=== PATIENT | female | born 1995 | race Caucasian/White ===

== ENCOUNTER 2018-04-04 01:00 | Emergency (ER) | payer SELFPAY ==
[2018-04-04] MEDS ORDERED: MUPIROCIN 2% OINT 22GM TUBE TOP ONE (01:36)
[2018-04-04] MEDS ORDERED: HYDROCODONE/APAP 5/325 MG TAB ONE (01:41)
--- NOTE | 2018-04-04 01:44 | ER ---
Nurse's Notes [facility] Name: Enid Munguia Age: 22 yrs Sex: Female : 1995 Arrival Date: 04/04/2018 Time: 01:05 Bed 7 Private MD: Diagnosis: Painful lesion right perineum Presentation: 04/04 01:11 Presenting complaint: Patient states: I'VE GOT A RED BUMPY AREA NEAR MY UTERUS AND IT bp HURTS WHEN I PEE. Transition of care: patient was not received from another setting of care. Onset of symptoms is unknown. Initial Sepsis Screen: Does the patient meet any 2 criteria? HR > 90 bpm. No. Patient's initial sepsis screen is negative. Does the patient have a suspected source of infection? No. Patient's initial sepsis screen is negative. Care prior to arrival: None. 01:11 Method Of Arrival: Ambulatory bp 01:11 Acuity: DERRELL 3 bp Triage Assessment: 01:13 General: Appears in no apparent distress. comfortable, Behavior is calm, cooperative, bp appropriate for age. Pain: Complains of pain in pelvis. GI: No signs and/or symptoms were reported involving the gastrointestinal system. 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 - Social history:: Smoking status: Patient uses tobacco products, denies chronic smoking, but will smoke occasionally, Patient/guardian denies using alcohol. Screenin:38 Abuse screen: Denies threats or abuse. Denies injuries from another. Nutritional mg2 screening: No deficits noted. Tuberculosis screening: No symptoms or risk factors identified. Fall Risk None identified. Assessment: 01:36 General: Appears in no apparent distress. comfortable, Behavior is calm, cooperative. mg2 Pain: Complains of pain in right groin area Pain does not radiate. Pain currently is 3 out of 10 on a pain scale. Quality of pain is described as aching, Is intermittent, Aggravated by touch. Neuro: Level of Consciousness is awake, alert, obeys commands, Oriented to person, place, time. Cardiovascular: Capillary refill < 3 seconds Patient's skin is warm and dry. Respiratory: Airway is patent Respiratory effort is even, unlabored, Respiratory pattern is regular, symmetrical. GI: No signs and/or symptoms were reported involving the gastrointestinal system. : Blisters noted on labia. EENT: No signs and/or symptoms were reported regarding the EENT system. Derm: No signs and/or symptoms reported regarding the dermatologic system. Derm: No signs and/or symptoms reported regarding the dermatologic system. Skin is intact, Skin is pink, warm \T\ dry. normal. Musculoskeletal: No signs and/or symptoms reported regarding the musculoskeletal system. Vital Signs: 01:13 BP 120 / 91; Pulse 97; Resp 16; Temp 98.4; Pulse Ox 97% ; Weight 81.65 kg; Height 5 ft. bp 2 in. (157.48 cm); 01:13 Body Mass Index 32.92 (81.65 kg, 157.48 cm) bp ED Course: 01:05 Patient arrived in ED. al2 01:12 Triage completed. bp 01:13 Arm band placed on. bp 01:28 Juan Samson MD is Attending Physician. pkl 01:33 London Perez, CASSIDY is Primary Nurse. mg2 01:39 Patient has correct armband on for positive identification. Placed in gown. Bed in low mg2 position. Call light in reach. Door closed. Warm blanket given. 02:04 No provider procedures requiring assistance completed. Patient did not have IV access mg2 during this emergency room visit. Administered Medications: 01:42 Drug: [place] 5 mg-325 mg 1 tabs Route: PO; mg2 02:04 Follow up: Response: No adverse reaction; Medication administered at discharge. mg2 Outcome: 01:44 Discharge ordered by . pkl 02:05 Discharged to home ambulatory. mg2 02:05 Condition: stable 02:05 Discharge instructions given to patient, Instructed on discharge instructions, follow up and referral plans. Demonstrated understanding of instructions, follow-up care, medications, Prescriptions given X 2. 02:05 Patient left the ED. mg2 Signatures: Juan Samson MD MD pkl Peltier, Brian RN Gisell Lynch al2 London Perez RN RN mg2
--- NOTE | 2018-04-04 01:45 | EDPHYS ---
Physician Documentation [facility] Name: Enid Munguia Age: 22 yrs Sex: Female : 1995 Arrival Date: 04/04/2018 Time: 01:05 Bed 7 Private MD: ED Physician Juan Samson HPI: 04/04 01:36 This 22 yrs old Female presents to ER via Ambulatory with complaints of pkl Abdominal Pain. 01:36 The patient presents with painful bump right perineum. Onset: The symptoms/episode pkl began/occurred 1 week(s) ago. Has appt. at [facility] on ( 04/05/18 ). 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 - Social history:: Smoking status: Patient uses tobacco products, denies chronic smoking, but will smoke occasionally, Patient/guardian denies using alcohol. ROS: 01:36 Positive for painful bump right perineum . pkl 01:36 Eyes: Negative for injury, pain, redness, and discharge, ENT: Negative for injury, pain, and discharge, Neck: Negative for injury, pain, and swelling, Cardiovascular: Negative for chest pain, palpitations, and edema, Respiratory: Negative for shortness of breath, cough, wheezing, and pleuritic chest pain, Abdomen/GI: Negative for abdominal pain, nausea, vomiting, diarrhea, and constipation, Back: Negative for injury and pain. 01:36 MS/extremity: Negative for acute changes. 01:36 Skin: Negative for rash. 01:36 Neuro: Negative for altered mental status. Exam: 01:36 Head/Face: Normocephalic, atraumatic. Eyes: Pupils equal round and reactive to light, pkl extra-ocular motions intact. Lids and lashes normal. Conjunctiva and sclera are non-icteric and not injected. Cornea within normal limits. Periorbital areas with no swelling, redness, or edema. ENT: Nares patent. No nasal discharge, no septal abnormalities noted. Tympanic membranes are normal and external auditory canals are clear. Oropharynx with no redness, swelling, or masses, exudates, or evidence of obstruction, uvula midline. Mucous membranes moist. Neck: Trachea midline, no thyromegaly or masses palpated, and no cervical lymphadenopathy. Supple, full range of motion without nuchal rigidity, or vertebral point tenderness. No Meningismus. Chest/axilla: Normal chest wall appearance and motion. Nontender with no deformity. No lesions are appreciated. Cardiovascular: Regular rate and rhythm with a normal S1 and S2. No gallops, murmurs, or rubs. Normal PMI, no JVD. No pulse deficits. Respiratory: Lungs have equal breath sounds bilaterally, clear to auscultation and percussion. No rales, rhonchi or wheezes noted. No increased work of breathing, no retractions or nasal flaring. Abdomen/GI: Soft, non-tender, with normal bowel sounds. No distension or tympany. No guarding or rebound. No evidence of tenderness throughout. Back: No spinal tenderness. No costovertebral tenderness. Full range of motion. 01:36 : Pelvic Exam: External exam: painful bump right perineum. 01:36 Musculoskeletal/extremity: Exam is negative for acute changes. 01:36 Neuro: Orientation: is normal, Mentation: is normal, Cranial nerves: grossly normal, Motor: is normal. Vital Signs: 01:13 BP 120 / 91; Pulse 97; Resp 16; Temp 98.4; Pulse Ox 97% ; Weight 81.65 kg; Height 5 ft. bp 2 in. (157.48 cm); 01:13 Body Mass Index 32.92 (81.65 kg, 157.48 cm) bp MDM: 01:28 Patient medically screened. pkl 01:43 Data reviewed: vital signs, nurses notes. pkl Administered Medications: 01:42 Drug: [place] 5 mg-325 mg 1 tabs Route: PO; mg2 02:04 Follow up: Response: No adverse reaction; Medication administered at discharge. mg2 Disposition: 04/04/18 01:44 Discharged to Home. Impression: Painful lesion right perineum. - Condition is Stable. - Prescriptions for Ultram 50 mg Oral Tablet - take 1 tablet by ORAL route every 8 hours As needed; 20 tablet. Doxycycline Hyclate 100 mg Oral Tablet - take 1 tablet by ORAL route every 12 hours; 20 tablet. - Medication Reconciliation Form, Thank You Letter, Antibiotic Education, Prescription Opioid Use form. - Follow up: Private Physician; When: 2 - 3 days; Reason: Re-evaluation by your physician. - Problem is new. - Symptoms are unchanged. Signatures: Juan Samson MD MD pkl Hammad Orta, RN RN bp London Perez, RN RN mg2 Corrections: (The following items were deleted from the chart) 02:05 01:44 04/04/2018 01:44 Discharged to Home. Impression: Painful lesion right perineum. mg2 Condition is Stable. Forms are Medication Reconciliation Form, Thank You Letter, Antibiotic Education, Prescription Opioid Use. Follow up: Private Physician; When: 2 - 3 days; Reason: Re-evaluation by your physician. Problem is new. Symptoms are unchanged. pkl
== END 2018-04-04 02:05 | disposition home or self-care (01) ==
LOC: ER 01:00
DX: N90.89 Other specified noninflammatory disorders of vulva and perineum (principal); Z72.0 Tobacco use
CPT/HCPCS: 99283

== ENCOUNTER 2018-04-15 20:19 | Emergency (ER) | payer SELFPAY ==
[2018-04-15] MEDS ORDERED: NA CHLORIDE 0.9% 1,000 ML ONE (20:39)
[2018-04-15 21:03] LABS: Absolute Lymphocytes (CBC) 2.1 K/uL (0.7-4.9); Absolute Monocytes 0.6 K/uL (0.1-1.3); Basophils % 0.3 % (0-1.3); Eosinophils % 0.3 % (0-4.4); Hematocrit 39.5 % (36.0-45.0); Lymphocytes % 19.6 % (15.3-44.8); MCH 24.8 pg (27.0-35.0); MPV 7.8 fL (7.6-11.3); Monocytes % 5.7 % (3.3-12.3); RBC Red Blood Cell Count 5.41 M/uL (3.86-4.86)
[2018-04-15 21:06] LABS: Bicarbonate 20 mEq/L (21-31); Glucose Level 110 mg/dL (65-120); Potassium 3.6 mEq/L (3.6-5.0); Sodium Level 136 mEq/L (135-145)
[2018-04-15 21:07] LABS: BUN Blood Urea Nitrogen 8 mg/dL (6-20)
[2018-04-15 21:19] LABS: Urine Blood NEGATIVE (NEG); Urine Glucose NEGATIVE (NEG); Urine Protein NEGATIVE (NEG); Urine Specific Gravity >1.030 (1.005-1.030)
--- NOTE | 2018-04-15 21:43 | RAD REPORT ---
EXAM DESCRIPTION: CT - Head C Spine Mpr Wo Con - 04/15/2018 9:08 pm CLINICAL HISTORY: Head and neck injury status post fall. Head and neck pain COMPARISON: None. TECHNIQUE: Computed axial tomography of the head and cervical spine was obtained. Sagittal and coronal reconstruction was performed. All CT scans are performed using dose optimization technique as appropriate and may include automated exposure control or mA/KV adjustment according to patient size. FINDINGS: An intracranial bleed is not seen. The ventricles are normal in caliber. An extra-axial fl uid collection is not noted.Fluid within the visualized sinuses and mastoids is not seen A cervical fracture is not visualized. No dislocation is noted. 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 A cervical fracture is not visualized. If the patient continues to have symptoms to suggest intracra nial /spinal cord pathology then MRI would be recommended
[2018-04-15] MEDS ORDERED: ACETAMINOPHEN 500 MG TAB ONE (21:51)
--- NOTE | 2018-04-15 22:06 | RAD REPORT ---
EXAM DESCRIPTION: RAD - Pelvis - 04/15/2018 9:21 pm CLINICAL HISTORY: Pelvic pain status post injury FINDINGS: No fracture or dislocation is seen.
--- NOTE | 2018-04-15 22:08 | RAD REPORT ---
EXAM DESCRIPTION: Indu Single View04/15/2018 9:21 pm CLINICAL HISTORY: Chest pain COMPARISON: none FINDINGS: The lungs appear clear of acute infiltrate. The heart is normal size IMPRESSION: No acute abnormalities displayed
[2018-04-15] MEDS ORDERED: ONDANSETRON 4 MG/2 ML VIAL ONE ×2 (22:10→23:38)
[2018-04-15] MEDS ORDERED: NA CHLORIDE 0.9% 500 ML ONE (23:37)
[2018-04-15] MEDS ORDERED: METOCLOPRAMIDE 10 MG/2mL INJ ONE (23:37)
[2018-04-15] MEDS ORDERED: Morphine 2 MG/2 ML SYR ONE (23:39)
--- NOTE | 2018-04-15 23:43 | EDPHYS ---
Physician Documentation [facility] Name: Enid Munguia Age: 22 yrs Sex: Female : 1995 Arrival Date: 04/15/2018 Time: 20:22 Bed 14 Private MD: ED Physician Juan Samson HPI: 04/15 20:25 This 22 yrs old Female presents to ER via EMS with complaints of Fall Injury. cp 20:25 Details of fall: The patient fell from an upright position, while walking, and struck a cp tile surface. 20:25 Onset: The symptoms/episode began/occurred just prior to arrival. Associated injuries: cp The patient sustained injury to the head, contusion, swelling, tenderness. Severity of symptoms: in the emergency department the symptoms are unchanged, despite EMS interventions. Patient reports slip and fall tonight while in kitchen. Unwitnessed with LOC. 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 - Social history:: Smoking status: Patient/guardian denies using tobacco. ROS: 20:30 Constitutional: Negative for body aches, chills, fever, poor PO intake. cp 20:30 Eyes: Negative for injury, pain, redness, and discharge. cp 20:30 ENT: Negative for drainage from ear(s), ear pain, sore throat, difficulty swallowing, difficulty handling secretions. 20:30 Neck: Negative for stiffness. 20:30 Cardiovascular: Negative for chest pain, edema, palpitations. 20:30 Respiratory: Negative for cough, shortness of breath, wheezing. 20:30 Abdomen/GI: Negative for abdominal pain, vomiting, diarrhea, constipation, black/tarry stool, rectal bleeding. 20:30 Back: Negative for pain at rest, pain with movement, radiated pain. 20:30 Skin: Negative for cellulitis, rash. 20:30 Neuro: Positive for headache, loss of consciousness, Negative for seizure activity. 20:30 All other systems are negative. Exam: 20:38 Constitutional: The patient appears in no acute distress, alert, awake, non-toxic, well cp developed, well nourished. 20:38 Head/face: Noted is contusion, that is superficial, of the forehead, swelling, that is cp mild, of the forehead, tenderness, that is moderate, of the forehead. 20:38 Eyes: Periorbital structures: appear normal, Pupils: equal, round, and reactive to light and accomodation, Extraocular movements: intact throughout, Conjunctiva: normal, no exudate, no injection, Sclera: no appreciated abnormality, Lids and lashes: appear normal, bilaterally. 20:38 ENT: External ear(s): are unremarkable, Ear canal(s): are normal, clear, TM's: bulging, is not appreciated, bilaterally, dullness, bilaterally, erythema, is not appreciated, bilaterally, Nose: is normal, Mouth: Lips: moist, Oral mucosa: pink and intact, moist, Posterior pharynx: is normal, airway is patent, no erythema, no exudate. 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 20:38 Cardiovascular: Rate: normal, Rhythm: regular, Pulses: Pulses are 2+ in right radial artery and left radial artery. Edema: is not appreciated, JVD: is not appreciated. 20:38 Respiratory: the patient does not display signs of respiratory distress, Respirations: normal, no use of accessory muscles, no retractions, no splinting, no tachypnea, Breath sounds: are clear throughout, no decreased breath sounds, no stridor, no wheezing. 20:38 Abdomen/GI: Inspection: abdomen appears normal, Bowel sounds: active, all quadrants, Palpation: abdomen is soft and non-tender, in all quadrants, rebound tenderness, is not appreciated, voluntary guarding, is not appreciated, involuntary guarding, is not appreciated. 20:38 Back: pain, is absent. 20:38 Musculoskeletal/extremity: Exam is negative for calf tenderness, decreased range of motion, deformity, injury. 20:38 Skin: cellulitis, is not appreciated, no rash present. 20:38 Neuro: Orientation: to person, place, Mentation: able to follow commands, slow to respond, Cerebellar function: is grossly normal, Motor: moves all fours, strength is normal, Sensation: no obvious gross deficits. 21:35 ECG was reviewed by the Attending Physician. cp Vital Signs: 20:33 BP 140 / 97; Pulse 91; Resp 18; Pulse Ox 100% on R/A; Weight 72.57 kg; Height 5 ft. 5 mg2 in. (165.10 cm); Pain 9/10; 20:33 Temp 98.4(O); aa1 21:31 BP 113 / 73; Pulse 101; Resp 18; Pulse Ox 98% on R/A; mg2 22:32 BP 117 / 71; Pulse 91; Resp 18; Pulse Ox 100% on R/A; Pain 2/10; mg2 23:32 Pulse 91; Resp 18; Pulse Ox 99% on R/A; Pain 0/10; mg2 04/16 00:31 BP 131 / 67; Pulse 89; Resp 16; Pulse Ox 99% on R/A; aa1 04/15 20:33 Body Mass Index 26.63 (72.57 kg, 165.10 cm) mg2 [place] Coma Score: 04/15 20:33 Eye Response: spontaneous(4). Verbal Response: confused(4). Motor Response: obeys mg2 commands(6). Total: 14. 20:38 Eye Response: spontaneous(4). Verbal Response: confused(4). Motor Response: obeys cp commands(6). Total: 14. 21:31 Eye Response: spontaneous(4). Verbal Response: confused(4). Motor Response: obeys mg2 commands(6). Total: 14. 22:32 Eye Response: spontaneous(4). Verbal Response: confused(4). Motor Response: obeys mg2 commands(6). Total: 14. 23:32 Eye Response: spontaneous(4). Verbal Response: oriented(5). Motor Response: obeys mg2 commands(6). Total: 15. 04/16 00:31 Eye Response: spontaneous(4). Verbal Response: oriented(5). Motor Response: obeys aa1 commands(6). Total: 15. Trauma Score (Adult): 04/15 20:33 Eye Response: spontaneous(1); Verbal Response: confused(1); Motor Response: obeys mg2 commands(2); Systolic BP: > 89 mm Hg(4); Respiratory Rate: > 29 per min(3); Yasmin Score: 14; Trauma Score: 11 MDM: 20:25 Patient medically screened. 21:00 Differential diagnosis: closed head injury, contusion, fracture, laceration, multiple cp trauma. 23:42 Data reviewed: vital signs, nurses notes, lab test result(s), radiologic studies, CT cp scan. 23:42 Counseling: I had a detailed discussion with the patient and/or guardian regarding: the cp historical points, exam findings, and any diagnostic results supporting the discharge/admit diagnosis, lab results, radiology results, the need for outpatient follow up, a neurologist, to return to the emergency department if symptoms worsen or persist or if there are any questions or concerns that arise at home. Response to treatment: the patient's symptoms have markedly improved after treatment. 23:42 Special discussion: Based on the patient's history, exam and DX evaluation, there is no cp indication for emergent intervention or inpatient TX. It is understood by the patient/guardian that if the SXs persist or worsen they need to return immediately for re-evaluation. 04/15 20:25 Order name: Basic Metabolic Panel; Complete Time: 21:46 04/15 23:41 Interpretation: Normal except: CO2 20. 04/15 20:25 Order name: CBC with Diff; Complete Time: 21:46 04/15 23:41 Interpretation: Normal except: RBC 5.41; MCV 73.0; MCH 24.8; RDW 15.5; RONAL% 74.1. 04/15 20:25 Order name: Type And Screen; Complete Time: 23:40 04/15 21:01 Order name: Urine Dipstick--Ancillary (enter results); Complete Time: 21:46 mw2 04/15 21:01 Order name: Urine --Ancillary (enter results); Complete Time: 21:46 mw2 04/15 23:41 Interpretation: Reviewed. 04/15 20:25 Order name: CT Head C Spine; Complete Time: 21:46 04/15 21:47 Interpretation: Reviewed report. 04/15 20:25 Order name: XRAY Pelvis; Complete Time: 23:40 cp 04/15 23:40 Interpretation: Report reviewed. 04/15 20:25 Order name: XRAY Chest (1 view); Complete Time: 23:40 04/15 23:40 Interpretation: Report review. 04/15 20:25 Order name: EKG; Complete Time: 20:26 cp 04/15 20:25 Order name: EKG - Nurse/Tech; Complete Time: 21:44 cp 04/15 20:25 Order name: Urine Test (obtain specimen); Complete Time: 20:51 cp 04/15 20:25 Order name: Labs collected and sent; Complete Time: 20:51 cp 04/15 20:25 Order name: Urine Dipstick-Ancillary (obtain specimen); Complete Time: 20:51 cp 04/15 22:05 Order name: PO challenge; Complete Time: 22:31 cp EC:35 Rate is 99 beats/min. Rhythm is regular. [place] interval is normal. QRS interval is normal. cp QT interval is normal. No ST changes noted. Interpreted by me. Reviewed by me. Administered Medications: 20:43 Drug: NS 0.9% 1000 ml Route: IV; Rate: 1 bolus; Site: right antecubital; aa1 22:14 Follow up: Response: No adverse reaction; IV Status: Completed infusion mg2 21:54 Drug: Tylenol 1000 mg Route: PO; mg2 22:14 Drug: Zofran 4 mg Route: IVP; Site: right antecubital; mg2 23:25 CANCELLED (Physician Discretion): Decadron - Dexamethasone 10 mg IVP once cp 23:48 Drug: Reglan 10 mg Route: IVP; Site: right antecubital; mg2 23:48 Drug: NS 0.9% 500 ml Route: IV; Rate: bolus; Site: right antecubital; mg2 04/16 00:49 Follow up: IV Status: Completed infusion aa1 04/15 23:48 Drug: morphine 2 mg Route: IVP; Site: right antecubital; mg2 04/16 00:49 Follow up: Response: No adverse reaction; Pain is decreased aa1 04/15 23:48 Drug: Zofran 4 mg Route: IVP; Site: right antecubital; mg2 04/16 00:49 Follow up: Response: No adverse reaction; Nausea is decreased aa1 Disposition: 01:00 Chart complete. cp 06:23 Co-signature as Attending Physician, Juan Samson MD. pkl Disposition: 04/15/18 23:43 Discharged to Home. Impression: Concussion with loss of consciousness of unspecified duration, Contusion of unspecified part of head. - Condition is Stable. - Discharge Instructions: Concussion, Adult, Head Injury, Adult. - Prescriptions for Fiorinal 50- 325-40 mg Oral Capsule - take 1 capsule by ORAL route every 4 hours As needed - not to exceed 6 capsules per day; 20 capsule. Zofran 4 mg Oral Tablet - take 1 tablet by ORAL route every 12 hours As needed; 20 tablet. - Medication Reconciliation Form, Thank You Letter, Antibiotic Education, Prescription Opioid Use form. - Follow up: Mike Ace MD; When: 2 - 3 days; Reason: Recheck today's complaints. - Problem is new. - Symptoms have improved. Signatures: Dispatcher [employer] EDMS Federica Ryan RN RN aa1 Juan Samson MD MD pkl Logan Natarajan PA PA London Weldon RN RN mg2 Corrections: (The following items were deleted from the chart) 04/15 21:20 20:26 Creatinine for Radiology+C.LAB.BRZ ordered. EDUT EDUT 23:25 23:25 Decadron - Dexamethasone 10 mg IVP once ordered. oziel ludwig 04/16 00:52 04/15 23:43 04/15/2018 23:43 Discharged to Home. Impression: Concussion with loss of aa1 consciousness of unspecified duration; Contusion of unspecified part of head. Condition is Stable. Forms are Medication Reconciliation Form, Thank You Letter, Antibiotic Education, Prescription Opioid Use. Follow up: Mike Ace; When: 2 - 3 days; Reason: Recheck today's complaints. Problem is new. Symptoms have improved. cp
--- NOTE | 2018-04-15 23:43 | ER ---
Nurse's Notes [facility] Name: Enid Munguia Age: 22 yrs Sex: Female : 1995 Arrival Date: 04/15/2018 Time: 20:22 Bed 14 Private MD: Diagnosis: Concussion with loss of consciousness of unspecified duration;Contusion of unspecified part of head Presentation: 04/15 20:25 Presenting complaint: EMS states: patient slipped at home unwitnessed and hit her head. mg2 sustained pain in the forehead. alert and mildly disoriented. C- collar in placed. she had bouts of disorientation and anxiety while in the ambulance. Care prior to arrival: c collar and backboard. Mechanism of Injury: Fall slipped in the floor. Trauma event details: Injury occurred [place] the [place] of Injury occurred[place]. Injury occurred: April 15, 2018. Activity prior to arrival: unrecalled. 20:25 Acuity: DERRELL 3 mg2 20:25 Method Of Arrival: EMS mg2 20:25 Transition of care: patient was not received from another setting of care. Onset of mg2 symptoms is unknown. Initial Sepsis Screen: Does the patient meet any 2 criteria? No. Patient's initial sepsis screen is negative. Does the patient have a suspected source of infection? No. Patient's initial sepsis screen is negative. 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 mg2 21:38 urine preg test Negative mg2 Trauma Activation: Alert Physician: ED Physician; Name: Savanna; Notified At: 20:16; Arrived At: 20:16 Physician: General Surgeon; Name: ; Notified At: 20:16; Arrived At: Physician: Radiology; Name: Farheen Vaz Leslie; Notified At: 20:16; Arrived At: 20:18 Physician: Respiratory; Name: ; Notified At: 20:16; Arrived At: Physician: Lab; Name: ; Notified At: 20:16; Arrived At: Historical: - Allergies: 20:35 No Known Allergies; mg2 - PMHx: 20:35 Ovarian cyst; ADD/ADHD; mg2 - PSHx: 20:35 Unable to obtain; mg2 - Immunization history: Last tetanus immunization: unknown. - Social history:: Smoking status: Patient/guardian denies using tobacco. Screenin:34 Abuse screen: Denies threats or abuse. Denies injuries from another. Tuberculosis mg2 screening: No symptoms or risk factors identified. Fall risk At risk due to prior history of falls. 21:38 Nutritional screening: No deficits noted. Fall Risk Fall in past 12 months (25 points). mg2 IV access (20 points). Primary Survey: 20:31 A: Airway: patent. Breathing/Chest: Respiratory pattern: regular, Respiratory effort: mg2 spontaneous, unlabored. Circulation: Skin color: pink. Disability Alert. 21:36 Reassessment Breathing/Chest Respiratory pattern. Reassessment Breathing/Chest mg2 Respiratory pattern Regular. Secondary Survey: 20:32 HEENT: Head Other mild swelling in the forehead. Gastrointestinal: No deficits noted. mg2 : No signs and/or symptoms were reported regarding the genitourinary system. Musculoskeletal: Circulation, motion, and sensation intact. Injury Description: Head injury sustained to head. Assessment: 21:00 General: Appears in no apparent distress. Behavior is cooperative, anxious. Pain: mg2 Complains of pain in forehead Pain does not radiate. Pain currently is 9 out of 10 on a pain scale. Quality of pain is described as aching, Pain began suddenly, Is intermittent, Alleviated by rest, relaxation, Noted to be confused, Also complains of history of fall. Neuro: Level of Consciousness is awake, alert, obeys commands, Oriented to person, place, time. Cardiovascular: Capillary refill < 3 seconds Patient's skin is warm and dry. Respiratory: Airway is patent Respiratory effort is even, unlabored, Respiratory pattern is regular, symmetrical. GI: No signs and/or symptoms were reported involving the gastrointestinal system. : No signs and/or symptoms were reported regarding the genitourinary system. EENT: No signs and/or symptoms were reported regarding the EENT system. Derm: Skin is intact, Skin is pink, warm \T\ dry. normal. Musculoskeletal: Circulation, motion, and sensation intact. Swelling present in forehead. Injury Description: Head injury. 21:21 Reassessment: patient still in ct scan. mg2 21:34 Reassessment: patient back in ct. mg2 23:49 Reassessment: patient is already for discharge but still on iv fluid. General:. mg2 04/16 00:50 Reassessment: Patient appears in no apparent distress at this time. Patient is alert, aa1 oriented x 3, equal unlabored respirations, skin warm/dry/pink. Discussed d/c \T\ f/u instructions with pt \T\ significant other; denies questions or concerns at this time Patient states feeling better. Vital Signs: 04/15 20:33 BP 140 / 97; Pulse 91; Resp 18; Pulse Ox 100% on R/A; Weight 72.57 kg; Height 5 ft. 5 mg2 in. (165.10 cm); Pain 9/10; 20:33 Temp 98.4(O); aa1 21:31 BP 113 / 73; Pulse 101; Resp 18; Pulse Ox 98% on R/A; mg2 22:32 BP 117 / 71; Pulse 91; Resp 18; Pulse Ox 100% on R/A; Pain 2/10; mg2 23:32 Pulse 91; Resp 18; Pulse Ox 99% on R/A; Pain 0/10; mg2 04/16 00:31 BP 131 / 67; Pulse 89; Resp 16; Pulse Ox 99% on R/A; aa1 04/15 20:33 Body Mass Index 26.63 (72.57 kg, 165.10 cm) mg2 Yasmin Coma Score: 04/15 20:33 Eye Response: spontaneous(4). Verbal Response: confused(4). Motor Response: obeys mg2 commands(6). Total: 14. 20:38 Eye Response: spontaneous(4). Verbal Response: confused(4). Motor Response: obeys cp commands(6). Total: 14. 21:31 Eye Response: spontaneous(4). Verbal Response: confused(4). Motor Response: obeys mg2 commands(6). Total: 14. 22:32 Eye Response: spontaneous(4). Verbal Response: confused(4). Motor Response: obeys mg2 commands(6). Total: 14. 23:32 Eye Response: spontaneous(4). Verbal Response: oriented(5). Motor Response: obeys mg2 commands(6). Total: 15. 04/16 00:31 Eye Response: spontaneous(4). Verbal Response: oriented(5). Motor Response: obeys aa1 commands(6). Total: 15. Trauma Score (Adult): 04/15 20:33 Eye Response: spontaneous(1); Verbal Response: confused(1); Motor Response: obeys mg2 commands(2); Systolic BP: > 89 mm Hg(4); Respiratory Rate: > 29 per min(3); [place] Score: 14; Trauma Score: 11 ED Course: 20:22 Patient arrived in ED. fc 20:22 Logan Natarajan PA is PHCP. cp 20:22 Juan Samson MD is Attending Physician. cp 20:25 London Perez, CASSIDY is Primary Nurse. mg2 20:31 Triage completed. mg2 20:34 Patient has correct armband on for positive identification. Bed in low position. Side mg2 rails up X2. 20:40 Initial lab(s) drawn, by me, sent to lab. T\T\S collected, blood band applied to patient. aa1 Inserted saline lock: 20 gauge in right antecubital area, using aseptic technique. Blood collected. 21:04 Urine collected: straight cath specimen, clear, Amount Returned: 50mL. mg2 21:05 CT completed. Patient moved to CT via stretcher. Patient moved to radiology. cw1 21:08 CT Head C Spine In Process Unspecified. EDMS 21:19 X-ray completed. Patient tolerated procedure well. jw2 21:20 XRAY Pelvis In Process Unspecified. EDMS 21:20 XRAY Chest (1 view) In Process Unspecified. EDMS 21:40 Patient maintains SpO2 saturation greater than 95% on room air. Thermoregulation: warm mg2 blanket given to patient. 21:41 Arm band placed on right wrist. Patient placed in the treatment room, on a stretcher, mg2 on pulse oximetry. 21:41 EKG done, by ED staff. mg2 23:42 Mike Ace MD is Referral Physician. cp 04/16 00:50 No provider procedures requiring assistance completed. IV discontinued, intact, aa1 bleeding controlled, No redness/swelling at site. Pressure dressing applied. Administered Medications: 04/15 20:43 Drug: NS 0.9% 1000 ml Route: IV; Rate: 1 bolus; Site: right antecubital; aa1 22:14 Follow up: Response: No adverse reaction; IV Status: Completed infusion mg2 21:54 Drug: Tylenol 1000 mg Route: PO; mg2 22:14 Drug: Zofran 4 mg Route: IVP; Site: right antecubital; mg2 23:25 CANCELLED (Physician Discretion): Decadron - Dexamethasone 10 mg IVP once cp 23:48 Drug: Reglan 10 mg Route: IVP; Site: right antecubital; mg2 23:48 Drug: NS 0.9% 500 ml Route: IV; Rate: bolus; Site: right antecubital; mg2 04/16 00:49 Follow up: IV Status: Completed infusion aa1 04/15 23:48 Drug: morphine 2 mg Route: IVP; Site: right antecubital; mg2 04/16 00:49 Follow up: Response: No adverse reaction; Pain is decreased aa1 04/15 23:48 Drug: Zofran 4 mg Route: IVP; Site: right antecubital; mg2 04/16 00:49 Follow up: Response: No adverse reaction; Nausea is decreased aa1 Intake: 04/15 22:16 PO: 20ml (Water); IV: 1000ml; Total: 1020ml. mg2 Output: 20:45 Urine: 50ml (Straight Cath); Total: 50ml. mg2 Outcome: 23:43 Discharge ordered by . 04/16 00:50 Discharged to home ambulatory, with significant other. aa1 Condition: good Discharge instructions given to patient, significant other, Instructed on discharge instructions, follow up and referral plans. medication usage, Demonstrated understanding of instructions, follow-up care, medications, Prescriptions given X 2. 00:52 Patient left the ED. aa1 Signatures: Dispatcher [employer] EDFederica Evangelista RN RN aa1 Shyann Funes RN RN fc Woodley, Crystal cw1 Logan Natarajan PA PA cp Wailes, Jenni 2 London Perez RN RN mg2 Corrections: (The following items were deleted from the chart) 04/15 22:35 20:33 GCS: 15, mg2 mg2 22:35 21:31 GCS: 15, mg2 mg2
--- NOTE | 2018-04-16 07:59 | EKG ---
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
== END 2018-04-16 00:52 | disposition home or self-care (01) ==
LOC: ER 20:19
DX: S06.0X9A Concussion with loss of consciousness of unspecified duration, initial encounter (principal); W01.0XXA Fall on same level from slipping, tripping and stumbling without subsequent striking against object, initial encounter; Y93.01 Activity, walking, marching and hiking; Y92.000 Kitchen of unspecified non-institutional (private) residence as the place of occurrence of the external cause
CPT/HCPCS: 36415; 70450; 71045; 72125; 72170; 80048; 81003; 81025; 85025; 86850; 86900; 86901; 93005; 96361; 96374; 96375; 99285; J2270; J2405; J2765; J7030

== ENCOUNTER 2019-01-22 00:02 | Emergency (ER) | payer OTHER, SELFPAY ==
--- NOTE | 2019-01-22 01:14 | EDPHYS ---
Physician Documentation [facility] Name: Enid Munguia Age: 23 yrs Sex: Female : 1995 Arrival Date: 01/22/2019 Time: 00:07 Bed 19 Private MD: ED Physician Cordell Moya HPI: 01/22 01:20 This 23 yrs old Female presents to ER via Ambulatory with complaints of Back tw4 Pain - 11 wks . 01:20 The patient presents with pain and decreased range of motion, and an injury. The tw4 symptoms are located in the left low back and right low back. Onset: The symptoms/episode began/occurred today. The pain does not radiate. Associated signs and symptoms: The patient has no apparent associated signs or symptoms. The problem was sustained during a fall, while standing. Modifying factors: The patient symptoms are alleviated by nothing, the patient symptoms are aggravated by. The patient has not experienced similar symptoms in the past. 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 - Social history:: Smoking status: Patient/guardian denies using tobacco. - Ebola Screening: : No symptoms or risks identified at this time. ROS: 01:20 Constitutional: Negative for fever, chills, and weight loss, Eyes: Negative for injury, tw4 pain, redness, and discharge, Cardiovascular: Negative for chest pain, palpitations, and edema, Respiratory: Negative for shortness of breath, cough, wheezing, and pleuritic chest pain, Abdomen/GI: Negative for abdominal pain, nausea, vomiting, diarrhea, and constipation. 01:20 MS/Extremity: Negative for injury and deformity, Skin: Negative for injury, rash, and discoloration, Neuro: Negative for headache, weakness, numbness, tingling, and seizure. 01:20 Back: Positive for injury or acute deformity, pain with movement. Exam: 01:20 Constitutional: This is a well developed, well nourished patient who is awake, alert, tw4 and in no acute distress. Head/Face: Normocephalic, atraumatic. Chest/axilla: Normal chest wall appearance and motion. Nontender with no deformity. No lesions are appreciated. Cardiovascular: Regular rate and rhythm with a normal S1 and S2. No gallops, murmurs, or rubs. Normal PMI, no JVD. No pulse deficits. Respiratory: Lungs have equal breath sounds bilaterally, clear to auscultation and percussion. No rales, rhonchi or wheezes noted. No increased work of breathing, no retractions or nasal flaring. Abdomen/GI: Soft, non-tender, with normal bowel sounds. No distension or tympany. No guarding or rebound. No evidence of tenderness throughout. 01:20 MS/ Extremity: Pulses equal, no cyanosis. Neurovascular intact. Full, normal range of motion. Neuro: Awake and alert, GCS 15, oriented to person, place, time, and situation. Cranial nerves II-XII grossly intact. Motor strength 5/5 in all extremities. Sensory grossly intact. Cerebellar exam normal. Normal gait. Psych: Awake, alert, with orientation to person, place and time. Behavior, mood, and affect are within normal limits. 01:20 Back: pain, that is moderate, ROM is painful. 01:20 Back: pain, of the left low back and right low back. 01:20 Back: pain, that is moderate, muscle spasm, is appreciated in the left low back and tw4 right low back. Vital Signs: 00:24 BP 129 / 80; Pulse 106; Resp 18; Temp 98.1; Pulse Ox 99% on R/A; Weight 82.55 kg (R); ea Height 5 ft. (152.40 cm) (R); Pain 10/10; 01:20 BP 121 / 70; Pulse 99; Resp 17; Pulse Ox 99% ; rr5 00:24 Body Mass Index 35.54 (82.55 kg, 152.40 cm) ea MDM: 00:25 Patient medically screened. tw4 01:20 Data reviewed: vital signs, nurses notes. Counseling: I had a detailed discussion with tw4 the patient and/or guardian regarding: the historical points, exam findings, and any diagnostic results supporting the discharge/admit diagnosis. Medication response: Response to treatment: the patient's symptoms have mildly improved after treatment, and as a result, I will discharge patient. Special discussion: I discussed with the patient/guardian in detail that at this point there is no indication for admission to the hospital. It is understood, however, that if the symptoms persist or worsen the patient needs to return immediately for re-evaluation. 01/22 00:17 Order name: Urine Culture snw 01/22 00:17 Order name: Urine Microscopic Only snw 01/22 00:17 Order name: Urine Test (obtain specimen); Complete Time: 00:48 snw 01/22 00:50 Order name: Urine Dipstick--Ancillary (enter results) 2 01/22 00:50 Order name: Urine --Ancillary (enter results) 2 01/22 00:17 Order name: Urine Dipstick-Ancillary (obtain specimen); Complete Time: 00:48 snw Administered Medications: 01:10 Drug: Tylenol 1000 mg Route: PO; rr5 01:23 Follow up: Response: Medication administered at discharge. rr5 Disposition: 01/22/19 01:13 Discharged to Home. Impression: Contusion of unspecified back wall of thorax. - Condition is Stable. - Discharge Instructions: Contusion, Back Pain in , Back Injury Prevention. - Medication Reconciliation Form, Thank You Letter, Antibiotic Education, Prescription Opioid Use form. - Follow up: Private Physician; When: Upon discharge from the Emergency Department; Reason: Recheck today's complaints, Continuance of care. - Problem is new. - Symptoms have improved. Signatures: Dispatcher [employer] EDMS Cherri Frederick, ESTER-C LUNCHROOM MONITOR-Csnw Ciara Solo RN RN ea Wadley, Terrence, MD MD tw4 Froylan Sepulveda RN RN rr5 Corrections: (The following items were deleted from the chart) 01:22 01:13 01/22/2019 01:13 Discharged to Home. Impression: Contusion of unspecified back rr5 wall of thorax. Condition is Stable. Forms are Medication Reconciliation Form, Thank You Letter, Antibiotic Education, Prescription Opioid Use. Follow up: Private Physician; When: Upon discharge from the Emergency Department; Reason: Recheck today's complaints, Continuance of care. Problem is new. Symptoms have improved. tw4
--- NOTE | 2019-01-22 01:14 | ER ---
Nurse's Notes [facility] Name: Enid Munguia Age: 23 yrs Sex: Female : 1995 Arrival Date: 01/22/2019 Time: 00:07 Bed 19 Private MD: Diagnosis: Contusion of unspecified back wall of thorax Presentation: 01/22 00:24 Presenting complaint: Presenting complaint: Patient states: Pt reports she slid on the ea porch and landed on her back at around 1900, denies hitting head or LOC. Pt reports her pain has gotten worse since then and reports numbness to right leg. 00:48 Transition of care: patient was not received from another setting of care. Onset of ea symptoms was January 22, 2019. Risk Assessment: Do you want to hurt yourself or someone else? Patient reports no desire to harm self or others. Initial Sepsis Screen: Does the patient meet any 2 criteria? No. Patient's initial sepsis screen is negative. Does the patient have a suspected source of infection? No. Patient's initial sepsis screen is negative. Care prior to arrival: None. 00:48 Method Of Arrival: Ambulatory ea 00:48 Acuity: DRERELL 3 ea Triage Assessment: 00:24 General: Appears uncomfortable, Behavior is appropriate for age. Pain: Complains of ea pain in low back area Pain radiates to right leg. Neuro: Level of Consciousness is awake, alert, obeys commands, Oriented to person, place, time, situation. Respiratory: Airway is patent Respiratory effort is even, unlabored, Respiratory pattern is regular, symmetrical. Derm: Skin is pink, warm \T\ dry. 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 - Social history:: Smoking status: Patient/guardian denies using tobacco. - Ebola Screening: : No symptoms or risks identified at this time. Screenin:49 Abuse screen: Denies threats or abuse. Denies injuries from another. Nutritional rr5 screening: No deficits noted. Tuberculosis screening: No symptoms or risk factors identified. Fall Risk Fall in past 12 months (25 points). Total Phillips Fall Scale indicates Low Risk Score (25-44 pts). Fall prevention measures have been instituted. Side Rails Up X 2 Frequent Obs/Assesments occuring Family Present and informed to notify staff if they need to leave bedside As available Patient and Family Educated on Fall Prevention Program and strategies. Assessment: 00:23 General: Appears in no apparent distress. uncomfortable, Behavior is calm, cooperative, rr5 appropriate for age. Pain: Complains of pain in back Pain does not radiate. Pain currently is 10 out of 10 on a pain scale. Quality of pain is described as aching, Pain began suddenly, Is intermittent. Neuro: Level of Consciousness is awake, alert, obeys commands, Oriented to person, place, time, situation, Appropriate for age Reports numbness in right leg. Cardiovascular: Capillary refill < 3 seconds Patient's skin is warm and dry. Respiratory: Airway is patent Respiratory effort is even, unlabored, Respiratory pattern is regular, symmetrical. GI: Abdomen is round. : Reports 11 weeks . EENT: No signs and/or symptoms were reported regarding the EENT system. Derm: Skin is intact, Skin temperature is warm. Musculoskeletal: Capillary refill < 3 seconds, Range of motion: intact in all extremities. 01:20 Reassessment: Patient appears in no apparent distress at this time. Patient is alert, rr5 oriented x 3, equal unlabored respirations, skin warm/dry/pink. discharge instruction given and explained without complaints made. Vital Signs: 00:24 BP 129 / 80; Pulse 106; Resp 18; Temp 98.1; Pulse Ox 99% on R/A; Weight 82.55 kg (R); ea Height 5 ft. (152.40 cm) (R); Pain 10/10; 01:20 BP 121 / 70; Pulse 99; Resp 17; Pulse Ox 99% ; rr5 00:24 Body Mass Index 35.54 (82.55 kg, 152.40 cm) ea ED Course: 00:07 Patient arrived in ED. am2 00:18 Froylan Sepulveda RN is Primary Nurse. rr5 00:25 Cordell Moya MD is Attending Physician. tw4 00:45 Patient has correct armband on for positive identification. Placed in gown. Bed in low rr5 position. Call light in reach. Side rails up X 1. Pulse ox on. NIBP on. 00:45 Head of bed elevated. rr5 00:50 Triage completed. vangie 00:50 Arm band placed on right wrist. Patient placed in an exam room, on a stretcher, on ea pulse oximetry. 01:21 No provider procedures requiring assistance completed. Patient did not have IV access rr5 during this emergency room visit. Administered Medications: 01:10 Drug: Tylenol 1000 mg Route: PO; rr5 01:23 Follow up: Response: Medication administered at discharge. rr5 Outcome: 01:13 Discharge ordered by . tw4 01:21 Discharged to home ambulatory, with family. rr5 01:21 Condition: stable 01:21 Discharge instructions given to patient, family, Instructed on discharge instructions, follow up and referral plans. Demonstrated understanding of instructions, follow-up care. 01:22 Patient left the ED. rr5 Signatures: Diana Perez am2 Ciara Solo RN RN Cordell Barnes MD MD tw4 Froylan Sepulveda, RN RN rr5 Corrections: (The following items were deleted from the chart) 00:50 00:24 Presenting complaint: ea vangie
[2019-01-22] MEDS ORDERED: ACETAMINOPHEN 500 MG TAB ONE (01:25)
[2019-01-22 01:38] LABS: Urine Blood NEGATIVE (NEG); Urine Glucose NEGATIVE (NEG); Urine Protein NEGATIVE (NEG); Urine Specific Gravity 1.025 (1.005-1.030)
[2019-01-22 02:49] LABS: Urine Culture Reflex Order NOT NEEDED
[2019-01-22 02:50] LABS: Urine Bacteria 20-50 /HPF (<20); Urine RBC NONE SEEN /HPF (NONE SEEN)
== END 2019-01-22 01:22 | disposition home or self-care (01) ==
LOC: ER 00:02
DX: S20.229A Contusion of unspecified back wall of thorax, initial encounter (principal); W01.0XXA Fall on same level from slipping, tripping and stumbling without subsequent striking against object, initial encounter; Y93.89 Activity, other specified; Y92.89 Other specified places as the place of occurrence of the external cause; Z3A.11 11 weeks gestation of pregnancy; F90.9 Attention-deficit hyperactivity disorder, unspecified type
CPT/HCPCS: 81003; 81015; 81025; 87086; 87088; 99283

== ENCOUNTER 2020-01-19 10:38 | Emergency (ER) | payer OTHER, SELFPAY ==
[2020-01-19 11:01] LABS: Absolute Lymphocytes (CBC) 2.5 K/uL (0.7-4.9); Basophils % 0.6 % (0-1.3); Hematocrit 36.7 % (36.0-45.0); Lymphocytes % 39.5 % (15.3-44.8); RBC Red Blood Cell Count 4.83 M/uL (3.86-4.86)
[2020-01-19] MEDS ORDERED: NA CHLORIDE 0.9% 1,000 ML ONE (11:06)
[2020-01-19 11:21] LABS: BUN Blood Urea Nitrogen 14 mg/dL (7-18); Bicarbonate 21 mmol/L (21-32); Creatine Phosphokinase 69 U/L (26-192); Glucose Level 117 mg/dL (74-106); Magnesium 2.1 mg/dL (1.8-2.4); Potassium 3.8 mmol/L (3.5-5.1); Sodium Level 141 mmol/L (136-145); Troponin (Emerg Dept Use Only) < 0.02 ng/mL (0.0-0.045)
--- NOTE | 2020-01-19 11:35 | RAD REPORT ---
EXAM DESCRIPTION: Indu Single View01/19/2020 11:28 am CLINICAL HISTORY: Palpitations COMPARISON: 2017 FINDINGS: The lungs appear clear of acute infiltrate. The heart is normal size IMPRESSION: No acute abnormalities displayed
--- NOTE | 2020-01-19 11:35 | RAD REPORT ---
EXAM DESCRIPTION: CT - Head Brain Wo Cont - 01/19/2020 11:19 am CLINICAL HISTORY: Syncope COMPARISON: 2017 TECHNIQUE: Computed axial tomography of the head was obtained. IV contrast was not requested. All CT scans are performed using dose optimization technique as appropriate and may include automated exposure control or mA/KV adjustment according to patient size. FINDINGS: An intracranial bleed is not seen . The ventricles are normal in caliber. No extra-axial fluid collection is noted. Fluid within the sinuses/ mastoids is not seen. IMPRESSION: No acute intracranial abnormality is seen. If patient's symptoms persist MRI of the bra in would be recommended.
--- NOTE | 2020-01-19 12:03 | EDPHYS ---
Physician Documentation [facility] Name: Enid Munguia Age: 24 yrs Sex: Female : 1995 Arrival Date: 01/19/2020 Time: 10:42 Bed 17 Private MD: ED Physician Abraham Short HPI: 01/19 11:05 This 24 yrs old Female presents to ER via Unassigned with complaints of rn Syncope. 11:05 The patient has experienced syncope. Onset: The symptoms/episode began/occurred just rn prior to arrival. Duration: This was a single episode. Associated injury: The patient did not suffer any apparent associated injury. Associated signs and symptoms: Pertinent positives: palpitations, shortness of breath. Current symptoms:. The patient has not experienced similar symptoms in the past. Reports passed out prior to arrival, reports felt lightheaded and remembers pushing elevator button, found sitting against wall, no sign of trauma. Reports felt fine prior to episode, no fever/vomiting/diarrhea/chest pain/cough. Denies pain currently. No famhx of early cardiac problems, denies cardiac problems/drug use/trauma. . Historical: - Allergies: 10:40 No Known Allergies; rb1 - Home Meds: 10:40 None [Active]; rb1 - PMHx: 10:40 Bipolar disorder; Ovarian cyst; rb1 - PSHx: 10:40 None; rb1 - Immunization history:: Adult Immunizations up to date. - Coronavirus screen:: The patient has NOT traveled to [place] in the past 14 days. The patient has NOT had contact with known/suspected case of Coronavirus?. - Family history:: not pertinent. - Social history:: Smoking status: Patient/guardian denies using. - Hospitalizations: : No recent hospitalization is reported. - Ebola Screening: : Patient negative for fever greater than or equal to 101.5 degrees Fahrenheit, and additional compatible Ebola Virus Disease symptoms. ROS: 11:05 Constitutional: Negative for fever, chills, and weight loss, Eyes: Negative for injury, rn pain, redness, and discharge, ENT: Negative for injury, pain, and discharge, Neck: Negative for injury, pain, and swelling, Cardiovascular: Negative for chest pain, palpitations, and edema, Respiratory: Negative for shortness of breath, cough, wheezing, and pleuritic chest pain, Abdomen/GI: Negative for abdominal pain, nausea, vomiting, diarrhea, and constipation, Back: Negative for injury and pain, : Negative for injury, bleeding, discharge, and swelling, MS/Extremity: Negative for injury and deformity, Skin: Negative for injury, rash, and discoloration, Neuro: Negative for headache, numbness, tingling, and seizure, + generalized weakness Exam: 11:05 Constitutional: This is a well developed, well nourished patient who is awake, alert, rn appears anxious Head/Face: Normocephalic, atraumatic. Eyes: Pupils equal round and reactive to light, extra-ocular motions intact. Lids and lashes normal. Conjunctiva and sclera are non-icteric and not injected. Cornea within normal limits. Periorbital areas with no swelling, redness, or edema. ENT: dry MM Neck: Trachea midline, no thyromegaly or masses palpated, and no cervical lymphadenopathy. Supple, full range of motion without nuchal rigidity, or vertebral point tenderness. No Meningismus. Cardiovascular: Tachycardic, regular, intact and equal distal pulses Respiratory: Mild tachypnea, no retractions, clear bilateral breath sounds. Abdomen/GI: soft, non-tender Skin: Warm, dry MS/ Extremity: Pulses equal, no cyanosis. Neurovascular intact. Full, normal range of motion. Equal circumference. Neuro: Awake and alert, GCS 15, oriented to person, place, time, and situation. Cranial nerves II-XII grossly intact. Motor strength 5/5 in all extremities. Sensory grossly intact. Cerebellar exam normal. 11:11 ECG was reviewed by the Attending Physician. rn Vital Signs: 10:40 BP 125 / 76; Pulse 105; Resp 19; Temp 98.0(O); Pulse Ox 98% on R/A; Weight 92.99 kg rb1 (R); Height 5 ft. 0 in. (152.40 cm) (R); Pain 0/10; 11:40 BP 123 / 72; Pulse 98; Resp 17; Pulse Ox 100% on R/A; rb1 10:40 Body Mass Index 40.04 (92.99 kg, 152.40 cm) rb1 MDM: 10:42 Patient medically screened. rn 11:59 Differential Diagnosis: cardiac arrhythmia, emotional response, idiopathic syncope, rn vasovagal episode, dehydration, , hypoglycemia. Data reviewed: vital signs, nurses notes, lab test result(s), EKG, radiologic studies, CT scan, plain films, and as a result, I will discharge patient. Counseling: I had a detailed discussion with the patient and/or guardian regarding: the historical points, exam findings, and any diagnostic results supporting the discharge/admit diagnosis, lab results, radiology results, the need for outpatient follow up, to return to the emergency department if symptoms worsen or persist or if there are any questions or concerns that arise at home. Response to treatment: the patient's symptoms have markedly improved after treatment, the patient's condition has returned to base line, the patient is now symptom free, and as a result, I will discharge patient. Special discussion: I discussed with the patient/guardian in detail that at this point there is no indication for admission to the hospital. It is understood, however, that if the symptoms persist or worsen the patient needs to return immediately for re-evaluation. Based on the history and exam findings, there is no indication for further emergent testing or inpatient evaluation. I discussed with the patient/guardian the need to see the primary care provider for further evaluation of the symptoms. ED course: Pt back to baseline, normal vitals, neg w/u, will dc home with rest and fluids, as well as return precautions. . 01/19 10:44 Order name: Basic Metabolic Panel; Complete Time: 11: 01/19 10:44 Order name: CBC with Diff; Complete Time: 11: 01/19 10:44 Order name: CPK; Complete Time: :01/19 10:44 Order name: Magnesium; Complete Time: :01/19 10:44 Order name: Troponin (emerg Dept Use Only); Complete Time: 11:01/19 10:44 Order name: D-Dimer; Complete Time: 11:01/19 10:44 Order name: CT Head Brain wo Cont; Complete Time: 11:01/19 10:44 Order name: EKG; Complete Time: 10:45 01/19 11:08 Order name: XRAY Chest (1 view); Complete Time: 11: 01/19 11:57 Order name: Urine Microscopic Only 3 01/19 11:57 Order name: Urine Culture [facility] 01/19 12:00 Order name: Urine Dipstick--Ancillary (enter results) ms 01/19 12:00 Order name: Urine --Ancillary (enter results) ms 01/19 10:44 Order name: Cardiac monitoring; Complete Time: 11:12 rn 01/19 10:44 Order name: EKG - Nurse/Tech; Complete Time: 11:12 rn 01/19 10:44 Order name: IV Saline Lock; Complete Time: 10:57 rn 01/19 10:44 Order name: Labs collected and sent; Complete Time: 10:57 rn 01/19 10:44 Order name: NPO; Complete Time: 10:57 rn 01/19 10:44 Order name: O2 Per Protocol; Complete Time: 10:57 rn 01/19 10:44 Order name: O2 Sat Monitoring; Complete Time: :57 rn 01/19 10:44 Order name: Urine Dipstick-Ancillary (obtain specimen); Complete Time: 12:23 rn 01/19 11:39 Order name: Urine Test (obtain specimen); Complete Time: 11:55 rn EC:11 Rate is 99 beats/min. Rhythm is regular. QRS [place] is Normal. MD interval is normal. QRS rn interval is normal. QT interval is normal. No Q waves. T waves are Normal. No ST changes noted. Clinical impression: NSR w/ Non-specific ST/T Changes. Interpreted by me. Reviewed by me. Administered Medications: 11:14 Drug: NS 0.9% 1000 ml Route: IV; Rate: 1000 ml; Site: right hand; rb1 12:15 Follow up: IV Status: Completed infusion rb1 Disposition: 01/19/20 12:01 Discharged to Home. Impression: Syncope and collapse. - Condition is Stable. - Discharge Instructions: Syncope. - Medication Reconciliation Form, Thank You Letter, Antibiotic Education, Prescription Opioid Use form. - Follow up: Private Physician; When: As needed; Reason: Recheck today's complaints, Re-evaluation by your physician. - Problem is new. - Symptoms have improved. Signatures: Dispatcher [employer] EDAbraham Mistry MD MD rn Barber, Rebecca RN RN rb1 Nayeli Salgado RN RN vc Corrections: (The following items were deleted from the chart) 12:20 12:01 01/19/2020 12:01 Discharged to Home. Impression: Syncope and collapse. Condition vc is Stable. Forms are Medication Reconciliation Form, Thank You Letter, Antibiotic Education, Prescription Opioid Use. Follow up: Private Physician; When: As needed; Reason: Recheck today's complaints, Re-evaluation by your physician. Problem is new. Symptoms have improved. rn
--- NOTE | 2020-01-19 12:03 | ER ---
Nurse's Notes [facility] Name: Enid Munguia Age: 24 yrs Sex: Female : 1995 Arrival Date: 01/19/2020 Time: 10:42 Bed 17 Private MD: Diagnosis: Syncope and collapse Presentation: 01/19 10:40 Presenting complaint: Patient states: Pt. has syncope episode in an elevator, witnessed rb1 by a bystander. Pt. was unresponsive for the bystander but was sitting up and responsive when EMS arrived. C/o dizziness. A \T\ O x 4, positive orthostatics, BS 126. EMS administered NS 500 ml bolus. Transition of care: patient was not received from another setting of care. Onset of symptoms was January 19, 2020. Risk Assessment: Do you want to hurt yourself or someone else? Patient reports no desire to harm self or others. 10:40 Method Of Arrival: EMS: [facility] rb1 10:40 Acuity: DERRELL 3 rb1 10:40 Initial Sepsis Screen: Does the patient meet any 2 criteria? No. Patient's initial rb1 sepsis screen is negative. Does the patient have a suspected source of infection? No. Patient's initial sepsis screen is negative. Care prior to arrival: None. Triage Assessment: 10:40 General: Appears in no apparent distress. comfortable, Behavior is calm, cooperative. rb1 Pain: Denies pain. Neuro: Level of Consciousness is awake, alert, obeys commands, Oriented to person, place, time, situation, Reports dizziness, a syncopal episode. Cardiovascular: Capillary refill < 3 seconds is brisk in bilateral fingers. Respiratory: Reports shortness of breath O2 saturation is currently 100% on RA Airway is patent Respiratory effort is even, unlabored, Respiratory pattern is regular, symmetrical. GI: No signs and/or symptoms were reported involving the gastrointestinal system. : No signs and/or symptoms were reported regarding the genitourinary system. Derm: Skin is pink, warm \T\ dry. Musculoskeletal: Range of motion: intact in all extremities. Historical: - Allergies: 10:40 No Known Allergies; rb1 - Home Meds: 10:40 None [Active]; rb1 - PMHx: 10:40 Bipolar disorder; Ovarian cyst; rb1 - PSHx: 10:40 None; rb1 - Immunization history:: Adult Immunizations up to date. - Coronavirus screen:: The patient has NOT traveled to [place] in the past 14 days. The patient has NOT had contact with known/suspected case of Coronavirus?. - Family history:: not pertinent. - Social history:: Smoking status: Patient/guardian denies using. - Hospitalizations: : No recent hospitalization is reported. - Ebola Screening: : Patient negative for fever greater than or equal to 101.5 degrees Fahrenheit, and additional compatible Ebola Virus Disease symptoms. Screenin:40 Abuse screen: Denies threats or abuse. Nutritional screening: No deficits noted. rb1 Tuberculosis screening: No symptoms or risk factors identified. Fall Risk Fall in past 12 months (25 points). No secondary diagnosis (0 pts). IV access (20 points). Ambulatory Aid- None/Bed Rest/Nurse Assist (0 pts). Gait- Normal/Bed Rest/Wheelchair (0 pts) Mental Status- Oriented to own ability (0 pts). Total Phillips Fall Scale indicates High Risk Score (45 or more points). Fall prevention measures have been instituted. Side Rails Up X 2 Placed Close to Nursing Station 1:1 Attendant Assigned Frequent Obs/Assessments Occuring As available patient and family educated on Fall Prevention Program and Strategies. Assessment: 10:40 General: See triage assessment. rb1 11:40 Reassessment: Patient appears in no apparent distress at this time. Patient and/or rb1 family updated on plan of care and expected duration. Pain level reassessed. Patient is alert, oriented x 3, equal unlabored respirations, skin warm/dry/pink. Family at the bedside. 12:19 Neuro: Level of Consciousness is awake, alert, obeys commands, Oriented to person, vc place, time, situation, Appropriate for age. Cardiovascular: Rhythm is regular. Vital Signs: 10:40 BP 125 / 76; Pulse 105; Resp 19; Temp 98.0(O); Pulse Ox 98% on R/A; Weight 92.99 kg rb1 (R); Height 5 ft. 0 in. (152.40 cm) (R); Pain 0/10; 11:40 BP 123 / 72; Pulse 98; Resp 17; Pulse Ox 100% on R/A; rb1 10:40 Body Mass Index 40.04 (92.99 kg, 152.40 cm) rb1 ED Course: 10:40 Arm band placed on right wrist. rb1 10:40 Patient has correct armband on for positive identification. Call light in reach. Side rb1 rails up X 1. adolescent counselor on. Pulse ox on. NIBP on. Warm blanket given. 10:42 Patient arrived in ED. rn 10:42 Abraham Short MD is Attending Physician. rn 10:50 Mai Orlando, RN is Primary Nurse. rb1 10:52 Initial lab(s) drawn, by ms, sent to lab. 3 11:08 EKG done, by ED staff, reviewed by Abraham Short MD. dh3 11:18 Triage completed. rb1 11:20 CT completed. Patient tolerated procedure well. Patient moved back from CT. mw3 11:23 CT Head Brain wo Cont In Process Unspecified. EDMS 11:32 XRAY Chest (1 view) In Process Unspecified. EDMS 12:18 No provider procedures requiring assistance completed. IV discontinued, intact, vc bleeding controlled, No redness/swelling at site. Pressure dressing applied. Administered Medications: 11:14 Drug: NS 0.9% 1000 ml Route: IV; Rate: 1000 ml; Site: right hand; rb1 12:15 Follow up: IV Status: Completed infusion rb1 Outcome: 12:01 Discharge ordered by . rn 12:19 Discharged to home vc 12:19 Condition: improved 12:19 Discharge instructions given to patient, Instructed on discharge instructions, follow up and referral plans. Demonstrated understanding of instructions, follow-up care. 12:20 Patient left the ED. vc Signatures: Dispatcher [employer] EDAbraham Mistry MD MD rn Barber, Rebecca, RN RN [facility] Pat Paul 3 Paty Acuna 3 Nayeli Salgado RN RN vc
[2020-01-19 12:14] LABS: Urine Blood NEGATIVE (NEG); Urine Glucose NEGATIVE (NEG); Urine Protein NEGATIVE (NEG); Urine Specific Gravity 1.025 (1.005-1.030)
[2020-01-19 12:15] LABS: Urine Bacteria >50 /HPF (<20); Urine RBC <5 /HPF (NONE SEEN)
[2020-01-19 12:16] LABS: Urine Culture Reflex Order NOT NEEDED
[2020-01-19 12:27] VITALS: BP 125/76; TEMP 98; O2SAT 98
--- NOTE | 2020-01-20 08:55 | EKG ---
Test Date: 2020-01-19 Test Time: 11:08:29 [place] Strip Inspector: MARY ANNE MEASUREMENT RESULTS: Intervals: Rate: 99 NC: 148 QRSD: 70 QT: 340 QTc: 436 [place]: P: 54 NC: 148 QRS: 86 T: 82 INTERPRETIVE STATEMENTS: Normal sinus rhythm Nonspecific ST and T wave abnormality Abnormal ECG Compared to ECG 04/15/2018 21:31:08 ST (T wave) deviation now present T-wave abnormality no longer present Possible ischemia no longer present Electronically Signed On 01-20-20 08:54:36 DIRECTOR ON AIR by Bacilio Colindres
== END 2020-01-19 12:20 | disposition home or self-care (01) ==
LOC: ER 10:38
DX: R55 Syncope and collapse (principal)
CPT/HCPCS: 36415; 70450; 71045; 80048; 81003; 81015; 81025; 82550; 83735; 84484; 85025; 85379; 87086; 87088; 93005; 96360; 99285; J7030

== ENCOUNTER 2021-02-05 11:35 | Emergency (ER) | payer SELFPAY ==
--- OUTSIDE RECORDS SUMMARY | 2021-02-05 11:37 | XMS REPORT | Continuity of Care Document ---
:1995 Author Organization [facility] t Address [address] [place] [address] Care Team Providers Name Role Phone Armen Jo Attending Clinician Problems This patient has no known problems. Allergies, Adverse Reactions, Alerts This patient has no known allergies or adverse reactions. Medications This patient has no known medications. Procedures This patient has no known procedures. Encounters Start End Encounter Admission Attending Care Care Encounter Source Date/Time Date/Time Type Type Clinicians Facility Department ID 2020-12-10 2020-12-10 Office SHILPI Sen [id number] 13:54:25 15:31:43 Visit Lea Ayers PSYCH RN [id number] [facility] [id number] MATERNAL [id number] & CHILD [address] [place] [address] Results This patient has no known results.
--- NOTE | 2021-02-05 12:37 | RAD REPORT ---
EXAM DESCRIPTION: CT - Head Brain Wo Cont - 02/05/2021 12:28 pm CLINICAL HISTORY: Numbness COMPARISON: 2019 TECHNIQUE: Computed axial tomography of the head was obtained. IV contrast was not requested. All CT scans are performed using dose optimization technique as appropriate and may include automated exposure control or mA/KV adjustment according to patient size. FINDINGS: An intracranial bleed is not seen . The ventricles are normal in caliber. No extra-axial fluid collection is noted. Mild to moderate low-density areas within periventricular, deep and subcortical white matter likely r epresent ischemic changes secondary to small vessel disease. Fluid within the sinuses/ mastoids is not seen. IMPRESSION: No acute intracranial abnormality is seen. If patient's symptoms persist MRI of the bra in would be recommended.
[2021-02-05] MEDS ORDERED: NA CHLORIDE 0.9% 0 ML ONE (16:06)
[2021-02-05] MEDS ORDERED: NA CHLORIDE 0.9% 1,000 ML ONE (16:20)
[2021-02-05 16:59] LABS: Potassium 4.2 mmol/L (3.5-5.1)
--- NOTE | 2021-02-05 17:08 | EDPHYS ---
Physician Documentation [facility] Name: Enid Munguia Age: 25 yrs Sex: Female : 1995 Arrival Date: 02/05/2021 Time: 11:39 Bed 8 Private MD: ED Physician Cordell Moya HPI: 02/05 15:25 This 25 yrs old Female presents to ER via Ambulatory with complaints of jmm Numbness Of Hand, Numbness Of Arm, Headache. 15:25 Onset: The symptoms/episode began/occurred gradually, 3 week(s) ago. Modifying factors: jmm The symptoms are alleviated by nothing, the symptoms are aggravated by nothing. Associated signs and symptoms: Pertinent negatives: fever. This is a 25 year old female with a history of ADD/ADHD, bipolar disorder that presents to the ED with complaints of tingling to the left hand and left foot. Patient states also having similar sensations in the right and left knee as well as the right hand and foot. Denies weakness. . 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 - Social history:: Smoking status: Patient denies any tobacco usage or history of. ROS: 15:25 Constitutional: Negative for fever, chills, and weight loss, Cardiovascular: Negative jmm for chest pain, palpitations, and edema, Respiratory: Negative for shortness of breath, cough, wheezing, and pleuritic chest pain. 15:25 Neuro: Positive for tingling. 15:25 All other systems are negative. Exam: 15:25 Constitutional: This is a well developed, well nourished patient who is awake, alert, jmm and in no acute distress. Head/Face: atraumatic. Eyes: EOMI, no conjunctival erythema appreciated ENT: Moist Mucus Membranes Neck: Trachea midline, Supple Chest/axilla: Normal chest wall appearance and motion. Cardiovascular: Regular rate and rhythm. No edema appreciated Respiratory: Normal respirations, no respiratory distress appreciated Abdomen/GI: Non distended, soft Back: Normal ROM Skin: General appearance color normal MS/ Extremity: Moves all extremities, no obvious deformities appreciated, no edema noted to the lower extremities Neuro: Awake and alert, normal gait Psych: Behavior is normal, Mood is normal, Patient is cooperative and pleasant 15:25 Neuro: Orientation: is normal, Mentation: is normal, Memory: is normal, Motor: is normal, Gait: is steady. 15:25 Psych: Behavior/mood is pleasant, cooperative. Vital Signs: 12:11 BP 130 / 88; Pulse 91; Resp 18 S; Temp 98.0(O); Pulse Ox 100% on R/A; Weight 103.87 kg aa5 (R); Height 5 ft. 0 in. (152.40 cm) (R); Pain 7/10; 15:30 BP 132 / 82; Pulse 88; Resp 16; Pulse Ox 99% on R/A; hb 18:20 BP 127 / 86; Pulse 79; Resp 18; Temp 97.5; Pulse Ox 99% on R/A; ph 12:11 Body Mass Index 44.72 (103.87 kg, 152.40 cm) aa5 MDM: 15:20 [facility] screened. [facility] 17:03 Data reviewed: vital signs, nurses notes. Counseling: I had a detailed discussion with panchito the patient and/or guardian regarding: the historical points, exam findings, and any diagnostic results supporting the discharge/admit diagnosis, lab results, the need for outpatient follow up, to return to the emergency department if symptoms worsen or persist or if there are any questions or concerns that arise at home. ED course: Patient is alert and non toxic in appearance in the ED. I do not suspect CVA. Differential would include, peripheral neuropathy, DM, MS. Advised to follow up with pcp to address hyperglycemia and neuro due to paresthesias. . 02/05 15:41 Order name: Glucose, Ancillary Testing; Complete Time: 15:42 EDMS 02/05 15:43 Order name: BMP; Complete Time: 17:03 [facility] 02/05 12:17 Order name: CT Head Brain wo Cont; Complete Time: 15:11 aa5 02/05 15:21 Order name: Fingerstick Glucose; Complete Time: 15:35 [facility] 02/05 15:43 Order name: Saline Lock; Complete Time: 16:29 [facility] Administered Medications: 15:51 Drug: NS 0.9% 1000 ml Route: IV; Rate: 1 bolus; Site: right antecubital; hb 18:20 Follow up: Response: No adverse reaction; IV Intake: 1000ml ph 18:21 Follow up: IV Status: Completed infusion ph Disposition: 18:52 Co-signature as Attending Physician, Cordell Moya MD I agree with the assessment and tw4 plan of care. Disposition: 02/05/21 17:07 Discharged to Home. Impression: Paresthesia of skin, Hyperglycemia, unspecified. - Condition is Stable. - Discharge Instructions: Hyperglycemia, Paresthesia, Peripheral Neuropathy. - Medication Reconciliation Form, Thank You Letter, Antibiotic Education, Prescription Opioid Use form. - Follow up: Private Physician; When: 2 - 3 days; Reason: Recheck today's complaints, Continuance of care, Re-evaluation by your physician. Follow up: Mike Ace MD; When: 2 - 3 days; Reason: Recheck today's complaints, Continuance of care, Re-evaluation by your physician. Signatures: Dispatcher [employer] EDMS Salomón Pena PA PA jmm Calderon, Audri, RN RN aa5 Mallika Vallejo RN RN Carolina Murray RN RN hb Wadley, Terrence, MD MD tw4 Corrections: (The following items were deleted from the chart) 18:21 17:07 02/05/2021 17:07 Discharged to Home. Impression: Paresthesia of skin; ph Hyperglycemia, unspecified. Condition is Stable. Forms are Medication Reconciliation Form, Thank You Letter, Antibiotic Education, Prescription Opioid Use. Follow up: Private Physician; When: 2 - 3 days; Reason: Recheck today's complaints, Continuance of care, Re-evaluation by your physician. Follow up: Mike Ace; When: 2 - 3 days; Reason: Recheck today's complaints, Continuance of care, Re-evaluation by your physician. panchito
--- NOTE | 2021-02-05 17:08 | ER ---
Nurse's Notes [facility] Name: Enid Munguia Age: 25 yrs Sex: Female : 1995 Arrival Date: 02/05/2021 Time: 11:39 Bed 8 Private MD: Diagnosis: Paresthesia of skin;Hyperglycemia, unspecified Presentation: 02/05 12:10 Chief complaint: Patient states: headache, dizziness, and numbness that comes and goes aa5 to yoanna hands and feet that began approximately 3 weeks ago. Pt states "I went to see my doctor and they told me to come here to get a CT scan". Coronavirus screen: At this time, the client does not indicate any symptoms associated with coronavirus-19. Ebola Screen: No symptoms or risks identified at this time. Initial Sepsis Screen: Does the patient meet any 2 criteria? No. Patient's initial sepsis screen is negative. Does the patient have a suspected source of infection? No. Patient's initial sepsis screen is negative. Risk Assessment: Do you want to hurt yourself or someone else? Patient reports no desire to harm self or others. Onset of symptoms was January 2021. 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 - Social history:: Smoking status: Patient denies any tobacco usage or history of. Screenin:30 Abuse screen: Denies threats or abuse. Denies injuries from another. Nutritional hb screening: No deficits noted. Tuberculosis screening: No symptoms or risk factors identified. Fall Risk None identified. Assessment: 15:45 General: Appears in no apparent distress. Behavior is calm, cooperative. hb 15:45 Pain: Pain currently is 3 out of 10 on a pain scale. Neuro: Level of Consciousness is hb awake, alert, obeys commands, Oriented to person, place, time, situation. Cardiovascular: Capillary refill < 3 seconds Patient's skin is warm and dry. Respiratory: Respiratory effort is even, unlabored, Respiratory pattern is regular, symmetrical. GI: No signs and/or symptoms were reported involving the gastrointestinal system. : No signs and/or symptoms were reported regarding the genitourinary system. EENT: No signs and/or symptoms were reported regarding the EENT system. Derm: Skin is pink, warm \\T\\ dry. Musculoskeletal: Reports generalized weakness and paresthesia in all extremities. 16:32 Reassessment: Patient appears in no apparent distress at this time. Patient and/or hb family updated on plan of care and expected duration. Pain level reassessed. Patient is alert, oriented x 3, equal unlabored respirations, skin warm/dry/pink. 17:45 Reassessment: Patient appears in no apparent distress at this time. Patient and/or ph family updated on plan of care and expected duration. Pain level reassessed. Patient is alert, oriented x 3, equal unlabored respirations, skin warm/dry/pink. D/C pending completion of IV fluids. Vital Signs: 12:11 BP 130 / 88; Pulse 91; Resp 18 S; Temp 98.0(O); Pulse Ox 100% on R/A; Weight 103.87 kg aa5 (R); Height 5 ft. 0 in. (152.40 cm) (R); Pain 7/10; 15:30 BP 132 / 82; Pulse 88; Resp 16; Pulse Ox 99% on R/A; hb 18:20 BP 127 / 86; Pulse 79; Resp 18; Temp 97.5; Pulse Ox 99% on R/A; ph 12:11 Body Mass Index 44.72 (103.87 kg, 152.40 cm) aa5 ED Course: 11:39 Patient arrived in ED. mr 12:10 Arm band placed on. aa5 12:11 Triage completed. aa5 12:26 CT Head Brain wo Cont In Process Unspecified. EDMS 15:07 Salomón Pena PA is PHCP. jmm 15:07 Cordell Moya MD is Attending Physician. jmm 15:30 Patient has correct armband on for positive identification. Bed in low position. Call hb light in reach. 15:47 Carolina Murray, CASSIDY is Primary Nurse. hb 15:50 Inserted saline lock: 20 gauge in right antecubital area, using aseptic technique. hb Blood collected. 17:05 Mike Ace MD is Referral Physician. [facility] 18:20 No provider procedures requiring assistance completed. IV discontinued, intact, ph bleeding controlled, No redness/swelling at site. Pressure dressing applied. Administered Medications: 15:51 Drug: NS 0.9% 1000 ml Route: IV; Rate: 1 bolus; Site: right antecubital; hb 18:20 Follow up: Response: No adverse reaction; IV Intake: 1000ml ph 18:21 Follow up: IV Status: Completed infusion ph Intake: 18:20 IV: 1000ml; Total: 1000ml. ph Outcome: 17:07 Discharge ordered by . [facility] 18:21 Discharged to home ambulatory. ph 18:21 Condition: good 18:21 Discharge instructions given to patient, Instructed on discharge instructions, follow up and referral plans. Demonstrated understanding of instructions, follow-up care. 18:21 Patient left the ED. ph Signatures: Dispatcher [employer] EDMS Salomón Pena PA PA [facility] Delilah Alcaraz mr MayMary tiwari, RN RN aa5 Mallika Vallejo RN RN Carolina Murray, CASSIDY RN hb
[2021-02-05 18:34] VITALS: O2SAT 99
[2021-02-05 18:35] VITALS: BP 127/86; TEMP 97.5
== END 2021-02-05 18:21 | disposition home or self-care (01) ==
LOC: ER 11:35
DX: R20.2 Paresthesia of skin (principal); R73.9 Hyperglycemia, unspecified; R51.9 Headache, unspecified; F90.9 Attention-deficit hyperactivity disorder, unspecified type; F31.9 Bipolar disorder, unspecified
CPT/HCPCS: 36415; 70450; 80048; 82947; 96360; 96361; 99284; J7030

== ENCOUNTER 2022-01-17 14:31 | Emergency (ER) | payer SELFPAY ==
--- OUTSIDE RECORDS SUMMARY | 2022-01-17 14:37 | XMS REPORT | Continuity of Care Document ---
:1995 Author Organization [facility] t Address [address] [place] [address] Care Team Providers Name Role Phone Armen SEN Attending Clinician Unavailable Visit, Nurse Attending Clinician Unavailable Mckinley FENG C Attending Clinician Мария WU Attending Clinician Unavailable Bryce NORMAN R Attending Clinician Doctor Unassigned, Name Attending Clinician Unavailable Ted GUZMAN Attending Clinician 3, [facility] Room Attending Clinician Unavailable Daiana Navarrete MD Attending Clinician Denis Cormier Attending Clinician Jameel BENJAMIN Attending Clinician Unavailable Ted GUZMAN Admitting Clinician Payers Payer Name Policy Type Policy Number Effective Date Expiration Date S alison [id number] 2019 00:00:00 Advance Directives Directive Decision Effective Termination Comments Source Date Date Healthcare Agents on N/A [facility] FileNameRelationshipHealthcare [facility] Agent Medical RelationshipCommunicationCole Branch HeinSignificant OtherHealth Care [phone] (Mobile) Maggie WebbRelativeFirst Alternate Health Care [phone] (Mobile) Jl Isbell Alternate Health Care [phone] (Mobile) Problems Condition Condition Condition Status Onset Resolution Last Treating Co mments Source Name Details Category Date Date Treatment Clinician Date Contracept Contracept Disease Active U nivers susan susan 1-14 [place] management [place] 00 [place] BMI BMI Disease Active 2019-11 Univers 40.0-44.9, 40.0-44.9, 0-21 it y of adult adult 00:00: [place] 00 Medical Branch Class 3 Class 3 Disease Active 2019-11 Univers severe severe 0-21 ity of obesity obesity 00:00: [place] with body with body 00 Medi gonzalo mass index mass index Br anch (BMI) of (BMI) of 40.0 to 40.0 to 44.9 in 44.9 in adult, adult, unspecifie unspecifie d obesity d obesity type, type, unspecifie unspecifie d whether d whether serious serious comorbidit comorbidit y present y present 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 0-21 ity of simplex, simplex, 00:00: [place] unspecifie unspecifie 00 Me dical d site d site Branch Bipolar 1 Bipolar 1 Disease Active 2019-11 Uni vers disorder disorder 0-21 ity of 00:00: [place] 00 Medical Branch Breast Breast Disease Active 2019-11 Univers pain pain 0-21 ity of 00:00: [place] 00 Medical Branch Screen for Screen for Disease Active 2018-11 U nivers STD STD 0-22 ity of (sexually (sexually 00:[place] transmitte transmitte 00 Me dical d disease) d disease) Br anch Anemia of Anemia of Disease Active Uni vers mother in mother in 8-20 ity of , , [place] antepartum antepartum 00 Me dical Branch Gestationa Gestationa Disease Active Overview : Univers l diabetes l diabetes 2-06 Failed it y of mellitus, mellitus, 00:00: 3hr gtt [place] antepartum antepartum 00 A1c 5.2 M edical Branch Multiparit Multiparit Disease Active U nivers y y 2-05 ity of 00:00: [place] 00 Medical Branch Supervisio Supervisio Disease Active U nivers n of n of 2-05 ity of high-risk high-risk [place] [facility] Obesity Obesity Disease Active 2019-0 Univers affecting affecting 1-10 [place] of 00:[place] in first in first 00 Medica l trimester trimester Bran ch History of History of Disease Active 2019-0 U nivers gestationa gestationa 1-10 it y of l diabetes l diabetes 00[place]00: [place] in prior in prior 00 Medica l , , Br anch currently currently in first in first trimester trimester Genital Genital Disease Active 2019-0 Univers herpes herpes 1-10 it[place] of affecting affecting 00:[place] 00 [facility] [place] first in first Branch trimester trimester Depression Depression Disease Active 2019-0 U nivers affecting affecting 1-10 it[place] of [place] in first in first 00 Medica l trimester, trimester, Br anch antepartum antepartum Obesity Obesity Disease Active 2019-0 Univers (BMI (BMI 1-10 ity of 30-39.9) 30-39.9) 00:00: [place] [address] Medical Branch History of History of Disease Active 2019-0 U nivers gestationa gestationa 1-10 it y of l diabetes l diabetes 00:00: [place] in prior in prior 00 Medica l , , Br anch currently currently in first in first trimester trimester History of History of Disease Active 2019-0 U nivers herpes herpes 1-10 ity of genitalis genitalis [place] History of History of Disease Active 2019-0 U nivers depression depression 1-10 it y of 00:00: [place] [address] Medical Branch Anemia, Anemia, Disease Active 2017-0 Univers 5-04 it y of 00:00: [place] [address] Medical Branch Anemia, Anemia, Disease Active 2017-0 Univers 5-04 it y of 00:00: [address] Branch Disease Active 2017-0 Univers (spontaneo (spontaneo 3-24 it y of us vaginal us vaginal 00:00: [place] delivery) delivery) [address] [place] [address] Single Single Disease Active 2017-0 Univers live live 3-24 it y of 00:00: [address] 39 weeks 39 weeks Disease Active 2017-0 Unive rs gestation gestation 3-22 ity of of of 00:00: [place] 00 [facility] Allergies, Adverse Reactions, Alerts Allergy Allergy Status Severity Reaction(s) Onset Inactive Treating Comm ents Source Name Type Date Date Clinician NO KNOWN Drug Active Univers ALLERGIE Class ity of S [facility] Social History Social Habit Start Date Stop Date Quantity Comments Source ASSERTION 2018-11-18 [facility] 00:00:00 [facility] Exposure to Not sure [facility]-CoV-2 [facility] (event) Branch Alcohol intake 2020-12-10 2020-12-10 Current [facility] 00:00:00 00:00:00 non-drinker of [facility] alcohol [place] (finding) Tobacco use and 2020-12-10 2020-12-10 Never used Universit y of exposure 00:00:00 00:00:00 [facility] Sex Assigned At [birth year] Universit y of 00:00:00 00:00:00 [facility] Smoking Status Start Date Stop Date Source Never smoker [facility] Medications Ordered Filled Start Stop Current Ordering Indication Dosage Frequency Signature Comments Components Source Medication Medication Date Date Medication? Clinician (SIG) Name Name medroxyPROG 2020-2020- No [id number] 150mg Univers ESTERone 12-10 ity of (DEPO-PROVE 21:30: 20:29 [place] RA) 00 :00 Medical injection Branch 150 mg medroxyPROG 2020-2020- No [id number] 150mg 150 mg, Univers ESTERone 12-10 Intramuscu ity of (DEPO-PROVE 21:30: 20:29 [facility], [place] RA) 00 :00 [id number], Medical injection 3 doses, Branch 150 mg First dose on [place] 12/10/20 at 1530, Last dose on [place] 05/27/21 at 1530, Routine medroxyPROG 2020-0 2020- No [id number] 150mg Univers ESTERone 12-10 ity of (DEPO-PROVE 21:30: 20:29 [place] RA) 00 :00 Medical injection Branch 150 mg medroxyPROG 2020-0 2020- No [id number] 150mg 150 mg, Univers ESTERone 12-10 Intramuscu ity of (DEPO-PROVE 21:30: 20:29 [facility], [place] RA) 00 :00 [id number], Medical injection 3 doses, Branch 150 mg First dose on [place] 12/10/20 at 1530, Last dose on [place] 05/27/21 at 1530, Routine medroxyPROG 202-0 2020- No [id number] 150mg Univers ESTERone 12-10 ity of (DEPO-PROVE 21:30: 20:29 [place] RA) 00 :00 Medical injection Branch 150 mg medroxyPROG 2020-0 2020- No [id number] 150mg 150 mg, Univers ESTERone 12-10 Intramuscu ity of (DEPO-PROVE 21:30: 20:29 [facility], [place] RA) 00 :00 [id number], Medical injection 3 doses, Branch 150 mg First dose on [place] 12/10/20 at 1530, Last dose on [place] 05/27/21 at 1530, Routine medroxyPROG 2020-0 2020- No [id number] 150mg Univers ESTERone 12-10 ity of (DEPO-PROVE 21:30: 20:29 [place] RA) 00 :00 Medical injection Branch 150 mg medroxyPROG 2020-0 2020- No [id number] 150mg 150 mg, Univers ESTERone 12-10 Intramuscu ity of (DEPO-PROVE 21:30: 20:29 [facility], [place] RA) 00 :00 [id number], Medical injection 3 doses, Branch 150 mg First dose on [place] 12/10/20 at 1530, Last dose on [place] 05/27/21 at 1530, Routine quetiapine 2019-11 Yes Take by Uni vers fumarate 0-21 mouth. ity of (SEROQUEL 19:44: [place] ORAL) 44 Medical Branch quetiapine 2019-11 Yes Take by Uni vers fumarate 0-21 mouth. ity of (SEROQUEL 19:44: [place] ORAL) 44 Medical Branch quetiapine 2019-11 Yes Take by Uni vers fumarate 0-21 mouth. ity of (SEROQUEL 19:44: [place] ORAL) 44 Medical Branch quetiapine 2019-11 Yes Take by Uni vers fumarate 0-21 mouth. ity of (SEROQUEL 19:44: [place] ORAL) 44 Medical Branch quetiapine 2019-11 Yes Take by Uni vers fumarate 0-21 mouth. ity of (SEROQUEL 19:44: [place] ORAL) 44 Medical Branch quetiapine 2019-11 Yes Take by Uni vers fumarate 0-21 mouth. ity of (SEROQUEL 19:44: [place] ORAL) 44 Medical Branch medroxyPROG 2018-11 2020- No [id number] 150mg Univers ESTERone 12-0114 ity of (DEPO-PROVE 22:00: 20:59 [place] RA) 00 :00 Medical injection Branch 150 mg medroxyPROG 2018-11- No [id number] 150mg 150 mg, Univers ESTERone 12-01 Intramuscu ity of (DEPO-PROVE 22:00: 20:59 [place], [place] RA) 00 :00 [id number], Medical injection 3 doses, Branch 150 mg First dose on Mon10/01/19 at 1600, Last dose on Mon03/17/20 at 1600, Routine quetiapine 2018-11 Yes Take by Uni vers fumarate 0-22 mouth. ity of (SEROQUEL 13:36: [place] ORAL) 24 Medical Branch quetiapine 2018-11 Yes Take by Uni vers fumarate 0-22 mouth. ity of (SEROQUEL 13:36: [place] ORAL) 24 Medical Branch buPROPion Yes 150mg 150 mg, Univ ers SR 9-10 Oral, ity of (WELLBUTRIN 14:00: DAILY, [place] SR) tablet 00 First dose Med ical 150 mg on Mon Branch 08/06/19 at 0900, Until Discontinu ed, Routine buPROPion Yes [id number] 150mg Take 1 Univers SR 9-10 tablet by ity of (WELLBUTRIN 00:00: mouth [place] SR) 150 mg 00 daily. Medical SR tablet Branch ibuprofen Yes [id number] 600mg Take 1 U nivers 600 mg 9-10 tablet by ity of tablet 00:00: mouth [place] 00 every 6 Medical (six) Branch hours as needed for Pain (scale 1-3) or Pain (scale 4-6) (Pain). Take with food or milk. docusate 2018- Yes [id number] 240mg Take 1 U nivers calcium 240 9-10 capsule by it y of mg capsule 00:00: mouth once [place] 00 daily as Medical needed for Branch Constipati on. Iron Fum & 2019- Yes [id number] 1{capsu Take 1 Univers P-FA-Vit B 9-10 le} capsule by ity of & C No.9 00:00: mouth [place] (INTEGRA 00 daily. Medical PLUS) 125 Branch mg iron- 1 mg Cap buPROPion Yes [id number] 150mg Take 1 Univers SR 9-10 tablet by ity of (WELLBUTRIN 00:00: mouth [place] SR) 150 mg 00 daily. Medical SR tablet Branch ibuprofen Yes [id number] 600mg Take 1 U nivers 600 mg 9-10 tablet by ity of tablet 00:00: mouth [place] 00 every 6 Medical (six) Branch hours as needed for Pain (scale 1-3) or Pain (scale 4-6) (Pain). Take with food or milk. docusate Yes [id number] 240mg Take 1 U nivers calcium 240 9-10 capsule by it y of mg capsule 00:00: mouth once [place] 00 daily as Medical needed for Branch Constipati on. Iron Fum & Yes [id number] 1{capsu Take 1 Univers P-FA-Vit B 9-10 le} capsule by ity of & C No.9 00:00: mouth [place] (INTEGRA 00 daily. Medical PLUS) 125 Branch mg iron- 1 mg Cap buPROPion Yes [id number] 150mg Take 1 Univers SR 9-10 tablet by ity of (WELLBUTRIN 00:00: mouth [place] SR) 150 mg 00 daily. Medical SR tablet Branch ibuprofen Yes [id number] 600mg Take 1 U nivers 600 mg 9-10 tablet by ity of tablet 00:00: mouth [place] 00 every 6 Medical (six) Branch hours as needed for Pain (scale 1-3) or Pain (scale 4-6) (Pain). Take with food or milk. docusate Yes [id number] 240mg Take 1 U nivers calcium 240 9-10 capsule by it y of mg capsule 00:00: mouth once [place] 00 daily as Medical needed for Branch Constipati on. Iron Fum & Yes [id number] 1{capsu Take 1 Univers P-FA-Vit B 9-10 le} capsule by ity of & C No.9 00:00: mouth [place] (INTEGRA 00 daily. Medical PLUS) 125 Branch mg iron- 1 mg Cap buPROPion 2019- No [id number] 150mg Take 1 Univers SR 9-10 10-21 tablet by ity of (WELLBUTRIN 00:00: 00:00 [place] SR) 150 mg 00 :00 daily. Medical SR tablet Branch ibuprofen 2019- No [id number] 600mg Take 1 Univers 600 mg 9-10 10-21 tablet by ity of tablet 00:00: 00:00 mouth [place] 00 :00 every 6 Medical (six) Branch hours as needed for Pain (scale 1-3) or Pain (scale 4-6) (Pain). Take with food or milk. docusate 2019- No [id number] 240mg Take 1 Univers calcium 240 9-10 10-21 capsule by i ty of mg capsule 00:00: 00:00 mouth once [place] 00 :00 daily as Medical needed for Branch Constipati on. Iron Fum & 2019- No [id number] 1{capsu Take 1 Univers P-FA-Vit B -10 10- le} capsule by it y of & C No.9 00:00: 00:00 mouth [place] (INTEGRA 00 :00 daily. Medical PLUS) 125 Branch mg iron- 1 mg Cap buPROPion 2019- No [id number] 150mg Take 1 Univers SR 9-10 10-21 tablet by ity of (WELLBUTRIN 00:00: 00:00 [place] SR) 150 mg 00 :00 daily. Medical SR tablet Branch ibuprofen 2019- No [id number] 600mg Take 1 Univers 600 mg 9-10 10-21 tablet by ity of tablet 00:00: 00:00 mouth [place] 00 :00 every 6 Medical (six) Branch hours as needed for Pain (scale 1-3) or Pain (scale 4-6) (Pain). Take with food or milk. docusate 2019- No [id number] 240mg Take 1 Univers calcium 240 9-10 10-21 capsule by i ty of mg capsule 00:00: 00:00 mouth once [place] 00 :00 daily as Medical needed for Branch Constipati on. Iron Fum & 2019- No [id number] 1{capsu Take 1 Univers P-FA-Vit B 9-10 10-21 le} capsule by it y of & C No.9 00:00: 00:00 mouth [place] (INTEGRA 00 :00 daily. Medical PLUS) 125 Branch mg iron- 1 mg Cap rho(D) 2019-0 Yes 300ug 300 mcg, Univer s immune 08-05 Intramuscu ity of globulin 22:27: lar, ONCE, [place] as (RHOGAM) 32 For 1 Medical syringe 300 dose, Branch mcg Conditiona l, Routine acetaminoph 2019-0 Yes 650mg 650 mg, Un becca en 08-05 Oral, ity of (TYLENOL) 22:27: Q6HPRN, [place] tablet 650 28 Starting Medic al mg 08/05/19 Branch at 1727, Until Discontinu ed, Routine, Pain (scale 1-3) ibuprofen 2019-0 Yes 600mg 600 mg, Univ ers (IBU) 08-05 Oral, ity of tablet 600 22:27: Q6HPRN, [place] mg 28 Starting Medical 08/05/19 Branch at 1727, Until Discontinu ed, Routine, Pain (scale 4-6) diphenhydrA 2019-0 Yes 25mg 25 mg, Univ ers MINE 08-05 Oral, ity of (BENADRYL) 22:27: Q6HPRN, [place] tablet 25 28 Starting Medica l mg 08/05/19 Branch at 1727, Until Discontinu ed, Routine, Sleep, Itching ondansetron 2019-0 Yes 4mg 4 mg, Slow Univers (ZOFRAN 08-05 IV Push, ity of (PF)) 22:27: Q8HPRN, [place] injection 4 28 Starting Medi gonzalo mg 08/05/19 Branch at 1727, Until Discontinu ed, Routine, Nausea and Vomiting (N/V) simethicone 2019-0 Yes 160mg 160 mg, Un becca (GAS 08-05 Oral, ity of RELIEF) 22:27: PC+HSPRN, [place] chewable 28 Starting Medical tablet 160 08/05/19 Bra nch mg at 1727, Until Discontinu ed, Routine, Gas docusate 2019-0 Yes 240mg 240 mg, Unive rs calcium 08-05 Oral, ity of (SURFAK) 22:27: QDAILYPRN, [place] as capsule 240 28 Starting Medi gonzalo mg 08/05/19 Branch at 1727, Until Discontinu ed, Routine, Constipati on magnesium Yes 30mL 30 mL, Univer s hydroxide 08-05 Oral, ity of (MILK OF 22:27: QDAILYPRN, [place] MAGNESIA) 28 Starting Medica l 400 mg/5 mL Mon08/05/19 Br anch suspension at 1727, 30 mL Until Discontinu ed, Routine, Constipati on benzocaine- Yes Topical, Un [place]cca menthol 08-05 PRN, ity of (DERMOPLAST 22:27: Starting [place] ) 20-0.5 % 28 Mon08/05/19 Med ical topical at 1727, Branch spray Until Discontinu ed, Routine, Perineum discomfort oxytocin 2019- No 40mU/mi 40 Unive rs (PITOCIN) 08-05 n ida-unit ity of 40 Units in 21:45: 16:15 s/min (60 [place] lactated 00 :00 mL/hr), at Medic al ringers 60 mL/hr, Branch 1,000 mL IV IV infusion Infusion, ONCE, 1 dose, [facility] 08/05/19 at 1645 LR 1000 mL 2019- No at 999 Univ ers + oxytocin 08-05 mL/hr, IV ity of 20 units IV 16:45: 22:03 Infusion, [place] Solution 00 :00 ONCE, 1 Medical dose, [facility] Branch 08/05/19 at 1145, Routine lactated 2019- No 500mL at 999 Unive rs ringers IV 08-05 mL/hr, 500 it y of infusion 12:15: 13:29 mL, IV [place] 500 mL 00 :00 Infusion, Medical ONCE, 1 Branch dose, [facility] 08/05/19 at 0715, Routine proMETHazin 2019- No 12.5mg 12.5 mg, Univers e 08-05 IV ity of (PHENERGAN) 11:30: 11:35 Piggyback, [place] 12.5 mg in 00 :00 ONCE NOW, Medi gonzalo NaCl 0.9% 1 dose, Branch (NS) 50 mL [facility] 08/05/19 IV at 0630, piggyback Routine nalbuphine 2019- No 10mg 10 mg, Univ ers (NUBAIN) 9-09 09-09 Intravenou ity of injection 11:30: 10:46 s, ONCE, 1 [place] 10 mg 00 :00 dose, [facility] Medical 08/05/19 at Branch 0630, Routine sodium 2019- No 30mL 30 mL, Univers citrate-cit 08-05 Oral, ity of mealnie acid 11:12: 13:38 PRE-PROCED [place] (BICITRA) 18 :00 URE ONCE, Medic al 500-334 1 dose, Branch mg/5 mL Starting solution 30 Mon 08/05/19 mL at 0612, Until 08/05/19 at 0838, Routine, Surgery/Pr ocedure proMETHazin 2019- No 12.5mg 12.5 mg, Univers e 08-05 IV ity of (PHENERGAN) 05:00: 05:03 Piggyback, [place] 12.5 mg in 00 :00 ONCE NOW, [facility] gonzalo NaCl 0.9% 1 dose, Branch (NS) 50 mL [facility] 08/05/19 IV at 0000, piggyback Routine nalbuphine 2018- No 10mg 10 mg, Univ ers (NUBAIN) 08-05 Intravenou ity of injection 05:00: 04:32 s, ONCE, 1 [place] 10 mg 00 :00 dose, [facility] 08/05/19 at Branch 0000, Routine D5W-LR IV 2019- No 1000mL at 125 Uni vers infusion 08-05 mL/hr, IV ity o f 1,000 mL 02:00: 22:27 Infusion, [place] as 00 :32 CONTINUOUS Medical , Starting [facility] 08/04/19 at 2100, Until [facility] 08/05/19 at 1727, Routine LR 1000 mL 2019- No 2mU/min 2 Uni vers + oxytocin 08-05 ida-unit it y of 20 units IV 01:51: 19:05 s/min (6 [place] Solution 22 :54 mL/hr), at Medic al 6 mL/hr, [place] IV Infusion, TITRATE, Starting [place] 08/04/19 at 2051, Until [facility] 08/05/19 at 1405, LAZARUS, Oxytocin Induction / Augmentati on of Labor. ascorbic 2018- Yes [id number] 500mg Take 1 U nivers acid, 8-20 tablet by ity of vitamin C, 00:00: mouth 3 [place] 500 mg 00 (three) Medical tablet times Branch daily. ferrous 2019-0 Yes [id number] 325mg Take 1 Un [place] sulfate 325 8-20 tablet by ity of mg (65 mg 00:00: mouth 2 [place] iron) 00 (two) Medical tablet times Branch daily. ascorbic 2019-0 Yes [id number] 500mg Take 1 U nivers acid, 8-20 tablet by ity of vitamin C, 00:00: mouth 3 [place] 500 mg 00 (three) Medical tablet times Branch daily. ferrous 2019-0 Yes [id number] 325mg Take 1 Un [place] sulfate 325 8-20 tablet by ity of mg (65 mg 00:00: mouth 2 [place] iron) 00 (two) Medical tablet times Branch daily. ascorbic 2019-0 Yes [id number] 500mg Take 1 U nivers acid, 8-20 tablet by ity of vitamin C, 00:00: mouth 3 [place] 500 mg 00 (three) Medical tablet times Branch daily. ferrous 2019-0 Yes [id number] 325mg Take 1 Un [place] sulfate 325 8-20 tablet by ity of mg (65 mg 00:00: mouth 2 [place] iron) 00 (two) Medical tablet times Branch daily. ascorbic 2019-0 Yes [id number] 500mg Take 1 U nivers acid, 8-20 tablet by ity of vitamin C, 00:00: mouth 3 [place] 500 mg 00 (three) Medical tablet times Branch daily. ferrous 2019-0 Yes [id number] 325mg Take 1 Un [place] sulfate 325 8-20 tablet by ity of mg (65 mg 00:00: mouth 2 [place] iron) 00 (two) Medical tablet times Branch daily. ascorbic 2019-0 Yes [id number] 500mg Take 1 U nivers acid, 8-20 tablet by ity of vitamin C, 00:00: mouth 3 [place] 500 mg 00 (three) Medical tablet times Branch daily. ferrous 2019-0 Yes [id number] 325mg Take 1 Un [place] sulfate 325 8-20 tablet by ity of mg (65 mg 00:00: mouth 2 [place] iron) 00 (two) Medical tablet times Branch daily. ascorbic 2019-0 Yes [id number] 500mg Take 1 U nivers acid, 8-20 tablet by ity of vitamin C, 00:00: mouth 3 [place] 500 mg 00 (three) Medical tablet times Branch daily. ferrous 2019-0 Yes [id number] 325mg Take 1 Un [place] sulfate 325 8-20 tablet by ity of mg (65 mg 00:00: mouth 2 [place] iron) 00 (two) Medical tablet times Branch daily. ascorbic 2019-0 Yes [id number] 500mg Take 1 U nivers acid, 8-20 tablet by ity of vitamin C, 00:00: mouth 3 [place] 500 mg 00 (three) Medical tablet times Branch daily. ferrous 2019-0 Yes [id number] 325mg Take 1 Un [place] sulfate 325 8-20 tablet by ity of mg (65 mg 00:00: mouth 2 [place] iron) 00 (two) Medical tablet times Branch daily. ascorbic 2019-0 Yes [id number] 500mg Take 1 U nivers acid, 8-20 tablet by ity of vitamin C, 00:00: mouth 3 [place] 500 mg 00 (three) Medical tablet times Branch daily. ferrous 2018-0 Yes [id number] 325mg Take 1 Un [place] sulfate 325 8-20 tablet by ity of mg (65 mg 00:00: mouth 2 [place] iron) 00 (two) Medical tablet times Branch daily. ascorbic 2018-0 Yes [id number] 500mg Take 1 U nivers acid, 8-20 tablet by ity of vitamin C, 00:00: mouth 3 [place] 500 mg 00 (three) Medical tablet times Branch daily. ferrous 2018-0 Yes [id number] 325mg Take 1 Un [place]cca sulfate 325 8-20 tablet by ity of mg (65 mg 00:00: mouth 2 [place] iron) 00 (two) Medical tablet times Branch daily. ascorbic 2018- 2019- No [id number] 500mg Take 1 Univers acid, 8-20 09-10 tablet by ity of vitamin C, 00:00: 00:00 mouth 3 [place] as 500 mg 00 :00 (three) Medical tablet times Branch daily. ferrous 2018- 2019- No [id number] 325mg Take 1 U nivers sulfate 325 8-20 09-10 tablet by it y of mg (65 mg 00:00: 00:00 mouth 2 [place] iron) 00 :00 (two) Medical tablet times Branch daily. acyclovir 2018- 2019- No [id number] 400mg Take 1 Univers 400 mg 07-15 9109 tablet by ity of tablet 00:00: 04:59 mouth 2 [place] 00 :00 (two) Medical times Branch daily for 31 days. acyclovir 2018- 2019- No [id number] 400mg Take 1 Univers 400 mg 8-15 08- 9109 tablet by ity of tablet 00:00: 04:59 mouth 2 [place] 00 :00 (two) Medical times Branch daily for 31 days. acyclovir 2018- 2019- No [id number] 400mg Take 1 Univers 400 mg 8-15 08- 9109 tablet by ity of tablet 00:00: 04:59 mouth 2 [place] 00 :00 (two) Medical times Branch daily for 31 days. acyclovir 2018- 2019- No [id number] 400mg Take 1 Univers 400 mg 8-15 08- 9109 tablet by ity of tablet 00:00: 04:59 mouth 2 [place] 00 :00 (two) Medical times Branch daily for 31 days. acyclovir 2018- 2019- No [id number] 400mg Take 1 Univers 400 mg 8-15 08- 9109 tablet by ity of tablet 00:00: 04:59 mouth 2 [place] 00 :00 (two) Medical times Branch daily for 31 days. acyclovir 2018- 2019- No [id number] 400mg Take 1 Univers 400 mg 8-15 08- 9109 tablet by ity of tablet 00:00: 04:59 mouth 2 [place] 00 :00 (two) Medical times Branch daily for 31 days. acyclovir 2018- 2019- No [id number] 400mg Take 1 Univers 400 mg 8-15 08- 9109 tablet by ity of tablet 00:00: 04:59 mouth 2 [place] 00 :00 (two) Medical times Branch daily for 31 days. acyclovir 2018- 2019- No [id number] 400mg Take 1 Univers 400 mg 8-15 08- 9109 tablet by ity of tablet 00:00: 04:59 mouth 2 [place] 00 :00 (two) Medical times Branch daily for 31 days. acyclovir 2018-0 2019- No [id number] 400mg Take 1 Univers 400 mg 8-15 08- 9109 tablet by ity of tablet 00:00: 04:59 mouth 2 [place] 00 :00 (two) Medical times Branch daily for 31 days. acyclovir 2018-0 2019- No [id number] 400mg Take 1 Univers 400 mg 07-15 9109 tablet by ity of tablet 00:00: 04:59 mouth 2 [place] 00 :00 (two) Medical times Branch daily for 31 days. acyclovir 2019- No [id number] 400mg Take 1 Univers 400 mg 07-15 9109 tablet by ity of tablet 00:00: 04:59 mouth 2 [place] 00 :00 (two) Medical times Branch daily for 31 days. acyclovir 2019- No [id number] 400mg Take 1 Univers 400 mg 07-15 9109 tablet by ity of tablet 00:00: 04:59 mouth 2 [place] 00 :00 (two) Medical times Branch daily for 31 days. Blood-Gluco 0 Yes [id number] Use as Univers se Meter 6-24 directed ity of (TRUE 00:00: [place] METRIX 00 Medical GLUCOSE Branch METER) [facility] [place]-Gluco [place]-0 Yes [id number] Use as Univers se Meter 6-24 directed ity of (TRUE 00:00: [place] METRIX 00 Medical GLUCOSE Branch METER) [facility] Blood-Gluco 0 Yes [id number] Use as Univers se Meter 6-24 directed ity of (TRUE 00:00: [place] METRIX 00 Medical GLUCOSE Branch METER) [facility] Blood-Gluco 2018-0 Yes [id number] Use as Univers se Meter 6-24 directed ity of (TRUE 00:00: [place] METRIX 00 Medical GLUCOSE Branch [place] [facility] [place]0 [place] [id number] Use as Univers se Meter 6-24 directed ity of (TRUE 00:00: [place] METRIX 00 Medical GLUCOSE [facility] METER[place] [facility] [place]-0 Yes [id number] Use as Univers se Meter 6-24 directed ity of (TRUE 00:00: [place] METRIX 00 Medical GLUCOSE Branch METER[place] [facility] [place]-0 Yes [id number] Use as Univers se Meter 6-24 directed ity of (TRUE 00:00: [place] METRIX 00 Medical GLUCOSE Branch METER[place] [facility] [place]-0 Yes [id number] Use as Univers se Meter 6-24 directed ity of (TRUE 00:00: [place] METRIX 00 Medical GLUCOSE Branch METER[place] [facility] [place]-0 Yes [id number] Use as [facility] se Meter 6-24 directed ity of (TRUE 00:00: [place] METRIX 00 Medical GL[facility]COSE Branch [facility] [id number] Use as Univers se Meter 6-24 directed ity of (TRUE 00:00: [place] METRIX 00 Medical GLUCOSE Branch METER) Misc Blood-Gluco 0 Yes [id number] Use as Univers se Meter 6-24 directed ity of (TRUE 00:00: [place] METRIX 00 Medical GLUCOSE Branch METER) [facility] Yes [id number] Use as Univers se Meter 6-24 directed ity of (TRUE 00:00: [place] METRIX 00 Medical GLUCOSE Branch METER) [facility] Yes [id number] Use as Univers se Meter 6-24 directed ity of (TRUE 00:00: [place] METRIX 00 Medical GLUCOSE Branch METER) [facility] Yes [id number] Use as Univers se Meter 6-24 directed ity of (TRUE 00:00: [place] METRIX 00 Medical GLUCOSE Branch METER) [facility] 2019- No [id number] Use as Univers se Meter 6-24 08-06 directed ity of (TRUE 00:00: 00:00 [place] METRIX 00 :00 Medical GLUCOSE [facility] METER[place] [facility] [place] [id number] 150mg Take 1 [facility] SR 5-28 tablet by ity of (WELLBUTRIN 00:00: mouth [place] SR) 150 mg 00 daily. Medical SR tablet Branch blood sugar Yes [id number] Use as Univers diagnostic 5-28 directed ity o f (TRUE 00:00: [place] METRIX 00 Medical GLUCOSE Branch TEST STRIP) strip lancets Yes [id number] Use as Univ ers (LANCETS,UL 5-28 directed ity of TRA THIN) 00:00: [place] 26 gauge 00 Medical Misc Branch buPROPion 0 Yes [id number] 150mg Take 1 Univers SR 5-28 tablet by ity of (WELLBUTRIN 00:00: mouth [place] SR) 150 mg 00 daily. Medical SR tablet Branch blood sugar Yes [id number] Use as Univers diagnostic 5-28 directed ity o f (TRUE 00:00: [place] METRIX 00 Medical GLUCOSE Branch TEST STRIP) strip lancets Yes [id number] Use as Univ ers (LANCETS,UL 5-28 directed ity of TRA THIN) 00:00: [place] 26 gauge Medical Misc Branch buPROPion 2019-0 Yes [id number] 150mg Take 1 Univers SR 5-28 tablet by ity of (WELLBUTRIN 00:00: mouth [place] SR) 150 mg 00 daily. Medical SR tablet Branch blood sugar Yes [id number] Use as Univers diagnostic 5-28 directed ity o f (TRUE 00:00: [place] METRIX 00 Medical GLUCOSE Branch TEST STRIP) strip lancets Yes [id number] Use as Univ ers (LANCETS,UL 5-28 directed ity of TRA THIN) 00:00: [place] 26 gauge Medical Misc Branch buPROPion 2018-0 Yes [id number] 150mg Take 1 Univers SR 5-28 tablet by ity of (WELLBUTRIN 00:00: mouth [place] SR) 150 mg 00 daily. Medical SR tablet Branch blood sugar Yes [id number] Use as Univers diagnostic 5-28 directed ity o f (TRUE 00:00: [place] METRIX 00 Medical GLUCOSE Branch TEST STRIP) strip lancets Yes [id number] Use as Univ ers (LANCETS,UL 5-28 directed ity of TRA THIN) 00:00: [place] 26 gauge Medical Misc Branch buPROPion 2018-0 Yes [id number] 150mg Take 1 Univers SR 5-28 tablet by ity of (WELLBUTRIN 00:00: mouth [place] SR) 150 mg 00 daily. Medical SR tablet Branch blood sugar 0 Yes [id number] Use as Univers diagnostic 5-28 directed ity o f (TRUE 00:00: [place] METRIX 00 Medical GLUCOSE Branch TEST STRIP) strip lancets Yes [id number] Use as Univ ers (LANCETS,UL 5-28 directed ity of TRA THIN) 00:00: [place] 26 gauge Medical Misc Branch buPROPion 2018-0 Yes [id number] 150mg Take 1 Univers SR 5-28 tablet by ity of (WELLBUTRIN 00:00: mouth [place] SR) 150 mg 00 daily. Medical SR tablet Branch blood sugar Yes [id number] Use as Univers diagnostic 5-28 directed ity o f (TRUE 00:00: [place] METRIX 00 Medical GLUCOSE Branch TEST STRIP) strip lancets Yes [id number] Use as Univ ers (LANCETS,UL 5-28 directed ity of TRA THIN) 00:00: [place] 26 gauge Medical Misc Branch buPROPion 2019-0 Yes [id number] 150mg Take 1 Univers SR 5-28 tablet by ity of (WELLBUTRIN 00:00: mouth [place] SR) 150 mg 00 daily. Medical SR tablet Branch blood sugar Yes [id number] Use as Univers diagnostic 5-28 directed ity o f (TRUE 00:00: [place] METRIX 00 Medical GLUCOSE Branch TEST STRIP) strip lancets Yes [id number] Use as Univ ers (LANCETS,UL 5-28 directed ity of TRA THIN) 00:00: [place] 26 gauge Medical Misc Branch buPROPion 2018-0 Yes [id number] 150mg Take 1 Univers SR 5-28 tablet by ity of (WELLBUTRIN 00:00: mouth [place] SR) 150 mg 00 daily. Medical SR tablet Branch blood sugar Yes [id number] Use as Univers diagnostic 5-28 directed ity o f (TRUE 00:00: [place] METRIX 00 Medical GLUCOSE Branch TEST STRIP) strip lancets Yes [id number] Use as Univ ers (LANCETS,UL 5-28 directed ity of TRA THIN) 00:00: [place] 26 gauge Medical Misc Branch buPROPion 2018-0 Yes [id number] 150mg Take 1 Univers SR 5-28 tablet by ity of (WELLBUTRIN 00:00: mouth [place] SR) 150 mg 00 daily. Medical SR tablet Branch blood sugar 0 Yes [id number] Use as Univers diagnostic 5-28 directed ity o f (TRUE 00:00: [place] METRIX 00 Medical GLUCOSE Branch TEST STRIP) strip lancets Yes [id number] Use as Univ ers (LANCETS,UL 5-28 directed ity of TRA THIN) 00:00: [place] 26 gauge Medical Misc Branch buPROPion 2018-0 Yes [id number] 150mg Take 1 Univers SR 5-28 tablet by ity of (WELLBUTRIN 00:00: mouth [place] SR) 150 mg 00 daily. Medical SR tablet Branch blood sugar Yes [id number] Use as Univers diagnostic 5-28 directed ity o f (TRUE 00:00: [place] METRIX 00 Medical GLUCOSE Branch TEST STRIP) strip lancets Yes [id number] Use as Univ ers (LANCETS,UL 5-28 directed ity of TRA THIN) 00:00: [place] 26 gauge Medical Misc Branch buPROPion 2019-0 Yes [id number] 150mg Take 1 Univers SR 5-28 tablet by ity of (WELLBUTRIN 00:00: mouth [place] SR) 150 mg 00 daily. Medical SR tablet Branch blood sugar Yes [id number] Use as Univers diagnostic 5-28 directed ity o f (TRUE 00:00: [place] METRIX 00 Medical GLUCOSE Branch TEST STRIP) strip lancets Yes [id number] Use as Univ ers (LANCETS,UL 5-28 directed ity of TRA THIN) 00:00: [place] 26 gauge Medical Misc Branch buPROPion 2018-0 Yes [id number] 150mg Take 1 Univers SR 5-28 tablet by ity of (WELLBUTRIN 00:00: mouth [place] SR) 150 mg 00 daily. Medical SR tablet Branch blood sugar Yes [id number] Use as Univers diagnostic 5-28 directed ity o f (TRUE 00:00: [place] METRIX 00 Medical GLUCOSE Branch TEST STRIP) strip lancets Yes [id number] Use as Univ ers (LANCETS,UL 5-28 directed ity of TRA THIN) 00:00: [place] 26 gauge Medical Misc Branch buPROPion 2018-0 Yes [id number] 150mg Take 1 Univers SR 5-28 tablet by ity of (WELLBUTRIN 00:00: mouth [place] SR) 150 mg 00 daily. Medical SR tablet Branch blood sugar 0 Yes [id number] Use as Univers diagnostic 5-28 directed ity o f (TRUE 00:00: [place] METRIX 00 Medical GLUCOSE Branch TEST STRIP) strip lancets Yes [id number] Use as Univ ers (LANCETS,UL 5-28 directed ity of TRA THIN) 00:00: [place] 26 gauge Medical Misc Branch buPROPion 2018-0 Yes [id number] 150mg Take 1 Univers SR 5-28 tablet by ity of (WELLBUTRIN 00:00: mouth [place] SR) 150 mg 00 daily. Medical SR tablet Branch blood sugar Yes [id number] Use as Univers diagnostic 5-28 directed ity o f (TRUE 00:00: [place] METRIX 00 Medical GLUCOSE Branch TEST STRIP) strip lancets Yes [id number] Use as Univ ers (LANCETS,UL -28 directed ity of TRA THIN) 00:00: [place] 26 gauge 00 Medical Misc Branch buPROPion 2019- No [id number] 150mg Take 1 Univers SR 04-23 tablet by ity of (WELLBUTRIN 00:00: 00:[place] SR[place] 150 mg 00 :00 daily. Medical SR tablet Branch blood sugar 2019- No [id number] Use as Univers diagnostic 04-23 directed ity of (TRUE 00:00: 00:00 [place] METRIX 00 :00 Medical GLUCOSE Branch TEST STRIP) strip lancets 2019- No [id number] Use as Uni vers (LANCETS,UL 04-23 directed ity of TRA THIN) 00:00: 00:00 [place] 26 gauge 00 :00 Medical Misc Branch acetaminoph Yes [id number] 1{capsu Take 1 Univers en-caff-but 4-17 le} capsule by it y of albital 00:00: mouth [place] (ESGIC) per 00 every 4 Medic al capsule (four) Branch hours as needed for Headache. acetaminoph Yes [id number] 1{capsu Take 1 Univers en-caff-but 4-17 le} capsule by it y of albital 00:00: mouth [place] (ESGIC) per 00 every 4 Medic al capsule (four) Branch hours as needed for Headache. acetaminoph Yes [id number] 1{capsu Take 1 Univers en-caff-but 4-17 le} capsule by it y of albital 00:00: mouth [place] (ESGIC) per 00 every 4 Medic al capsule (four) Branch hours as needed for Headache. acetaminoph Yes [id number] 1{capsu Take 1 Univers en-caff-but 4-17 le} capsule by it y of albital 00:00: mouth [place] (ESGIC) per 00 every 4 Medic al capsule (four) Branch hours as needed for Headache. acetaminoph Yes [id number] 1{capsu Take 1 Univers en-caff-but 4-17 le} capsule by it y of albital 00:00: mouth [place] (ESGIC) per 00 every 4 Medic al capsule (four) Branch hours as needed for Headache. acetaminoph Yes [id number] 1{capsu Take 1 Univers en-caff-but 4-17 le} capsule by it y of albital 00:00: mouth [place] (ESGIC) per 00 every 4 Medic al capsule (four) Branch hours as needed for Headache. acetaminoph Yes [id number] 1{capsu Take 1 Univers en-caff-but 4-17 le} capsule by it y of albital 00:00: mouth [place] (ESGIC) per 00 every 4 Medic al capsule (four) Branch hours as needed for Headache. acetaminoph Yes [id number] 1{capsu Take 1 Univers en-caff-but 4-17 le} capsule by it y of albital 00:00: mouth [place] (ESGIC) per 00 every 4 Medic al capsule (four) Branch hours as needed for Headache. acetaminoph Yes [id number] 1{capsu Take 1 Univers en-caff-but 4-17 le} capsule by it y of albital 00:00: mouth [place] (ESGIC) per 00 every 4 Medic al capsule (four) Branch hours as needed for Headache. acetaminoph Yes [id number] 1{capsu Take 1 Univers en-caff-but 4-17 le} capsule by it y of albital 00:00: mouth [place] (ESGIC) per 00 every 4 Medic al capsule (four) Branch hours as needed for Headache. acetaminoph Yes [id number] 1{capsu Take 1 Univers en-caff-but 4-17 le} capsule by it y of albital 00:00: mouth [place] (ESGIC) per 00 every 4 Medic al capsule (four) Branch hours as needed for Headache. acetaminoph Yes [id number] 1{capsu Take 1 Univers en-caff-but 4-17 le} capsule by it y of albital 00:00: mouth [place] (ESGIC) per 00 every 4 Medic al capsule (four) Branch hours as needed for Headache. acetaminoph Yes [id number] 1{capsu Take 1 Univers en-caff-but 4-17 le} capsule by it y of albital 00:00: mouth [place] (ESGIC) per 00 every 4 Medic al capsule (four) Branch hours as needed for Headache. acetaminoph Yes [id number] 1{capsu Take 1 Univers en-caff-but 17 le} capsule by it y of albital 00:00: mouth [place] (ESGIC) per 00 every 4 Medic al capsule (four) Branch hours as needed for Headache. acetaminoph 2019- No [id number] 1{capsu Take 1 Univers en-caff-but 17 09-10 le} capsule by i ty of albital 00:00: 00:00 mouth [place] (ESGIC) per 00 :00 every 4 Medic al capsule (four) Branch hours as needed for Headache. Blood-Gluco Yes [id number] Check U nivers se Meter 2-27 glucose ity of (TRUE 00:00: level 4x [place] METRIX 00 daily Medical GLUCOSE Branch METER) Mis blood sugar Yes [id number] Check U nivers diagnostic 2-27 glucose ity of (TRUE 00:00: level 4x [place] METRIX 00 daily Medical GLUCOSE Branch TEST STRIP) strip lancets Yes [id number] Check Un becca gauge Misc 2-27 glucose ity of 00:00: level 4x [place] 00 daily Medical Branch Blood-Gluco Yes [id number] Check U nivers se Meter 2-27 glucose ity of (TRUE 00:00: level 4x [place] METRIX 00 daily Medical GLUCOSE Branch METER) Mis blood sugar Yes [id number] Check U nivers diagnostic 2-27 glucose ity of (TRUE 00:00: level 4x [place] METRIX 00 daily Medical GLUCOSE Branch TEST STRIP) strip lancets Yes [id number] Check Un becca gauge Misc 2-27 glucose ity of 00:00: level 4x [place] 00 daily Medical Branch Blood-Gluco Yes [id number] Check U nivers se Meter 2-27 glucose ity of (TRUE 00:00: level 4x [place] METRIX 00 daily Medical GLUCOSE Branch METER) Misc blood sugar Yes [id number] Check U nivers diagnostic 2-27 glucose ity of (TRUE 00:00: level 4x [place] METRIX 00 daily Medical GLUCOSE Branch TEST STRIP) strip lancets Yes [id number] Check Un becca gauge Misc 2-27 glucose ity of 00:00: level 4x [place] 00 daily Medical Branch Blood-Gluco Yes [id number] Check U nivers se Meter 2-27 glucose ity of (TRUE 00:00: level 4x [place] METRIX 00 daily Medical GLUCOSE Branch METER) Misc blood sugar Yes [id number] Check U nivers diagnostic 2-27 glucose ity of (TRUE 00:00: level 4x [place] METRIX 00 daily Medical GLUCOSE Branch TEST STRIP) strip lancets Yes [id number] Check Un becca gauge Misc 2-27 glucose ity of 00:00: level 4x [place] 00 daily Medical Branch Blood-Gluco Yes [id number] Check U nivers se Meter 2-27 glucose ity of (TRUE 00:00: level 4x [place] METRIX 00 daily Medical GLUCOSE Branch METER) Misc blood sugar Yes [id number] Check U nivers diagnostic 2-27 glucose ity of (TRUE 00:00: level 4x [place] METRIX 00 daily Medical GLUCOSE Branch TEST STRIP) strip lancets Yes [id number] Check Un becca gauge Misc 2-27 glucose ity of 00:00: level 4x [place] 00 daily Medical Branch Blood-Gluco Yes [id number] Check U nivers se Meter 2-27 glucose ity of (TRUE 00:00: level 4x [place] METRIX 00 daily Medical GLUCOSE Branch METER) Misc blood sugar Yes [id number] Check U nivers diagnostic 2-27 glucose ity of (TRUE 00:00: level 4x [place] METRIX 00 daily Medical GLUCOSE Branch TEST STRIP) strip lancets Yes [id number] Check Un becca gauge Misc 2-27 glucose ity of 00:00: level 4x [place] 00 daily Medical Branch Blood-Gluco Yes [id number] Check U nivers se Meter 2-27 glucose ity of (TRUE 00:00: level 4x [place] METRIX 00 daily Medical GLUCOSE Branch METER) Misc blood sugar Yes [id number] Check U nivers diagnostic 2-27 glucose ity of (TRUE 00:00: level 4x [place] METRIX 00 daily Medical GLUCOSE Branch TEST STRIP) strip lancets Yes [id number] Check Un becca gauge Misc 2-27 glucose ity of 00:00: level 4x [place] 00 daily Medical Branch Blood-Gluco Yes [id number] Check U nivers se Meter 2-27 glucose ity of (TRUE 00:00: level 4x [place] METRIX 00 daily Medical GLUCOSE Branch METER) Misc blood sugar Yes [id number] Check U nivers diagnostic 2-27 glucose ity of (TRUE 00:00: level 4x [place] METRIX 00 daily Medical GLUCOSE Branch TEST STRIP) strip lancets Yes [id number] Check Un becca gauge Misc 2-27 glucose ity of 00:00: level 4x [place] 00 daily Medical Branch Blood-Gluco Yes [id number] Check U nivers se Meter 2-27 glucose ity of (TRUE 00:00: level 4x [place] METRIX 00 daily Medical GLUCOSE Branch METER) Misc blood sugar Yes [id number] Check U nivers diagnostic 2-27 glucose ity of (TRUE 00:00: level 4x [place] METRIX 00 daily Medical GLUCOSE Branch TEST STRIP) strip lancets Yes [id number] Check Un becca gauge Misc 2-27 glucose ity of 00:00: level 4x [place] 00 daily Medical Branch Blood-Gluco Yes [id number] Check U nivers se Meter 2-27 glucose ity of (TRUE 00:00: level 4x [place] METRIX 00 daily Medical GLUCOSE Branch METER) Misc blood sugar Yes [id number] Check U nivers diagnostic 2-27 glucose ity of (TRUE 00:00: level 4x [place] METRIX 00 daily Medical GLUCOSE Branch TEST STRIP) strip Blood-Gluco Yes [id number] Check U nivers se Meter 2-27 glucose ity of (TRUE 00:00: level 4x [place] METRIX 00 daily Medical GLUCOSE Branch METER) Misc blood sugar Yes [id number] Check U nivers diagnostic 2-27 glucose ity of (TRUE 00:00: level 4x [place] METRIX 00 daily Medical GLUCOSE Branch TEST STRIP) strip lancets Yes [id number] Check Un becca gauge Misc 2-27 glucose ity of 00:00: level 4x [place] 00 daily Medical Branch lancets 28 Yes [id number] Check Un becca gauge Misc 2-27 glucose ity of 00:00: level 4x [place] 00 daily Medical Branch Blood-Gluco Yes [id number] Check U nivers se Meter 2-27 glucose ity of (TRUE 00:00: level 4x [place] METRIX 00 daily Medical GLUCOSE Branch METER) Misc blood sugar Yes [id number] Check U nivers diagnostic 2-27 glucose ity of (TRUE 00:00: level 4x [place] METRIX 00 daily Medical GLUCOSE Branch TEST STRIP) strip lancets Yes [id number] Check Un becca gauge Misc 2-27 glucose ity of 00:00: level 4x [place] 00 daily Medical Branch Blood-Gluco Yes [id number] Check U nivers se Meter 2-27 glucose ity of (TRUE 00:00: level 4x [place] METRIX 00 daily Medical GLUCOSE Branch METER) Misc blood sugar Yes [id number] Check U nivers diagnostic 2-27 glucose ity of (TRUE 00:00: level 4x [place] METRIX 00 daily Medical GLUCOSE Branch TEST STRIP) strip lancets Yes [id number] Check Un becca gauge Misc 2-27 glucose ity of 00:00: level 4x [place] 00 daily Medical Branch Blood-Gluco Yes [id number] Check U nivers se Meter 2-27 glucose ity of (TRUE 00:00: level 4x [place] METRIX 00 daily Medical GLUCOSE Branch METER) Misc blood sugar Yes [id number] Check U nivers diagnostic 2-27 glucose ity of (TRUE 00:00: level 4x [place] METRIX 00 daily Medical GLUCOSE Branch TEST STRIP) strip lancets Yes [id number] Check Un becca gauge Misc 2-27 glucose ity of 00:00: level 4x [place] 00 daily Medical Branch Blood-Gluco 2019- No [id number] Check Univers se Meter 2- 09-10 glucose ity of (TRUE 00:00: 00:00 level 4x [place] METRIX 00 :00 daily Medical GLUCOSE Branch METER) Misc blood sugar 2019- No [id number] Check Univers diagnostic 2- 09-10 glucose ity o f (TRUE 00:00: 00:00 level 4x [place] METRIX 00 :00 daily Medical GLUCOSE Branch TEST STRIP) strip lancets 2019- No [id number] Check U nivers gauge Misc 2-27 09-10 glucose ity o f 00:00: 00:00 level 4x [place] 00 :00 daily Medical Branch Immunizations Ordered Filled Immunization Date Status Comments Sourc e Immunization Name Name HPV9 2019-09-17 Completed University of 00:00:00 [facility] HPV9 2019-09-17 Completed University of 00:00:00 [place] [facility] HPV9 2019-09-17 Completed University of 00:00:00 [place] [facility] HPV9 2019-09-17 Completed University of 00:00:00 [place] [facility] HPV9 2019-09-17 Completed University of 00:00:00 [place] [facility] HPV9 2019-09-17 Completed University of 00:00:00 [facility] HPV9 2019-09-17 Completed University of 00:00:00 [facility] HPV9 2019-09-17 Completed University of 00:00:00 [facility] Tdap 2019-05-20 Completed University of 00:00:00 [facility] Tdap 2019-05-20 Completed University of 00:00:00 [facility] Tdap 2019-05-20 Completed University of 00:00:00 [facility] Tdap 2019-05-20 Completed University of 00:00:00 [facility] Tdap 2019-05-20 Completed University of 00:00:00 [facility] Tdap 2019-05-20 Completed University of 00:00:00 [facility] Tdap 2019-05-20 Completed University of 00:00:00 [facility] Tdap 2019-05-20 Completed University of 00:00:00 [facility] Tdap 2019-05-20 Completed University of 00:00:00 [place] [facility] Tdap 2019-05-20 Completed University of 00:00:00 [place] [facility] Tdap 2019-05-20 Completed University of 00:00:00 [facility] Tdap 2019-05-20 Completed University of 00:00:00 [facility] Tdap 2019-05-20 Completed University of 00:00:00 [facility] Tdap 2019-05-20 Completed University of 00:00:00 [facility] TDAP 2019-05-20 Completed University of 00:00:00 [facility] TDAP 2019-05-20 Completed University of 00:00:00 [facility] TDAP 2019-05-20 Completed University of 00:00:00 [place] [facility] TDAP 2019-05-20 Completed University of 00:00:00 [place] [facility] TDAP 2019-05-20 Completed University of 00:00:00 [place] [facility] TDAP 2019-05-20 Completed University of 00:00:00 [place] [facility] TDAP 2019-05-20 Completed University of 00:00:00 [place] [facility] Tdap 2019-05-20 Completed University of 00:00:00 [place] [facility] Tdap 2019-05-20 Completed University of 00:00:00 [place] [facility] HPV9 2018-07-04 Completed University of 00:00:00 [place] [facility] HPV9 2018-07-04 Completed University of 00:00:00 [place] [facility] HPV9 2018-07-04 Completed University of 00:00:00 [place] [facility] HPV9 2018-07-04 Completed University of 00:00:00 [place] [facility] HPV9 2018-07-04 Completed University of 00:00:00 [place] [facility] HPV9 2018-07-04 Completed University of 00:00:00 [place] [facility] HPV9 2018-07-04 Completed University of 00:00:00 [place] [facility] HPV9 2018-07-04 Completed University of 00:00:00 [place] [facility] HPV9 2018-07-04 Completed University of 00:00:00 [place] [facility] HPV9 2018-07-04 Completed University of 00:00:00 [place] [facility] HPV9 2018-07-04 Completed University of 00:00:00 [place] [facility] HPV9 2018-07-04 Completed University of 00:00:00 [place] [facility] HPV9 2018-07-04 Completed University of 00:00:00 [place] [facility] HPV9 2018-07-04 Completed University of 00:00:00 [place] [facility] HPV9 2018-07-04 Completed University of 00:00:00 [place] [facility] HPV9 2018-07-04 Completed University of 00:00:00 [place] [facility] HPV9 2018-07-04 Completed University of 00:00:00 [place] [facility] HPV9 2018-07-04 Completed University of 00:00:00 [place] [facility] HPV9 2018-07-04 Completed University of 00:00:00 [place] [facility] HPV9 2018-07-04 Completed University of 00:00:00 [place] [facility] HPV9 2018-07-04 Completed University of 00:00:00 [place] [facility] HPV9 2018-07-04 Completed University of 00:00:00 [place] [facility] HPV9 2018-07-04 Completed University of 00:00:00 [place] [facility] HPV9 2018-04-05 Completed University of 00:00:00 [place] [facility] HPV9 2018-04-05 Completed University of 00:00:00 [place] [facility] HPV9 2018-04-05 Completed University of 00:00:00 [place] [facility] HPV9 2018-04-05 Completed University of 00:00:00 [place] [facility] HPV9 2018-04-05 Completed University of 00:00:00 [place] [facility] HPV9 2018-04-05 Completed University of 00:00:00 [place] [facility] HPV9 2018-04-05 Completed University of 00:00:00 [place] [facility] HPV9 2018-04-05 Completed University of 00:00:00 [place] [facility] HPV9 2018-04-05 Completed University of 00:00:00 [place] [facility] HPV9 2018-04-05 Completed University of 00:00:00 [place] [facility] HPV9 2018-04-05 Completed University of 00:00:00 [place] [facility] HPV9 2018-04-05 Completed University of 00:00:00 [place] [facility] HPV9 2018-04-05 Completed University of 00:00:00 [place] [facility] HPV9 2018-04-05 Completed University of 00:00:00 [place] [facility] HPV9 2018-04-05 Completed University of 00:00:00 [place] [facility] HPV9 2018-04-05 Completed University of 00:00:00 [place] [facility] HPV9 2018-04-05 Completed University of 00:00:00 [place] [facility] HPV9 2018-04-05 Completed University of 00:00:00 [place] [facility] HPV9 2018-04-05 Completed University of 00:00:00 [place] [facility] HPV9 2018-04-05 Completed University of 00:00:00 [place] [facility] HPV9 2018-04-05 Completed University of 00:00:00 [place] [facility] HPV9 2018-04-05 Completed University of 00:00:00 [place] [facility] HPV9 2018-04-05 Completed University of 00:00:00 [facility] Tdap 2016-11-23 Completed University of 00:00:00 [facility] Tdap 2016-11-23 Completed University of 00:00:00 [facility] Tdap 2016-11-23 Completed University of 00:00:00 [facility] Tdap 2016-11-23 Completed University of 00:00:00 [place] [facility] Tdap 2016-11-23 Completed University of 00:00:00 [place] [facility] Tdap 2016-11-23 Completed [facility] 00:00:00 [facility] Tdap 2016-11-23 Completed [facility] 00:00:00 [facility] Tdap 2016-11-23 Completed [facility] 00:00:00 [facility] Tdap 2016-11-23 Completed [facility] 00:00:00 [facility] Tdap 2016-11-23 Completed [facility] 00:00:00 [facility] Tdap 2016-11-23 Completed [facility] 00:00:00 [facility] Tdap 2016-11-23 Completed [facility] 00:00:00 [facility] Tdap 2016-11-23 Completed [facility] 00:00:00 [facility] TDAP 2016-11-23 Completed [facility] 00:00:00 [facility] TDAP 2016-11-23 Completed [facility] of 00:00:00 [facility] TDAP 2016-11-23 Completed [facility] 00:00:00 [facility] TDAP 2016-11-23 Completed [facility] 00:00:00 [facility] TDAP 2016-11-23 Completed [facility] 00:00:00 [facility] TDAP 2016-11-23 Completed [facility] of 00:00:00 [facility] TDAP 2016-11-23 Completed [facility] of 00:00:00 [facility] Tdap 2016-11-23 Completed [facility] 00:00:00 [facility] Tdap 2016-11-23 Completed [facility] of 00:00:00 [facility] Tdap 2016-11-23 Completed University of 00:00:00 [facility] Vital Signs Vital Name Observation Time Observation Value Comments Source Systolic blood 2021-03-04 19:58:00 133 mm[Hg] Univer sity of pressure [facility] Diastolic blood 2021-03-04 19:58:00 90 mm[Hg] Unive rsity of pressure [facility] Heart rate 2021-03-04 19:58:00 87 /[facility] 2021-03-04 19:58:00 36.17 Linda Univ ersity of [facility] Respiratory rate 2021-03-04 19:58:00 16 /min Univ ersity [facility] Body height 2021-03-04 19:58:00 152.4 cm [facility] Body weight 2021-03-04 19:58:00 105.371 kg [facility] BMI 2021-03-04 19:58:00 45.37 kg/m2 [facility] Systolic blood 2020-12-10 20:38:00 120 mm[Hg] Univer sity of pressure [facility] Diastolic blood 2020-12-10 20:38:00 80 mm[Hg] Unive rsity of pressure [facility] Body temperature 2020-12-10 20:38:00 36.72 Linda Univ ers[facility] Respiratory rate 2020-12-10 20:38:00 16 /min Univ ersity [facility] Body height 2020-12-10 20:38:00 157.5 cm [facility] Body weight 2020-12-10 20:38:00 107.304 kg [facility] BMI 2020-12-10 20:38:00 43.27 kg/m2 [facility] Systolic blood 2020-12-10 20:38:00 120 mm[Hg] Univer sity of pressure [facility] Diastolic blood 2020-12-10 20:38:00 80 mm[Hg] Unive rsity of pressure [facility] Body temperature 2020-12-10 20:38:00 36.72 Linda Univ ers[facility] Respiratory rate 2020-12-10 20:38:00 16 /min Univ ersity [facility] Body height 2020-12-10 20:38:00 157.5 cm [facility] Body weight 2020-12-10 20:38:00 107.304 kg [facility] BMI 2020-12-10 20:38:00 43.27 kg/m2 [facility] Systolic blood 2020-09-16 19:13:00 130 mm[Hg] Univer sity of pressure [facility] Diastolic blood 2020-09-16 19:13:00 77 mm[Hg] Unive rsity of pressure [facility] Heart rate 2020-09-16 19:13:00 102 /min [facility] Body temperature 2020-09-16 19:13:00 36.83 Linda Univ [facility] Respiratory rate 2020-09-16 19:13:00 16 /min Univ ersity of [facility] Body height 2020-09-16 19:13:00 157.5 cm [facility] Body weight 2020-09-16 19:13:00 108.5 kg [facility] BMI 2020-09-16 19:13:00 43.75 kg/m2 Universi ty of [facility] Systolic blood 2019-12-24 21:14:00 128 mm[Hg] Univer sity of pressure [facility] Diastolic blood 2019-12-24 21:14:00 81 mm[Hg] Unive rsity of pressure [facility] Heart rate 2019-12-24 21:14:00 74 /min Universi ty of [facility] Body temperature 2019-12-24 21:14:00 36.67 Linda Univ ers[facility] of [facility] Respiratory rate 2019-12-24 21:14:00 16 /min Univ ersity of [facility] Body height 2019-12-24 21:14:00 152.4 cm Universi ty of [facility] Body weight 2019-12-24 21:14:00 92.676 kg [facility] BMI 2019-12-24 21:14:00 39.90 kg/m2 Universi ty [facility] Systolic blood 2019-08-06 17:00:00 125 mm[Hg] Univer sity of pressure [facility] Diastolic blood 2019-08-06 17:00:00 70 mm[Hg] Unive rsity of pressure [facility] Heart rate 2019-08-06 17:00:00 78 /min Universi ty of [facility] Body temperature 2019-08-06 17:00:00 36.72 Linda Univ ersity of [facility] Respiratory rate 2019-08-06 17:00:00 18 /min [facility] Oxygen saturation in 2019-08-06 17:00:00 98 /min [facility] Arterial blood by [facility] Pulse oximetry [place] Body height 2019-08-05 01:15:00 152.4 cm Universi ty of [facility] Body weight 2019-08-05 01:15:00 89.812 kg Universi ty of [facility] BMI 2019-08-05 01:15:00 38.67 kg/m2 [facility] Systolic blood 2019-08-01 15:54:00 123 mm[Hg] Univer sity of pressure [facility] Diastolic blood 2019-08-01 15:54:00 79 mm[Hg] Unive rsity of pressure [facility] Heart rate 2019-08-01 15:54:00 86 /min [facility] Body temperature 2019-08-01 15:54:00 36.39 Linda [facility] Respiratory rate 2019-08-01 15:54:00 16 /min Univ [facility] Body height 2019-08-01 15:54:00 152.4 cm [facility] Body weight 2019-08-01 15:54:00 91.797 kg [facility] BMI 2019-08-01 15:54:00 39.52 kg/m2 [facility] Systolic blood 2019-07-30 18:07:00 110 mm[Hg] Univer sity of pressure [facility] Diastolic blood 2019-07-30 18:07:00 66 mm[Hg] Unive rsity of pressure [facility] Heart rate 2019-07-30 18:07:00 80 /min [facility] Body temperature 2019-07-30 18:07:00 36.67 Linda Univ ers[facility] Respiratory rate 2019-07-30 18:07:00 16 /min Univ ersity of [facility] Body height 2019-07-30 18:07:00 152.4 cm [facility] Body weight 2019-07-30 18:07:00 91.286 kg [facility] BMI 2019-07-30 18:07:00 39.30 kg/m2 [facility] Systolic blood 2019-07-25 19:08:00 129 mm[Hg] Univer sity of pressure [facility] Diastolic blood 2019-07-25 19:08:00 87 mm[Hg] Unive rsity of pressure [facility] Heart rate 2019-07-25 19:08:00 111 /min [facility] Body temperature 2019-07-25 19:08:00 36.28 Linda Univ [facility] Respiratory rate 2019-07-25 19:08:00 16 /min Univ ersity [facility] Body height 2019-07-25 19:08:00 152.4 cm [facility] Body weight 2019-07-25 19:08:00 90.493 kg [facility] BMI 2019-07-25 19:08:00 38.96 kg/m2 [facility] Systolic blood 2019-07-22 16:18:00 126 mm[Hg] Univer sity of pressure [facility] Diastolic blood 2019-07-22 16:18:00 78 mm[Hg] Unive rsity of pressure [facility] Heart rate 2019-07-22 16:18:00 100 /min [facility] Body temperature 2019-07-22 16:18:00 36.33 Linda Univ [facility] Respiratory rate 2019-07-22 16:18:00 16 /min Univ ersity of [facility] Body height 2019-07-22 16:18:00 152.4 cm [facility] Body weight 2019-07-22 16:18:00 89.869 kg [facility] BMI 2019-07-22 16:18:00 38.69 kg/m2 [facility] Systolic blood 2019-07-15 18:56:00 129 mm[Hg] Univer sity of pressure [facility] Diastolic blood 2019-07-15 18:56:00 86 mm[Hg] Unive rsity of pressure [facility] Heart rate 2019-07-15 18:56:00 101 /min [facility] Body temperature 2019-07-15 18:56:00 36.33 Linda Univ [facility] Respiratory rate 2019-07-15 18:56:00 16 /min Univ ersity [facility] Body height 2019-07-15 18:56:00 152.4 cm [facility] Body weight 2019-07-15 18:56:00 90.323 kg [facility] BMI 2019-07-15 18:56:00 38.89 kg/m2 [facility] Systolic blood 2019-07-01 17:41:00 119 mm[Hg] Univer sity of pressure [facility] Diastolic blood 2019-07-01 17:41:00 79 mm[Hg] Unive rsity of pressure [facility] Heart rate 2019-07-01 17:41:00 102 /min [facility] Body temperature 2019-07-01 17:41:00 35.94 Linda [facility] Respiratory rate 2019-07-01 17:41:00 16 /min [facility] Body height 2019-07-01 17:41:00 152.4 cm [facility] Body weight 2019-07-01 17:41:00 88.168 kg [facility] BMI 2019-07-01 17:41:00 37.96 kg/m2 [facility] Procedures Procedure Date / Time Performing Clinician Source Performed POCT TEST 2020-12-10 20:43:00 [facility] ASSIGNMENT OF BENEFITS 2020-09-16 18:49:26 Doctor Unassigned, No [facility] Name [facility] POCT TEST 2020-09-16 00:00:[address] [facility] CBC WITH DIFFERENTIAL 2019-08-06 05:07:00 Richardson [facility] POCT GLUCOSE (AUTOMATED) 2019-08-05 17:17:00 Divine Jean [facility] VENOUS CORD GAS 2019-08-05 16:20:[address] [facility] POCT GLUCOSE (AUTOMATED) 2019-08-05 11:18:00 Divine Jean [facility] POCT GLUCOSE (AUTOMATED) 2019-08-05 06:37:00 Divine Jean [facility] POCT GLUCOSE (AUTOMATED) 2019-08-05 02:18:00 Divine Jean [facility] HEPATITIS B SURFACE 2019-08-05 02:12:00 [facility] TYPE AND SCREEN 2019-08-05 02:12:[address] [facility] RHO (D) IMMUNE GLOBULIN 2019-08-05 02:12:00 Richardson [facility] GALV ONLY - SYPHILIS 2019-08-05 02:12:00 NovaMirna gallardo February [facility] IGG/IGM [facility] NON-STRESS TEST 2019-08-01 16:47:29 Lea Sen [facility] POCT URINALYSIS 2019-08-01 15:55:00 Daisy Mobley [facility] NON-STRESS TEST 2019-07-30 21:45:26 Lea Sen [facility] POCT URINALYSIS 2019-07-30 18:07:00 Daisy Mobley [facility] NON-STRESS TEST 2019-07-25 20:15:00 Lea Sen [facility] POCT URINALYSIS 2019-07-25 19:10:00 Daisy Mobley [facility] NON-STRESS TEST 2019-07-22 18:33:15 Lea Sen [facility] POCT URINALYSIS 2019-07-22 16:19:00 Daisy Mobley [facility] PATIENT QUESTIONNAIRE 2019-07-22 05:01:00 Doctor Unassigned, [facility] POCT URINALYSIS 2019-07-15 18:58:00 Daisy Mobley [facility] POCT URINALYSIS 2019-07-01 17:43:00 Daisy Mobley [facility] PATIENT QUESTIONNAIRE 2019-07-01 05:01:00 Doctor Unassigned, [facility] Encounters Start End Encounter Admission Attending Care Care Encounter Source Date/Time Date/Time Type Type Clinicians Facility Department ID 2021-05-31 2021-05-31 Outpatient R [facility] [id number] Univers 13:30:00 13:30:00 [id number] saadia [facility] 2021-05-31 2021-05-31 Outpatient R MCKINLEY [facility] [id number] Univers 13:30:00 13:30:00 LEA chowdary [facility] 2021-05-27 2021-05-27 Outpatient R [facility] [id number] Univers 15:00:00 15:00:00 [id number] ity of [facility] 2021-05-27 2021-05-27 Outpatient R [facility] [id number] Univers 15:00:00 15:00:00 ity [facility] 2021-03-04 2021-03-04 Nurse Visit, Joaquin-Rmchp Nurse [facility] 1.2 .840.114 [id number] Univers 14:51:27 15:28:00 Visit Lea Sen [employer] 350.1.13. 10 ity of REGIONAL 4.2.7.2.686 [place] as MATERNAL [phone] [facility] & CHILD [address] [place] [address] 2021-03-04 2021-03-04 Outpatient R [facility] [id number] Univers 15:00:00 15:00:00 [id number] ity [facility] 2021-03-04 2021-03-04 Outpatient R [facility] [id number] Univers 15:00:00 15:00:00 ity [facility] 2020-12-10 2020-12-10 Office Mckinley [facility] [id number] 13:54:25 15:31:43 Visit Lea Ayers [employer] DEVEL[employer] 350.1.13.10 REGIONAL 4.2.7.2.686 MATERNAL [id number] & CHILD [address] [place] [address] 2020-12-10 2020-12-10 Office Mckinley [facility] [id number] Univers 13:54:25 15:31:43 Visit Lea C [employer]EL[employer] 350.1.13.10 ity of REGIONAL 4.2.7.2.686 [place] as MATERNAL [id number] [facility] & CHILD [address] [place] [address] 2020-12-10 2020-12-10 Outpatient R BRYCE [facility] [id number] Univers 14:45:00 14:45:00 PRISCA [id number] ity o f [facility] 2020-12-10 2020-12-10 Outpatient R MCKINLEY [facility] [id number] Univers 14:15:00 14:15:00 LEA zee o ricarda [facility] 2020-12-10 2020-12-10 Outpatient R MCKINLEY [facility] [id number] Univers 14:15:00 14:15:00 LEA zee o ricarda [facility] 2020-09-16 2020-09-16 Outpatient R BRYCE [facility] [id number] Univers 14:15:00 14:15:00 PRISCA [id number] ity o ricarda [facility] 2020-09-16 2020-09-16 Outpatient R BRYCE [facility] [id number] Univers 14:15:00 14:15:00 ALDAAIDEE saadia o [facility] 2020-09-16 2020-09-16 Office Bryce [facility] 1.2.840.114 [id number] Univers 13:51:07 14:06:07 Visit Prisca Hsieh [employer]EL[employer] 350.1.13.10 ity [facility] 4.2.7.2.686 [place] MATERNAL [phone] Med ical & CHILD [address] [place] [address] 2020-09-16 2020-09-16 Orders Doctor MG 1.2.840.114 [id number] Univers 00:00:00 00:00:00 Only Unassigned, CHARLETTE 350.1.13.10 ity of [place] [facility] 4.2.7.2.686 [place] as [phone] [address] 2020-09-14 2020-09-14 Outpatient Мария WU [facility] [id number] Univers 13:45:00 13:45:00 PRISCA [id number] ity o ricarda [facility] 2019-12-24 2019-12-24 Nurse Visit, Ang-Rmchp Nurse [facility] 1.2 .840.114 [id number] Univers 15:04:20 15:34:13 Visit Lea Sen [employer]ELOPER 350.1.13. 10 ity of [facility] 4.2.7.2.686 [place] MATERNAL [phone] [facility] ical & CHILD [address] [place] [address] 2019-08-04 2019-08-06 MG Sylvester 1.2.840.114 [id number] Univers 19:15:00 14:44:00 Encounter Divine CHARLETTE 350.1.13.10 ity of HOSPITAL 4.2.7.2.686 [place] as [phone] [facility] [address] [place] 2019-08-01 2019-08-01 Routine [place], [facility] 1.2.179.758 [id number] Univers 10:39:14 11:38:43 Lea C [employer]ELOPER 350.1.13.10 ity of Visit REGIONAL 4.2.7.2.686 [place] as MATERNAL [phone] Med ical & CHILD [address] [place] [address] 2019-07-30 2019-07-30 Routine [place], [facility] 1.2.530.492 [id number] Univers 12:55:15 14:06:16 Lea C [employer]EL[employer] 350.1.13.10 ity of Visit REGIONAL 4.2.7.2.686 [place] MATERNAL [phone] [facility] ical & CHILD [address] [place] [address] 2019-07-25 2019-07-25 Routine [place], [facility] 1.2.069.376 [id number] [facility] 13:44:20 15:02:34 Lea C [employer] DEVELOPER 350.1.13.10 ity of Visit REGIONAL 4.2.7.2.686 [place] as MATERNAL [phone] Med ical & CHILD [address] [place] [address] 2019-07-22 2019-07-22 Routine [place], [facility] [id number] Univers 10:51:52 11:32:28 Lea C [employer]ELOPER 350.1.13.10 ity of Visit REGIONAL 4.2.7.2.686 [place] as MATERNAL [id number] [facility] ical & CHILD [address] [place] [address] 2019-07-22 2019-07-22 Avila [facility] 1.2.840.114 [id number] Univers 00:00:00 00:00:00 Only Unassigned, CHARLETTE 350.1.13.10 ity of [place] [facility] 4.2.7.2.686 [place] as [id number] [facility] [address] [place] 2019-07-19 2019-07-19 Abstract [facility] 1.2.840.114 [id number] Univers 00:00:00 00:00:00 Lea C [employer] DEVELOPER 350.1.13.10 ity of [facility] 4.2.7.2.686 [place] MATERNAL [id number] Med ical & CHILD [address] [place] [address] 2019-07-17 2019-07-17 Web Worker 3, [facility] Us Room UNIVERSIT 1 .2.840.114 [id number] Univers 15:35:40 16:05:40 Visit Delilah Navarrete [facility] 350.1.1 3.10 ity of [place] [facility] 4.2.7.2.686 [place] [id number] [facility] [address] [place] 2019-07-16 2019-07-16 Telephone [facility] 1.2.840.114 [id number] Univers 00:00:00 00:00:00 Lea C [employer]IOR [employer] DEVELOPER 350.1.13.10 ity of [facility] 4.2.7.2.686 [place] as MATERNAL [id number] Med ical & CHILD [address] [place] [address] 2019-07-15 2019-07-15 Routine [facility] 1.2.665.891 [id number] Univers 13:25:49 14:29:24 Lea C [employer]IOR [employer] DEVELOPER 350.1.13.10 ity of Visit [facility] 4.2.7.2.686 [place] MATERNAL [id number] Med ical & CHILD [address] [place] [address] 2019-07-04 2019-07-04 MG Man 1.2.451.786 [id number] Univers 00:00:00 00:00:00 Triage Logan CHARLETTE 350.1.13.10 it y of [facility] 4.2.7.2.686 [place] as [id number] [facility] [address] [place] 2019-07-01 2019-07-01 Routine [facility] [id number] [id number] Univers 12:21:42 12:57:48 Lea C [employer]IOR [employer] DEVELOPER 350.1.13.10 ity of Visit [facility] 4.2.7.2.686 [place] as MATERNAL [id number] Med ical & CHILD [address] [place] [address] 2019-07-01 2019-07-01 Orders Doctor MG 1.2.840.114 [id number] Univers 00:00:00 00:00:00 Only Unassigned, CHARLETTE 350.1.13.10 ity of [place] [facility] 4.2.7.2.686 [place] as [id number] [address] Results Test Description Test Time Test Comments Results Result Comments Source POCT TEST 2020-12-10 20:43:00 Test Item Value Reference Range Interpretation Comme nts POCT PREG (test code = 1605) Negative On board controls acceptable with C Line (test code = 3574) Yes POCT PREG LOT # (test code = 3575) POCT PREG TEST DATE (test code = 3576[id number] 20:43:00 Test Item Value Reference Range Interpretation Comments POCT PREG (test code = 1605) Negative On board controls acceptable with C Yes Line (test code = 3574) POCT PREG LOT # (test code = 3575) POCT PREG TEST DATE (test code = 3576) [facility] [id number] 20:43:00 Test Item Value Reference Range Interpretation Comments POCT PREG (test code = 1605) Negative On board controls acceptable with C Yes Line (test code = 3574) POCT PREG LOT # (test code = 3575) POCT PREG TEST DATE (test code = 3576) [facility] [id number] 20:49:00 Test Item Value Reference Range Interpretation Comments POCT PREG (test code = 1605) Negative On board controls acceptable with C Yes Line (test code = 3574) POCT PREG LOT # (test code = 3575) POCT PREG TEST DATE (test code = 3576) [facility] [id number] 20:49:00 Test Item Value Reference Range Interpretation Comments POCT PREG (test code = 1605) Negative On board controls acceptable with C Yes Line (test code = 3574) POCT PREG LOT # (test code = 3575) POCT PREG TEST DATE (test code = 3576) [facility] WITH [id number] 05:31:00 Test Item Value Reference Range Interpretation Comments WBC (test code = See_Comment [Automated 6690-2) message] The sy stem which generated this result transmitted reference range : 4.30 - 11.10 10*3/?L. The reference range was not used to interpret this result as normal/abnormal . RBC (test code = See_Comment L [Automated 789-8) message] The sy stem which generated this result transmitted reference range : 3.93 - 5.25 10*6/?L. The reference range was not used to interpret this result as normal/abnormal . HGB (test code = 8.4 g/dL 11.6-15 L 718-7) HCT (test code = 27.7 % 35.7-45.2 L 4544-3) MCV (test code = 76.9 fL 80.6-95.5 L 787-2) MCH (test code = 23.3 pg 25.9-32.8 L 785-6) MCHC (test code = 30.3 g/dL 31.6-35.1 L 786-4) RDW-SD (test code = 63.6 fL 39-49.9 H 43373-2) RDW-CV (test code = 23.9 % 12-15.5 H 788-0) PLT (test code = See_Comment [Automated 777-3) message] The sy stem which generated this result transmitted reference range : 166 - 358 10*3/ ?L. The reference r gema was not used to interpret this result as normal/abnormal . MPV (test code = 10.2 fL 9.5-12.9 64982-3) NRBC/100 WBC (test See_Comment [Automat ed code = 7065172373) message] The system which generated this result transmitted reference range : 0.0 - 10.0 /100 WBCs. The refer ence range was not u sed to interpret th is result as normal/abnormal . NRBC x10^3 (test code <0.01 See_Comment [Auto mated = 2139759993) message] The s ystem which generated this result transmitted reference range : 10*3/?L. The reference range was not used to interpret this result as normal/abnormal . GRAN MAT (NEUT) % 59.0 % (test code = 770-8) IMM GRAN % (test code 0.50 % = 1719209810) LYMPH % (test code = 32.9 % 736-9) MONO % (test code = 7.3 % 5905-5) EOS % (test code = 0.1 % 713-8) BASO % (test code = 0.2 % 706-2) GRAN MAT x10^3(ANC) 5.38 10*3/uL 1.88-7.09 (test code = 8634051787) IMM GRAN x10^3 (test 0.05 10*3/uL 0-0.06 code = 7678798444) LYMPH x10^3 (test code 3.01 10*3/uL 1.32-3.29 = 731-0) MONO x10^3 (test code 0.67 10*3/uL 0.33-0.92 = 742-7) EOS x10^3 (test code = <0.03 0.03-0.39 L 711-2) BASO x10^3 (test code <0.03 0.01-0.07 = 704-7) Lab Interpretation Abnormal (test code = 37316-3) [facility] [id number] 22:32:37 Test Item Value Reference Range Interpretation Comments RHIG CANDIDATE? No- see comment Patient i s not a (test code = candidate for R hIg- 5055) Patient is Rh Positive.Perfor med at [facility] Laboratory Services - [facility] Blood [address] [place] [id number] Free: [phone] A No. [id number] [facility]2019-08-05 17:18:00 Test Item Value Reference Range Interpretation Comments POCT GLU (test code = 8347196388) 93 mg/dL 70-110 Lab Interpretation (test code = Normal 50812-3) [facility] [id number] 16:51:00 Test Item Value Reference Range Interpretation Comments VENOUS BASE EXCESS, mEq/L CORD (test code = 2469653161) VENOUS PH, CORD (test 7.25-7.45 code = 5947021102) VENOUS PC02, CORD See_Comment [Automate d message] The (test code = system which ge nerated [id number]) this result tra nsmitted reference range : 27 - 49 mmHg. The refer ence range was not used to interpret this result as normal/abnormal . VENOUS PO2, CORD (test See_Comment [Aut omated message] The code = [id number]) system ich generated this result tra nsmitted reference range : 17 - 41 mmHg. The refer ence range was not used to interpret this result as normal/abnormal . VENOUS BICARBONATE, See_Comment [Automa trudy message] The CORD (test code = system whi ch generated [id number]) this result tra nsmitted reference range : 12 - 29 mEq/L. The refe rence range was not used to interpret this result as normal/abnormal . [facility] [id number] 14:14:00 Test Item Value Reference Range Interpretation Comments Syphilis IgG/IgM (test Non-reactive Non-reactive code = 67030-1) YOBANY (test code = YOBANY) Non-reactive - No serologic evidence of T. pallidum infection. Cannot exclude incubating or early syphilis. Submit a second specimen in 2-4 weeks if syphilis is clinically suspected.Equivocal - Further testing to follow.Reactive - Further testing to follow. Lab Interpretation (test Normal code = 83270-0) [facility] GLUCOSE (AUTOMATED)2019-08-05 11:20:00 Test Item Value Reference Range Interpretation Comments POCT GLU (test code = 1324487994) 99 mg/dL 70-110 Lab Interpretation (test code = Normal 42688-7) [facility] GLUCOSE (AUTOMATED)2019-08-05 06:38:00 Test Item Value Reference Range Interpretation Comments POCT GLU (test code = 5948107331) 106 mg/dL 70-110 Lab Interpretation (test code = Normal 13261-5) [facility] Surface [id number] 03:19:00 Test Item Value Reference Range Interpretation Comments HBsAg Semi-Quantitative (test code = 5195-3) [facility] Screen - ONCE [id number] 02:53:49 Test Item Value Reference Range Interpretation Comments ABO & RH (test code O POSITIVE Performe d at [facility] = 20) Laboratory Serv ices - [facility] Blood Bank3 [address] [facility] s [id number] Free: [phone] A No. [id number] IAT (test code = Negative Performed a t [facility] 1185) Laboratory [facility] Blood Bank3 [address] [facility] s [id number] Free: [phone] A No. [id number] [facility] GLUCOSE (AUTOMATED)2019-08-05 02:19:00 Test Item Value Reference Range Interpretation Comments POCT GLU (test code = 3322123377) 80 mg/dL 70-110 Lab Interpretation (test code = Normal 95384-6) [facility] NON-STRESS [id number] 16:47:57NST: cat 1, reactive/reassuring, no ctx, +accels, neg decls, moderate variability [facility] URINALYSIS W SPECIFIC [id number] 15:55:00 Test Item Value Reference Range Interpretation Comments POCT U SP GRAV (test code = 3255) . 1.005-1.025 POCT PH U (test code = 3254) . 5-8 POCT U LEUK EST (test code = 3263) . Negative - Negative POCT U NIT (test code = 3262) . Negative - Negative POCT U PROT (test code = 3259) Trace Negative - Negative POCT U GLU (test code = 3256) Neg Negative - Negative POCT U KETONE (test code = 3258) . Negative - Negative POCT U UROBILI (test code = 3260) . 0.2-1 POCT U BILI (test code = 3261) . Negative - Negative POCT U BLD (test code = 3257) . Negative - Negative POCT U COLOR (test code = 3266) POCT U APPEAR (test code = 3267) [facility] NON-STRESS [id number] 21:45:56NST: cat 1, reactive/reassuring, no ctx, +accels, neg decls, moderate variability [facility] URINALYSIS W SPECIFIC [id number] 18:09:00 Test Item Value Reference Range Interpretation Comments POCT U SP GRAV (test code = 3255) . 1.005-1.025 POCT PH U (test code = 3254) 6 mg/dl 5-8 POCT U LEUK EST (test code = 1+ Negative - Negative 3263) POCT U NIT (test code = 3262) neg Negative - Negative POCT U PROT (test code = 3259) trace Negative - Negative POCT U GLU (test code = 3256) neg Negative - Negative POCT U KETONE (test code = 3258) small Negative - Negative POCT U UROBILI (test code = 3260) . 0.2-1 POCT U BILI (test code = 3261) . Negative - Negative POCT U BLD (test code = 3257) neg Negative - Negative POCT U COLOR (test code = 3266) POCT U APPEAR (test code = 3267) [facility] NON-STRESS [id number] 20:15:36NST: cat 1, reactive/reassuring, no ctx, +accels, neg decls, moderate variability [facility] URINALYSIS W SPECIFIC [id number] 19:10:00 Test Item Value Reference Range Interpretation Comments POCT U SP GRAV (test code = 3255) . 1.005-1.025 POCT PH U (test code = 3254) . 5-8 POCT U LEUK EST (test code = 3263) . Negative - Negative POCT U NIT (test code = 3262) . Negative - Negative POCT U PROT (test code = 3259) Trace Negative - Negative POCT U GLU (test code = 3256) Trace Negative - Negative POCT U KETONE (test code = 3258) . Negative - Negative POCT U UROBILI (test code = 3260) . 0.2-1 POCT U BILI (test code = 3261) . Negative - Negative POCT U BLD (test code = 3257) . Negative - Negative POCT U COLOR (test code = 3266) POCT U APPEAR (test code = 3267) [facility] NON-STRESS [id number] 18:34:09NST: cat 1, reactive/reassuring, no ctx, +accels, neg decls, moderate variability [facility] URINALYSIS W SPECIFIC [id number] 16:19:00 Test Item Value Reference Range Interpretation Comments POCT U SP GRAV (test code = 3255) . 1.005-1.025 POCT PH U (test code = 3254) . 5-8 POCT U LEUK EST (test code = 3263) . Negative - Negative POCT U NIT (test code = 3262) . Negative - Negative POCT U PROT (test code = 3259) Neg Negative - Negative POCT U GLU (test code = 3256) Neg Negative - Negative POCT U KETONE (test code = 3258) . Negative - Negative POCT U UROBILI (test code = 3260) . 0.2-1 POCT U BILI (test code = 3261) . Negative - Negative POCT U BLD (test code = 3257) . Negative - Negative POCT U COLOR (test code = 3266) POCT U APPEAR (test code = 3267) [facility] URINALYSIS W SPECIFIC [id number] 18:58:00 Test Item Value Reference Range Interpretation Comments POCT U SP GRAV (test code = 3255) . 1.005-1.025 POCT PH U (test code = 3254) . 5-8 POCT U LEUK EST (test code = 3263) . Negative - Negative POCT U NIT (test code = 3262) . Negative - Negative POCT U PROT (test code = 3259) Trace Negative - Negative POCT U GLU (test code = 3256) Neg Negative - Negative POCT U KETONE (test code = 3258) . Negative - Negative POCT U UROBILI (test code = 3260) . 0.2-1 POCT U BILI (test code = 3261) . Negative - Negative POCT U BLD (test code = 3257) . Negative - Negative POCT U COLOR (test code = 3266) POCT U APPEAR (test code = 3267) [facility] URINALYSIS W SPECIFIC [id number] 18:58:00 Test Item Value Reference Range Interpretation Comments POCT U SP GRAV (test code = 3255) . 1.005-1.025 POCT PH U (test code = 3254) . 5-8 POCT U LEUK EST (test code = 3263) . Negative - Negative POCT U NIT (test code = 3262) . Negative - Negative POCT U PROT (test code = 3259) Trace Negative - Negative POCT U GLU (test code = 3256) Neg Negative - Negative POCT U KETONE (test code = 3258) . Negative - Negative POCT U UROBILI (test code = 3260) . 0.2-1 POCT U BILI (test code = 3261) . Negative - Negative POCT U BLD (test code = 3257) . Negative - Negative POCT U COLOR (test code = 3266) POCT U APPEAR (test code = 3267) [facility] [id number] 17:43:00 Test Item Value Reference Range Interpretation Comments POCT U SP GRAV (test code = 3255) . 1.005-1.025 POCT PH U (test code = 3254) . 5-8 POCT U LEUK EST (test code = 3263) . Negative - Negative POCT U NIT (test code = 3262) . Negative - Negative POCT U PROT (test code = 3259) Trace Negative - Negative POCT U GLU (test code = 3256) Neg Negative - Negative POCT U KETONE (test code = 3258) . Negative - Negative POCT U UROBILI (test code = 3260) . 0.2-1 POCT U BILI (test code = 3261) . Negative - Negative POCT U BLD (test code = 3257) . Negative - Negative POCT U COLOR (test code = 3266) POCT U APPEAR (test code = 3267) [facility]
--- NOTE | 2022-01-17 16:33 | RAD REPORT ---
EXAM DESCRIPTION: RAD - Elbow Right 3 View - 01/17/2022 3:39 pm CLINICAL HISTORY: Elbow pain FINDINGS: No fracture or dislocation is seen. No bone or joint abnormality is displayed
--- NOTE | 2022-01-17 16:41 | ER ---
Nurse's Notes [facility] Name: Enid Munguia Age: 26 yrs Sex: Female : 1995 Arrival Date: 01/17/2022 Time: 14:34 Bed 9 Private MD: Diagnosis: Pain in right elbow Presentation: 01/17 14:45 Chief complaint: Patient states: " I fell out of my chair and landed on my R arm." ph Reports pain to R elbow and states that she is unable to move arm. Coronavirus screen: Vaccine status: Patient reports receiving the 1st dose of the Covid vaccine. Ebola Screen: No symptoms or risks identified at this time. Initial Sepsis Screen: Does the patient meet any 2 criteria? No. Patient's initial sepsis screen is negative. Does the patient have a suspected source of infection? No. Patient's initial sepsis screen is negative. Risk Assessment: Do you want to hurt yourself or someone else? Patient reports no desire to harm self or others. Onset of symptoms was January 17, 2022. 14:45 Method Of Arrival: Ambulatory 14:45 Acuity: DERRELL 4 Triage Assessment: 16:24 General: Appears in no apparent distress. uncomfortable. ke1 16:36 Injury Description: no injury seen. ke1 Historical: - Allergies: 14:47 No Known Allergies; ph - Home Meds: 14:47 phentermine oral [Active]; Ozempic subcutaneous [Active]; ph - PMHx: 14:47 Ovarian cyst; Bipolar disorder; ADD/ADHD; ph - Immunization history:: Client reports receiving the Mikey \\T\\ Mikey single-dose vaccine. - Social history:: Smoking status: Patient denies any tobacco usage or history of. Screenin:23 Abuse screen: Denies threats or abuse. Nutritional screening: No deficits noted. ke1 Tuberculosis screening: No symptoms or risk factors identified. Fall Risk Fall in past 12 months (25 points). Secondary diagnosis (15 points) bipolar. No IV (0 pts). Ambulatory Aid- None/Bed Rest/Nurse Assist (0 pts). Gait- Normal/Bed Rest/Wheelchair (0 pts) Mental Status- Oriented to own ability (0 pts). Total Phillips Fall Scale indicates Low Risk Score (25-44 pts). Fall prevention measures have been instituted. Placed close to Nursing Station Frequent Obs/Assesments occuring. Assessment: 16:16 General: Appears uncomfortable, Behavior is calm, cooperative. Pain: Complains of pain ke1 in right elbow Pain does not radiate. Pain currently is 8 out of 10 on a pain scale. Pain began After falling out of chair. Neuro: Level of Consciousness is awake, alert, Oriented to person, place, time, situation. Cardiovascular: Capillary refill < 3 seconds Patient's skin is warm and dry. Pulses are all present. Respiratory: Airway is patent Breath sounds are clear bilaterally. GI: Abdomen is round Abd is soft and non tender X 4 quads. Musculoskeletal: Capillary refill < 3 seconds, Range of motion: limited in right arm none Swelling absent. 16:35 Reassessment: No changes from previously documented assessment. ke1 Vital Signs: 14:45 BP 136 / 94; Pulse 105; Resp 18; Temp 98.4; Pulse Ox 98% on R/A; Weight 95.25 kg; ph Height 5 ft. 2 in. (157.48 cm); 14:45 Body Mass Index 38.41 (95.25 kg, 157.48 cm) ph ED Course: 14:34 Patient arrived in ED. ds1 14:46 Triage completed. ph 14:48 Arm band placed on. ph 15:39 Elbow Right 3 View XRAY In Process Unspecified. EDMS 15:40 Catrachita [facility]C [facility] kb 15:40 Logan Tyson MD is Attending Physician. kb 15:48 Shabana Cunningham, CASSIDY is Primary Nurse. ke1 16:36 No provider procedures requiring assistance completed. ke1 17:01 Patient did not have IV access during this emergency room visit. ke1 Administered Medications: 17:00 Not Given (Patient Refused): Ibuprofen 800 mg PO once ke1 Outcome: 16:41 Discharge ordered by . kb 17:01 Discharged to home ambulatory. ke1 17:01 Condition: stable 17:01 Discharge instructions given to patient. 17:01 Patient left the ED. ke1 Signatures: Dispatcher [employer] EDMS Catrachita Munguia FNP-C FNP-Miladys Martinez ds1 Mallika Vallejo RN RN Shabana Cunningham RN RN ke1
--- NOTE | 2022-01-17 16:41 | EDPHYS ---
Physician Documentation [facility] Name: Enid Munguia Age: 26 yrs Sex: Female : 1995 Arrival Date: 01/17/2022 Time: 14:34 Bed 9 Private MD: ED Physician Logan Tyson HPI: 01/17 16:40 This 26 yrs old Female presents to ER via Ambulatory with complaints of Arm Injury. kb 16:40 The patient or guardian complains of decreased range of motion, pain, swelling, kb tenderness. The complaints affect the right elbow. Context: The problem was sustained at home, resulted from a fall, from a seated position. Onset: The symptoms/episode began/occurred just prior to arrival. Treatment prior to arrival includes: no previous treatment. Modifying factors: The symptoms are alleviated by nothing. the symptoms are aggravated by movement. Associated signs and symptoms: Pertinent positives: decreased range of motion, pain, swelling. Severity of symptoms: At their worst the symptoms were moderate, in the emergency department the symptoms are unchanged. The patient has not experienced similar symptoms in the past. The patient has not recently seen a physician. Historical: - Allergies: 14:47 No Known Allergies; ph - Home Meds: 14:47 phentermine oral [Active]; Ozempic subcutaneous [Active]; ph - PMHx: 14:47 Ovarian cyst; Bipolar disorder; ADD/ADHD; ph - Immunization history:: Client reports receiving the Mikey \T\ Mikey single-dose vaccine. - Social history:: Smoking status: Patient denies any tobacco usage or history of. ROS: 16:40 Constitutional: Negative for fever, chills, and weight loss. kb 16:40 MS/extremity: Positive for decreased range of motion, pain, swelling, tenderness, of the right elbow. 16:40 All other systems are negative. Exam: 16:39 Constitutional: This is a well developed, well nourished patient who is awake, alert, kb and in no acute distress. Head/Face: Normocephalic, atraumatic. ENT: Moist Mucous membranes Respiratory: Respirations even and unlabored. No increased work of breathing. Talking in full sentences Skin: Warm, dry with normal turgor. Normal color. Neuro: Awake and alert, GCS 15, oriented to person, place, time, and situation. Moves all extremities. Normal gait. Psych: Awake, alert, with orientation to person, place and time. Behavior, mood, and affect are within normal limits. 16:39 Musculoskeletal/extremity: Extremities: grossly normal except: noted in the right elbow: decreased ROM, pain, swelling, tenderness, ROM: limited active range of motion due to pain, in the right elbow, Circulation is intact in all extremities. Sensation intact. Vital Signs: 14:45 BP 136 / 94; Pulse 105; Resp 18; Temp 98.4; Pulse Ox 98% on R/A; Weight 95.25 kg; ph Height 5 ft. 2 in. (157.48 cm); 14:45 Body Mass Index 38.41 (95.25 kg, 157.48 cm) ph MDM: 15:40 Patient medically screened. kb 16:39 Data reviewed: vital signs, nurses notes. Data interpreted: Pulse oximetry: on room air kb is 98 %. Interpretation: normal. Counseling: I had a detailed discussion with the patient and/or guardian regarding: the historical points, exam findings, and any diagnostic results supporting the discharge/admit diagnosis, radiology results, the need for outpatient follow up, a orthopedic surgeon, to return to the emergency department if symptoms worsen or persist or if there are any questions or concerns that arise at home. 01/17 14:59 Order name: Elbow Right 3 View XRAY; Complete Time: 16:36 ph Administered Medications: 17:00 Not Given (Patient Refused): Ibuprofen 800 mg PO once ke1 Disposition Summary: 01/17/22 16:41 Discharge Ordered Location: Home kb Condition: Stable kb Diagnosis - Pain in right elbow kb Followup: kb - With: Emergency Department - When: As needed - Reason: Worsening of condition Followup: kb - With: Private Physician - When: 2 - 3 days - Reason: Recheck today's complaints, Continuance of care, Re-evaluation by your physician Discharge Instructions: - Discharge Summary Sheet kb - Musculoskeletal Pain kb Forms: - Medication Reconciliation Form kb - Thank You Letter kb - Antibiotic Education kb - Prescription Opioid Use kb Signatures: Dispatcher [employer] EDCatrachita Krishnamurthy FNP-C FNP-Mallika Ramírez RN RN ph Shabana Cunningham RN ke1
[2022-01-17 17:49] VITALS: BP 136/94; TEMP 98.4; O2SAT 98
== END 2022-01-17 17:01 | disposition home or self-care (01) ==
LOC: ER 14:31
DX: M25.521 Pain in right elbow (principal)
CPT/HCPCS: 99283

== ENCOUNTER 2022-06-17 21:49 | Emergency (ER) | payer OTHER, SELFPAY ==
--- OUTSIDE RECORDS SUMMARY | 2022-06-17 21:54 | XMS REPORT | Continuity of Care Document ---
:1995 Author Organization [facility] t Address [address] [place] [address] Care Team Providers Name Role Phone Armen DUCKWORTH Primary Care Physician Unavailable STEFAN, E Attending Clinician Unavailable Armen DUCKWORTH Attending Clinician Unavailable LOEWENTHAL Attending Clinician Unavailable LOEWENTHAL Attending Clinician Unavailable Provider, Temp Attending Clinician Unavailable LAOVN, F Attending Clinician Unavailable Faculty, Rmchp Mfm Attending Clinician Unavailable Lavon GUZMAN F Attending Clinician Mckinley FENG C Attending Clinician Doctor Unassigned, Name Attending Clinician Unavailable Payers Payer Name Policy Type Policy Number Effective Date Expiration Date S ource [place]ICAID [place] [id number] 2022 00:00:00 MEDICAID PENDING PENDING 2022 00:00:00 Problems Condition Condition Condition Status Onset Resolution Last Treating Co mments Source Name Details Category Date Date Treatment Clinician Date UTI in UTI in Disease Active Overview: Univer s 7-14 Formattin i ty of 00:00: g of this [place] 00 note Medical might be Branch different from the original. 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 Not on meds Breast Breast Disease Active 2019-11 Univers pain pain 0-21 ity of 00:00: [place] 00 Medical Branch History of History of Disease Active U nivers gestationa gestationa 1-10 it y of l diabetes l diabetes [place] prior Medica l , , Br anch currently currently in first in first trimester trimester History of History of Disease Active Overview : Univers depression depression 1-10 Formattin ity of 00:00: g of this [place] 00 note Medical might be Branch different from the original. Not on meds Obesity in Obesity in Disease Active U nivers 1-10 ity of 00:00: [place] 00 Medical Branch Herpes Herpes Disease Active Overview: Univer s infection infection 1-10 Formattin i ty of in in 00:00: g of this [place] 00 note Medi gonzalo might be Branch different from the original. No outbreak since 2018 Allergies, Adverse Reactions, Alerts Allergy Allergy Status Severity Reaction(s) Onset Inactive Treating Comm ents Source Name Type Date Date Clinician NO KNOWN Drug Active Univers ALLERGIE Class ity of S [place] [facility] Social History Social Habit Start Date Stop Date Quantity Comments Source ASSERTION 2022-05-01 University of 00:00:00 [place] [facility] History SDOH University o f Alcohol Frequency [place] M edical Branch History SDOH University o f Alcohol Std [place] Medical Drinks Branch History SDOH University o f Alcohol Binge [place] Medic al Branch History of Passive smoker University of tobacco use [facility] Exposure to 2022-06-06 2022-06-16 Not sure University of SARS-CoV-2 00:00:00 14:50:00 [place] [facility] (event) Branch Alcohol intake 2022-06-16 2022-06-16 Ex-drinker [facility] 00:00:00 00:00:00 (finding) [facility] Tobacco use and 2022-06-09 2022-06-09 Smokeless tobacco Un iversity of exposure 00:00:00 00:00:[address] [facility] Alcohol Comment 2022-05-25 2022-05-25 stopped for Universi ty of 00:00:00 00:00:00 [facility] Sex Ass[birth year] At [birth year] Universit y of 00:00:00 00:00:00 [facility] Smoking Status Start Date Stop Date Source Never smoked tobacco [facility] Medications Ordered Filled Start Stop Current Ordering Indication Dosage Frequency Signature Comments Components Source Medication Medication Date Date Medication? Clinician (SIG) Name Name quetiapine 2021- No Take by Un becca fumarate 06-13 mouth. ity of (SEROQUEL 17:05: 00:00 [place] ORAL) 37 :00 Medical Branch semaglutide 2021- No inject Uni vers (OZEMPIC) 1 06-1318 under the it y of mg/dose (2 17:05: 00:00 skin. [place] mg/1.5 mL) 34 :00 Medical PnIj Branch phentermine 2021- No 37.5mg Take 37.5 Univers 37.5 mg 18 07-18 mg by ity of capsule 17:05: 00:00 mouth [place] 28 :00 every Medical morning. Branch aspirin 81 0 Yes [id number] 81mg Take 1 U nivers mg EC 7-18 tablet by ity of tablet 00:00: mouth in [place] 00 the Medical morning. Branch Start at 12 weeks gestation aspirin 81 2021-0 Yes [id number] 81mg Take 1 U nivers mg EC 7-18 tablet by ity of tablet 00:00: mouth in [place] 00 the Medical morning. Branch Start at 12 weeks gestation proMETHazin Yes [id number] 25mg Take 1 Univers e 25 mg 7-14 tablet by ity of tablet 00:00: mouth [place] 00 every 6 Medical (six) Branch hours as needed for Nausea and Vomiting (N/V). proMETHazin 0 Yes [id number] 25mg Take 1 Univers e 25 mg 7-14 tablet by ity of tablet 00:00: mouth [place] 00 every 6 Medical (six) Branch hours as needed for Nausea and Vomiting (N/V). proMETHazin 0 Yes [id number] 25mg Take 1 Univers e 25 mg 7-14 tablet by ity of tablet 00:00: mouth [place] 00 every 6 Medical (six) Branch hours as needed for Nausea and Vomiting (N/V). proMETHazin 0 Yes [id number] 25mg Take 1 Univers e 25 mg 7-14 tablet by ity of tablet 00:00: mouth [place] 00 every 6 Medical (six) Branch hours as needed for Nausea and Vomiting (N/V). Nitrofurant 0 Yes [id number] 100mg Take 1 Univers oin&Nit. 7-05 capsule by ity o f Macrocryst 00:00: mouth [place] (MACROBID) 00 (two) Medical 100 mg times Branch capsule daily. Nitrofurant 0 Yes [id number] 100mg Take 1 Univers oin&Nit. 7-05 capsule by ity o f Macrocryst 00:[place]: [place] (MACROBID) 00 (two) Medical 100 mg times Branch capsule daily. Nitrofurant 0 Yes [id number] 100mg Take 1 Univers oin&Nit. 7-05 capsule by ity o f Mac[place]ryst 00:[place]: [place] (MACROBID) 00 (two) Medical 100 mg times Branch capsule daily. Nitrofurant 0 Yes [id number] 100mg Take 1 Univers oin&Nit. 7-05 capsule by ity o f Macrocryst 00:[place]: [place] (MACROBID) 00 (two) Medical 100 mg times Branch capsule daily. Nitrofurant 2021-0 Yes [id number] 100mg Take 1 Univers oin&Nit. 7-05 capsule by ity o f Mac[place]ryst 00:00: [place] (MACROBID) 00 (two) Medical 100 mg times Branch capsule daily. phentermine 0 Yes 37.5mg Take 37.5 Univers 37.5 mg 6-29 mg by ity of capsule 14:54: mouth [place] 10 every Medical morning. Branch semaglutide 0 Yes inject Univ ers (OZEMPIC) 1 6-29 under the ity of mg/dose (2 14:54: skin. [place] mg/1.5 mL) 10 [facility] phentermine Yes 37.5mg Take 37.5 Univers 37.5 mg 6-29 mg by ity of capsule 14:54: mouth [place] 10 every Medical morning. Branch semaglutide Yes inject Univ ers (OZEMPIC) 1 6-29 under the ity of mg/dose (2 14:54: skin. [place] mg/1.5 mL) 10 [facility] phentermine 0 Yes 37.5mg Take 37.5 Univers 37.5 mg 6-29 mg by ity of capsule 14:54: mouth [place] 10 every Medical morning. Branch semaglutide Yes inject Univ ers (OZEMPIC) 1 6-29 under the ity of mg/dose (2 14:54: skin. [place] mg/1.5 mL) 10 [facility] quetiapine 2019-11 Yes Take by Uni vers fumarate 0-21 mouth. ity of (SEROQUEL 14:44: [place] ORAL) 44 [facility] quetiapine 2019-11 Yes Take by Uni vers fumarate 0-21 mouth. ity of (SEROQUEL 14:44: [place] ORAL) 44 [facility] quetiapine 2019-11 Yes Take by Uni vers fumarate 0-21 mouth. ity of (SEROQUEL 14:44: [place] ORAL) [address] [place] [address] Immunizations Ordered Immunization Filled Immunization Date Status Commen ts Source Name Name HPV9 2019-09-17 Completed University of 00:00:00 [facility] HPV9 2019-09-17 Completed University of 00:00:00 [facility] HPV9 2019-09-17 Completed University of 00:00:00 [facility] HPV9 2019-09-17 Completed University of 00:00:00 [facility] HPV9 2019-09-17 Completed University of 00:00:00 [facility] TDAP 2019-05-20 Completed University of 00:00:00 [facility] TDAP 2019-05-20 Completed University of 00:00: [facility] TDAP 2019-05-20 Completed University of 00:00:00 [facility] TDAP 2019-05-20 Completed University of 00:00:00 [facility] TDAP 2019-05-20 Completed University of 00:00:00 [facility] HPV9 2018-07-04 Completed University of 00:00:00 [facility] HPV9 2018-07-04 Completed University of 00:00:00 [facility] HPV9 2018-07-04 Completed University of 00:00:00 [facility] HPV9 2018-07-04 Completed University of 00:00:00 [facility] HPV9 2018-07-04 Completed University of 00:00:00 [facility] HPV9 2018-04-05 Completed University of 00:00:00 [facility] HPV9 2018-04-05 Completed University of 00:00:00 [facility] HPV9 2018-04-05 Completed University of 00:00:00 [facility] HPV9 2018-04-05 Completed University of 00:00:00 [facility] HPV9 2018-04-05 Completed University of 00:00:00 [facility] TDAP 2016-11-23 Completed University of 00:00:00 [facility] TDAP 2016-11-23 Completed University of 00:00:00 [facility] TDAP 2016-11-23 Completed University of 00:00:00 [facility] TDAP 2016-11-23 Completed University of 00:00:00 [facility] TDAP 2016-11-23 Completed University of 00:00:00 [facility] Meningococcal 2010-07-16 Completed University of Polysaccharide 00:00:00 [place] Medi gonzalo (groups A, C, Y and Branc h W-135) conjugate vaccine (MCV4P) TDAP 2010-07-16 Completed University of 00:00:00 [facility] Varicella 2010-07-16 Completed University of (varivax)(chicken 00:00:00 [place] M edical pox) Branch Meningococcal 2010-07-16 Completed University of Polysaccharide 00:00:00 [place] Medi gonzalo (groups A, C, Y and Branc h W-135) conjugate vaccine (MCV4P) TDAP 2010-07-16 Completed University of 00:00:00 [facility] Varicella 2010-07-16 Completed University of (varivax)(chicken 00:00:00 [place] M edical pox) Branch Meningococcal 2010-07-16 Completed University of Polysaccharide 00:00:00 [place] Medi gonzalo (groups A, C, Y and Branc h W-135) conjugate vaccine (MCV4P) TDAP 2010-07-16 Completed University of 00:00:00 [facility] Varicella 2010-07-16 Completed University of (varivax)(chicken 00:00:00 [place] M edical pox) Branch Meningococcal 2010-07-16 Completed University of Polysaccharide 00:00:00 [facility] (groups A, C, Y and Branc h W-135) conjugate vaccine (MCV4P) TDAP 2010-07-16 Completed University of 00:00:00 [facility] Varicella 2010-07-16 Completed University of (varivax)(chicken 00:00:00 [place] M edical pox) Branch Meningococcal 2010-07-16 Completed University of Polysaccharide 00:00:00 [facility] (groups A, C, Y and Branc h W-135) conjugate vaccine (MCV4P) TDAP 2010-07-16 Completed University of 00:00:00 [facility] Varicella 2010-07-16 Completed University of (varivax)(chicken 00:00:00 [place] M edical pox) Branch DTAP 2003-11-18 Completed University of 00:00:00 [facility] Hep B, Adol or Pedi 2003-11-18 Completed Unive rsity of Dosage 00:00:00 [facility] MMR 2003-11-18 Completed University of 00:00:00 [facility] DTAP 2003-11-18 Completed University of 00:00:00 [facility] Hep B, Adol or Pedi 2003-11-18 Completed Unive rsity of Dosage 00:00:00 [facility] MMR 2003-11-18 Completed University of 00:00:00 [facility] DTAP 2003-11-18 Completed University of 00:00:00 [facility] Hep B, Adol or Pedi 2003-11-18 Completed Unive rsity of Dosage 00:00:00 [facility] MMR 2003-11-18 Completed University of 00:00:00 [facility] DTAP 2003-11-18 Completed University of 00:00:00 [facility] Hep B, Adol or Pedi 2003-11-18 Completed Unive rsity of Dosage 00:00:00 [facility] MMR 2003-11-18 Completed University of 00:00:00 [facility] DTAP 2003-11-18 Completed University of 00:00:00 [facility] Hep B, Adol or Pedi 2003-11-18 Completed Unive rsity of Dosage 00:00:00 [facility] MMR 2003-11-18 Completed University of 00:00:00 [facility] DTAP 2003-08-26 Completed University of 00:00:00 [facility] Hep B, Adol or Pedi 2003-08-26 Completed Unive rsity of Dosage 00:00:00 [facility] MMR 2003-08-26 Completed University of 00:00:00 [facility] Polio (IPV/OPV) 2003-08-26 Completed Universit y of 00:00:00 [facility] Varicella 2003-08-26 Completed University of (varivax)(chicken 00:00:00 [place] M edical pox) Branch DTAP 2003-08-26 Completed University of 00:00:00 [facility] Hep B, Adol or Pedi 2003-08-26 Completed Unive rsity of Dosage 00:00:00 [facility] MMR 2003-08-26 Completed University of 00:00:00 [facility] Polio (IPV/OPV) 2003-08-26 Completed Universit y of 00:00:00 [facility] Varicella 2003-08-26 Completed University of (varivax)(chicken 00:00:00 [place] M edical pox) Branch DTAP 2003-08-26 Completed University of 00:00:00 [facility] Hep B, Adol or Pedi 2003-08-26 Completed Unive rsity of Dosage 00:00:00 [facility] MMR 2003-08-26 Completed University of 00:00:00 [facility] Polio (IPV/OPV) 2003-08-26 Completed Universit y of 00:00:00 [facility] Varicella 2003-08-26 Completed University of (varivax)(chicken 00:00:00 [place] M edical pox) Branch DTAP 2003-08-26 Completed University of 00:00:00 [facility] Hep B, Adol or Pedi 2003-08-26 Completed Unive rsity of Dosage 00:00:00 [facility] MMR 2003-08-26 Completed University of 00:00:00 [facility] Polio (IPV/OPV) 2003-08-26 Completed Universit y of 00:00:00 [facility] Varicella 2003-08-26 Completed University of (varivax)(chicken 00:00:00 [place] M [place]ical pox) Branch DTAP 2003-08-26 Completed University of 00:00:00 [facility] Hep B, Adol or Pedi 2003-08-26 Completed Unive rsity of Dosage 00:00:00 [facility] MMR 2003-08-26 Completed University of 00:00:00 [facility] Polio (IPV/OPV) 2003-08-26 Completed Universit y of 00:00:00 [facility] Varicella 2003-08-26 Completed University of (varivax)(chicken 00:00:00 [place] M edical pox) Branch Hep B, Adol or Pedi 1998-03-17 Completed Unive rsity of Dosage 00:00:00 [facility] HIB 3 Dose Schedule 1998-03-17 Completed Unive rsity of 00:00:00 [facility] Polio (IPV/OPV) 1998-03-17 Completed Universit y of 00:00:00 [facility] Hep B, Adol or Pedi 1998-03-17 Completed Unive rsity of Dosage 00:00:00 [facility] HIB 3 Dose Schedule 1998-03-17 Completed Unive rsity of 00:00:00 [facility] Polio (IPV/OPV) 1998-03-17 Completed Universit y of 00:00:00 [facility] Hep B, Adol or Pedi 1998-03-17 Completed Unive rsity of Dosage 00:00:00 [facility] HIB 3 Dose Schedule 1998-03-17 Completed Unive rsity of 00:00:00 [facility] Polio (IPV/OPV) 1998-03-17 Completed Universit y of 00:00:00 [facility] Hep B, Adol or Pedi 1998-03-17 Completed Unive rsity of Dosage 00:00:00 [facility] HIB 3 Dose Schedule 1998-03-17 Completed Unive rsity of 00:00:00 [facility] Polio (IPV/OPV) 1998-03-17 Completed Universit y of 00:00:00 [facility] Hep B, Adol or Pedi 1998-03-17 Completed Unive rsity of Dosage 00:00:00 [facility] HIB 3 Dose Schedule 1998-03-17 Completed Unive rsity of 00:00:00 [facility] Polio (IPV/OPV) 1998-03-17 Completed Universit y of 00:00:00 [facility] DTAP 1998-02-25 Completed University of 00:00:00 [place] [facility] DTAP 1998-02-25 Completed University of 00:00:00 [place] [facility] DTAP 1998-02-25 Completed University of 00:00:00 [facility] DTAP 1998-02-25 Completed University of 00:00:00 [facility] DTAP 1998-02-25 Completed University of 00:00:00 [facility] Vital Signs Vital Name Observation Time Observation Value Comments Source Body temperature 2022-06-16 19:51:00 36.44 [address] [facility] Respiratory rate 2022-06-16 19:51:00 18 /min Univ ersity of [facility] Body height 2022-06-16 19:51:00 157.[address] [facility] Body weight 2022-06-16 19:51:[address] [facility] BMI 2022-06-16 19:51:00 31.86 kg/m2 Universi ty of [facility] Systolic blood 2022-06-16 19:51:00 131 mm[Hg] Univer sity of pressure [facility] Diastolic blood 2022-06-16 19:51:00 78 mm[Hg] Unive rsity of pressure [facility] Heart rate 2022-06-16 19:51:00 85 /min Universi ty of [facility] Systolic blood 2022-06-09 13:20:00 128 mm[Hg] Univer sity of pressure [facility] Diastolic blood 2022-06-09 13:20:00 89 mm[Hg] Unive rsity of pressure [facility] Heart rate 2022-06-09 13:20:00 84 /min Universi ty of [facility] Body temperature 2022-06-09 13:20:00 36.33 Linda Univ ersity of [facility] Respiratory rate 2022-06-09 13:20:00 18 /min Univ ersity of [facility] Body height 2022-06-09 13:20:00 157.[address] [facility] Body weight 2022-06-09 13:20:00 77.764 kg Universi ty of [place] [facility] BMI 2022-06-09 13:20:00 [facility]36 [facility] Procedures Procedure Date / Time Performed Performing Clinician Wayne e POCT URINALYSIS 2022-06-16 19:52:00 Lea Duckworth [facility] POCT URINALYSIS 2022-06-09 13:21:00 Lea Duckworth [facility] DIABETES TESTING 2022-06-09 05:01:00 Doctor Unassigned, No Unive [facility] REPORTS Name [facility] Encounters Start End Encounter Admission Attending Care Care Encounter Source Date/Time Date/Time Type Type Clinicians Facility Department ID 2022-07-14 2022-07-14 Outpatient R AVILES, [facility] [id number] Univers 14:15:00 14:15:00 PRASAD [id number] [facility] 2022-06-30 2022-06-30 Outpatient R MCKINLEY, [facility] [id number] Univers 08:00:00 08:00:00 LEA [id number] ity o f [facility] 2022-06-30 2022-06-30 Outpatient R AKINSIPE, [facility] [id number] Univers 08:00:00 08:00:[address] [facility] 2022-06-27 2022-06-27 Outpatient R [facility] [id number] Univers 13:30:00 13:30:00 [id number] [facility] 2022-06-27 2022-06-27 Outpatient P [facility] [id number] Univers 13:30:00 [facility] 2022-06-20 Outpatient R [facility] [id number] Univers 09:45:00 09:45[facility]-20 2022-06-20 Outpatient R [facility] [id number] Univers 09:45:00 09:45:00 [id number] [facility] 2022-06-16 2022-06-16 Outpatient R REHAN HERNANDEZ [facility] [id number] Univers 14:30:00 15:46:57 REHAN HERNANDEZ [facility] 2022-06-16 2022-06-16 Routine Provider, [facility] [id number] Univers 14:30:00 15:46:57 Rehan Hernandez MACHINERY ENGINEER [id number] ity of Visit REGIONAL [id number] [place] as MATERNAL [id number] [facility] CHILD [address] [place] [address] 2022-06-16 2022-06-16 Outpatient R [facility] [id number] Univers 14:30:00 14:30:00 [id number] [facility] 2022-06-13 2022-06-13 Outpatient R LAVON [facility] [id number] Univers 15:30:00 17:16:08 DIONICIO [facility] 2022-06-13 2022-06-13 Telemedici Faculty, Joaquin Amado [facility] [id number] Univers 15:30:00 16:00:00 ne Visit Dionicio Doll MACHINERY ENGINEER [id number] ity of REGIONAL [id number] [place] as MATERNAL [id number] [address] 2022-06-13 2022-06-13 Outpatient R [facility] [id number] Univers 15:30:00 15:30:00 [id number] [facility] 2022-06-09 2022-06-09 Outpatient R MCKINLEY [facility] [id number] Univers 08:00:00 08:47:[address] [facility] 2022-06-09 2022-06-09 [facility] [id number] Univers 08:00:00 08:47:57 Lea Ayers MACHINERY ENGINEER [id number] ity of Visit REGIONAL [id number] [place] as MATERNAL [id number] [facility] & CHILD [address] [place] [address] 2022-06-09 2022-06-09 Orders Doctor MG [id number] Univers 00:00:00 00:00:00 Only Unassigned, CHARLETTE [id number] ity of [place] [facility] [id number] [place] as [id number] [address] 2022-05-31 2022-05-31 Telephone [facility] [id number] Univers 00:00:00 00:00:00 Lea Ayers MACHINERY ENGINEER [id number] ity of [facility] [id number] [place] as MATERNAL [phone] Med ical & CHILD [address] [place], [place] [id number] 2022-05-25 2022-05-25 [facility] [id number] 13:45:00 14:49:41 [address] o f [facility] 2020-12-10 2020-12-10 Office [facility] [phone] [id number] 13:54:25 15:31:43 Visit Lea Ayers MACHINERY ENGINEER [id number] [facility] [id number] MATERNAL [id number] & CHILD [address] [place] [address] Results Test Description Test Time Test Comments Results Result Comments Source POCT URINALYSIS W SPECIFIC GRAVITY 2022-06-16 19:52:00 Test Item Value Reference Range Interpretation Comme nts POCT U SP GRAV (test code = 3255) * 1.005-1.025 POCT PH U (test code = 3254) * 5-8 POCT U LEUK EST (test code = 3263) * Negative - Negative POCT U NIT (test code = 3262) * Negative - Negative POCT U PROT (test code = 3259) trace Negative - Negative POCT U GLU (test code = 3256) negative Negative - Negative POCT U KETONE (test code = 3258) * Negative - Negative POCT U UROBILI (test code = 3260) * 0.2-1 POCT U BILI (test code = 3261) * Negative - Negative POCT U BLD (test code = 3257) * Negative - Negative POCT U COLOR (test code = 3266) * POCT U APPEAR (test code = 3267) [facility] [id number] 13:21:00 Test Item Value Reference Range Interpretation Comments [...] POCT U COLOR (test code = 3266) . POCT U APPEAR (test code = 3267) [facility]
[2022-06-17 22:46] LABS: Urine Blood Negative (Negative); Urine Glucose Negative (Negative); Urine Protein Negative (Negative); Urine Specific Gravity 1.025 (1.005-1.030)
[2022-06-17 22:55] LABS: Urine Specific Gravity/Preg 1.025 (1.005-1.030)
[2022-06-17 23:03] LABS: Absolute Lymphocytes (CBC) 2.6 K/uL (0.7-4.9); Hematocrit 33.9 % (36.0-45.0); Lymphocytes % 28.7 % (15.3-44.8); MCV 78.2 fL (80-100); MPV 7.9 fL (7.6-11.3); RBC Red Blood Cell Count 4.33 M/uL (3.86-4.86)
[2022-06-17 23:49] LABS: Potassium 4.3 mmol/L (3.5-5.1)
[2022-06-18] MEDS ORDERED: CEPHALEXIN 250 MG CAP ONE (01:32)
--- NOTE | 2022-06-18 01:52 | ER ---
Nurse's Notes [facility] Name: Enid Munguia Age: 26 yrs Sex: Female : 1995 Arrival Date: 06/17/2022 Time: 21:53 Bed 5 Private MD: Diagnosis: UTI/ Urinary tract infection, site not specified Presentation: 06/17 21:57 Chief complaint: Patient states: lower left pelvic pain that started two days ago, she bh1 is 9 weeks . Coronavirus screen: Vaccine status: Patient reports receiving the 1st dose of the Covid vaccine. At this time, the client does not indicate any symptoms associated with coronavirus-19. Ebola Screen: Patient negative for fever greater than or equal to 101.5 degrees Fahrenheit, and additional compatible Ebola Virus Disease symptoms. Initial Sepsis Screen: Does the patient meet any 2 criteria? No. Patient's initial sepsis screen is negative. Does the patient have a suspected source of infection? No. Patient's initial sepsis screen is negative. Risk Assessment: Do you want to hurt yourself or someone else? Patient reports no desire to harm self or others. Onset of symptoms was June 15, 2022. 21:57 Method Of Arrival: Ambulatory [facility] 21:57 Acuity: DERRELL 4 bh1 Triage Assessment: 22:01 General: Appears in no apparent distress. Behavior is calm, cooperative, appropriate bh1 for age. Pain: Complains of pain in right femoral area and right inguinal area Pain currently is 8 out of 10 on a pain scale. 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 - Social history:: Smoking status: Patient denies any tobacco usage or history of. Screenin:47 Abuse screen: Denies threats or abuse. Denies injuries from another. Nutritional lp1 screening: No deficits noted. Tuberculosis screening: No symptoms or risk factors identified. Fall Risk None identified. Assessment: 22:44 General: Appears in no apparent distress. Behavior is calm, cooperative, appropriate lp1 for age. Pain: Complains of pain in right inguinal area Aggravated by increased activity. Neuro: Level of Consciousness is awake, alert, obeys commands. Cardiovascular: Patient's skin is warm and dry. Respiratory: Respiratory effort is even, unlabored. GI: Abdomen is non-distended. : Reports recently treated for UTI. EENT: No signs and/or symptoms were reported regarding the EENT system. Derm: Skin is pink, warm \T\ dry. Musculoskeletal: No deficits noted. 06/18 00:50 Reassessment: Patient appears in no apparent distress at this time. Patient is alert, lp1 oriented x 3, equal unlabored respirations, skin warm/dry/pink. Vital Signs: 06/17 21:57 BP 116 / 72; Pulse 101; Resp 18; Temp 98.1(TE); Pulse Ox 99% on R/A; Weight 78.93 kg 1 (R); Height 5 ft. 2 in. (157.48 cm) (R); Pain 8/10; 06/18 00:50 BP 109 / 77; Pulse 81; Resp 16; Pulse Ox 99% on R/A; lp1 06/17 21:57 Body Mass Index 31.82 (78.93 kg, 157.48 cm) [facility] ED Course: 06/17 21:53 Patient arrived in ED. ja2 21:55 Salomón Pena PA is PHCP. m 21:55 Aaron Chahal MD is Attending Physician. [facility] 22:01 Triage completed. 1 22:01 Arm band placed on right wrist. 1 22:05 Simon Valenzuela, CASSIDY is Primary Nurse. as6 22:30 Patient has correct armband on for positive identification. lp1 22:40 Initial lab(s) drawn, by me, sent to lab. Missed attempt(s): 22 gauge in right lp1 antecubital area. 06/18 00:13 US 1st Trimest Single 1st Fetus In Process Unspecified. EDMS 01:57 No provider procedures requiring assistance completed. Patient did not have IV access lp1 during this emergency room visit. Administered Medications: 01:27 Drug: Cephalexin 500 mg Route: PO; lp1 01:57 Follow up: Response: No adverse reaction lp1 Medication: 06/17 22:46 VIS not applicable for this client. lp1 Outcome: 06/18 01:51 Discharge ordered by . sp3 01:57 Discharged to home ambulatory. lp1 01:57 Condition: good 01:57 Discharge instructions given to patient, Instructed on discharge instructions, follow up and referral plans. medication usage, Demonstrated understanding of instructions, follow-up care, medications, Prescriptions given X 1. 01:57 Patient left the ED. lp1 Signatures: Dispatcher [employer] EDMS Salomón Pena PA PA jmm Pena, Laura, CASSIDY RN lp1 Aaron Chahal MD MD sp3 Evy Liu Ashby, RN RN as6 Melissa Goodwin RN RN 1 Corrections: (The following items were deleted from the chart) 06/17 22:02 22:01 PMHx: ADD/ADHD; [place] [id number]
--- NOTE | 2022-06-18 01:52 | EDPHYS ---
Physician Documentation [facility] Name: Enid Munguia Age: 26 yrs Sex: Female : 1995 Arrival Date: 06/17/2022 Time: 21:53 Bed 5 Private MD: ED Physician Aaron Chahal HPI: 06/17 22:20 This 26 yrs old Female presents to ER via Ambulatory with complaints of Flank Pain. jmm 22:20 The patient complains of pain in the right flank. This is a currently 8 weeks jmm presents emerged department with pelvic pain beginning approximately 2 days ago worsening today. Denies fever, vomiting,. States she has had ongoing diarrhea since she was became . Denies fever or chills.. 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 - Social history:: Smoking status: Patient denies any tobacco usage or history of. ROS: 22:20 Constitutional: Negative for fever, chills, and weight loss, Cardiovascular: Negative jmm for chest pain, palpitations, and edema, Respiratory: Negative for shortness of breath, cough, wheezing, and pleuritic chest pain. 22:20 Abdomen/GI: Positive for abdominal pain. 22:20 Back: Positive for flank pain. 22:20 : Positive for pelvic pain. 22:20 All other systems are negative. Exam: 22:20 Constitutional: This is a well developed, well nourished patient who is awake, alert, jmm and in no acute distress. Head/Face: atraumatic. Eyes: EOMI, no conjunctival erythema appreciated ENT: Moist Mucus Membranes Neck: Trachea midline, Supple Chest/axilla: Normal chest wall appearance and motion. Cardiovascular: Regular rate and rhythm. No edema appreciated Respiratory: Normal respirations, no respiratory distress appreciated 22:20 Back: Normal ROM Skin: General appearance color normal MS/ Extremity: Moves all extremities, no obvious deformities appreciated, no edema noted to the lower extremities Neuro: Awake and alert Psych: Behavior is normal, Mood is normal, Patient is cooperative and pleasant 22:20 Abdomen/GI: Inspection: abdomen appears normal, Bowel sounds: normal, Palpation: soft, mild abdominal tenderness, in the suprapubic area. Vital Signs: 21:57 BP 116 / 72; Pulse 101; Resp 18; Temp 98.1(TE); Pulse Ox 99% on R/A; Weight 78.93 kg 1 (R); Height 5 ft. 2 in. (157.48 cm) (R); Pain 8/10; 06/18 00:50 BP 109 / 77; Pulse 81; Resp 16; Pulse Ox 99% on R/A; lp1 06/17 21:57 Body Mass Index 31.82 (78.93 kg, 157.48 cm) [facility] MDM: 06/17 22:20 Patient medically screened. [facility] 06/18 01:10 Data reviewed: vital signs, nurses notes. Transition of care: After a detail discussion panchito of the patient's case, care is transferred to Aaron Chahal MD. 06/17 22:20 Order name: Abo/rh Typing; Complete Time: 23:57 [facility] 06/17 22:20 Order name: Basic Metabolic Panel [facility] 06/17 22:20 Order name: CBC with Diff; Complete Time: 23:22 [facility] 06/17 22:20 Order name: Quantitative Hcg [facility] 06/17 22:46 Order name: Urine Dipstick-Ancillary; Complete Time: 23:22 EDIL 06/17 22:47 Order name: Urine --Ancillary (enter results); Complete Time: 23:22 ds4 06/17 22:20 Order name: Labs collected and sent; Complete Time: 22:44 [facility] 06/17 22:20 Order name: NPO; Complete Time: 22:44 [facility] 06/17 22:20 Order name: Urine Dipstick-Ancillary (obtain specimen); Complete Time: 22:44 [facility] 06/17 22:20 Order name: US 1st Trimest Single 1st Fetus [facility] Administered Medications: 01:27 Drug: Cephalexin 500 mg Route: PO; lp1 01:57 Follow up: Response: No adverse reaction lp1 Disposition Summary: 06/18/22 01:51 Discharge Ordered Location: Home sp3 Condition: Stable sp3 Diagnosis - UTI/ Urinary tract infection, site not specified sp3 Followup: panchito - With: Private Physician - When: 1 - 2 days - Reason: Recheck today's complaints, Continuance of care, Re-evaluation by your physician Discharge Instructions: - Discharge Summary Sheet panchito - and Urinary Tract Infection panchito Forms: - Medication Reconciliation Form sp3 - Thank You Letter sp3 - Antibiotic Education sp3 - Prescription Opioid Use sp3 Prescriptions: - Cephalexin 500 mg Oral Capsule - take 1 capsule by ORAL route every 8 hours for 10 days; 30 capsule; Refills: 0, m Product Selection Permitted Signatures: Dispatcher [employer] EDMS Salomón Pena PA PA jmm Pena, Laura, RN RN 1 Aaron Chahal MD MD 3 Melissa Goodwin RN RN 1 Corrections: (The following items were deleted from the chart) 06/17 22:02 22:01 PMHx: ADD/ADHD; [place] [id number]
[2022-06-18 02:48] VITALS: TEMP 98.1; O2SAT 99
[2022-06-18 02:53] VITALS: BP 109/77
--- NOTE | 2022-06-18 13:44 | RAD REPORT ---
EXAM DESCRIPTION: US - 1St Trimest Single 1St Fetus - 06/18/2022 12:11 am CLINICAL HISTORY: 26 years, Female, pelvic pain COMPARISON: None. TECHNIQUE: Utilizing a curved array transducer, real-time ultrasound evaluation of the female pelvis was performed. Color Doppler imaging was used to assess vascular flow. FINDINGS: The uterus is anteverted and measures 9.9 x 6.9 x 7.7 cm. A gestational sac demonstrate no rmal shape and configuration with multiple measurements giving a ultrasonographic mean measurement of 3.87 cm corresponding to a ultrasonographic gestational age of 9 weeks and 1 day, a pole was i dentified with a mean crown-rump length of 2.15 cm corresponding to a ultrasonographic gestational ag e of 8 weeks and 4 days, this gave a ultrasonographic gestational age of 8 weeks and 4 days with an e stimated date of delivery of January 23, 2023. Cardiac activity was documented at 196 bpm. The right ovary measured 3.3 x 2.4 x 1.9 cm, the left ovary measures 2.6 x 1.6 x 1.8 cm. There is nor mal vascular flow and spectral waveforms with no evidence for torsion. No free fluid was identified in the posterior cul-de-sac, no adnexal masses seen. IMPRESSION: Single living intrauterine corresponding to a ultrasonographic gestational age of 8 weeks and 4 days. No adnexal masses identified. Electronically signed by: Junaid Senior MD 06/18/2022 1:12 AM CDT Due to temporary technical issues with the PACS/Fluency reporting system, reports are being signed by the in house radiologists without review as a courtesy to insure prompt reporting. The interpreting radiologist is fully responsible for the content of the report.
== END 2022-06-18 01:57 | disposition home or self-care (01) ==
LOC: ER 21:49
DX: O23.41 Unspecified infection of urinary tract in pregnancy, first trimester (principal); N39.0 Urinary tract infection, site not specified; Z3A.08 8 weeks gestation of pregnancy
CPT/HCPCS: 36415; 76801; 80048; 81003; 81025; 84702; 85025; 86900; 86901; 99284

== ENCOUNTER 2023-01-19 22:08 | Emergency (ER) | payer OTHER ==
--- OUTSIDE RECORDS SUMMARY | 2023-01-19 22:22 | XMS REPORT | Continuity of Care Document ---
:1995 Author Organization [facility] t Address [address] [place] [address] Care Team Providers Name Role Phone ROGELIO SEN Primary Care Physician Unavailable LISA ASIF Attending Clinician Unavailable LISA ASIF Attending Clinician Unavailable Lisa Asif MD Attending Clinician Jose Carlos GUZMAN, Yessi Attending Clinician Chalino CARRANZA, Eric Ruggiero Attending Clinician Tommie Perez MD Attending Clinician Elyssa Harper MD Attending Clinician [phone] MG ERICKSON Attending Clinician Unavailable ROGELIO SEN Attending Clinician Unavailable Rogelio Jo Attending Clinician [phone] CHERIE QUIÑONEZ Attending Clinician Unavailable ISIDRO HOLDEN Attending Clinician Unavailable Risk, Fkr-Oytxu-Ca/High Attending Clinician Unavailable Isidro lAy Attending Clinician Ultrasound, Ang-Mfm Attending Clinician Unavailable Dionicio Doll MD Attending Clinician DIONICIO DOLL Attending Clinician Unavailable Doctor Unassigned, Kirby Attending Clinician Unavailable Mikey ESPINOZA, Sonia Attending Clinician Logan Bustamante DO Attending Clinician Provider, Michelle Temrubi Attending Clinician Unavailable Cherie Quiñonez CNM Attending Clinician Nathan Harper MD, Sonali Attending Clinician [phone] NATHAN HARPER, SONALI Attending Clinician Unavailable Vero Dowd APN Attending Clinician PRASAD AVILES Attending Clinician Unavailable Mary DIVISION HUMAN RESOURCES MANAGER, Sydney Attending Clinician 3, [facility] Room Attending Clinician Unavailable SYDNEY HERNANDEZ Attending Clinician Unavailable Faculty, Joaquin Amado [facility] Attending Clinician Unavailable Nika Montero RN Attending Clinician Unavailable Visit, Michelle Nurse Attending Clinician Unavailable PRISCA WU Attending Clinician Unavailable Prisca Montero Attending Clinician Divine Jean MD Attending Clinician Rosalba GUZMAN, Delilah Ahmadi Attending Clinician Mookie Cormier Attending Clinician Jameel BENJAMIN, Logan Attending Clinician Unavailable LISA ASIF Admitting Clinician Unavailable Everardo GUZMAN, Lisa Conrad Admitting Clinician Ted GUZMAN, Divine Admitting Clinician Payers Payer Name Policy Type Policy Number Effective Date Expiration Date Bette rosas [facility] STAR [id number] 2022 00:00:00 MEDICAID PENDING PENDING 2022 00:00:00 Problems Condition Condition Condition Status Onset Resolution Last Treating Co mments Source Name Details Category Date Date Treatment Clinician Date 39 weeks 39 weeks Disease Active Unive rs gestation gestation 2-19 ity of of of 00:00: [place] 00 [facility] Encounter Encounter Disease Active Uni vers for for 2-19 [place] of induction [place] 00:[place] of labor of labor 00 Medica l Branch Anemia of Anemia of Disease Active Uni vers mother in mother in 1-31 ity of , , 00:00[place] antepartum antepartum 00 Me dical Branch Tetanus, Tetanus, Disease Active Unive rs diphtheria diphtheria 1-11 it y of , and , and 00:00: [place] acellular acellular 00 [facility] pertussis pertussis Bran ch (Tdap) (Tdap) vaccinatio vaccinatio n declined n declined UTI in UTI in Disease Active Overview: Univer s 7-14 Formattin i ty of 00:00: g of this note Medical might be Branch different from the original. 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 Not on meds Depression Depression Disease Active Overview : Univers affecting affecting 1-10 Formattin i ty of 00:00: g of this [place] 00 note Medical might be Branch different from the original. Not on meds History of History of Disease Active Overview : Univers depression depression 1-10 Formattin ity of 00:00: g of this [place] 00 note Medical might be Branch different from the original. Not on meds Obesity in Obesity in Disease Active U nivers 1-10 ity of 00:00: [place] 00 Medical Branch Herpes Herpes Disease Active Overview: Univer s infection infection 1-10 Formattin i ty of in in 00:00: g of this [place] 00 note Medi gonzalo might be Branch different from the original. No outbreak since 2018 Allergies, Adverse Reactions, Alerts Allergy Allergy Status Severity Reaction(s) Onset Inactive Treating Comm ents Source Name Type Date Date Clinician NO KNOWN Drug Active Univers ALLERGIE Class ity of S [facility] Social History Social Habit Start Date Stop Date Quantity Comments Source ASSERTION 2022-05-01 [facility] 00:00:00 [facility] History SDOH University o f Alcohol Frequency [place] M edical [place] History SDOH University o f Alcohol Std [place] Medical Drinks [place] History [facility] o f Alcohol Binge [place] Medic al [place] History of Passive smoker [facility] tobacco use [facility] Alcohol intake 2023-01-16 2023-01-16 Ex-drinker [facility] 00:00:00 00:00:00 (finding) [facility] Exposure to 2023-01-05 2023-01-15 Not sure [facility] SARS-CoV-2 00:00:00 07:31:00 [facility] (event) [place] Tobacco use and 2022-06-09 2022-06-09 Smokeless tobacco Un iversity of exposure 00:00:00 00:00:00 non-user [facility] Alcohol Comment 2022-05-25 2022-05-25 stopped for Universi ty of 00:00:00 00:00:00 [facility] Sex Assigned At [birth year] Universit y of 00:00:00 00:00:00 [facility] Smoking Status Start Date Stop Date Source Never smoked tobacco [facility] Medications Ordered Filled Start Stop Current Ordering Indication Dosage Frequency Signature Comments Components Source Medication Medication Date Date Medication? Clinician (SIG) Name Name Sliding Yes Subcutaneo Univ ers Scale 2-21 us, AC+HS, ity of Insulin-Reg 03:00: First dose [place] ular + Fsbg 00 on Mon Medica l Testing 01/16/23 at [place] 2100, Until Discontinu ed, Routine dextrose Yes 250mL 250 mL, IV Un becca 10% (D10W) 2-21 Infusion, ity of bolus 01:39: PRN - SEE [place] infusion 31 INSTRUCTIO Medic al 250 mL , [place] Administer over 60 Minutes, Other, If blood glucose is < or = 70 mg/dL and patient is unable to swallow or has mental status changes, Starting on 01/16/23 at 1939
If blood glucose is < or = 70 mg/dL and patient is unable to swallow or has mental status changes (Give glucagon order if patient needs fluid restrictio n): IF IV access available: Dextrose 10%. 1. 125 mL (? bag) of D10W IV infusion - equivalent to 12.5 g dextrose 2. Blood glucose - draw blood glucose 15 minutes after D10W Administra tion. 3. If blood glucose is < 80 mg/dL, repeat.
glucagon Yes 1mg 1 mg, Univers (GLUCAGEN 2-21 Intramuscu ity of DIAGNOSTIC 01:39: [place] PRN, [place] KIT) 21 Starting Medical injection 1 on Mon Branch 01/16/23 at 1939, Until Discontinu ed, LAZARUS, Blood Glucose < or = 70 mg/dL and patient is NPO, unable to swallow or has mental changes. Yes [id number] 1{tbl} Take 1 Univers [id number] 2-21 tablet by ity of fum-folic 00:00: mouth in [facility] ([facility]) 00 the Medical 27 mg iron- morning. Bran ch 1 mg folic tablet docusate Yes [id number] 200mg Take 2 U nivers 100 mg 2-21 capsules ity of capsule 00:00: by mouth [place] 00 once daily Medical as needed Branch for Constipati on. ferrous Yes [id number] 325mg Take 1 Un becca sulfate 325 2-21 tablet by ity of mg (65 mg 00:00: [facility] Medical tablet morning. Branch ibuprofen Yes [id number] 600mg Take 1 Univers 600 mg 2-21 tablet by ity of tablet 00:00: mouth [place] 00 every 6 Medical (six) Branch hours as needed (Pain). Take with food or milk. Yes [id number] 1{tbl} Take 1 Univers [id number] 2-21 tablet by ity of fum-folic 00:00: [facility] () [facility] the Medical 27 mg iron- morning. Bran ch 1 mg folic tablet docusate Yes [id number] 200mg Take 2 U nivers 100 mg 2-21 capsules ity of capsule 00:00: by mouth [place] 00 once daily Medical as needed Branch for Constipati on. ferrous 0 Yes [id number] 325mg Take 1 Un becca sulfate 325 2-21 tablet by ity of mg (65 mg 00:00: mouth in [facility] iron) 00 the Medical tablet morning. Branch ibuprofen Yes [id number] 600mg Take 1 Univers 600 mg 2-21 tablet by ity of tablet 00:00: mouth [place] 00 every 6 Medical (six) Branch hours as needed (Pain). Take with food or milk. Yes [id number] 1{tbl} Take 1 Univers [id number] 2-21 tablet by ity of fum-folic 00:00: mouth in [facility] () 00 the Medical 27 mg iron- morning. Bran ch 1 mg folic tablet docusate Yes [id number] 200mg Take 2 U nivers 100 mg 2-21 capsules ity of capsule 00:00: by mouth [place] 00 once daily Medical as needed Branch for Constipati on. ferrous Yes [id number] 325mg Take 1 Un becca sulfate 325 2-21 tablet by ity of mg (65 mg 00:00: mouth in [facility] iron) 00 the Medical tablet morning. Branch ibuprofen Yes [id number] 600mg Take 1 Univers 600 mg 2-21 tablet by ity of tablet 00:00: mouth [place] 00 every 6 Medical (six) Branch hours as needed (Pain). Take with food or milk. butalbital- Yes 1{tbl} 1 tablet, Univers acetaminoph 2-20 Oral, ity of en-caff 14:45: Q4HPRN, [place] (ESGIC) 00 Starting Medical 50-325-40 on Mon Branch mg tablet 1 01/16/23 at tablet 0845, Until Discontinu ed, Routine, Headache proCHLORper 2022- No 10mg 10 mg, IV Univers azine 2-20 - Piggyback, ity of (COMPAZINE) 14:45: 15:19 at 100 [place] as 10 mg in 00 :00 mL/hr Medical NaCl 0.9% Administer Bran ch (NS) over 30 piggyback Minutes, ONCE, 1 dose, On Mon01/16/23 at 0845, Routine rho(D) 2022-0 Yes 300ug 300 mcg, Univer s immune 2-20 Intramuscu ity of globulin 10:55: lar, ONCE, [place] as (RHOGAM) 23 For 1 Medical syringe 300 dose, Branch mcg Conditiona l, Routine diphenhydrA 2022-0 Yes 25mg 25 mg, Univ ers MINE 2-20 Slow IV ity of (BENADRYL) 10:54: Push, [place] injection 43 Q6HPRN, Medical 25 mg Starting Branch on Mon01/16/23 at 0454, Until Discontinu ed, Routine, Itching ibuprofen 2022-0 Yes 600mg 600 mg, Univ ers (IBU) 2-20 Oral, ity of tablet 600 10:52: Q6HPRN, [place] mg 48 Starting Medical on Mon01/16/23 at 0452, Until Discontinu ed, Routine, Pain (scale 4-6) acetaminoph 2022-0 Yes 650mg 650 mg, Un becca en 2-20 Oral, ity of (TYLENOL) 10:52: Q6HPRN, [place] tablet 650 48 Starting Medic al mg on Mon01/16/23 at 0452, Until Discontinu ed, Routine, Pain (scale 1-3) diphenhydrA 2022-0 Yes 25mg 25 mg, [facility] [place] [facility] ers MINE 2-20 Oral, ity of (BENADRYL) 10:52: Q6HPRN, [place] tablet 25 48 Starting Medica l mg on Mon01/16/23 at 0452, Until Discontinu ed, Routine, Sleep, Itching ondansetron 2022-0 Yes 4mg 4 mg, Slow Univers (ZOFRAN 2-20 IV Push, ity of (PF)) 10:52: Q8HPRN, [place] injection 4 48 Starting Medi gonzalo mg on Mon01/16/23 at 0452, Until Discontinu ed, Routine, Nausea and Vomiting (N/V) simethicone 2022-0 Yes 160mg 160 mg, Un becca (GAS RELIEF 2-20 Oral, ity of (SIMETHICON 10:52: PC+HSPRN, [place] E)) 48 Starting Medical chewable on Mon Branch tablet 160 01/16/23 at mg 0452, Until Discontinu ed, Routine, Gas docusate 0 Yes 200mg 200 mg, Unive rs (COLACE) 2-20 Oral, ity of capsule 200 10:52: QDAILYPRN, [place] mg 48 Starting Medical on Mon Branch 01/16/23 at 0452, Until Discontinu ed, Routine, Constipati on magnesium 0 Yes 30mL 30 mL, Univer s hydroxide 2-20 Oral, ity of (MILK OF 10:52: QDAILYPRN, [place] as MAGNESIA) 48 Starting Medica l 400 mg/5 mL on Mon Branch suspension 01/16/23 at 30 mL 0452, Until Discontinu ed, Routine, Constipati on benzocaine- Yes Topical, Un becca menthol 2-20 PRN, ity of (DERMOPLAST 10:52: Starting [place] ) 20-0.5 % 48 on [facility] Medical topical 01/16/23 at Branch spray 0452, Until Discontinu ed, Routine, Perineum discomfort acetaminoph 0 2022- No 650mg 650 mg, U nivers en -20 02-20 Oral, ity of (TYLENOL) 06:22: 08:30 Q6HPRN, [place] tablet 650 23 :06 Starting Medic al mg on Mon Branch 01/16/23 at 0022, Until Mon01/16/23 at 0230, Routine, Pain (scale 1-3) ropivacaine 0 Yes Epidural, U nivers 0.2 % 2-20 CONTINUOUS ity of (NAROPIN 01:28: PRN, [place] (PF)) 00 Starting Medical epidural on [place] Branch infusion 01/15/23 at 1928, Until Discontinu ed, Routine, Intra-op ropivacaine 0 Yes Epidural, U nivers 0.2 % 2-20 CONTINUOUS ity of (NAROPIN 01:28: PRN, [place] (PF)) 00 Starting Medical epidural on [place] Branch infusion 01/15/23 at 1928, Until Discontinu ed, Routine, Intra-op ropivacaine 2022-0 Yes Epidural, U nivers 0.2 % 2-20 CONTINUOUS ity of (NAROPIN 01:28: PRN, [place] ()) 00 Starting Medical epidural on [place] Branch infusion 01/15/23 at 1928, Until Discontinu ed, Routine, Intra-op ropivacaine Yes Epidural, U nivers 0.2 % 2-20 CONTINUOUS ity of (NAROPIN 01:28: PRN, [place] ()) 00 Starting Medical epidural on [place] Branch infusion 01/15/23 at 1928, Until Discontinu ed, Routine, Intra-op ropivacaine 2022- No Epidural, Univers 0.2 % 2-20 02-20 CONTINUOUS ity of (NAROPIN 01:28: 08:38 PRN, [place] ()) 00 :23 Starting Medical epidural on [place] Branch infusion 01/15/23 at 1928, Until Discontinu ed, Routine, Intra-op ropivacaine 2022-2022- No Epidural, Univers 0.2 % 2-20 02-20 CONTINUOUS ity of (NAROPIN 01:28: 08:38 PRN, [place] ()) 00 :23 Starting Medical epidural on [place] Branch infusion 01/15/23 at 1928, Until Discontinu ed, Routine, Intra-op lidocaine-e 2022-0 Yes Intraderma Univers pinephrine 2-20 l, ONCE ity of (XYLOCAINE 01:22: INTRA [place] W/EPINEPHRI 00 PROCEDURE, Me dical NE) 1.5 Starting Branch %-1:200,000 on Sun injection 01/15/23 at 1922, Until Discontinu ed, Routine, Intra-op lidocaine-e 2022-0 Yes Intraderma Univers pinephrine 2-20 l, ONCE ity of (XYLOCAINE 01:22: INTRA [place] W/EPINEPHRI 00 PROCEDURE, Me dical NE) 1.5 Starting Branch %-1:200,000 on Sun injection 01/15/23 at 1922, Until Discontinu ed, Routine, Intra-op lidocaine-e 2022-0 Yes Intraderma Univers pinephrine 2-20 l, ONCE ity of (XYLOCAINE 01:22: INTRA [place] W/EPINEPHRI 00 PROCEDURE, Me dical NE) 1.5 Starting Branch %-1:200,000 on Sun injection 01/15/23 at 1922, Until Discontinu ed, Routine, Intra-op lidocaine-e Yes Intraderma Univers pinephrine 2-20 l, ONCE ity of (XYLOCAINE 01:22: INTRA [place] W/EPINEPHRI 00 PROCEDURE, Me dical NE) 1.5 Starting Branch %-1:200,000 on Sun injection 01/15/23 at 1922, Until Discontinu ed, Routine, Intra-op lidocaine-e 2022- No Intraderma Univers pinephrine 2-20 02-20 l, ONCE ity o f (XYLOCAINE 01:22: 08:38 INTRA [place] W/EPINEPHRI 00 :23 PROCEDURE, Me dical NE) 1.5 Starting Branch %-1:200,000 on Sun injection 01/15/23 at 1922, Until Discontinu ed, Routine, Intra-op lidocaine-e 2022- No Intraderma Univers pinephrine - 02-20 l, ONCE ity o f (XYLOCAINE 01:22: 08:38 INTRA [place] W/EPINEPHRI 00 :23 PROCEDURE, Me dical NE) 1.5 Starting Branch %-1:200,000 on Sun injection 01/15/23 at 1922, Until Discontinu ed, Routine, Intra-op sodium 2022- No 30mL 30 mL, Univers citrate-cit 01-16- Oral, ity of melanie acid 00:31: 01:02 PRE-PROCED [place] (BICITRA) 06 :00 URE ONCE, Medic al 500-334 1 dose, Branch mg/5 mL Starting solution 30 on Sun mL 01/15/23 at 1831, Until Discontinu ed, Routine, Surgery/Pr ocedure lactated 2022- No 500mL at 999 Unive rs ringers IV 01-16 02-20 mL/hr, 500 it y of infusion 00:31: 00:51 mL, IV [place] 500 mL 06 :20 Infusion, Medical PRN - SEE Branch INSTRUCTIO NS, 1 dose, Starting on 01/15/23 at 1831, Until Discontinu ed, Routine proMETHazin 2022- No 25mg 25 mg, IV Univers e 01-15 Piggyback, ity of (PHENERGAN) 19:45: 19:48 at 200 [place] as 25 mg in NS 00 :06 mL/hr Medical 50 mL IV Administer Branc h piggyback over 15 (CNR) Minutes, ONCE, 1 dose, On [place] 01/15/23 at 1345, Routine nalbuphine 2022- No 10mg 10 mg, Univ ers (NUBAIN) 01-15 Intravenou ity of injection 19:45: 19:12 s, ONCE, 1 [place] 10 mg 00 :00 dose, On Medical [place] Branch 01/15/23 at 1345, Routine oxytocin 2022- No 2mU/min at 2-40 Un becca (PITOCIN) 01-15 02-20 mL/hr, IV ity of 30 units in 16:01: 08:30 Infusion, [place] NS 500 mL 59 :06 TITRATE, Medica l IV infusion Starting Bran ch on 01/15/23 at 1001, Until Mon01/16/23 at 0230, LAZARUS Sliding 2022- No Subcutaneo Uni vers Scale 01-1520 us, ity of Insulin - 15:02: 08:30 SEE-INSTRU [place] Regular + 06 :08 CTIONS, Medical Fsbg Starting Branch Testing on 01/15/23 at 0902, Until Mon01/16/23 at 0230, Routine D5W-LR IV 2022- No 1000mL at 1-125 U nivers infusion 01-15 02-20 mL/hr, IV ity o f 1,000 mL 15:00: 08:30 Infusion, [place] as 41 :06 TITRATE, Medical Starting Branch on 01/15/23 at 0900, Until Mon01/16/23 at 0230, Routine ferrous Yes [id number] 325mg Take 1 Un becca sulfate 325 1-31 tablet by ity of mg (65 mg 00:00: mouth [place] iron) 00 the Medical tablet morning Branch and 1 tablet in the evening. ascorbic Yes 500mg Take 1 U nivers acid, 1-31 tablet by ity of vitamin C, 00:00: mouth in [place] as 500 mg 00 the Medical tablet morning Branch and 1 tablet at noon and 1 tablet in the evening. ferrous Yes [id number] 325mg Take 1 Un becca sulfate 325 1-31 tablet by ity of mg (65 mg 00:00: mouth [place] iron) 00 the Medical tablet morning Branch and 1 tablet in the evening. ascorbic 2023-0 Yes [id number] 500mg Take 1 U nivers acid, 1-31 tablet by ity of vitamin C, 00:00: mouth in [place] as 500 mg 00 the Medical tablet morning Branch and 1 tablet at noon and 1 tablet in the evening. ferrous 2022-0 Yes [id number] 325mg Take 1 Un becca sulfate 325 1-31 tablet by ity of mg (65 mg 00:00: mouth [place] iron) 00 the Medical tablet morning Branch and 1 tablet in the evening. ascorbic 2022-0 Yes [id number] 500mg Take 1 U nivers acid, 1-31 tablet by ity of vitamin C, 00:00: mouth in [place] as 500 mg 00 the Medical tablet morning Branch and 1 tablet at noon and 1 tablet in the evening. ferrous 2022-0 Yes [id number] 325mg Take 1 Un becca sulfate 325 1-31 tablet by ity of mg (65 mg 00:00: mouth [place] iron) 00 the Medical tablet morning Branch and 1 tablet in the evening. ascorbic 2022-0 Yes [id number] 500mg Take 1 U nivers acid, 1-31 tablet by ity of vitamin C, 00:00: mouth in [place] as 500 mg 00 the Medical tablet morning Branch and 1 tablet at noon and 1 tablet in the evening. ferrous 2022-0 Yes [id number] 325mg Take 1 Un becca sulfate 325 1-31 tablet by ity of mg (65 mg 00:00: [place] iron[place] 00 the Medical tablet morning Branch and 1 tablet in the evening. ascorbic 202-0 Yes [id number] 500mg Take 1 U nivers acid, 1-31 tablet by ity of vitamin C, 00:00: mouth in [place] 500 mg 00 the Medical tablet morning Branch and 1 tablet at noon and 1 tablet in the evening. ferrous 2023-0 Yes [id number] 325mg Take 1 Un becca sulfate 325 1-31 tablet by ity of mg (65 mg 00:00: [place] iron[place] 00 the Medical tablet morning Branch and 1 tablet in the evening. ascorbic 2023-0 Yes [id number] 500mg Take 1 U nivers acid, 1-31 tablet by ity of vitamin C, 00:00: mouth in [place] 500 mg 00 the Medical tablet morning Branch and 1 tablet at noon and 1 tablet in the evening. ferrous 2022-0 Yes [id number] 325mg Take 1 Un becca sulfate 325 1-31 tablet by ity of mg (65 mg 00:00: [place] iron[place] 00 the Medical tablet morning Branch and 1 tablet in the evening. ascorbic 2022-0 Yes [id number] 500mg Take 1 U nivers acid, 1-31 tablet by ity of vitamin C, 00:00: mouth in [place] 500 mg 00 the Medical tablet morning Branch and 1 tablet at noon and 1 tablet in the evening. ferrous 2022-0 Yes [id number] 325mg Take 1 Un becca sulfate 325 1-31 tablet by ity of mg (65 mg 00:00: [place] iron[place] 00 the Medical tablet morning Branch and 1 tablet in the evening. ascorbic 2022-0 Yes [id number] 500mg Take 1 U nivers acid, 1-31 tablet by ity of vitamin C, 00:00: mouth in [place] as 500 mg 00 the Medical tablet morning Branch and 1 tablet at noon and 1 tablet in the evening. ferrous 2022-0 Yes [id number] 325mg Take 1 Un becca sulfate 325 1-31 tablet by ity of mg (65 mg 00:00: [place] iron[place] 00 the Medical tablet morning Branch and 1 tablet in the evening. ascorbic 2022-0 Yes [id number] 500mg Take 1 U nivers acid, 1-31 tablet by ity of vitamin C, 00:00: mouth in [place] 500 mg 00 the Medical tablet morning Branch and 1 tablet at noon and 1 tablet in the evening. ferrous 2022-0 Yes [id number] 325mg Take 1 Un becca sulfate 325 1-31 tablet by ity of mg (65 mg 00:00: [place] iron[place] 00 the Medical tablet morning Branch and 1 tablet in the evening. ascorbic 202-0 Yes [id number] 500mg Take 1 U nivers acid, 1-31 tablet by ity of vitamin C, 00:00: mouth in [place] 500 mg 00 the Medical tablet morning Branch and 1 tablet at noon and 1 tablet in the evening. ferrous 2022-0 Yes [id number] 325mg Take 1 Un becca sulfate 325 1-31 tablet by ity of mg (65 mg 00:00: [place] iron[place] 00 the Medical tablet morning Branch and 1 tablet in the evening. ascorbic 0 Yes [id number] 500mg Take 1 U nivers acid, -31 tablet by ity of vitamin C, 00:00: mouth in [place] as 500 mg 00 the Medical tablet morning Branch and 1 tablet at noon and 1 tablet in the evening. ferrous 0 Yes [id number] 325mg Take 1 Un becca sulfate 325 1-31 tablet by ity of mg (65 mg 00:00: [place] iron[place] 00 the Medical tablet morning Branch and 1 tablet in the evening. ascorbic Yes [id number] 500mg Take 1 U nivers acid, 1-31 tablet by ity of vitamin C, 00:00: mouth in [place] as 500 mg 00 the Medical tablet morning Branch and 1 tablet at noon and 1 tablet in the evening. ferrous 2022- No [id number] 325mg Take 1 U nivers sulfate 325 12-27 tablet by it y of mg (65 mg 00:00: 00:00 mouth in [place] iron) 00 :00 the Medical tablet morning Branch and 1 tablet in the evening. ascorbic 2022-0 2022- No [id number] 500mg Take 1 Univers acid, 12-27 tablet by ity of vitamin C, 00:00: 00:00 mouth in [place] 500 mg 00 :00 the Medical tablet morning Branch and 1 tablet at noon and 1 tablet in the evening. ferrous 2022- No [id number] 325mg Take 1 U nivers sulfate 325 12-27 tablet by it y of mg (65 mg 00:00: 00:00 mouth in [place] iron) 00 :00 the Medical tablet morning Branch and 1 tablet in the evening. ascorbic 2022-0 2022- No [id number] 500mg Take 1 Univers acid, 12-27 tablet by ity of vitamin C, 00:00: 00:00 mouth in [place] 500 mg 00 :00 the Medical tablet morning Branch and 1 tablet at noon and 1 tablet in the evening. acyclovir Yes [id number] 400mg Take 1 Univers 400 mg 1-30 tablet by ity of tablet 00:00: mouth in [address] Medical morning [place] and 1 tablet at noon and 1 tablet in the evening. acyclovir 2023-0 Yes [id number] 400mg Take 1 Univers 400 mg 1-30 tablet by ity of tablet 00:00: mouth in [place] [address] [facility] morning [place] and 1 tablet at noon and 1 tablet in the evening. acyclovir 2023-0 Yes [id number] 400mg Take 1 Univers 400 mg 1-30 tablet by ity of tablet 00:00: mouth in [address] morning [place] and 1 tablet at noon and 1 tablet in the evening. acyclovir 2023-0 Yes [id number] 400mg Take 1 Univers 400 mg 1-30 tablet by ity of tablet 00:00: mouth in [address] morning [place] and 1 tablet at noon and 1 tablet in the evening. acyclovir 2023-0 Yes [id number] 400mg Take 1 Univers 400 mg 1-30 tablet by ity of tablet 00:00: mouth in [address] morning [place] and 1 tablet at noon and 1 tablet in the evening. acyclovir 2023-0 Yes [id number] 400mg Take 1 Univers 400 mg 1-30 tablet by ity of tablet 00:00: mouth in [address] morning [place] and 1 tablet at noon and 1 tablet in the evening. acyclovir 2023-0 Yes [id number] 400mg Take 1 [facility] 400 mg 1-30 tablet by [facility] of tablet 00:00: mouth in [address] morning [place] and 1 tablet at noon and 1 tablet in the evening. acyclovir 2023-0 Yes [id number] 400mg Take 1 [facility] 400 mg 1-30 tablet by it[facility] of tablet 00:00: mouth in [address] morning [place] and 1 tablet at noon and 1 tablet in the evening. acyclovir 2023-0 Yes [id number] 400mg Take 1 [facility] 400 mg 1-30 tablet by ity of tablet 00:00: mouth in [address] morning [place] and 1 tablet at noon and 1 tablet in the evening. acyclovir 2023-0 Yes [id number] 400mg Take 1 [facility] 400 mg 1-30 tablet by ity of tablet 00:00: mouth in [address] morning [place] and 1 tablet at noon and 1 tablet in the evening. acyclovir 2023-0 Yes [id number] 400mg Take 1 [facility] 400 mg 1-30 tablet by ity of tablet 00:00: mouth in [place] 00 [facility] and 1 tablet at noon and 1 tablet in the evening. acyclovir 2022-0 Yes [id number] 400mg Take 1 [facility] 400 mg 1-30 tablet by ity of tablet 00:00: mouth in [place] 00 [facility] and 1 tablet at noon and 1 tablet in the evening. acyclovir 2022-0 Yes [id number] 400mg Take 1 [facility] 400 mg 1-30 tablet by ity of tablet 00:00: mouth in [place] 00 [facility] and 1 tablet at noon and 1 tablet in the evening. acyclovir 2022-0 Yes [id number] 400mg Take 1 [facility] 400 mg 1-30 tablet by ity of tablet 00:00: mouth in [place] 00 [facility] and 1 tablet at noon and 1 tablet in the evening. acyclovir 2022-2022- No [id number] 400mg Take 1 [facility] 400 mg 1-30 02-21 tablet by ity of tablet 00:00: 00:00 mouth in [place] 00 :00 [facility] and 1 tablet at noon and 1 tablet in the evening. acyclovir 2022-0 3- No [id number] 400mg Take 1 [facility] 400 mg 1-30 02-21 tablet by ity of tablet 00:00: 00:00 mouth in [place] 00 :00 [facility] and 1 tablet at noon and 1 tablet in the evening. acyclovir 2021-11- Yes [id number] 800mg Take 1 [facility] 800 mg 2-12 12-18 tablet by ity of tablet 00:00: 05:59 mouth in [place] 00 :00 [facility] and 1 tablet in the evening. Do all this for 5 days. acyclovir 2021-11- No [id number] 800mg Take 1 [facility] 800 mg 2-12 12-18 tablet by ity of tablet 00:00: 05:59 mouth in [place] 00 :00 [facility] and 1 tablet in the evening. Do all this for 5 days. aspirin 81 2021-0 Yes [id number] 81mg Take 1 [facility] nivers mg EC 7-18 tablet by ity of tablet 00:00: mouth in [place] 00 [facility]. Branch Start at 12 weeks gestation aspirin 81 2022-0 Yes [id number] 81mg Take 1 [facility] n[facility] mg EC 7-18 tablet by ity of tablet 00:00: mouth in [place] 00 the Medical morning. Branch Start at 12 weeks gestation aspirin 81 2022-0 Yes [id number] 81mg Take 1 [facility] mg EC 7-18 tablet by ity of tablet 00:00: mouth in [place] 00 the Medical morning. Branch Start at 12 weeks gestation aspirin 81 2022-0 Yes [id number] 81mg Take 1 [facility] mg EC 7-18 tablet by ity of tablet 00:00: mouth in [place] 00 the Medical morning. Branch Start at 12 weeks gestation aspirin 81 2022-0 Yes [id number] 81mg Take 1 [facility] mg EC 7-18 tablet by ity of tablet 00:00: mouth in [place] 00 the Medical morning. Branch Start at 12 weeks gestation aspirin 81 2022-0 Yes [id number] 81mg Take 1 [facility] mg EC 7-18 tablet by ity of tablet 00:00: mouth in [place] 00 the Medical morning. Branch Start at 12 weeks gestation aspirin 81 2022-0 Yes [id number] 81mg Take 1 [facility] mg EC 7-18 tablet by ity of tablet 00:00: mouth in [place] 00 the Medical morning. Branch Start at 12 weeks gestation aspirin 81 2022-0 Yes [id number] 81mg Take 1 [facility] mg EC 7-18 tablet by ity of tablet 00:00: mouth in [place] 00 the Medical morning. Branch Start at 12 weeks gestation aspirin 81 2022-0 Yes [id number] 81mg Take 1 [facility] mg EC 7-18 tablet by ity of tablet 00:00: mouth in [place] 00 the Medical morning. Branch Start at 12 weeks gestation aspirin 81 2022-0 Yes [id number] 81mg Take 1 [facility] mg EC 7-18 tablet by ity of tablet 00:00: mouth in [place] 00 the Medical morning. Branch Start at 12 weeks gestation aspirin 81 2022-0 Yes [id number] 81mg Take 1 [facility] mg EC 7-18 tablet by ity of tablet 00:00: mouth in [place] 00 the Medical morning. Branch Start at 12 weeks gestation aspirin 81 2022-0 Yes [id number] 81mg Take 1 [facility] mg EC 7-18 tablet by ity of tablet 00:00: mouth in [place] 00 the Medical morning. Branch Start at 12 weeks gestation aspirin 81 2022-0 Yes [id number] 81mg Take 1 [facility] mg EC 7-18 tablet by ity of tablet 00:00: mouth in [place] 00 the Medical morning. Branch Start at 12 weeks gestation aspirin 81 2022-0 Yes [id number] 81mg Take 1 [facility] mg EC 7-18 tablet by ity of tablet 00:00: mouth in [place] 00 the Medical morning. Branch Start at 12 weeks gestation aspirin 81 2022-0 Yes [id number] 81mg Take 1 [facility] mg EC 7-18 tablet by ity of tablet 00:00: mouth in [place] 00 the Medical morning. Branch Start at 12 weeks gestation aspirin 81 2022-0 Yes [id number] 81mg Take 1 [facility] mg EC 7-18 tablet by ity of tablet 00:00: mouth in [place] 00 the Medical morning. Branch Start at 12 weeks gestation aspirin 81 2022-0 Yes [id number] 81mg Take 1 [facility] mg EC 7-18 tablet by ity of tablet 00:00: mouth in [place] 00 the Medical morning. Branch Start at 12 weeks gestation aspirin 81 2022-0 Yes [id number] 81mg Take 1 [facility] mg EC 7-18 tablet by ity of tablet 00:00: mouth in [place] 00 the Medical morning. Branch Start at 12 weeks gestation aspirin 81 2022-0 Yes [id number] 81mg Take 1 [facility] mg EC 7-18 tablet by ity of tablet 00:00: mouth in [place] 00 the Medical morning. Branch Start at 12 weeks gestation aspirin 81 2022-0 Yes [id number] 81mg Take 1 [facility] mg EC 7-18 tablet by ity of tablet 00:00: mouth in [place] 00 the Medical morning. Branch Start at 12 weeks gestation aspirin 81 2022-0 Yes [id number] 81mg Take 1 [facility] mg EC 7-18 tablet by ity of tablet 00:00: mouth in [place] 00 the Medical morning. Branch Start at 12 weeks gestation aspirin 81 2022-0 Yes [id number] 81mg Take 1 [facility] mg EC 7-18 tablet by ity of tablet 00:00: mouth in [place] 00 the Medical morning. Branch Start at 12 weeks gestation aspirin 81 2022-0 Yes [id number] 81mg Take 1 [facility] mg EC 7-18 tablet by ity of tablet 00:00: mouth in [place] 00 the Medical morning. Branch Start at 12 weeks gestation aspirin 81 2022-0 Yes [id number] 81mg Take 1 [facility] mg EC 7-18 tablet by ity of tablet 00:00: mouth in [place] 00 the Medical morning. Branch Start at 12 weeks gestation aspirin 81 2022-0 Yes [id number] 81mg Take 1 [facility] mg EC 7-18 tablet by ity of tablet 00:00: mouth in [place] 00 the Medical morning. Branch Start at 12 weeks gestation aspirin 81 2022-0 Yes [id number] 81mg Take 1 [facility] mg EC 7-18 tablet by ity of tablet 00:00: mouth in [place] 00 the Medical morning. Branch Start at 12 weeks gestation aspirin 81 2022-0 Yes [id number] 81mg Take 1 [facility]ivers mg EC 7-18 tablet by ity of tablet 00:00: mouth in [place] 00 the Medical morning. Branch Start at 12 weeks gestation aspirin 81 2022-0 Yes [id number] 81mg Take 1 [facility]ivers mg EC 7-18 tablet by ity of tablet 00:00: mouth in [place] 00 the Medical morning. Branch Start at 12 weeks gestation aspirin 81 2022-0 Yes [id number] 81mg Take 1 [facility] nivers mg EC 7-18 tablet by ity of tablet 00:00: mouth in [place] 00 the Medical morning. Branch Start at 12 weeks gestation aspirin 81 2022-0 2023- No [id number] 81mg Take 1 [facility] mg EC 7-18 02-21 tablet by ity of tablet 00:00: 00:00 mouth in [place] 00 :00 the Medical morning. Branch Start at 12 weeks gestation aspirin 81 2022-0 2023- No [id number] 81mg Take 1 [facility] mg EC 7-18 02-21 tablet by ity of tablet 00:00: 00:00 mouth in [place] 00 :00 the Medical morning. Branch Start at 12 weeks gestation proMETHazin 2022-0 Yes [id number] 25mg Take 1 [facility] e 25 mg 7-14 tablet by ity of tablet 00:00: mouth [place] 00 every 6 Medical (six) Branch hours as needed for Nausea and Vomiting (N/V). proMETHazin 2022-0 Yes [id number] 25mg Take 1 [facility] e 25 mg 7-14 tablet by ity of tablet 00:00: mouth [place] 00 every 6 Medical (six) Branch hours as needed for Nausea and Vomiting (N/V). proMETHazin 2022-0 Yes [id number] 25mg Take 1 [facility] e 25 mg 7-14 tablet by ity of tablet 00:00: mouth [place] 00 every 6 Medical (six) Branch hours as needed for Nausea and Vomiting (N/V). proMETHazin 2022-0 Yes [id number] 25mg Take 1 [facility] e 25 mg 7-14 tablet by ity of tablet 00:00: mouth [place] 00 every 6 Medical (six) Branch hours as needed for Nausea and Vomiting (N/V). proMETHazin 2-0 Yes [id number] 25mg Take 1 [facility] e 25 mg 7-14 tablet by ity of tablet 00:00: mouth [place] 00 every 6 Medical (six) Branch hours as needed for Nausea and Vomiting (N/V). proMETHazin 2-0 Yes [id number] 25mg Take 1 [facility] e 25 mg 7-14 tablet by ity of tablet 00:00: mouth [place] 00 every 6 Medical (six) Branch hours as needed for Nausea and Vomiting (N/V). proMETHazin 2-0 Yes [id number] 25mg Take 1 [facility] e 25 mg 7-14 tablet by ity of tablet 00:00: mouth [place] 00 every 6 Medical (six) Branch hours as needed for Nausea and Vomiting (N/V). proMETHazin 2-0 Yes [id number] 25mg Take 1 [facility] e 25 mg 7-14 tablet by ity of tablet 00:00: mouth [place] 00 every 6 Medical (six) Branch hours as needed for Nausea and Vomiting (N/V). proMETHazin 2022-0 Yes [id number] 25mg Take 1 [facility] e 25 mg 7-14 tablet by ity of tablet 00:00: mouth [place] 00 every 6 Medical (six) Branch hours as needed for Nausea and Vomiting (N/V). proMETHazin 2022-0 Yes [id number] 25mg Take 1 [facility] e 25 mg 7-14 tablet by ity of tablet 00:00: mouth [place] 00 every 6 Medical (six) Branch hours as needed for Nausea and Vomiting (N/V). proMETHazin 2022-0 Yes [id number] 25mg Take 1 [facility] e 25 mg 7-14 tablet by ity of tablet 00:00: mouth [place] 00 every 6 Medical (six) Branch hours as needed for Nausea and Vomiting (N/V). proMETHazin 2-0 Yes [id number] 25mg Take 1 [facility] e 25 mg 7-14 tablet by ity of tablet 00:00: mouth [place] 00 every 6 Medical (six) Branch hours as needed for Nausea and Vomiting (N/V). proMETHazin 2-0 Yes [id number] 25mg Take 1 [facility] e 25 mg 7-14 tablet by ity of tablet 00:00: mouth [place] 00 every 6 Medical (six) Branch hours as needed for Nausea and Vomiting (N/V). proMETHazin 2-0 Yes [id number] 25mg Take 1 [facility] e 25 mg 7-14 tablet by ity of tablet 00:00: mouth [place] 00 every 6 Medical (six) Branch hours as needed for Nausea and Vomiting (N/V). proMETHazin 2021-0 Yes [id number] 25mg Take 1 [facility] e 25 mg 7-14 tablet by ity of tablet 00:00: mouth [place] 00 every 6 Medical (six) Branch hours as needed for Nausea and Vomiting (N/V). proMETHazin 2021-0 Yes [id number] 25mg Take 1 [facility] e 25 mg 7-14 tablet by ity of tablet 00:00: mouth [place] 00 every 6 Medical (six) Branch hours as needed for Nausea and Vomiting (N/V). proMETHazin 2-0 Yes [id number] 25mg Take 1 [facility] e 25 mg 7-14 tablet by ity of tablet 00:00: mouth [place] 00 every 6 Medical (six) Branch hours as needed for Nausea and Vomiting (N/V). proMETHazin 2-0 Yes [id number] 25mg Take 1 [facility] e 25 mg 7-14 tablet by ity of tablet 00:00: mouth [place] 00 every 6 Medical (six) Branch hours as needed for Nausea and Vomiting (N/V). proMETHazin 2-0 Yes [id number] 25mg Take 1 [facility] e 25 mg 7-14 tablet by ity of tablet 00:00: mouth [place] 00 every 6 Medical (six) Branch hours as needed for Nausea and Vomiting (N/V). proMETHazin 2022-0 Yes [id number] 25mg Take 1 [facility] e 25 mg 7-14 tablet by ity of tablet 00:00: mouth [place] 00 every 6 Medical (six) Branch hours as needed for Nausea and Vomiting (N/V). proMETHazin 2022-0 Yes [id number] 25mg Take 1 [facility] e 25 mg 7-14 tablet by ity of tablet 00:00: mouth [place] 00 every 6 Medical (six) Branch hours as needed for Nausea and Vomiting (N/V). proMETHazin 2021-0 Yes [id number] 25mg Take 1 [facility] e 25 mg 7-14 tablet by ity of tablet 00:00: mouth [place] 00 every 6 Medical (six) Branch hours as needed for Nausea and Vomiting (N/V). proMETHazin 2021-0 Yes [id number] 25mg Take 1 [facility] e 25 mg 7-14 tablet by ity of tablet 00:00: mouth [place] 00 every 6 Medical (six) Branch hours as needed for Nausea and Vomiting (N/V). proMETHazin 2021-0 Yes [id number] 25mg Take 1 [facility] e 25 mg 7-14 tablet by ity of tablet 00:00: mouth [place] 00 every 6 Medical (six) Branch hours as needed for Nausea and Vomiting (N/V). proMETHazin 2021-0 Yes [id number] 25mg Take 1 [facility] e 25 mg 7-14 tablet by ity of tablet 00:00: mouth [place] 00 every 6 Medical (six) Branch hours as needed for Nausea and Vomiting (N/V). proMETHazin 2021-0 Yes [id number] 25mg Take 1 [facility] e 25 mg 7-14 tablet by ity of tablet 00:00: mouth [place] 00 every 6 Medical (six) Branch hours as needed for Nausea and Vomiting (N/V). proMETHazin 2021-0 Yes [id number] 25mg Take 1 [facility] e 25 mg 7-14 tablet by ity of tablet 00:00: mouth [place] 00 every 6 Medical (six) Branch hours as needed for Nausea and Vomiting (N/V). proMETHazin 2021-0 Yes [id number] 25mg Take 1 [facility] e 25 mg 7-14 tablet by ity of tablet 00:00: mouth [place] 00 every 6 Medical (six) Branch hours as needed for Nausea and Vomiting (N/V). proMETHazin 2021-0 Yes [id number] 25mg Take 1 [facility] e 25 mg 7-14 tablet by ity of tablet 00:00: mouth [place] 00 every 6 Medical (six) Branch hours as needed for Nausea and Vomiting (N/V). proMETHazin 2022-0 2023- No [id number] 25mg Take 1 [facility] e 25 mg 7-14 - tablet by ity of tablet 00:00: 00:00 mouth [place] 00 :00 every 6 Medical (six) Branch hours as needed for Nausea and Vomiting (N/V). proMETHazin 2022- No [id number] 25mg Take 1 [facility] e 25 mg 7-14 - tablet by ity of tablet 00:00: 00:00 mouth [place] 00 :00 every 6 Medical (six) Branch hours as needed for Nausea and Vomiting (N/V). Nitrofurant Yes [id number] 100mg Take 1 [facility] oin&Nit. 7-05 capsule by ity o f [place] 00:00: [place] ([place] 00 (two) Medical 100 mg times Branch capsule daily. Nitrofurant Yes [id number] 100mg Take 1 [facility] oin&Nit. 7-05 capsule by ity o f [place] 00:00: [place] ([place] 00 (two) Medical 100 mg times Branch capsule daily. Nitrofurant Yes [id number] 100mg Take 1 [facility] oin&Nit. 7-05 capsule by ity o f [place] 00:00: [place] ([place] 00 (two) Medical 100 mg times Branch capsule daily. Nitrofurant Yes [id number] 100mg Take 1 [facility] oin&Nit. 7-05 capsule by ity o f [place] 00:00: mouth [place] ([place] 00 (two) Medical 100 mg times Branch capsule daily. Nitrofurant Yes [id number] 100mg Take 1 [facility] oin&Nit. 7-05 capsule by ity o f [place] 00:00: [place] ([place] 00 (two) Medical 100 mg times Branch capsule daily. Nitrofurant Yes [id number] 100mg Take 1 [facility] oin&Nit. 7-05 capsule by ity o f [place] 00:00: [place] ([place] 00 (two) Medical 100 mg times Branch capsule daily. Nitrofurant Yes [id number] 100mg Take 1 [facility] oin&Nit. 7-05 capsule by ity o f [place] 00:00: [place] ([place] 00 (two) Medical 100 mg times Branch capsule daily. Nitrofurant 2021- No [id number] 100mg Take 1 [facility] oin&Nit. 7-05 12-12 capsule by ity of [place]ryst 00:00: 00:00 mouth 2 [place] (MACROBID) 00 :00 (two) Medical 100 mg times Branch capsule daily. Immunizations Ordered Immunization Filled Immunization Date Status Commen ts Source Name Name HPV9 2019-09-17 Completed [facility] 00:[facility]00 [facility] Branch HPV9 2019-09-17 Completed [facility] 00:00:00 [facility] Branch HPV9 2019-09-17 Completed [facility] 00[facility]00:00 [facility] Branch HPV9 2019-09-17 Completed [facility] 00:00:00 [facility] Branch HPV9 2019-09-17 Completed [facility] of 00:00:00 [facility] Branch HPV9 2019-09-17 Completed [facility] of 00[facility]00:00 [facility] Branch HPV9 2019-09-17 Completed [facility] 00:00:00 [facility] Branch HPV9 2019-09-17 Completed [facility] 00[facility]00:00 [facility] Branch HPV9 2019-09-17 Completed [facility] 00:00:00 [facility] Branch HPV9 2019-09-17 Completed [facility] 00[facility]00:00 [facility] Branch HPV9 2019-09-17 Completed [facility] of 00[facility]00:00 [facility] Branch HPV9 2019-09-17 Completed [facility] of 00[facility]00:00 [facility] Branch HPV9 2019-09-17 Completed [facility] of 00[facility]00:00 [facility] Branch HPV9 2019-09-17 Completed [facility] of 00[facility]00:00 [facility] Branch HPV9 2019-09-17 Completed [facility] of 00:00:00 [facility] Branch HPV9 2019-09-17 Completed [facility] of 00[facility]00:00 [facility] Branch HPV9 2019-09-17 Completed [facility] of 00[facility]00:00 [facility] Branch HPV9 2019-09-17 Completed [facility] of 00[facility]00:00 [facility] Branch HPV9 2019-09-17 Completed [facility] of 00:00:00 [facility] Branch HPV9 2019-09-17 Completed [facility] of 00:00:00 [facility] Branch HPV9 2019-09-17 Completed [facility] of 00:00:00 [place] [facility] HPV9 2019-09-17 Completed [facility] 00:00:00 [place] [facility] HPV9 2019-09-17 Completed [facility] 00:00:00 [place] [facility] HPV9 2019-09-17 Completed [facility] 00:00:00 [place] [facility] HPV9 2019-09-17 Completed [facility] 00:00:00 [place] [facility] HPV9 2019-09-17 Completed [facility] 00:00:00 [place] [facility] HPV9 2019-09-17 Completed [facility] 00:00:00 [place] [facility] HPV9 2019-09-17 Completed [facility] 00:00:00 [place] [facility] HPV9 2019-09-17 Completed [facility] 00:00:00 [place] [facility] HPV9 2019-09-17 Completed [facility] 00:00:00 [place] [facility] HPV9 2019-09-17 Completed [facility] 00:00:00 [place] [facility] HPV9 2019-09-17 Completed [facility] 00:00:00 [facility] Branch TDAP 2019-05-20 Completed [facility] of 00:00:00 [place] [facility] TDAP 2019-05-20 Completed [facility] 00:00:00 [place] [facility] TDAP 2019-05-20 Completed [facility] of 00:00:00 [place] [facility] TDAP 2019-05-20 Completed [facility] of 00:00:00 [place] [facility] TDAP 2019-05-20 Completed [facility] 00:00:00 [place] [facility] TDAP 2019-05-20 Completed [facility] of 00:00:00 [place] [facility] TDAP 2019-05-20 Completed [facility] of 00:00:00 [place] [facility] TDAP 2019-05-20 Completed [facility] of 00:00:00 [place] [facility] TDAP 2019-05-20 Completed [facility] of 00:00:00 [place] [facility] TDAP 2019-05-20 Completed [facility] of 00:00:00 [place] [facility] TDAP 2019-05-20 Completed [facility] of 00:00:00 [place] [facility] TDAP 2019-05-20 Completed [facility] of 00:00:00 [place] [facility] TDAP 2019-05-20 Completed [facility] of 00:00:00 [place] [facility] TDAP 2019-05-20 Completed [facility] of 00:00:00 [place] [facility] TDAP 2019-05-20 Completed [facility] of 00:00:00 [place] [facility] TDAP 2019-05-20 Completed [facility] of 00:00:00 [place] [facility] TDAP 2019-05-20 Completed [facility] of 00:00:00 [place] [facility] TDAP 2019-05-20 Completed [facility] of 00:00:00 [place] [facility] TDAP 2019-05-20 Completed [facility] of 00:00:00 [place] [facility] TDAP 2019-05-20 Completed [facility] of 00:00:00 [place] [facility] TDAP 2019-05-20 Completed [facility] of 00:00:00 [place] [facility] TDAP 2019-05-20 Completed [facility] of 00:00:00 [place] [facility] TDAP 2019-05-20 Completed [facility] of 00:00:00 [place] [facility] TDAP 2019-05-20 Completed [facility] of 00:00:00 [place] [facility] TDAP 2019-05-20 Completed [facility] of 00:00:00 [place] [facility] TDAP 2019-05-20 Completed [facility] of 00:00:00 [place] [facility] TDAP 2019-05-20 Completed [facility] of 00:00:00 [place] [facility] TDAP 2019-05-20 Completed [facility] of 00:00:00 [place] [facility] TDAP 2019-05-20 Completed [facility] of 00:00:00 [place] [facility] TDAP 2019-05-20 Completed [facility] 00:00:00 [place] [facility] TDAP 2019-05-20 Completed [facility] of 00:00:00 [place] [facility] TDAP 2019-05-20 Completed [facility] of 00:00:00 [facility] Branch HPV9 2018-07-04 Completed University of 00:00:00 [place] [facility] HPV9 2018-07-04 Completed [facility] of 00:00:00 [place] [facility] HPV9 2018-07-04 Completed [facility] of 00:00:00 [place] [facility] HPV9 2018-07-04 Completed [facility] of 00:00:00 [place] [facility] HPV9 2018-07-04 Completed [facility] of 00:00:00 [place] [facility] HPV9 2018-07-04 Completed [facility] of 00:00:00 [place] [facility] HPV9 2018-07-04 Completed [facility] of 00:00:00 [place] [facility] HPV9 2018-07-04 Completed [facility] of 00:00:00 [place] [facility] HPV9 2018-07-04 Completed [facility] of 00:00:00 [place] [facility] HPV9 2018-07-04 Completed [facility] of 00:00:00 [place] [facility] HPV9 2018-07-04 Completed [facility] of 00:00:00 [place] [facility] HPV9 2018-07-04 Completed [facility] of 00:00:00 [place] [facility] HPV9 2018-07-04 Completed [facility] of 00:00:00 [place] [facility] HPV9 2018-07-04 Completed [facility] of 00:00:00 [place] [facility] HPV9 2018-07-04 Completed [facility] 00:00:00 [place] [facility] HPV9 2018-07-04 Completed [facility] of 00:00:00 [place] [facility] HPV9 2018-07-04 Completed [facility] of 00:00:00 [place] [facility] HPV9 2018-07-04 Completed [facility] of 00:00:00 [place] [facility] HPV9 2018-07-04 Completed [facility] of 00:00:00 [place] [facility] HPV9 2018-07-04 Completed [facility] of 00:00:00 [place] [facility] HPV9 2018-07-04 Completed [facility] of 00:00:00 [place] [facility] HPV9 2018-07-04 Completed [facility] of 00:00:00 [place] [facility] HPV9 2018-07-04 Completed [facility] of 00:00:00 [place] [facility] HPV9 2018-07-04 Completed [facility] of 00:00:00 [place] [facility] HPV9 2018-07-04 Completed [facility] of 00:00:00 [place] [facility] HPV9 2018-07-04 Completed [facility] of 00:00:00 [place] [facility] HPV9 2018-07-04 Completed [facility] of 00:00:00 [place] [facility] HPV9 2018-07-04 Completed [facility] of 00:00:00 [place] [facility] HPV9 2018-07-04 Completed [facility] of 00:00:00 [place] [facility] HPV9 2018-07-04 Completed [facility] of 00:00:00 [place] [facility] HPV9 2018-07-04 Completed [facility] of 00:00:00 [place] [facility] HPV9 2018-07-04 Completed University of [...] Branch HPV9 2018-04-05 Completed University of 00:00:00 [place] [facility] HPV9 2018-04-05 Completed [facility] of 00:00:00 [place] [facility] HPV9 2018-04-05 Completed University of 00:00:00 [place] [facility] HPV9 2018-04-05 Completed [facility] of 00:00:00 [place] [facility] HPV9 2018-04-05 Completed University of 00:00:00 [place] [facility] HPV9 2018-04-05 Completed [facility] of 00:00:00 [place] [facility] HPV9 2018-04-05 Completed [facility] of 00:00:00 [place] [facility] HPV9 2018-04-05 Completed [facility] of 00:00:00 [place] [facility] HPV9 2018-04-05 Completed University of 00:00:00 [place] [facility] HPV9 2018-04-05 Completed [facility] of 00:00:00 [place] [facility] HPV9 2018-04-05 Completed [facility] of 00:00:00 [place] [facility] HPV9 2018-04-05 Completed [facility] of 00:00:00 [place] [facility] HPV9 2018-04-05 Completed [facility] of 00:00:00 [place] [facility] HPV9 2018-04-05 Completed [facility] of 00:00:00 [place] [facility] HPV9 2018-04-05 Completed [facility] of 00:00:00 [place] [facility] HPV9 2018-04-05 Completed [facility] of 00:00:00 [place] [facility] HPV9 2018-04-05 Completed [facility] of 00:00:00 [place] [facility] HPV9 2018-04-05 Completed [facility] of 00:00:00 [place] [facility] HPV9 2018-04-05 Completed [facility] of 00:00:00 [place] [facility] HPV9 2018-04-05 Completed [facility] 00:00:00 [facility] HPV9 2018-04-05 Completed [facility] 00:00:00 [facility] TDAP 2016-11-23 Completed [facility] 00:00:00 [facility] TDAP 2016-11-23 Completed [facility] 00:00:00 [facility] TDAP 2016-11-23 Completed [facility] 00[facility]00:00 [facility] TDAP 2016-11-23 Completed [facility] 00:00:00 [facility] TDAP 2016-11-23 Completed [facility] 00:00:00 [facility] TDAP 2016-11-23 Completed [facility] 00:00:00 [facility] TDAP 2016-11-23 Completed [facility] 00:00:00 [facility] TDAP 2016-11-23 Completed [facility] 00[facility]00:00 [facility] TDAP 2016-11-23 Completed [facility] 00:00:00 [facility] TDAP 2016-11-23 Completed [facility] 00:00:00 [facility] TDAP 2016-11-23 Completed [facility] 00:00:00 [facility] TDAP 2016-11-23 Completed [facility] 00:00:00 [facility] TDAP 2016-11-23 Completed [facility] 00:00:00 [facility] TDAP 2016-11-23 Completed [facility] 00:00:00 [facility] TDAP 2016-11-23 Completed [facility] 00:00:00 [facility] TDAP 2016-11-23 Completed [facility] 00:00:00 [facility] TDAP 2016-11-23 Completed [facility] 00:00:00 [facility] TDAP 2016-11-23 Completed [facility] 00:00:00 [facility] TDAP 2016-11-23 Completed [facility] 00:00:00 [facility] TDAP 2016-11-23 Completed [facility] 00:00:00 [facility] TDAP 2016-11-23 Completed [facility] 00:00:00 [facility] TDAP 2016-11-23 Completed [facility] 00:00:00 [facility] TDAP 2016-11-23 Completed [facility] 00:00:00 [facility] TDAP 2016-11-23 Completed [facility] 00:00:00 [facility] TDAP 2016-11-23 Completed [facility] 00:00:00 [facility] TDAP 2016-11-23 Completed [facility] 00:00:00 [facility] TDAP 2016-11-23 Completed [facility] 00:00:00 [facility] TDAP 2016-11-23 Completed [facility] 00:00:00 [facility] TDAP 2016-11-23 Completed [facility] 00:00:00 [facility] TDAP 2016-11-23 Completed [facility] 00:00:00 [facility] TDAP 2016-11-23 Completed [facility] 00:00:00 [facility] TDAP 2016-11-23 Completed [facility] 00:00:00 [facility] Meningococcal 2010-07-16 Completed [facility] Polysaccharide 00:00:00 [facility] (groups A, C, Y and Branc h W-135) conjugate vaccine (MCV4P) TDAP 2010-07-16 Completed [facility] 00:00:00 [facility] Varicella 2010-07-16 Completed [facility] (varivax)(chicken 00:00:00 [facility]ox) [facility] Meningococcal 2010-07-16 Completed [facility] Polysaccharide 00:00:00 [facility] (groups A, C, Y and Branc h W-135) conjugate vaccine (MCV4P) TDAP 2010-07-16 Completed [facility] 00:00:00 [facility] Varicella 2010-07-16 Completed [facility] (varivax)(chicken 00:00:00 [facility]ox) [facility] Meningococcal 2010-07-16 Completed [facility] Polysaccharide 00:00:00 [facility] (groups A, C, Y and Branc h W-135) conjugate vaccine (MCV4P) TDAP 2010-07-16 Completed [facility] 00:00:00 [facility] Varicella 2010-07-16 Completed [facility] (varivax)(chicken 00:00:00 [facility]ox) [facility] Meningococcal 2010-07-16 Completed [facility] Polysaccharide 00:00:00 [facility] (groups A, C, Y and Branc h W-135) conjugate vaccine (MCV4P) TDAP 2010-07-16 Completed [facility] 00:00:00 [facility] Varicella 2010-07-16 Completed [facility] (varivax)(chicken 00:00:00 [facility]ox) [facility] Meningococcal 2010-07-16 Completed [facility] Polysaccharide 00:00:00 [facility] (groups A, C, Y and Branc h W-135) conjugate vaccine (MCV4P) TDAP 2010-07-16 Completed [facility] 00:00:00 [facility] Varicella 2010-07-16 Completed [facility] (varivax)(chicken 00:00:00 [facility]ox) [facility] Meningococcal 2010-07-16 Completed [facility] Polysaccharide 00:00:00 [facility] (groups A, C, Y and Branc h W-135) conjugate vaccine (MCV4P) TDAP 2010-07-16 Completed [facility] 00:00:00 [facility] Varicella 2010-07-16 Completed [facility] (varivax)(chicken 00:00:00 [facility]ox) [facility] Meningococcal 2010-07-16 Completed [facility] Polysaccharide 00:00:00 [facility] (groups A, C, Y and Branc h W-135) conjugate vaccine (MCV4P) TDAP 2010-07-16 Completed [facility] 00:00:00 [facility] Varicella 2010-07-16 Completed [facility] (varivax)(chicken 00:00:00 [facility] pox) [facility] Meningococcal 2010-07-16 Completed [facility] Polysaccharide 00:00:00 [facility] (groups A, C, Y and Branc h W-135) conjugate vaccine (MCV4P) TDAP 2010-07-16 Completed [facility] 00:00:00 [facility] Varicella 2010-07-16 Completed [facility] (varivax)(chicken 00:00:00 [facility]ox) [facility] Meningococcal 2010-07-16 Completed [facility] Polysaccharide 00:00:00 [facility] (groups A, C, Y and Branc h W-135) conjugate vaccine (MCV4P) TDAP 2010-07-16 Completed [facility] 00:00:00 [facility] Varicella 2010-07-16 Completed [facility] (varivax)(chicken 00:00:00 [facility] pox) [facility] Meningococcal 2010-07-16 Completed [facility] Polysaccharide 00:00:00 [facility] (groups A, C, Y and Branc h W-135) conjugate vaccine (MCV4P) TDAP 2010-07-16 Completed [facility] 00:00:00 [facility] Varicella 2010-07-16 Completed [facility] (varivax)(chicken 00:00:00 [facility] pox) [facility] Meningococcal 2010-07-16 Completed [facility] Polysaccharide 00:00:00 [facility] (groups A, C, Y and Branc h W-135) conjugate vaccine (MCV4P) TDAP 2010-07-16 Completed [facility] 00:00:00 [facility] Varicella 2010-07-16 Completed [facility] (varivax)(chicken 00:00:00 [facility] pox) [facility] Meningococcal 2010-07-16 Completed [facility] Polysaccharide 00:00:00 [facility] (groups A, C, Y and Branc h W-135) conjugate vaccine (MCV4P) TDAP 2010-07-16 Completed [facility] 00:00:00 [facility] Varicella 2010-07-16 Completed [facility] (varivax)(chicken 00:00:00 [facility] pox) [facility] Meningococcal 2010-07-16 Completed [facility] Polysaccharide 00:00:00 [facility] (groups A, C, Y and Branc h W-135) conjugate vaccine (MCV4P) TDAP 2010-07-16 Completed [facility] 00:00:00 [facility] Varicella 2010-07-16 Completed [facility] (varivax)(chicken 00:00:00 [facility]ox) [facility] Meningococcal 2010-07-16 Completed [facility] Polysaccharide 00:00:00 [facility] (groups A, C, Y and Branc h W-135) conjugate vaccine (MCV4P) TDAP 2010-07-16 Completed [facility] 00:00:00 [facility] Varicella 2010-07-16 Completed [facility] (varivax)(chicken 00:00:00 [facility]ox) [facility] Meningococcal 2010-07-16 Completed [facility] Polysaccharide 00:00:00 [facility] (groups A, C, Y and Branc h W-135) conjugate vaccine (MCV4P) TDAP 2010-07-16 Completed [facility] 00:00:00 [facility] Varicella 2010-07-16 Completed [facility] (varivax)(chicken 00:00:00 [facility]ox) [facility] Meningococcal 2010-07-16 Completed [facility] Polysaccharide 00:00:00 [facility] (groups A, C, Y and Branc h W-135) conjugate vaccine (MCV4P) TDAP 2010-07-16 Completed [facility] 00:00:00 [facility] Varicella 2010-07-16 Completed [facility] (varivax)(chicken 00:00:00 [facility]ox) [facility] Meningococcal 2010-07-16 Completed [facility] Polysaccharide 00:00:00 [facility] (groups A, C, Y and Branc h W-135) conjugate vaccine (MCV4P) TDAP 2010-07-16 Completed [facility] 00:00:00 [facility] Varicella 2010-07-16 Completed [facility] (varivax)(chicken 00:00:00 [facility]ox) [facility] Meningococcal 2010-07-16 Completed [facility] Polysaccharide 00:00:00 [facility] (groups A, C, Y and Branc h W-135) conjugate vaccine (MCV4P) TDAP 2010-07-16 Completed [facility] 00:00:00 [facility] Varicella 2010-07-16 Completed [facility] (varivax)(chicken 00:00:00 [facility]ox) [facility] Meningococcal 2010-07-16 Completed [facility] Polysaccharide 00:00:00 [facility] (groups A, C, Y and Branc h W-135) conjugate vaccine (MCV4P) TDAP 2010-07-16 Completed [facility] 00:00:00 [facility] Varicella 2010-07-16 Completed [facility] (varivax)(chicken 00:00:00 [facility]ox) [facility] Meningococcal 2010-07-16 Completed [facility] Polysaccharide 00:00:00 [facility] (groups A, C, Y and Branc h W-135) conjugate vaccine (MCV4P) TDAP 2010-07-16 Completed [facility] 00:00:00 [facility] Varicella 2010-07-16 Completed [facility] (varivax)(chicken 00:00:00 [facility] pox) [facility] Meningococcal 2010-07-16 Completed [facility] Polysaccharide 00:00:00 [facility] (groups A, C, Y and Branc h W-135) conjugate vaccine (MCV4P) TDAP 2010-07-16 Completed [facility] 00:00:00 [facility] Varicella 2010-07-16 Completed [facility] (varivax)(chicken 00:00:00 [facility] pox) [facility] Meningococcal 2010-07-16 Completed [facility] Polysaccharide 00:00:00 [facility] (groups A, C, Y and Branc h W-135) conjugate vaccine (MCV4P) TDAP 2010-07-16 Completed [facility] 00:00:00 [facility] Varicella 2010-07-16 Completed [facility] (varivax)(chicken 00:00:00 [facility] pox) [facility] Meningococcal 2010-07-16 Completed [facility] Polysaccharide 00:00:00 [facility] (groups A, C, Y and Branc h W-135) conjugate vaccine (MCV4P) TDAP 2010-07-16 Completed [facility] 00:00:00 [facility] Varicella 2010-07-16 Completed [facility] (varivax)(chicken 00:00:00 [facility] pox) [facility] Meningococcal 2010-07-16 Completed [facility] Polysaccharide 00:00:00 [facility] (groups A, C, Y and Branc h W-135) conjugate vaccine (MCV4P) TDAP 2010-07-16 Completed [facility] 00:00:00 [facility] Varicella 2010-07-16 Completed [facility] (varivax)(chicken 00:00:00 [facility] pox) [facility] Meningococcal 2010-07-16 Completed [facility] Polysaccharide 00:00:00 [facility] (groups A, C, Y and Branc h W-135) conjugate vaccine (MCV4P) TDAP 2010-07-16 Completed [facility] 00:00:00 [facility] Varicella 2010-07-16 Completed [facility] (varivax)(chicken 00:00:00 [facility] pox) [facility] Meningococcal 2010-07-16 Completed [facility] Polysaccharide 00:00:00 [facility] gonzalo (groups A, C, Y and Branc h W-135) conjugate vaccine (MCV4P) TDAP 2010-07-16 Completed [facility] 00:00:00 [facility] Varicella 2010-07-16 Completed [facility] (varivax)(chicken 00:00:00 [facility] pox) [facility] Meningococcal 2010-07-16 Completed [facility] Polysaccharide 00:00:00 [facility] gonzalo (groups A, C, Y and Branc h W-135) conjugate vaccine (MCV4P) TDAP 2010-07-16 Completed [facility] 00:00:00 [facility] Varicella 2010-07-16 Completed [facility] (varivax)(chicken 00:00:00 [facility] pox) [facility] Meningococcal 2010-07-16 Completed [facility] Polysaccharide 00:00:00 [facility] (groups A, C, Y and Branc h W-135) conjugate vaccine (MCV4P) TDAP 2010-07-16 Completed [facility] 00:00:00 [facility] Varicella 2010-07-16 Completed [facility] (varivax)(chicken 00:00:00 [facility] pox) [facility] Meningococcal 2010-07-16 Completed [facility] Polysaccharide 00:00:00 [facility] (groups A, C, Y and Branc h W-135) conjugate vaccine (MCV4P) TDAP 2010-07-16 Completed [facility] 00:00:00 [facility] Varicella 2010-07-16 Completed [facility] (varivax)(chicken 00:00:00 [facility] pox) [facility] Meningococcal 2010-07-16 Completed [facility] Polysaccharide 00:00:00 [facility] (groups A, C, Y and Branc h W-135) conjugate vaccine (MCV4P) TDAP 2010-07-16 Completed [facility] 00:00:00 [facility] Varicella 2010-07-16 Completed [facility] (varivax)(chicken 00:00:00 [facility] pox) [facility] Meningococcal 2010-07-16 Completed [facility] Polysaccharide 00:00:00 [facility] (groups A, C, Y and Branc h W-135) conjugate vaccine (MCV4P) TDAP 2010-07-16 Completed [facility] 00:00:00 [facility] Varicella 2010-07-16 Completed [facility] (varivax)(chicken 00:00:00 [facility] pox) [facility] Meningococcal 2010-07-16 Completed [facility] Polysaccharide 00:00:00 [facility] (groups A, C, Y and Branc h W-135) conjugate vaccine (MCV4P) TDAP 2010-07-16 Completed [facility] 00:00:00 [facility] Varicella 2010-07-16 Completed [facility] (varivax)(chicken 00:00:00 [facility]ox[facility] IPV 2004-01-13 Completed [facility] 00:00:00 [facility] DTaP, Unspecified 2004-01-13 Completed Univers [facility] of Formulation 00:00:00 [facility] IPV 2004-01-13 Completed [facility] 00:00:00 [facility] DTaP, Unspecified 2004-01-13 Completed [facility] Formulation 00:00:00 [facility] IPV 2004-01-13 Completed [facility] 00:00:00 [facility] DTaP, Unspecified 2004-01-13 Completed [facility] Formulation 00:00:00 [facility] IPV 2004-01-13 Completed [facility] 00:00:00 [facility] DTaP, Unspecified 2004-01-13 Completed [facility] Formulation 00:00:00 [facility] IPV 2004-01-13 Completed [facility] 00:00:00 [facility] DTaP, Unspecified 2004-01-13 Completed [facility]y of Formulation 00:00:00 [facility] IPV 2004-01-13 Completed [facility] 00:00:00 [facility] DTaP, Unspecified 2004-01-13 Completed [facility] Formulation 00:00:00 [facility] IPV 2004-01-13 Completed [facility] 00:00:00 [facility] DTaP, Unspecified 2004-01-13 Completed [facility] Formulation 00:00:00 [facility] IPV 2004-01-13 Completed [facility] 00:00:00 [facility] DTaP, Unspecified 2004-01-13 Completed [facility] Formulation 00:00:00 [facility] IPV 2004-01-13 Completed [facility] 00:00:00 [facility] DTaP, Unspecified 2004-01-13 Completed [facility] Formulation 00:00:00 [facility] IPV 2004-01-13 Completed [facility] 00:00:00 [facility] DTaP, Unspecified 2004-01-13 Completed [facility] Formulation 00:00:00 [facility] IPV 2004-01-13 Completed [facility] 00:00:00 [facility] DTaP, Unspecified 2004-01-13 Completed [facility] of Formulation 00:00:00 [facility] IPV 2004-01-13 Completed [facility] 00:00:00 [facility] DTaP, Unspecified 2004-01-13 Completed [facility] Formulation 00:00:00 [facility] IPV 2004-01-13 Completed [facility] 00:00:00 [facility] DTaP, Unspecified 2004-01-13 Completed [facility] Formulation 00:00:00 [facility] IPV 2004-01-13 Completed [facility] 00:00:00 [facility] DTaP, Unspecified 2004-01-13 Completed [facility] Formulation 00:00:00 [facility] IPV 2004-01-13 Completed [facility] 00:00:00 [facility] DTaP, Unspecified 2004-01-13 Completed [facility] Formulation 00:00:00 [facility] IPV 2004-01-13 Completed [facility] 00:00:00 [facility] DTaP, Unspecified 2004-01-13 Completed [facility] Formulation 00:00:00 [facility] IPV 2004-01-13 Completed [facility] 00:00:00 [facility] DTaP, Unspecified 2004-01-13 Completed [facility] Formulation 00:00:00 [facility] IPV 2004-01-13 Completed [facility] 00:00:00 [facility] DTaP, Unspecified 2004-01-13 Completed [facility] Formulation 00:00:00 [facility] IPV 2004-01-13 Completed [facility] 00:00:00 [facility] DTaP, Unspecified 2004-01-13 Completed [facility] Formulation 00:00:00 [facility] IPV 2004-01-13 Completed [facility] 00:00:00 [facility] DTaP, Unspecified 2004-01-13 Completed [facility] Formulation 00:00:00 [facility] IPV 2004-01-13 Completed [facility] 00:00:00 [facility] DTaP, Unspecified 2004-01-13 Completed [facility] Formulation 00:00:00 [facility] IPV 2004-01-13 Completed [facility] 00:00:00 [facility] DTaP, Unspecified 2004-01-13 Completed [facility] Formulation 00:00:00 [facility] IPV 2004-01-13 Completed [facility] 00:00:00 [facility] DTaP, Unspecified 2004-01-13 Completed [facility] Formulation 00:00:00 [facility] IPV 2004-01-13 Completed [facility] 00:00:00 [facility] DTaP, Unspecified 2004-01-13 Completed [facility] Formulation 00:00:00 [facility] IPV 2004-01-13 Completed [facility] 00:00:00 [facility] DTaP, Unspecified 2004-01-13 Completed [facility] Formulation 00:00:00 [facility] DTAP 2003-11-18 Completed [facility] 00:00:00 [facility] Hep B, Adol or Pedi 2003-11-18 Completed Unive rsity of Dosage 00:00:00 [facility] MMR 2003-11-18 Completed [facility] 00:00:00 [facility] DTAP 2003-11-18 Completed [facility] 00:00:00 [facility] Hep B, Adol or Pedi 2003-11-18 Completed [facility]ive rs[facility] of Dosage 00:00:00 [facility] MMR 2003-11-18 Completed [facility] 00:00:00 [facility] DTAP 2003-11-18 Completed [facility] 00:00:00 [facility] Hep B, Adol or Pedi 2003-11-18 Completed [facility]ive rs[facility] of Dosage 00:00:00 [facility] MMR 2003-11-18 Completed [facility] 00:00:00 [facility] DTAP 2003-11-18 Completed [facility] 00:00:00 [facility] Hep B, Adol or Pedi 2003-11-18 Completed [facility]ive rs[facility] of Dosage 00:00:00 [facility] MMR 2003-11-18 Completed [facility] 00:00:00 [facility] DTAP 2003-11-18 Completed [facility] 00:00:00 [facility] Hep B, Adol or Pedi 2003-11-18 Completed Unive rs[facility] of Dosage 00:00:00 [facility] MMR 2003-11-18 Completed [facility] 00:00:00 [facility] DTAP 2003-11-18 Completed [facility] 00:00:00 [facility] Hep B, Adol or Pedi 2003-11-18 Completed [facility] rs[facility] of Dosage 00:00:00 [facility] MMR 2003-11-18 Completed [facility] 00:00:00 [facility] DTAP 2003-11-18 Completed [facility] 00:00:00 [facility] Hep B, Adol or Pedi 2003-11-18 Completed Unive rsity of Dosage 00:00:00 [facility] MMR 2003-11-18 Completed [facility] 00:00:00 [facility] DTAP 2003-11-18 Completed [facility] 00:00:00 [facility] Hep B, Adol or Pedi 2003-11-18 Completed Unive rsity of Dosage 00:00:00 [facility] MMR 2003-11-18 Completed [facility] 00:00:00 [facility] DTaP, Unspecified 2003-11-18 Completed [facility] Formulation 00:00:00 [facility] IPV 2003-11-18 Completed [facility] 00:00:00 [facility] DTAP 2003-11-18 Completed [facility] 00:00:00 [facility] Hep B, Adol or Pedi 2003-11-18 Completed [facility]ive rsity of Dosage 00:00:00 [facility] MMR 2003-11-18 Completed [facility] 00:00:00 [facility] DTaP, Unspecified 2003-11-18 Completed [facility] Formulation 00:00:00 [facility] IPV 2003-11-18 Completed [facility] 00:00:00 [facility] DTAP 2003-11-18 Completed [facility] 00:00:00 [facility] Hep B, Adol or Pedi 2003-11-18 Completed [facility] rs[facility] of Dosage 00:00:00 [facility] MMR 2003-11-18 Completed [facility] 00:00:00 [facility] DTaP, Unspecified 2003-11-18 Completed [facility] Formulation 00:00:00 [facility] IPV 2003-11-18 Completed [facility] 00:00:00 [facility] DTAP 2003-11-18 Completed [facility] 00:00:00 [facility] Hep B, Adol or Pedi 2003-11-18 Completed Unive rsity of Dosage 00:00:00 [facility] MMR 2003-11-18 Completed [facility] 00:00:00 [facility] DTaP, Unspecified 2003-11-18 Completed [facility] Formulation 00:00:00 [facility] IPV 2003-11-18 Completed [facility] 00:00:00 [facility] DTAP 2003-11-18 Completed [facility] 00:00:00 [facility] Hep B, Adol or Pedi 2003-11-18 Completed [facility]ive rsity of Dosage 00:00:00 [facility] MMR 2003-11-18 Completed [facility] 00:00:00 [facility] DTaP, Unspecified 2003-11-18 Completed [facility] Formulation 00:00:00 [facility] IPV 2003-11-18 Completed [facility] 00:00:00 [facility] DTAP 2003-11-18 Completed [facility] 00:00:00 [facility] Hep B, Adol or Pedi 2003-11-18 Completed Unive rsity of Dosage 00:00:00 [facility] MMR 2003-11-18 Completed [facility] 00:00:00 [facility] DTaP, Unspecified 2003-11-18 Completed [facility] Formulation 00:00:00 [facility] IPV 2003-11-18 Completed [facility] 00:00:00 [facility] DTAP 2003-11-18 Completed [facility] 00:00:00 [facility] Hep B, Adol or Pedi 2003-11-18 Completed [facility] rs[facility] of Dosage 00:00:00 [facility] MMR 2003-11-18 Completed [facility] 00:00:00 [facility] DTaP, Unspecified 2003-11-18 Completed [facility] Formulation 00:00:00 [facility] IPV 2003-11-18 Completed [facility] 00:00:00 [facility] DTAP 2003-11-18 Completed [facility] 00:00:00 [facility] Hep B, Adol or Pedi 2003-11-18 Completed [facility] of Dosage 00:00:00 [facility] MMR 2003-11-18 Completed [facility] 00:00:00 [facility] DTaP, Unspecified 2003-11-18 Completed [facility] of Formulation 00:00:00 [facility] IPV 2003-11-18 Completed [facility] 00:00:00 [facility] DTAP 2003-11-18 Completed [facility] 00:00:00 [facility] Hep B, Adol or Pedi 2003-11-18 Completed [facility]ive rsity of Dosage 00:00:00 [facility] MMR 2003-11-18 Completed [facility] 00:00:00 [facility] DTaP, Unspecified 2003-11-18 Completed [facility] Formulation 00:00:00 [facility] IPV 2003-11-18 Completed [facility] 00:00:00 [facility] DTAP 2003-11-18 Completed [facility] 00:00:00 [facility] Hep B, Adol or Pedi 2003-11-18 Completed [facility] of Dosage 00:00:00 [facility] MMR 2003-11-18 Completed [facility] 00:00:00 [facility] DTaP, Unspecified 2003-11-18 Completed [facility] Formulation 00:00:00 [facility] IPV 2003-11-18 Completed [facility] 00:00:00 [facility] DTAP 2003-11-18 Completed [facility] 00:00:00 [facility] Hep B, Adol or Pedi 2003-11-18 Completed [facility] rs[facility] Dosage 00:00:00 [facility] MMR 2003-11-18 Completed [facility] 00:00:00 [facility] DTaP, Unspecified 2003-11-18 Completed [facility] Formulation 00:00:00 [facility] IPV 2003-11-18 Completed [facility] 00:00:00 [facility] DTAP 2003-11-18 Completed [facility] 00:00:00 [facility] Hep B, Adol or Pedi 2003-11-18 Completed [facility]ive rs[facility] of Dosage 00:00:00 [facility] MMR 2003-11-18 Completed [facility] 00:00:00 [facility] DTaP, Unspecified 2003-11-18 Completed [facility] Formulation 00:00:00 [facility] IPV 2003-11-18 Completed [facility] 00:00:00 [facility] DTAP 2003-11-18 Completed [facility] 00:00:00 [facility] Hep B, Adol or Pedi 2003-11-18 Completed [facility] rs[facility] of Dosage 00:00:00 [facility] MMR 2003-11-18 Completed [facility] 00:00:00 [facility] DTaP, Unspecified 2003-11-18 Completed [facility] Formulation 00:00:00 [facility] IPV 2003-11-18 Completed [facility] 00:00:00 [facility] DTAP 2003-11-18 Completed [facility] 00:00:00 [facility] Hep B, Adol or Pedi 2003-11-18 Completed [facility] rs[facility] of Dosage 00:00:00 [facility] MMR 2003-11-18 Completed [facility] 00:00:00 [facility] DTaP, Unspecified 2003-11-18 Completed [facility] Formulation 00:00:00 [facility] IPV 2003-11-18 Completed [facility] 00:00:00 [facility] DTAP 2003-11-18 Completed [facility] 00:00:00 [facility] Hep B, Adol or Pedi 2003-11-18 Completed [facility] of Dosage 00:00:00 [facility] MMR 2003-11-18 Completed [facility] 00:00:00 [facility] DTaP, Unspecified 2003-11-18 Completed [facility] Formulation 00:00:00 [facility] IPV 2003-11-18 Completed [facility] 00:00:00 [facility] DTAP 2003-11-18 Completed [facility] 00:00:00 [facility] Hep B, Adol or Pedi 2003-11-18 Completed [facility] rs[facility] of Dosage 00:00:00 [facility] MMR 2003-11-18 Completed [facility] 00:00:00 [facility] DTaP, Unspecified 2003-11-18 Completed [facility] Formulation 00:00:00 [facility] IPV 2003-11-18 Completed [facility] 00:00:00 [facility] DTAP 2003-11-18 Completed [facility] 00:00:00 [facility] Hep B, Adol or Pedi 2003-11-18 Completed [facility] rs[facility] of Dosage 00:00:00 [facility] MMR 2003-11-18 Completed [facility] 00:00:00 [facility] DTaP, Unspecified 2003-11-18 Completed [facility] Formulation 00:00:00 [facility] IPV 2003-11-18 Completed [facility] 00:00:00 [facility] DTAP 2003-11-18 Completed [facility] 00:00:00 [facility] Hep B, Adol or Pedi 2003-11-18 Completed [facility] rs[facility] of Dosage 00:00:00 [facility] MMR 2003-11-18 Completed [facility] 00:00:00 [facility] DTaP, Unspecified 2003-11-18 Completed [facility] Formulation 00:00:00 [facility] IPV 2003-11-18 Completed [facility] 00:00:00 [facility] DTAP 2003-11-18 Completed [facility] 00:00:00 [facility] Hep B, Adol or Pedi 2003-11-18 Completed [facility] rs[facility] of Dosage 00:00:00 [facility] MMR 2003-11-18 Completed [facility] 00:00:00 [facility] DTaP, Unspecified 2003-11-18 Completed [facility] Formulation 00:00:00 [facility] IPV 2003-11-18 Completed [facility] 00:00:00 [facility] DTAP 2003-11-18 Completed [facility] 00:00:00 [facility] Hep B, Adol or Pedi 2003-11-18 Completed [facility] rs[facility] of Dosage 00:00:00 [facility] MMR 2003-11-18 Completed [facility] 00:00:00 [facility] DTaP, Unspecified 2003-11-18 Completed [facility] Formulation 00:00:00 [facility] IPV 2003-11-18 Completed [facility] 00:00:00 [facility] DTAP 2003-11-18 Completed [facility] 00:00:00 [facility] Hep B, Adol or Pedi 2003-11-18 Completed [facility] rs[facility] of Dosage 00:00:00 [facility] MMR 2003-11-18 Completed [facility] 00:00:00 [facility] DTaP, Unspecified 2003-11-18 Completed [facility] Formulation 00:00:00 [facility] IPV 2003-11-18 Completed [facility] 00:00:00 [facility] DTAP 2003-11-18 Completed [facility] 00:00:00 [facility] Hep B, Adol or Pedi 2003-11-18 Completed [facility] rs[facility] of Dosage 00:00:00 [facility] MMR 2003-11-18 Completed [facility] 00:00:00 [facility] DTaP, Unspecified 2003-11-18 Completed [facility] Formulation 00:00:00 [facility] IPV 2003-11-18 Completed [facility] 00:00:00 [facility] DTAP 2003-11-18 Completed [facility] 00:00:00 [facility] Hep B, Adol or Pedi 2003-11-18 Completed [facility] of Dosage 00:00:00 [facility] MMR 2003-11-18 Completed [facility] 00:00:00 [facility] DTaP, Unspecified 2003-11-18 Completed [facility] Formulation 00:00:00 [facility] IPV 2003-11-18 Completed [facility] 00:00:00 [facility] DTAP 2003-11-18 Completed [facility] 00:00:00 [facility] Hep B, Adol or Pedi 2003-11-18 Completed [facility] of Dosage 00:00:00 [facility] MMR 2003-11-18 Completed [facility] 00:00:00 [facility] DTaP, Unspecified 2003-11-18 Completed [facility] Formulation 00:00:00 [facility] IPV 2003-11-18 Completed [facility] 00:00:00 [facility] DTAP 2003-11-18 Completed [facility] 00:00:00 [facility] Hep B, Adol or Pedi 2003-11-18 Completed [facility] rs[facility] of Dosage 00:00:00 [facility] MMR 2003-11-18 Completed [facility] 00:00:00 [facility] DTaP, Unspecified 2003-11-18 Completed [facility] Formulation 00:00:00 [facility] IPV 2003-11-18 Completed [facility] 00:00:00 [facility] DTAP 2003-08-26 Completed [facility] 00:00:00 [facility] Hep B, Adol or Pedi 2003-08-26 Completed [facility] rs[facility] of Dosage 00:00:00 [facility] MMR 2003-08-26 Completed [facility] 00:00:00 [facility] Polio (IPV/OPV) 2003-08-26 Completed [facility] 00:00:00 [facility] Varicella 2003-08-26 Completed [facility] of (varivax)(chicken 00:00:00 [place] [facility] pox) [facility] DTAP 2003-08-26 Completed [facility] 00:00:00 [facility] Hep B, Adol or Pedi 2003-08-26 Completed [facility] rs[facility] of Dosage 00:00:00 [facility] MMR 2003-08-26 Completed [facility] 00:00:00 [facility] Polio (IPV/OPV) 2003-08-26 Completed [facility] 00:00:00 [facility] Varicella 2003-08-26 Completed [facility] (varivax)(chicken 00:00:00 [place] [facility] pox) [facility] DTAP 2003-08-26 Completed [facility] 00:00:00 [facility] Hep B, Adol or Pedi 2003-08-26 Completed [facility] rs[facility] of Dosage 00:00:00 [facility] MMR 2003-08-26 Completed [facility] 00:00:00 [facility] Polio (IPV/OPV) 2003-08-26 Completed [facility] 00:00:00 [facility] Varicella 2003-08-26 Completed [facility] (varivax)(chicken 00:00:00 [place] [facility]ox) [facility] DTAP 2003-08-26 Completed [facility] 00:00:00 [facility] Hep B, Adol or Pedi 2003-08-26 Completed [facility] rs[facility] of Dosage 00:00:00 [facility] MMR 2003-08-26 Completed [facility] 00:00:00 [facility] Polio (IPV/OPV) 2003-08-26 Completed [facility] 00:00:00 [facility] Varicella 2003-08-26 Completed [facility] (varivax)(chicken 00:00:00 [place] [facility] DTAP 2003-08-26 Completed [facility] 00:00:00 [facility] Hep B, Adol or Pedi 2003-08-26 Completed [facility] rs[facility] of Dosage 00:00:00 [facility] MMR 2003-08-26 Completed [facility] 00:00:00 [facility] Polio (IPV/OPV) 2003-08-26 Completed [facility] 00:00:00 [facility] Varicella 2003-08-26 Completed [facility] (varivax)(chicken 00:00:00 [place] [facility] pox) [facility] DTAP 2003-08-26 Completed [facility] 00:00:00 [facility] Hep B, Adol or Pedi 2003-08-26 Completed [facility] rs[facility] of Dosage 00:00:00 [facility] MMR 2003-08-26 Completed [facility] 00:00:00 [facility] Polio (IPV/OPV) 2003-08-26 Completed [facility] 00:00:00 [facility] Varicella 2003-08-26 Completed [facility] (varivax)(chicken 00:00:00 [place] [facility] pox) [facility] DTAP 2003-08-26 Completed [facility] 00:00:00 [facility] Hep B, Adol or Pedi 2003-08-26 Completed [facility] of Dosage 00:00:00 [facility] MMR 2003-08-26 Completed [facility] 00:00:00 [facility] Polio (IPV/OPV) 2003-08-26 Completed [facility] 00:00:00 [facility] Varicella 2003-08-26 Completed [facility] (varivax)(chicken 00:00:00 [place] [facility]ox) [facility] DTAP 2003-08-26 Completed [facility] 00:00:00 [facility] Hep B, Adol or Pedi 2003-08-26 Completed [facility] rs[facility] of Dosage 00:00:00 [facility] MMR 2003-08-26 Completed [facility] 00:00:00 [facility] Polio (IPV/OPV) 2003-08-26 Completed [facility] 00:00:00 [facility] Varicella 2003-08-26 Completed [facility] (varivax)(chicken 00:00:00 [facility] edical pox) Branch DTaP, Unspecified 2003-08-26 Completed Univers ity of Formulation 00:00:00 [facility] Pneumococcal 7 2003-08-26 Completed [facility] of Conjugate, PCV7 00:00:00 [place] [facility] (Prevnar7) [facility] IPV 2003-08-26 Completed [facility] 00:00:00 [facility] DTAP 2003-08-26 Completed [facility] 00:00:00 [facility] Hep B, Adol or Pedi 2003-08-26 Completed [facility] of Dosage 00:00:00 [facility] MMR 2003-08-26 Completed [facility] 00:00:00 [facility] Polio (IPV/OPV) 2003-08-26 Completed [facility] 00:00:00 [facility] Varicella 2003-08-26 Completed [facility] (varivax)(chicken 00:00:00 [place] [facility]ox) [facility] DTaP, Unspecified 2003-08-26 Completed [facility] it[facility] of Formulation 00:00:00 [facility] Pneumococcal 7 2003-08-26 Completed [facility] Conjugate, PCV7 00:00:00 [place] [facility] (Prevnar7) [facility] IPV 2003-08-26 Completed [facility] 00:00:00 [facility] DTAP 2003-08-26 Completed [facility] 00:00:00 [facility] Hep B, Adol or Pedi 2003-08-26 Completed [facility] rs[facility] of Dosage 00:00:00 [facility] MMR 2003-08-26 Completed [facility] 00:00:00 [facility] Polio (IPV/OPV) 2003-08-26 Completed [facility] 00:00:00 [facility] Varicella 2003-08-26 Completed [facility] of (varivax)(chicken 00:00:00 [facility] edical pox) Branch DTaP, Unspecified 2003-08-26 Completed Univers it[facility] of Formulation 00:00:00 [facility] Pneumococcal 7 2003-08-26 Completed [facility] of Conjugate, PCV7 00:00:00 [place] [facility] (Prevnar7) [facility] IPV 2003-08-26 Completed [facility] 00:00:00 [facility] DTAP 2003-08-26 Completed [facility] 00:00:00 [facility] Hep B, Adol or Pedi 2003-08-26 Completed [facility] rs[facility] of Dosage 00:00:00 [facility] MMR 2003-08-26 Completed [facility] 00:00:00 [facility] Polio (IPV/OPV) 2003-08-26 Completed [facility] 00:00:00 [facility] Varicella 2003-08-26 Completed [facility] of (varivax)(chicken 00:00:00 [facility] edical pox) Branch DTaP, Unspecified 2003-08-26 Completed [facility] it[facility] of Formulation 00:00:00 [facility] Pneumococcal 7 2003-08-26 Completed [facility] Conjugate, PCV7 00:00:00 [place] [facility] (Prevnar7) [facility] IPV 2003-08-26 Completed [facility] 00:00:00 [facility] DTAP 2003-08-26 Completed [facility] 00:00:00 [facility] Hep B, Adol or Pedi 2003-08-26 Completed Unive rsity of Dosage 00:00:00 [facility] MMR 2003-08-26 Completed [facility] 00:00:00 [facility] Polio (IPV/OPV) 2003-08-26 Completed [facility] 00:00:00 [facility] Varicella 2003-08-26 Completed [facility] of (varivax)(chicken 00:00:00 [facility] edical pox) Branch DTaP, Unspecified 2003-08-26 Completed Univers it[facility] of Formulation 00:00:00 [facility] Pneumococcal 7 2003-08-26 Completed [facility] of Conjugate, PCV7 00:00:00 [facility] (Prevnar7) [facility] IPV 2003-08-26 Completed [facility] 00:00:00 [facility] DTAP 2003-08-26 Completed [facility] 00:00:00 [facility] Hep B, Adol or Pedi 2003-08-26 Completed [facility]ive rsity of Dosage 00:00:00 [facility] MMR 2003-08-26 Completed [facility] 00:00:00 [facility] Polio (IPV/OPV) 2003-08-26 Completed [facility] 00:00:00 [facility] Varicella 2003-08-26 Completed [facility] of (varivax)(chicken 00:00:00 [facility] edical pox) Branch DTaP, Unspecified 2003-08-26 Completed [facility] it[facility] of Formulation 00:00:00 [facility] Pneumococcal 7 2003-08-26 Completed [facility] of Conjugate, PCV7 00:00:00 [place] [facility] (Prevnar7) [facility] IPV 2003-08-26 Completed [facility] 00:00:00 [facility] DTAP 2003-08-26 Completed [facility] 00:00:00 [facility] Hep B, Adol or Pedi 2003-08-26 Completed [facility]ive rs[facility] of Dosage 00:00:00 [facility] MMR 2003-08-26 Completed [facility] 00:00:00 [facility] Polio (IPV/OPV) 2003-08-26 Completed [facility] 00:00:00 [facility] Varicella 2003-08-26 Completed [facility] of (varivax)(chicken 00:00:00 [facility] edical pox) Branch DTaP, Unspecified 2003-08-26 Completed [facility] it[facility] of Formulation 00:00:00 [facility] Pneumococcal 7 2003-08-26 Completed [facility] of Conjugate, PCV7 00:00:00 [place] [facility] (Prevnar7) [facility] IPV 2003-08-26 Completed [facility] 00:00:00 [facility] DTAP 2003-08-26 Completed [facility] 00:00:00 [facility] Hep B, Adol or Pedi 2003-08-26 Completed [facility]ive rsity of Dosage 00:00:00 [facility] MMR 2003-08-26 Completed [facility] 00:00:00 [facility] Polio (IPV/OPV) 2003-08-26 Completed [facility] 00:00:00 [facility] Varicella 2003-08-26 Completed [facility] (varivax)(chicken 00:00:00 [place] [facility] pox) [facility] DTaP, Unspecified 2003-08-26 Completed [facility] of Formulation 00:00:00 [facility] Pneumococcal 7 2003-08-26 Completed [facility] of Conjugate, PCV7 00:00:00 [place] [facility] (Prevnar7) [facility] IPV 2003-08-26 Completed [facility] 00:00:00 [facility] DTAP 2003-08-26 Completed [facility] 00:00:00 [facility] Hep B, Adol or Pedi 2003-08-26 Completed Unive rs[facility] of Dosage 00:00:00 [facility] MMR 2003-08-26 Completed [facility] 00:00:00 [facility] Polio (IPV/OPV) 2003-08-26 Completed [facility] 00:00:00 [facility] Varicella 2003-08-26 Completed [facility] of (varivax)(chicken 00:00:00 [facility] edical pox) Branch DTaP, Unspecified 2003-08-26 Completed [facility] it[facility] of Formulation 00:00:00 [facility] Pneumococcal 7 2003-08-26 Completed [facility] of Conjugate, PCV7 00:00:00 [place] [facility] (Prevnar7) [facility] IPV 2003-08-26 Completed [facility] 00:00:00 [facility] DTAP 2003-08-26 Completed [facility] 00:00:00 [facility] Hep B, Adol or Pedi 2003-08-26 Completed [facility]ive rsity of Dosage 00:00:00 [facility] MMR 2003-08-26 Completed [facility] 00:00:00 [facility] Polio (IPV/OPV) 2003-08-26 Completed [facility] 00:00:00 [facility] Varicella 2003-08-26 Completed [facility] of (varivax)(chicken 00:00:00 [facility] edical pox) Branch DTaP, Unspecified 2003-08-26 Completed [facility] it[facility] of Formulation 00:00:00 [facility] Pneumococcal 7 2003-08-26 Completed [facility] of Conjugate, PCV7 00:00:00 [place] [facility] (Prevnar7) [facility] IPV 2003-08-26 Completed [facility] 00:00:00 [facility] DTAP 2003-08-26 Completed [facility] 00:00:00 [facility] Hep B, Adol or Pedi 2003-08-26 Completed [facility]ive rs[facility] of Dosage 00:00:00 [facility] MMR 2003-08-26 Completed [facility] 00:00:00 [facility] Polio (IPV/OPV) 2003-08-26 Completed [facility] 00:00:00 [facility] Varicella 2003-08-26 Completed [facility] (varivax)(chicken 00:00:00 [place] [facility]ox) [facility] DTaP, Unspecified 2003-08-26 Completed [facility] of Formulation 00:00:00 [facility] Pneumococcal 7 2003-08-26 Completed [facility] of Conjugate, PCV7 00:00:00 [place] [facility] (Prevnar7) [facility] IPV 2003-08-26 Completed [facility] 00:00:00 [facility] DTAP 2003-08-26 Completed [facility] 00:00:00 [facility] Hep B, Adol or Pedi 2003-08-26 Completed [facility]ive rsity of Dosage 00:00:00 [facility] MMR 2003-08-26 Completed [facility] 00:00:00 [facility] Polio (IPV/OPV) 2003-08-26 Completed [facility] 00:00:00 [facility] Varicella 2003-08-26 Completed [facility] of (varivax)(chicken 00:00:00 [facility] edical pox) Branch DTaP, Unspecified 2003-08-26 Completed [facility] it[facility] of Formulation 00:00:00 [facility] Pneumococcal 7 2003-08-26 Completed [facility] of Conjugate, PCV7 00:00:00 [place] [facility] (Prevnar7) [facility] IPV 2003-08-26 Completed [facility] 00:00:00 [facility] DTAP 2003-08-26 Completed [facility] 00:00:00 [facility] Hep B, Adol or Pedi 2003-08-26 Completed Unive rsity of Dosage 00:00:00 [facility] MMR 2003-08-26 Completed [facility] 00:00:00 [facility] Polio (IPV/OPV) 2003-08-26 Completed [facility] 00:00:00 [facility] Varicella 2003-08-26 Completed [facility] (varivax)(chicken 00:00:00 [place] [facility] pox) [facility] DTaP, Unspecified 2003-08-26 Completed [facility] of Formulation 00:00:00 [facility] Pneumococcal 7 2003-08-26 Completed [facility] of Conjugate, PCV7 00:00:00 [place] [facility] (Prevnar7) [facility] IPV 2003-08-26 Completed [facility] 00:00:00 [facility] DTAP 2003-08-26 Completed [facility] 00:00:00 [facility] Hep B, Adol or Pedi 2003-08-26 Completed [facility] rsity of Dosage 00:00:00 [facility] MMR 2003-08-26 Completed [facility] 00:00:00 [facility] Polio (IPV/OPV) 2003-08-26 Completed [facility] 00:00:00 [facility] Varicella 2003-08-26 Completed [facility] of (varivax)(chicken 00:00:00 [facility] edical pox) Branch DTaP, Unspecified 2003-08-26 Completed [facility] of Formulation 00:00:00 [facility] Pneumococcal 7 2003-08-26 Completed [facility] of Conjugate, PCV7 00:00:00 [place] [facility] (Prevnar7) [facility] IPV 2003-08-26 Completed [facility] 00:00:00 [facility] DTAP 2003-08-26 Completed [facility] 00:00:00 [facility] Hep B, Adol or Pedi 2003-08-26 Completed [facility]ive rsity of Dosage 00:00:00 [facility] MMR 2003-08-26 Completed [facility] 00:00:00 [facility] Polio (IPV/OPV) 2003-08-26 Completed [facility] 00:00:00 [facility] Varicella 2003-08-26 Completed [facility] of (varivax)(chicken 00:00:00 [facility] edical pox) Branch DTaP, Unspecified 2003-08-26 Completed [facility] Formulation 00:00:00 [facility] Pneumococcal 7 2003-08-26 Completed [facility] of Conjugate, PCV7 00:00:00 [place] [facility] (Prevnar7) [facility] IPV 2003-08-26 Completed [facility] 00:00:00 [facility] DTAP 2003-08-26 Completed [facility] 00:00:00 [facility] Hep B, Adol or Pedi 2003-08-26 Completed [facility] rs[facility] of Dosage 00:00:00 [facility] MMR 2003-08-26 Completed [facility] 00:00:00 [facility] Polio (IPV/OPV) 2003-08-26 Completed [facility] 00:00:00 [facility] Varicella 2003-08-26 Completed [facility] (varivax)(chicken 00:00:00 [place] [facility] pox) [facility] DTaP, Unspecified 2003-08-26 Completed [facility] Formulation 00:00:00 [facility] Pneumococcal 7 2003-08-26 Completed [facility] of Conjugate, PCV7 00:00:00 [place] [facility] (Prevnar7) [facility] IPV 2003-08-26 Completed [facility] 00:00:00 [facility] DTAP 2003-08-26 Completed [facility] 00:00:00 [facility] Hep B, Adol or Pedi 2003-08-26 Completed Unive rsity of Dosage 00:00:00 [facility] MMR 2003-08-26 Completed [facility] 00:00:00 [facility] Polio (IPV/OPV) 2003-08-26 Completed [facility] 00:00:00 [facility] Varicella 2003-08-26 Completed [facility] of (varivax)(chicken 00:00:00 [facility] edical pox) Branch DTaP, Unspecified 2003-08-26 Completed [facility] of Formulation 00:00:00 [facility] Pneumococcal 7 2003-08-26 Completed [facility] of Conjugate, PCV7 00:00:00 [facility] (Prevnar7) Branch IPV 2003-08-26 Completed [facility] of 00:00:00 [facility] DTAP 2003-08-26 Completed [facility] of 00:00:00 [facility] Hep B, Adol or Pedi 2003-08-26 Completed Unive rsity of Dosage 00:00:00 [facility] MMR 2003-08-26 Completed [facility] of 00:00:00 [facility] Polio (IPV/OPV) 2003-08-26 Completed [facility] 00:00:00 [facility] Varicella 2003-08-26 Completed [facility] (varivax)(chicken 00:00:00 [facility] edical pox) Branch DTaP, Unspecified 2003-08-26 Completed [facility] Formulation 00:00:00 [facility] Pneumococcal 7 2003-08-26 Completed [facility] of Conjugate, PCV7 00:00:00 [facility] (Prevnar7) Branch IPV 2003-08-26 Completed [facility] 00:00:00 [facility] DTAP 2003-08-26 Completed [facility] of 00:00:00 [facility] Hep B, Adol or Pedi 2003-08-26 Completed [facility]ive rs[facility] of Dosage 00:00:00 [facility] MMR 2003-08-26 Completed [facility] of 00:00:00 [facility] Polio (IPV/OPV) 2003-08-26 Completed [facility] 00:00:00 [facility] Varicella 2003-08-26 Completed [facility] (varivax)(chicken 00:00:00 [facility] pox) [facility] DTaP, Unspecified 2003-08-26 Completed [facility] Formulation 00:00:00 [facility] Pneumococcal 7 2003-08-26 Completed [facility] Conjugate, PCV7 00:00:00 [facility] (Prevnar7) Branch IPV 2003-08-26 Completed [facility] 00:00:00 [facility] DTAP 2003-08-26 Completed [facility] 00:00:00 [facility] Hep B, Adol or Pedi 2003-08-26 Completed [facility] rs[facility] of Dosage 00:00:00 [facility] MMR 2003-08-26 Completed [facility] 00:00:00 [facility] Polio (IPV/OPV) 2003-08-26 Completed [facility] 00:00:00 [facility] Varicella 2003-08-26 Completed [facility] (varivax)(chicken 00:00:00 [facility] edical pox) Branch DTaP, Unspecified 2003-08-26 Completed [facility] Formulation 00:00:00 [facility] Pneumococcal 7 2003-08-26 Completed [facility] Conjugate, PCV7 00:00:00 [facility] (Prevnar7) Branch IPV 2003-08-26 Completed [facility] 00:00:00 [facility] DTAP 2003-08-26 Completed [facility] of 00:00:00 [facility] Hep B, Adol or Pedi 2003-08-26 Completed [facility] rs[facility] of Dosage 00:00:00 [facility] MMR 2003-08-26 Completed [facility] of 00:00:00 [facility] Polio (IPV/OPV) 2003-08-26 Completed [facility] 00:00:00 [facility] Varicella 2003-08-26 Completed [facility] (varivax)(chicken 00:00:00 [facility] pox) [facility] DTaP, Unspecified 2003-08-26 Completed [facility] Formulation 00:00:00 [facility] Pneumococcal 7 2003-08-26 Completed [facility] of Conjugate, PCV7 00:00:00 [facility] (Prevnar7) Branch IPV 2003-08-26 Completed [facility] 00:00:00 [facility] DTAP 2003-08-26 Completed [facility] 00:00:00 [facility] Hep B, Adol or Pedi 2003-08-26 Completed [facility] rs[facility] of Dosage 00:00:00 [facility] MMR 2003-08-26 Completed [facility] of 00:00:00 [facility] Polio (IPV/OPV) 2003-08-26 Completed [facility] 00:00:00 [facility] Varicella 2003-08-26 Completed [facility] (varivax)(chicken 00:00:00 [facility] edical pox) Branch DTaP, Unspecified 2003-08-26 Completed [facility] it[facility] of Formulation 00:00:00 [facility] Pneumococcal 7 2003-08-26 Completed [facility] of Conjugate, PCV7 00:00:00 [facility] (Prevnar7) Branch IPV 2003-08-26 Completed [facility] of 00:00:00 [facility] DTAP 2003-08-26 Completed [facility] of 00:00:00 [facility] Hep B, Adol or Pedi 2003-08-26 Completed [facility]ive rs[facility] of Dosage 00:00:00 [facility] MMR 2003-08-26 Completed [facility] of 00:00:00 [facility] Polio (IPV/OPV) 2003-08-26 Completed [facility] 00:00:00 [facility] Varicella 2003-08-26 Completed [facility] of (varivax)(chicken 00:00:00 [facility] edical pox) Branch DTaP, Unspecified 2003-08-26 Completed [facility] it[facility] of Formulation 00:00:00 [facility] Pneumococcal 7 2003-08-26 Completed [facility] of Conjugate, PCV7 00:00:00 [facility] (Prevnar7) Branch IPV 2003-08-26 Completed [facility] of 00:00:00 [facility] DTAP 2003-08-26 Completed [facility] of 00:00:00 [facility] Hep B, Adol or Pedi 2003-08-26 Completed [facility]ive rs[facility] of Dosage 00:00:00 [facility] MMR 2003-08-26 Completed [facility] of 00:00:00 [facility] Polio (IPV/OPV) 2003-08-26 Completed [facility] 00:00:00 [facility] Varicella 2003-08-26 Completed [facility] (varivax)(chicken 00:00:00 [facility] pox) Branch DTaP, Unspecified 2003-08-26 Completed [facility] Formulation 00:00:00 [facility] Pneumococcal 7 2003-08-26 Completed [facility] Conjugate, PCV7 00:00:00 [facility] (Prevnar7) Branch IPV 2003-08-26 Completed [facility] of 00:00:00 [facility] DTAP 2003-08-26 Completed [facility] of 00:00:00 [facility] Hep B, Adol or Pedi 2003-08-26 Completed [facility]ive rs[facility] of Dosage 00:00:00 [facility] MMR 2003-08-26 Completed [facility] of 00:00:00 [facility] Polio (IPV/OPV) 2003-08-26 Completed [facility] 00:00:00 [facility] Varicella 2003-08-26 Completed [facility] (varivax)(chicken 00:00:00 [facility] pox) Branch DTaP, Unspecified 2003-08-26 Completed [facility] Formulation 00:00:00 [facility] Pneumococcal 7 2003-08-26 Completed [facility] of Conjugate, PCV7 00:00:00 [facility] (Prevnar7) Branch IPV 2003-08-26 Completed [facility] of 00:00:00 [facility] Hep B, Adol or Pedi 1998-03-17 Completed [facility]ive rsity of Dosage 00:00:00 [facility] HIB 3 Dose Schedule 1998-03-17 Completed [facility]ive rsity of 00:00:00 [facility] Polio (IPV/OPV) 1998-03-17 Completed [facility] 00:00:00 [facility] Hep B, Adol or Pedi 1998-03-17 Completed [facility]ive rsity of Dosage 00:00:00 [facility] HIB 3 Dose Schedule 1998-03-17 Completed [facility]ive rsity of 00:00:00 [facility] Polio (IPV/OPV) 1998-03-17 Completed [facility] 00:00:00 [facility] Hep B, Adol or Pedi 1998-03-17 Completed [facility]ive rsity of Dosage 00:00:00 [facility] HIB 3 Dose Schedule 1998-03-17 Completed [facility]ive rsity of 00:00:00 [facility] Polio (IPV/OPV) 1998-03-17 Completed [facility] 00:00:00 [facility] Hep B, Adol or Pedi 1998-03-17 Completed [facility]ive rsity of Dosage 00:00:00 [facility] HIB 3 Dose Schedule 1998-03-17 Completed [facility]ive rsity of 00:00:00 [facility] Polio (IPV/OPV) 1998-03-17 Completed [facility] 00:00:00 [facility] Hep B, Adol or Pedi 1998-03-17 Completed [facility]ive rsity of Dosage 00:00:00 [facility] HIB 3 Dose Schedule 1998-03-17 Completed [facility]ive rsity of 00:00:00 [facility] Polio (IPV/OPV) 1998-03-17 Completed [facility] 00:00:00 [facility] Hep B, Adol or Pedi 1998-03-17 Completed [facility] rsity of Dosage 00:00:00 [facility] HIB 3 Dose Schedule 1998-03-17 Completed [facility] rsity of 00:00:00 [facility] Polio (IPV/OPV) 1998-03-17 Completed [facility] 00:00:00 [facility] Hep B, Adol or Pedi 1998-03-17 Completed [facility] rsity of Dosage 00:00:00 [facility] HIB 3 Dose Schedule 1998-03-17 Completed [facility]ive rsity of 00:00:00 [facility] Polio (IPV/OPV) 1998-03-17 Completed [facility] 00:00:00 [facility] Hep B, Adol or Pedi 1998-03-17 Completed [facility]ive rsity of Dosage 00:00:00 [facility] HIB 3 Dose Schedule 1998-03-17 Completed [facility]ive rsity of 00:00:00 [facility] Polio (IPV/OPV) 1998-03-17 Completed [facility] 00:00:00 [facility] DTaP, Unspecified 1998-03-17 Completed [facility] it[facility] of Formulation 00:00:00 [facility] Haemophilus 1998-03-17 Completed University of influenzae type b 00:00:00 [facility] edical vaccine, conjugate Branch unspecified formulation HIB 4 Dose Schedule 1998-03-17 Completed Unive rsity of 00:00:00 [facility] IPV 1998-03-17 Completed [facility] of 00:00:00 [facility] Hep B, Adol or Pedi 1998-03-17 Completed [facility]ive rsity of Dosage 00:00:00 [facility] HIB 3 Dose Schedule 1998-03-17 Completed [facility]ive rsity of 00:00:00 [facility] Polio (IPV/OPV) 1998-03-17 Completed [facility] 00:00:00 [facility] DTaP, Unspecified 1998-03-17 Completed [facility] it[facility] of Formulation 00:00:00 [facility] Haemophilus 1998-03-17 Completed [facility] of influenzae type b 00:00:00 [facility] vaccine, conjugate Branch unspecified formulation HIB 4 Dose Schedule 1998-03-17 Completed [facility]ive rsity of 00:00:00 [facility] IPV 1998-03-17 Completed [facility] of 00:00:00 [facility] Hep B, Adol or Pedi 1998-03-17 Completed [facility]ive rsity of Dosage 00:00:00 [facility] HIB 3 Dose Schedule 1998-03-17 Completed [facility]ive rsity of 00:00:00 [facility] Polio (IPV/OPV) 1998-03-17 Completed [facility] 00:00:00 [facility] DTaP, Unspecified 1998-03-17 Completed [facility] it[facility] Formulation 00:00:00 [facility] Haemophilus 1998-03-17 Completed [facility] influenzae type b 00:00:00 [facility] vaccine, conjugate Branch unspecified formulation HIB 4 Dose Schedule 1998-03-17 Completed [facility]ive rsity of 00:00:00 [facility] IPV 1998-03-17 Completed [facility] of 00:00:00 [facility] Hep B, Adol or Pedi 1998-03-17 Completed [facility]ive rsity of Dosage 00:00:00 [facility] HIB 3 Dose Schedule 1998-03-17 Completed [facility]ive rsity of 00:00:00 [facility] Polio (IPV/OPV) 1998-03-17 Completed [facility] 00:00:00 [facility] DTaP, Unspecified 1998-03-17 Completed [facility] Formulation 00:00:00 [facility] Haemophilus 1998-03-17 Completed [facility] influenzae type b 00:00:00 [facility] vaccine, conjugate Branch unspecified formulation HIB 4 Dose Schedule 1998-03-17 Completed [facility]ive rsity of 00:00:00 [facility] IPV 1998-03-17 Completed [facility] 00:00:00 [facility] Hep B, Adol or Pedi 1998-03-17 Completed [facility] rsity of Dosage 00:00:00 [facility] HIB 3 Dose Schedule 1998-03-17 Completed [facility] rsity of 00:00:00 [facility] Polio (IPV/OPV) 1998-03-17 Completed [facility] 00:00:00 [facility] DTaP, Unspecified 1998-03-17 Completed [facility] of Formulation 00:00:00 [facility] Haemophilus 1998-03-17 Completed [facility] of influenzae type b 00:00:00 [place] [facility] vaccine, conjugate Branch unspecified formulation HIB 4 Dose Schedule 1998-03-17 Completed [facility] rsity of 00:00:00 [facility] IPV 1998-03-17 Completed [facility] of 00:00:00 [facility] Hep B, Adol or Pedi 1998-03-17 Completed [facility] rsity of Dosage 00:00:00 [facility] HIB 3 Dose Schedule 1998-03-17 Completed [facility]ive rsity of 00:00:00 [facility] Polio (IPV/OPV) 1998-03-17 Completed [facility] 00:00:00 [facility] DTaP, Unspecified 1998-03-17 Completed [facility] it[facility] of Formulation 00:00:00 [facility] Haemophilus 1998-03-17 Completed [facility] of influenzae type b 00:00:00 [facility] vaccine, conjugate Branch unspecified formulation HIB 4 Dose Schedule 1998-03-17 Completed [facility]ive rsity of 00:00:00 [facility] IPV 1998-03-17 Completed [facility] of 00:00:00 [facility] Hep B, Adol or Pedi 1998-03-17 Completed [facility]ive rsity of Dosage 00:00:00 [facility] HIB 3 Dose Schedule 1998-03-17 Completed [facility]ive rsity of 00:00:00 [facility] Polio (IPV/OPV) 1998-03-17 Completed [facility] 00:00:00 [facility] DTaP, Unspecified 1998-03-17 Completed [facility] of Formulation 00:00:00 [facility] Haemophilus 1998-03-17 Completed [facility] influenzae type b 00:00:00 [place] [facility] vaccine, conjugate Branch unspecified formulation HIB 4 Dose Schedule 1998-03-17 Completed Unive rsity of 00:00:00 [facility] IPV 1998-03-17 Completed [facility] of 00:00:00 [facility] Hep B, Adol or Pedi 1998-03-17 Completed [facility]ive rsity of Dosage 00:00:00 [facility] HIB 3 Dose Schedule 1998-03-17 Completed [facility]ive rsity of 00:00:00 [facility] Polio (IPV/OPV) 1998-03-17 Completed [facility] 00:00:00 [facility] DTaP, Unspecified 1998-03-17 Completed [facility] of Formulation 00:00:00 [facility] Haemophilus 1998-03-17 Completed [facility] of influenzae type b 00:00:00 [facility] edical vaccine, conjugate Branch unspecified formulation HIB 4 Dose Schedule 1998-03-17 Completed [facility]ive rsity of 00:00:00 [facility] IPV 1998-03-17 Completed [facility] of 00:00:00 [facility] Hep B, Adol or Pedi 1998-03-17 Completed [facility] rsity of Dosage 00:00:00 [facility] HIB 3 Dose Schedule 1998-03-17 Completed [facility] rsity of 00:00:00 [facility] Polio (IPV/OPV) 1998-03-17 Completed [facility] 00:00:00 [facility] DTaP, Unspecified 1998-03-17 Completed [facility] of Formulation 00:00:00 [facility] Haemophilus 1998-03-17 Completed [facility] of influenzae type b 00:00:00 [facility] edical vaccine, conjugate Branch unspecified formulation HIB 4 Dose Schedule 1998-03-17 Completed [facility]ive rsity of 00:00:00 [facility] IPV 1998-03-17 Completed [facility] of 00:00:00 [facility] Hep B, Adol or Pedi 1998-03-17 Completed [facility] rsity of Dosage 00:00:00 [facility] HIB 3 Dose Schedule 1998-03-17 Completed [facility] rsity of 00:00:00 [facility] Polio (IPV/OPV) 1998-03-17 Completed [facility] 00:00:00 [facility] DTaP, Unspecified 1998-03-17 Completed [facility] of Formulation 00:00:00 [facility] Haemophilus 1998-03-17 Completed [facility] of influenzae type b 00:00:00 [facility] edical vaccine, conjugate Branch unspecified formulation HIB 4 Dose Schedule 1998-03-17 Completed [facility]ive rsity of 00:00:00 [facility] IPV 1998-03-17 Completed [facility] of 00:00:00 [facility] Hep B, Adol or Pedi 1998-03-17 Completed [facility] rsity of Dosage 00:00:00 [facility] HIB 3 Dose Schedule 1998-03-17 Completed [facility] rsity of 00:00:00 [facility] Polio (IPV/OPV) 1998-03-17 Completed [facility] 00:00:00 [facility] DTaP, Unspecified 1998-03-17 Completed [facility] of Formulation 00:00:00 [facility] Haemophilus 1998-03-17 Completed [facility] of influenzae type b 00:00:00 [facility] edical vaccine, conjugate Branch unspecified formulation HIB 4 Dose Schedule 1998-03-17 Completed [facility] rsity of 00:00:00 [facility] IPV 1998-03-17 Completed [facility] of 00:00:00 [facility] Hep B, Adol or Pedi 1998-03-17 Completed [facility] rsity of Dosage 00:00:00 [facility] HIB 3 Dose Schedule 1998-03-17 Completed [facility] rsity of 00:00:00 [facility] Polio (IPV/OPV) 1998-03-17 Completed [facility] 00:00:00 [facility] DTaP, Unspecified 1998-03-17 Completed [facility] of Formulation 00:00:00 [facility] Haemophilus 1998-03-17 Completed [facility] of influenzae type b 00:00:00 [facility] edical vaccine, conjugate Branch unspecified formulation HIB 4 Dose Schedule 1998-03-17 Completed [facility]ive rsity of 00:00:00 [facility] IPV 1998-03-17 Completed [facility] of 00:00:00 [facility] Hep B, Adol or Pedi 1998-03-17 Completed [facility] rsity of Dosage 00:00:00 [facility] HIB 3 Dose Schedule 1998-03-17 Completed [facility] rsity of 00:00:00 [facility] Polio (IPV/OPV) 1998-03-17 Completed [facility] 00:00:00 [facility] DTaP, Unspecified 1998-03-17 Completed [facility] of Formulation 00:00:00 [facility] Haemophilus 1998-03-17 Completed [facility] of influenzae type b 00:00:00 [facility] edical vaccine, conjugate Branch unspecified formulation HIB 4 Dose Schedule 1998-03-17 Completed [facility]ive rsity of 00:00:00 [facility] IPV 1998-03-17 Completed [facility] of 00:00:00 [facility] Hep B, Adol or Pedi 1998-03-17 Completed [facility] rsity of Dosage 00:00:00 [facility] HIB 3 Dose Schedule 1998-03-17 Completed [facility] rsity of 00:00:00 [facility] Polio (IPV/OPV) 1998-03-17 Completed [facility] 00:00:00 [facility] DTaP, Unspecified 1998-03-17 Completed [facility] it[facility] of Formulation 00:00:00 [facility] Haemophilus 1998-03-17 Completed [facility] of influenzae type b 00:00:00 [facility] edical vaccine, conjugate Branch unspecified formulation HIB 4 Dose Schedule 1998-03-17 Completed [facility] rsity of 00:00:00 [facility] IPV 1998-03-17 Completed [facility] of 00:00:00 [facility] Hep B, Adol or Pedi 1998-03-17 Completed [facility] rsity of Dosage 00:00:00 [facility] HIB 3 Dose Schedule 1998-03-17 Completed [facility] rsity of 00:00:00 [facility] Polio (IPV/OPV) 1998-03-17 Completed [facility] 00:00:00 [facility] DTaP, Unspecified 1998-03-17 Completed [facility] of Formulation 00:00:00 [facility] Haemophilus 1998-03-17 Completed [facility] of influenzae type b 00:00:00 [facility] edical vaccine, conjugate Branch unspecified formulation HIB 4 Dose Schedule 1998-03-17 Completed [facility] rsity of 00:00:00 [facility] IPV 1998-03-17 Completed [facility] of 00:00:00 [facility] Hep B, Adol or Pedi 1998-03-17 Completed [facility] rsity of Dosage 00:00:00 [facility] HIB 3 Dose Schedule 1998-03-17 Completed [facility] rsity of 00:00:00 [facility] Polio (IPV/OPV) 1998-03-17 Completed [facility] 00:00:00 [facility] DTaP, Unspecified 1998-03-17 Completed [facility] of Formulation 00:00:00 [facility] Haemophilus 1998-03-17 Completed [facility] influenzae type b 00:00:00 [place] [facility] vaccine, conjugate Branch unspecified formulation HIB 4 Dose Schedule 1998-03-17 Completed [facility]ive rsity of 00:00:00 [facility] IPV 1998-03-17 Completed [facility] 00:00:00 [facility] Hep B, Adol or Pedi 1998-03-17 Completed [facility] rsity of Dosage 00:00:00 [facility] HIB 3 Dose Schedule 1998-03-17 Completed [facility] rsity of 00:00:00 [facility] Polio (IPV/OPV) 1998-03-17 Completed [facility] 00:00:00 [facility] DTaP, Unspecified 1998-03-17 Completed [facility]y of Formulation 00:00:00 [facility] Haemophilus 1998-03-17 Completed [facility] of influenzae type b 00:00:00 [facility] edical vaccine, conjugate Branch unspecified formulation HIB 4 Dose Schedule 1998-03-17 Completed Un[facility] rsity of 00:00:00 [facility] IPV 1998-03-17 Completed [facility] of 00:00:00 [facility] Hep B, Adol or Pedi 1998-03-17 Completed Unive rsity of Dosage 00:00:00 [facility] HIB 3 Dose Schedule 1998-03-17 Completed [facility] rsity of 00:00:00 [facility] Polio (IPV/OPV) 1998-03-17 Completed [facility] 00:00:00 [facility] DTaP, Unspecified 1998-03-17 Completed [facility] of Formulation 00:00:00 [facility] Haemophilus 1998-03-17 Completed [facility] of influenzae type b 00:00:00 [place] [facility] vaccine, conjugate Branch unspecified formulation HIB 4 Dose Schedule 1998-03-17 Completed [facility] rsity of 00:00:00 [facility] IPV 1998-03-17 Completed [facility] 00:00:00 [facility] Hep B, Adol or Pedi 1998-03-17 Completed Unive rsity of Dosage 00:00:00 [facility] HIB 3 Dose Schedule 1998-03-17 Completed [facility] rsity of 00:00:00 [facility] Polio (IPV/OPV) 1998-03-17 Completed [facility] 00:00:00 [facility] DTaP, Unspecified 1998-03-17 Completed Univers ity of Formulation 00:00:00 [facility] Haemophilus 1998-03-17 Completed [facility] of influenzae type b 00:00:00 [place] [facility] vaccine, conjugate Branch unspecified formulation HIB 4 Dose Schedule 1998-03-17 Completed [facility] rsity of 00:00:00 [facility] IPV 1998-03-17 Completed [facility] 00:00:00 [facility] Hep B, Adol or Pedi 1998-03-17 Completed [facility] rsity of Dosage 00:00:00 [facility] HIB 3 Dose Schedule 1998-03-17 Completed [facility] rsity of 00:00:00 [facility] Polio (IPV/OPV) 1998-03-17 Completed [facility] 00:00:00 [facility] DTaP, Unspecified 1998-03-17 Completed [facility] Formulation 00:00:00 [facility] Haemophilus 1998-03-17 Completed [facility] of influenzae type b 00:00:00 [facility] edical vaccine, conjugate Branch unspecified formulation HIB 4 Dose Schedule 1998-03-17 Completed [facility] rsity of 00:00:00 [facility] IPV 1998-03-17 Completed [facility] 00:00:00 [facility] Hep B, Adol or Pedi 1998-03-17 Completed [facility] rsity of Dosage 00:00:00 [facility] HIB 3 Dose Schedule 1998-03-17 Completed [facility] rsity of 00:00:00 [facility] Polio (IPV/OPV) 1998-03-17 Completed [facility] 00:00:00 [facility] DTaP, Unspecified 1998-03-17 Completed [facility] Formulation 00:00:00 [facility] Haemophilus 1998-03-17 Completed [facility] of influenzae type b 00:00:00 [facility] edical vaccine, conjugate Branch unspecified formulation HIB 4 Dose Schedule 1998-03-17 Completed [facility] rsity of 00:00:00 [facility] IPV 1998-03-17 Completed [facility] 00:00:00 [facility] Hep B, Adol or Pedi 1998-03-17 Completed [facility] rsity of Dosage 00:00:00 [facility] HIB 3 Dose Schedule 1998-03-17 Completed [facility] rs[facility] of 00:00:00 [facility] Polio (IPV/OPV) 1998-03-17 Completed [facility] 00:00:00 [facility] DTaP, Unspecified 1998-03-17 Completed [facility] Formulation 00:00:00 [facility] Haemophilus 1998-03-17 Completed [facility] influenzae type b 00:00:00 [place] [facility] vaccine, conjugate Branch unspecified formulation HIB 4 Dose Schedule 1998-03-17 Completed [facility] of 00:00:00 [facility] IPV 1998-03-17 Completed [facility] 00:00:00 [facility] Hep B, Adol or Pedi 1998-03-17 Completed [facility] of Dosage 00:00:00 [facility] HIB 3 Dose Schedule 1998-03-17 Completed Unive rsity of 00:00:00 [facility] Polio (IPV/OPV) 1998-03-17 Completed Universit y of 00:00:00 [facility] DTaP, Unspecified 1998-03-17 Completed Univers ity of Formulation 00:00:00 [facility] Haemophilus 1998-03-17 Completed University of influenzae type b 00:00:00 [place] [facility] vaccine, conjugate Branch unspecified formulation HIB 4 Dose Schedule 1998-03-17 Completed Unive rsity of 00:00:00 [facility] IPV 1998-03-17 Completed University of 00:00:00 [facility] Hep B, Adol or Pedi 1998-03-17 Completed Unive rsity of Dosage 00:00:00 [facility] HIB 3 Dose Schedule 1998-03-17 Completed Unive rsity of 00:00:00 [facility] Polio (IPV/OPV) 1998-03-17 Completed Universit y of 00:00:00 [facility] DTaP, Unspecified 1998-03-17 Completed Univers ity of Formulation 00:00:00 [facility] Haemophilus 1998-03-17 Completed University of influenzae type b 00:00:00 [place] [facility] vaccine, conjugate Branch unspecified formulation HIB 4 Dose Schedule 1998-03-17 Completed Unive rsity of 00:00:00 [facility] IPV 1998-03-17 Completed University of 00:00:00 [facility] Hep B, Adol or Pedi 1998-03-17 Completed Unive rsity of Dosage 00:00:00 [facility] HIB 3 Dose Schedule 1998-03-17 Completed Unive rsity of 00:00:00 [facility] Polio (IPV/OPV) 1998-03-17 Completed Universit y of 00:00:00 [facility] DTaP, Unspecified 1998-03-17 Completed Univers ity of Formulation 00:00:00 [facility] Haemophilus 1998-03-17 Completed University of influenzae type b 00:00:00 [facility] edical vaccine, conjugate Branch unspecified formulation HIB 4 Dose Schedule 1998-03-17 Completed Unive rsity of 00:00:00 [facility] IPV 1998-03-17 Completed University of 00:00:00 [facility] DTAP 1998-02-25 Completed University of 00:00:00 [facility] DTAP 1998-02-25 Completed University of 00:00:00 [facility] DTAP 1998-02-25 Completed University of 00:00:00 [facility] DTAP 1998-02-25 Completed University of 00:00:00 [facility] DTAP 1998-02-25 Completed University of 00:00:00 [facility] DTAP 1998-02-25 Completed University of 00:00:00 [facility] DTAP 1998-02-25 Completed University of 00:00:00 [facility] DTAP 1998-02-25 Completed University of 00:00:00 [facility] DTAP 1998-02-25 Completed University of 00:00:00 [facility] DTAP 1998-02-25 Completed University of 00:00:00 [facility] DTAP 1998-02-25 Completed University of 00:00:00 [facility] DTAP 1998-02-25 Completed University of 00:00:00 [facility] DTAP 1998-02-25 Completed University of 00:00:00 [facility] DTAP 1998-02-25 Completed University of 00:00:00 [facility] DTAP 1998-02-25 Completed University of 00:00:00 [facility] DTAP 1998-02-25 Completed University of 00:00:00 [facility] DTAP 1998-02-25 Completed University of 00:00:00 [facility] DTAP 1998-02-25 Completed University of 00:00:00 [facility] DTAP 1998-02-25 Completed University of 00:00:00 [facility] DTAP 1998-02-25 Completed University of 00:00:00 [facility] DTAP 1998-02-25 Completed University of 00:00:00 [facility] DTAP 1998-02-25 Completed University of 00:00:00 [facility] DTAP 1998-02-25 Completed University of 00:00:00 [facility] DTAP 1998-02-25 Completed University of 00:00:00 [facility] DTAP 1998-02-25 Completed University of 00:00:00 [facility] DTAP 1998-02-25 Completed University of 00:00:00 [facility] DTAP 1998-02-25 Completed University of 00:00:00 [facility] DTAP 1998-02-25 Completed University of 00:00:00 [facility] DTAP 1998-02-25 Completed University of 00:00:00 [facility] DTAP 1998-02-25 Completed University of 00:00:00 [facility] DTAP 1998-02-25 Completed University of 00:00:00 [facility] DTAP 1998-02-25 Completed University of 00:00:00 [facility] Vital Signs Vital Name Observation Time Observation Value Comments Source Systolic blood 2023-01-17 18:42:00 122 mm[Hg] Univer sity of pressure [facility] Diastolic blood 2023-01-17 18:42:00 78 mm[Hg] Unive rsity of pressure [facility] Heart rate 2023-01-17 18:42:00 65 /min [facility] Body temperature 2023-01-17 18:42:00 36.56 [facility] 2023-01-17 18:42:00 18 /min Univ [facility] Oxygen saturation in 2023-01-17 18:42:00 98 /min [facility] Arterial blood by [facility] Pulse oximetry Branch Body height 2023-01-15 14:00:00 157.5 cm [facility] Body weight 2023-01-15 14:00:00 93.849 kg [facility] BMI 2023-01-15 14:00:00 37.84 kg/m2 [facility] Systolic blood 2023-01-10 21:15:00 118 mm[Hg] Univer sity of pressure [facility] Diastolic blood 2023-01-10 21:15:00 79 mm[Hg] Unive rsity of pressure [facility] Heart rate 2023-01-10 21:15:00 79 /min [facility] Body temperature 2023-01-10 21:15:00 35.61 Linda Univ ersity [facility] Respiratory rate 2023-01-10 21:15:00 18 /min Univ ersity of [facility] Body height 2023-01-10 21:15:00 157.5 cm Universi ty of [facility] Body weight 2023-01-10 21:15:00 95.89 kg Universi ty [facility] BMI 2023-01-10 21:15:00 38.67 kg/m2 [facility] Systolic blood 2022-12-29 20:23:00 108 mm[Hg] Univer sity of pressure [facility] Diastolic blood 2022-12-29 20:23:00 80 mm[Hg] Unive rsity of pressure [facility] Heart rate 2022-12-29 20:23:00 87 /min [facility]i [facility] Body temperature 2022-12-29 20:23:00 36.56 Linda Univ ersity [facility] Respiratory rate 2022-12-29 20:23:00 18 /min Univ ersity [facility] Body height 2022-12-29 20:23:00 154.9 cm [facility]i [facility] Body weight 2022-12-29 20:23:00 93.169 kg [facility]i [facility] BMI 2022-12-29 20:23:00 38.81 kg/m2 [facility] Systolic blood 2022-12-26 17:23:00 117 mm[Hg] Univer sity of pressure [facility] Diastolic blood 2022-12-26 17:23:00 71 mm[Hg] Unive rsity of pressure [facility] Heart rate 2022-12-26 17:23:00 86 /min Universi ty [facility] Body temperature 2022-12-26 17:23:00 35.94 Linda Univ ersity [facility] Respiratory rate 2022-12-26 17:23:00 18 /min Univ ersity of [facility] Body height 2022-12-26 17:23:00 154.9 cm Universi ty [facility] Body weight 2022-12-26 17:23:00 92.398 kg [facility]i [facility] BMI 2022-12-26 17:23:00 38.49 kg/m2 [facility] Systolic blood 2022-12-21 20:51:00 113 mm[Hg] Univer sity of pressure [facility] Diastolic blood 2022-12-21 20:51:00 72 mm[Hg] Unive rsity of pressure [facility] Heart rate 2022-12-21 20:51:00 88 /min Universi ty of [facility] Body temperature 2022-12-21 20:51:00 35.61 Linda Univ ersity of [facility] Body height 2022-12-21 20:51:00 157.5 cm Universi ty of [facility] Body weight 2022-12-21 20:51:00 92.625 kg Universi ty [facility] BMI 2022-12-21 20:51:00 37.35 kg/m2 [facility] Systolic blood 2022-12-14 17:08:00 111 mm[Hg] Univer sity of pressure [facility] Diastolic blood 2022-12-14 17:08:00 65 mm[Hg] Unive rsity of pressure [facility] Heart rate 2022-12-14 17:08:00 102 /min Universi ty [facility] Body temperature 2022-12-14 17:08:00 36.56 Linda Univ ersity of [facility] Respiratory rate 2022-12-14 17:08:00 20 /min Univ ersity of [facility] Body height 2022-12-14 17:08:00 157.5 cm Universi ty [facility] Body weight 2022-12-14 17:08:00 92.806 kg [facility]i ty [facility] BMI 2022-12-14 17:08:00 37.42 kg/m2 [facility] Systolic blood 2022-11-07 14:52:00 108 mm[Hg] Univer sity of pressure [facility] Diastolic blood 2022-11-07 14:52:00 69 mm[Hg] Unive rsity of pressure [facility] Heart rate 2022-11-07 14:52:00 84 /min Universi ty [facility] Body temperature 2022-11-07 14:52:00 36.39 Linda Univ ersity [facility] Respiratory rate 2022-11-07 14:52:00 16 /min Univ ersity [facility] Body height 2022-11-07 14:52:00 157.5 cm Universi [facility] Body weight 2022-11-07 14:52:00 90.266 kg [facility] BMI 2022-11-07 14:52:00 36.40 kg/m2 Universi ty of [facility] Systolic blood 2022-09-23 14:23:00 111 mm[Hg] Univer sity of pressure [facility] Diastolic blood 2022-09-23 14:23:00 63 mm[Hg] Unive rsity of pressure [facility] Heart rate 2022-09-23 14:23:00 77 /min Universi ty of [facility] Body temperature 2022-09-23 14:23:00 36 Linda Univ ersity [facility] Respiratory rate 2022-09-23 14:23:00 18 /min Univ ersity of [facility] Body height 2022-09-23 14:23:00 157.5 cm [facility]i [facility] Body weight 2022-09-23 14:23:00 85.531 kg [facility] BMI 2022-09-23 14:23:00 34.49 kg/m2 [facility] Systolic blood 2022-08-04 14:39:00 114 mm[Hg] Univer sity of pressure [facility] Diastolic blood 2022-08-04 14:39:00 74 mm[Hg] Unive rsity of pressure [facility] Heart rate 2022-08-04 14:39:00 84 /min [facility]i [facility] Body temperature 2022-08-04 14:39:00 36.28 Linda Univ ersity of [facility] Respiratory rate 2022-08-04 14:39:00 18 /min Univ ersity of [facility] Body height 2022-08-04 14:39:00 157.5 cm [facility]i [facility] Body weight 2022-08-04 14:39:00 81.733 kg [facility] BMI 2022-08-04 14:39:00 32.96 kg/m2 Universi ty [facility] Systolic blood 2022-07-15 13:18:00 109 mm[Hg] Univer sity of pressure [facility] Diastolic blood 2022-07-15 13:18:00 83 mm[Hg] Unive rsity of pressure [facility] Branch Heart rate 2022-07-15 13:18:00 90 /min Universi ty of [facility] Body temperature 2022-07-15 13:18:00 36.44 Linda Univ ersity of [facility] Respiratory rate 2022-07-15 13:18:00 18 /min Univ ersity of [facility] Body height 2022-07-15 13:18:00 157.5 cm [facility] [place] [facility] [place] Body weight 2022-07-15 13:18:[address] [facility] Branch BMI 2022-07-15 13:18:00 32.44 kg/m2 Universi ty of [facility] Branch Systolic blood 2022-06-30 13:02:00 128 mm[Hg] Univer sity of pressure [facility] Branch Diastolic blood 2022-06-30 13:02:00 77 mm[Hg] Unive rsity of pressure [facility] Heart rate 2022-06-30 13:02:00 78 /min Universi ty of [facility] Body temperature 2022-06-30 13:02:00 36.44 Linda Univ [address] of [facility] Branch Respiratory rate 2022-06-30 13:02:00 20 /min Univ ersity of [facility] Body height 2022-06-30 13:02:00 157.5 cm Universi ty of [facility] Body weight 2022-06-30 13:02:00 80.4 kg Universi ty of [facility] BMI 2022-06-30 13:02:00 32.42 kg/m2 Universi ty of [facility] Procedures Procedure Date / Time Performed Performing Clinician Sourc e EPIDURAL BLOOD PATCH 2023-01-17 16:33:00 Yessi Branch [facility] POCT GLUCOSE 2023-01-17 13:36:00 Lisa Asif [facility] (AUTOMATED) [facility] CBC WITHOUT DIFF 2023-01-17 07:40:00 [facility] POCT GLUCOSE 2023-01-16 17:49:00 Lisa Asif [facility] (AUTOMATED) [facility] POCT GLUCOSE 2023-01-16 12:02:00 Lisa Asif [facility] (AUTOMATED) [facility] VENOUS CORD GAS 2023-01-16 05:49:00 Sri [facility] CENTRAL NEURAXIAL 2023-01-16 01:51:00 Tommie Perez [facility] BLOCK [facility] POCT GLUCOSE 2023-01-15 23:39:00 Lisa Asif [facility] (AUTOMATED) [facility] POCT GLUCOSE 2023-01-15 19:10:00 Lisa Asif [facility] (AUTOMATED) [facility] HB ABO GROUPING 2023-01-15 16:43:00 Sri [facility] RHO (D) IMMUNE 2023-01-15 16:43:00 [facility] CBC WITH DIFF 2023-01-15 16:37:00 Sri [facility] HEPATITIS B SURFACE 2023-01-15 16:37:00 Sri [facility] ANTIGEN [facility] EXTRA TUBE SST 2023-01-15 16:37:[address] [facility] HIV 1/2 AG-AB WITH 2023-01-15 16:37:00 Sri [facility] REFLEX [facility] SYPHILIS IGG/IGM 2023-01-15 16:37:00 Sri [facility] NON-STRESS TEST 2023-01-10 22:12:15 Akinbrynpe Rogelio C [facility] POCT GLUCOSE 2023-01-10 21:56:00 Akinbrynpe Rogelio C [facility] (AUTOMATED) [facility] POCT URINALYSIS 2023-01-10 21:17:00 Akinsipe, Rog[facility]io [facility] NON-STRESS TEST 2022-12-29 21:11:02 Isidro Holden [facility] POCT URINALYSIS 2022-12-29 20:24:00 Akinsipe, Rogelio C [facility] NON-STRESS TEST 2022-12-26 18:59:39 Akinbrynpe Rogelio C [facility] CBC WITH DIFF 2022-12-26 18:05:00 Akinsipe Rogelio C Univers [facility] POCT GLUCOSE 2022-12-26 18:00:00 Akinsipe, Rogelio C Univers [facility] (AUTOMATED) [facility] POCT URINALYSIS 2022-12-26 17:25:00 Akinsipe, Rogelio C Univers [facility] DIABETES TESTING 2022-12-26 06:01:00 Doctor Unassigned, Chey [facility] REPORTS Name [facility] NON-STRESS TEST 2022-12-21 21:58:30 Akinsipe Rogelio C U [facility] POCT URINALYSIS 2022-12-21 20:53:00 Akinsipe, Rogelio C Univers [facility] POCT GLUCOSE(AGE 2022-12-14 17:59:00 Akinsipe Rogelio C [facility] >30DAYS) [facility] Branch POCT GLUCOSE 2022-12-14 17:40:00 Akinsipe Rogelio C [facility] (AUTOMATED) [facility] POCT URINALYSIS 2022-12-14 00:00:00 Akinsipe Rogelio C [facility] URINE CULTURE 2022-11-07 16:02:00 Sonia Jensen [facility] POCT URINALYSIS 2022-11-07 00:00:00 Akinsipe Rogelio C [facility] POCT GLUCOSE(AGE 2022-09-23 15:11:00 Akinsipe Rogelio C [facility] >30DAYS) [facility] Branch POCT GLUCOSE 2022-09-23 15:04:00 Akinsipe Rogelio C [facility] (AUTOMATED) [facility] POCT URINALYSIS 2022-09-23 14:23:00 Akinsipe, Rogelio C Univers [facility] POCT URINALYSIS 2022-08-04 14:46:00 Akinsipe Rogelio C Univers [facility] POCT URINALYSIS 2022-07-15 13:20:00 Akinsipe Rogelio C Univers [facility] DIABETES TESTING 2022-07-15 05:01:00 Doctor Unassigned, No Unive [facility] REPORTS Name Medical Branch POCT URINALYSIS 2022-06-30 13:04:00 Rogelio Sen [facility] Encounters Start End Encounter Admission Attending Care Care Encounter Source Date/Time Date/Time Type Type Clinicians Facility Department ID 2023-01-15 2023-01-17 Inpatient P EVERARDO LISA [facility] STACIA 1 [id number] Univers 07:32:00 14:50:00 LISA ASIF itmartha [facility] 2023-01-15 2023-01-17 [facility] MG Asif 1.2.840.114 [id number] Univers 07:32:00 14:50:00 Encounter Lisa OVALLES 350.1.13.10 ity of [facility] 4.2.7.2.686 [place] as [id number] [facility] gonzalo 134 Branch 2023-01-17 2023-01-17 Anesthesia Yessi Branch 1.2 .840.114 [id number] Univers 09:47:00 10:38:00 Event Eric Allred 350.1.13.10 ity of HOSPITAL 4.2.7.2.686 [place] as [id number] Medi gonzalo 140 Branch 2023-01-16 2023-01-16 Anesthesia MG Perez 1.2.840.114 [id number] Univers 20:02:43 20:02:43 Event Tommie OVALLES 350.1.13.10 it y of [facility] 4.2.7.2.686 [place] as [id number] [facility] gonzalo 132 Branch 2023-01-15 2023-01-16 Anesthesia Tommie Perez 1.2.840 .114 [id number] Univers 18:58:00 00:30:00 Event Elyssa Harper 350.1.1 3.10 ity of [facility] 4.2.7.2.686 [place] as [id number] [facility] 132 Branch 2023-01-13 2023-01-13 Outpatient R MCKINLEY [facility] [id number] Univers 08:00:00 08:00:00 ROGELIO wilson [facility] 2023-01-10 2023-01-10 Outpatient R MCKINLEY, [facility] [id number] Univers 15:15:00 15:58:49 ROGELIO zee o ricarda [facility] 2023-01-10 2023-01-10 Routine Mckinley, [facility] 1.2.419.433 [id number] Univers 15:15:00 15:58:49 Rogelio C MATERIALS PLANNER/PRODUCTION PLANNER 350.1.13.10 ity of Visit REGIONAL 4.2.7.2.686 [place] as MATERNAL [id number] [facility] ical & CHILD [address] [place] [address] 2023-01-06 2023-01-06 Outpatient R MCKINLEY, [facility] [id number] Univers 13:15:00 13:15:00 ROGELIO franciscomartha o ricarda [facility] 2023-01-03 2023-01-03 Outpatient R OLAMIDE [facility] [id number] Univers 09:30:00 09:30:00 CHERIE [facility] 2022-12-29 2022-12-29 Outpatient Мария HOLDEN [facility] [id number] Univers 13:45:00 15:01:21 ISIDRO [facility] 2022-12-29 2022-12-29 Routine Risk, Lrb-Frepr-Sg/High [facility] 1. 2.840.114 [id number] Univers 13:45:00 15:01:21 Isidro Holden MATERIALS PLANNER/PRODUCTION PLANNER 350.1.13.10 ity of Visit REGIONAL 4.2.7.2.686 [place] as MATERNAL [id number] [facility] & CHILD [address] [place] [address] 2022-12-27 2022-12-27 Telephone [facility] 1.2.840.114 [id number] Univers 00:00:00 00:00:00 Rogelio C MATERIALS PLANNER/PRODUCTION PLANNER 350.1.13.10 ity of REGIONAL 4.2.7.2.686 [place] as MATERNAL [id number] [facility] & CHILD [address] [place] [address] 2022-12-27 2022-12-27 [facility] 1.2.840.114 [id number] Univers 00:00:00 00:00:00 Rogelio C MATERIALS PLANNER/PRODUCTION PLANNER 350.1.13.10 ity of REGIONAL 4.2.7.2.686 [place] as MATERNAL [id number] [facility] ical & CHILD [address] [place] [address] 2022-12-26 2022-12-26 Routine Akinsipe, [facility] 1.2.100.795 [id number] Univers 11:00:00 12:09:15 Rogelio C MATERIALS PLANNER/PRODUCTION PLANNER 350.1.13.10 ity of Visit [facility] 4.2.7.2.686 [place] as MATERNAL [id number] [facility] ical & CHILD [address] [place] [address] 2022-12-26 2022-12-26 Post [employer] Intern[facility] 1.2 .840.114 [id number] Univers 10:15:00 10:45:00 Visit Jersey Dionicio Wilson MATERIALS PLANNER/PRODUCTION PLANNER 350.1.13.10 ity of [facility] 4.2.7.2.686 [place] as MATERNAL [id number] [facility] ical & CHILD [address] [facility] 2022-12-26 2022-12-26 [facility] [id number] Univers 10:15:00 10:44:41 DIONICIO zee [facility] 2022-12-26 2022-12-26 Orders Doctor MG 1.2.840.114 [id number] Univers 00:00:00 00:00:00 Only Unassigned, CHARLETTE 350.1.13.10 ity of [place] [facility] 4.2.7.2.686 [place] as [phone] [address] 2022-12-23 2022-12-23 Outpatient R AKINSIPE, [facility] [id number] Univers 13:00:00 13:00:00 ROGELIO ity o f [facility] 2022-12-21 2022-12-21 Outpatient R AKINSIPE, [facility] [id number] Univers 14:45:00 15:59:05 ROGELIO ity o f [facility] 2022-12-21 2022-12-21 Routine Akinsipe, [facility] 1.2.901.687 [id number] Univers 14:45:00 15:59:05 Rogelio C MATERIALS PLANNER/PRODUCTION PLANNER 350.1.13.10 ity of Visit REGIONAL 4.2.7.2.686 [place] as MATERNAL [id number] [facility] & CHILD [address] [place] [address] 2022-12-14 2022-12-14 Outpatient R MCKINLEY [facility] [id number] Univers 11:00:00 11:44:27 ROGELIO singhy o f [facility] 2022-12-14 2022-12-14 [facility] 1.2.271.624 [id number] Univers 11:00:00 11:44:27 Rogelio C MATERIALS PLANNER/PRODUCTION PLANNER 350.1.13.10 ity of Visit REGIONAL 4.2.7.2.686 [place] as MATERNAL [id number] [facility] & CHILD [address] [place] [address] 2022-12-14 2022-12-14 [facility] 1.2.076.066 [id number] Univers 00:00:00 00:00:00 Sonia MATERIALS PLANNER/PRODUCTION PLANNER 350.1.13.10 it y of REGIONAL 4.2.7.2.686 [place] as MATERNAL [id number] [facility] ical & CHILD [address] [facility] 2022-12-05 2022-12-05 Post Graduate Internship [facility]tras[facility] 1.2 .840.114 [id number] Univers 10:30:00 11:00:00 Visit Dionicio Doll MATERIALS PLANNER/PRODUCTION PLANNER 350.1.13.10 ity of REGIONAL 4.2.7.2.686 [place] as MATERNAL [id number] [facility] & CHILD [address] [facility] 2022-12-05 2022-12-05 Outpatient P JERSEY [facility] [id number] Univers 10:30:00 10:30:00 DIONICIO zee [facility] 2022-12-01 2022-12-01 Outpatient R MCKINLEY [facility] [id number] Univers 09:45:00 09:45:00 ROGELIO zee o f [facility] 2022-11-22 2022-11-22 Outpatient R OLAMIDE [facility] [id number] Univers 08:00:00 08:00:00 CHERIE [facility] 2022-11-10 2022-11-10 Outpatient R [facility] [id number] Univers 11:00:00 11:00:00 ity [facility] 2022-11-09 2022-11-09 Post [facility] 1.2 .840.114 [id number] Univers 13:00:00 13:30:00 Visit Logan Bustamante MATERIALS PLANNER/PRODUCTION PLANNER 350.1.13.10 ity of REGIONAL 4.2.7.2.686 [place] as MATERNAL [id number] [facility] & CHILD [address] [place] [address] 2022-11-09 2022-11-09 Outpatient P RYAN [facility] [id number] Univers 13:00:00 13:00:00 LOGAN [facility] 2022-11-07 2022-11-07 Outpatient R OLAMIDE [facility] [id number] Univers 08:30:00 09:35:21 CHERIE [facility] 2022-11-07 2022-11-07 Routine Provider, Michelle [facility] 1 .2.840.114 [id number] Univers 08:30:00 09:35:21 Cherie Quiñonez MATERIALS PLANNER/PRODUCTION PLANNER 350.1.13. 10 ity of Visit REGIONAL 4.2.7.2.686 [place] as MATERNAL [id number] [facility] & CHILD [address] [place] [address] 2022-11-04 2022-11-04 Outpatient R MCKINLEY [facility] [id number] Univers 08:00:00 08:00:00 ROGELIO ity o f [facility] 2022-10-24 2022-10-24 Outpatient P [facility] [id number] Univers 10:30:00 10:30:00 ity [facility] 2022-10-11 2022-10-11 Outpatient R MCKINLEY [facility] [id number] Univers 10:45:00 10:45:00 ROGELIO ity o f [facility] 2022-09-23 2022-09-23 Outpatient R [facility] [facility] [id number] Univers 09:30:00 10:05:44 ROGELIO itmartha o f [facility] 2022-09-23 2022-09-23 [facility] [place] 1.2.028.444 [id number] Univers 09:30:00 10:05:44 Rogeloi Armen MATERIALS PLANNER/PRODUCTION PLANNER 350.1.13.10 ity of Visit REGIONAL 4.2.7.2.686 [place] as MATERNAL [phone] [facility] ical & CHILD 107 [facility] 2022-09-19 2022-09-19 Outpatient R AKINSIPE, [facility] [id number] Univers 15:30:00 15:30:00 ROGELIO zee o ricarda [facility] 2022-09-08 2022-09-08 Outpatient R AKINSI, [facility] [id number] Univers 09:00:00 09:00:00 ORGELIO saadia o [facility] 2022-09-05 2022-09-05 Post Graduate Internship Ultrasound, [facility] 1.2 .840.114 [id number] Univers 08:45:00 10:00:00 Visit Nathan eMredith Sonali MATERIALS PLANNER/PRODUCTION PLANNER 350.1. 13.10 ity of REGIONAL 4.2.7.2.686 [place] MATERNAL [phone] [facility] & CHILD 369 [facility] 2022-09-05 2022-09-05 Outpatient P EVANS [facility] [id number] Univers 08:45:00 08:45:00 MARY it y of SSONALI [facility] 2022-09-05 2022-09-05 Abstract Nile [facility] 1.2.941.267 [id number] Univers 00:00:00 00:00:00 Vero MATERIALS PLANNER/PRODUCTION PLANNER 350.1.13.10 it y of REGIONAL 4.2.7.2.686 [place] MATERNAL [id number] [facility] ical & CHILD 124 [facility] 2022-08-18 2022-08-18 Outpatient R AKINSIPE, [facility] [id number] Univers 08:45:00 08:45:00 ROGELIO zee o [facility] 2022-08-04 2022-08-04 [facility] [id number] Univers 09:30:00 10:17:18 ROGELIO ity o [facility] 2022-08-04 2022-08-04 Routine Akinsipe, [facility] 1.2.334.102 [id number] Univers 09:30:00 10:17:18 Rogelio C MATERIALS PLANNER/PRODUCTION PLANNER 350.1.13.10 ity of Visit [facility] 4.2.7.2.686 [place] MATERNAL [id number] [facility] ical & CHILD [address] [place] [address] 2022-07-15 2022-07-15 Outpatient R JESUSPE, [facility] [id number] Univers 08:15:00 08:49:27 ROGELIO ity o [facility] 2022-07-15 2022-07-15 [facility] 1.2.706.172 [id number] Univers 08:15:00 08:49:27 Rogelio C MATERIALS PLANNER/PRODUCTION PLANNER 350.1.13.10 ity of Visit [facility] 4.2.7.2.686 [place] MATERNAL [phone] [facility] ical & CHILD [address] [place] [address] 2022-07-15 2022-07-15 Orders Doctor MG 1.2.840.114 [id number] Univers 00:00:00 00:00:00 Only Unassigned, CHARLETTE 350.1.13.10 ity of [place] [facility] 4.2.7.2.686 [place] as [phone] [address] 2022-07-14 2022-07-14 Outpatient R STEFAN, [facility] [id number] Univers 14:15:00 14:15:00 PRASAD ity [facility] 2022-07-13 2022-07-13 Outpatient R AKINSIPE, [facility] [id number] Univers 10:45:00 10:45:00 ROGELIO ity o [facility] 2022-06-30 2022-06-30 Outpatient R AKINSIPE, [facility] [id number] Univers 08:00:00 08:35:28 ROGELIO ity o [facility] 2022-06-30 2022-06-30 [facility] 1.2.803.992 [id number] Univers 08:00:00 08:35:28 Rogelio C MATERIALS PLANNER/PRODUCTION PLANNER 350.1.13.10 ity of Visit REGIONAL 4.2.7.2.686 [place] MATERNAL [phone] Med ical & CHILD 107 [facility] 2022-06-30 2022-06-30 Orders Doctor MG 1.2.840.114 [id number] Univers 00:00:00 00:00:00 Only Unassigned, CHARLETTE 350.1.13.10 ity of [place] [facility] 4.2.7.2.686 [place] as [phone] [facility] [address] 2022-06-28 2022-06-28 Abstract Mary [facility] 1.2.840.114 [id number] Univers 00:00:00 00:00:00 Sydney MATERIALS PLANNER/PRODUCTION PLANNER 350.1.13.10 it y of REGIONAL 4.2.7.2.686 [place] MATERNAL [phone] [facility] ical & CHILD 110 [facility] 2022-06-27 2022-06-27 Post Graduate Internship 3, [facility] Us Room UNIVERSIT 1 .2.840.114 [id number] Univers 13:30:00 14:00:00 Visit Lisa Asif [facility] 350.1.13.10 ity of [place] [id number] [facility] [address] 2022-06-27 2022-06-27 Outpatient P LISA ASIF [facility] [id number] Univers 13:30:00 13:41:54 LISA ASIF [facility] 2022-06-20 2022-06-20 Outpatient R [facility] [id number] Univers 09:45:00 09:45:00 saadia [facility] 2022-06-16 2022-06-16 Outpatient R SYDNEY HERNANDEZ [facility] [id number] Univers 14:30:00 15:46:57 SYDNEY HERNANDEZ [facility] 2022-06-16 2022-06-16 Routine Provider, Michelle [facility] 1 .2.840.114 [id number] Univers 14:30:00 15:46:57 Sydney Hernandez MATERIALS PLANNER/PRODUCTION PLANNER 350.1.13.10 ity of Visit REGIONAL 4.2.7.2.686 [place] MATERNAL [id number] [facility] & [address] 2022-06-13 2022-06-13 Outpatient R JERSEY [facility] [id number] Univers 15:30:00 17:16:08 DIONICIO zee [facility] 2022-06-13 2022-06-13 Telemedici Faculty, [facility] 1.2.840.114 [id number] Univers 15:30:00 16:00:00 ne Visit Dionicio Doll MATERIALS PLANNER/PRODUCTION PLANNER 350.1.13.10 ity of REGIONAL 4.2.7.2.686 [place] MATERNAL [id number] [facility] & [address] 2022-06-09 2022-06-09 Outpatient R MCKINLEY [facility] [id number] Univers 08:00:00 08:47:57 ROGELIO ity o f [facility] 2022-06-09 2022-06-09 [facility] 1.2.494.917 [id number] Univers 08:00:00 08:47:57 Rogelio Ayers MATERIALS PLANNER/PRODUCTION PLANNER 350.1.13.10 ity of Visit REGIONAL 4.2.7.2.686 [place] MATERNAL [phone] [address] 2022-06-09 2022-06-09 [facility] [id number] Univers 08:00:00 08:00:00 ROGELIO ity o f [facility] 2022-06-09 2022-06-09 Orders Doctor MG 1.2.840.114 [id number] Univers 00:00:00 00:00:00 Only Unassigned, CHARLETTE 350.1.13.10 ity of [place] [facility] 4.2.7.2.686 [place] as [id number] [address] 2022-06-03 2022-06-03 Outpatient R MCKINLEY [facility] [id number] Univers 08:15:00 08:15:00 ROGELIO zee o f [facility] 2022-05-31 2022-05-31 Telephone [facility] 1.2.840.114 [id number] Univers 00:00:00 00:00:00 Rogelio Ayers MATERIALS PLANNER/PRODUCTION PLANNER 350.1.13.10 ity of [facility] 4.2.7.2.686 [place] MATERNAL [id number] [facility] & CHILD [address] [place] [address] 2022-05-25 2022-05-25 [facility] [id number] Univers 14:15:00 15:56:44 ROGELIO ity o [facility] 2022-05-25 2022-05-25 Initial [facility] 1.2.878.530 [id number] Univers 14:15:00 15:56:44 Rogelio Ayers MATERIALS PLANNER/PRODUCTION PLANNER 350.1.13.10 ity of Visit [facility] 4.2.7.2.686 [place] MATERNAL [id number] [facility] & [address] 2022-05-25 2022-05-25 Outpatient R MCKINLEY, [facility] [id number] Univers 13:45:00 14:49:41 ROGELIO zee o [facility] 2022-05-25 2022-05-25 Orders Doctor MG 1.2.840.114 [id number] Univers 00:00:00 00:00:00 Only Unassigned, CHARLETTE 350.1.13.10 ity of [place] [facility] 4.2.7.2.686 [place] as [phone] [facility] [address] 2022-03-03 2022-03-03 Telephone Winston FAYE 1.2.840.114 [id number] Univers 00:00:00 00:00:00 , Nika FELIPE 350.1.13.10 ity of [place] [id number] [facility] [address] 2021-05-31 2021-05-31 [facility] [id number] Univers 13:30:00 13:30:00 ROGELIO singhy o [facility] 2021-05-27 2021-05-27 Outpatient R [facility] [id number] Univers 15:00:00 [facility]:00[facility]04 2021-03-04 Nurse Visit, Ang-Rmchp Nurse [facility] 1.2 .840.114 [id number] Univers 14:51:27 15:28:00 Visit Rogelio Sen MATERIALS PLANNER/PRODUCTION PLANNER 350.1.13. 10 [facility] 4.2.7.2.686 [place] as MATERNAL [id number] Med ical & CHILD [address] [place] [address] 2021-03-04 2021-03-04 Outpatient R [facility] [id number] Univers 15:00:00 15:00:00 [facility] 2020-12-10 2020-12-10 Office Mckinley [facility] 1.2.906.226 [id number] Univers 13:54:25 15:31:43 Visit Rogelio Ayers MATERIALS PLANNER/PRODUCTION PLANNER 350.1.13.10 [facility] 4.2.7.2.686 [place] MATERNAL [phone] Med ical & CHILD [address] [place] [address] 2020-12-10 2020-12-10 Office Mckinley [facility] 1.2.545.208 [id number] 13:54:25 15:31:43 Visit Rogelio Ayers MATERIALS PLANNER/PRODUCTION PLANNER 350.1.13.10 [facility] 4.2.7.2.686 MATERNAL [id number] & CHILD [address] [place] [address] 2020-12-10 2020-12-10 Outpatient R MCKINLEY [facility] [id number] Univers 14:15:00 14:15:00 ROGELIO saadia o [facility] 2020-12-10 2020-12-10 Outpatient R MCKINLEY [facility] [id number] Univers 14:15:00 14:15:00 ROGELIO saadia o [facility] 2020-09-16 2020-09-16 Outpatient R BRYCE [facility] [id number] Univers 14:15:00 14:15:00 ROSHUNDA itmartha o [facility] 2020-09-16 2020-09-16 Office Bryce [facility] 1.2.840.114 [id number] Univers 13:51:07 14:06:07 Visit Prisca Hsieh MATERIALS PLANNER/PRODUCTION PLANNER 350.1.13.10 ity of [facility] 4.2.7.2.686 [place] MATERNAL [id number] [facility] ical & CHILD [address] [place] [address] 2020-09-16 2020-09-16 Orders Doctor MG 1.2.840.114 [id number] Univers 00:00:00 00:00:00 Only Unassigned, CHARLETTE 350.1.13.10 ity of [place] [facility] 42.7.2.686 [place] as [phone] [facility] [address] 2019-12-24 2019-12-24 Nurse Visit, [facility] Nurse [facility] 1.2 .840.114 [id number] Univers 15:04:20 15:34:13 Visit Rogelio Sen MATERIALS PLANNER/PRODUCTION PLANNER 350.1.13. 10 ity of [facility] 4.2.7.2.686 [place] as MATERNAL [phone] [facility] ical & CHILD [address] [place] [address] 2019-08-04 2019-08-06 Hospital MG Jean 1.2.840.114 [id number] Univers 19:15:00 14:44:00 Encounter Divine OVALLES 350.1.13.10 ity of [address]686 [place] as [phone] [facility] [address] 2019-08-01 2019-08-01 Routine [facility] 1.2.285.980 [id number] Univers 10:39:14 11:38:43 Rogelio C MATERIALS PLANNER/PRODUCTION PLANNER 350.1.13.10 ity of Visit [facility] 4.2.7.2.686 [place] MATERNAL [id number] [facility] & CHILD [address] [place] [address] 2019-07-30 2019-07-30 Routine [facility] 1.2.321.682 [id number] Univers 12:55:15 14:06:16 Rogelio C MATERIALS PLANNER/PRODUCTION PLANNER 350.1.13.10 ity of Visit [facility] 4.2.7.2.686 [place] MATERNAL [phone] [facility] ical & CHILD [address] [place] [address] 2019-07-25 2019-07-[address] [facility], [facility] 1.2.099.768 [id number] Univers 13:44:20 15:02:34 Rogelio C MATERIALS PLANNER/PRODUCTION PLANNER 350.1.13.10 ity of Visit [facility] 4.2.7.2.686 [place] as MATERNAL [id number] [facility] ical & CHILD [address] [place] [address] 2019-07-22 2019-07-[address] [facility], [facility] 1.2.326.026 [id number] Univers 10:51:52 11:32:28 Rogelio C MATERIALS PLANNER/PRODUCTION PLANNER 350.1.13.10 ity of Visit [facility] 4.2.7.2.686 [place] as MATERNAL [id number] [facility] ical & CHILD [address] [place] [address] 2019-07-22 2019-07-22 Orders Doctor MG 1.2.840.114 [id number] Univers 00:00:00 00:00:00 Only Unassigned, CHARLETTE 350.1.13.10 ity of [place] [facility] 4.2.7.2.686 [place] as [id number] [facility] [address] 2019-07-19 2019-07-19 Abstract [facility] 1.2.840.114 [id number] Univers 00:00:00 00:00:00 Rogelio C MATERIALS PLANNER/PRODUCTION PLANNER 350.1.13.10 ity of [facility] 4.2.7.2.686 [place] as MATERNAL [phone] [facility] & CHILD [address] [place] [address] 2019-07-17 2019-07-17 Post Graduate Internship 3, [facility] Us Room UNIVERSIT 1 .2.840.114 [id number] Univers 15:35:40 16:05:40 Visit RosalbaDelilah [facility] 350.1.1 3.10 ity of Mookie Cormier [facility] 4.2.7.2.686 [place] [id number] [facility] [address] 2019-07-16 2019-07-[address] [facility], [facility] 1.2.840.114 [id number] Univers 00:00:00 00:00:00 Rogelio C MATERIALS PLANNER/PRODUCTION PLANNER 350.1.13.10 ity of REGIONAL 4.2.7.2.686 [place] as MATERNAL [phone] [facility] & CHILD [address] [place] [address] 2019-07-15 2019-07-15 Routine Akinsipe, [facility] 1.2.529.822 [id number] Univers 13:25:49 14:29:24 Rogelio C MATERIALS PLANNER/PRODUCTION PLANNER 350.1.13.10 ity of Visit REGIONAL 4.2.7.2.686 [place] as MATERNAL [id number] [facility] & CHILD [address] [place] [address] 2019-07-04 2019-07-04 Nurse MG Jorgensen 1.2.699.056 [id number] Univers 00:00:00 00:00:00 Triage Logan CHARLETTE 350.1.13.10 it y of HOSPITAL 4.2.7.2.686 [place] as [id number] [address] 2019-07-01 2019-07-01 Routine Akinpe, [facility] 1.2.098.207 [id number] Univers 12:21:42 12:57:48 Rogelio C MATERIALS PLANNER/PRODUCTION PLANNER 350.1.13.10 ity of Visit REGIONAL 4.2.7.2.686 [place] as MATERNAL [phone] [facility] & CHILD [address] [place] [address] 2019-07-01 2019-07-01 Orders Doctor MG 1.2.840.114 [id number] Univers 00:00:00 00:00:00 Only Unassigned, CHARLETTE 350.1.13.10 ity of [place] [facility] 4.2.7.2.686 [place] as [phone] [address] Results Test Description Test Time Test Comments Results Result Comments Source POCT GLUCOSE (AUTOMATED) 2023-01-17 13:41:52 Test Item Value Reference Range Interpretation Comme nts POCT GLU (test code = 7287367524) 92 mg/dL 70-110 Lab Interpretation (test code = 19080-6) Normal [facility]2023-[facility]-16 17:53:26 Test Item Value Reference Range Interpretation Comments POCT GLU (test code = 3712654024) 121 mg/dL 70-110 H Lab Interpretation (test code = Abnormal 50736-0) [facility] SYPHILIS IGG/[id number] 15:47:35 Test Item Value Reference Range Interpretation Comments Syphilis IgG/IgM (test Non-reactive Non-reactive code = 88374-6) YOBANY (test code = YOBANY) Non-reactive - No serologic evidence of T. pallidum infection. Cannot exclude incubating or early syphilis. Submit a second specimen in 2-4 weeks if syphilis is clinically suspected. Equivocal - Further testing to follow. Reactive - Further testing to follow. Lab Interpretation (test Normal code = 29571-1) [facility]2023-01-16 12:03:52 Test Item Value Reference Range Interpretation Comments POCT GLU (test code = 4394473339) 130 mg/dL 70-110 H Lab Interpretation (test code = Abnormal 70037-2) [facility] IMMUNE [id number] 10:56:10 Test Item Value Reference Range Interpretation Comments RHIG CANDIDATE? No- see comment Patient i s not a (test code = candidate for R hIg- 5055) Patient is Rh Positive.Perfor med at [facility] Laboratory Services - [facility] Blood [address] [place] [address]Mnho Free: [phone] A No. [id number] [facility] Center[facility] CORD [id number] 06:08:29 Test Item Value Reference Range Interpretation Comments BASE EXCESS, CORD -4.2 mEq/L QUES (test code = 9111599820) AC PH, CORD (BEAKER) 7.30 7.18-7.38 (test code = 1472083301) PC02, CORD (test code 46 See_Comment [Auto mated message] The = 5134088346) system which g enerated this result transmit trudy reference range : 32 - 66 mmHg. The refer ence range was not used to interpret this result as normal/abnormal . PO2, CORD (test code 17 See_Comment [Autom ated message] The = 2860836842) system which g enerated this result transmit trudy reference range : 10 - 30 mmHg. The refer ence range was not used to interpret this result as normal/abnormal . BICARBONATE, CORD 22 See_Comment [Automate d message] The (test code = system which ge nerated this 4285701250) result transmit trudy reference range : 17 - 27 mEq/L. The refe rence range was not used to interpret this result as normal/abnormal . [facility] [id number] 06:06:03 Test Item Value Reference Range Interpretation Comments VENOUS BASE EXCESS, -1.0 mEq/L CORD (test code = 2485710330) VENOUS PH, CORD (test 7.41 7.25-7.45 code = 1434442446) VENOUS PC02, CORD 37 See_Comment [Automate d message] The (test code = system which ge nerated 1042270929) this result tra nsmitted reference range : 27 - 49 mmHg. The refer ence range was not used to interpret this result as normal/abnormal . VENOUS PO2, CORD (test 29 See_Comment [Aut omated message] The code = 7689732400) system wh ich generated this result tra nsmitted reference range : 17 - 41 mmHg. The refer ence range was not used to interpret this result as normal/abnormal . VENOUS BICARBONATE, 23 See_Comment QUES [Au tomated message] CORD (test code = The system which generated 6969735449) this result tra nsmitted reference range : 12 - 29 mEq/L. The refe rence range was not used to interpret this result as normal/abnormal . [facility] GLUCOSE (AUTOMATED)2023-01-15 23:51:11 Test Item Value Reference Range Interpretation Comments POCT GLU (test code = 9301731436) 87 mg/dL 70-110 Lab Interpretation (test code = Normal 70736-9) [facility] GLUCOSE (AUTOMATED)2023-01-15 19:11:47 Test Item Value Reference Range Interpretation Comments POCT GLU (test code = 8987850866) 121 mg/dL 70-110 H Lab Interpretation (test code = Abnormal 78871-6) [facility]2 AG-AB WITH [id number] 18:30:11 Test Item Value Reference Range Interpretation Comments HIV 0.08 Negative Semi-quantitative (test code = 84268-5) YOBANY (test code = Non-reactive for HIV-1 YOBANY) antigen and HIV-1/HIV-2 antibodies. ?No laboratory evidence of HIV infection. ?Repeat in 2-4 weeks if acute HIV infection is suspected. [facility] CenterHepatitis B Surface [id number] 18:20:30 Test Item Value Reference Range Interpretation Comments HBsAg Semi-Quantitative (test code = 0.06 Negative 5195-3) [facility] CenterType and Screen - ONCE [id number] 17:22:16 Test Item Value Reference Range Interpretation Comments ABO & RH (test code O POSITIVE Performe d at [facility] = 20) Laboratory Serv [facility] Blood Bank3 [address] [facility] [address]Memq Free: [phone] A No. [id number] IAT (test code = Negative Performed a t [facility] 1185) Laboratory Serv [facility] Blood Bank3 01 [facility] s [address]Ciad Free: [phone] A No. [id number] [facility] CenterCBC with [id number] 16:59:29 Test Item Value Reference Range Interpretation Comments WBC (test code = 7.68 See_Comment [Automated 4624-2) message] The sy stem which generated this result transmitted reference range : 4.30 - 11.10 10*3/?L. The reference range was not used to interpret this result as normal/abnormal . RBC (test code = 4.79 See_Comment [Automated 359-8) message] The sy stem which generated this result transmitted reference range : 3.93 - 5.25 10*6/?L. The reference range was not used to interpret this result as normal/abnormal . HGB (test code = 11.8 g/dL 11.6-15.0 718-7) HCT (test code = 36.7 % 35.7-45.2 4544-3) MCV (test code = 76.6 fL 80.6-95.5 L 787-2) MCH (test code = 24.6 pg 25.9-32.8 L 785-6) MCHC (test code = 32.2 g/dL 31.6-35.1 786-4) RDW-SD (test code = 49.7 fL 39.0-49.9 65979-9) RDW-CV (test code = 18.5 % 12.0-15.5 H 788-0) PLT (test code = 253 See_Comment [Automated 017-3) message] The sy stem which generated this result transmitted reference range : 166 - 358 10*3/ ?L. The reference r gema was not used to interpret this result as normal/abnormal . MPV (test code = 9.7 fL 9.5-12.9 71391-5) NRBC/100 WBC (test 0.0 See_Comment [Automat ed code = 5401428001) message] The system which generated this result transmitted reference range : 0.0 - 10.0 /100 WBCs. The refer ence range was not u sed to interpret th is result as normal/abnormal . NRBC x10^3 (test code See_Comment [Auto mated = 0625400446) message] The s ystem which generated this result transmitted reference range : 10*3/?L. The reference range was not used to interpret this result as normal/abnormal . GRAN MAT (NEUT) % 54.6 % (test code = 770-8) IMM GRAN % (test code 0.30 % = 6846427241) LYMPH % (test code = 38.8 % 736-9) MONO % (test code = 5.6 % 5905-5) EOS % (test code = 0.3 % 713-8) BASO % (test code = 0.4 % 706-2) GRAN MAT x10^3(ANC) 4.20 10*3/uL 1.88-7.09 (test code = 0704009476) IMM GRAN x10^3 (test 0.00-0.06 code = 8683649786) LYMPH x10^3 (test code 2.98 10*3/uL 1.32-3.29 = 731-0) MONO x10^3 (test code 0.43 10*3/uL 0.33-0.92 = 742-7) EOS x10^3 (test code = 0.03-0.39 L 711-2) BASO x10^3 (test code 0.03 10*3/uL 0.01-0.07 = 704-7) Lab Interpretation Abnormal (test code = 66366-7) [facility] GLUCOSE (AUTOMATED)2023-01-10 21:59:03 Test Item Value Reference Range Interpretation Comments POCT GLU (test code = 1370218618) 97 mg/dL 70-110 Lab Interpretation (test code = Normal 51967-2) [facility] URINALYSIS W SPECIFIC [id number] 21:17:00 Test Item Value Reference Range Interpretation Comments POCT U SP GRAV (test code = 3255) . 1.005-1.025 POCT PH U (test code = 3254) . 5-8 POCT U LEUK EST (test code = 3263) . Negative - Negative POCT U NIT (test code = 3262) . Negative - Negative POCT U PROT (test code = 3259) neg Negative - Negative POCT U GLU (test [...] POCT U APPEAR (test code = 3267) . [facility] URINALYSIS W SPECIFIC [id number] 20:24:00 Test Item Value Reference Range Interpretation Comments POCT U SP GRAV (test code = 3255) . 1.005-1.025 POCT PH U (test code = 3254) 7 mg/dl 5-8 POCT U LEUK EST (test code = 2+ Negative - Negative 3263) POCT U NIT (test code = 3262) Neg Negative - Negative POCT U PROT (test code = 3259) Trace Negative - Negative POCT U GLU (test code = 3256) Neg Negative - Negative POCT U KETONE (test code = 3258) None Negative - Negative POCT U UROBILI (test code = 3260) . 0.2-1 POCT U BILI (test code = 3261) . Negative - Negative POCT U BLD (test code = 3257) Trace Negative - Negative POCT U COLOR (test code = 3266) POCT U APPEAR (test code = 3267) [facility] WITH [id number] 06:10:54 Test Item Value Reference Range Interpretation Comments WBC (test code = 11.52 See_Comment H [Automated 6690-2) message] The sy stem which generated this result transmitted reference range : 4.30 - 11.10 10*3/?L. The reference range was not used to interpret this result as normal/abnormal . RBC (test code = 4.11 See_Comment [Automated 789-8) message] The sy stem which generated this result transmitted reference range : 3.93 - 5.25 10*6/?L. The reference range was not used to interpret this result as normal/abnormal . HGB (test code = 10.0 g/dL 11.6-15.0 L 718-7) HCT (test code = 31.4 % 35.7-45.2 L 4544-3) MCV (test code = 76.4 fL 80.6-95.5 L 787-2) MCH (test code = 24.3 pg 25.9-32.8 L 785-6) MCHC (test code = 31.8 g/dL 31.6-35.1 786-4) RDW-SD (test code = 39.1 fL 39.0-49.9 70605-0) RDW-CV (test code = 14.3 % 12.0-15.5 788-0) PLT (test code = 243 See_Comment [Automated 777-3) message] The sy stem which generated this result transmitted reference range : 166 - 358 10*3/ ?L. The reference r gema was not used to interpret this result as normal/abnormal . MPV (test code = 10.6 fL 9.5-12.9 63402-4) NRBC/100 WBC (test 0.0 See_Comment [Automat ed code = 6221253251) message] The system which generated this result transmitted reference range : 0.0 - 10.0 /100 WBCs. The refer ence range was not u sed to interpret th is result as normal/abnormal . NRBC x10^3 (test code See_Comment [Auto mated = [id number]) message] The s ystem which generated this result transmitted reference range : 10*3/?L. The reference range was not used to interpret this result as normal/abnormal . GRAN MAT (NEUT) % 61.1 % (test code = 770-8) IMM GRAN % (test code 0.40 % = 5012665045) LYMPH % (test code = 30.1 % 736-9) MONO % (test code = 7.3 % 5905-5) EOS % (test code = 0.8 % 713-8) BASO % (test code = 0.3 % 706-2) GRAN MAT x10^3(ANC) 7.03 10*3/uL 1.88-7.09 (test code = 3319948675) IMM GRAN x10^3 (test 0.05 10*3/uL 0.00-0.06 code = 7153351934) LYMPH x10^3 (test code 3.47 10*3/uL 1.32-3.29 H = 731-0) MONO x10^3 (test code 0.84 10*3/uL 0.33-0.92 = 742-7) EOS x10^3 (test code = 0.09 10*3/uL 0.03-0.39 711-2) BASO x10^3 (test code 0.04 10*3/uL 0.01-0.07 = 704-7) Lab Interpretation Abnormal (test code = 09564-6) [facility] GLUCOSE (AUTOMATED)2022-12-26 18:10:48 Test Item Value Reference Range Interpretation Comments POCT GLU (test code = 8765892745) 135 mg/dL 70-110 H Lab Interpretation (test code = Abnormal 83575-5) [facility] URINALYSIS W SPECIFIC [id number] 17:26:00 Test Item Value Reference Range Interpretation Comments POCT U SP GRAV (test code = 3255) . 1.005-1.025 POCT PH U (test code = 3254) . 5-8 POCT U LEUK EST (test code = 3263) . Negative - Negative POCT U NIT (test code = 3262) . Negative - Negative POCT U PROT (test code = 3259) 1+ Negative - Negative POCT U GLU (test code = 3256) 1+ Negative - Negative POCT U KETONE (test code = 3258) . Negative - Negative POCT U UROBILI (test code = 3260) . 0.2-1 POCT U BILI (test code = 3261) . Negative - Negative POCT U BLD (test code = 3257) . Negative - Negative POCT U COLOR (test code = 3266) . POCT U APPEAR (test code = 3267) . [facility] URINALYSIS W SPECIFIC [id number] 20:53:00 Test Item Value Reference Range Interpretation Comments [...] POCT U APPEAR (test code = 3267) [facility] URINALYSIS W SPECIFIC [id number] 20:53:00 Test Item Value Reference Range Interpretation Comments [...] POCT U APPEAR (test code = 3267) [facility] GLUCOSE (AUTOMATED)2022-12-14 19:05:33 Test Item Value Reference Range Interpretation Comments POCT GLU (test code = 1386856846) 143 mg/dL 70-110 H Lab Interpretation (test code = Abnormal 22321-0) [facility] GLUCOSE(AGE >30DAYS)2022-12-14 17:59:00 Test Item Value Reference Range Interpretation Comments POCT Glu (age>30days) (test code = 143 mg/dL 70-110 A 3342) Lab Interpretation (test code = Abnormal 54511-6) [facility] URINALYSIS W SPECIFIC [id number] 17:11:00 Test Item Value Reference Range Interpretation Comments POCT U SP GRAV (test code = . 1.005-1.025 3255) POCT PH U (test code = 3254) . 5-8 POCT U LEUK EST (test code = . Negative - Negative 3263) POCT U NIT (test code = 3262) . Negative - Negative POCT U PROT (test code = 3259) trace Negative - Negative POCT U GLU (test code = 3256) negative Negative - Negative POCT U KETONE (test code = 3258) . Negative - Negative POCT U UROBILI (test code = . 0.2-1 3260) POCT U BILI (test code = 3261) . Negative - Negative POCT U BLD (test code = 3257) . Negative - Negative POCT U COLOR (test code = 3266) . POCT U APPEAR (test code = 3267) . [facility] URINALYSIS W SPECIFIC [id number] 14:54:00 Test Item Value Reference Range Interpretation Comments [...] POCT U GLU (test code = 3256) Negative - Negative POCT U KETONE (test code = 3258) . Negative - Negative POCT U UROBILI (test code = 3260) . 0.2-1 POCT U BILI (test code = 3261) . Negative - Negative POCT U BLD (test code = 3257) . Negative - Negative POCT U COLOR (test code = 3266) . POCT U APPEAR (test code = 3267) . [facility] GLUCOSE(AGE >30DAYS)2022-09-23 15:11:00 Test Item Value Reference Range Interpretation Comments POCT Glu (age>30days) (test code = 90 mg/dL 70-110 3342) [facility] GLUCOSE (AUTOMATED)2022-09-23 15:08:07 Test Item Value Reference Range Interpretation Comments POCT GLU (test code = 2213153073) 90 mg/dL 70-110 Lab Interpretation (test code = Normal 08193-9) [facility] URINALYSIS W SPECIFIC [id number] 14:24:00 Test Item Value Reference Range Interpretation Comments [...] POCT U APPEAR (test code = 3267) . [facility] URINALYSIS W SPECIFIC [id number] 14:46:00 Test Item Value Reference Range Interpretation Comments POCT U SP GRAV (test code = 3255) . 1.005-1.025 POCT PH U (test code = 3254) . 5-8 POCT U LEUK EST (test code = 3263) . Negative - Negative POCT U NIT (test code = 3262) . Negative - Negative POCT U PROT (test code = 3259) 1+ Negative - Negative POCT U GLU (test [...] POCT U APPEAR (test code = 3267) . [facility] URINALYSIS W SPECIFIC [id number] 13:21:00 Test Item Value Reference Range Interpretation [...] POCT U APPEAR (test code = 3267) . [facility] URINALYSIS W SPECIFIC [id number] 13:05:00 Test Item Value Reference Range Interpretation Comments POCT U SP GRAV (test code = 3255) . 1.005-1.025 POCT PH U (test code = 3254) . 5-8 POCT U LEUK EST (test code = 3263) . Negative - Negative POCT U NIT (test code = 3262) . Negative - Negative POCT U PROT (test code = 3259) 1+ Negative - Negative POCT U GLU (test [...] POCT U APPEAR (test code = 3267) .. [facility]
[2023-01-20] MEDS ORDERED: NA CHLORIDE 0.9% 1,000 ML ONE (00:45)
[2023-01-20] MEDS ORDERED: dexAMETHasone 10 MG/ML VIAL ONE (00:45)
[2023-01-20] MEDS ORDERED: MORPHINE 4 MG/ML SYR ONE (00:45)
--- NOTE | 2023-01-20 01:26 | ER ---
Nurse's Notes [facility] Name: Enid Munguia Age: 27 yrs Sex: Female : 1995 Arrival Date: 01/19/2023 Time: 22:10 Bed 5 Private MD: Diagnosis: Cyixqlhx-Ohrl-tpecjonh Presentation: 01/19 22:27 Chief complaint: Patient states: "I had a baby and I have an epidural headache, and tw5 they tried to do a blood patch, but yesterday it burst. I still have a headache and I am feeling nauseous. ". Coronavirus screen: Vaccine status: Patient reports receiving the 2nd dose of the covid vaccine. J N jAlexander Ebola Screen: Patient negative for fever greater than or equal to 101.5 degrees Fahrenheit, and additional compatible Ebola Virus Disease symptoms Patient denies exposure to infectious person. Patient denies travel to an Ebola-affected area in the 21 days before illness onset. Initial Sepsis Screen: Does the patient meet any 2 criteria? No. Patient's initial sepsis screen is negative. Does the patient have a suspected source of infection? No. Patient's initial sepsis screen is negative. Risk Assessment: Do you want to hurt yourself or someone else? Patient reports no desire to harm self or others. Onset of symptoms was January 15, 2023. 22:27 Method Of Arrival: Ambulatory tw5 22:27 Acuity: DERRELL 3 tw5 Triage Assessment: 22:32 General: Appears uncomfortable, Behavior is calm, cooperative, appropriate for age. tw5 Pain: Pain currently is 10 out of 10 on a pain scale. GI: Reports nausea. 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 - Social history:: Smoking status: Patient denies any tobacco usage or history of. - Family history:: not pertinent. - Hospitalizations: : No recent hospitalization is reported. Screenin/24 00:46 [facility] ED Fall Risk Assessment (Adult) Score/Fall Risk Level 0 - 2 = Low Risk. Abuse as6 screen: Denies threats or abuse. Denies injuries from another. Nutritional screening: No deficits noted. Tuberculosis screening: No symptoms or risk factors identified. Assessment: 00:46 General: Appears uncomfortable, Behavior is calm, cooperative. Pain: Complains of pain as6 in head. Neuro: Reports headache. Vital Signs: 01/19 22:27 BP 129 / 82; Pulse 83; Resp 18; Temp 98.2; Pulse Ox 100% on R/A; Weight 92.99 kg; tw5 Height 5 ft. 2 in. (157.48 cm); Pain 10/10; 01/20 00:46 BP 123 / 68; Pulse 75; Resp 18 S; Pulse Ox 97% on R/A; as6 01:25 BP 123 / 73; Pulse 81; Resp 19 S; Pulse Ox 97% on R/A; as6 01/19 22:27 Body Mass Index 37.49 (92.99 kg, 157.48 cm) tw5 Yasmin Coma Score: 01:23 Eye Response: spontaneous(4). Verbal Response: oriented(5). Motor Response: obeys rn commands(6). Total: 15. ED Course: 01/19 22:10 Patient arrived in ED. jj6 22:23 Abraham Short MD is Attending Physician. rn 22:32 Triage completed. tw5 22:32 Arm band placed on. tw5 23:49 Inserted saline lock: 20 gauge in left antecubital area, using aseptic technique. bc6 01/20 00:09 Simon Valenzuela, RN is Primary Nurse. as6 00:24 CT Head Brain wo Cont In Process Unspecified. EDMS 00:46 Bed in low position. Call light in reach. Side rails up X 1. as6 01:26 No provider procedures requiring assistance completed. as6 01:34 IV discontinued, intact, bleeding controlled, No redness/swelling at site. Pressure kd3 dressing applied. Administered Medications: 00:47 Drug: morphine 4 mg Route: IVP; Infused Over: 4 mins; Site: left antecubital; as6 01:34 Follow up: Response: No adverse reaction; Pain is decreased kd3 00:47 Drug: NS 0.9% 1000 ml Route: IV; Rate: 1000 ml; Site: left antecubital; as6 01:34 Follow up: IV Status: Completed infusion; IV Intake: 1000ml kd3 00:47 Drug: Decadron - Dexamethasone 10 mg Route: IVP; Site: left antecubital; as6 01:34 Follow up: Response: No adverse reaction; Pain is decreased kd3 Medication: 00:46 VIS not applicable for this client. as6 Intake: 01:34 IV: 1000ml; Total: 1000ml. kd3 Outcome: 01:25 Discharge ordered by . rn 01:25 Condition: stable as6 01:26 Discharged to home ambulatory. as6 01:34 Discharge instructions given to patient, Instructed on discharge instructions, follow kd3 up and referral plans. Demonstrated understanding of instructions, follow-up care. 01:35 Patient left the ED. kd3 Signatures: Dispatcher [employer] EDMS Abraham Short MD MD rn Wood, Tiffany tw5 Brenda Soriano jj6 Simon Valenzuela RN RN as6 Steffany Quesada RN RN kd3 Minda Caballero 6
--- NOTE | 2023-01-20 01:26 | EDPHYS ---
Physician Documentation [facility] Name: Enid Munguia Age: 27 yrs Sex: Female : 1995 Arrival Date: 01/19/2023 Time: 22:10 Bed 5 Private MD: ED Physician Abraham Short HPI: 01/19 22:34 This 27 yrs old Female presents to ER via Ambulatory with complaints of Nausea, rn Headache, 2 days post . 22:35 The patient describes the headache as aching. Onset: The symptoms/episode rn began/occurred 2 day(s) ago. Associated signs and symptoms: Pertinent negatives: fever, neck stiffness, rash, vision loss, weakness, vertigo. Severity of symptoms: At its worst the pain was moderate, in the emergency department the pain is unchanged. The symptoms are alleviated by nothing. the symptoms are aggravated by nothing. The patient has not experienced similar symptoms in the past. The patient has not recently seen a physician. Pt reports 2 days , had epidural, experienced spinal headache, got blood patch done. 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 - Social history:: Smoking status: Patient denies any tobacco usage or history of. - Family history:: not pertinent. - Hospitalizations: : No recent hospitalization is reported. ROS: 22:38 Constitutional: Negative for fever, chills, and weight loss, Eyes: Negative for injury, rn pain, redness, and discharge, Neck: Negative for injury, pain, and swelling, Cardiovascular: Negative for chest pain, palpitations, and edema, Respiratory: Negative for shortness of breath, cough, wheezing, and pleuritic chest pain, Abdomen/GI: Negative for abdominal pain, vomiting, diarrhea, and constipation, Back: Negative for injury and pain, MS/Extremity: Negative for injury and deformity, Skin: Negative for injury, rash, and discoloration, Neuro: Negative for weakness, numbness, tingling, and seizure. Exam: 22:38 Constitutional: This is a well developed, well nourished patient who is awake, alert, rn and in no acute distress. Head/Face: Normocephalic, atraumatic. Eyes: Pupils equal round and reactive to light, extra-ocular motions intact. Neck: Trachea midline, no masses palpated, and no cervical lymphadenopathy. Supple, full range of motion without nuchal rigidity, or vertebral point tenderness. No Meningismus. Cardiovascular: Regular rate and rhythm. No pulse deficits. Respiratory: No increased work of breathing, no retractions or nasal flaring. Skin: Warm, dry with normal turgor. Normal color with no rashes, no lesions, and no evidence of cellulitis. MS/ Extremity: Pulses equal, no cyanosis. Neurovascular intact. Full, normal range of motion. Equal circumference. Neuro: Awake and alert, GCS 15, oriented to person, place, time, and situation. Cranial nerves II-XII grossly intact. Motor strength 5/5 in all extremities. Sensory grossly intact. Cerebellar exam normal. Normal gait. Vital Signs: 22:27 BP 129 / 82; Pulse 83; Resp 18; Temp 98.2; Pulse Ox 100% on R/A; Weight 92.99 kg; tw5 Height 5 ft. 2 in. (157.48 cm); Pain 10/10; 01/20 00:46 BP 123 / 68; Pulse 75; Resp 18 S; Pulse Ox 97% on R/A; as6 01:25 BP 123 / 73; Pulse 81; Resp 19 S; Pulse Ox 97% on R/A; as6 01/19 22:27 Body Mass Index 37.49 (92.99 kg, 157.48 cm) tw5 Marshall Coma Score: 01:23 Eye Response: spontaneous(4). Verbal Response: oriented(5). Motor Response: obeys rn commands(6). Total: 15. MDM: 01/19 22:23 Patient medically screened. rn 01/20 01:23 Differential diagnosis: hypertensive headache, intracerebral hemorrhage, migraine, rn tension headache, vasomotor headache, pre-eclampsia, HTN. Data reviewed: vital signs, nurses notes, radiologic studies, CT scan. Independent interpretation of the following test(s) in the Emergency Department CT Scan: My interpretation is CT head images negative for hemorrhage on my interpretation. Counseling: I had a detailed discussion with the patient and/or guardian regarding: the historical points, exam findings, and any diagnostic results supporting the discharge/admit diagnosis, radiology results, the need for outpatient follow up, to return to the emergency department if symptoms worsen or persist or if there are any questions or concerns that arise at home. Response to treatment: the patient's symptoms have markedly improved after treatment, and as a result, I will discharge patient. Special discussion: I discussed with the patient/guardian in detail that at this point there is no indication for admission to the hospital. It is understood, however, that if the symptoms persist or worsen the patient needs to return immediately for re-evaluation. 01/19 23: Order name: CT Head Brain wo Cont rn 01/19 23: Order name: IV Start; Complete Time: 23:49 rn Administered Medications: 00:47 Drug: morphine 4 mg Route: IVP; Infused Over: 4 mins; Site: left antecubital; as6 01:34 Follow up: Response: No adverse reaction; Pain is decreased kd3 00:47 Drug: NS 0.9% 1000 ml Route: IV; Rate: 1000 ml; Site: left antecubital; as6 01:34 Follow up: IV Status: Completed infusion; IV Intake: 1000ml kd3 00:47 Drug: Decadron - Dexamethasone 10 mg Route: IVP; Site: left antecubital; as6 01:34 Follow up: Response: No adverse reaction; Pain is decreased kd3 Disposition Summary: 01/20/23 01:25 Discharge Ordered Location: Home rn Problem: new rn Symptoms: have improved rn Condition: Stable rn Diagnosis - Headache - Post-epidural(01/20/23 01:25) rn Followup: rn - With: Private Physician - When: As needed - Reason: Recheck today's complaints, Re-evaluation by your physician Discharge Instructions: - Discharge Summary Sheet rn - Spinal Headache rn - Epidural Blood Patch for Spinal Headache, Care After rn Forms: - Medication Reconciliation Form rn - Thank You Letter rn - 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
[2023-01-20 02:53] VITALS: TEMP 98.2
[2023-01-20 02:55] VITALS: O2SAT 97
[2023-01-20 02:56] VITALS: BP 123/73
--- NOTE | 2023-01-20 21:51 | RAD REPORT ---
EXAM DESCRIPTION: CT - Head Brain Wo Cont - 01/20/2023 6:51 am CLINICAL HISTORY: 27-year-old female with headache. COMPARISON: 02/05/2021. TECHNIQUE: CT brain without contrast. This exam was performed according to our departmental dose opt imization program which includes use of automated exposure control, adjustment of the mA and/or kV ac cording to patient size and/or use of iterative reconstruction technique. FINDINGS: The ventricles, sulci, and cisterns are within normal limits. The grimaldo-white matter diff erentiation is preserved. There is no mass effect, midline shift, intra- or extra-axial fluid colle ction/acute hemorrhage. The osseous structures are unremarkable. The paranasal sinuses and mastoi d air cells are clear. IMPRESSION: No acute intracranial abnormalities. Electronically signed by: Sydney López MD 01/20/2023 12:44 AM MANAGER [employer] Due to temporary technical issues with the PACS/Fluency reporting system, reports are being signed by the in house radiologists without review as a courtesy to insure prompt reporting. The interpreting radiologist is fully responsible for the content of the report.
== END 2023-01-20 01:35 | disposition home or self-care (01) ==
LOC: ER 22:08
DX: O89.4 Spinal and epidural anesthesia-induced headache during the puerperium (principal)
CPT/HCPCS: 96361; 70450; 96375; 96374; 99283; J1100; J7030

== ENCOUNTER 2023-01-20 07:30 | Emergency (ER) | payer OTHER ==
--- OUTSIDE RECORDS SUMMARY | 2023-01-20 07:42 | XMS REPORT | Continuity of Care Document ---
:1995 Author Organization [facility] t Address [address] [place] [address] Care Team Providers Name Role Phone ROGELIO SEN Primary Care Physician Unavailable LISA ASIF Attending Clinician Unavailable LISA ASIF Attending Clinician Unavailable Lisa Asif MD Attending Clinician Jose Carlos GUZMAN, Yessi Attending Clinician Chalino CARRANZA, Eric Ruggiero Attending Clinician Tommie Perez MD Attending Clinician Elyssa Harper MD Attending Clinician [phone] MG ERICKSON Attending Clinician Unavailable ROGELIO SEN Attending Clinician Unavailable Rogelio Jo Attending Clinician [phone] CHERIE QUIÑONEZ Attending Clinician Unavailable ISIDRO HOLDEN Attending Clinician Unavailable Risk, Dmh-Lvjca-Al/High Attending Clinician Unavailable Isidro Aly Attending Clinician Ultrasound, Ang-Mfm Attending Clinician Unavailable Dionicio Doll MD Attending Clinician DIONICIO DOLL Attending Clinician Unavailable Doctor Unassigned, [place] Attending Clinician Unavailable Mikey ESPINOZA, Sonia Attending Clinician Logan Bustamante DO Attending Clinician Provider, Michelle Temrubi Attending Clinician Unavailable Cherie Quiñonez CNM Attending Clinician Nathan Harper MD, Sonali Attending Clinician [phone] NATHAN HARPER, SONALI Attending Clinician Unavailable Vero Dowd APN Attending Clinician PRASAD AVILES Attending Clinician Unavailable Mary CLIENT SUPPORT MANAGER, Sydney Attending Clinician 3, [facility] Room Attending Clinician Unavailable SYDNEY HERNANDEZ Attending Clinician Unavailable Faculty, Joaquin Amado [facility] Attending Clinician Unavailable Nika Montero RN [...] Number Effective Date Expiration Date Bette rosas [facility] STAR [id number] 2022 00:00:00 MEDICAID PENDING PENDING 2022 00:00:00 Problems Condition Condition Condition Status Onset Resolution Last Treating Co mments Source Name Details Category Date Date Treatment Clinician Date 39 weeks 39 weeks Disease Active Unive rs gestation gestation 2-19 ity of of of 00:00: [place] 00 [facility] Encounter Encounter Disease Active Uni vers for [...] , and 00:00: [place] acellular acellular 00 [facility] pertussis pertussis Bran ch (Tdap) (Tdap) vaccinatio vaccinatio n declined n declined UTI in UTI in Disease Active Overview: Univer s 7-14 Formattin i ty of 00:00: g of this note Medical might be Branch different from the original. 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 Not on meds Obesity in Obesity in Disease Active U nivers 1-10 ity of 00:00: [place] 00 Medical Branch Herpes Herpes Disease Active Overview: Univer s infection infection 1-10 Formattin i ty of in in 00:00: g of this [place] 00 note Medi gonzalo might be Branch different from the original. No outbreak since 2018 Allergies, Adverse Reactions, Alerts Allergy Allergy Status Severity Reaction(s) Onset Inactive Treating Comm ents Source Name Type Date Date Clinician NO KNOWN Drug Active Univers ALLERGIE Class ity of S [facility] Social History Social Habit Start Date Stop Date Quantity Comments Source ASSERTION 2022-05-01 [facility] 00:00:00 [facility] History SDOH University o f Alcohol Frequency [place] M edical [place] History SDOH University o f Alcohol Std [place] Medical Drinks [place] History [facility] o f Alcohol Binge [place] Medic al [place] History of Passive smoker [facility] tobacco use [facility] Alcohol intake 2023-01-16 2023-01-16 Ex-drinker [facility] 00:00:00 00:00:00 (finding) [facility] Exposure to 2023-01-05 2023-01-15 Not sure [facility] SARS-CoV-2 00:00:00 07:31:00 [facility] (event) [place] Tobacco use and 2022-06-09 2022-06-09 Smokeless tobacco Un iversity of exposure 00:00:00 00:00:00 non-user [facility] Alcohol Comment 2022-05-25 2022-05-25 stopped for Universi ty of 00:00:00 00:00:00 [facility] Sex Assigned At [birth year] Universit y of 00:00:00 00:00:00 [facility] Smoking Status Start Date Stop Date Source Never smoked tobacco [facility] Medications Ordered Filled Start Stop Current Ordering Indication Dosage Frequency Signature Comments Components Source Medication Medication Date Date Medication? Clinician (SIG) Name Name Sliding Yes Subcutaneo Univ ers Scale 2-21 us, AC+HS, ity of Insulin-Reg 03:00: First dose [place] ular + Fsbg 00 on Mon Medica l Testing 01/16/23 at [place] 2100, Until Discontinu ed, Routine dextrose Yes 250mL 250 mL, IV Un becca 10% (D10W) 2-21 Infusion, ity of bolus 01:39: PRN - SEE [place] infusion 31 INSTRUCTIO Medic al 250 mL , [place] Administer over 60 Minutes, Other, If blood [...] to swallow or has mental changes. Yes [id number] 1{tbl} Take 1 Univers [id number] 2-21 tablet by ity of fum-folic 00:00: mouth in [facility] ([facility]) 00 the Medical 27 mg iron- morning. Bran ch 1 mg folic tablet docusate Yes [id number] 200mg Take 2 U nivers 100 mg 2-21 capsules ity of capsule 00:00: by mouth [place] 00 once daily Medical as needed Branch for Constipati on. ferrous Yes [id number] 325mg Take 1 Un becca sulfate 325 2-21 tablet by ity of mg (65 mg 00:00: mouth in [facility] iron) 00 the Medical tablet morning. Branch ibuprofen Yes [id number] 600mg Take 1 Univers 600 mg 2-21 tablet by ity of tablet 00:00: mouth [place] 00 every 6 Medical (six) Branch hours as needed (Pain). Take with food or milk. Yes [id number] 1{tbl} Take 1 Univers [id number] 2-21 tablet by ity of fum-folic 00:00: mouth in [facility] () 00 the Medical 27 mg iron- morning. Bran ch 1 mg folic tablet docusate Yes [id number] 200mg Take 2 U nivers 100 mg 2-21 capsules ity of capsule 00:00: by mouth [place] 00 once daily Medical as needed Branch for Constipati on. ferrous 0 Yes [id number] 325mg Take 1 Un becca sulfate 325 2-21 tablet by ity of mg (65 mg 00:00: mouth in [facility] iron) 00 the Medical tablet morning. Branch ibuprofen Yes [id number] 600mg Take 1 Univers 600 mg 2-21 tablet by ity of tablet 00:00: mouth [place] 00 every 6 Medical (six) Branch hours as needed (Pain). Take with food or milk. Yes [id number] 1{tbl} Take 1 Univers [id number] 2-21 tablet by ity of fum-folic 00:00: mouth in [facility] () 00 the Medical 27 mg iron- morning. Bran ch 1 mg folic tablet docusate Yes [id number] 200mg Take 2 U nivers 100 mg 2-21 capsules ity of capsule 00:00: by mouth [place] 00 once daily Medical as needed Branch for Constipati on. ferrous Yes [id number] 325mg Take 1 Un becca sulfate 325 2-21 tablet by ity of mg (65 mg 00:00: mouth in [facility] iron) 00 the Medical tablet morning. Branch ibuprofen Yes [id number] 600mg Take 1 Univers 600 mg 2-21 tablet by ity of tablet 00:00: mouth [place] 00 every 6 Medical (six) Branch hours as needed (Pain). Take with food or milk. butalbital- Yes 1{tbl} 1 tablet, Univers acetaminoph 2-20 Oral, ity of en-caff 14:45: Q4HPRN, [place] (ESGIC) 00 Starting Medical 50-325-40 on Mon [...] Slow IV ity of (BENADRYL) 10:54: Push, [place] injection 43 Q6HPRN, Medical 25 mg Starting [...] 2-20 Oral, ity of (TYLENOL) 10:52: Q6HPRN, [place] tablet 650 48 Starting Medic al mg on Mon01/16/23 at 0452, Until Discontinu ed, Routine, Pain (scale 1-3) diphenhydrA 2022-0 Yes 25mg 25 mg, [facility] ers MINE 2-20 Oral, ity of (BENADRYL) 10:52: Q6HPRN, [place] tablet 25 48 Starting Medica l mg on Mon01/16/23 at 0452, Until Discontinu ed, Routine, Sleep, Itching ondansetron 2022-0 Yes 4mg 4 mg, Slow Univers (ZOFRAN 2-20 IV Push, ity of (PF)) 10:52: Q8HPRN, [place] injection 4 48 Starting Medi gonzalo mg [...] [place] 20-0.5 % 48 on [facility] Medical topical 01/16/23 at Branch spray 0452, [...] 2-20 CONTINUOUS ity of (NAROPIN 01:28: PRN, [place] (PF)) 00 Starting Medical epidural on [place] Branch infusion 01/15/23 at 1928, Until Discontinu ed, Routine, Intra-op ropivacaine 0 Yes Epidural, U nivers 0.2 % 2-20 CONTINUOUS ity of (NAROPIN 01:28: PRN, [place] (PF)) 00 Starting Medical epidural on [place] Branch infusion 01/15/23 at 1928, Until Discontinu ed, Routine, Intra-op ropivacaine 2022-0 Yes Epidural, U nivers 0.2 % 2-20 CONTINUOUS ity of (NAROPIN 01:28: PRN, [place] ()) 00 Starting Medical epidural on Sun Branch infusion 01/15/23 at 1928, Until Discontinu ed, Routine, Intra-op ropivacaine Yes Epidural, U nivers 0.2 % 2-20 CONTINUOUS ity of (NAROPIN 01:28: PRN, [place] ()) 00 Starting Medical epidural on Sun Branch infusion 01/15/23 at 1928, Until Discontinu ed, Routine, Intra-op ropivacaine 2022- No Epidural, Univers 0.2 % 2-20 02-20 CONTINUOUS ity of (NAROPIN 01:28: 08:38 PRN, [place] ()) 00 :23 Starting Medical epidural on Sun Branch infusion 01/15/23 at 1928, Until Discontinu ed, Routine, Intra-op ropivacaine 2022-2022- No Epidural, Univers 0.2 % 2-20 02-20 CONTINUOUS ity of (NAROPIN 01:28: 08:38 PRN, [place] ()) 00 :23 Starting Medical epidural on [...] 15 (CNR) Minutes, ONCE, 1 dose, On [place] 01/15/23 at 1345, Routine nalbuphine 2022- No 10mg 10 mg, Univ ers (NUBAIN) 01-15 Intravenou ity of injection 19:45: 19:12 s, ONCE, 1 [place] 10 mg 00 :00 dose, On Medical [place] Branch 01/15/23 at 1345, Routine oxytocin 2022- [...] Until Mon01/16/23 at 0230, Routine ferrous Yes [id number] 325mg Take 1 Un becca sulfate 325 [...] 1 tablet in the evening. ferrous Yes [id number] 325mg Take 1 Un becca sulfate 325 1-31 tablet by ity of mg (65 mg 00:00: [place] iron[place] 00 the Medical tablet morning Branch and 1 tablet in the evening. ascorbic 2023-0 Yes [id number] 500mg Take 1 U nivers acid, 1-31 tablet by ity of vitamin C, 00:00: mouth in [place] 500 mg 00 the Medical tablet morning Branch and 1 tablet at noon and 1 tablet in the evening. ferrous 2022-0 Yes [id number] 325mg Take 1 Un becca sulfate 325 1-31 tablet by ity of mg (65 mg 00:00: [place] iron[place] 00 the Medical tablet morning Branch and 1 tablet in the evening. ascorbic 2022-0 Yes [id number] 500mg Take 1 U nivers acid, 1-31 tablet by ity of vitamin C, 00:00: mouth in [place] as 500 mg 00 the Medical tablet morning Branch and 1 tablet at noon and 1 tablet in the evening. ferrous 2022-0 Yes [id number] 325mg Take 1 Un becca sulfate 325 1-31 tablet by ity of mg (65 mg 00:00: [place] iron[place] 00 the Medical tablet morning Branch and 1 tablet in the evening. ascorbic 2022-0 Yes [id number] 500mg Take 1 U nivers acid, 1-31 tablet by ity of vitamin C, 00:00: mouth in [place] as 500 mg 00 the Medical tablet morning Branch and 1 tablet at noon and 1 tablet in the evening. ferrous 2022-0 Yes [id number] 325mg Take 1 Un becca sulfate 325 1-31 tablet by ity of mg (65 mg 00:00: [place] iron[place] 00 the Medical tablet morning Branch and 1 tablet in the evening. ascorbic 202-0 Yes [id number] 500mg Take 1 U nivers acid, 1-31 tablet by ity of vitamin C, 00:00: mouth in [place] as 500 mg 00 the Medical tablet morning Branch and 1 tablet at noon and 1 tablet in the evening. ferrous 2023-0 Yes [id number] 325mg Take 1 Un becca sulfate 325 1-31 tablet by ity of mg (65 mg 00:00: [place] iron[place] 00 the Medical tablet morning Branch and 1 tablet in the evening. ascorbic 2023-0 Yes [id number] 500mg Take 1 U nivers acid, 1-31 tablet by ity of vitamin C, 00:00: mouth in [place] as 500 mg 00 the Medical tablet morning Branch and 1 tablet at noon and 1 tablet in the evening. ferrous 2022-0 Yes [id number] 325mg Take 1 Un becca sulfate 325 1-31 tablet by ity of mg (65 mg 00:00: [place] iron[place] 00 the Medical tablet morning Branch and 1 tablet in the evening. ascorbic 2022-0 Yes [id number] 500mg Take 1 U nivers acid, 1-31 tablet by ity of vitamin C, 00:00: mouth in [place] as 500 mg 00 the Medical tablet morning Branch and 1 tablet at noon and 1 tablet in the evening. ferrous 2022-0 Yes [id number] 325mg Take 1 Un becca sulfate 325 1-31 tablet by ity of mg (65 mg 00:00: [place] iron[place] 00 the Medical tablet morning Branch and 1 tablet in the evening. ascorbic 2022-0 Yes [id number] 500mg Take 1 U nivers acid, 1-31 tablet by ity of vitamin C, 00:00: mouth in [place] as 500 mg 00 the Medical tablet morning Branch and 1 tablet at noon and 1 tablet in the evening. ferrous 2022-0 Yes [id number] 325mg Take 1 Un becca sulfate 325 1-31 tablet by ity of mg (65 mg 00:00: [place] iron[place] 00 the Medical tablet morning Branch and 1 tablet in the evening. ascorbic 2022-0 Yes [id number] 500mg Take 1 U nivers acid, 1-31 tablet by ity of vitamin C, 00:00: mouth in [place] as 500 mg 00 the Medical tablet morning Branch and 1 tablet at noon and 1 tablet in the evening. ferrous 2022-0 Yes [id number] 325mg Take 1 Un becca sulfate 325 1-31 tablet by ity of mg (65 mg 00:00: mouth [place] iron[place] 00 the Medical tablet morning Branch and 1 tablet in the evening. ascorbic 202-0 Yes [id number] 500mg Take 1 U nivers acid, 1-31 tablet by ity of vitamin C, 00:00: mouth in [place] as 500 mg 00 the Medical tablet morning Branch and 1 tablet at noon and 1 tablet in the evening. ferrous 2022-0 Yes [id number] 325mg Take 1 Un becca sulfate 325 1-31 tablet by ity of mg (65 mg 00:00: [place] iron[place] 00 the Medical tablet morning Branch and 1 tablet in the evening. ascorbic 0 Yes [id number] 500mg Take 1 U nivers acid, -31 tablet by ity of vitamin C, 00:00: mouth in [place] as 500 mg 00 the Medical tablet morning Branch and 1 tablet at noon and 1 tablet in the evening. ferrous 0 Yes [id number] 325mg Take 1 Un becca sulfate 325 1-31 tablet by ity of mg (65 mg 00:00: mouth [place] iron[place] 00 the Medical tablet morning Branch and 1 tablet in the evening. ascorbic Yes [id number] 500mg Take 1 U nivers acid, 1-31 tablet by ity of vitamin C, 00:00: mouth in [place] as 500 mg 00 the Medical tablet morning Branch and 1 tablet at noon and 1 tablet in the evening. ferrous 2022- No [id number] 325mg Take 1 U nivers sulfate 325 12-27 tablet by it y of mg (65 mg 00:00: 00:00 mouth in [place] as iron) 00 :00 the Medical tablet morning Branch and 1 tablet in the evening. ascorbic 2022-0 2022- No [id number] 500mg Take 1 Univers acid, 12-27 tablet by ity of vitamin C, 00:00: 00:00 mouth in [place] 500 mg 00 :00 the Medical tablet morning Branch and 1 tablet at noon and 1 tablet in the evening. ferrous 2022- No [id number] 325mg Take 1 U nivers sulfate 325 12-27 tablet by it y of mg (65 mg 00:00: 00:00 mouth in [place] as iron) 00 :00 the Medical tablet morning Branch and 1 tablet in the evening. ascorbic 2022-0 2022- No [id number] 500mg Take 1 Univers acid, 12-27 tablet by ity of vitamin C, 00:00: 00:00 mouth in [place] 500 mg 00 :00 the Medical tablet morning Branch and 1 tablet at noon and 1 tablet in the evening. acyclovir Yes [id number] 400mg Take 1 Univers 400 mg 1-30 tablet by ity of tablet 00:00: mouth in [address] Medical morning [place] and 1 tablet at noon and 1 tablet in the evening. acyclovir 2023-0 Yes [id number] 400mg Take 1 Univers 400 mg 1-30 tablet by ity of tablet 00:00: mouth in [place] [address] the [facility] morning [place] and 1 tablet at noon and 1 tablet in the evening. acyclovir 2023-0 Yes [id number] 400mg Take 1 Univers 400 mg 1-30 tablet by ity of tablet 00:00: mouth in [address] morning [place] and 1 tablet at noon and 1 tablet in the evening. acyclovir 2023-0 Yes [id number] 400mg Take 1 Univers 400 mg 1-30 tablet by ity of tablet 00:00: mouth in [address] morning [place] and 1 tablet at noon and 1 tablet in the evening. acyclovir 2023-0 Yes [id number] 400mg Take 1 Univers 400 mg 1-30 tablet by ity of tablet 00:00: mouth in [address] morning [place] and 1 tablet at noon and 1 tablet in the evening. acyclovir 2023-0 Yes [id number] 400mg Take 1 Univers 400 mg 1-30 tablet by ity of tablet 00:00: mouth in [address] morning [place] and 1 tablet at noon and 1 tablet in the evening. acyclovir 2023-0 Yes [id number] 400mg Take 1 Univers 400 mg 1-30 tablet by ity of tablet 00:00: mouth in [address] morning [place] and 1 tablet at noon and 1 tablet in the evening. acyclovir 2023-0 Yes [id number] 400mg Take 1 Univers 400 mg 1-30 tablet by ity of tablet 00:00: mouth in [address] morning [place] and 1 tablet at noon and 1 tablet in the evening. acyclovir 2023-0 Yes [id number] 400mg Take 1 Univers 400 mg 1-30 tablet by ity of tablet 00:00: mouth in [address] morning [place] and 1 tablet at noon and 1 tablet in the evening. acyclovir 2023-0 Yes [id number] 400mg Take 1 Univers 400 mg 1-30 tablet by ity of tablet 00:00: mouth in [address] morning [place] and 1 tablet at noon and 1 tablet in the evening. acyclovir 2023-0 Yes [id number] 400mg Take 1 Univers 400 mg 1-30 tablet by ity of tablet 00:00: mouth in [place] 00 [facility] and 1 tablet at noon and 1 tablet in the evening. acyclovir 2022-0 Yes [id number] 400mg Take 1 Univers 400 mg 1-30 tablet by ity of tablet 00:00: mouth in [place] 00 the [facility] and 1 tablet at noon and 1 tablet in the evening. acyclovir 2022-0 Yes [id number] 400mg Take 1 Univers 400 mg 1-30 tablet by ity of tablet 00:00: mouth in [place] 00 [facility] and 1 tablet at noon and 1 tablet in the evening. acyclovir 2022-0 Yes [id number] 400mg Take 1 Univers 400 mg 1-30 tablet by ity of tablet 00:00: mouth in [place] 00 [facility] and 1 tablet at noon and 1 tablet in the evening. acyclovir 2022-2022- No [id number] 400mg Take 1 Univers 400 mg 1-30 02-21 tablet by ity of tablet 00:00: 00:00 mouth in [place] 00 :00 [facility] and 1 tablet at noon and 1 tablet in the evening. acyclovir 2022-0 3- No [id number] 400mg Take 1 Univers 400 mg 1-30 02-21 tablet by ity of tablet 00:00: 00:00 mouth in [place] 00 :00 [facility] and 1 tablet at noon and 1 tablet in the evening. acyclovir 2021-11- Yes [id number] 800mg Take 1 Univers 800 mg 2-12 12-18 tablet by ity of tablet 00:00: 05:59 mouth in [place] 00 :00 [facility] and 1 tablet in the evening. Do all this for 5 days. acyclovir 2021-11- No [id number] 800mg Take 1 Univers 800 mg 2-12 12-18 tablet by ity of tablet 00:00: 05:59 mouth in [place] 00 :00 [facility] and 1 tablet in the evening. Do all this for 5 days. aspirin 81 2021-0 Yes [id number] 81mg Take 1 U nivers mg EC 7-18 tablet by ity of tablet 00:00: mouth in [place] 00 [facility]. Branch Start at 12 weeks gestation aspirin 81 2022-0 Yes [id number] 81mg Take 1 U nivers mg EC 7-18 tablet by ity of tablet 00:00: mouth in [place] 00 the Medical morning. Branch Start at 12 weeks gestation aspirin 81 2022-0 Yes [id number] 81mg Take 1 U nivers mg EC 7-18 tablet by ity of tablet 00:00: mouth in [place] 00 the Medical morning. Branch Start at 12 weeks gestation aspirin 81 2022-0 Yes [id number] 81mg Take 1 U nivers mg EC 7-18 tablet by ity of tablet 00:00: mouth in [place] 00 the Medical morning. Branch Start at 12 weeks gestation aspirin 81 2022-0 Yes [id number] 81mg Take 1 U nivers mg EC 7-18 tablet by ity of tablet 00:00: mouth in [place] 00 the Medical morning. Branch Start at 12 weeks gestation aspirin 81 2022-0 Yes [id number] 81mg Take 1 U nivers mg EC 7-18 tablet by ity of tablet 00:00: mouth in [place] 00 the Medical morning. Branch Start at 12 weeks gestation aspirin 81 2022-0 Yes [id number] 81mg Take 1 U nivers mg EC 7-18 tablet by ity of tablet 00:00: mouth in [place] 00 the Medical morning. Branch Start at 12 weeks gestation aspirin 81 2022-0 Yes [id number] 81mg Take 1 U nivers mg EC 7-18 tablet by ity of tablet 00:00: mouth in [place] 00 the Medical morning. Branch Start at 12 weeks gestation aspirin 81 2022-0 Yes [id number] 81mg Take 1 U nivers mg EC 7-18 tablet by ity of tablet 00:00: mouth in [place] 00 the Medical morning. Branch Start at 12 weeks gestation aspirin 81 2022-0 Yes [id number] 81mg Take 1 U nivers mg EC 7-18 tablet by ity of tablet 00:00: mouth in [place] 00 the Medical morning. Branch Start at 12 weeks gestation aspirin 81 2022-0 Yes [id number] 81mg Take 1 U nivers mg EC 7-18 tablet by ity of tablet 00:00: mouth in [place] 00 the Medical morning. Branch Start at 12 weeks gestation aspirin 81 2022-0 Yes [id number] 81mg Take 1 U nivers mg EC 7-18 tablet by ity of tablet 00:00: mouth in [place] 00 the Medical morning. Branch Start at 12 weeks gestation aspirin 81 2022-0 Yes [id number] 81mg Take 1 U nivers mg EC 7-18 tablet by ity of tablet 00:00: mouth in [place] 00 the Medical morning. Branch Start at 12 weeks gestation aspirin 81 2022-0 Yes [id number] 81mg Take 1 U nivers mg EC 7-18 tablet by ity of tablet 00:00: mouth in [place] 00 the Medical morning. Branch Start at 12 weeks gestation aspirin 81 2022-0 Yes [id number] 81mg Take 1 U nivers mg EC 7-18 tablet by ity of tablet 00:00: mouth in [place] 00 the Medical morning. Branch Start at 12 weeks gestation aspirin 81 2022-0 Yes [id number] 81mg Take 1 U nivers mg EC 7-18 tablet by ity of tablet 00:00: mouth in [place] 00 the Medical morning. Branch Start at 12 weeks gestation aspirin 81 2022-0 Yes [id number] 81mg Take 1 U nivers mg EC 7-18 tablet by ity of tablet 00:00: mouth in [place] 00 the Medical morning. Branch Start at 12 weeks gestation aspirin 81 2022-0 Yes [id number] 81mg Take 1 U nivers mg EC 7-18 tablet by ity of tablet 00:00: mouth in [place] 00 the Medical morning. Branch Start at 12 weeks gestation aspirin 81 2022-0 Yes [id number] 81mg Take 1 U nivers mg EC 7-18 tablet by ity of tablet 00:00: mouth in [place] 00 the Medical morning. Branch Start at 12 weeks gestation aspirin 81 2022-0 Yes [id number] 81mg Take 1 U nivers mg EC 7-18 tablet by ity of tablet 00:00: mouth in [place] 00 the Medical morning. Branch Start at 12 weeks gestation aspirin 81 2022-0 Yes [id number] 81mg Take 1 U nivers mg EC 7-18 tablet by ity of tablet 00:00: mouth in [place] 00 the Medical morning. Branch Start at 12 weeks gestation aspirin 81 2022-0 Yes [id number] 81mg Take 1 U nivers mg EC 7-18 tablet by ity of tablet 00:00: mouth in [place] 00 the Medical morning. Branch Start at 12 weeks gestation aspirin 81 2022-0 Yes [id number] 81mg Take 1 U nivers mg EC 7-18 tablet by ity of tablet 00:00: mouth in [place] 00 the Medical morning. Branch Start at 12 weeks gestation aspirin 81 2022-0 Yes [id number] 81mg Take 1 U nivers mg EC 7-18 tablet by ity of tablet 00:00: mouth in [place] 00 the Medical morning. Branch Start at 12 weeks gestation aspirin 81 2022-0 Yes [id number] 81mg Take 1 U nivers mg EC 7-18 tablet by ity of tablet 00:00: mouth in [place] 00 the Medical morning. Branch Start at 12 weeks gestation aspirin 81 2022-0 Yes [id number] 81mg Take 1 U nivers mg EC 7-18 tablet by ity of tablet 00:00: mouth in [place] 00 the Medical morning. Branch Start at 12 weeks gestation aspirin 81 2022-0 Yes [id number] 81mg Take 1 [facility] mg EC 7-18 tablet by ity of tablet 00:00: mouth in [place] 00 the Medical morning. Branch Start at 12 weeks gestation aspirin 81 2022-0 Yes [id number] 81mg Take 1 [facility] mg EC 7-18 tablet by ity of tablet 00:00: mouth in [place] 00 the Medical morning. Branch Start at 12 weeks gestation aspirin 81 2022-0 Yes [id number] 81mg Take 1 [facility] mg EC 7-18 tablet by ity of tablet 00:00: mouth in [place] 00 the Medical morning. Branch Start at 12 weeks gestation aspirin 81 2022-0 2023- No [id number] 81mg Take 1 [facility] mg EC 7-18 02-21 tablet by ity of tablet 00:00: 00:00 mouth in [place] 00 :00 the Medical morning. Branch Start at 12 weeks gestation aspirin 81 2022-0 2023- No [id number] 81mg Take 1 [facility] mg EC 7-18 02-21 tablet by ity of tablet 00:00: 00:00 mouth in [place] 00 :00 the Medical morning. Branch Start at 12 weeks gestation proMETHazin 2022-0 Yes [id number] 25mg Take 1 [facility] e 25 mg 7-14 tablet by ity of tablet 00:00: mouth [place] 00 every 6 Medical (six) Branch hours as needed for Nausea and Vomiting (N/V). proMETHazin 2022-0 Yes [id number] 25mg Take 1 [facility] e 25 mg 7-14 tablet by ity of tablet 00:00: mouth [place] 00 every 6 Medical (six) Branch hours as needed for Nausea and Vomiting (N/V). proMETHazin 2022-0 Yes [id number] 25mg Take 1 [facility] e 25 mg 7-14 tablet by ity of tablet 00:00: mouth [place] 00 every 6 Medical (six) Branch hours as needed for Nausea and Vomiting (N/V). proMETHazin 2022-0 Yes [id number] 25mg Take 1 [facility] e 25 mg 7-14 tablet by ity of tablet 00:00: mouth [place] 00 every 6 Medical (six) Branch hours as needed for Nausea and Vomiting (N/V). proMETHazin 2-0 Yes [id number] 25mg Take 1 [facility] e 25 mg 7-14 tablet by ity of tablet 00:00: mouth [place] 00 every 6 Medical (six) Branch hours as needed for Nausea and Vomiting (N/V). proMETHazin 2-0 Yes [id number] 25mg Take 1 [facility] e 25 mg 7-14 tablet by ity of tablet 00:00: mouth [place] 00 every 6 Medical (six) Branch hours as needed for Nausea and Vomiting (N/V). proMETHazin 2-0 Yes [id number] 25mg Take 1 [facility] e 25 mg 7-14 tablet by ity of tablet 00:00: mouth [place] 00 every 6 Medical (six) Branch hours as needed for Nausea and Vomiting (N/V). proMETHazin 2-0 Yes [id number] 25mg Take 1 [facility] e 25 mg 7-14 tablet by ity of tablet 00:00: mouth [place] 00 every 6 Medical (six) Branch hours as needed for Nausea and Vomiting (N/V). proMETHazin 2022-0 Yes [id number] 25mg Take 1 [facility] e 25 mg 7-14 tablet by ity of tablet 00:00: mouth [place] 00 every 6 Medical (six) Branch hours as needed for Nausea and Vomiting (N/V). proMETHazin 2022-0 Yes [id number] 25mg Take 1 [facility] e 25 mg 7-14 tablet by ity of tablet 00:00: mouth [place] 00 every 6 Medical (six) Branch hours as needed for Nausea and Vomiting (N/V). proMETHazin 2022-0 Yes [id number] 25mg Take 1 [facility] e 25 mg 7-14 tablet by ity of tablet 00:00: mouth [place] 00 every 6 Medical (six) Branch hours as needed for Nausea and Vomiting (N/V). proMETHazin 2-0 Yes [id number] 25mg Take 1 [facility] e 25 mg 7-14 tablet by ity of tablet 00:00: mouth [place] 00 every 6 Medical (six) Branch hours as needed for Nausea and Vomiting (N/V). proMETHazin 2-0 Yes [id number] 25mg Take 1 [facility] 25 mg 7-14 tablet by ity of tablet 00:00: mouth [place] 00 every 6 Medical (six) Branch hours as needed for Nausea and Vomiting (N/V). proMETHazin 2-0 Yes [id number] 25mg Take 1 [facility] 25 mg 7-14 tablet by ity of tablet 00:00: mouth [place] 00 every 6 Medical (six) Branch hours as needed for Nausea and Vomiting (N/V). proMETHazin 2021-0 Yes [id number] 25mg Take 1 [facility] e 25 mg 7-14 tablet by ity of tablet 00:00: mouth [place] 00 every 6 Medical (six) Branch hours as needed for Nausea and Vomiting (N/V). proMETHazin 2021-0 Yes [id number] 25mg Take 1 [facility] e 25 mg 7-14 tablet by ity of tablet 00:00: mouth [place] 00 every 6 Medical (six) Branch hours as needed for Nausea and Vomiting (N/V). proMETHazin 2-0 Yes [id number] 25mg Take 1 [facility] e 25 mg 7-14 tablet by ity of tablet 00:00: mouth [place] 00 every 6 Medical (six) Branch hours as needed for Nausea and Vomiting (N/V). proMETHazin 2-0 Yes [id number] 25mg Take 1 [facility] e 25 mg 7-14 tablet by ity of tablet 00:00: mouth [place] 00 every 6 Medical (six) Branch hours as needed for Nausea and Vomiting (N/V). proMETHazin 2-0 Yes [id number] 25mg Take 1 [facility] e 25 mg 7-14 tablet by ity of tablet 00:00: mouth [place] 00 every 6 Medical (six) Branch hours as needed for Nausea and Vomiting (N/V). proMETHazin 2022-0 Yes [id number] 25mg Take 1 [facility] e 25 mg 7-14 tablet by ity of tablet 00:00: mouth [place] 00 every 6 Medical (six) Branch hours as needed for Nausea and Vomiting (N/V). proMETHazin 2022-0 Yes [id number] 25mg Take 1 [facility] e 25 mg 7-14 tablet by ity of tablet 00:00: mouth [place] 00 every 6 Medical (six) Branch hours as needed for Nausea and Vomiting (N/V). proMETHazin 2021-0 Yes [id number] 25mg Take 1 [facility] e 25 mg 7-14 tablet by ity of tablet 00:00: mouth [place] 00 every 6 Medical (six) Branch hours as needed for Nausea and Vomiting (N/V). proMETHazin 2021-0 Yes [id number] 25mg Take 1 [facility] e 25 mg 7-14 tablet by ity of tablet 00:00: mouth [place] 00 every 6 Medical (six) Branch hours as needed for Nausea and Vomiting (N/V). proMETHazin 2021-0 Yes [id number] 25mg Take 1 [facility] e 25 mg 7-14 tablet by ity of tablet 00:00: mouth [place] 00 every 6 Medical (six) Branch hours as needed for Nausea and Vomiting (N/V). proMETHazin 2021-0 Yes [id number] 25mg Take 1 [facility] e 25 mg 7-14 tablet by ity of tablet 00:00: mouth [place] 00 every 6 Medical (six) Branch hours as needed for Nausea and Vomiting (N/V). proMETHazin 2021-0 Yes [id number] 25mg Take 1 [facility] e 25 mg 7-14 tablet by ity of tablet 00:00: mouth [place] 00 every 6 Medical (six) Branch hours as needed for Nausea and Vomiting (N/V). proMETHazin 2021-0 Yes [id number] 25mg Take 1 [facility] e 25 mg 7-14 tablet by ity of tablet 00:00: mouth [place] 00 every 6 Medical (six) Branch hours as needed for Nausea and Vomiting (N/V). proMETHazin 2021-0 Yes [id number] 25mg Take 1 [facility] e 25 mg 7-14 tablet by ity of tablet 00:00: mouth [place] 00 every 6 Medical (six) Branch hours as needed for Nausea and Vomiting (N/V). proMETHazin 2021-0 Yes [id number] 25mg Take 1 [facility] e 25 mg 7-14 tablet by ity of tablet 00:00: mouth [place] 00 every 6 Medical (six) Branch hours as needed for Nausea and Vomiting (N/V). proMETHazin 2022-0 2023- No [id number] 25mg Take 1 [facility] e 25 mg 7-14 - tablet by ity of tablet 00:00: 00:00 mouth [place] 00 :00 every 6 Medical (six) Branch hours as needed for Nausea and Vomiting (N/V). proMETHazin 2022- No [id number] 25mg Take 1 [facility] e 25 mg 7-14 - tablet by ity of tablet 00:00: 00:00 mouth [place] 00 :00 every 6 Medical (six) Branch hours as needed for Nausea and Vomiting (N/V). Nitrofurant Yes [id number] 100mg Take 1 [facility] oin&Nit. 7-05 capsule by ity o f [place] 00:[place] ([place] (two) Medical 100 mg times Branch capsule daily. Nitrofurant Yes [id number] 100mg Take 1 [facility] oin&Nit. 7-05 capsule by ity o f [place] 00:[place]: [place] ([place]CR[place] 00 (two) Medical 100 mg times Branch capsule daily. Nitrofurant Yes [id number] 100mg Take 1 [facility] oin&Nit. 7-05 capsule by ity o f [place] 00:00: [place] ([place]CR[place] 00 (two) Medical 100 mg times Branch capsule daily. Nitrofurant Yes [id number] 100mg Take 1 [facility] oin&Nit. 7-05 capsule by ity o f [place] 00:[place]: [place] ([place]CR[place] 00 (two) Medical 100 mg times Branch capsule daily. Nitrofurant Yes [id number] 100mg Take 1 [facility] oin&Nit. 7-05 capsule by ity o f [place] 00:[place]: [place] ([place]CR[place] 00 (two) Medical 100 mg times Branch capsule daily. Nitrofurant Yes [id number] 100mg Take 1 [facility] oin&Nit. 7-05 capsule by ity o f [place] 00:[place]: [place] ([place]CR[place] 00 (two) Medical 100 mg times Branch capsule daily. Nitrofurant Yes [id number] 100mg Take 1 [facility] oin&Nit. 7-05 capsule by ity o f [place] 00:00: [place] ([place]CR[place] 00 (two) Medical 100 mg times Branch capsule daily. Nitrofurant 2021- No [id number] 100mg Take 1 [facility] oin&Nit. 7-05 12-12 capsule by ity of Macrocryst 00:00: 00:00 mouth 2 [place] as (MACROBID) 00 :00 (two) Medical 100 mg times Branch capsule daily. Immunizations Ordered Immunization Filled Immunization Date Status Commen ts Source Name Name HPV9 2019-09-17 Completed [facility] of 00:00:00 [facility] Branch HPV9 2019-09-17 Completed University of 00:00:00 [facility] Branch HPV9 2019-09-17 Completed University of 00:00:00 [facility] Branch HPV9 2019-09-17 Completed University of 00:00:00 [facility] Branch HPV9 2019-09-17 Completed University of 00:00:00 [facility] Branch HPV9 2019-09-17 Completed University of 00:00:00 [facility] Branch HPV9 2019-09-17 Completed University of 00:00:00 [facility] Branch HPV9 2019-09-17 Completed University of 00:00:00 [facility] Branch HPV9 2019-09-17 Completed University of 00:00:00 [facility] Branch HPV9 2019-09-17 Completed University of 00:00:00 [facility] Branch HPV9 2019-09-17 Completed University of 00:00:00 [facility] Branch HPV9 2019-09-17 Completed University of 00:00:00 [facility] Branch HPV9 2019-09-17 Completed University of 00:00:00 [facility] Branch HPV9 2019-09-17 Completed University of 00:00:00 [facility] Branch HPV9 2019-09-17 Completed University of 00:00:00 [facility] Branch HPV9 2019-09-17 Completed University of 00:00:00 [facility] Branch HPV9 2019-09-17 Completed University of 00:00:00 [facility] Branch HPV9 2019-09-17 Completed University of 00:00:00 [facility] Branch HPV9 2019-09-17 Completed University of 00:00:00 [facility] Branch HPV9 2019-09-17 Completed University of 00:00:00 [facility] Branch HPV9 2019-09-17 Completed University of 00:00:00 [place] [facility] HPV9 2019-09-17 Completed [facility] of 00:00:00 [place] [facility] HPV9 2019-09-17 Completed [facility] of 00:00:00 [place] [facility] HPV9 2019-09-17 Completed [facility] of 00:00:00 [place] [facility] HPV9 2019-09-17 Completed [facility] of 00:00:00 [place] [facility] HPV9 2019-09-17 Completed [facility] 00:00:00 [place] [facility] HPV9 2019-09-17 Completed [facility] 00:00:00 [place] [facility] HPV9 2019-09-17 Completed [facility] 00:00:00 [place] [facility] HPV9 2019-09-17 Completed [facility] 00:00:00 [place] [facility] HPV9 2019-09-17 Completed [facility] of 00:00:00 [place] [facility] HPV9 2019-09-17 Completed [facility] of 00:00:00 [place] [facility] HPV9 2019-09-17 Completed University of 00:00:00 [facility] TDAP 2019-05-20 Completed University of 00:00:00 [place] [facility] TDAP 2019-05-20 Completed [facility] of 00:00:00 [place] [facility] TDAP 2019-05-20 Completed [facility] of 00:00:00 [place] [facility] TDAP 2019-05-20 Completed [facility] of 00:00:00 [place] [facility] TDAP 2019-05-20 Completed [facility] 00:00:00 [place] [facility] TDAP 2019-05-20 Completed [facility] of 00:00:00 [place] [facility] TDAP 2019-05-20 Completed [facility] 00:00:00 [place] [facility] TDAP 2019-05-20 Completed [facility] of 00:00:00 [place] [facility] TDAP 2019-05-20 Completed [facility] of 00:00:00 [place] [facility] TDAP 2019-05-20 Completed [facility] of 00:00:00 [place] [facility] TDAP 2019-05-20 Completed [facility] of 00:00:00 [place] [facility] TDAP 2019-05-20 Completed [facility] of 00:00:00 [place] [facility] TDAP 2019-05-20 Completed [facility] of 00:00:00 [place] [facility] TDAP 2019-05-20 Completed [facility] of 00:00:00 [place] [facility] TDAP 2019-05-20 Completed [facility] of 00:00:00 [place] [facility] TDAP 2019-05-20 Completed [facility] 00:00:00 [place] [facility] TDAP 2019-05-20 Completed [facility] of 00:00:00 [place] [facility] TDAP 2019-05-20 Completed [facility] of 00:00:00 [place] [facility] TDAP 2019-05-20 Completed [facility] of 00:00:00 [place] [facility] TDAP 2019-05-20 Completed [facility] of 00:00:00 [place] [facility] TDAP 2019-05-20 Completed [facility] of 00:00:00 [place] [facility] TDAP 2019-05-20 Completed [facility] of 00:00:00 [place] [facility] TDAP 2019-05-20 Completed [facility] of 00:00:00 [place] [facility] TDAP 2019-05-20 Completed [facility] of 00:00:00 [place] [facility] TDAP 2019-05-20 Completed [facility] of 00:00:00 [place] [facility] TDAP 2019-05-20 Completed [facility] of 00:00:00 [place] [facility] TDAP 2019-05-20 Completed University of 00:00:00 [place] [facility] TDAP 2019-05-20 Completed [facility] of 00:00:00 [place] [facility] TDAP 2019-05-20 Completed University of 00:00:00 [place] [facility] TDAP 2019-05-20 Completed University of 00:00:00 [place] [facility] TDAP 2019-05-20 Completed University of 00:00:00 [place] [facility] TDAP 2019-05-20 Completed University of 00:00:00 [facility] Branch HPV9 2018-07-04 Completed University of 00:00:00 [place] [facility] HPV9 2018-07-04 Completed University of 00:00:00 [place] [facility] HPV9 2018-07-04 Completed [facility] of 00:00:00 [place] [facility] HPV9 2018-07-04 Completed [facility] of 00:00:00 [place] [facility] HPV9 2018-07-04 Completed [facility] of 00:00:00 [place] [facility] HPV9 2018-07-04 Completed University of 00:00:00 [place] [facility] HPV9 2018-07-04 Completed University of 00:00:00 [place] [facility] HPV9 2018-07-04 Completed University of 00:00:00 [place] [facility] HPV9 2018-07-04 Completed University of 00:00:00 [place] [facility] HPV9 2018-07-04 Completed University of 00:00:00 [place] [facility] HPV9 2018-07-04 Completed University of 00:00:00 [place] [facility] HPV9 2018-07-04 Completed [facility] of 00:00:00 [place] [facility] HPV9 2018-07-04 Completed [facility] of 00:00:00 [place] [facility] HPV9 2018-07-04 Completed [facility] of 00:00:00 [place] [facility] HPV9 2018-07-04 Completed [facility] of 00:00:00 [place] [facility] HPV9 2018-07-04 Completed University of 00:00:00 [place] [facility] HPV9 2018-07-04 Completed University of 00:00:00 [place] [facility] HPV9 2018-07-04 Completed [facility] of 00:00:00 [place] [facility] HPV9 2018-07-04 Completed [facility] of 00:00:00 [place] [facility] HPV9 2018-07-04 Completed University of 00:00:00 [place] [facility] HPV9 2018-07-04 Completed [facility] of 00:00:00 [place] [facility] HPV9 2018-07-04 Completed [facility] of 00:00:00 [place] [facility] HPV9 2018-07-04 Completed [facility] of 00:00:00 [place] [facility] HPV9 2018-07-04 Completed [facility] of 00:00:00 [place] [facility] HPV9 2018-07-04 Completed [facility] of 00:00:00 [place] [facility] HPV9 2018-07-04 Completed [facility] of 00:00:00 [place] [facility] HPV9 2018-07-04 Completed [facility] of 00:00:00 [place] [facility] HPV9 2018-07-04 Completed [facility] of 00:00:00 [place] [facility] HPV9 2018-07-04 Completed [facility] of 00:00:00 [place] [facility] HPV9 2018-07-04 Completed [facility] of 00:00:00 [place] [facility] HPV9 2018-07-04 Completed [facility] of 00:00:00 [place] [facility] HPV9 2018-07-04 Completed University of [...] Branch HPV9 2018-04-05 Completed University of 00:00:00 [place] [facility] HPV9 2018-04-05 Completed [facility] of 00:00:00 [place] [facility] HPV9 2018-04-05 Completed University of 00:00:00 [place] [facility] HPV9 2018-04-05 Completed University of 00:00:00 [place] [facility] HPV9 2018-04-05 Completed University of 00:00:00 [place] [facility] HPV9 2018-04-05 Completed [facility] of 00:00:00 [place] [facility] HPV9 2018-04-05 Completed [facility] of 00:00:00 [place] [facility] HPV9 2018-04-05 Completed [facility] of 00:00:00 [place] [facility] HPV9 2018-04-05 Completed University of 00:00:00 [place] [facility] HPV9 2018-04-05 Completed [facility] of 00:00:00 [place] [facility] HPV9 2018-04-05 Completed [facility] of 00:00:00 [place] [facility] HPV9 2018-04-05 Completed [facility] of 00:00:00 [place] [facility] HPV9 2018-04-05 Completed [facility] of 00:00:00 [place] [facility] HPV9 2018-04-05 Completed [facility] of 00:00:00 [place] [facility] HPV9 2018-04-05 Completed University of 00:00:00 [place] [facility] HPV9 2018-04-05 Completed [facility] of 00:00:00 [place] [facility] HPV9 2018-04-05 Completed [facility] of 00:00:00 [place] [facility] HPV9 2018-04-05 Completed [facility] of 00:00:00 [place] [facility] HPV9 2018-04-05 Completed [facility] of 00:00:00 [place] [facility] HPV9 2018-04-05 Completed [facility] of 00:00:00 [place] [facility] HPV9 2018-04-05 Completed University of 00:00:00 [facility] TDAP 2016-11-23 Completed University of 00:00:00 [facility] Branch TDAP 2016-11-23 Completed University of 00:00:00 [facility] Branch TDAP 2016-11-23 Completed University of 00:00:00 [facility] Branch TDAP 2016-11-23 Completed University of 00:00:00 [place] [facility] TDAP 2016-11-23 Completed University of 00:00:00 [place] [facility] TDAP 2016-11-23 Completed University of 00:00:00 [place] [facility] TDAP 2016-11-23 Completed [facility] of 00:00:00 [place] [facility] TDAP 2016-11-23 Completed University of 00:00:00 [place] [facility] TDAP 2016-11-23 Completed University of 00:00:00 [place] [facility] TDAP 2016-11-23 Completed University of 00:00:00 [place] [facility] TDAP 2016-11-23 Completed University of 00:00:00 [place] [facility] TDAP 2016-11-23 Completed University of 00:00:00 [place] [facility] TDAP 2016-11-23 Completed University of 00:00:00 [place] [facility] TDAP 2016-11-23 Completed University of 00:00:00 [place] [facility] TDAP 2016-11-23 Completed University of 00:00:00 [place] [facility] TDAP 2016-11-23 Completed [facility] of 00:00:00 [place] [facility] TDAP 2016-11-23 Completed [facility] of 00:00:00 [place] [facility] TDAP 2016-11-23 Completed [facility] of 00:00:00 [place] [facility] TDAP 2016-11-23 Completed [facility] of 00:00:00 [place] [facility] TDAP 2016-11-23 Completed [facility] of 00:00:00 [place] [facility] TDAP 2016-11-23 Completed [facility] of 00:00:00 [place] [facility] TDAP 2016-11-23 Completed University of 00:00:00 [place] [facility] TDAP 2016-11-23 Completed University of 00:00:00 [place] [facility] TDAP 2016-11-23 Completed University of 00:00:00 [place] [facility] TDAP 2016-11-23 Completed [facility] of 00:00:00 [place] [facility] TDAP 2016-11-23 Completed University of 00:00:00 [place] [facility] TDAP 2016-11-23 Completed University of 00:00:00 [place] [facility] TDAP 2016-11-23 Completed University of 00:00:00 [place] [facility] TDAP 2016-11-23 Completed University of 00:00:00 [place] [facility] TDAP 2016-11-23 Completed [facility] of 00:00:00 [place] [facility] TDAP 2016-11-23 Completed [facility] of 00:00:00 [place] [facility] TDAP 2016-11-23 Completed University of 00:00:00 [facility] Meningococcal 2010-07-16 Completed University of Polysaccharide 00:00:00 [place] [facility]alo (groups A, C, Y and Branc h W-135) conjugate vaccine (MCV4P) TDAP 2010-07-16 Completed University of 00:00:00 [facility] Varicella 2010-07-16 Completed University of (varivax)(chicken 00:00:00 [place] [facility] pox) Branch Meningococcal 2010-07-16 Completed University of Polysaccharide 00:00:00 [place] [facility] g[facility]alo (groups A, C, Y and Branc h W-135) conjugate vaccine (MCV4P) TDAP 2010-07-16 Completed University of 00:00:00 [facility] Varicella 2010-07-16 Completed University of (varivax)(chicken 00:00:00 [place] [facility] pox) Branch Meningococcal 2010-07-16 Completed University of Polysaccharide 00:00:00 [place] [facility]i gonzalo (groups A, C, Y and Branc h W-135) conjugate vaccine (MCV4P) TDAP 2010-07-16 Completed University of 00:00:00 [facility] Varicella 2010-07-16 Completed University of (varivax)(chicken 00:00:00 [place] [facility] pox) Branch Meningococcal 2010-07-16 Completed University of Polysaccharide 00:00:00 [place] [facility] g[facility]alo (groups A, C, Y and Branc h W-135) conjugate vaccine (MCV4P) TDAP 2010-07-16 Completed University of 00:00:00 [facility] Varicella 2010-07-16 Completed University of (varivax)(chicken 00:00:00 [place] [facility] pox) Branch Meningococcal 2010-07-16 Completed University of Polysaccharide 00:00:00 [place] [facility] g[facility]alo (groups A, C, Y and Branc h W-135) conjugate vaccine (MCV4P) TDAP 2010-07-16 Completed University of 00:00:00 [facility] Varicella 2010-07-16 Completed University of (varivax)(chicken 00:00:00 [place] [facility] ed[facility] pox) Branch Meningococcal 2010-07-16 Completed University of Polysaccharide 00:00:00 [place] [facility] g[facility]alo (groups A, C, Y and Branc h W-135) conjugate vaccine (MCV4P) TDAP 2010-07-16 Completed University of 00:00:00 [facility] Varicella 2010-07-16 Completed University of (varivax)(chicken 00:00:00 [place] [facility] ed[facility] pox) Branch Meningococcal 2010-07-16 Completed University of Polysaccharide 00:00:00 [place] [facility] g[facility] (groups A, C, Y and Branc h W-135) conjugate vaccine (MCV4P) TDAP 2010-07-16 Completed University of 00:00:00 [facility] Varicella 2010-07-16 Completed University of (varivax)(chicken 00:00:00 [place] [facility] ed[facility] pox) Branch Meningococcal 2010-07-16 Completed University of Polysaccharide 00:00:00 [place] [facility] g[facility]alo (groups A, C, Y and Branc h W-135) conjugate vaccine (MCV4P) TDAP 2010-07-16 Completed University of 00:00:00 [facility] Varicella 2010-07-16 Completed University of (varivax)(chicken 00:00:00 [place] [facility] ed[facility] pox) Branch Meningococcal 2010-07-16 Completed University of Polysaccharide 00:00:00 [place] [facility] (groups A, C, Y and Branc h W-135) conjugate vaccine (MCV4P) TDAP 2010-07-16 Completed University of 00:00:00 [facility] Varicella 2010-07-16 Completed University of (varivax)(chicken 00:00:00 [place] [facility] edical pox) Branch Meningococcal 2010-07-16 Completed University of Polysaccharide 00:00:00 [place] [facility] (groups A, C, Y and Branc h W-135) conjugate vaccine (MCV4P) TDAP 2010-07-16 Completed University of 00:00:00 [facility] Varicella 2010-07-16 Completed University of (varivax)(chicken 00:00:00 [place] [facility] ed[facility] pox) Branch Meningococcal 2010-07-16 Completed University of Polysaccharide 00:00:00 [place] [facility] (groups A, C, Y and Branc h W-135) conjugate vaccine (MCV4P) TDAP 2010-07-16 Completed University of 00:00:00 [facility] Varicella 2010-07-16 Completed University of (varivax)(chicken 00:00:00 [place] M ed[facility] pox) Branch Meningococcal 2010-07-16 Completed University of Polysaccharide 00:00:00 [place] [facility] (groups A, C, Y and Branc h W-135) conjugate vaccine (MCV4P) TDAP 2010-07-16 Completed University of 00:00:00 [facility] Varicella 2010-07-16 Completed University of (varivax)(chicken 00:00:00 [place] [facility] ed[facility] pox) Branch Meningococcal 2010-07-16 Completed University of Polysaccharide 00:00:00 [place] [facility] gonzalo (groups A, C, Y and Branc h W-135) conjugate vaccine (MCV4P) TDAP 2010-07-16 Completed [facility] 00:00:00 [facility] Varicella 2010-07-16 Completed [facility] (varivax)(chicken 00:00:00 [place] [facility] pox) [facility] Meningococcal 2010-07-16 Completed [facility] Polysaccharide 00:00:00 [facility] (groups A, C, Y and Branc h W-135) conjugate vaccine (MCV4P) TDAP 2010-07-16 Completed [facility] 00:00:00 [facility] Varicella 2010-07-16 Completed [facility] (varivax)(chicken 00:00:00 [place] [facility] pox) [facility] Meningococcal 2010-07-16 Completed [facility] Polysaccharide 00:00:00 [place] [facility] (groups A, C, Y and Branc h W-135) conjugate vaccine (MCV4P) TDAP 2010-07-16 Completed [facility] 00:00:00 [facility] Varicella 2010-07-16 Completed [facility] (varivax)(chicken 00:00:00 [place] [facility] pox) Branch Meningococcal 2010-07-16 Completed [facility] Polysaccharide 00:00:00 [place] [facility] (groups A, C, Y and Branc h W-135) conjugate vaccine (MCV4P) TDAP 2010-07-16 Completed [facility] 00:00:00 [facility] Varicella 2010-07-16 Completed [facility] (varivax)(chicken 00:00:00 [place] [facility] pox) Branch Meningococcal 2010-07-16 Completed [facility] Polysaccharide 00:00:00 [place] [facility] (groups A, C, Y and Branc h W-135) conjugate vaccine (MCV4P) TDAP 2010-07-16 Completed [facility] 00:00:00 [facility] Varicella 2010-07-16 Completed [facility] (varivax)(chicken 00:00:00 [place] [facility] pox) [facility] Meningococcal 2010-07-16 Completed [facility] Polysaccharide 00:00:00 [place] [facility] (groups A, C, Y and Branc h W-135) conjugate vaccine (MCV4P) TDAP 2010-07-16 Completed [facility] 00:00:00 [facility] Varicella 2010-07-16 Completed [facility] (varivax)(chicken 00:00:00 [place] [facility] pox) Branch Meningococcal 2010-07-16 Completed [facility] Polysaccharide 00:00:00 [place] [facility] (groups A, C, Y and Branc h W-135) conjugate vaccine (MCV4P) TDAP 2010-07-16 Completed [facility] 00:00:00 [facility] Varicella 2010-07-16 Completed [facility] (varivax)(chicken 00:00:00 [place] [facility] pox) Branch Meningococcal 2010-07-16 Completed [facility] Polysaccharide 00:00:00 [place] [facility] (groups A, C, Y and Branc h W-135) conjugate vaccine (MCV4P) TDAP 2010-07-16 Completed [facility] 00:00:00 [facility] Varicella 2010-07-16 Completed [facility] (varivax)(chicken 00:00:00 [place] [facility] pox) Branch Meningococcal 2010-07-16 Completed [facility] Polysaccharide 00:00:00 [place] [facility] (groups A, C, Y and Branc h W-135) conjugate vaccine (MCV4P) TDAP 2010-07-16 Completed [facility] 00:00:00 [facility] Varicella 2010-07-16 Completed [facility] (varivax)(chicken 00:00:00 [place] [facility] pox) Branch Meningococcal 2010-07-16 Completed [facility] Polysaccharide 00:00:00 [place] [facility] (groups A, C, Y and Branc h W-135) conjugate vaccine (MCV4P) TDAP 2010-07-16 Completed [facility] 00:00:00 [facility] Varicella 2010-07-16 Completed [facility] (varivax)(chicken 00:00:00 [place] [facility] pox) Branch Meningococcal 2010-07-16 Completed [facility] Polysaccharide 00:00:00 [place] [facility] (groups A, C, Y and Branc h W-135) conjugate vaccine (MCV4P) TDAP 2010-07-16 Completed [facility] 00:00:00 [facility] Varicella 2010-07-16 Completed [facility] (varivax)(chicken 00:00:00 [place] [facility] pox) Branch Meningococcal 2010-07-16 Completed [facility] Polysaccharide 00:00:00 [place] [facility] (groups A, C, Y and Branc h W-135) conjugate vaccine (MCV4P) TDAP 2010-07-16 Completed [facility] 00:00:00 [facility] Varicella 2010-07-16 Completed [facility] (varivax)(chicken 00:00:00 [place] [facility] pox) Branch Meningococcal 2010-07-16 Completed [facility] Polysaccharide 00:00:00 [place] [facility] (groups A, C, Y and Branc h W-135) conjugate vaccine (MCV4P) TDAP 2010-07-16 Completed [facility] 00:00:00 [facility] Varicella 2010-07-16 Completed [facility] (varivax)(chicken 00:00:00 [place] [facility] pox) Branch Meningococcal 2010-07-16 Completed [facility] Polysaccharide 00:00:00 [facility] gonzalo (groups A, C, Y and Branc h W-135) conjugate vaccine (MCV4P) TDAP 2010-07-16 Completed [facility] 00:00:00 [facility] Varicella 2010-07-16 Completed [facility] (varivax)(chicken 00:00:00 [place] [facility] pox) Branch Meningococcal 2010-07-16 Completed [facility] Polysaccharide 00:00:00 [facility] gonzalo (groups A, C, Y and Branc h W-135) conjugate vaccine (MCV4P) TDAP 2010-07-16 Completed [facility] 00:00:00 [facility] Varicella 2010-07-16 Completed [facility] (varivax)(chicken 00:00:00 [place] [facility] pox) Branch Meningococcal 2010-07-16 Completed [facility] Polysaccharide 00:00:00 [place] [facility] (groups A, C, Y and Branc h W-135) conjugate vaccine (MCV4P) TDAP 2010-07-16 Completed [facility] 00:00:00 [facility] Varicella 2010-07-16 Completed [facility] (varivax)(chicken 00:00:00 [place] [facility] pox) Branch Meningococcal 2010-07-16 Completed [facility] Polysaccharide 00:00:00 [place] [facility] (groups A, C, Y and Branc h W-135) conjugate vaccine (MCV4P) TDAP 2010-07-16 Completed [facility] 00:00:00 [facility] Varicella 2010-07-16 Completed [facility] (varivax)(chicken 00:00:00 [place] [facility] pox) Branch Meningococcal 2010-07-16 Completed [facility] Polysaccharide 00:00:00 [place] [facility] (groups A, C, Y and Branc h W-135) conjugate vaccine (MCV4P) TDAP 2010-07-16 Completed [facility] 00:00:00 [facility] Varicella 2010-07-16 Completed [facility] (varivax)(chicken 00:00:00 [place] [facility] pox) Branch Meningococcal 2010-07-16 Completed [facility] Polysaccharide 00:00:00 [place] [facility] (groups A, C, Y and Branc h W-135) conjugate vaccine (MCV4P) TDAP 2010-07-16 Completed [facility] 00:00:00 [facility] Varicella 2010-07-16 Completed [facility] (varivax)(chicken 00:00:00 [place] [facility] pox) Branch Meningococcal 2010-07-16 Completed [facility] Polysaccharide 00:00:00 [place] [facility] (groups A, C, Y and Branc h W-135) conjugate vaccine (MCV4P) TDAP 2010-07-16 Completed [facility] 00:00:00 [facility] Varicella 2010-07-16 Completed [facility] (varivax)(chicken 00:00:00 [place] [facility] pox) [facility] IPV 2004-01-13 Completed [facility] 00:00:00 [facility] DTaP, Unspecified 2004-01-13 Completed Univers ity of Formulation 00:00:00 [facility] IPV 2004-01-13 Completed [facility] 00:00:00 [facility] DTaP, Unspecified 2004-01-13 Completed [facility] ity of Formulation 00:00:00 [facility] IPV 2004-01-13 Completed [facility] 00:00:00 [facility] DTaP, Unspecified 2004-01-13 Completed [facility] ity of Formulation 00:00:00 [facility] IPV 2004-01-13 Completed [facility] 00:00:00 [facility] DTaP, Unspecified 2004-01-13 Completed [facility]y of Formulation 00:00:00 [facility] IPV 2004-01-13 Completed [facility] 00:00:00 [facility] DTaP, Unspecified 2004-01-13 Completed [facility] ity of Formulation 00:00:00 [facility] IPV 2004-01-13 Completed [facility] 00:00:00 [facility] DTaP, Unspecified 2004-01-13 Completed [facility] Formulation 00:00:00 [facility] IPV 2004-01-13 Completed [facility] 00:00:00 [facility] DTaP, Unspecified 2004-01-13 Completed [facility] ity of Formulation 00:00:00 [facility] IPV 2004-01-13 Completed [facility] 00:00:00 [facility] DTaP, Unspecified 2004-01-13 Completed [facility]y of Formulation 00:00:00 [facility] IPV 2004-01-13 Completed [facility] 00:00:00 [facility] DTaP, Unspecified 2004-01-13 Completed [facility] of Formulation 00:00:00 [facility] IPV 2004-01-13 Completed [facility] 00:00:00 [facility] DTaP, Unspecified 2004-01-13 Completed [facility] ity of Formulation 00:00:00 [facility] IPV 2004-01-13 Completed [facility] 00:00:00 [facility] DTaP, Unspecified 2004-01-13 Completed [facility] ity [facility] Formulation 00:00:00 [facility] IPV 2004-01-13 Completed [facility] 00:00:00 [facility] DTaP, Unspecified 2004-01-13 Completed [facility] Formulation 00:00:00 [facility] IPV 2004-01-13 Completed [facility] 00:00:00 [facility] DTaP, Unspecified 2004-01-13 Completed [facility] Formulation 00:00:00 [facility] IPV 2004-01-13 Completed [facility] 00:00:00 [facility] DTaP, Unspecified 2004-01-13 Completed [facility] Formulation 00:00:00 [facility] IPV 2004-01-13 Completed [facility] 00:00:00 [facility] DTaP, Unspecified 2004-01-13 Completed [facility] Formulation 00:00:00 [facility] IPV 2004-01-13 Completed [facility] 00:00:00 [facility] DTaP, Unspecified 2004-01-13 Completed [facility] Formulation 00:00:00 [facility] IPV 2004-01-13 Completed [facility] 00:00:00 [facility] DTaP, Unspecified 2004-01-13 Completed [facility]y [facility] Formulation 00:00:00 [facility] IPV 2004-01-13 Completed [facility] 00:00:00 [facility] DTaP, Unspecified 2004-01-13 Completed Univers ity [...] 2004-01-13 Completed [facility] it[facility] Formulation 00:00:00 [facility] DTAP 2003-11-18 Completed [facility] 00:00:00 [facility] Hep B, Adol or Pedi 2003-11-18 Completed Unive rsity of Dosage 00:00:00 [facility] MMR 2003-11-18 Completed [facility] 00:00:00 [facility] DTAP 2003-11-18 Completed [facility] 00:00:00 [facility] Hep B, Adol or Pedi 2003-11-18 Completed Unive rsity of Dosage 00:00:00 [facility] MMR 2003-11-18 Completed [facility] 00:00:00 [facility] DTAP 2003-11-18 Completed [facility] 00:00:00 [facility] Hep B, Adol or Pedi 2003-11-18 Completed Unive rsity of Dosage 00:00:00 [facility] MMR 2003-11-18 Completed [facility] 00:00:00 [facility] DTAP 2003-11-18 Completed [facility] 00:00:00 [facility] Hep B, Adol or Pedi 2003-11-18 Completed Unive rsity of Dosage 00:00:00 [facility] MMR 2003-11-18 Completed [facility] 00:00:00 [facility] DTAP 2003-11-18 Completed [facility] 00:00:00 [facility] Hep B, Adol or Pedi 2003-11-18 Completed [facility]ive rsity of Dosage 00:00:00 [facility] MMR 2003-11-18 Completed [facility] 00:00:00 [facility] DTAP 2003-11-18 Completed [facility] 00:00:00 [facility] Hep B, Adol or Pedi 2003-11-18 Completed Unive rsity of Dosage 00:00:00 [facility] MMR 2003-11-18 Completed [facility] 00:00:00 [facility] DTAP 2003-11-18 Completed [facility] 00:00:00 [facility] Hep B, Adol or Pedi 2003-11-18 Completed Unive rsity of Dosage 00:00:00 [facility] MMR 2003-11-18 Completed [facility] 00:00:00 [facility] DTAP 2003-11-18 Completed [facility] 00:00:00 [facility] Hep B, Adol or Pedi 2003-11-18 Completed Unive rsity of Dosage 00:00:00 [facility] MMR 2003-11-18 Completed [facility] 00:00:00 [facility] DTaP, Unspecified 2003-11-18 Completed Univers [facility] Formulation 00:00:00 [facility] IPV 2003-11-18 Completed [facility] 00:00:00 [facility] DTAP 2003-11-18 Completed [facility] 00:00:00 [facility] Hep B, Adol or Pedi 2003-11-18 Completed Unive rsity of Dosage 00:00:00 [facility] MMR 2003-11-18 Completed [facility] 00:00:00 [facility] DTaP, Unspecified 2003-11-18 Completed [facility] Formulation 00:00:00 [facility] IPV 2003-11-18 Completed [facility] 00:00:00 [facility] DTAP 2003-11-18 Completed [facility] 00:00:00 [facility] Hep B, Adol or Pedi 2003-11-18 Completed Unive rsity of Dosage 00:00:00 [facility] MMR 2003-11-18 Completed [facility] 00:00:00 [facility] DTaP, Unspecified 2003-11-18 Completed [facility] Formulation 00:00:00 [facility] IPV 2003-11-18 Completed [facility] 00:00:00 [facility] DTAP 2003-11-18 Completed [facility] 00:00:00 [facility] Hep B, Adol or Pedi 2003-11-18 Completed Unive rsity of Dosage 00:00:00 [facility] MMR 2003-11-18 Completed [facility] 00:00:00 [facility] DTaP, Unspecified 2003-11-18 Completed [facility] Formulation 00:00:00 [facility] IPV 2003-11-18 Completed [facility] 00:00:00 [facility] DTAP 2003-11-18 Completed [facility] 00:00:00 [facility] Hep B, Adol or Pedi 2003-11-18 Completed Unive rsity of Dosage 00:00:00 [facility] MMR 2003-11-18 Completed [facility] 00:00:00 [facility] DTaP, Unspecified 2003-11-18 Completed [facility] Formulation 00:00:00 [facility] IPV 2003-11-18 Completed [facility] 00:00:00 [facility] DTAP 2003-11-18 Completed [facility] 00:00:00 [facility] Hep B, Adol or Pedi 2003-11-18 Completed Unive rsity of Dosage 00:00:00 [facility] MMR 2003-11-18 Completed [facility] 00:00:00 [facility] DTaP, Unspecified 2003-11-18 Completed [facility] Formulation 00:00:00 [facility] IPV 2003-11-18 Completed [facility] 00:00:00 [facility] DTAP 2003-11-18 Completed [facility] 00:00:00 [facility] Hep B, Adol or Pedi 2003-11-18 Completed Unive rsity of Dosage 00:00:00 [facility] MMR 2003-11-18 Completed [facility] 00:00:00 [facility] DTaP, Unspecified 2003-11-18 Completed [facility] Formulation 00:00:00 [facility] IPV 2003-11-18 Completed [facility] 00:00:00 [facility] DTAP 2003-11-18 Completed [facility] 00:00:00 [facility] Hep B, Adol or Pedi 2003-11-18 Completed Unive rsity of Dosage 00:00:00 [facility] MMR 2003-11-18 Completed [facility] 00:00:00 [facility] DTaP, Unspecified 2003-11-18 Completed [facility] Formulation 00:00:00 [facility] IPV 2003-11-18 Completed [facility] 00:00:00 [facility] DTAP 2003-11-18 Completed [facility] 00:00:00 [facility] Hep B, Adol or Pedi 2003-11-18 Completed [facility]ive rsity of Dosage 00:00:00 [facility] MMR 2003-11-18 Completed [facility] 00:00:00 [facility] DTaP, Unspecified 2003-11-18 Completed [facility] Formulation 00:00:00 [facility] IPV 2003-11-18 Completed [facility] 00:00:00 [facility] DTAP 2003-11-18 Completed [facility] 00:00:00 [facility] Hep B, Adol or Pedi 2003-11-18 Completed [facility] rs[facility] of Dosage 00:00:00 [facility] MMR 2003-11-18 Completed [facility] 00:00:00 [facility] DTaP, Unspecified 2003-11-18 Completed [facility] Formulation 00:00:00 [facility] IPV 2003-11-18 Completed [facility] 00:00:00 [facility] DTAP 2003-11-18 Completed [facility] 00:00:00 [facility] Hep B, Adol or Pedi 2003-11-18 Completed [facility]ive rsity of Dosage 00:00:00 [facility] MMR 2003-11-18 Completed [facility] 00:00:00 [facility] DTaP, Unspecified 2003-11-18 Completed [facility] Formulation 00:00:00 [facility] IPV 2003-11-18 Completed [facility] 00:00:00 [facility] DTAP 2003-11-18 Completed [facility] 00:00:00 [facility] Hep B, Adol or Pedi 2003-11-18 Completed [facility] rsity of Dosage 00:00:00 [facility] MMR 2003-11-18 Completed [facility] 00:00:00 [facility] DTaP, Unspecified 2003-11-18 Completed [facility] Formulation 00:00:00 [facility] IPV 2003-11-18 Completed [facility] 00:00:00 [facility] DTAP 2003-11-18 Completed [facility] 00:00:00 [facility] Hep B, Adol or Pedi 2003-11-18 Completed Un[facility] rs[facility] of Dosage 00:00:00 [facility] MMR 2003-11-18 Completed [facility] 00:00:00 [facility] DTaP, Unspecified 2003-11-18 Completed [facility] Formulation 00:00:00 [facility] IPV 2003-11-18 Completed [facility] 00:00:00 [facility] DTAP 2003-11-18 Completed [facility] 00:00:00 [facility] Hep B, Adol or Pedi 2003-11-18 Completed [facility] rsity of Dosage 00:00:00 [facility] MMR 2003-11-18 Completed [facility] 00:00:00 [facility] DTaP, Unspecified 2003-11-18 Completed [facility] Formulation 00:00:00 [facility] IPV 2003-11-18 Completed [facility] 00:00:00 [facility] DTAP 2003-11-18 Completed [facility] 00:00:00 [facility] Hep B, Adol or Pedi 2003-11-18 Completed [facility]ive rsity of Dosage 00:00:00 [facility] MMR 2003-11-18 Completed [facility] 00:00:00 [facility] DTaP, Unspecified 2003-11-18 Completed [facility] Formulation 00:00:00 [facility] IPV 2003-11-18 Completed [facility] 00:00:00 [facility] DTAP 2003-11-18 Completed [facility] 00:00:00 [facility] Hep B, Adol or Pedi 2003-11-18 Completed [facility] rsity of Dosage 00:00:00 [facility] MMR 2003-11-18 Completed [facility] 00:00:00 [facility] DTaP, Unspecified 2003-11-18 Completed [facility] Formulation 00:00:00 [facility] IPV 2003-11-18 Completed [facility] 00:00:00 [facility] DTAP 2003-11-18 Completed [facility] 00:00:00 [facility] Hep B, Adol or Pedi 2003-11-18 Completed Un[facility] rsity of Dosage 00:00:00 [facility] MMR 2003-11-18 Completed [facility] 00:00:00 [facility] DTaP, Unspecified 2003-11-18 Completed [facility] Formulation 00:00:00 [facility] IPV 2003-11-18 Completed [facility] 00:00:00 [facility] DTAP 2003-11-18 Completed [facility] 00:00:00 [facility] Hep B, Adol or Pedi 2003-11-18 Completed [facility] rs[facility] of Dosage 00:00:00 [facility] MMR 2003-11-18 Completed [facility] 00:00:00 [facility] DTaP, Unspecified 2003-11-18 Completed [facility] Formulation 00:00:00 [facility] IPV 2003-11-18 Completed [facility] 00:00:00 [facility] DTAP 2003-11-18 Completed [facility] 00:00:00 [facility] Hep B, Adol or Pedi 2003-11-18 Completed Un[facility] rs[facility] of Dosage 00:00:00 [facility] MMR 2003-11-18 Completed [facility] 00:00:00 [facility] DTaP, Unspecified 2003-11-18 Completed [facility] Formulation 00:00:00 [facility] IPV 2003-11-18 Completed [facility] 00:00:00 [facility] DTAP 2003-11-18 Completed [facility] 00:00:00 [facility] Hep B, Adol or Pedi 2003-11-18 Completed Un[facility] rs[facility] of Dosage 00:00:00 [facility] MMR 2003-11-18 Completed [facility] 00:00:00 [facility] DTaP, Unspecified 2003-11-18 Completed [facility] Formulation 00:00:00 [facility] IPV 2003-11-18 Completed [facility] 00:00:00 [facility] DTAP 2003-11-18 Completed [facility] 00:00:00 [facility] Hep B, Adol or Pedi 2003-11-18 Completed [facility] rs[facility] of Dosage 00:00:00 [facility] MMR 2003-11-18 Completed [facility] 00:00:00 [facility] DTaP, Unspecified 2003-11-18 Completed [facility] Formulation 00:00:00 [facility] IPV 2003-11-18 Completed [facility] 00:00:00 [facility] DTAP 2003-11-18 Completed [facility] 00:00:00 [facility] Hep B, Adol or Pedi 2003-11-18 Completed [facility] of Dosage 00:00:00 [facility] MMR 2003-11-18 Completed [facility] 00:00:00 [facility] DTaP, Unspecified 2003-11-18 Completed [facility] Formulation 00:00:00 [facility] IPV 2003-11-18 Completed [facility] 00:00:00 [facility] DTAP 2003-11-18 Completed [facility] 00:00:00 [facility] Hep B, Adol or Pedi 2003-11-18 Completed [facility] of Dosage 00:00:00 [facility] MMR 2003-11-18 Completed [facility] 00:00:00 [facility] DTaP, Unspecified 2003-11-18 Completed [facility] Formulation 00:00:00 [facility] IPV 2003-11-18 Completed [facility] 00:00:00 [facility] DTAP 2003-11-18 Completed [facility] 00:00:00 [facility] Hep B, Adol or Pedi 2003-11-18 Completed [facility] of Dosage 00:00:00 [facility] MMR 2003-11-18 Completed [facility] 00:00:00 [facility] DTaP, Unspecified 2003-11-18 Completed [facility] Formulation 00:00:00 [facility] IPV 2003-11-18 Completed [facility] 00:00:00 [facility] DTAP 2003-11-18 Completed [facility] 00:00:00 [facility] Hep B, Adol or Pedi 2003-11-18 Completed [facility] of Dosage 00:00:00 [facility] MMR 2003-11-18 Completed [facility] 00:00:00 [facility] DTaP, Unspecified 2003-11-18 Completed [facility] Formulation 00:00:00 [facility] IPV 2003-11-18 Completed [facility] 00:00:00 [facility] DTAP 2003-08-26 Completed [facility] 00:00:00 [facility] Hep B, Adol or Pedi 2003-08-26 Completed [facility] of Dosage 00:00:00 [facility] MMR 2003-08-26 Completed [facility] 00:00:00 [facility] Polio (IPV/OPV) 2003-08-26 Completed [facility] 00:00:00 [facility] Varicella 2003-08-26 Completed [facility] of (varivax)(chicken 00:00:00 [place] [facility] pox) [facility] DTAP 2003-08-26 Completed [facility] 00:00:00 [facility] Hep B, Adol or Pedi 2003-08-26 Completed Unive rsity of Dosage 00:00:00 [facility] MMR 2003-08-26 Completed [facility] 00:00:00 [facility] Polio (IPV/OPV) 2003-08-26 Completed [facility] 00:00:00 [facility] Varicella 2003-08-26 Completed [facility] (varivax)(chicken 00:00:00 [place] [facility] pox) [facility] DTAP 2003-08-26 Completed [facility] 00:00:00 [facility] Hep B, Adol or Pedi 2003-08-26 Completed [facility] rs[facility] of Dosage 00:00:00 [facility] MMR 2003-08-26 Completed [facility] 00:00:00 [facility] Polio (IPV/OPV) 2003-08-26 Completed [facility] 00:00:00 [facility] Varicella 2003-08-26 Completed [facility] (varivax)(chicken 00:00:00 [place] [facility] pox) [facility] DTAP 2003-08-26 Completed [facility] 00:00:00 [facility] Hep B, Adol or Pedi 2003-08-26 Completed [facility]ive rs[facility] of Dosage 00:00:00 [facility] MMR 2003-08-26 Completed [facility] 00:00:00 [facility] Polio (IPV/OPV) 2003-08-26 Completed [facility] 00:00:00 [facility] Varicella 2003-08-26 Completed [facility] (varivax)(chicken 00:00:00 [place] [facility] pox) [facility] DTAP 2003-08-26 Completed [facility] 00:00:00 [facility] Hep B, Adol or Pedi 2003-08-26 Completed [facility] rs[facility] of Dosage 00:00:00 [facility] MMR 2003-08-26 Completed [facility] 00:00:00 [facility] Polio (IPV/OPV) 2003-08-26 Completed [facility] 00:00:00 [facility] Varicella 2003-08-26 Completed [facility] (varivax)(chicken 00:00:00 [place] [facility] pox) [facility] DTAP 2003-08-26 Completed [facility] 00:00:00 [facility] Hep B, Adol or Pedi 2003-08-26 Completed [facility] rs[facility] of Dosage 00:00:00 [facility] MMR 2003-08-26 Completed [facility] 00:00:00 [facility] Polio (IPV/OPV) 2003-08-26 Completed [facility] 00:00:00 [facility] Varicella 2003-08-26 Completed [facility] (varivax)(chicken 00:00:00 [place] [facility] pox) [facility] DTAP 2003-08-26 Completed [facility] 00:00:00 [facility] Hep B, Adol or Pedi 2003-08-26 Completed [facility] of Dosage 00:00:00 [facility] MMR 2003-08-26 Completed [facility] 00:00:00 [facility] Polio (IPV/OPV) 2003-08-26 Completed [facility] 00:00:00 [facility] Varicella 2003-08-26 Completed [facility] (varivax)(chicken 00:00:00 [place] [facility] pox) [facility] DTAP 2003-08-26 Completed [facility] 00:00:00 [facility] Hep B, Adol or Pedi 2003-08-26 Completed [facility]ive rs[facility] of Dosage 00:00:00 [facility] MMR 2003-08-26 Completed [facility] 00:00:00 [facility] Polio (IPV/OPV) 2003-08-26 Completed [facility] 00:00:00 [facility] Varicella 2003-08-26 Completed [facility] of (varivax)(chicken 00:00:00 [facility] edical pox) Branch DTaP, Unspecified 2003-08-26 Completed Univers ity of Formulation 00:00:00 [facility] Pneumococcal 7 2003-08-26 Completed [facility] of Conjugate, PCV7 00:00:00 [place] [facility] (Prevnar7) Branch IPV 2003-08-26 Completed [facility] 00:00:00 [facility] DTAP 2003-08-26 Completed [facility] 00:00:00 [facility] Hep B, Adol or Pedi 2003-08-26 Completed [facility]ive rs[facility] of Dosage 00:00:00 [facility] MMR 2003-08-26 Completed [facility] 00:00:00 [facility] Polio (IPV/OPV) 2003-08-26 Completed [facility] 00:00:00 [facility] Varicella 2003-08-26 Completed [facility] (varivax)(chicken 00:00:00 [place] [facility] pox) [facility] DTaP, Unspecified 2003-08-26 Completed [facility] it[facility] of Formulation 00:00:00 [facility] Pneumococcal 7 2003-08-26 Completed [facility] of Conjugate, PCV7 00:00:00 [place] [facility] (Prevnar7) Branch IPV 2003-08-26 Completed [facility] 00:00:00 [facility] DTAP 2003-08-26 Completed [facility] 00:00:00 [facility] Hep B, Adol or Pedi 2003-08-26 Completed [facility]ive rsity of Dosage 00:00:00 [facility] MMR 2003-08-26 Completed [facility] 00:00:00 [facility] Polio (IPV/OPV) 2003-08-26 Completed [facility] 00:00:00 [facility] Varicella 2003-08-26 Completed [facility] of (varivax)(chicken 00:00:00 [facility] edical pox) Branch DTaP, Unspecified 2003-08-26 Completed [facility] ity of Formulation 00:00:00 [facility] Pneumococcal 7 2003-08-26 Completed [facility] of Conjugate, PCV7 00:00:00 [place] [facility] (Prevnar7) Branch IPV 2003-08-26 Completed [facility] 00:00:00 [facility] DTAP 2003-08-26 Completed [facility] 00:00:00 [facility] Hep B, Adol or Pedi 2003-08-26 Completed [facility]ive rsity of Dosage 00:00:00 [facility] MMR 2003-08-26 Completed [facility] of 00:00:00 [facility] Polio (IPV/OPV) 2003-08-26 Completed [facility] 00:00:00 [facility] Varicella 2003-08-26 Completed [facility] of (varivax)(chicken 00:00:00 [facility] edical pox) Branch DTaP, Unspecified 2003-08-26 Completed [facility] ity of Formulation 00:00:00 [facility] Pneumococcal 7 2003-08-26 Completed [facility] of Conjugate, PCV7 00:00:00 [place] [facility] (Prevnar7) Branch IPV 2003-08-26 Completed [facility] 00:00:00 [facility] DTAP 2003-08-26 Completed [facility] 00:00:00 [facility] Hep B, Adol or Pedi 2003-08-26 Completed [facility]ive rsity of Dosage 00:00:00 [facility] MMR 2003-08-26 Completed [facility] 00:00:00 [facility] Polio (IPV/OPV) 2003-08-26 Completed [facility] 00:00:00 [facility] Varicella 2003-08-26 Completed [facility] (varivax)(chicken 00:00:00 [facility] edical pox) Branch DTaP, Unspecified 2003-08-26 Completed [facility] ity of Formulation 00:00:00 [facility] Pneumococcal 7 2003-08-26 Completed [facility] of Conjugate, PCV7 00:00:00 [place] [facility] (Prevnar7) [facility] IPV 2003-08-26 Completed [facility] 00:00:00 [facility] DTAP 2003-08-26 Completed [facility] 00:00:00 [facility] Hep B, Adol or Pedi 2003-08-26 Completed Unive rsity of Dosage 00:00:00 [facility] MMR 2003-08-26 Completed [facility] 00:00:00 [facility] Polio (IPV/OPV) 2003-08-26 Completed [facility] 00:00:00 [facility] Varicella 2003-08-26 Completed [facility] (varivax)(chicken 00:00:00 [facility] edical pox) Branch DTaP, Unspecified 2003-08-26 Completed [facility] ity of Formulation 00:00:00 [facility] Pneumococcal 7 2003-08-26 Completed [facility] of Conjugate, PCV7 00:00:00 [place] [facility] (Prevnar7) Branch IPV 2003-08-26 Completed [facility] 00:00:00 [facility] DTAP 2003-08-26 Completed [facility] 00:00:00 [facility] Hep B, Adol or Pedi 2003-08-26 Completed Unive rsity of Dosage 00:00:00 [facility] MMR 2003-08-26 Completed [facility] 00:00:00 [facility] Polio (IPV/OPV) 2003-08-26 Completed [facility] 00:00:00 [facility] Varicella 2003-08-26 Completed [facility] (varivax)(chicken 00:00:00 [facility] edical pox) Branch DTaP, Unspecified 2003-08-26 Completed [facility] it[facility] of Formulation 00:00:00 [facility] Pneumococcal 7 2003-08-26 Completed [facility] of Conjugate, PCV7 00:00:00 [place] [facility] (Prevnar7) Branch IPV 2003-08-26 Completed [facility] 00:00:00 [facility] DTAP 2003-08-26 Completed [facility] 00:00:00 [facility] Hep B, Adol or Pedi 2003-08-26 Completed Unive rsity of Dosage 00:00:00 [facility] MMR 2003-08-26 Completed [facility] of 00:00:00 [facility] Polio (IPV/OPV) 2003-08-26 Completed [facility] 00:00:00 [facility] Varicella 2003-08-26 Completed [facility] (varivax)(chicken 00:00:00 [place] [facility] pox) [facility] DTaP, Unspecified 2003-08-26 Completed [facility] it[facility] of Formulation 00:00:00 [facility] Pneumococcal 7 2003-08-26 Completed [facility] of Conjugate, PCV7 00:00:00 [place] [facility] (Prevnar7) Branch IPV 2003-08-26 Completed [facility] 00:00:00 [facility] DTAP 2003-08-26 Completed [facility] 00:00:00 [facility] Hep B, Adol or Pedi 2003-08-26 Completed Unive rsity of Dosage 00:00:00 [facility] MMR 2003-08-26 Completed [facility] 00:00:00 [facility] Polio (IPV/OPV) 2003-08-26 Completed [facility] 00:00:00 [facility] Varicella 2003-08-26 Completed [facility] (varivax)(chicken 00:00:00 [facility] edical pox) Branch DTaP, Unspecified 2003-08-26 Completed [facility] it[facility] of Formulation 00:00:00 [facility] Pneumococcal 7 2003-08-26 Completed [facility] of Conjugate, PCV7 00:00:00 [place] [facility] (Prevnar7) Branch IPV 2003-08-26 Completed [facility] 00:00:00 [facility] DTAP 2003-08-26 Completed [facility] 00:00:00 [facility] Hep B, Adol or Pedi 2003-08-26 Completed Unive rsity of Dosage 00:00:00 [facility] MMR 2003-08-26 Completed [facility] 00:00:00 [facility] Polio (IPV/OPV) 2003-08-26 Completed [facility] 00:00:00 [facility] Varicella 2003-08-26 Completed [facility] of (varivax)(chicken 00:00:00 [facility] edical pox) Branch DTaP, Unspecified 2003-08-26 Completed [facility] ity of Formulation 00:00:00 [facility] Pneumococcal 7 2003-08-26 Completed [facility] Conjugate, PCV7 00:00:00 [place] [facility] (Prevnar7) Branch IPV 2003-08-26 Completed [facility] 00:00:00 [facility] DTAP 2003-08-26 Completed [facility] 00:00:00 [facility] Hep B, Adol or Pedi 2003-08-26 Completed Unive rsity of Dosage 00:00:00 [facility] MMR 2003-08-26 Completed [facility] 00:00:00 [facility] Polio (IPV/OPV) 2003-08-26 Completed [facility] 00:00:00 [facility] Varicella 2003-08-26 Completed [facility] (varivax)(chicken 00:00:00 [place] [facility] pox) Branch DTaP, Unspecified 2003-08-26 Completed [facility] Formulation 00:00:00 [facility] Pneumococcal 7 2003-08-26 Completed [facility] of Conjugate, PCV7 00:00:00 [place] [facility] (Prevnar7) Branch IPV 2003-08-26 Completed [facility] 00:00:00 [facility] DTAP 2003-08-26 Completed [facility] 00:00:00 [facility] Hep B, Adol or Pedi 2003-08-26 Completed Unive rsity of Dosage 00:00:00 [facility] MMR 2003-08-26 Completed [facility] 00:00:00 [facility] Polio (IPV/OPV) 2003-08-26 Completed [facility] 00:00:00 [facility] Varicella 2003-08-26 Completed [facility] (varivax)(chicken 00:00:00 [facility] edical pox) Branch DTaP, Unspecified 2003-08-26 Completed [facility] it[facility] of Formulation 00:00:00 [facility] Pneumococcal 7 2003-08-26 Completed [facility] Conjugate, PCV7 00:00:00 [place] [facility] (Prevnar7) Branch IPV 2003-08-26 Completed [facility] 00:00:00 [facility] DTAP 2003-08-26 Completed [facility] 00:00:00 [facility] Hep B, Adol or Pedi 2003-08-26 Completed Unive rsity of Dosage 00:00:00 [facility] MMR 2003-08-26 Completed [facility] 00:00:00 [facility] Polio (IPV/OPV) 2003-08-26 Completed [facility] 00:00:00 [facility] Varicella 2003-08-26 Completed [facility] (varivax)(chicken 00:00:00 [place] [facility] pox) Branch DTaP, Unspecified 2003-08-26 Completed [facility] it[facility] of Formulation 00:00:00 [facility] Pneumococcal 7 2003-08-26 Completed [facility] of Conjugate, PCV7 00:00:00 [place] [facility] (Prevnar7) Branch IPV 2003-08-26 Completed [facility] 00:00:00 [facility] DTAP 2003-08-26 Completed [facility] 00:00:00 [facility] Hep B, Adol or Pedi 2003-08-26 Completed Unive rsity of Dosage 00:00:00 [facility] MMR 2003-08-26 Completed [facility] 00:00:00 [facility] Polio (IPV/OPV) 2003-08-26 Completed [facility] 00:00:00 [facility] Varicella 2003-08-26 Completed [facility] (varivax)(chicken 00:00:00 [facility] edical pox) Branch DTaP, Unspecified 2003-08-26 Completed [facility] it[facility] of Formulation 00:00:00 [facility] Pneumococcal 7 2003-08-26 Completed [facility] Conjugate, PCV7 00:00:00 [place] [facility] (Prevnar7) Branch IPV 2003-08-26 Completed [facility] 00:00:00 [facility] DTAP 2003-08-26 Completed [facility] 00:00:00 [facility] Hep B, Adol or Pedi 2003-08-26 Completed Unive rsity of Dosage 00:00:00 [facility] MMR 2003-08-26 Completed [facility] 00:00:00 [facility] Polio (IPV/OPV) 2003-08-26 Completed [facility] 00:00:00 [facility] Varicella 2003-08-26 Completed [facility] (varivax)(chicken 00:00:00 [facility] edical pox) Branch DTaP, Unspecified 2003-08-26 Completed [facility] of Formulation 00:00:00 [facility] Pneumococcal 7 2003-08-26 Completed [facility] Conjugate, PCV7 00:00:00 [place] [facility] (Prevnar7) Branch IPV 2003-08-26 Completed [facility] 00:00:00 [facility] DTAP 2003-08-26 Completed [facility] 00:00:00 [facility] Hep B, Adol or Pedi 2003-08-26 Completed Unive rsity of Dosage 00:00:00 [facility] MMR 2003-08-26 Completed [facility] 00:00:00 [facility] Polio (IPV/OPV) 2003-08-26 Completed [facility] 00:00:00 [facility] Varicella 2003-08-26 Completed [facility] (varivax)(chicken 00:00:00 [place] [facility] pox) Branch DTaP, Unspecified 2003-08-26 Completed [facility] Formulation 00:00:00 [facility] Pneumococcal 7 2003-08-26 Completed [facility] of Conjugate, PCV7 00:00:00 [place] [facility] (Prevnar7) Branch IPV 2003-08-26 Completed [facility] 00:00:00 [facility] DTAP 2003-08-26 Completed [facility] 00:00:00 [facility] Hep B, Adol or Pedi 2003-08-26 Completed Unive rsity of Dosage 00:00:00 [facility] MMR 2003-08-26 Completed [facility] 00:00:00 [facility] Polio (IPV/OPV) 2003-08-26 Completed [facility] 00:00:00 [facility] Varicella 2003-08-26 Completed [facility] (varivax)(chicken 00:00:00 [facility] edical pox) Branch DTaP, Unspecified 2003-08-26 Completed [facility] of Formulation 00:00:00 [facility] Pneumococcal 7 2003-08-26 Completed [facility] of Conjugate, PCV7 00:00:00 [place] [facility] (Prevnar7) Branch IPV 2003-08-26 Completed [facility] 00:00:00 [facility] DTAP 2003-08-26 Completed [facility] 00:00:00 [facility] Hep B, Adol or Pedi 2003-08-26 Completed Unive rsity of Dosage 00:00:00 [facility] MMR 2003-08-26 Completed [facility] of 00:00:00 [facility] Polio (IPV/OPV) 2003-08-26 Completed [facility] 00:00:00 [facility] Varicella 2003-08-26 Completed [facility] of (varivax)(chicken 00:00:00 [facility] edical pox) Branch DTaP, Unspecified 2003-08-26 Completed [facility] it[facility] of Formulation 00:00:00 [facility] Pneumococcal 7 2003-08-26 Completed [facility] Conjugate, PCV7 00:00:00 [place] [facility] (Prevnar7) Branch IPV 2003-08-26 Completed [facility] 00:00:00 [facility] DTAP 2003-08-26 Completed [facility] 00:00:00 [facility] Hep B, Adol or Pedi 2003-08-26 Completed Unive rsity of Dosage 00:00:00 [facility] MMR 2003-08-26 Completed [facility] 00:00:00 [facility] Polio (IPV/OPV) 2003-08-26 Completed [facility] 00:00:00 [facility] Varicella 2003-08-26 Completed [facility] (varivax)(chicken 00:00:00 [place] [facility] pox) Branch DTaP, Unspecified 2003-08-26 Completed [facility] Formulation 00:00:00 [facility] Pneumococcal 7 2003-08-26 Completed [facility] Conjugate, PCV7 00:00:00 [place] [facility] (Prevnar7) Branch IPV 2003-08-26 Completed [facility] 00:00:00 [facility] DTAP 2003-08-26 Completed [facility] 00:00:00 [facility] Hep B, Adol or Pedi 2003-08-26 Completed Unive rsity of Dosage 00:00:00 [facility] MMR 2003-08-26 Completed [facility] of 00:00:00 [facility] Polio (IPV/OPV) 2003-08-26 Completed [facility] 00:00:00 [facility] Varicella 2003-08-26 Completed [facility] of (varivax)(chicken 00:00:00 [facility] edical pox) Branch DTaP, Unspecified 2003-08-26 Completed [facility] it[facility] Formulation 00:00:00 [facility] Pneumococcal 7 2003-08-26 Completed [facility] Conjugate, PCV7 00:00:00 [place] [facility] (Prevnar7) Branch IPV 2003-08-26 Completed [facility] 00:00:00 [facility] DTAP 2003-08-26 Completed [facility] 00:00:00 [facility] Hep B, Adol or Pedi 2003-08-26 Completed Unive rsity of Dosage 00:00:00 [facility] MMR 2003-08-26 Completed [facility] 00:00:00 [facility] Polio (IPV/OPV) 2003-08-26 Completed [facility] 00:00:00 [facility] Varicella 2003-08-26 Completed [facility] (varivax)(chicken 00:00:00 [place] [facility] pox) Branch DTaP, Unspecified 2003-08-26 Completed [facility] it[facility] Formulation 00:00:00 [facility] Pneumococcal 7 2003-08-26 Completed [facility] Conjugate, PCV7 00:00:00 [place] [facility] (Prevnar7) Branch IPV 2003-08-26 Completed [facility] 00:00:00 [facility] DTAP 2003-08-26 Completed [facility] 00:00:00 [facility] Hep B, Adol or Pedi 2003-08-26 Completed Unive rsity of Dosage 00:00:00 [facility] MMR 2003-08-26 Completed [facility] of 00:00:00 [facility] Polio (IPV/OPV) 2003-08-26 Completed [facility] 00:00:00 [facility] Varicella 2003-08-26 Completed [facility] of (varivax)(chicken 00:00:00 [facility] edical pox) Branch DTaP, Unspecified 2003-08-26 Completed [facility] it[facility] of Formulation 00:00:00 [facility] Pneumococcal 7 2003-08-26 Completed [facility] of Conjugate, PCV7 00:00:00 [place] [facility] (Prevnar7) Branch IPV 2003-08-26 Completed [facility] 00:00:00 [facility] DTAP 2003-08-26 Completed [facility] 00:00:00 [facility] Hep B, Adol or Pedi 2003-08-26 Completed Unive rsity of Dosage 00:00:00 [facility] MMR 2003-08-26 Completed [facility] of 00:00:00 [facility] Polio (IPV/OPV) 2003-08-26 Completed [facility] 00:00:00 [facility] Varicella 2003-08-26 Completed [facility] of (varivax)(chicken 00:00:00 [facility] edical pox) Branch DTaP, Unspecified 2003-08-26 Completed Univers ity of Formulation 00:00:00 [facility] Pneumococcal 7 2003-08-26 Completed [facility] of Conjugate, PCV7 00:00:00 [place] [facility] (Prevnar7) Branch IPV 2003-08-26 Completed [facility] 00:00:00 [facility] DTAP 2003-08-26 Completed [facility] 00:00:00 [facility] Hep B, Adol or Pedi 2003-08-26 Completed Unive rsity of Dosage 00:00:00 [facility] MMR 2003-08-26 Completed [facility] 00:00:00 [facility] Polio (IPV/OPV) 2003-08-26 Completed [facility] 00:00:00 [facility] Varicella 2003-08-26 Completed [facility] (varivax)(chicken 00:00:00 [place] [facility] pox) Branch DTaP, Unspecified 2003-08-26 Completed [facility] it[facility] Formulation 00:00:00 [facility] Pneumococcal 7 2003-08-26 Completed [facility] of Conjugate, PCV7 00:00:00 [place] [facility] (Prevnar7) Branch IPV 2003-08-26 Completed [facility] 00:00:00 [facility] DTAP 2003-08-26 Completed [facility] 00:00:00 [facility] Hep B, Adol or Pedi 2003-08-26 Completed Unive rsity of Dosage 00:00:00 [facility] MMR 2003-08-26 Completed [facility] 00:00:00 [facility] Polio (IPV/OPV) 2003-08-26 Completed [facility] 00:00:00 [facility] Varicella 2003-08-26 Completed [facility] (varivax)(chicken 00:00:00 [place] [facility] pox) Branch DTaP, Unspecified 2003-08-26 Completed [facility] Formulation 00:00:00 [facility] Pneumococcal 7 2003-08-26 Completed [facility] Conjugate, PCV7 00:00:00 [place] [facility] (Prevnar7) Branch IPV 2003-08-26 Completed [facility] 00:00:00 [facility] Hep B, Adol or Pedi 1998-03-17 Completed Unive rsity of Dosage 00:00:00 [facility] HIB 3 Dose Schedule 1998-03-17 Completed Unive rsity of 00:00:00 [facility] Polio (IPV/OPV) 1998-03-17 Completed [facility] 00:00:00 [facility] Hep B, Adol or Pedi 1998-03-17 Completed [facility]ive rsity of Dosage 00:00:00 [facility] HIB 3 Dose Schedule 1998-03-17 Completed Unive rsity of 00:00:00 [facility] Polio (IPV/OPV) 1998-03-17 Completed [facility] 00:00:00 [facility] Hep B, Adol or Pedi 1998-03-17 Completed Unive rsity of Dosage 00:00:00 [facility] HIB 3 Dose Schedule 1998-03-17 Completed Unive rsity of 00:00:00 [facility] Polio (IPV/OPV) 1998-03-17 Completed [facility] 00:00:00 [facility] Hep B, Adol or Pedi 1998-03-17 Completed Unive rsity of Dosage 00:00:00 [facility] HIB 3 Dose Schedule 1998-03-17 Completed Unive rsity of 00:00:00 [facility] Polio (IPV/OPV) 1998-03-17 Completed [facility] 00:00:00 [facility] Hep B, Adol or Pedi 1998-03-17 Completed Unive rsity of Dosage 00:00:00 [facility] HIB 3 Dose Schedule 1998-03-17 Completed Unive rsity of 00:00:00 [facility] Polio (IPV/OPV) 1998-03-17 Completed [facility] 00:00:00 [facility] Hep B, Adol or Pedi 1998-03-17 Completed [facility] Dosage 00:00:00 [facility] [facility] 3 Dose Schedule 1998-03-17 Completed [facility] 00:00:00 [facility] Polio (IPV/OPV) 1998-03-17 Completed [facility] 00:00:00 [facility] Hep B, Adol or Pedi 1998-03-17 Completed [facility] of Dosage 00:00:00 [facility] HIB 3 Dose Schedule 1998-03-17 Completed [facility] of 00:00:00 [facility] Polio (IPV/OPV) 1998-03-17 Completed [facility] 00:00:00 [facility] Hep B, Adol or Pedi 1998-03-17 Completed [facility] of Dosage 00:00:00 [facility] HIB 3 Dose Schedule 1998-03-17 Completed [facility] of 00:00:00 [facility] Polio (IPV/OPV) 1998-03-17 Completed [facility] 00:00:00 [facility] DTaP, Unspecified 1998-03-17 Completed Univers ity of Formulation 00:00:00 [facility] Haemophilus 1998-03-17 Completed University of influenzae type b 00:00:00 [facility] edical vaccine, conjugate Branch unspecified formulation HIB 4 Dose Schedule 1998-03-17 Completed [facility]ive rsity of 00:00:00 [facility] IPV 1998-03-17 Completed University of 00:00:00 [facility] Hep B, Adol or Pedi 1998-03-17 Completed [facility] of Dosage 00:00:00 [facility] HIB 3 Dose Schedule 1998-03-17 Completed [facility] rs[facility] of 00:00:00 [facility] Polio (IPV/OPV) 1998-03-17 Completed [facility] 00:00:00 [facility] DTaP, Unspecified 1998-03-17 Completed [facility] ity of Formulation 00:00:00 [facility] Haemophilus 1998-03-17 Completed [facility] of influenzae type b 00:00:00 [place] [facility] vaccine, conjugate Branch unspecified formulation HIB 4 Dose Schedule 1998-03-17 Completed [facility] of 00:00:00 [facility] IPV 1998-03-17 Completed [facility] of 00:00:00 [facility] Hep B, Adol or Pedi 1998-03-17 Completed [facility] of Dosage 00:00:00 [facility] HIB 3 Dose Schedule 1998-03-17 Completed [facility] of 00:00:00 [facility] Polio (IPV/OPV) 1998-03-17 Completed [facility] 00:00:00 [facility] DTaP, Unspecified 1998-03-17 Completed [facility] ity of Formulation 00:00:00 [facility] Haemophilus 1998-03-17 Completed [facility] of influenzae type b 00:00:00 [place] [facility] vaccine, conjugate Branch unspecified formulation HIB 4 Dose Schedule 1998-03-17 Completed [facility] 00:00:00 [facility] IPV 1998-03-17 Completed [facility] of 00:00:00 [facility] Hep B, Adol or Pedi 1998-03-17 Completed [facility] of Dosage 00:00:00 [facility] HIB 3 Dose Schedule 1998-03-17 Completed [facility] of 00:00:00 [facility] Polio (IPV/OPV) 1998-03-17 Completed [facility] 00:00:00 [facility] DTaP, Unspecified 1998-03-17 Completed [facility] ity of Formulation 00:00:00 [facility] Haemophilus 1998-03-17 Completed [facility] of influenzae type b 00:00:00 [place] [facility] vaccine, conjugate Branch unspecified formulation HIB 4 Dose Schedule 1998-03-17 Completed [facility] of 00:00:00 [facility] IPV 1998-03-17 Completed [facility] of 00:00:00 [facility] Hep B, Adol or Pedi 1998-03-17 Completed [facility] of Dosage 00:00:00 [facility] HIB 3 Dose Schedule 1998-03-17 Completed [facility] of 00:00:00 [facility] Polio (IPV/OPV) 1998-03-17 Completed [facility] 00:00:00 [facility] DTaP, Unspecified 1998-03-17 Completed [facility] ity of Formulation 00:00:00 [facility] Haemophilus 1998-03-17 Completed [facility] of influenzae type b 00:00:00 [place] [facility] vaccine, conjugate Branch unspecified formulation HIB 4 Dose Schedule 1998-03-17 Completed [facility] 00:00:00 [facility] IPV 1998-03-17 Completed [facility] of 00:00:00 [facility] Hep B, Adol or Pedi 1998-03-17 Completed [facility] of Dosage 00:00:00 [facility] HIB 3 Dose Schedule 1998-03-17 Completed [facility] of 00:00:00 [facility] Polio (IPV/OPV) 1998-03-17 Completed [facility] 00:00:00 [facility] DTaP, Unspecified 1998-03-17 Completed [facility] ity of Formulation 00:00:00 [facility] Haemophilus 1998-03-17 Completed [facility] of influenzae type b 00:00:00 [place] [facility] vaccine, conjugate Branch unspecified formulation HIB 4 Dose Schedule 1998-03-17 Completed [facility] 00:00:00 [facility] IPV 1998-03-17 Completed [facility] of 00:00:00 [facility] Hep B, Adol or Pedi 1998-03-17 Completed [facility] of Dosage 00:00:00 [facility] HIB 3 Dose Schedule 1998-03-17 Completed [facility] of 00:00:00 [facility] Polio (IPV/OPV) 1998-03-17 Completed [facility] 00:00:00 [facility] DTaP, Unspecified 1998-03-17 Completed [facility] ity of Formulation 00:00:00 [facility] Haemophilus 1998-03-17 Completed [facility] of influenzae type b 00:00:00 [place] [facility] vaccine, conjugate Branch unspecified formulation HIB 4 Dose Schedule 1998-03-17 Completed [facility] of 00:00:00 [facility] IPV 1998-03-17 Completed [facility] of 00:00:00 [facility] Hep B, Adol or Pedi 1998-03-17 Completed [facility] of Dosage 00:00:00 [facility] HIB 3 Dose Schedule 1998-03-17 Completed [facility] of 00:00:00 [facility] Polio (IPV/OPV) 1998-03-17 Completed [facility] 00:00:00 [facility] DTaP, Unspecified 1998-03-17 Completed [facility] ity of Formulation 00:00:00 [facility] Haemophilus 1998-03-17 Completed University of influenzae type b 00:00:00 [facility] edical vaccine, conjugate Branch unspecified formulation HIB 4 Dose Schedule 1998-03-17 Completed [facility] rs[facility] of 00:00:00 [facility] IPV 1998-03-17 Completed University of 00:00:00 [facility] Hep B, Adol or Pedi 1998-03-17 Completed [facility] of Dosage 00:00:00 [facility] HIB 3 Dose Schedule 1998-03-17 Completed [facility] of 00:00:00 [facility] Polio (IPV/OPV) 1998-03-17 Completed [facility] 00:00:00 [facility] DTaP, Unspecified 1998-03-17 Completed [facility] ity of Formulation 00:00:00 [facility] Haemophilus 1998-03-17 Completed [facility] of influenzae type b 00:00:00 [facility] edical vaccine, conjugate Branch unspecified formulation HIB 4 Dose Schedule 1998-03-17 Completed [facility] rs[facility] of 00:00:00 [facility] IPV 1998-03-17 Completed University of 00:00:00 [facility] Hep B, Adol or Pedi 1998-03-17 Completed [facility] rs[facility] of Dosage 00:00:00 [facility] HIB 3 Dose Schedule 1998-03-17 Completed [facility] of 00:00:00 [facility] Polio (IPV/OPV) 1998-03-17 Completed [facility] 00:00:00 [facility] DTaP, Unspecified 1998-03-17 Completed [facility] ity of Formulation 00:00:00 [facility] Haemophilus 1998-03-17 Completed University of influenzae type b 00:00:00 [facility] edical vaccine, conjugate Branch unspecified formulation HIB 4 Dose Schedule 1998-03-17 Completed [facility] rs[facility] of 00:00:00 [facility] IPV 1998-03-17 Completed University of 00:00:00 [facility] Hep B, Adol or Pedi 1998-03-17 Completed [facility]ive rsity of Dosage 00:00:00 [facility] HIB 3 Dose Schedule 1998-03-17 Completed [facility] rs[facility] of 00:00:00 [facility] Polio (IPV/OPV) 1998-03-17 Completed [facility] 00:00:00 [facility] DTaP, Unspecified 1998-03-17 Completed [facility] ity of Formulation 00:00:00 [facility] Haemophilus 1998-03-17 Completed [facility] of influenzae type b 00:00:00 [facility] edical vaccine, conjugate Branch unspecified formulation HIB 4 Dose Schedule 1998-03-17 Completed [facility] rs[facility] of 00:00:00 [facility] IPV 1998-03-17 Completed University of 00:00:00 [facility] Hep B, Adol or Pedi 1998-03-17 Completed [facility] of Dosage 00:00:00 [facility] HIB 3 Dose Schedule 1998-03-17 Completed [facility] of 00:00:00 [facility] Polio (IPV/OPV) 1998-03-17 Completed [facility] 00:00:00 [facility] DTaP, Unspecified 1998-03-17 Completed [facility] ity of Formulation 00:00:00 [facility] Haemophilus 1998-03-17 Completed [facility] of influenzae type b 00:00:00 [facility] edical vaccine, conjugate Branch unspecified formulation HIB 4 Dose Schedule 1998-03-17 Completed [facility] rs[facility] of 00:00:00 [facility] IPV 1998-03-17 Completed University of 00:00:00 [facility] Hep B, Adol or Pedi 1998-03-17 Completed [facility] rs[facility] of Dosage 00:00:00 [facility] HIB 3 Dose Schedule 1998-03-17 Completed [facility] rs[facility] of 00:00:00 [facility] Polio (IPV/OPV) 1998-03-17 Completed [facility] 00:00:00 [facility] DTaP, Unspecified 1998-03-17 Completed [facility] ity of Formulation 00:00:00 [facility] Haemophilus 1998-03-17 Completed University of influenzae type b 00:00:00 [facility] edical vaccine, conjugate Branch unspecified formulation HIB 4 Dose Schedule 1998-03-17 Completed [facility] rs[facility] of 00:00:00 [facility] IPV 1998-03-17 Completed University of 00:00:00 [facility] Hep B, Adol or Pedi 1998-03-17 Completed [facility] rs[facility] of Dosage 00:00:00 [facility] HIB 3 Dose Schedule 1998-03-17 Completed [facility] of 00:00:00 [facility] Polio (IPV/OPV) 1998-03-17 Completed [facility] 00:00:00 [facility] DTaP, Unspecified 1998-03-17 Completed [facility] ity of Formulation 00:00:00 [facility] Haemophilus 1998-03-17 Completed [facility] of influenzae type b 00:00:00 [facility] edical vaccine, conjugate Branch unspecified formulation HIB 4 Dose Schedule 1998-03-17 Completed [facility]ive rsity of 00:00:00 [facility] IPV 1998-03-17 Completed University of 00:00:00 [facility] Hep B, Adol or Pedi 1998-03-17 Completed [facility]ive rs[facility] of Dosage 00:00:00 [facility] HIB 3 Dose Schedule 1998-03-17 Completed [facility] of 00:00:00 [facility] Polio (IPV/OPV) 1998-03-17 Completed [facility] 00:00:00 [facility] DTaP, Unspecified 1998-03-17 Completed [facility] ity of Formulation 00:00:00 [facility] Haemophilus 1998-03-17 Completed [facility] of influenzae type b 00:00:00 [facility] edical vaccine, conjugate Branch unspecified formulation HIB 4 Dose Schedule 1998-03-17 Completed [facility] of 00:00:00 [facility] IPV 1998-03-17 Completed University of 00:00:00 [facility] Hep B, Adol or Pedi 1998-03-17 Completed [facility] of Dosage 00:00:00 [facility] HIB 3 Dose Schedule 1998-03-17 Completed [facility] rs[facility] of 00:00:00 [facility] Polio (IPV/OPV) 1998-03-17 Completed [facility] 00:00:00 [facility] DTaP, Unspecified 1998-03-17 Completed [facility] ity of Formulation 00:00:00 [facility] Haemophilus 1998-03-17 Completed [facility] of influenzae type b 00:00:00 [place] [facility] vaccine, conjugate Branch unspecified formulation HIB 4 Dose Schedule 1998-03-17 Completed [facility] of 00:00:00 [facility] IPV 1998-03-17 Completed [facility] of 00:00:00 [facility] Hep B, Adol or Pedi 1998-03-17 Completed [facility] of Dosage 00:00:00 [facility] HIB 3 Dose Schedule 1998-03-17 Completed [facility] of 00:00:00 [facility] Polio (IPV/OPV) 1998-03-17 Completed [facility] 00:00:00 [facility] DTaP, Unspecified 1998-03-17 Completed [facility] ity of Formulation 00:00:00 [facility] Haemophilus 1998-03-17 Completed [facility] of influenzae type b 00:00:00 [facility] edical vaccine, conjugate Branch unspecified formulation HIB 4 Dose Schedule 1998-03-17 Completed [facility] rs[facility] of 00:00:00 [facility] IPV 1998-03-17 Completed [facility] of 00:00:00 [facility] Hep B, Adol or Pedi 1998-03-17 Completed [facility] rs[facility] of Dosage 00:00:00 [facility] HIB 3 Dose Schedule 1998-03-17 Completed [facility] of 00:00:00 [facility] Polio (IPV/OPV) 1998-03-17 Completed [facility] 00:00:00 [facility] DTaP, Unspecified 1998-03-17 Completed [facility] ity of Formulation 00:00:00 [facility] Haemophilus 1998-03-17 Completed [facility] of influenzae type b 00:00:00 [place] [facility] vaccine, conjugate Branch unspecified formulation HIB 4 Dose Schedule 1998-03-17 Completed [facility] rs[facility] of 00:00:00 [facility] IPV 1998-03-17 Completed University of 00:00:00 [facility] Hep B, Adol or Pedi 1998-03-17 Completed [facility]ive rsity of Dosage 00:00:00 [facility] HIB 3 Dose Schedule 1998-03-17 Completed [facility] rsity of 00:00:00 [facility] Polio (IPV/OPV) 1998-03-17 Completed [facility] 00:00:00 [facility] DTaP, Unspecified 1998-03-17 Completed Univers ity of Formulation 00:00:00 [facility] Haemophilus 1998-03-17 Completed [facility] of influenzae type b 00:00:00 [place] [facility] vaccine, conjugate Branch unspecified formulation HIB 4 Dose Schedule 1998-03-17 Completed [facility] of 00:00:00 [facility] IPV 1998-03-17 Completed [facility] of 00:00:00 [facility] Hep B, Adol or Pedi 1998-03-17 Completed [facility] of Dosage 00:00:00 [facility] HIB 3 Dose Schedule 1998-03-17 Completed [facility] of 00:00:00 [facility] Polio (IPV/OPV) 1998-03-17 Completed [facility] 00:00:00 [facility] DTaP, Unspecified 1998-03-17 Completed [facility] ity of Formulation 00:00:00 [facility] Haemophilus 1998-03-17 Completed [facility] of influenzae type b 00:00:00 [facility] edical vaccine, conjugate Branch unspecified formulation HIB 4 Dose Schedule 1998-03-17 Completed [facility] rs[facility] of 00:00:00 [facility] IPV 1998-03-17 Completed University of 00:00:00 [facility] Hep B, Adol or Pedi 1998-03-17 Completed [facility] rs[facility] of Dosage 00:00:00 [facility] HIB 3 Dose Schedule 1998-03-17 Completed [facility] rsity of 00:00:00 [facility] Polio (IPV/OPV) 1998-03-17 Completed [facility] of 00:00:00 [facility] DTaP, Unspecified 1998-03-17 Completed [facility] ity of Formulation 00:00:00 [facility] Haemophilus 1998-03-17 Completed University of influenzae type b 00:00:00 [facility] edical vaccine, conjugate Branch unspecified formulation HIB 4 Dose Schedule 1998-03-17 Completed [facility]ive rsity of 00:00:00 [facility] IPV 1998-03-17 Completed University of 00:00:00 [facility] Hep B, Adol or Pedi 1998-03-17 Completed [facility]ive rsity of Dosage 00:00:00 [facility] HIB 3 Dose Schedule 1998-03-17 Completed [facility] rs[facility] of 00:00:00 [facility] Polio (IPV/OPV) 1998-03-17 Completed [facility] of 00:00:00 [facility] DTaP, Unspecified 1998-03-17 Completed Univers ity of Formulation 00:00:00 [facility] Haemophilus 1998-03-17 Completed [facility] of influenzae type b 00:00:00 [place] [facility] vaccine, conjugate Branch unspecified formulation HIB 4 Dose Schedule 1998-03-17 Completed [facility] rs[facility] of 00:00:00 [facility] IPV 1998-03-17 Completed University of 00:00:00 [facility] Hep B, Adol or Pedi 1998-03-17 Completed [facility]ive rs[facility] of Dosage 00:00:00 [facility] HIB 3 Dose Schedule 1998-03-17 Completed [facility] rs[facility] of 00:00:00 [facility] Polio (IPV/OPV) 1998-03-17 Completed [facility] 00:00:00 [facility] DTaP, Unspecified 1998-03-17 Completed [facility] ity of Formulation 00:00:00 [facility] Haemophilus 1998-03-17 Completed [facility] of influenzae type b 00:00:00 [place] [facility] vaccine, conjugate Branch unspecified formulation HIB 4 Dose Schedule 1998-03-17 Completed [facility] rs[facility] of 00:00:00 [facility] IPV 1998-03-17 Completed [facility] of 00:00:00 [facility] Hep B, Adol or Pedi 1998-03-17 Completed [facility]ive rsity of Dosage 00:00:00 [facility] HIB 3 Dose Schedule 1998-03-17 Completed [facility] rs[facility] of 00:00:00 [facility] Polio (IPV/OPV) 1998-03-17 Completed [facility] 00:00:00 [facility] DTaP, Unspecified 1998-03-17 Completed [facility] ity of Formulation 00:00:00 [facility] Haemophilus 1998-03-17 Completed [facility] of influenzae type b 00:00:00 [place] [facility] vaccine, conjugate Branch unspecified formulation HIB 4 Dose Schedule 1998-03-17 Completed [facility] of 00:00:00 [facility] IPV 1998-03-17 Completed [facility] of 00:00:00 [facility] Hep B, Adol or Pedi 1998-03-17 Completed [facility]ive [facility]ity of Dosage 00:00:00 [facility] HIB 3 Dose Schedule 1998-03-17 Completed [facility] rsity of 00:00:00 [facility] Polio (IPV/OPV) 1998-03-17 Completed [facility] 00:00:00 [facility] DTaP, Unspecified 1998-03-17 Completed [facility] ity of Formulation 00:00:00 [facility] Haemophilus 1998-03-17 Completed [facility] of influenzae type b 00:00:00 [facility] edical vaccine, conjugate Branch unspecified formulation HIB 4 Dose Schedule 1998-03-17 Completed [facility]ive rsity of 00:00:00 [facility] IPV 1998-03-17 Completed University of 00:00:00 [facility] DTAP 1998-02-25 Completed University of 00:00:00 [facility] DTAP 1998-02-25 Completed University of 00:00:00 [facility] DTAP 1998-02-25 Completed University of 00:00:00 [facility] DTAP 1998-02-25 Completed University of 00:00:00 [facility] DTAP 1998-02-25 Completed University of 00:00:00 [facility] DTAP 1998-02-25 Completed University of 00:00:00 [facility] DTAP 1998-02-25 Completed University of 00:00:00 [facility] DTAP 1998-02-25 Completed University of 00:00:00 [facility] DTAP 1998-02-25 Completed University of 00:00:00 [facility] DTAP 1998-02-25 Completed University of 00:00:00 [facility] DTAP 1998-02-25 Completed University of 00:00:00 [facility] DTAP 1998-02-25 Completed University of 00:00:00 [facility] DTAP 1998-02-25 Completed University of 00:00:00 [facility] DTAP 1998-02-25 Completed University of 00:00:00 [facility] DTAP 1998-02-25 Completed University of 00:00:00 [facility] DTAP 1998-02-25 Completed University of 00:00:00 [facility] DTAP 1998-02-25 Completed University of 00:00:00 [facility] DTAP 1998-02-25 Completed University of 00:00:00 [facility] DTAP 1998-02-25 Completed University of 00:00:00 [facility] DTAP 1998-02-25 Completed University of 00:00:00 [facility] DTAP 1998-02-25 Completed University of 00:00:00 [facility] DTAP 1998-02-25 Completed University of 00:00:00 [facility] DTAP 1998-02-25 Completed University of 00:00:00 [facility] DTAP 1998-02-25 Completed University of 00:00:00 [facility] DTAP 1998-02-25 Completed University of 00:00:00 [facility] DTAP 1998-02-25 Completed University of 00:00:00 [facility] DTAP 1998-02-25 Completed [facility] of 00:00:00 [facility] DTAP 1998-02-25 Completed [facility] of 00:00:00 [facility] DTAP 1998-02-25 Completed University of 00:00:00 [facility] DTAP 1998-02-25 Completed University of 00:00:00 [facility] DTAP 1998-02-25 Completed University of 00:00:00 [facility] DTAP 1998-02-25 Completed University of 00:00:00 [facility] Vital Signs Vital Name Observation Time Observation Value Comments Source Systolic blood 2023-01-17 18:42:00 122 mm[Hg] Univer [facility]ity of pressure [facility] Diastolic blood 2023-01-17 18:42:00 78 mm[Hg] Unive rsity of pressure [facility] Heart rate 2023-01-17 18:42:00 65 /min [facility] Body temperature 2023-01-17 18:42:00 [facility] 2023-01-17 18:42:00 18 /min [facility] Oxygen saturation in 2023-01-17 18:42:00 98 /min [facility] Arterial blood by [facility] Pulse oximetry Branch Body height 2023-01-15 14:00:00 157.5 cm [facility] Body weight 2023-01-15 14:00:00 93.849 kg [facility] BMI 2023-01-15 14:00:00 37.84 kg/m2 [facility] Systolic blood 2023-01-10 21:15:00 118 mm[Hg] Univer [facility]ity of pressure [facility] Diastolic blood 2023-01-10 21:15:00 79 mm[Hg] Unive rsity of pressure [facility] Heart rate 2023-01-10 21:15:00 79 /min [facility] Body temperature 2023-01-10 21:15:00 35.61 [facility] Respiratory rate 2023-01-10 21:15:00 18 /min [facility] Body height 2023-01-10 21:15:00 157.5 cm [facility] Body weight 2023-01-10 21:15:00 95.89 kg [facility] BMI 2023-01-10 21:15:00 38.67 kg/m2 [facility] Systolic blood 2022-12-29 20:23:00 108 mm[Hg] [facility] pressure [facility] Diastolic blood 2022-12-29 20:23:00 80 mm[Hg] [facility] of pressure [facility] Heart rate 2022-12-29 20:23:00 87 /min [facility] Body temperature 2022-12-29 20:23:00 36.56 [facility] Respiratory rate 2022-12-29 20:23:00 18 /min [facility] Body height 2022-12-29 20:23:00 154.9 cm [facility] Body weight 2022-12-29 20:23:00 93.169 kg [facility] BMI 2022-12-29 20:23:00 38.81 kg/m2 [facility] Systolic blood 2022-12-26 17:23:00 117 mm[Hg] [facility] of pressure [facility] Diastolic blood 2022-12-26 17:23:00 71 mm[Hg] [facility] of pressure [facility] Heart rate 2022-12-26 17:23:00 86 /min [facility] Body temperature 2022-12-26 17:23:00 35.94 [facility] [place] [facility] Respiratory rate 2022-12-26 17:23:00 18 /min [facility] Body height 2022-12-26 17:23:00 154.9 cm [facility] Body weight 2022-12-26 17:23:00 92.398 kg [facility] BMI 2022-12-26 17:23:00 38.49 kg/m2 [facility] Systolic blood 2022-12-21 20:51:00 113 mm[Hg] [facility] [place] [facility] Diastolic blood 2022-12-21 20:51:00 72 mm[Hg] [facility] [place] [facility] Heart rate 2022-12-21 20:51:00 88 /min [facility] Body temperature 2022-12-21 20:51:00 35.61 Linda [facility] Body height 2022-12-21 20:51:00 157.5 cm [facility] Body weight 2022-12-21 20:51:00 92.625 kg [facility] BMI 2022-12-21 20:51:00 37.35 kg/m2 [facility] Systolic blood 2022-12-14 17:08:00 111 mm[Hg] [facility] Diastolic blood 2022-12-14 17:08:00 65 mm[Hg] [facility] Heart rate 2022-12-14 17:08:00 102 /min [facility] Body temperature 2022-12-14 17:08:00 36.56 Linda [facility] Respiratory rate 2022-12-14 17:08:00 20 /min [facility] Body height 2022-12-14 17:08:00 157.5 cm [facility] Body weight 2022-12-14 17:08:00 92.806 kg [facility] BMI 2022-12-14 17:08:00 37.42 kg/m2 [facility] Systolic blood 2022-11-07 14:52:00 108 mm[Hg] [facility] Diastolic blood 2022-11-07 14:52:00 69 mm[Hg] [facility] Heart rate 2022-11-07 14:52:00 84 /min [facility] Body temperature 2022-11-07 14:52:00 36.39 Linda [facility] Respiratory rate 2022-11-07 14:52:00 16 /min [facility] Body height 2022-11-07 14:52:00 157.5 cm [facility] Body weight 2022-11-07 14:52:00 90.266 kg [facility] [place] [facility] BMI 2022-11-07 14:52:00 36.40 kg/m2 [facility] Systolic blood 2022-09-23 14:23:00 111 mm[Hg] [facility] Diastolic blood 2022-09-23 14:23:00 63 mm[Hg] [facility] Heart rate 2022-09-23 14:23:00 77 /min [facility] Body temperature 2022-09-23 14:23:00 36 Linda [facility] Respiratory rate 2022-09-23 14:23:00 18 /min [facility] Body height 2022-09-23 14:23:00 157.5 cm [facility] Body weight 2022-09-23 14:23:00 85.531 kg [facility] BMI 2022-09-23 14:23:00 34.49 kg/m2 [facility] Systolic blood 2022-08-04 14:39:00 114 mm[Hg] [facility] [place] [facility] Diastolic blood 2022-08-04 14:39:00 74 mm[Hg] [facility] Heart rate 2022-08-04 14:39:00 84 /min [facility] [place] [facility] Body temperature 2022-08-04 14:39:00 36.28 Linda [facility] Respiratory rate 2022-08-04 14:39:00 18 /min [facility] Body height 2022-08-04 14:39:00 157.5 cm [facility] [place] [facility] Body weight 2022-08-04 14:39:00 81.733 kg [facility] [place] [facility] BMI 2022-08-04 14:39:00 32.96 kg/m2 [facility] Systolic blood 2022-07-15 13:18:00 109 mm[Hg] [facility] [place] [facility] Diastolic blood 2022-07-15 13:18:00 83 mm[Hg] Unive rsity of pressure [facility] Heart rate 2022-07-15 13:18:00 90 /min Universi [facility] Body temperature 2022-07-15 13:18:00 36.44 Linda [facility] Respiratory rate 2022-07-15 13:18:00 18 /min [facility] Body height 2022-07-15 13:18:00 157.5 cm [facility] [place] [facility] [place] Body weight 2022-07-15 13:18:00 80.457 kg Universi [facility] of [facility] BMI 2022-07-15 13:18:00 32.44 kg/m2 [facility] Systolic blood 2022-06-30 13:02:00 128 mm[Hg] Univer sity of pressure [facility] Diastolic blood 2022-06-30 13:02:00 77 mm[Hg] Unive rsity of pressure [facility] Heart rate 2022-06-30 13:02:00 78 /min Universi [facility] Body temperature 2022-06-30 13:02:00 36.44 Linda [facility] Respiratory rate 2022-06-30 13:02:00 20 /min Univ [facility] Body height 2022-06-30 13:02:00 157.5 cm [facility]i [facility] Body weight 2022-06-30 13:02:00 80.4 kg [facility] BMI 2022-06-30 13:02:00 32.42 kg/m2 [facility] Procedures Procedure Date / Time Performed Performing Clinician Sourc e EPIDURAL BLOOD PATCH 2023-01-17 16:33:00 Yessi Branch [facility] POCT GLUCOSE 2023-01-17 13:36:00 Lisa Asif [facility] (AUTOMATED) [facility] CBC WITHOUT DIFF 2023-01-17 07:40:00 [facility] POCT GLUCOSE 2023-01-16 17:49:00 Lisa Asif [facility] (AUTOMATED) [facility] POCT GLUCOSE 2023-01-16 12:02:00 Lisa Asif [facility] (AUTOMATED) [facility] VENOUS CORD GAS 2023-01-16 05:49:00 Sri [facility] CENTRAL NEURAXIAL 2023-01-16 01:51:00 Tommie Perez [facility] BLOCK [facility] POCT GLUCOSE 2023-01-15 23:39:00 Lisa Asif [facility] (AUTOMATED) [facility] POCT GLUCOSE 2023-01-15 19:10:00 Lisa Asif [facility] (AUTOMATED) [facility] HB ABO GROUPING 2023-01-15 16:43:00 Sri [facility] RHO (D) IMMUNE 2023-01-15 16:43:00 [facility] CBC WITH DIFF 2023-01-15 16:37:00 Sri [facility] HEPATITIS B SURFACE 2023-01-15 16:37:00 Sri [facility] ANTIGEN [facility] EXTRA TUBE SST 2023-01-15 16:37:00 Lisa Asif [facility] HIV 1/2 AG-AB WITH 2023-01-15 16:37:00 Sri [facility] REFLEX [facility] SYPHILIS IGG/IGM 2023-01-15 16:37:00 Sri [facility] NON-STRESS TEST 2023-01-10 22:12:15 Akinbrynpe Rogelio C U [facility] POCT GLUCOSE 2023-01-10 21:56:00 Akinbrynpe Rogelio C [facility] (AUTOMATED) [facility] POCT URINALYSIS 2023-01-10 21:17:00 Akinsipe, Rogelio C [facility] NON-STRESS TEST 2022-12-29 21:11:02 Isidro Holden [facility] POCT URINALYSIS 2022-12-29 20:24:00 Akinsipe, Rogelio C [facility] NON-STRESS TEST 2022-12-26 18:59:39 Akinbrynpe Rogelio C U [facility] CBC WITH DIFF 2022-12-26 18:05:00 Akinsipe Rogelio C Univers [facility] POCT GLUCOSE 2022-12-26 18:00:00 Akinsipe, Rogelio C Univers [facility] (AUTOMATED) [facility] POCT URINALYSIS 2022-12-26 17:25:00 Akinsipe, Rogelio C Univers [facility] DIABETES TESTING 2022-12-26 06:01:00 Doctor Unassigned, Chey [facility] REPORTS Name [facility] NON-STRESS TEST 2022-12-21 21:58:30 Akinsipe Rogelio C U [facility] POCT URINALYSIS 2022-12-21 20:53:00 Akinsipe, Rogelio C Univers [facility] POCT GLUCOSE(AGE 2022-12-14 17:59:00 Akinsipe Rogelio C [facility] >30DAYS) [facility] Branch POCT GLUCOSE 2022-12-14 17:40:00 Akinsipe Rogelio C [facility] (AUTOMATED) [facility] POCT URINALYSIS 2022-12-14 00:00:00 Akinsipe Rogelio C [facility] URINE CULTURE 2022-11-07 16:02:00 Sonia Jensen [facility] POCT URINALYSIS 2022-11-07 00:00:00 Akinsipe Rogelio C [facility] POCT GLUCOSE(AGE 2022-09-23 15:11:00 Akinsipe Rogelio C [facility] >30DAYS) [facility] Branch POCT GLUCOSE 2022-09-23 15:04:00 Akinsipe Rogelio C [facility] (AUTOMATED) [facility] POCT URINALYSIS 2022-09-23 14:23:00 Akinsipe, Rogelio C Univers [facility] POCT URINALYSIS 2022-08-04 14:46:00 Akinsipe Rogelio C Univers [facility] POCT URINALYSIS 2022-07-15 13:20:00 Akinsipe Rogelio C Univers [facility] DIABETES TESTING 2022-07-15 05:01:00 Doctor Unassigned, No Unive [facility] REPORTS Name Medical Branch POCT URINALYSIS 2022-06-30 13:04:00 Rogelio Sen [facility] Encounters Start End Encounter Admission Attending Care Care Encounter Source Date/Time Date/Time Type Type Clinicians Facility Department ID 2023-01-15 2023-01-17 Inpatient P EVERARDO LISA [facility] STACIA 1 [id number] Univers 07:32:00 14:50:00 LISA ASIF itmartha [facility] 2023-01-15 2023-01-17 [facility] MG Asif 1.2.840.114 [id number] Univers 07:32:00 14:50:00 Encounter Lisa OVALLES 350.1.13.10 ity of [facility] 4.2.7.2.686 [place] as [id number] [facility] gonzalo 134 Branch 2023-01-17 2023-01-17 Anesthesia Yessi Branch 1.2 .840.114 [id number] Univers 09:47:00 10:38:00 Event Eric Allred 350.1.13.10 ity of HOSPITAL 4.2.7.2.686 [place] as [id number] Medi gonzalo 140 Branch 2023-01-16 2023-01-16 Anesthesia MG Perez 1.2.840.114 1 [id number] Univers 20:02:43 20:02:43 Event Tommie OVALLES 350.1.13.10 it y of [facility] 4.2.7.2.686 [place] as [id number] [facility] gonzalo 132 Branch 2023-01-15 2023-01-16 Anesthesia Tommie Perez 1.2.840 .114 [id number] Univers 18:58:00 00:30:00 Event Elyssa Harper 350.1.1 3.10 ity of [facility] 4.2.7.2.686 [place] as [id number] [facility] 132 Branch 2023-01-13 2023-01-[address] [facility] [id number] Univers 08:00:00 08:00:00 ROGELIO wilson [facility] 2023-01-10 2023-01-10 Outpatient R MCKINLEY, [facility] [id number] Univers 15:15:00 15:58:49 ROGELIO zee o ricarda [facility] 2023-01-10 2023-01-10 Routine Mckinley, [facility] 1.2.987.671 [id number] Univers 15:15:00 15:58:49 Rogelio C POWER PRESS SUPERVISOR 350.1.13.10 ity of Visit REGIONAL 4.2.7.2.686 [place] as MATERNAL [id number] [facility] ical & CHILD [address] [place] [address] 2023-01-06 2023-01-06 Outpatient R MCKINLEY, [facility] [id number] Univers 13:15:00 13:15:00 ROGELIO franciscomartha o ricarda [facility] 2023-01-03 2023-01-[address] [facility] [id number] Univers 09:30:00 09:30:00 CHERIE [facility] 2022-12-29 2022-12-[address] [facility] [id number] Univers 13:45:00 15:01:21 ISIDRO [facility] 2022-12-29 2022-12-29 Routine Risk, Wsd-Qbbfd-Ml/High [facility] 1. 2.840.114 [id number] Univers 13:45:00 15:01:21 Isidro Holden POWER PRESS SUPERVISOR 350.1.13.10 ity of Visit REGIONAL 4.2.7.2.686 [place] as MATERNAL [id number] [facility] & CHILD [address] [place] [address] 2022-12-27 2022-12-27 Telephone [facility] 1.2.840.114 10 [id number] Univers 00:00:00 00:00:00 Rogelio C POWER PRESS SUPERVISOR 350.1.13.10 ity of REGIONAL 4.2.7.2.686 [place] as MATERNAL [id number] [facility] & CHILD [address] [place] [address] 2022-12-27 2022-12-27 [facility] 1.2.840.114 [id number] Univers 00:00:00 00:00:00 Rogelio C POWER PRESS SUPERVISOR 350.1.13.10 ity of REGIONAL 4.2.7.2.686 [place] as MATERNAL [id number] [facility] ical & CHILD [address] [place] [address] 2022-12-26 2022-12-26 Routine Akinsipe, [facility] 1.2.407.530 [id number] Univers 11:00:00 12:09:15 Rogelio C POWER PRESS SUPERVISOR 350.1.13.10 ity of Visit [facility] 4.2.7.2.686 [place] MATERNAL [id number] [facility] ical & CHILD [address] [place] [address] 2022-12-26 2022-12-26 Audit Manager [facility] 1.2 .840.114 [id number] Univers 10:15:00 10:45:00 Visit [place] Dionicio Wilson POWER PRESS SUPERVISOR 350.1.13.10 ity of [facility] 4.2.7.2.686 [place] as MATERNAL [id number] [facility] ical & CHILD 369 [facility] 2022-12-26 2022-12-26 [facility] [id number] Univers 10:15:00 10:44:41 DIONICIO zee [facility] 2022-12-26 2022-12-26 Orders Doctor MG 1.2.840.114 [id number] Univers 00:00:00 00:00:00 Only Unassigned, CHARLETTE 350.1.13.10 ity of [place] [facility] 4.2.7.2.686 [place] as [id number] [address] 2022-12-23 2022-12-23 Outpatient R AKINSIPE, [facility] [id number] Univers 13:00:00 13:00:00 ROGELIO ity o f [facility] 2022-12-21 2022-12-21 Outpatient R AKINSIPE, [facility] [id number] Univers 14:45:00 15:59:05 ORGELIO ity o f [facility] 2022-12-21 2022-12-21 Routine Akinsipe, [facility] 1.2.597.911 [id number] Univers 14:45:00 15:59:05 Rogelio C POWER PRESS SUPERVISOR 350.1.13.10 ity of Visit REGIONAL 4.2.7.2.686 [place] as MATERNAL [id number] [facility] & CHILD [address] [place] [address] 2022-12-14 2022-12-[address] [facility] [id number] Univers 11:00:00 11:44:27 ROGELIO singhy o f [facility] 2022-12-14 2022-12-14 Routine [facility] 1.2.397.367 [id number] Univers 11:00:00 11:44:27 Rogelio C POWER PRESS SUPERVISOR 350.1.13.10 ity of Visit REGIONAL 4.2.7.2.686 [place] as MATERNAL [id number] [facility] & CHILD [address] [place] [address] 2022-12-14 2022-12-14 [facility] 1.2.021.196 [id number] Univers 00:00:00 00:00:00 Sonia POWER PRESS SUPERVISOR 350.1.13.10 it y of REGIONAL 4.2.7.2.686 [place] as MATERNAL [id number] [facility] ical & CHILD 125 [facility] 2022-12-05 2022-12-05 Audit Manager [facility]tras[facility], [facility] 1.2 .840.114 [id number] Univers 10:30:00 11:00:00 Visit Dionicio Doll POWER PRESS SUPERVISOR 350.1.13.10 ity of REGIONAL 4.2.7.2.686 [place] as MATERNAL [id number] [facility] & CHILD 369 [facility] 2022-12-05 2022-12-[address] [facility] [id number] Univers 10:30:00 10:30:00 DIONICIO zee [facility] 2022-12-01 2022-12-[address] [facility] [id number] Univers 09:45:00 09:45:00 ROGELIO zee o f [facility] 2022-11-22 2022-11-[address] [facility] [id number] Univers 08:00:00 08:00:00 CHERIE [facility] 2022-11-10 2022-11-[address] [facility] [id number] Univers 11:00:00 11:00:00 ity [facility] 2022-11-09 2022-11-09 Audit Manager Ultrasound, [facility] 1.2 .840.114 [id number] Univers 13:00:00 13:30:00 Visit Logan Bustamante POWER PRESS SUPERVISOR 350.1.13.10 ity of REGIONAL 4.2.7.2.686 [place] as MATERNAL [id number] [facility] & CHILD [address] [place] [address] 2022-11-09 2022-11-[address] [facility] [id number] Univers 13:00:00 13:00:00 LOGAN [facility] 2022-11-07 2022-11-[address] [facility] [id number] Univers 08:30:00 09:35:21 CHERIE [facility] 2022-11-07 2022-11-07 Routine Provider, Michelle [facility] 1 .2.840.114 [id number] Univers 08:30:00 09:35:21 Cherie Quiñonez POWER PRESS SUPERVISOR 350.1.13. 10 ity of Visit REGIONAL 4.2.7.2.686 [place] as MATERNAL [id number] [facility] & CHILD [address] [place] [address] 2022-11-04 2022-11-[address] [facility] [id number] Univers 08:00:00 08:00:00 ROGELIO ity o f [facility] 2022-10-24 2022-10-[address] [facility] [id number] Univers 10:30:00 10:30:00 ity [facility] 2022-10-11 2022-10-[address] [facility] [id number] Univers 10:45:00 10:45:00 ROGELIO ity o f [facility] 2022-09-23 2022-09-[address] [facility] [id number] Univers 09:30:00 10:05:44 ROGELIO itmartha o f [facility] 2022-09-23 2022-09-23 [facility] 1.2.659.593 [id number] Univers 09:30:00 10:05:44 Rogelio Armen POWER PRESS SUPERVISOR 350.1.13.10 ity of Visit REGIONAL 4.2.7.2.686 [place] as MATERNAL [id number] [facility] ical & CHILD 107 [facility] 2022-09-19 2022-09-19 Outpatient R AKINSIPE, [facility] [id number] Univers 15:30:00 15:30:00 ROGELIO zee o ricarda [facility] 2022-09-08 2022-09-08 Outpatient R AKINSI, [facility] [id number] Univers 09:00:00 09:00:00 ROGELIO saadia o [facility] 2022-09-05 2022-09-05 Audit Manager Ultrasound, [facility] 1.2 .840.114 [id number] Univers 08:45:00 10:00:00 Visit Nathan Meredith Sonali POWER PRESS SUPERVISOR 350.1. 13.10 ity of REGIONAL 4.2.7.2.686 [place] as MATERNAL [id number] [facility] & CHILD 369 [facility] 2022-09-05 2022-09-[address] [facility] [id number] Univers 08:45:00 08:45:00 MARY it y of SSONALI [facility] 2022-09-05 2022-09-05 Abstract Nile [facility] 1.2.004.109 [id number] Univers 00:00:00 00:00:00 Vero POWER PRESS SUPERVISOR 350.1.13.10 it y of REGIONAL 4.2.7.2.686 [place] as MATERNAL [id number] [facility] ical & CHILD 124 [facility] 2022-08-18 2022-08-18 Outpatient R AKINSIPE, [facility] [id number] Univers 08:45:00 08:45:00 ROGELIO zee o [facility] 2022-08-04 2022-08-04 [facility] [id number] Univers 09:30:00 10:17:18 ROGELIO ity o [facility] 2022-08-04 2022-08-04 Routine Akinsipe, [facility] 1.2.715.830 [id number] Univers 09:30:00 10:17:18 Rogelio C POWER PRESS SUPERVISOR 350.1.13.10 ity of Visit [facility] 4.2.7.2.686 [place] as MATERNAL [id number] [facility] ical & CHILD [address] [place] [address] 2022-07-15 2022-07-15 Outpatient R JESUSPE, [facility] [id number] Univers 08:15:00 08:49:27 ROGELIO ity o [facility] 2022-07-15 2022-07-15 [facility] 1.2.286.313 [id number] Univers 08:15:00 08:49:27 Rogelio C POWER PRESS SUPERVISOR 350.1.13.10 ity of Visit [facility] 4.2.7.2.686 [place] as MATERNAL [id number] [facility] ical & CHILD [address] [place] [address] 2022-07-15 2022-07-15 Orders Doctor MG 1.2.840.114 [id number] Univers 00:00:00 00:00:00 Only Unassigned, CHARLETTE 350.1.13.10 ity of [place] [facility] 4.2.7.2.686 [place] as [id number] [address] 2022-07-14 2022-07-14 Outpatient R STEFAN, [facility] [id number] Univers 14:15:00 14:15:00 PRASAD ity [facility] 2022-07-13 2022-07-13 Outpatient R AKINSIPE, [facility] [id number] Univers 10:45:00 10:45:00 ROGELIO ity o [facility] 2022-06-30 2022-06-30 Outpatient R AKINSIPE, [facility] [id number] Univers 08:00:00 08:35:28 ROGELIO ity o [facility] 2022-06-30 2022-06-30 [facility] 1.2.485.020 [id number] Univers 08:00:00 08:35:28 Rogelio C POWER PRESS SUPERVISOR 350.1.13.10 ity of Visit REGIONAL 4.2.7.2.686 [place] as MATERNAL [id number] Med ical & CHILD 107 [facility] 2022-06-30 2022-06-30 Orders Doctor MG 1.2.840.114 [id number] Univers 00:00:00 00:00:00 Only Unassigned, CHARLETTE 350.1.13.10 ity of [place] [facility] 4.2.7.2.686 [place] as [id number] [facility] [address] [place] 2022-06-28 2022-06-28 Abstract Mary [facility] 1.2.840.114 [id number] Univers 00:00:00 00:00:00 Sydney POWER PRESS SUPERVISOR 350.1.13.10 it y of REGIONAL 4.2.7.2.686 [place] as MATERNAL [id number] [facility] ical & CHILD 110 [facility] 2022-06-27 2022-06-27 Audit Manager 3, [facility] Us Room UNIVERSIT 1 .2.840.114 [id number] Univers 13:30:00 14:00:00 Visit Lisa Asif [facility] 350.1.13.10 ity of CLINICS 4[place]7.2.[place] [id number] [facility] [address] [place] 2022-06-27 2022-06-27 [address]ISA AS[address] [facility] [id number] Univers 13:30:00 13:41:54 LISA ASIF [facility] 2022-06-20 2022-06-[address] [facility] [id number] Univers 09:45:00 09:45:00 saadia [facility] 2022-06-16 2022-06-16 Outpatient R SYDNEY HERNANDEZ [facility] [id number] Univers 14:30:00 15:46:57 SYDNEY HERNANDEZ [facility] 2022-06-16 2022-06-16 Routine Provider, Michelle [facility] 1 .2.840.114 [id number] Univers 14:30:00 15:46:57 Sydney Hernandez POWER PRESS SUPERVISOR 350.1.13.10 ity of Visit REGIONAL 4.2.7.2.686 [place] as MATERNAL [id number] [facility] & [address] 2022-06-13 2022-06-[address] [facility] [id number] Univers 15:30:00 17:16:08 DIONICIO zee [facility] 2022-06-13 2022-06-13 Telemedici Faculty, [facility] 1.2.840.114 [id number] Univers 15:30:00 16:00:00 ne Visit Dionicio Doll POWER PRESS SUPERVISOR 350.1.13.10 ity of REGIONAL 4.2.7.2.686 [place] as MATERNAL [id number] [facility] & [address] 2022-06-09 2022-06-[address] [facility] [id number] Univers 08:00:00 08:47:57 ROGELIO ity o f [facility] 2022-06-09 2022-06-09 [facility] 1.2.364.877 [id number] Univers 08:00:00 08:47:57 Rogelio Ayers POWER PRESS SUPERVISOR 350.1.13.10 ity of Visit REGIONAL 4.2.7.2.686 [place] as MATERNAL [id number] [address] 2022-06-09 2022-06-09 [facility] [id number] Univers 08:00:00 08:00:00 ROGELIO ity o f [facility] 2022-06-09 2022-06-09 Orders Doctor MG 1.2.840.114 [id number] Univers 00:00:00 00:00:00 Only Unassigned, CHARLETTE 350.1.13.10 ity of [place] [facility] 4.2.7.2.686 [place] as [id number] [address] 2022-06-03 2022-06-[address] [facility] [id number] Univers 08:15:00 08:15:00 ROGELIO zee o f [facility] 2022-05-31 2022-05-31 [facility] 1.2.840.114 [id number] Univers 00:00:00 00:00:00 Rogelio Ayers POWER PRESS SUPERVISOR 350.1.13.10 ity of [facility] 4.2.7.2.686 [place] as MATERNAL [phone] [facility] & CHILD [address] [place] [address] 2022-05-25 2022-05-25 [facility] [id number] Univers 14:15:00 15:56:44 ROGELIO ity o [facility] 2022-05-25 2022-05-25 Initial [facility] 1.2.015.961 [id number] Univers 14:15:00 15:56:44 Rogelio Ayers POWER PRESS SUPERVISOR 350.1.13.10 ity of Visit [facility] 4.2.7.2.686 [place] as MATERNAL [id number] [facility] & [address] 2022-05-25 2022-05-25 Outpatient R MCKINLEY, [facility] [id number] Univers 13:45:00 14:49:41 ROGELIO zee o [facility] 2022-05-25 2022-05-25 Orders Doctor MG 1.2.840.114 [id number] Univers 00:00:00 00:00:00 Only Unassigned, CHARLETTE 350.1.13.10 ity of [place] [facility] 4.2.7.2.686 [place] as [id number] [facility] [address] 2022-03-03 2022-03-03 Telephone Winston FAYE 1.2.840.114 [id number] Univers 00:00:00 00:00:00 , Nika FELIPE 350.1.13.10 ity of [place]2.[place] [phone] [facility] [address] 2021-05-31 2021-05-31 [facility] [id number] Univers 13:30:00 13:30:00 ROGELIO singhy o [facility] 2021-05-27 2021-05-[address] [facility] [id number] Univers 15:00:00 15:00:[facility] 2021-03-04 2021-03-04 Nurse Visit, Ang-Rmchp Nurse [facility] 1.2 .840.114 [id number] Univers 14:51:27 15:28:00 Visit Rogelio Sen POWER PRESS SUPERVISOR 350.1.13. 10 [facility] 4.2.7.2.686 [place] as MATERNAL [phone] Med ical & CHILD [address] [place] [address] 2021-03-04 2021-03-[address] [facility] [id number] Univers 15:00:00 15:00:00 [facility] 2020-12-10 2020-12-10 Office Mckinley [facility] 1.2.334.873 [id number] Univers 13:54:25 15:31:43 Visit Rogelio Ayers POWER PRESS SUPERVISOR 350.1.13.10 [facility] 4.2.7.2.686 [place] MATERNAL [phone] Med ical & CHILD [address] [place] [address] 2020-12-10 2020-12-10 Office Mckinley [facility] 1.2.659.404 [id number] 13:54:25 15:31:43 Visit Rogelio Ayers POWER PRESS SUPERVISOR 350.1.13.10 [facility] 4.2.7.2.686 MATERNAL [phone] & CHILD [address] [place] [address] 2020-12-10 2020-12-[address] [facility] [id number] Univers 14:15:00 14:15:00 ROGELIO saadia o [facility] 2020-12-10 2020-12-[address] [facility] [id number] Univers 14:15:00 14:15:00 ROGELIO saadia o [facility] 2020-09-16 2020-09-[address] [facility] [id number] Univers 14:15:00 14:15:00 ROSHUNDA itmartha o [facility] 2020-09-16 2020-09-16 Office Bryce [facility] 1.2.840.114 [id number] Univers 13:51:07 14:06:07 Visit Prisca Hsieh POWER PRESS SUPERVISOR 350.1.13.10 ity of [facility] 4.2.7.2.686 [place] MATERNAL [id number] [facility] ical & CHILD [address] [place] [address] 2020-09-16 2020-09-16 Orders Doctor MG 1.2.840.114 [id number] Univers 00:00:00 00:00:00 Only Unassigned, CHARLETTE 350.1.13.10 ity of [place] [facility] 42.7.2.686 [place] as [id number] [facility] [address] [place] 2019-12-24 2019-12-24 Nurse Visit, [facility] Nurse [facility] 1.2 .840.114 [id number] Univers 15:04:20 15:34:13 Visit Rogelio Sen POWER PRESS SUPERVISOR 350.1.13. 10 ity of [facility] 4.2.7.2.686 [place] MATERNAL [phone] [facility] ical & CHILD [address] [place] [address] 2019-08-04 2019-08-06 Hospital MG Jean 1.2.840.114 [id number] Univers 19:15:00 14:44:00 Encounter Divine OVALLES 350.1.13.10 ity of [address]686 [place] as [id number] [facility] [address] [place] 2019-08-01 2019-08-01 Routine [facility] 1.2.174.764 [id number] Univers 10:39:14 11:38:43 Rogelio C POWER PRESS SUPERVISOR 350.1.13.10 ity of Visit [facility] 4.2.7.2.686 [place] as MATERNAL [id number] [facility] & CHILD [address] [place] [address] 2019-07-30 2019-07-30 Routine [facility] 1.2.311.122 [id number] Univers 12:55:15 14:06:16 Rogelio C POWER PRESS SUPERVISOR 350.1.13.10 ity of Visit [facility] 4.2.7.2.686 [place] as MATERNAL [id number] [facility] ical & CHILD [address] [place] [address] 2019-07-25 2019-07-25 Routine [facility], [facility] 1.2.460.042 [id number] Univers 13:44:20 15:02:34 Rogelio C POWER PRESS SUPERVISOR 350.1.13.10 ity of Visit [facility] 4.2.7.2.686 [place] as MATERNAL [id number] [facility] ical & CHILD [address] [place] [address] 2019-07-22 2019-07-22 Routine [facility], [facility] 1.2.939.917 [id number] Univers 10:51:52 11:32:28 Rogelio C POWER PRESS SUPERVISOR 350.1.13.10 ity of Visit [facility] 4.2.7.2.686 [place] as MATERNAL [id number] [facility] ical & CHILD [address] [place] [address] 2019-07-22 2019-07-22 Orders Doctor MG 1.2.840.114 [id number] Univers 00:00:00 00:00:00 Only Unassigned, CHARLETTE 350.1.13.10 ity of [place] [facility] 4.2.7.2.686 [place] as [id number] [facility] [address] [place] 2019-07-19 2019-07-19 Abstract [facility] 1.2.840.114 [id number] Univers 00:00:00 00:00:00 Rogelio C POWER PRESS SUPERVISOR 350.1.13.10 ity of [facility] 4.2.7.2.686 [place] as MATERNAL [phone] [facility] & CHILD [address] [place] [address] 2019-07-17 2019-07-17 Audit Manager 3, [facility] Us Room [facility] 1 .2.840.114 [id number] Univers 15:35:40 16:05:40 Visit RosalbaDelilah [facility] 350.1.1 3.10 ity of [place] oCrmier [facility] 4.2.7.2.686 [place] [id number] [facility] [address] 2019-07-16 2019-07-16 Telephone [facility], [facility] 1.2.840.114 [id number] Univers 00:00:00 00:00:00 Rogelio C POWER PRESS SUPERVISOR 350.1.13.10 ity of [facility] 4.2.7.2.686 [place] as MATERNAL [phone] [facility] & CHILD [address] [place] [address] 2019-07-15 2019-07-15 Routine Akinsipe, [facility] 1.2.226.597 [id number] Univers 13:25:49 14:29:24 Rogelio C POWER PRESS SUPERVISOR 350.1.13.10 ity of Visit [facility] 4.2.7.2.686 [place] as MATERNAL [phone] [facility] & CHILD [address] [place] [address] 2019-07-04 2019-07-04 Nurse MG Jorgensen 1.2.627.633 [id number] Univers 00:00:00 00:00:00 Triage Logan CHARLETTE 350.1.13.10 it y of HOSPITAL 4.2.7.2.686 [place] as [id number] [address] 2019-07-01 2019-07-01 Routine Akinpe, [facility] 1.2.333.041 [id number] Univers 12:21:42 12:57:48 Rogelio C POWER PRESS SUPERVISOR 350.1.13.10 ity of Visit [facility] 4.2.7.2.686 [place] as MATERNAL [id number] [facility] & CHILD [address] [place] [address] 2019-07-01 2019-07-01 Orders Doctor MG 1.2.840.114 [id number] Univers 00:00:00 00:00:00 Only Unassigned, CHARLETTE 350.1.13.10 ity of [place] [facility] 4.2.7.2.686 [place] as [phone] [address] Results Test Description Test Time Test Comments Results Result Comments Source POCT GLUCOSE (AUTOMATED) 2023-01-17 13:41:52 Test Item Value Reference Range Interpretation Comme nts POCT GLU (test code = 9305801018) 92 mg/dL 70-110 Lab Interpretation (test code = 90244-1) [facility]16 17:53:26 Test Item Value Reference Range Interpretation Comments POCT GLU (test code = 0224889958) 121 mg/dL 70-110 H Lab Interpretation (test code = Abnormal 77918-6) [facility] - SYPHILIS [id number] 15:47:35 Test Item Value Reference Range Interpretation Comments Syphilis IgG/IgM (test Non-reactive Non-reactive code = 42180-3) YOBANY (test code = YOBANY) Non-reactive - No serologic evidence of T. pallidum infection. Cannot exclude incubating or early syphilis. Submit a second specimen in 2-4 weeks if syphilis is clinically suspected. Equivocal - Further testing to follow. Reactive - Further testing to follow. Lab Interpretation (test Normal code = 37824-9) [facility]2023-01-16 12:03:52 Test Item Value Reference Range Interpretation Comments POCT GLU (test code = 9161109392) 130 mg/dL 70-110 H Lab Interpretation (test code = Abnormal 99577-8) [facility] (D) IMMUNE [id number] 10:56:10 Test Item Value Reference Range Interpretation Comments RHIG CANDIDATE? No- see comment Patient i s not a (test code = candidate for R hIg- 5055) Patient is Rh Positive.Perfor med at [facility] Laboratory Services - [facility] Blood [address] [place] [address] 367[address]Xwtd Free: [phone] A No. [id number] [facility] AreaARTERIAL CORD [id number] 06:08:29 Test Item Value Reference Range Interpretation Comments BASE EXCESS, CORD -4.2 mEq/L QUES (test code = 8930686455) AC PH, CORD (BEAKER) 7.30 7.18-7.38 (test code = 7738417127) PC02, CORD (test code 46 See_Comment [Auto mated message] The = 0863950301) system which g enerated this result transmit trudy reference range : 32 - 66 mmHg. The refer ence range was not used to interpret this result as normal/abnormal . PO2, CORD (test code 17 See_Comment [Autom ated message] The = 7124575564) system which g enerated this result transmit trudy reference range : 10 - 30 mmHg. The refer ence range was not used to interpret this result as normal/abnormal . BICARBONATE, CORD 22 See_Comment [Automate d message] The (test code = system which ge nerated this 7500832260) result transmit trudy reference range : 17 - 27 mEq/L. The refe rence range was not used to interpret this result as normal/abnormal . [facility]ORD [id number] 06:06:03 Test Item Value Reference Range Interpretation Comments VENOUS BASE EXCESS, -1.0 mEq/L CORD (test code = 6060792703) VENOUS PH, CORD (test 7.41 7.25-7.45 code = 0059591391) VENOUS PC02, CORD 37 See_Comment [Automate d message] The (test code = system which ge nerated 8323130022) this result tra nsmitted reference range : 27 - 49 mmHg. The refer ence range was not used to interpret this result as normal/abnormal . VENOUS PO2, CORD (test 29 See_Comment [Aut omated message] The code = 5004119619) system wh ich generated this result tra nsmitted reference range : 17 - 41 mmHg. The refer ence range was not used to interpret this result as normal/abnormal . VENOUS BICARBONATE, 23 See_Comment QUES [Au tomated message] CORD (test code = The system which generated 6848625556) this result tra nsmitted reference range : 12 - 29 mEq/L. The refe rence range was not used to interpret this result as normal/abnormal . [facility] GLUCOSE (AUTOMATED)2023-01-15 23:51:11 Test Item Value Reference Range Interpretation Comments POCT GLU (test code = 3437980225) 87 mg/dL 70-110 Lab Interpretation (test code = Normal 35956-5) [facility] GLUCOSE (AUTOMATED)2023-01-15 19:11:47 Test Item Value Reference Range Interpretation Comments POCT GLU (test code = 2683408805) 121 mg/dL 70-110 H Lab Interpretation (test code = Abnormal 43077-6) [facility] AreaHIV [facility]/2 AG-AB WITH [id number] 18:30:11 Test Item Value Reference Range Interpretation Comments HIV 0.08 Negative Semi-quantitative (test code = 81509-2) YOBANY (test code = Non-reactive for HIV-1 YOBANY) antigen and HIV-1/HIV-2 antibodies. ?No laboratory evidence of HIV infection. ?Repeat in 2-4 weeks if acute HIV infection is suspected. [facility] AreaHepatitis B Surface [id number] 18:20:30 Test Item Value Reference Range Interpretation Comments HBsAg Semi-Quantitative (test code = 0.06 Negative 5195-3) [facility] AreaType and Screen - ONCE [id number] 17:22:16 Test Item Value Reference Range Interpretation Comments ABO & RH (test code O POSITIVE Performe d at [facility] = 20) Laboratory Serv [facility] Blood Bank3 [address] [facility] [address]Lxfq Free: [phone] A No. [id number] IAT (test code = Negative Performed a t [facility] 1185) Laboratory Serv [facility] Blood Bank3 [address] [facility] s [address]Jpgh Free: [phone] A No. [id number] [facility] AreaCBC with [id number] 16:59:29 Test Item Value Reference Range Interpretation Comments WBC (test code = 7.68 See_Comment [Automated 5944-2) message] The sy stem which generated this result transmitted reference range : 4.30 - 11.10 10*3/?L. The reference range was not used to interpret this result as normal/abnormal . RBC (test code = 4.79 See_Comment [Automated 779-8) message] The sy stem which generated this [...] RDW-SD (test code = 49.7 fL 39.0-49.9 97840-2) RDW-CV (test code = 18.5 % 12.0-15.5 H 788-0) PLT (test code = 253 See_Comment [Automated 917-3) message] The sy stem which generated this result transmitted reference range : 166 - 358 10*3/ ?L. The reference r gema was not used to interpret this result as normal/abnormal . MPV (test code = 9.7 fL 9.5-12.9 00502-3) NRBC/100 WBC (test 0.0 See_Comment [Automat ed code = 1928932878) message] The system which generated this result transmitted reference range : 0.0 - 10.0 /100 WBCs. The refer ence range was not u sed to interpret th is result as normal/abnormal . NRBC x10^3 (test code See_Comment [Auto mated = 9401785650) message] The s ystem which generated this result transmitted reference range : 10*3/?L. The reference range was not used to interpret this result as normal/abnormal . GRAN MAT (NEUT) % 54.6 % (test code = 770-8) IMM GRAN % (test code 0.30 % = 5213876101) LYMPH % (test code = 38.8 % 736-9) MONO % (test code = 5.6 % 5905-5) EOS % (test code = 0.3 % 713-8) BASO % (test code = 0.4 % 706-2) GRAN MAT x10^3(ANC) 4.20 10*3/uL 1.88-7.09 (test code = 8034983275) IMM GRAN x10^3 (test 0.00-0.06 code = 4160695297) LYMPH x10^3 (test code 2.98 10*3/uL 1.32-3.29 = 731-0) MONO x10^3 (test code 0.43 10*3/uL 0.33-0.92 = 742-7) EOS x10^3 (test code = 0.03-0.39 L 711-2) BASO x10^3 (test code 0.03 10*3/uL 0.01-0.07 = 704-7) Lab Interpretation Abnormal (test code = 23055-7) [facility] GLUCOSE (AUTOMATED)2023-01-10 21:59:03 Test Item Value Reference Range Interpretation Comments POCT GLU (test code = 9976279828) 97 mg/dL 70-110 Lab Interpretation (test code = Normal 48160-6) [facility] URINALYSIS W SPECIFIC [id number] 21:17:00 Test Item Value Reference Range Interpretation [...] U APPEAR (test code = 3267) . [facility] URINALYSIS W SPECIFIC [id number] 20:24:00 Test Item Value Reference Range Interpretation [...] POCT U APPEAR (test code = 3267) [facility] WITH [id number] 06:10:54 Test Item Value Reference Range Interpretation [...] RDW-SD (test code = 39.1 fL 39.0-49.9 54981-2) RDW-CV (test code = 14.3 % 12.0-15.5 788-0) PLT (test code = 243 See_Comment [Automated 777-3) message] The sy stem which generated this result transmitted reference range : 166 - 358 10*3/ ?L. The reference r gema was not used to interpret this result as normal/abnormal . MPV (test code = 10.6 fL 9.5-12.9 92827-4) NRBC/100 WBC (test 0.0 See_Comment [Automat ed code = 1901137381) message] The system which generated this result transmitted reference range : 0.0 - 10.0 /100 WBCs. The refer ence range was not u sed to interpret th is result as normal/abnormal . NRBC x10^3 (test code See_Comment [Auto mated = 6062286145) message] The s ystem which generated this result transmitted reference range : 10*3/?L. The reference range was not used to interpret this result as normal/abnormal . GRAN MAT (NEUT) % 61.1 % (test code = 770-8) IMM GRAN % (test code 0.40 % = 1577836746) LYMPH % (test code = 30.1 % 736-9) MONO % (test code = 7.3 % 5905-5) EOS % (test code = 0.8 % 713-8) BASO % (test code = 0.3 % 706-2) GRAN MAT x10^3(ANC) 7.03 10*3/uL 1.88-7.09 (test code = 7988485069) IMM GRAN x10^3 (test 0.05 10*3/uL 0.00-0.06 code = 9257672188) LYMPH x10^3 (test code 3.47 10*3/uL 1.32-3.29 H = 731-0) MONO x10^3 (test code 0.84 10*3/uL 0.33-0.92 = 742-7) EOS x10^3 (test code = 0.09 10*3/uL 0.03-0.39 711-2) BASO x10^3 (test code 0.04 10*3/uL 0.01-0.07 = 704-7) Lab Interpretation Abnormal (test code = 44615-3) [facility] GLUCOSE (AUTOMATED)2022-12-26 18:10:48 Test Item Value Reference Range Interpretation Comments POCT GLU (test code = 6912760689) 135 mg/dL 70-110 H Lab Interpretation (test code = Abnormal 17760-8) [facility] URINALYSIS W SPECIFIC [id number] 17:26:00 Test Item Value Reference Range Interpretation [...] U APPEAR (test code = 3267) . [facility] URINALYSIS W SPECIFIC [id number] 20:53:00 Test Item Value Reference Range Interpretation [...] POCT U APPEAR (test code = 3267) [facility] URINALYSIS W SPECIFIC [id number] 20:53:00 Test Item Value Reference Range Interpretation [...] POCT U APPEAR (test code = 3267) [facility] GLUCOSE (AUTOMATED)2022-12-14 19:05:33 Test Item Value Reference Range Interpretation Comments POCT GLU (test code = 6622468224) 143 mg/dL 70-110 H Lab Interpretation (test code = Abnormal 70612-5) [facility] GLUCOSE(AGE >30DAYS)2022-12-14 17:59:00 Test Item Value Reference Range Interpretation Comments POCT Glu (age>30days) (test code = 143 mg/dL 70-110 A 3342) Lab Interpretation (test code = Abnormal 40450-7) [facility] URINALYSIS W SPECIFIC [id number] 17:11:00 Test Item Value Reference Range Interpretation [...] U APPEAR (test code = 3267) . [facility] URINALYSIS W SPECIFIC [id number] 14:54:00 Test Item Value Reference Range Interpretation [...] U APPEAR (test code = 3267) . [facility] GLUCOSE(AGE >30DAYS)2022-09-23 15:11:00 Test Item Value Reference Range Interpretation Comments POCT Glu (age>30days) (test code = 90 mg/dL 70-110 3342) [facility] GLUCOSE (AUTOMATED)2022-09-23 15:08:07 Test Item Value Reference Range Interpretation Comments POCT GLU (test code = 4091798066) 90 mg/dL 70-110 Lab Interpretation (test code = Normal 98786-0) [facility] URINALYSIS W SPECIFIC [id number] 14:24:00 Test Item Value Reference Range Interpretation [...] U APPEAR (test code = 3267) . [facility] URINALYSIS W SPECIFIC [id number] 14:46:00 Test Item Value Reference Range Interpretation [...] U APPEAR (test code = 3267) . [facility] URINALYSIS W SPECIFIC [id number] 13:21:00 Test Item Value Reference Range Interpretation [...] U APPEAR (test code = 3267) . [facility] URINALYSIS W SPECIFIC [id number] 13:05:00 Test Item Value Reference Range Interpretation [...] U APPEAR (test code = 3267) .. [facility]
[2023-01-20 08:41] LABS: Absolute Lymphocytes (CBC) 1.1 K/uL (0.7-4.9); Hematocrit 31.1 % (36.0-45.0); Lymphocytes % 10.6 % (15.3-44.8); MPV 7.4 fL (7.6-11.3); RBC Red Blood Cell Count 4.14 M/uL (3.86-4.86)
[2023-01-20 08:55] LABS: Potassium 3.6 mmol/L (3.5-5.1)
[2023-01-20] MEDS ORDERED: NA CHLORIDE 0.9% 1,000 ML ONE (09:30)
--- NOTE | 2023-01-20 10:46 | EDPHYS ---
Physician Documentation [facility] Name: Enid Munguia Age: 27 yrs Sex: Female : 1995 Arrival Date: 01/20/2023 Time: 07:33 Bed 15 Private MD: ED Physician Abraham Short HPI: 01/20 08:23 This 27 yrs old Female presents to ER via Wheelchair with complaints of Vaginal kb Bleeding. 08:23 The patient presents with vaginal bleeding that is heavy, with clots. Onset: The kb symptoms/episode began/occurred this morning, at 06:30. Modifying factors: The symptoms are alleviated by nothing, the symptoms are aggravated by nothing. Associated signs and symptoms: Pertinent positives: vaginal bleeding. Severity of symptoms: At their worst the symptoms were moderate, in the emergency department the symptoms are unchanged. The patient has not experienced similar symptoms in the past. The patient has not recently seen a physician. 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 - Social history:: Smoking status: Patient denies any tobacco usage or history of. ROS: 08:14 Constitutional: Negative for fever, chills, and weight loss. kb 08:14 : Positive for vaginal bleeding. 08:14 Neuro: Positive for Lightheadedness. 08:14 All other systems are negative. Exam: 08:14 Constitutional: This is a well developed, well nourished patient who is awake, alert, kb and in no acute distress. Head/Face: Normocephalic, atraumatic. ENT: Moist Mucous membranes Cardiovascular: Regular rate and rhythm with a normal S1 and S2. No gallops, murmurs, or rubs. No pulse deficits. Respiratory: Respirations even and unlabored. No increased work of breathing. Talking in full sentences Skin: Warm, dry with normal turgor. Normal color. MS/ Extremity: Pulses equal, no cyanosis. Neurovascular intact. Full, normal range of motion. Neuro: Awake and alert, GCS 15, oriented to person, place, time, and situation. Moves all extremities. Normal gait. 08:14 Abdomen/GI: Inspection: abdomen appears normal, Bowel sounds: normal, Palpation: soft, in all quadrants, mild abdominal tenderness, in the suprapubic area. Vital Signs: 07:45 BP 128 / 89; Pulse 109; Resp 17; Temp 98.3; Pulse Ox 98% ; Weight 92.99 kg; Height 5 jl7 ft. 2 in. (157.48 cm); Pain 6/10; 08:30 BP 125 / 73 Supine; Pulse 71; Resp 16; Pulse Ox 99% on R/A; db 08:35 BP 129 / 85 Sitting; Pulse 78; Resp 18; Pulse Ox 98% on R/A; db 08:40 BP 126 / 86; Pulse 120; Resp 18; Pulse Ox 99% on R/A; db 09:30 BP 110 / 62; Pulse 82; Resp 16; Pulse Ox 99% on R/A; db 10:30 BP 108 / 60; Pulse 83; Resp 16; Pulse Ox 98% on R/A; db 07:45 Body Mass Index 37.49 (92.99 kg, 157.48 cm) jl7 MDM: 07:59 Patient medically screened. kb 08:13 Differential diagnosis: hemorrhage, Retained products of conception. Data carlos reviewed: vital signs, nurses notes. ED course: Patient is a 27-year-old female with a recent vaginal on January 15 who presents for heavier vaginal bleeding with clots that started at 630 this morning. Patient reports suprapubic cramping/pain. Also reports lightheadedness. Exam positive for tenderness to suprapubic area. Will obtain serum labs to check for anemia and transvaginal ultrasound to rule out retained products.. 10:41 Discussion of test interpretation with radiology: I had a discussion with radiology carlos regarding a test interpretation. Discussed with Dr Mckeon, no retained products seen. Counseling: I had a detailed discussion with the patient and/or guardian regarding: the historical points, exam findings, and any diagnostic results supporting the discharge/admit diagnosis, lab results, radiology results, the need for outpatient follow up, an OB/Gyne specialist, to return to the emergency department if symptoms worsen or persist or if there are any questions or concerns that arise at home. 12:14 ED course: Patient reports resolution of lightheadedness upon standing and ambulating kb after fluids. Alert and oriented x4. Nontoxic in appearance. Tolerating p.o. intake. No retained products seen on ultrasound. No indication for blood transfusion at this time. Patient educated to follow-up with OB. Verbal understanding received.. 01/20 08:08 Order name: CBC with Diff; Complete Time: 08:43 kb 01/20 08:08 Order name: Basic Metabolic Panel; Complete Time: 09:09 kb 01/20 08:08 Order name: IV Start; Complete Time: 08:40 kb 01/20 08:08 Order name: US Transvaginal Study (Probe); Complete Time: 10:48 kb 01/20 08:08 Order name: Orthostatics; Complete Time: 08:40 kb Administered Medications: 09:31 Drug: NS 0.9% 1000 ml Route: IV; Rate: 1000 ml; Site: right antecubital; db 10:40 Follow up: Response: No adverse reaction; IV Status: Completed infusion; IV Intake: db 1000ml Disposition Summary: 01/20/23 10:45 Discharge Ordered Location: Home kb Condition: Stable kb Diagnosis - Other specified abnormal uterine and vaginal bleeding - s/p vaginal delivery kb Followup: kb - With: Emergency Department - When: As needed - Reason: Worsening of condition Followup: kb - With: Private Physician - When: 2 - 3 days - Reason: Recheck today's complaints, Continuance of care, Re-evaluation by your physician Discharge Instructions: - Discharge Summary Sheet kb - Care After Vaginal Delivery kb Forms: - Medication Reconciliation Form kb - Thank You Letter kb - Antibiotic Education kb - Prescription Opioid Use kb - Work release form db Addendum: 01/22/2023 07:43 Co-signature as Attending Physician, Abraham Short MD I reviewed the patient's care r n provided by the Advanced Practice Provider and agree with the diagnosis and treatment plan. Signatures: Dispatcher [employer] EDCatrachita Krishnamurthy, WIRELINE OPERATOR-C WIRELINE OPERATOR-Ckb Abraham Short MD MD rn Leal, Jahala, RN RN jl7 Maria C Aleman RN RN db Corrections: (The following items were deleted from the chart) 01/20 07:49 07:49 Home Meds: None; jl7 jl7
--- NOTE | 2023-01-20 10:46 | ER ---
Nurse's Notes [facility] Name: Enid Munguia Age: 27 yrs Sex: Female : 1995 Arrival Date: 01/20/2023 Time: 07:33 Bed 15 Private MD: Diagnosis: Other specified abnormal uterine and vaginal bleeding-s/p vaginal delivery Presentation: 01/20 07:45 Chief complaint: Patient states: Recent vaginal 01/15/23 at [facility]. Woke jl7 this morning at 0630 with a tennis ball sized blood clot in pad, have had to change pad 5 times since 0630 this morning with multiple large clots. [place] dizzy on standing prior to arrival to ED. Seen here last night for OSEI post epidural, treated and discharged, OSEI has improved. Coronavirus screen: At this time, the client does not indicate any symptoms associated with coronavirus-19. Ebola Screen: No symptoms or risks identified at this time. Initial Sepsis Screen: Does the patient meet any 2 criteria? No. Patient's initial sepsis screen is negative. Does the patient have a suspected source of infection? No. Patient's initial sepsis screen is negative. Risk Assessment: Do you want to hurt yourself or someone else? Patient reports no desire to harm self or others. Onset of symptoms was January 20, 2023. 07:45 Method Of Arrival: Wheelchair jl7 07:45 Acuity: DERRELL 3 jl7 Triage Assessment: 07:49 General: Appears in no apparent distress. uncomfortable, Behavior is calm, cooperative, jl7 appropriate for age. Pain: Complains of pain in right lower quadrant and left lower quadrant Pain currently is 6 out of 10 on a pain scale. Quality of pain is described as crampy. Pain: Complains of pain in OSEI Pain currently is 4 out of 10 on a pain scale. Cardiovascular: Reports lightheadedness, Patient's skin is warm and dry. Rhythm is regular. Respiratory: Airway is patent Respiratory effort is even, unlabored, Respiratory pattern is regular, symmetrical. : Reports vaginal bleeding that is bright red, with clots, heavy flow. Derm: Skin is dry, Skin is pale, Skin temperature is warm. TRANSFORMATION MANAGER: 07:49 3, Full Term 3, Premature 0, 0, Living 3, LMP N/A - Recent jl7 08:23 3, 0, Living 3 kb Historical: - Allergies: 07:49 NKDA; jl7 - Home Meds: 07:49 Iron CR Oral [Active]; jl7 - PMHx: 07:49 Bipolar disorder; Ovarian cyst; jl7 - PSHx: 07:49 None; jl7 - Immunization history:: Client reports receiving the Mikey \T\ Mikey single-dose vaccine. - Social history:: Smoking status: Patient denies any tobacco usage or history of. Screenin:54 [facility] ED Fall Risk Assessment (Adult) History of falling in the last 3 months, db including since admission No falls in past 3 months (0 pts) Confusion or Disorientation No (0 pts) Intoxicated or Sedated No (0 pts) Impaired Gait No (0 pts) Mobility Assist Device Used No (0 pt) Altered Elimination No (0 pt) Score/Fall Risk Level 0 - 2 = Low Risk Oriented to surroundings, Maintained a safe environment. Abuse screen: Denies threats or abuse. Denies injuries from another. Nutritional screening: No deficits noted. Tuberculosis screening: No symptoms or risk factors identified. Assessment: 08:30 Reassessment: Patient appears in no apparent distress at this time. Patient and/or db family updated on plan of care and expected duration. Pain level reassessed. Patient is alert, oriented x 3, equal unlabored respirations, skin warm/dry/pink. patient states started with heavy vaginal bleeding today. Gave on Jan 15. General: Appears in no apparent distress. uncomfortable, Behavior is calm, cooperative. Pain: Complains of pain in abdomen and left lower quadrant and right lower quadrant. Neuro: Level of Consciousness is awake, alert, obeys commands, Oriented to person, place, time, situation, Speech is normal. 09:18 Reassessment: patient returned to room from ultrasound. Patient ambulatory to bathroom. db 10:36 Reassessment: Patient appears in no apparent distress at this time. Patient and/or db family updated on plan of care and expected duration. Pain level reassessed. Patient is alert, oriented x 3, equal unlabored respirations, skin warm/dry/pink. 10:46 Reassessment: Patient and/or family updated on plan of care and expected duration. Pain db level reassessed. Patient is alert, oriented x 3, equal unlabored respirations, skin warm/dry/pink. patient ambulatory to restroom and back to room with steady gate. Denies dizziness or lightheaded feeling Patient states feeling better. Patient states symptoms have improved. Vital Signs: 07:45 BP 128 / 89; Pulse 109; Resp 17; Temp 98.3; Pulse Ox 98% ; Weight 92.99 kg; Height 5 jl7 ft. 2 in. (157.48 cm); Pain 6/10; 08:30 BP 125 / 73 Supine; Pulse 71; Resp 16; Pulse Ox 99% on R/A; db 08:35 BP 129 / 85 Sitting; Pulse 78; Resp 18; Pulse Ox 98% on R/A; db 08:40 BP 126 / 86; Pulse 120; Resp 18; Pulse Ox 99% on R/A; db 09:30 BP 110 / 62; Pulse 82; Resp 16; Pulse Ox 99% on R/A; db 10:30 BP 108 / 60; Pulse 83; Resp 16; Pulse Ox 98% on R/A; db 07:45 Body Mass Index 37.49 (92.99 kg, 157.48 cm) jl7 ED Course: 07:33 Patient arrived in ED. rg4 07:49 Triage completed. jl7 07:49 Arm band placed on right wrist. Patient placed in waiting room, Patient notified of jl7 wait time. 07:58 Catrachita Munguia FNP-C is PHCP. kb 07:58 Abraham Short MD is Attending Physician. kb 08:20 Maria C Aleman, CASSIDY is Primary Nurse. db 08:30 Inserted saline lock: 20 gauge in right antecubital area, using aseptic technique. db Blood collected. 09:17 US Transvaginal Study (Probe) In Process Unspecified. EDMS 10:47 Patient has correct armband on for positive identification. Bed in low position. Call db light in reach. Side rails up X 1. Pulse ox on. NIBP on. Warm blanket given. 10:52 No provider procedures requiring assistance completed. IV discontinued, intact, db bleeding controlled, No redness/swelling at site. Administered Medications: 09:31 Drug: NS 0.9% 1000 ml Route: IV; Rate: 1000 ml; Site: right antecubital; db 10:40 Follow up: Response: No adverse reaction; IV Status: Completed infusion; IV Intake: db 1000ml Medication: 09:19 VIS not applicable for this client. db Intake: 10:40 IV: 1000ml; Total: 1000ml. db Outcome: 10:45 Discharge ordered by . carlos 10:52 Discharged to home ambulatory, with family. db 10:52 Condition: stable 10:52 Discharge instructions given to patient, Instructed on discharge instructions, follow up and referral plans. 11:03 Patient left the ED. db Signatures: Dispatcher [employer] EDMS Catrachita Munguia, ESTER-C ESTER-Xiomara Gama rg4 Son Jeffries, RN RN [id number] Maria C Aleman, RN RN db Corrections: (The following items were deleted from the chart) 07:49 07:49 Home Meds: None; merry sousa
--- NOTE | 2023-01-20 10:46 | RAD REPORT ---
EXAM DESCRIPTION: US - Transvaginal Study Probe - 01/20/2023 9:24 am CLINICAL HISTORY: r/o retained products bleeding COMPARISON: Pelvis dated 04/15/2018; Head Brain Wo Cont dated 01/20/2023 FINDINGS: The uterus is diffusely enlarged, with normal contour and echotexture. The uterus measures 14.2 centimeter in length. Mild hypervascularity is seen along the anterior myometrium near the fund us, probably related to involutional changes. The endometrial stripe measures 6 mm, normal. Linear echogenicities seen along the endometrial cavity near the fundus, may relate to foci of gas in the recent setting. Both ovaries are not visualized due to over shadowing bowel. No adnexal masses. No significant pelvic ascites. IMPRESSION: uterus, without evidence of retained products of conception. Nonvisualization of both ovaries due to over shadowing bowel.
[2023-01-20 11:31] VITALS: TEMP 98.3
[2023-01-20 11:37] VITALS: BP 108/60; O2SAT 98
== END 2023-01-20 11:03 | disposition home or self-care (01) ==
LOC: ER 07:30
DX: O72.1 Other immediate postpartum hemorrhage (principal)
CPT/HCPCS: 85025; 80048; 36415; 76830; 96360; 99284; J7030

== ENCOUNTER 2024-11-17 09:08 | Emergency (ER) | payer OTHER, SELFPAY ==
--- OUTSIDE RECORDS SUMMARY | 2024-11-17 09:20 | XMS REPORT | Continuity of Care Document ---
Author Name Unknown Address [address] [facility] [address] [place] [address] [facility] Address [address] [facility] 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 Role Phone ROGELIO SEN Primary Care Physician Unav ZACKARY Gusman Attending Clinician Unavailable ROGELIO SEN Attending Clinician Unavail able Mckinley Rogelio DENNIS Attending Clinician + MG ERICKSON Attending Clinician Unavailable Visit, [facility] Nurse Attending Clinician Unava ilable RADHA HARLEY Attending Clinician Unavailable RADHA HARLEY Attending Clinician Unavailable RADHA HARLEY Attending Clinician Unavailable Radha Harley MD Attending Clinician +[phone] Toi Aguilar MD Attending Clinician [phone] Komal Moya MD Attending Darlinia n Mookie Cormier MD Attending Clinician + [phone] MG ERICKSON Attending Clinician Unav CHERIE Sosa Attending Clinician UnavailIsaura Cooper NP Attending Clinician [phone] Pickhardt CNM, Cherie A Attending Clinician [phone] Risk, Vnk-Zelfn-Zf/High Attending Clinician Unav ailable Ultrasound, Ang-Mfm Attending Clinician UnavailISAURA Cooper Attending Clinician Unavail able ISAURA FELIPE Attending Clinician Unavail able SONALI DYE Attending Clinician Unav ailable Ronnie Harper MD, Sonali Attending Clinician + GIBBSALLEN Attending Clinician Unavailable GIBBS, ALLEN CAM Attending Clinician Unavailable Chapin GUZMAN, Allen Avila Attending Clinician [phone] NOHEMI AGUSTIN Attending Clinician Unav ailable NIKOLE, NOHEMI PARKINSON Attending Clinician Unav ailable Nikole GUZMAN, Nohemi Parkinson Attending Clinician + ISIDRO HOLDEN Attending Clinician Unavailable SALUD DESOUZA Attending Clinician Unavailable SALUD DESOUZA Attending Clinician Unavailable Risk, Ydw-Kvtpv-Cr/High Attending Clinician Unav ailable Isidro Aly Attending Clinician + [phone] Pickvika KNAPPM, Cherie A Attending Clinician [phone] Akinsipe WHRogelio DENNIS Attending Clinician + Ronnie Harper MD, Sonali Attending Clinician + Doctor Unassigned, [place] Attending Clinician U navailable LISA MCGEE Attending Clinician Unavailable LISA MCGEE Attending Clinician Unavailable Lisa Mcgee MD Attending Clinician + [phone] Jose Carlos GUZMAN, Yessi Attending Clinician +[phone] Chalino CARRANZA, Eric Ruggiero Attending Clinician +[phone] Chris GUZMAN, Tommie Attending Clinician +[phone] Meredith GUZMAN, Elyssa Attending Clinician +[phone] Dionicio Putnam MD Attending Clinician [phone] DIONICIO PUTNAM Attending Clinician Unavailable Mikey ESPINOZA, Sonia Attending Clinician [phone] LOGAN DAVIS Attending Clinician Unavailable LOGAN DAVIS Attending Clinician Unavailable Provider, [facility] Tem Attending Clinician Celina Vero Hernandez APN Attending Clinician +[phone] PRASAD AVILES Attending Clinician Unavailted Hernandez HR SHARED SERVICES CONSULTANT, Sydney Attending Clinician [phone], [facility] Attending Clinician UnavailSYDNEY Warren Attending Clinician Unavailabl e Faculty, [facility] Attending Clinician Unaryan Montero RN, Nika Stevenson Attending Clinician Unav ailable Visit, [facility] Nurse Attending Clinician UnaPRISCA Peterson Attending Clinician Unavailab guera Wu HR SHARED SERVICES CONSULTANT, Prisca Hsieh Attending Clinician [phone] Divine Jean MD Attending Clinician +[phone] Delilah Navarrete MD Attending Clinician + [phone] Mookie Cormier Attending Clinician +[phone] Logan Jorgensen RN Attending Clinician Unavailab RADHA Gabriel Admitting Clinician Unavailable Radha Harley MD Admitting Clinician +[phone] ALLEN GIBBS Admitting Clinician Unavailable Allen Gibbs MD Admitting Clinician +[phone] LISA MCGEE Admitting Clinician Unavailable Lisa Mcgee MD Admitting Clinician +[phone] Divine Jean MD Admitting Clinician +[phone] Payers Payer Name Policy Type Policy Number Effective Date Expirati on Date Source [facility] [id number] 2024 00:00:00 [employer] [id number] 2024 00:00:00 Problems Condition Name Condition Details Condition Category Status Onset Date Resolution Date Last Treatment Date Treating Clinician Comments Source delivery delivered delivery delivered Disease Active 2023-11 00:00: 00 [facility] Herpes simplex virus (HSV) infection of vagina Herpes simplex virus (HSV) infection of vagina Disease Active 04-16 00:00: 00 Overview: Formattin g of this note might be different from the original. 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 Not on meds [facility] History of depression History of depression Disease Active 12-06 00:00: 00 Overview: Formattin g of this note might be different from the original. Not on meds [facility] Obesity in Obesity in Disease Active 12-06 00:00: 00 [facility] Anemia of mother in , antepartum Anemia of mother in , antepartum Disease Active 3 00:00: 00 [facility] Decline flu vaccine Decline flu vaccine Disease Active 2015-11 0-06 00:00: 00 Overview: Formattin g of this note might be different from the original. Deferred, clinic out of stock [facility] Obesity in Obesity in Disease Active 06-22 00:00: 00 [facility] Obesity (BMI 30-39.9) Obesity (BMI 30-39.9) Disease Active 06-22 00:00: 00 [facility] Insufficie nt care in third trimester Insufficie nt care in third trimester Disease Resolve d 2023-11 1-15 00:00: 00 2024-11-14 00:00:00 2024-11-14 10:45:20 [facility] Non-compli ant patient, third trimester Non-compli ant patient, third trimester Disease Resolve d 2023-1 1-15 00:00: 00 2024-11-14 00:00:00 2024-11-14 10:45:23 [facility] 37 weeks gestation of 37 weeks gestation of Disease Resolve d 2023-1 1-25 00:00: 00 2024-10-23 00:00:00 2024-10-23 19:04:07 [facility] Nausea vomiting and diarrhea Nausea vomiting and diarrhea Disease Resolve d 2023-0 9-22 00:00: 00 2024-10-11 00:00:00 2024-10-11 12:42:54 [facility] related nausea, antepartum related nausea, antepartum Disease Resolve d 2023-0 4-18 00:00: 00 2024-10-11 00:00:00 2024-10-11 12:42:53 [facility] 28 weeks gestation of 28 weeks gestation of Disease Resolve d 2016-0 3-22 00:00: 00 2024-09-30 00:00:00 2024-09-30 08:17:14 [facility] Obesity (BMI 30-39.9) Obesity (BMI 30-39.9) Disease Resolve d 2018-0 1-10 00:00: 00 2024-03-14 00:00:00 2024-03-14 10:13:45 [facility] Depression affecting Depression affecting Disease Resolve d 2018-0 1-10 00:00: 00 2023-09-02 00:00:00 2023-09-02 19:42:34 Overview: Formattin g of this note might be different from the original. Not on meds [facility] Herpes infection in Herpes infection in Disease Resolve d 2018-0 1-10 00:00: 00 2023-09-02 00:00:00 2023-09-02 19:42:35 Overview: Formattin g of this note might be different from the original. No outbreak since 2017 [facility] Routine follow-up Routine follow-up Disease Resolve d 2022-0 3-13 00:00: 00 2023-08-30 00:00:00 2023-08-30 09:56:10 [facility] Anemia of mother in , antepartum Anemia of mother in , antepartum Disease Resolve d 2022-0 1-31 00:00: 00 2023-08-30 00:00:00 2023-08-30 09:56:09 [facility] Tetanus, diphtheria , and acellular pertussis (Tdap) vaccinatio n declined Tetanus, diphtheria , and acellular pertussis (Tdap) vaccinatio n declined Disease Resolve d 0 1-11 00:00: 00 2023-08-30 00:00:00 2023-08-30 09:56:06 [facility] 39 weeks gestation of 39 weeks gestation of Disease Resolve d 2022-0 2-19 00:00: 00 2023-02-06 00:00:00 2023-02-06 11:24:40 [facility] Encounter for induction of labor Encounter for induction of labor Disease Resolve d 0 2-19 00:00: 00 2023-02-06 00:00:00 2023-02-06 11:24:36 [facility] UTI in UTI in Disease Resolve d 7-14 00:00: 00 2023-02-06 00:00:00 2023-02-06 11:24:41 Overview: Formattin g of this note might be different from the original. talon -neg [facility] Supervisio n of high-risk Supervisio n of high-risk Disease Resolve d 0 6-29 00:00: 00 2023-02-06 00:00:00 2023-02-06 11:24:12 [facility] Multiparit y Multiparit y Disease Resolve d 2021-0 6-29 00:00: 00 2023-02-06 00:00:00 2023-02-06 11:24:29 [facility] Genital herpes simplex, unspecifie d site Genital herpes simplex, unspecifie d site Disease Resolve d 2019-1 0-21 00:00: 00 2022-09-05 00:00:00 2022-09-05 23:21:34 [facility] History of gestationa l diabetes in prior , currently in first trimester History of gestationa l diabetes in prior , currently in first trimester Disease Resolve d 1-10 00:00: 00 2022-06-16 00:00:00 2022-06-16 21:10:30 [facility] Breast pain Breast pain Disease Resolve d 2019-11 00:00: 00 2022-06-13 00:00:00 2022-06-13 15:56:07 [facility] Contracept susan management Contracept susan management Disease Resolve d 1-14 00:00: 00 2022-05-25 00:00:00 2022-05-25 15:05:52 [facility] BMI 40.0-44.9, adult BMI 40.0-44.9, adult Disease Resolve d 2019-11 00:00: 00 2022-05-25 00:00:00 2022-05-25 15:05:36 [facility] Class 3 severe obesity with body mass index (BMI) of 40.0 to 44.9 in adult, unspecifie d obesity type, unspecifie d whether serious comorbidit y present Class 3 severe obesity with body mass index (BMI) of 40.0 to 44.9 in adult, unspecifie d obesity type, unspecifie d whether serious comorbidit y present Disease Resolve d 2019-11 0 00:00: 00 2022-05-25 00:00:00 2022-05-25 15:05:50 [facility] Screen for STD (sexually transmitte d disease) Screen for STD (sexually transmitte d disease) Disease Resolve d 2018-11 0- 00:00: 00 2022-05-25 00:00:00 2022-05-25 15:05:33 [facility] Anemia, Anemia, Disease Resolve d 5-04 00:00: 00 2022-05-25 00:00:00 2022-05-25 15:04:57 [facility] Anemia of mother in , antepartum Anemia of mother in , antepartum Disease Resolve d 8-20 00:00: 00 2019-09-17 00:00:00 2019-09-17 08:46:14 [facility] Gestationa l diabetes mellitus, antepartum Gestationa l diabetes mellitus, antepartum Disease Resolve d 2-06 00:00: 00 2019-09-17 00:00:00 2019-09-17 08:45:48 [facility] Multiparit y Multiparit y Disease Resolve d 2-05 00:00: 00 2019-09-17 00:00:00 2019-09-17 08:45:22 [facility] Supervisio n of high-risk Supervisio n of high-risk Disease Resolve d 2-05 00:00: 00 2019-09-17 00:00:00 2019-09-17 08:45:37 [facility] (spontaneo us vaginal delivery) (spontaneo us vaginal delivery) Disease Resolve d 02-17 00:00: 00 2019-09-17 00:00:00 2019-09-17 08:45:35 [facility] Single live Single live Disease Resolve d 3 00:00: 00 2019-09-17 00:00:00 2019-09-17 08:45:38 [facility] 39 weeks gestation of 39 weeks gestation of Disease Resolve d 02-15 00:00: 2019-09-17 00:00:00 2019-09-17 08:46:15 [facility] Abnormal maternal glucose tolerance, antepartum Abnormal maternal glucose tolerance, antepartum Disease Resolve d 1-11 00:00: 00 2019-01-02 00:00:00 2019-01-02 07:59:50 [facility] Encounter for other contracept susan management Encounter for other contracept susan management Disease Resolve d 5-04 00:00: 00 2018-12-06 00:00:00 2018-12-06 09:11:50 [facility] Obesity (BMI 30-39.9) Obesity (BMI 30-39.9) Disease Resolve d 03-30 00:00: 00 2018-12-06 00:00:00 2018-12-06 09:11:52 [facility] History of depression History of depression Disease Resolve d 03-30 00:00: 00 2018-12-06 00:00:00 2018-12-06 09:11:55 [facility] Exposure to STD Exposure to STD Disease Resolve d 03-30 00:00: 2018-04-05 00:00:00 2018-04-05 09:42:15 [facility] Diet controlled gestationa l diabetes mellitus (GDM), antepartum Diet controlled gestationa l diabetes mellitus (GDM), antepartum Disease Resolve d 03-30 00:00: 00 2018-04-05 00:00:00 2018-04-05 09:42:22 [facility] First degree laceration of perineum during delivery, First degree laceration of perineum during delivery, Disease Resolve d 02-17 00:00: 00 2017-03-30 00:00:00 2017-03-30 09:17:57 [facility] Anemia, Anemia, Disease Resolve d 324 00:00: 00 2017-03-30 00:00:00 2017-03-30 09:19:09 [facility] Obesity (BMI 30-39.9) Obesity (BMI 30-39.9) Disease Resolve d 02-15 00:00: 00 2017-03-30 00:00:00 2017-03-30 09:18:47 [facility] Contracept susan management Contracept susan management Disease Resolve d 07 00:00: 00 2017-03-30 00:00:00 2022-06-12 00:44:17 [facility] Fall Fall Disease Resolve d 2015-11 0 00:00: 00 2017-03-30 00:00:00 2017-03-30 09:19:04 [facility] Supervisio n of high risk , antepartum Supervisio n of high risk , antepartum Disease Resolve d 824 00:00: 00 2017-03-30 00:00:00 2017-03-30 09:17:48 [facility] Gestationa l diabetes Gestationa l diabetes Disease Resolve d 06-29 00:00: 00 2017-03-30 00:00:00 2017-03-30 08:40:24 [facility] Abnormal maternal glucose tolerance, antepartum Abnormal maternal glucose tolerance, antepartum Disease Resolve d 06-27 00:00: 00 2017-03-30 00:00:00 2017-03-30 08:40:24 [facility] Maternal varicella, non-immune Maternal varicella, non-immune Disease Resolve d 06-27 00:00: 00 2017-03-30 00:00:00 2017-03-30 08:40:24 [facility] Spotting affecting in first trimester Spotting affecting in first trimester Disease Resolve d 06-22 00:00: 00 2017-03-30 00:00:00 2017-03-30 09:17:44 [facility] Back pain affecting in first trimester Back pain affecting in first trimester Disease Resolve d 06-22 00:00: 00 2017-03-30 00:00:00 2017-03-30 09:18:55 [facility] High-risk in first trimester High-risk in first trimester Disease Resolve d 06-22 00:00: 00 2016-07-20 00:00:00 2016-07-20 11:15:01 [facility] Allergies, Adverse Reactions, Alerts Allergy Name Allergy Type Status Severity Reaction(s) Onset Date Inactive Date Treating Clinician Comments Source NO KNOWN ALLERGIE S Drug Class Active [facility] Social History Social Habit Start Date Stop Date Quantity Comments Source ASSERTION 2024-02-16 00:00:00 [facility] Alcohol Frequency [facility] History SDOH Alcohol Std Drinks [facility] History SDOH Alcohol Binge [facility] History of tobacco use Passive smoker [facility] Alcoholic beverage intake 2024 00:00:00 2024 00:00:00 Ex-drinker (finding) [facility] Education 2024-10-21 00:00:00 2024-10-21 00:00:00 13 [facility] History of Social function 2024-06-12 00:00:00 2024-06-12 00:00:00 [facility] Alcohol intake 2024-03-14 00:00:00 2024-03-14 00:00:00 Ex-drinker (finding) [facility] Exposure to SARS-CoV-2 (event) 2023-01-27 00:00:00 2023-02-06 10:55:00 Not sure [facility] Tobacco use and exposure 2022-06-09 00:00:00 2022-06-09 00:00:00 Smokeless tobacco non-user [facility] Alcohol Comment 2022-05-25 00:00:00 2022-05-25 00:00:00 stopped for [facility] Sex assigned at 1995 00:00:00 1995 00:00:00 [facility] Smoking Status Start Date Stop Date Source Never smoked tobacco [facility] Medications Ordered Medication Name Filled Medication Name Start Date Stop Date Current Medication? Ordering Clinician Indication Dosage Frequency Signature (SIG) Comments Components Source glyBURIDE (DIABETA) tablet 2.5 mg 2023-11 14:00: 00 10-23 17:43 :44 No 2.5mg 2.5 mg, Oral, QAM WITH BREAKFAST, First dose on Mon10/23/24 at 0800, Until Discontinu ed, Routine [facility] [id number] fum-folic 27 mg iron- 1 mg folic tablet 2023-11 00:00: 00 Yes [id number] 1{tbl} Take 1 tablet by mouth in the morning. [facility] docusate 100 mg capsule 2023-11 00:00: 00 Yes [id number] 200mg Take 2 capsules by mouth once daily as needed for Constipati on. [facility] ferrous sulfate 325 mg (65 mg iron) tablet 2023-11 00:00: 00 Yes [id number] 325mg Take 1 tablet by mouth in the morning. [facility] ibuprofen 800 mg tablet 2023-11 00:00: 00 Yes [id number] 800mg Take 1 tablet by mouth every 8 (eight) hours as needed (pain). Take with food or milk. [facility] acetaminoph en 500 mg tablet 2023-11 00:00: 00 Yes [id number] 1000mg Take 2 tablets by mouth every 8 (eight) hours as needed for Pain. [facility] oxyCODONE 5 mg immediate release tablet 2023-11 00:00: 00 10-31 05:59 :00 Yes [id number] 5mg Take 1 tablet by mouth every 6 (six) hours as needed (pain) for up to 7 days. Indication s: acute pain [facility] docusate (COLACE) capsule 200 mg 2023-11 15:00: 00 10-23 20:16 :02 No 200mg 200 mg, Oral, DAILY, First dose on Mon10/22/24 at 0900, Until Discontinu ed, Routine [facility] simethicone (GAS RELIEF (SIMETHICON E)) chewable tablet 160 mg 2023-11 14:00: 00 10-23 20:16 :02 No 160mg 160 mg, Oral, TID, First dose on Mon10/22/24 at 0800, Until Discontinu ed, Routine [facility] hydrOXYzine (ATARAX) tablet 10 mg 2023-11 12:35: 05 10-23 20:16 :02 No 10mg 10 mg, Oral, Q6HPRN, Starting on Mon10/22/24 at 0635, Until Mon10/23/24 at 1416, Routine, Itching [facility] ibuprofen (IBU) tablet 800 mg 2023-11 10:00: 00 10-23 20:16 :02 No 800mg 800 mg, Oral, Q8HA1, First dose on Mon10/22/24 at 0400, Until Discontinu ed, Routine [facility] diphenhydrA MINE (BENADRYL) tablet 25 mg 2023-11 09:45: 00 10-22 09:06 :00 No 25mg 25 mg, Oral, ONCE, 1 dose, On Mon10/22/24 at 0345, Routine [facility] acetaminoph en (TYLENOL) tablet 1,000 mg 2023-11 08:45: 00 10-23 20:16 :02 No 1000mg 1,000 mg, Oral, Q8H, First dose on Mon10/22/24 at 0245, Until Discontinu ed, Routine [facility] rho(D) immune globulin (RHOPHYLAC) injection 300 mcg 2023-11 08:41: 31 10-23 20:16 :02 No 300ug [facility] oxyCODONE immediate release tablet 5 mg 2023-11 08:41: 25 10-23 20:16 :02 No 5mg 5 mg, Oral, Q6HPRN, Starting on Mon10/22/24 at 0241, Until Mon10/23/24 at 1416, Routine, Pain (scale 7-10), 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 : MOOKIE [employer]MIER [facility] diphenhydrA MINE (BENADRYL) injection 25 mg 2023-11 08:41: 25 10-23 20:16 :02 No 25mg [facility] diphenhydrA MINE (BENADRYL) tablet 25 mg 2023-11 08:41: 25 10-23 20:16 :02 No 25mg [facility] ondansetron (ZOFRAN (PF)) injection 4 mg 2023-11 08:41: 25 10-23 20:16 :02 No 4mg [facility] bisacodyL (DULCOLAX) suppository 10 mg 2023-11 08:41: 25 10-23 20:16 :02 No 10mg [facility] magnesium hydroxide (MILK OF MAGNESIA) 400 mg/5 mL suspension 30 mL 2023-11 08:41: 25 10-23 20:16 :02 No 30mL 30 mL, Oral, QDAILYPRN, Starting on Mon10/22/24 at 0241, Until Mon10/23/24 at 1416, Routine, Constipati on [facility] lactated ringers IV infusion 1,000 mL 2023-11 08:41: 25 10-23 20:16 :02 No 1000mL [facility] morpHINE PF (DURAMORPH- PF) injection 2023-11 06:44: 00 10-22 07:09 :08 No Epidural, ONCE INTRA PROCEDURE, Starting on Mon10/22/24 at 0044, Until Mon10/22/24 at 0109, Routine, Intra-op [facility] naloxone (NARCAN) injection 0.4 mg 2023-11 06:19: 01 10-23 20:16 :02 No .4mg 0.4 mg, Slow IV Push, PRN - SEE INSTRUCTIO NS, Starting on Mon10/22/24 at 0019, Until Mon10/23/24 at 1416, Routine, Sedation/R espiratory Depression , Analgesia Recovery [facility] diphenhydrA MINE (BENADRYL) injection 25 mg 2023-11 06:19: 01 10-23 20:16 :02 No 25mg 25 mg, Slow IV Push, Q4HPRN, Starting on Mon10/22/24 at 0019, Until Mon10/23/24 at 1416, Routine, Itching [facility] ketorolac (TORADOL) injection 30 mg 2023-11 06:19: 01 10-23 20:16 :02 No 30mg 30 mg, Slow IV Push, PRN, 1 dose, Starting on Mon10/22/24 at 0019, Until Mon10/23/24 at 1416, Routine, Pain (scale 4-6) [facility] acetaminoph en (TYLENOL) tablet 1,000 mg 2023-11 06:15: 00 10-22 05:32 :00 No 1000mg 1,000 mg, Oral, ONCE, 1 dose, On Mon10/22/24 at 0015, Routine [facility] methylergon ovine (METHERGINE ) injection 2023-11 06:12: 00 10-22 07:09 :08 No Intramuscu lar, ONCE INTRA PROCEDURE, Starting on Mon10/22/24 at 0012, Until Mon10/22/24 at 0109, Routine, Intra-op [facility] oxytocin (PITOCIN) 30 units in NS 500 mL IV infusion 2023-11 06:10: 00 10-22 07:09 :08 No IV Infusion, CONTINUOUS PRN, Starting on Mon10/22/24 at 0010, Until Mon10/22/24 at 010, Routine, Intra-op [facility] lactated ringers IV infusion 2023-11 06:03: 00 10-22 07:09 :08 No Intravenou s, CONTINUOUS PRN, Starting on Mon10/22/24 at 0003, Until Mon10/22/24 at 0109, Routine, Intra-op [facility] lactated ringers IV infusion 1,000 mL 2023-11 06:00: 00 10-22 11:00 :07 No 1000mL at 125 mL/hr, 1,000 mL, IV Infusion, CONTINUOUS , Starting on Mon10/22/24 at 0000, Until Mon10/22/24 at 0500, LAZARUS [facility] phenylephri ne (VAZCULEP) injection 2023-11 05:57: 00 10-22 07:09 :08 No Intravenou s, CONTINUOUS PRN, Starting on Mon10/21/24 at 2357, Until Mon10/22/24 at 0109, Routine, Intra-op [facility] oxytocin (PITOCIN) 30 units in NS 500 mL IV infusion 2023-11 05:53: 29 10-22 11:00 :07 No 300mL/h 300 mL/hr, IV Infusion, SEE-INSTRU CTIONS, Starting on Mon10/21/24 at 2353, Start at 300 mL/hr for 1 hr then 150 mL/hr for 1 hr. For post delivery uterotonic . [facility] FENTanyl (PF) (SUBLIMAZE) injection 2023-11 05:44: 00 10-22 07:09 :08 No Epidural, ONCE INTRA PROCEDURE, Starting on Mon10/21/24 at 2344, Until Mon10/22/24 at 0109, Routine, Intra-op [facility] lidocaine 2% (XYLOCAINE) 20 mg/mL (2 %) injection 2023-11 05:34: 00 10-22 07:09 :08 No Epidural, ONCE INTRA PROCEDURE, Starting on Mon10/21/24 at 2334, Until Mon10/22/24 at 0109, Routine, Intra-op [facility] sodium citrate-cit melanie acid (BICITRA) 500-334 mg/5 mL solution 30 mL 2023-11 05:15: 28 10-22 05:32 :00 No 30mL 30 mL, Oral, PRE-PROCED URE ONCE, 1 dose, Starting on Mon10/21/24 at 2315, Until Mon10/21/24 at 2332, Routine, Surgery [facility] ceFAZolin (ANCEF) 2,000 mg in NaCl 0.9% (NS) 100 mL MINI-BAG 2023-11 05:15: 16 10-22 06:04 :00 No 2000mg 2,000 mg, IV Piggyback, O.R. 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, Duration of therapy: within 24 hours of surgery [facility] diphenhydrA MINE (BENADRYL) injection 25 mg 2023-11 21:30: 00 10-22 05:54 :00 No 25mg 25 mg, Intravenou s, ONCE, 1 dose, On Mon10/21/24 at 1530, Routine [facility] ropivacaine 0.2 % (NAROPIN (PF)) epidural infusion 2023-11 19:24: 00 10-22 07:09 :08 No Epidural, CONTINUOUS PRN, Starting on Mon10/21/24 at 1324, Until Mon10/22/24 at 0109, Routine, Intra-op [facility] lidocaine-e pinephrine (XYLOCAINE W/EPINEPHRI NE) 1.5 %-1:200,000 injection 2023-11 19:20: 00 10-22 07:09 :08 No Epidural, ONCE INTRA PROCEDURE, Starting on Mon10/21/24 at 1320, Until Mon10/22/24 at 0109, Routine, Intra-op [facility] Sliding Scale Insulin-Reg ular 2023-11 13:35: 56 10-22 11:00 :07 No Subcutaneo us, SEE-INSTRU CTIONS, Starting on Mon10/21/24 at 0735, Until Mon10/22/24 at 0500, Routine [facility] lidocaine 1% (XYLOCAINE) 10 mg/mL (1 %) injection 50 mL 2023-11 13:34: 24 Yes 50mL 50 mL, Infiltrati on, PRN - SEE INSTRUCTIO NS, Starting on Mon10/21/24 at 0734, Until Discontinu ed, Routine, Local anesthesia , For laceration repair only as a local anesthetic as indicated. [facility] oxytocin (PITOCIN) 30 units in NS 500 mL IV infusion 2023-11 13:34: 24 10-22 11:00 :07 No 2mU/min at 2-40 mL/hr, IV Infusion, TITRATE, Starting on Mon10/21/24 at 0734, Until Mon10/22/24 at 0500, LAZARUS [facility] lactated ringers IV infusion 250 mL 2023-11 13:34: 24 10-22 11:00 :06 No 250mL at 999 mL/hr, 250 mL, IV Infusion, PRN - SEE INSTRUCTIO NS, Starting on Mon10/21/24 at 0734, Until Mon10/22/24 at 0500, Routine [facility] D5W-LR IV infusion 1,000 mL 2023-11 13:34: 24 10-22 11:00 :06 No 1000mL at 1-75 mL/hr, IV Infusion, TITRATE, Starting on Mon10/21/24 at 0734, Until Mon10/22/24 at 0500, Routine [facility] sodium citrate-cit melanie acid (BICITRA) 500-334 mg/5 mL solution 30 mL 2023-11 13:34: 24 10-21 18:54 :00 No 30mL 30 mL, Oral, PRE-PROCED URE ONCE, 1 dose, Starting on Mon10/21/24 at 0734, Until Mon10/21/24 at 1254, Routine, Surgery/Pr ocedure [facility] acyclovir 400 mg tablet 2023-11 00:00: 00 11-09 05:59 :00 Yes [id number] 400mg Take 1 tablet by mouth in the morning and 1 tablet at noon and 1 tablet in the evening. Do all this for 30 days. [facility] buPROPion XL 150 mg 24 hr tablet 2023-11 00:00: 00 Yes [id number] 150mg Take 1 tablet by mouth in the morning. [facility] Sliding Scale Insulin-Reg ular 08-18 16:30: 00 Yes Subcutaneo us, AC+HS, First dose on 08/18/24 at 1130, Until Discontinu ed, Routine [facility] KCL (KLOR-CON M20) tablet 40 mEq 08-18 14:30: 00 08-18 13:41 :00 No 40meq 40 mEq, Oral, ONCE, 1 dose, On 08/18/24 at 0930, Routine [facility] aspirin chewable tablet 81 mg 08-18 14:00: 00 Yes 81mg 81 mg, Oral, DAILY, First dose on 08/18/24 at 0900, Until Discontinu ed, Routine [facility] Nitrofurant oin&Nit. Macrocryst (MACROBID) 100 mg capsule 100 mg 08-18 13:45: 00 08-25 12:59 :00 No 100mg 100 mg, Oral, BID, 14 doses, First dose on Mon08/18/24 at 0845, Last dose on Mon08/24/24 at 2000, Routine, Reason for Anti-Infec tive: Empiric Therapy for Suspected Infection, Empiric Therapy Site: Urine, Duration of therapy: 5 days [facility] NaCl 0.9% (NS) IV infusion 1,000 mL 08-18 04:00: 00 Yes 1000mL at 125 mL/hr, IV Infusion, CONTINUOUS , Starting on [facility] 08/17/24 at 2300, Until Discontinu ed, Routine [facility] metroNIDAZO LE (FLAGYL) tablet 500 mg 08-18 03:15: 00 08-25 00:59 :00 No 500mg 500 mg, Oral, Q12H, 14 doses, First dose (after last modificati on) on [facility] 08/17/24 at 2215, Last dose on Mon08/24/24 at 0800, Routine, Reason for Anti-Infec tive: Documented Infection, Documented Infection Site: Pelvic, Duration of Therapy: Once (ED) [facility] cefTRIAXone (ROCEPHIN) 2,000 mg in NaCl 0.9% (NS) 100 mL MINI-BAG 08-18 03:15: 00 08-18 03:52 :00 No 2000mg 2,000 mg, IV Piggyback, ONCE, 1 dose, On [facility] 08/17/24 at 2215, Administer over 30 Minutes, 100 mL, Reason for Anti-Infec tive: Documented Infection, Documented Infection Site: Pelvic, Duration of Therapy: Once (ED) [facility] metoclopram domonique HCl (REGLAN) 10 mg in NaCl 0.9% (NS) piggyback 08-18 02:58: 58 Yes 10mg 10 mg, IV Piggyback, Q6HPRN, Starting on Mon08/17/24 at 2158, Until Discontinu ed, 50 mL [facility] acetaminoph en (TYLENOL) tablet 650 mg 08-18 02:57: 09 Yes 650mg 650 mg, Oral, Q6HPRN, Starting on 08/17/24 at 2157, Until Discontinu ed, Routine, Pain (scale 1-3), Pain (scale 4-6) [facility] NaCl 0.9% (NS) bolus infusion 1,000 mL 08-18 02:30: 00 08-18 02:26 :00 No 1000mL at 999 mL/hr, 1,000 mL, IV Infusion, ONCE, 1 dose, On 08/17/24 at 2130, STAT [facility] NaCl 0.9% (NS) IV infusion 1,000 mL 08-18 01:22: 00 08-18 01:25 :00 No 1000mL at 999 mL/hr, IV Infusion, ONCE, 1 dose, On 08/17/24 at 2030, Routine [facility] insulin regular human (HUMULIN R) injection 2 Units 08-18 01:00: 00 08-18 00:57 :00 No 2U 2 Units, Subcutaneo us, ONCE, 1 dose, On 08/17/24 at 2000, Routine, Indication for insulin: Hyperglyce sav [facility] metroNIDAZO LE 500 mg tablet 08-18 00:00: 00 08-25 04:59 :00 No [id number] 500mg Take 1 tablet by mouth every 12 (twelve) hours for 6 days. [facility] Nitrofurant oin&Nit. Macrocryst 100 mg capsule 08-18 00:00: 00 08-24 04:59 :00 No [id number] 100mg Take 1 capsule by mouth in the morning and 1 capsule in the evening. Do all this for 5 days. [facility] magnesium oxide 400 mg (241.3 mg magnesium) tablet 08-07 00:00: 00 10-23 00:00 :00 No [id number] 400mg Take 1 tablet by mouth in the morning. [facility] proMETHazin e 25 mg tablet 06-19 00:00: 00 10-23 00:00 :00 No [id number] 25mg Take 1 tablet by mouth every 4 (four) hours as needed for Nausea and Vomiting (N/V) for up to 45 doses. [facility] SERTraline (ZOLOFT) 50 mg tablet 06-12 00:00: 00 Yes [id number] 50mg Take 1 tablet by mouth in the morning. [facility] aspirin 81 mg EC tablet 06-12 00:00: 00 10-23 00:00 :00 No [id number] 81mg Take 1 tablet by mouth in the morning. [facility] lancets (FREESTYLE LANCETS) 28 gauge Misc 04-16 00:00: 00 10-23 00:00 :00 No [id number] Check glucose 4x daily [facility] blood sugar diagnostic (FREESTYLE LITE STRIPS) strip 04-16 00:00: 00 10-23 00:00 :00 No [id number] Check blood glucose 4x daily [facility] Blood-Gluco se Meter (FREESTYLE LITE METER) Kit 04-16 00:00: 00 10-23 00:00 :00 No [id number] Check blood glucose 4x daily [facility] PNV 67-iron ps-folate no.1-dha (VITAFOL ULTRA) 29 mg iron- 1 mg-200 mg Cap 04-16 00:00: 00 10-23 00:00 :00 No [id number] 1{each} Take 1 Each by mouth in the morning. [facility] Iron Fum & P-FA-Vit B & C No.9 (INTEGRA PLUS) 125 mg iron- 1 mg Cap -19 00:00: 00 10-23 00:00 :00 No [id number] 1{capsu le} Take 1 capsule by mouth in the morning. [facility] blood sugar diagnostic (TRUE METRIX GLUCOSE TEST STRIP) strip -18 00:00: 00 10-23 00:00 :00 No [id number] Check glucose level 4x daily [facility] Blood-Gluco se Meter (TRUE METRIX GLUCOSE METER) [facility] 03-14 00:00: 00 10-23 00:00 :00 No [id number] Take blood sugar 4 times a day [facility] lancets (LANCETS,UL TRA THIN) 26 gauge [facility] 03-14 00:00: 00 10-23 00:00 :00 No [id number] Take blood sugar 4 times a day [facility] medroxyPROG ESTERone (DEPO-PROVE RA) syringe 150 mg 2022-11 004 15:00: 00 03-14 15:27 :02 No [id number] 150mg [facility] Sliding Scale Insulin-Reg ular + Fsbg Testing 01-17 03:00: 00 Yes Subcutaneo us, AC+HS, First dose on Mon01/16/23 at 2100, Until Discontinu ed, Routine [facility] dextrose 10% (D10W) bolus infusion 250 mL 01-17 01:39: 31 Yes 250mL 250 mL, IV Infusion, PRN - SEE INSTRUCTIO NS, Administer over 60 Minutes, Other, If blood glucose is < or = 70 mg/dL and patient is unable to swallow or has mental status changes, Starting on Mon01/16/23 at 1939
If blood glucose is < [...] blood glucose is < 80 mg/dL, repeat.
[facility] glucagon (GLUCAGEN DIAGNOSTIC KIT) injection 1 mg 01-17 01:39: 21 Yes 1mg 1 mg, Intramuscu lar, PRN, Starting on Mon01/16/23 at 1939, Until Discontinu ed, LAZARUS, Blood Glucose < or = 70 mg/dL and patient is NPO, unable to swallow or has mental changes. [facility] [id number] fum-folic () 27 mg iron- 1 mg folic tablet 01-17 00:00: 00 Yes [id number] 1{tbl} Take 1 tablet by mouth in the morning. [facility] docusate 100 mg capsule 01-17 00:00: 00 08-30 00:00 :00 No [id number] 200mg Take 2 capsules by mouth once daily as needed for Constipati on. [facility] ferrous sulfate 325 mg (65 mg iron) tablet 01-17 00:00: 00 08-30 00:00 :00 No [id number] 325mg Take 1 tablet by mouth in the morning. [facility] ibuprofen 600 mg tablet 01-17 00:00: 00 08-30 00:00 :00 No [id number] 600mg Take 1 tablet by mouth every 6 (six) hours as needed (Pain). Take with food or milk. [facility] [id number] fum-folic () 27 mg iron- 1 mg folic tablet 01-17 00:00: 00 08-30 00:00 :00 No [id number] 1{tbl} Take 1 tablet by mouth in the morning. [facility] butalbital- acetaminoph en-caff (ESGIC) 50-325-40 mg tablet 1 tablet 01-16 14:45: 00 Yes 1{tbl} 1 tablet, Oral, Q4HPRN, Starting on Mon01/16/23 at 0845, Until Discontinu ed, Routine, Headache [facility] proCHLORper azine (COMPAZINE) 10 mg in NaCl 0.9% (NS) piggyback 01-16 14:45: 00 01-16 15:19 :00 No 10mg 10 mg, IV Piggyback, at 100 mL/hr Administer over 30 Minutes, ONCE, 1 dose, On Mon01/16/23 at 0845, Routine [facility] rho(D) immune globulin (RHOGAM) syringe 300 mcg 01-16 10:55: 23 Yes 300ug 300 mcg, Intramuscu lar, ONCE, For 1 dose, Conditiona l, Routine [facility] diphenhydrA MINE (BENADRYL) injection 25 mg 01-16 10:54: 43 Yes 25mg 25 mg, Slow IV Push, Q6HPRN, Starting on Mon01/16/23 at 0454, Until Discontinu ed, Routine, Itching [facility] ibuprofen (IBU) tablet 600 mg 01-16 10:52: 48 Yes 600mg 600 mg, Oral, Q6HPRN, Starting on Mon01/16/23 at 0452, Until Discontinu ed, Routine, Pain (scale 4-6) [facility] acetaminoph en (TYLENOL) tablet 650 mg 01-16 10:52: 48 Yes 650mg 650 mg, Oral, Q6HPRN, Starting on Mon01/16/23 at 0452, Until Discontinu ed, Routine, Pain (scale 1-3) [facility] diphenhydrA MINE (BENADRYL) tablet 25 mg 01-16 10:52: 48 Yes 25mg 25 mg, Oral, Q6HPRN, Starting on Mon01/16/23 at 0452, Until Discontinu ed, Routine, Sleep, Itching [facility] ondansetron (ZOFRAN (PF)) injection 4 mg 01-16 10:52: 48 Yes 4mg 4 mg, Slow IV Push, Q8HPRN, Starting on Mon01/16/23 at 0452, Until Discontinu ed, Routine, Nausea and Vomiting (N/V) [facility] simethicone (GAS RELIEF (SIMETHICON E)) chewable tablet 160 mg 01-16 10:52: 48 Yes 160mg 160 mg, Oral, PC+HSPRN, Starting on Mon01/16/23 at 0452, Until Discontinu ed, Routine, Gas [facility] docusate (COLACE) capsule 200 mg 01-16 10:52: 48 Yes 200mg 200 mg, Oral, QDAILYPRN, Starting on Mon01/16/23 at 0452, Until Discontinu ed, Routine, Constipati on [facility] magnesium hydroxide (MILK OF MAGNESIA) 400 mg/5 mL suspension 30 mL 01-16 10:52: 48 Yes 30mL 30 mL, Oral, QDAILYPRN, Starting on Mon01/16/23 at 0452, Until Discontinu ed, Routine, Constipati on [facility] benzocaine- menthol (DERMOPLAST ) 20-0.5 % topical spray 01-16 10:52: 48 Yes Topical, PRN, Starting on Mon01/16/23 at 0452, Until Discontinu ed, Routine, Perineum discomfort [facility] acetaminoph en (TYLENOL) tablet 650 mg 01-16 06:22: 23 01-16 08:30 :06 No 650mg 650 mg, Oral, Q6HPRN, Starting on Mon01/16/23 at 0022, Until Mon01/16/23 at 0230, Routine, Pain (scale 1-3) [facility] ropivacaine 0.2 % (NAROPIN (PF)) epidural infusion 01-16 01:28: 00 01-16 08:38 :23 No Epidural, CONTINUOUS PRN, Starting on Mon01/15/23 at 1928, Until Discontinu ed, Routine, Intra-op [facility] lidocaine-e pinephrine (XYLOCAINE W/EPINEPHRI NE) 1.5 %-1:200,000 injection 01-16 01:22: 00 01-16 08:38 :23 No Intraderma l, ONCE INTRA PROCEDURE, Starting on Mon01/15/23 at 1922, Until Discontinu ed, Routine, Intra-op [facility] sodium citrate-cit melanie acid (BICITRA) 500-334 mg/5 mL solution 30 mL 01-16 00:31: 06 01-16 01:02 :00 No 30mL 30 mL, Oral, PRE-PROCED URE ONCE, 1 dose, Starting on Mon01/15/23 at 1831, Until Discontinu ed, Routine, Surgery/Pr ocedure [facility] lactated ringers IV infusion 500 mL 01-16 00:31: 06 01-16 00:51 :20 No 500mL at 999 mL/hr, 500 mL, IV Infusion, PRN - SEE INSTRUCTIO NS, 1 dose, Starting on Mon01/15/23 at 1831, Until Discontinu ed, Routine [facility] proMETHazin e (PHENERGAN) 25 mg in NS 50 mL IV piggyback (CNR) 01-15 19:45: 00 01-15 19:48 :06 No 25mg 25 mg, IV Piggyback, at 200 mL/hr Administer over 15 Minutes, ONCE, 1 dose, On Mon01/15/23 at 1345, Routine [facility] nalbuphine (NUBAIN) injection 10 mg 01-15 19:45: 00 01-15 19:12 :00 No 10mg 10 mg, Intravenou s, ONCE, 1 dose, On Mon01/15/23 at 1345, Routine [facility] oxytocin (PITOCIN) 30 units in NS 500 mL IV infusion 01-15 16:01: 59 01-16 08:30 :06 No 2mU/min at 2-40 mL/hr, IV Infusion, TITRATE, Starting on Mon01/15/23 at 1001, Until Mon01/16/23 at 0230, LAZARUS [facility] Sliding Scale Insulin - Regular + Fsbg Testing 01-15 15:02: 06 01-16 08:30 :08 No Subcutaneo us, SEE-INSTRU CTIONS, Starting on Mon01/15/23 at 0902, Until Mon01/16/23 at 0230, Routine [facility] D5W-LR IV infusion 1,000 mL 01-15 15:00: 41 01-16 08:30 :06 No 1000mL at 1-125 mL/hr, IV Infusion, TITRATE, Starting on Mon01/15/23 at 0900, Until Mon01/16/23 at 0230, Routine [facility] ferrous sulfate 325 mg (65 mg iron) tablet 12-27 00:00: 00 01-17 00:00 :00 No [id number] 325mg Take 1 tablet by mouth in the morning and 1 tablet in the evening. [facility] ascorbic acid, vitamin C, 500 mg tablet 12-27 00:00: 00 01-17 00:00 :00 No [id number] 500mg Take 1 tablet by mouth in the morning and 1 tablet at noon and 1 tablet in the evening. [facility] acyclovir 400 mg tablet 30 00:00: 00 01-17 00:00 :00 No [id number] 400mg Take 1 tablet by mouth in the morning and 1 tablet at noon and 1 tablet in the evening. [facility] acyclovir 800 mg tablet 2021-11 00:00: 00 11-13 05:59 :00 No [id number] 800mg Take 1 tablet by mouth in the morning and 1 tablet in the evening. Do all this for 5 days. [facility] aspirin 81 mg EC tablet 18 00:00: 00 01-17 00:00 :00 No [id number] 81mg Take 1 tablet by mouth in the morning. Start at 12 weeks gestation [facility] proMETHazin e 25 mg tablet -14 00:00: 00 01-17 00:00 :00 No [id number] 25mg Take 1 tablet by mouth every 6 (six) hours as needed for Nausea and Vomiting (N/V). [facility] Nitrofurant oin&Nit. Macrocryst (MACROBID) 100 mg capsule 7-05 00:00: 00 11-07 00:00 :00 No [id number] 100mg Take 1 capsule by mouth 2 (two) times daily. [facility] Immunizations Ordered Immunization Name Filled Immunization Name Date Status Comments Source HPV9 2019-09-17 00:00:00 Completed [facility] HPV9 2019-09-17 00:00:00 Completed [facility] HPV9 2019-09-17 00:00:00 Completed [facility] HPV9 2019-09-17 00:00:00 Completed [facility] HPV9 2019-09-17 00:00:00 Completed [facility] HPV9 2019-09-17 00:00:00 Completed [facility] HPV9 2019-09-17 00:00:00 Completed [facility] HPV9 2019-09-17 00:00:00 Completed [facility] HPV9 2019-09-17 00:00:00 Completed [facility] HPV9 2019-09-17 00:00:00 Completed [facility] HPV9 2019-09-17 00:00:00 Completed [facility] HPV9 2019-09-17 00:00:00 Completed [facility] HPV9 2019-09-17 00:00:00 Completed [facility] HPV9 2019-09-17 00:00:00 Completed [facility] HPV9 2019-09-17 00:00:00 Completed [facility] HPV9 2019-09-17 00:00:00 Completed [facility] HPV9 2019-09-17 00:00:00 Completed [facility] HPV9 2019-09-17 00:00:00 Completed [facility] HPV9 2019-09-17 00:00:00 Completed [facility] HPV9 2019-09-17 00:00:00 Completed [facility] HPV9 2019-09-17 00:00:00 Completed [facility] HPV9 2019-09-17 00:00:00 Completed [facility] HPV9 2019-09-17 00:00:00 Completed [facility] HPV9 2019-09-17 00:00:00 Completed [facility] HPV9 2019-09-17 00:00:00 Completed [facility] HPV9 2019-09-17 00:00:00 Completed [facility] HPV9 2019-09-17 00:00:00 Completed HPV9 2019-09-17 00:00:00 Completed [facility] 2019-05-20 00:00:00 Completed [facility] TDAP 2019-05-20 00:00:00 Completed [facility] TDAP 2019-05-20 00:00:00 Completed [facility] TDAP 2019-05-20 00:00:00 Completed [facility] TDAP 2019-05-20 00:00:00 Completed [facility] TDAP 2019-05-20 00:00:00 Completed [facility] TDAP 2019-05-20 00:00:00 Completed [facility] TDAP 2019-05-20 00:00:00 Completed [facility] TDAP 2019-05-20 00:00:00 Completed [facility] TDAP 2019-05-20 00:00:00 Completed [facility] TDAP 2019-05-20 00:00:00 Completed [facility] TDAP 2019-05-20 00:00:00 Completed [facility] TDAP 2019-05-20 00:00:00 Completed [facility] TDAP 2019-05-20 00:00:00 Completed [facility] TDAP 2019-05-20 00:00:00 Completed [facility] TDAP 2019-05-20 00:00:00 Completed [facility] TDAP 2019-05-20 00:00:00 Completed [facility] TDAP 2019-05-20 00:00:00 Completed [facility] TDAP 2019-05-20 00:00:00 Completed [facility] TDAP 2019-05-20 00:00:00 Completed [facility] TDAP 2019-05-20 00:00:00 Completed [facility] TDAP 2019-05-20 00:00:00 Completed [facility]AP 2019-05-20 00:00:00 Completed [facility]AP 2019-05-20 00:00:00 Completed [facility] TDAP 2019-05-20 00:00:00 Completed [facility] TDAP 2019-05-20 00:00:00 Completed [facility] TDAP 2019-05-20 00:00:00 Completed [facility] 2019-05-20 00:00:00 Completed [facility] HPV9 2018-07-04 00:00:00 Completed [facility] HPV9 2018-07-04 00:00:00 Completed [facility] HPV9 2018-07-04 00:00:00 Completed [facility] HPV9 2018-07-04 00:00:00 Completed [facility] HPV9 2018-07-04 00:00:00 Completed [facility] HPV9 2018-07-04 00:00:00 Completed [facility] HPV9 2018-07-04 00:00:00 Completed [facility] HPV9 2018-07-04 00:00:00 Completed [facility] HPV9 2018-07-04 00:00:00 Completed [facility] HPV9 2018-07-04 00:00:00 Completed [facility] HPV9 2018-07-04 00:00:00 Completed [facility] HPV9 2018-07-04 00:00:00 Completed [facility] HPV9 2018-07-04 00:00:00 Completed [facility] HPV9 2018-07-04 00:00:00 Completed [facility] HPV9 2018-07-04 00:00:00 Completed [facility] HPV9 2018-07-04 00:00:00 Completed [facility] HPV9 2018-07-04 00:00:00 Completed [facility] HPV9 2018-07-04 00:00:00 Completed [facility] HPV9 2018-07-04 00:00:00 Completed [facility] HPV9 2018-07-04 00:00:00 Completed [facility] HPV9 2018-07-04 00:00:00 Completed [facility] HPV9 2018-07-04 00:00:00 Completed [facility] HPV9 2018-07-04 00:00:00 Completed [facility] HPV9 2018-07-04 00:00:00 Completed [facility] HPV9 2018-07-04 00:00:00 Completed [facility] HPV9 2018-07-04 00:00:00 Completed [facility] HPV9 2018-07-04 00:00:00 Completed [facility] HPV9 2018-07-04 00:00:00 Completed [facility] HPV9 2018-04-05 00:00:00 Completed [facility] HPV9 2018-04-05 00:00:00 Completed [facility] HPV9 2018-04-05 00:00:00 Completed [facility] HPV9 2018-04-05 00:00:00 Completed [facility] HPV9 2018-04-05 00:00:00 Completed [facility] HPV9 2018-04-05 00:00:00 Completed [facility] HPV9 2018-04-05 00:00:00 Completed [facility] HPV9 2018-04-05 00:00:00 Completed [facility] HPV9 2018-04-05 00:00:00 Completed [facility] HPV9 2018-04-05 00:00:00 Completed [facility] HPV9 2018-04-05 00:00:00 Completed [facility] HPV9 2018-04-05 00:00:00 Completed [facility] HPV9 2018-04-05 00:00:00 Completed [facility] HPV9 2018-04-05 00:00:00 Completed [facility] HPV9 2018-04-05 00:00:00 Completed [facility] HPV9 2018-04-05 00:00:00 Completed [facility] HPV9 2018-04-05 00:00:00 Completed [facility] HPV9 2018-04-05 00:00:00 Completed [facility] HPV9 2018-04-05 00:00:00 Completed [facility] HPV9 2018-04-05 00:00:00 Completed [facility] HPV9 2018-04-05 00:00:00 Completed [facility] HPV9 2018-04-05 00:00:00 [facility] [facility] HPV9 2018-04-05 00:00:00 Completed [facility] HPV9 2018-04-05 00:00:00 Completed [facility] HPV9 2018-04-05 00:00:00 Completed [facility] HPV9 2018-04-05 00:00:00 Completed [facility] HPV9 2018-04-05 00:00:00 Completed [facility] HPV9 2018-04-05 00:00:00 Completed [facility] TDAP 2016-11-23 00:00:00 Completed [facility] TDAP 2016-11-23 00:00:00 Completed [facility] TDAP 2016-11-23 00:00:00 Completed [facility] TDAP 2016-11-23 00:00:00 Completed [facility] TDAP 2016-11-23 00:00:00 Completed [facility] TDAP 2016-11-23 00:00:00 Completed [facility] TDAP 2016-11-23 00:00:00 Completed [facility] TDAP 2016-11-23 00:00:00 Completed [facility] TDAP 2016-11-23 00:00:00 Completed [facility] TDAP 2016-11-23 00:00:00 Completed [facility] TDAP 2016-11-23 00:00:00 Completed [facility] TDAP 2016-11-23 00:00:00 Completed [facility] TDAP 2016-11-23 00:00:00 Completed [facility] TDAP 2016-11-23 00:00:00 Completed [facility] TDAP 2016-11-23 00:00:00 Completed [facility] TDAP 2016-11-23 00:00:00 Completed [facility] TDAP 2016-11-23 00:00:00 Completed [facility] TDAP 2016-11-23 00:00:00 Completed [facility] TDAP 2016-11-23 00:00:00 Completed [facility] TDAP 2016-11-23 00:00:00 Completed [facility] TDAP 2016-11-23 00:00:00 Completed [facility] TDAP 2016-11-23 00:00:00 Completed [facility] TDAP 2016-11-23 00:00:00 Completed [facility] TDAP 2016-11-23 00:00:00 Completed [facility] TDAP 2016-11-23 00:00:00 Completed [facility] TDAP 2016-11-23 00:00:00 Completed [facility] TDAP 2016-11-23 00:00:00 Completed [facility] TDAP 2016-11-23 00:00:00 Completed [facility] Meningococcal Polysaccharide (groups A, C, Y and W-135) conjugate vaccine (MCV4P) 2010-07-16 00:00:00 Completed [facility] TDAP 2010-07-16 00:00:00 Completed [facility] Varicella (varivax)(chicken pox) 2010-07-16 00:00:00 Completed [facility] Meningococcal Polysaccharide (groups A, C, Y and W-135) conjugate vaccine (MCV4P) 2010-07-16 00:00:00 Completed [facility] TDAP 2010-07-16 00:00:00 Completed [facility] Varicella (varivax)(chicken pox) 2010-07-16 00:00:00 Completed [facility] Meningococcal Polysaccharide (groups A, C, Y and W-135) conjugate vaccine (MCV4P) 2010-07-16 00:00:00 Completed [facility] TDAP 2010-07-16 00:00:00 Completed [facility] Varicella (varivax)(chicken pox) 2010-07-16 00:00:00 Completed [facility] Meningococcal Polysaccharide (groups A, C, Y and W-135) conjugate vaccine (MCV4P) 2010-07-16 00:00:00 Completed [facility] TDAP 2010-07-16 00:00:00 Completed [facility] Varicella (varivax)(chicken pox) 2010-07-16 00:00:00 Completed [facility] Meningococcal Polysaccharide (groups A, C, Y and W-135) conjugate vaccine (MCV4P) 2010-07-16 00:00:00 Completed [facility] TDAP 2010-07-16 00:00:00 Completed [facility] Varicella (varivax)(chicken pox) 2010-07-16 00:00:00 Completed [facility] Meningococcal Polysaccharide (groups A, C, Y and W-135) conjugate vaccine (MCV4P) 2010-07-16 00:00:00 Completed [facility] TDAP 2010-07-16 00:00:00 Completed [facility] Varicella (varivax)(chicken pox) 2010-07-16 00:00:00 Completed [facility] Meningococcal Polysaccharide (groups A, C, Y and W-135) conjugate vaccine (MCV4P) 2010-07-16 00:00:00 Completed [facility] TDAP 2010-07-16 00:00:00 Completed [facility] Varicella (varivax)(chicken pox) 2010-07-16 00:00:00 Completed [facility] Meningococcal Polysaccharide (groups A, C, Y and W-135) conjugate vaccine (MCV4P) 2010-07-16 00:00:00 Completed [facility] TDAP 2010-07-16 00:00:00 Completed [facility] Varicella (varivax)(chicken pox) 2010-07-16 00:00:00 Completed [facility] Meningococcal Polysaccharide (groups A, C, Y and W-135) conjugate vaccine (MCV4P) 2010-07-16 00:00:00 Completed [facility] TDAP 2010-07-16 00:00:00 Completed [facility] Varicella (varivax)(chicken pox) 2010-07-16 00:00:00 Completed [facility] Meningococcal Polysaccharide (groups A, C, Y and W-135) conjugate vaccine (MCV4P) 2010-07-16 00:00:00 Completed [facility] TDAP 2010-07-16 00:00:00 Completed [facility] Varicella (varivax)(chicken pox) 2010-07-16 00:00:00 Completed [facility] Meningococcal Polysaccharide (groups A, C, Y and W-135) conjugate vaccine (MCV4P) 2010-07-16 00:00:00 Completed [facility] TDAP 2010-07-16 00:00:00 Completed [facility] Varicella (varivax)(chicken pox) 2010-07-16 00:00:00 Completed [facility] Meningococcal Polysaccharide (groups A, C, Y and W-135) conjugate vaccine (MCV4P) 2010-07-16 00:00:00 Completed [facility] TDAP 2010-07-16 00:00:00 Completed [facility] Varicella (varivax)(chicken pox) 2010-07-16 00:00:00 Completed [facility] Meningococcal Polysaccharide (groups A, C, Y and W-135) conjugate vaccine (MCV4P) 2010-07-16 00:00:00 Completed [facility] TDAP 2010-07-16 00:00:00 Completed [facility] Varicella (varivax)(chicken pox) 2010-07-16 00:00:00 Completed [facility] Meningococcal Polysaccharide (groups A, C, Y and W-135) conjugate vaccine (MCV4P) 2010-07-16 00:00:00 Completed [facility] TDAP 2010-07-16 00:00:00 Completed [facility] Varicella (varivax)(chicken pox) 2010-07-16 00:00:00 Completed [facility] Meningococcal Polysaccharide (groups A, C, Y and W-135) conjugate vaccine (MCV4P) 2010-07-16 00:00:00 Completed [facility] TDAP 2010-07-16 00:00:00 Completed [facility] Varicella (varivax)(chicken pox) 2010-07-16 00:00:00 Completed [facility] Meningococcal Polysaccharide (groups A, C, Y and W-135) conjugate vaccine (MCV4P) 2010-07-16 00:00:00 Completed [facility] TDAP 2010-07-16 00:00:00 Completed [facility] Varicella (varivax)(chicken pox) 2010-07-16 00:00:00 Completed [facility] Meningococcal Polysaccharide (groups A, C, Y and W-135) conjugate vaccine (MCV4P) 2010-07-16 00:00:00 Completed [facility] TDAP 2010-07-16 00:00:00 Completed [facility] Varicella (varivax)(chicken pox) 2010-07-16 00:00:00 Completed [facility] Meningococcal Polysaccharide (groups A, C, Y and W-135) conjugate vaccine (MCV4P) 2010-07-16 00:00:00 Completed [facility] TDAP 2010-07-16 00:00:00 Completed [facility] Varicella (varivax)(chicken pox) 2010-07-16 00:00:00 Completed [facility] Meningococcal Polysaccharide (groups A, C, Y and W-135) conjugate vaccine (MCV4P) 2010-07-16 00:00:00 Completed [facility] TDAP 2010-07-16 00:00:00 Completed [facility] Varicella (varivax)(chicken pox) 2010-07-16 00:00:00 Completed [facility] Meningococcal Polysaccharide (groups A, C, Y and W-135) conjugate vaccine (MCV4P) 2010-07-16 00:00:00 Completed [facility] TDAP 2010-07-16 00:00:00 Completed [facility] Varicella (varivax)(chicken pox) 2010-07-16 00:00:00 Completed [facility] Meningococcal Polysaccharide (groups A, C, Y and W-135) conjugate vaccine (MCV4P) 2010-07-16 00:00:00 Completed [facility] TDAP 2010-07-16 00:00:00 Completed [facility] Varicella (varivax)(chicken pox) 2010-07-16 00:00:00 Completed [facility] Meningococcal Polysaccharide (groups A, C, Y and W-135) conjugate vaccine (MCV4P) 2010-07-16 00:00:00 Completed [facility] TDAP 2010-07-16 00:00:00 Completed [facility] Varicella (varivax)(chicken pox) 2010-07-16 00:00:00 Completed [facility] Meningococcal Polysaccharide (groups A, C, Y and W-135) conjugate vaccine (MCV4P) 2010-07-16 00:00:00 Completed [facility] TDAP 2010-07-16 00:00:00 Completed [facility] Varicella (varivax)(chicken pox) 2010-07-16 00:00:00 Completed [facility] Meningococcal Polysaccharide (groups A, C, Y and W-135) conjugate vaccine (MCV4P) 2010-07-16 00:00:00 Completed [facility] TDAP 2010-07-16 00:00:00 Completed [facility] Varicella (varivax)(chicken pox) 2010-07-16 00:00:00 Completed [facility] Meningococcal Polysaccharide (groups A, C, Y and W-135) conjugate vaccine (MCV4P) 2010-07-16 00:00:00 Completed [facility] TDAP 2010-07-16 00:00:00 Completed [facility] Varicella (varivax)(chicken pox) 2010-07-16 00:00:00 Completed [facility] Meningococcal Polysaccharide (groups A, C, Y and W-135) conjugate vaccine (MCV4P) 2010-07-16 00:00:00 Completed [facility] TDAP 2010-07-16 00:00:00 Completed [facility] Varicella (varivax)(chicken pox) 2010-07-16 00:00:00 Completed [facility] Meningococcal Polysaccharide (groups A, C, Y and W-135) conjugate vaccine (MCV4P) 2010-07-16 00:00:00 Completed TDAP 2010-07-16 00:00:00 Completed Varicella (varivax)(chicken pox) 2010-07-16 00:00:00 Completed Meningococcal Polysaccharide (groups A, C, Y and W-135) conjugate vaccine (MCV4P) 2010-07-16 00:00:00 Completed TDAP 2010-07-16 00:00:00 Completed Varicella (varivax)(chicken pox) 2010-07-16 00:00:00 Completed DTaP, Unspecified Formulation 2004-01-13 00:00:00 Completed [facility] IPV 2004-01-13 00:00:00 Completed [facility] DTaP, Unspecified Formulation 2004-01-13 00:00:00 Completed [facility] IPV 2004-01-13 00:00:00 Completed [facility] DTaP, Unspecified Formulation 2004-01-13 00:00:00 Completed [facility] IPV 2004-01-13 00:00:00 Completed [facility] DTaP, Unspecified Formulation 2004-01-13 00:00:00 Completed [facility] IPV 2004-01-13 00:00:00 Completed [facility] DTaP, Unspecified Formulation 2004-01-13 00:00:00 Completed [facility] IPV 2004-01-13 00:00:00 Completed [facility] DTaP, Unspecified Formulation 2004-01-13 00:00:00 Completed [facility] IPV 2004-01-13 00:00:00 Completed [facility] DTaP, Unspecified Formulation 2004-01-13 00:00:00 Completed [facility] IPV 2004-01-13 00:00:00 Completed [facility] DTaP, Unspecified Formulation 2004-01-13 00:00:00 Completed [facility] IPV 2004-01-13 00:00:00 Completed [facility] DTaP, Unspecified Formulation 2004-01-13 00:00:00 Completed [facility] IPV 2004-01-13 00:00:00 Completed [facility] DTaP, Unspecified Formulation 2004-01-13 00:00:00 Completed [facility] IPV 2004-01-13 00:00:00 Completed [facility] DTaP, Unspecified Formulation 2004-01-13 00:00:00 Completed [facility] IPV 2004-01-13 00:00:00 Completed [facility] DTaP, Unspecified Formulation 2004-01-13 00:00:00 Completed [facility] IPV 2004-01-13 00:00:00 Completed [facility] DTaP, Unspecified Formulation 2004-01-13 00:00:00 Completed [facility] IPV 2004-01-13 00:00:00 Completed [facility] DTaP, Unspecified Formulation 2004-01-13 00:00:00 Completed [facility] IPV 2004-01-13 00:00:00 Completed [facility] DTaP, Unspecified Formulation 2004-01-13 00:00:00 Completed [facility] IPV 2004-01-13 00:00:00 Completed [facility] DTaP, Unspecified Formulation 2004-01-13 00:00:00 Completed [facility] IPV 2004-01-13 00:00:00 Completed [facility] DTaP, Unspecified Formulation 2004-01-13 00:00:00 Completed [facility] IPV 2004-01-13 00:00:00 Completed [facility] DTaP, Unspecified Formulation 2004-01-13 00:00:00 Completed [facility] IPV 2004-01-13 00:00:00 Completed [facility] DTaP, Unspecified Formulation 2004-01-13 00:00:00 Completed [facility] IPV 2004-01-13 00:00:00 Completed [facility] DTaP, Unspecified Formulation 2004-01-13 00:00:00 Completed IPV 2004-01-13 00:00:00 Completed DTaP, Unspecified Formulation 2004-01-13 00:00:00 Completed IPV 2004-01-13 00:00:00 Completed DTAP 2003-11-18 00:00:00 Completed [facility] Hep B, Adol or Pedi Dosage 2003-11-18 00:00:00 Completed [facility] MMR 2003-11-18 00:00:00 Completed [facility] DTAP 2003-11-18 00:00:00 Completed [facility] Hep B, Adol or Pedi Dosage 2003-11-18 00:00:00 Completed [facility] MMR 2003-11-18 00:00:00 Completed [facility] DTAP 2003-11-18 00:00:00 Completed [facility] Hep B, Adol or Pedi Dosage 2003-11-18 00:00:00 Completed [facility] MMR 2003-11-18 00:00:00 Completed [facility] DTAP 2003-11-18 00:00:00 Completed [facility] Hep B, Adol or Pedi Dosage 2003-11-18 00:00:00 Completed [facility] MMR 2003-11-18 00:00:00 Completed [facility] DTAP 2003-11-18 00:00:00 Completed [facility] Hep B, Adol or Pedi Dosage 2003-11-18 00:00:00 Completed [facility] MMR 2003-11-18 00:00:00 Completed [facility] DTAP 2003-11-18 00:00:00 Completed [facility] Hep B, Adol or Pedi Dosage 2003-11-18 00:00:00 Completed [facility] MMR 2003-11-18 00:00:00 Completed [facility] DTAP 2003-11-18 00:00:00 Completed [facility] Hep B, Adol or Pedi Dosage 2003-11-18 00:00:00 Completed [facility] MMR 2003-11-18 00:00:00 Completed [facility] DTAP 2003-11-18 00:00:00 Completed [facility] Hep B, Adol or Pedi Dosage 2003-11-18 00:00:00 Completed [facility] MMR 2003-11-18 00:00:00 Completed [facility] DTaP, Unspecified Formulation 2003-11-18 00:00:00 Completed [facility] IPV 2003-11-18 00:00:00 Completed [facility] DTAP 2003-11-18 00:00:00 Completed [facility] Hep B, Adol or Pedi Dosage 2003-11-18 00:00:00 Completed [facility] MMR 2003-11-18 00:00:00 Completed [facility] DTaP, Unspecified Formulation 2003-11-18 00:00:00 Completed [facility] IPV 2003-11-18 00:00:00 Completed [facility] DTAP 2003-11-18 00:00:00 Completed [facility] Hep B, Adol or Pedi Dosage 2003-11-18 00:00:00 Completed [facility] MMR 2003-11-18 00:00:00 Completed [facility] DTaP, Unspecified Formulation 2003-11-18 00:00:00 Completed [facility] IPV 2003-11-18 00:00:00 Completed [facility] DTAP 2003-11-18 00:00:00 Completed [facility] Hep B, Adol or Pedi Dosage 2003-11-18 00:00:00 Completed [facility] MMR 2003-11-18 00:00:00 Completed [facility] DTaP, Unspecified Formulation 2003-11-18 00:00:00 Completed [facility] IPV 2003-11-18 00:00:00 Completed [facility] DTAP 2003-11-18 00:00:00 Completed [facility] Hep B, Adol or Pedi Dosage 2003-11-18 00:00:00 Completed [facility] MMR 2003-11-18 00:00:00 Completed [facility] DTaP, Unspecified Formulation 2003-11-18 00:00:00 Completed [facility] IPV 2003-11-18 00:00:00 Completed [facility] DTAP 2003-11-18 00:00:00 Completed [facility] Hep B, Adol or Pedi Dosage 2003-11-18 00:00:00 Completed [facility] MMR 2003-11-18 00:00:00 Completed [facility] DTaP, Unspecified Formulation 2003-11-18 00:00:00 Completed [facility] IPV 2003-11-18 00:00:00 Completed [facility] DTAP 2003-11-18 00:00:00 Completed [facility] Hep B, Adol or Pedi Dosage 2003-11-18 00:00:00 Completed [facility] MMR 2003-11-18 00:00:00 Completed [facility] DTaP, Unspecified Formulation 2003-11-18 00:00:00 Completed [facility] IPV 2003-11-18 00:00:00 Completed [facility] DTAP 2003-11-18 00:00:00 Completed [facility] Hep B, Adol or Pedi Dosage 2003-11-18 00:00:00 Completed [facility] MMR 2003-11-18 00:00:00 Completed [facility] DTaP, Unspecified Formulation 2003-11-18 00:00:00 Completed [facility] IPV 2003-11-18 00:00:00 Completed [facility] DTAP 2003-11-18 00:00:00 Completed [facility] Hep B, Adol or Pedi Dosage 2003-11-18 00:00:00 Completed [facility] MMR 2003-11-18 00:00:00 Completed [facility] DTaP, Unspecified Formulation 2003-11-18 00:00:00 Completed [facility] IPV 2003-11-18 00:00:00 Completed [facility] DTAP 2003-11-18 00:00:00 Completed [facility] Hep B, Adol or Pedi Dosage 2003-11-18 00:00:00 Completed [facility] MMR 2003-11-18 00:00:00 Completed [facility] DTaP, Unspecified Formulation 2003-11-18 00:00:00 Completed [facility] IPV 2003-11-18 00:00:00 Completed [facility] DTAP 2003-11-18 00:00:00 Completed [facility] Hep B, Adol or Pedi Dosage 2003-11-18 00:00:00 Completed [facility] MMR 2003-11-18 00:00:00 Completed [facility] DTaP, Unspecified Formulation 2003-11-18 00:00:00 Completed [facility] IPV 2003-11-18 00:00:00 Completed [facility] DTAP 2003-11-18 00:00:00 Completed [facility] Hep B, Adol or Pedi Dosage 2003-11-18 00:00:00 Completed [facility] MMR 2003-11-18 00:00:00 Completed [facility] DTaP, Unspecified Formulation 2003-11-18 00:00:00 Completed [facility] IPV 2003-11-18 00:00:00 Completed [facility] DTAP 2003-11-18 00:00:00 Completed [facility] Hep B, Adol or Pedi Dosage 2003-11-18 00:00:00 Completed [facility] MMR 2003-11-18 00:00:00 Completed [facility] DTaP, Unspecified Formulation 2003-11-18 00:00:00 Completed [facility] IPV 2003-11-18 00:00:00 Completed [facility] DTAP 2003-11-18 00:00:00 Completed [facility] Hep B, Adol or Pedi Dosage 2003-11-18 00:00:00 Completed [facility] MMR 2003-11-18 00:00:00 Completed [facility] DTaP, Unspecified Formulation 2003-11-18 00:00:00 Completed [facility] IPV 2003-11-18 00:00:00 Completed [facility] DTAP 2003-11-18 00:00:00 Completed [facility] Hep B, Adol or Pedi Dosage 2003-11-18 00:00:00 Completed [facility] MMR 2003-11-18 00:00:00 Completed [facility] DTaP, Unspecified Formulation 2003-11-18 00:00:00 Completed [facility] IPV 2003-11-18 00:00:00 Completed [facility] DTAP 2003-11-18 00:00:00 Completed [facility] Hep B, Adol or Pedi Dosage 2003-11-18 00:00:00 Completed [facility] MMR 2003-11-18 00:00:00 Completed [facility] DTaP, Unspecified Formulation 2003-11-18 00:00:00 Completed [facility] IPV 2003-11-18 00:00:00 Completed [facility] DTAP 2003-11-18 00:00:00 Completed [facility] Hep B, Adol or Pedi Dosage 2003-11-18 00:00:00 Completed [facility] MMR 2003-11-18 00:00:00 Completed [facility] DTaP, Unspecified Formulation 2003-11-18 00:00:00 Completed [facility] IPV 2003-11-18 00:00:00 Completed [facility] DTAP 2003-11-18 00:00:00 Completed [facility] Hep B, Adol or Pedi Dosage 2003-11-18 00:00:00 Completed [facility] MMR 2003-11-18 00:00:00 Completed [facility] DTaP, Unspecified Formulation 2003-11-18 00:00:00 Completed [facility] IPV 2003-11-18 00:00:00 Completed [facility] DTAP 2003-11-18 00:00:00 Completed [facility] Hep B, Adol or Pedi Dosage 2003-11-18 00:00:00 Completed [facility] MMR 2003-11-18 00:00:00 Completed [facility] DTaP, Unspecified Formulation 2003-11-18 00:00:00 Completed [facility] IPV 2003-11-18 00:00:00 Completed [facility] DTAP 2003-11-18 00:00:00 Completed Hep B, Adol or Pedi Dosage 2003-11-18 00:00:00 Completed MMR 2003-11-18 00:00:00 Completed DTaP, Unspecified Formulation 2003-11-18 00:00:00 Completed IPV 2003-11-18 00:00:00 Completed DTAP 2003-11-18 00:00:00 Completed Hep B, Adol or Pedi Dosage 2003-11-18 00:00:00 Completed MMR 2003-11-18 00:00:00 Completed DTaP, Unspecified Formulation 2003-11-18 00:00:00 Completed IPV 2003-11-18 00:00:00 Completed DTAP 2003-08-26 00:00:00 Completed [facility] Hep B, Adol or Pedi Dosage 2003-08-26 00:00:00 Completed [facility] MMR 2003-08-26 00:00:00 Completed [facility] Polio (IPV/OPV) 2003-08-26 00:00:00 Completed [facility] Varicella (varivax)(chicken pox) 2003-08-26 00:00:00 Completed [facility] DTAP 2003-08-26 00:00:00 Completed [facility] Hep B, Adol or Pedi Dosage 2003-08-26 00:00:00 Completed [facility] MMR 2003-08-26 00:00:00 Completed [facility] [facility] (IPV/OPV[facility] 2003-08-26 00:00:00 Completed [facility] Varicella (varivax)(chicken pox) 2003-08-26 00:00:00 Completed [facility] DTAP 2003-08-26 00:00:00 Completed [facility] Hep B, Adol or Pedi Dosage 2003-08-26 00:00:00 Completed [facility] MMR 2003-08-26 00:00:00 Completed [facility] Polio (IPV/OPV) 2003-08-26 00:00:00 Completed [facility] Varicella (varivax)(chicken pox) 2003-08-26 00:00:00 Completed [facility] DTAP 2003-08-26 00:00:00 Completed [facility] Hep B, Adol or Pedi Dosage 2003-08-26 00:00:00 Completed [facility] MMR 2003-08-26 00:00:00 Completed [facility] Polio (IPV/OPV) 2003-08-26 00:00:00 Completed [facility] Varicella (varivax)(chicken pox) 2003-08-26 00:00:00 Completed [facility] DTAP 2003-08-26 00:00:00 Completed [facility] Hep B, Adol or Pedi Dosage 2003-08-26 00:00:00 Completed [facility] MMR 2003-08-26 00:00:00 Completed [facility] Polio (IPV/OPV) 2003-08-26 00:00:00 Completed [facility] Varicella (varivax)(chicken pox) 2003-08-26 00:00:00 Completed [facility] DTAP 2003-08-26 00:00:00 Completed [facility] Hep B, Adol or Pedi Dosage 2003-08-26 00:00:00 Completed [facility] MMR 2003-08-26 00:00:00 Completed [facility] Polio (IPV/OPV) 2003-08-26 00:00:00 Completed [facility] Varicella (varivax)(chicken pox) 2003-08-26 00:00:00 Completed [facility] DTAP 2003-08-26 00:00:00 Completed [facility] Hep B, Adol or Pedi Dosage 2003-08-26 00:00:00 Completed [facility] MMR 2003-08-26 00:00:00 Completed [facility] Polio (IPV/OPV) 2003-08-26 00:00:00 Completed [facility] Varicella (varivax)(chicken pox) 2003-08-26 00:00:00 Completed [facility] DTAP 2003-08-26 00:00:00 Completed [facility] Hep B, Adol or Pedi Dosage 2003-08-26 00:00:00 Completed [facility] MMR 2003-08-26 00:00:00 Completed [facility] Polio (IPV/OPV) 2003-08-26 00:00:00 Completed [facility] Varicella (varivax)(chicken pox) 2003-08-26 00:00:00 Completed [facility] DTaP, Unspecified Formulation 2003-08-26 00:00:00 Completed [facility] Pneumococcal 7 Conjugate, PCV7 (Prevnar7) 2003-08-26 00:00:00 Completed [facility] IPV 2003-08-26 00:00:00 Completed [facility] DTAP 2003-08-26 00:00:00 Completed [facility] Hep B, Adol or Pedi Dosage 2003-08-26 00:00:00 Completed [facility] MMR 2003-08-26 00:00:00 Completed [facility] Polio (IPV/OPV) 2003-08-26 00:00:00 Completed [facility] Varicella (varivax)(chicken pox) 2003-08-26 00:00:00 Completed [facility] DTaP, Unspecified Formulation 2003-08-26 00:00:00 Completed [facility] Pneumococcal 7 Conjugate, PCV7 (Prevnar7) 2003-08-26 00:00:00 Completed [facility] IPV 2003-08-26 00:00:00 Completed [facility] DTAP 2003-08-26 00:00:00 Completed [facility] Hep B, Adol or Pedi Dosage 2003-08-26 00:00:00 Completed [facility] MMR 2003-08-26 00:00:00 Completed [facility] Polio (IPV/OPV) 2003-08-26 00:00:00 Completed [facility] Varicella (varivax)(chicken pox) 2003-08-26 00:00:00 Completed [facility] DTaP, Unspecified Formulation 2003-08-26 00:00:00 Completed [facility] Pneumococcal 7 Conjugate, PCV7 (Prevnar7) 2003-08-26 00:00:00 Completed [facility] IPV 2003-08-26 00:00:00 Completed [facility] DTAP 2003-08-26 00:00:00 Completed [facility] Hep B, Adol or Pedi Dosage 2003-08-26 00:00:00 Completed [facility] MMR 2003-08-26 00:00:00 Completed [facility] Polio (IPV/OPV) 2003-08-26 00:00:00 Completed [facility] Varicella (varivax)(chicken pox) 2003-08-26 00:00:00 Completed [facility] DTaP, Unspecified Formulation 2003-08-26 00:00:00 Completed [facility] Pneumococcal 7 Conjugate, PCV7 (Prevnar7) 2003-08-26 00:00:00 Completed [facility] IPV 2003-08-26 00:00:00 Completed [facility] DTAP 2003-08-26 00:00:00 Completed [facility] Hep B, Adol or Pedi Dosage 2003-08-26 00:00:00 Completed [facility] MMR 2003-08-26 00:00:00 Completed [facility] Polio (IPV/OPV) 2003-08-26 00:00:00 Completed [facility] Varicella (varivax)(chicken pox) 2003-08-26 00:00:00 Completed [facility] DTaP, Unspecified Formulation 2003-08-26 00:00:00 Completed [facility] Pneumococcal 7 Conjugate, PCV7 (Prevnar7) 2003-08-26 00:00:00 Completed [facility] IPV 2003-08-26 00:00:00 Completed [facility] DTAP 2003-08-26 00:00:00 Completed [facility] Hep B, Adol or Pedi Dosage 2003-08-26 00:00:00 Completed [facility] MMR 2003-08-26 00:00:00 Completed [facility] Polio (IPV/OPV) 2003-08-26 00:00:00 Completed [facility] Varicella (varivax)(chicken pox) 2003-08-26 00:00:00 Completed [facility] DTaP, Unspecified Formulation 2003-08-26 00:00:00 Completed [facility] Pneumococcal 7 Conjugate, PCV7 (Prevnar7) 2003-08-26 00:00:00 Completed [facility] IPV 2003-08-26 00:00:00 Completed [facility] DTAP 2003-08-26 00:00:00 Completed [facility] Hep B, Adol or Pedi Dosage 2003-08-26 00:00:00 Completed [facility] MMR 2003-08-26 00:00:00 Completed [facility] Polio (IPV/OPV) 2003-08-26 00:00:00 Completed [facility] Varicella (varivax)(chicken pox) 2003-08-26 00:00:00 Completed [facility] DTaP, Unspecified Formulation 2003-08-26 00:00:00 Completed [facility] Pneumococcal 7 Conjugate, PCV7 (Prevnar7) 2003-08-26 00:00:00 Completed [facility] IPV 2003-08-26 00:00:00 Completed [facility] DTAP 2003-08-26 00:00:00 Completed [facility] Hep B, Adol or Pedi Dosage 2003-08-26 00:00:00 Completed [facility] MMR 2003-08-26 00:00:00 Completed [facility] Polio (IPV/OPV) 2003-08-26 00:00:00 Completed [facility] Varicella (varivax)(chicken pox) 2003-08-26 00:00:00 Completed [facility] DTaP, Unspecified Formulation 2003-08-26 00:00:00 Completed [facility] Pneumococcal 7 Conjugate, PCV7 (Prevnar7) 2003-08-26 00:00:00 Completed [facility] IPV 2003-08-26 00:00:00 Completed [facility] DTAP 2003-08-26 00:00:00 Completed [facility] Hep B, Adol or Pedi Dosage 2003-08-26 00:00:00 Completed [facility] MMR 2003-08-26 00:00:00 Completed [facility] Polio (IPV/OPV) 2003-08-26 00:00:00 Completed [facility] Varicella (varivax)(chicken pox) 2003-08-26 00:00:00 Completed [facility] DTaP, Unspecified Formulation 2003-08-26 00:00:00 Completed [facility] Pneumococcal 7 Conjugate, PCV7 (Prevnar7) 2003-08-26 00:00:00 Completed [facility] IPV 2003-08-26 00:00:00 Completed [facility] DTAP 2003-08-26 00:00:00 Completed [facility] Hep B, Adol or Pedi Dosage 2003-08-26 00:00:00 Completed [facility] MMR 2003-08-26 00:00:00 Completed [facility] Polio (IPV/OPV) 2003-08-26 00:00:00 Completed [facility] Varicella (varivax)(chicken pox) 2003-08-26 00:00:00 Completed [facility] DTaP, Unspecified Formulation 2003-08-26 00:00:00 Completed [facility] Pneumococcal 7 Conjugate, PCV7 (Prevnar7) 2003-08-26 00:00:00 Completed [facility] IPV 2003-08-26 00:00:00 Completed [facility] DTAP 2003-08-26 00:00:00 Completed [facility] Hep B, Adol or Pedi Dosage 2003-08-26 00:00:00 Completed [facility] MMR 2003-08-26 00:00:00 Completed [facility] Polio (IPV/OPV) 2003-08-26 00:00:00 Completed [facility] Varicella (varivax)(chicken pox) 2003-08-26 00:00:00 Completed [facility] DTaP, Unspecified Formulation 2003-08-26 00:00:00 Completed [facility] Pneumococcal 7 Conjugate, PCV7 (Prevnar7) 2003-08-26 00:00:00 Completed [facility] IPV 2003-08-26 00:00:00 Completed [facility] DTAP 2003-08-26 00:00:00 Completed [facility] Hep B, Adol or Pedi Dosage 2003-08-26 00:00:00 Completed [facility] MMR 2003-08-26 00:00:00 Completed [facility] Polio (IPV/OPV) 2003-08-26 00:00:00 Completed [facility] Varicella (varivax)(chicken pox) 2003-08-26 00:00:00 Completed [facility] DTaP, Unspecified Formulation 2003-08-26 00:00:00 Completed [facility] Pneumococcal 7 Conjugate, PCV7 (Prevnar7) 2003-08-26 00:00:00 Completed [facility] IPV 2003-08-26 00:00:00 Completed [facility] DTAP 2003-08-26 00:00:00 Completed [facility] Hep B, Adol or Pedi Dosage 2003-08-26 00:00:00 Completed [facility] MMR 2003-08-26 00:00:00 Completed [facility] Polio (IPV/OPV) 2003-08-26 00:00:00 Completed [facility] Varicella (varivax)(chicken pox) 2003-08-26 00:00:00 Completed [facility] DTaP, Unspecified Formulation 2003-08-26 00:00:00 Completed [facility] Pneumococcal 7 Conjugate, PCV7 (Prevnar7) 2003-08-26 00:00:00 Completed [facility] IPV 2003-08-26 00:00:00 Completed [facility] DTAP 2003-08-26 00:00:00 Completed [facility] Hep B, Adol or Pedi Dosage 2003-08-26 00:00:00 Completed [facility] MMR 2003-08-26 00:00:00 Completed [facility] Polio (IPV/OPV) 2003-08-26 00:00:00 Completed [facility] Varicella (varivax)(chicken pox) 2003-08-26 00:00:00 Completed [facility] DTaP, Unspecified Formulation 2003-08-26 00:00:00 Completed [facility] Pneumococcal 7 Conjugate, PCV7 (Prevnar7) 2003-08-26 00:00:00 Completed [facility] IPV 2003-08-26 00:00:00 Completed [facility] DTAP 2003-08-26 00:00:00 Completed [facility] Hep B, Adol or Pedi Dosage 2003-08-26 00:00:00 Completed [facility] MMR 2003-08-26 00:00:00 Completed [facility] Polio (IPV/OPV) 2003-08-26 00:00:00 Completed [facility] Varicella (varivax)(chicken pox) 2003-08-26 00:00:00 Completed [facility] DTaP, Unspecified Formulation 2003-08-26 00:00:00 Completed [facility] Pneumococcal 7 Conjugate, PCV7 (Prevnar7) 2003-08-26 00:00:00 Completed [facility] IPV 2003-08-26 00:00:00 Completed [facility] DTAP 2003-08-26 00:00:00 Completed [facility] Hep B, Adol or Pedi Dosage 2003-08-26 00:00:00 Completed [facility] MMR 2003-08-26 00:00:00 Completed [facility] Polio (IPV/OPV) 2003-08-26 00:00:00 Completed [facility] Varicella (varivax)(chicken pox) 2003-08-26 00:00:00 Completed [facility] DTaP, Unspecified Formulation 2003-08-26 00:00:00 Completed [facility] Pneumococcal 7 Conjugate, PCV7 (Prevnar7) 2003-08-26 00:00:00 Completed [facility] IPV 2003-08-26 00:00:00 Completed [facility] DTAP 2003-08-26 00:00:00 Completed [facility] Hep B, Adol or Pedi Dosage 2003-08-26 00:00:00 Completed [facility] MMR 2003-08-26 00:00:00 Completed [facility] Polio (IPV/OPV) 2003-08-26 00:00:00 Completed [facility] Varicella (varivax)(chicken pox) 2003-08-26 00:00:00 Completed [facility] DTaP, Unspecified Formulation 2003-08-26 00:00:00 Completed [facility] Pneumococcal 7 Conjugate, PCV7 (Prevnar7) 2003-08-26 00:00:00 Completed [facility] IPV 2003-08-26 00:00:00 Completed [facility] DTAP 2003-08-26 00:00:00 Completed [facility] Hep B, Adol or Pedi Dosage 2003-08-26 00:00:00 Completed [facility] MMR 2003-08-26 00:00:00 Completed [facility] Polio (IPV/OPV) 2003-08-26 00:00:00 Completed [facility] Varicella (varivax)(chicken pox) 2003-08-26 00:00:00 Completed [facility] DTaP, Unspecified Formulation 2003-08-26 00:00:00 Completed [facility] Pneumococcal 7 Conjugate, PCV7 (Prevnar7) 2003-08-26 00:00:00 Completed [facility] IPV 2003-08-26 00:00:00 Completed [facility] DTAP 2003-08-26 00:00:00 Completed [facility] Hep B, Adol or Pedi Dosage 2003-08-26 00:00:00 Completed [facility] MMR 2003-08-26 00:00:00 Completed [facility] Polio (IPV/OPV) 2003-08-26 00:00:00 Completed [facility] Varicella (varivax)(chicken pox) 2003-08-26 00:00:00 Completed [facility] DTaP, Unspecified Formulation 2003-08-26 00:00:00 Completed [facility] Pneumococcal 7 Conjugate, PCV7 (Prevnar7) 2003-08-26 00:00:00 Completed [facility] IPV 2003-08-26 00:00:00 Completed [facility] DTAP 2003-08-26 00:00:00 Completed Hep B, Adol or Pedi Dosage 2003-08-26 00:00:00 Completed MMR 2003-08-26 00:00:00 Completed Polio (IPV/OPV) 2003-08-26 00:00:00 Completed Varicella (varivax)(chicken pox) 2003-08-26 00:00:00 Completed DTaP, Unspecified Formulation 2003-08-26 00:00:00 Completed Pneumococcal 7 Conjugate, PCV7 (Prevnar7) 2003-08-26 00:00:00 Completed IPV 2003-08-26 00:00:00 Completed DTAP 2003-08-26 00:00:00 Completed Hep B, Adol or Pedi Dosage 2003-08-26 00:00:00 Completed MMR 2003-08-26 00:00:00 Completed Polio (IPV/OPV) 2003-08-26 00:00:00 Completed Varicella (varivax)(chicken pox) 2003-08-26 00:00:00 Completed DTaP, Unspecified Formulation 2003-08-26 00:00:00 Completed Pneumococcal 7 Conjugate, PCV7 (Prevnar7) 2003-08-26 00:00:00 Completed IPV 2003-08-26 00:00:00 Completed Hep B, Adol or Pedi Dosage 1998-03-17 00:00:00 Completed [facility] HIB 3 Dose Schedule 1998-03-17 00:00:00 Completed [facility] Polio (IPV/OPV) 1998-03-17 00:00:00 Completed [facility] Hep B, Adol or Pedi Dosage 1998-03-17 00:00:00 Completed [facility] HIB 3 Dose Schedule 1998-03-17 00:00:00 Completed [facility] Polio (IPV/OPV) 1998-03-17 00:00:00 Completed [facility] Hep B, Adol or Pedi Dosage 1998-03-17 00:00:00 Completed [facility] HIB 3 Dose Schedule 1998-03-17 00:00:00 Completed [facility] Polio (IPV/OPV) 1998-03-17 00:00:00 Completed [facility] Hep B, Adol or Pedi Dosage 1998-03-17 00:00:00 Completed [facility] HIB 3 Dose Schedule 1998-03-17 00:00:00 Completed [facility] Polio (IPV/OPV) 1998-03-17 00:00:00 Completed [facility] Hep B, Adol or Pedi Dosage 1998-03-17 00:00:00 Completed [facility] HIB 3 Dose Schedule 1998-03-17 00:00:00 Completed [facility] Polio (IPV/OPV) 1998-03-17 00:00:00 Completed [facility] Hep B, Adol or Pedi Dosage 1998-03-17 00:00:00 Completed [facility] HIB 3 Dose Schedule 1998-03-17 00:00:00 Completed [facility] Polio (IPV/OPV) 1998-03-17 00:00:00 Completed [facility] Hep B, Adol or Pedi Dosage 1998-03-17 00:00:00 Completed [facility] HIB 3 Dose Schedule 1998-03-17 00:00:00 Completed [facility] Polio (IPV/OPV) 1998-03-17 00:00:00 Completed [facility] Hep B, Adol or Pedi Dosage 1998-03-17 00:00:00 Completed [facility] HIB 3 Dose Schedule 1998-03-17 00:00:00 Completed [facility] Polio (IPV/OPV) 1998-03-17 00:00:00 Completed [facility] DTaP, Unspecified Formulation 1998-03-17 00:00:00 Completed [facility] Haemophilus influenzae type b vaccine, conjugate unspecified formulation 1998-03-17 00:00:00 Completed [facility] HIB 4 Dose Schedule 1998-03-17 00:00:00 Completed [facility] IPV 1998-03-17 00:00:00 Completed [facility] Hep B, Adol or Pedi Dosage 1998-03-17 00:00:00 Completed [facility] HIB 3 Dose Schedule 1998-03-17 00:00:00 Completed [facility] Polio (IPV/OPV) 1998-03-17 00:00:00 Completed [facility] DTaP, Unspecified Formulation 1998-03-17 00:00:00 Completed [facility] Haemophilus influenzae type b vaccine, conjugate unspecified formulation 1998-03-17 00:00:00 Completed [facility] HIB 4 Dose Schedule 1998-03-17 00:00:00 Completed [facility] IPV 1998-03-17 00:00:00 Completed [facility] Hep B, Adol or Pedi Dosage 1998-03-17 00:00:00 Completed [facility] HIB 3 Dose Schedule 1998-03-17 00:00:00 Completed [facility] Polio (IPV/OPV) 1998-03-17 00:00:00 Completed [facility] DTaP, Unspecified Formulation 1998-03-17 00:00:00 Completed [facility] Haemophilus influenzae type b vaccine, conjugate unspecified formulation 1998-03-17 00:00:00 Completed [facility] HIB 4 Dose Schedule 1998-03-17 00:00:00 Completed [facility] IPV 1998-03-17 00:00:00 Completed [facility] Hep B, Adol or Pedi Dosage 1998-03-17 00:00:00 Completed [facility] HIB 3 Dose Schedule 1998-03-17 00:00:00 Completed [facility] Polio (IPV/OPV) 1998-03-17 00:00:00 Completed [facility] DTaP, Unspecified Formulation 1998-03-17 00:00:00 Completed [facility] Haemophilus influenzae type b vaccine, conjugate unspecified formulation 1998-03-17 00:00:00 Completed [facility] HIB 4 Dose Schedule 1998-03-17 00:00:00 Completed [facility] IPV 1998-03-17 00:00:00 Completed [facility] Hep B, Adol or Pedi Dosage 1998-03-17 00:00:00 Completed [facility] HIB 3 Dose Schedule 1998-03-17 00:00:00 Completed [facility] Polio (IPV/OPV) 1998-03-17 00:00:00 Completed [facility] DTaP, Unspecified Formulation 1998-03-17 00:00:00 Completed [facility] Haemophilus influenzae type b vaccine, conjugate unspecified formulation 1998-03-17 00:00:00 Completed [facility] HIB 4 Dose Schedule 1998-03-17 00:00:00 Completed [facility] IPV 1998-03-17 00:00:00 Completed [facility] Hep B, Adol or Pedi Dosage 1998-03-17 00:00:00 Completed [facility] HIB 3 Dose Schedule 1998-03-17 00:00:00 Completed [facility] Polio (IPV/OPV) 1998-03-17 00:00:00 Completed [facility] DTaP, Unspecified Formulation 1998-03-17 00:00:00 Completed [facility] Haemophilus influenzae type b vaccine, conjugate unspecified formulation 1998-03-17 00:00:00 Completed [facility] HIB 4 Dose Schedule 1998-03-17 00:00:00 Completed [facility] IPV 1998-03-17 00:00:00 Completed [facility] Hep B, Adol or Pedi Dosage 1998-03-17 00:00:00 Completed [facility] HIB 3 Dose Schedule 1998-03-17 00:00:00 Completed [facility] Polio (IPV/OPV) 1998-03-17 00:00:00 Completed [facility] DTaP, Unspecified Formulation 1998-03-17 00:00:00 Completed [facility] Haemophilus influenzae type b vaccine, conjugate unspecified formulation 1998-03-17 00:00:00 Completed [facility] HIB 4 Dose Schedule 1998-03-17 00:00:00 Completed [facility] IPV 1998-03-17 00:00:00 Completed [facility] Hep B, Adol or Pedi Dosage 1998-03-17 00:00:00 Completed [facility] HIB 3 Dose Schedule 1998-03-17 00:00:00 Completed [facility] Polio (IPV/OPV) 1998-03-17 00:00:00 Completed [facility] DTaP, Unspecified Formulation 1998-03-17 00:00:00 Completed [facility] Haemophilus influenzae type b vaccine, conjugate unspecified formulation 1998-03-17 00:00:00 Completed [facility] HIB 4 Dose Schedule 1998-03-17 00:00:00 Completed [facility] IPV 1998-03-17 00:00:00 Completed [facility] Hep B, Adol or Pedi Dosage 1998-03-17 00:00:00 Completed [facility] HIB 3 Dose Schedule 1998-03-17 00:00:00 Completed [facility] Polio (IPV/OPV) 1998-03-17 00:00:00 Completed [facility] DTaP, Unspecified Formulation 1998-03-17 00:00:00 Completed [facility] Haemophilus influenzae type b vaccine, conjugate unspecified formulation 1998-03-17 00:00:00 Completed [facility] HIB 4 Dose Schedule 1998-03-17 00:00:00 Completed [facility] IPV 1998-03-17 00:00:00 Completed [facility] Hep B, Adol or Pedi Dosage 1998-03-17 00:00:00 Completed [facility] HIB 3 Dose Schedule 1998-03-17 00:00:00 Completed [facility] Polio (IPV/OPV) 1998-03-17 00:00:00 Completed [facility] DTaP, Unspecified Formulation 1998-03-17 00:00:00 Completed [facility] Haemophilus influenzae type b vaccine, conjugate unspecified formulation 1998-03-17 00:00:00 Completed [facility] HIB 4 Dose Schedule 1998-03-17 00:00:00 Completed [facility] IPV 1998-03-17 00:00:00 Completed [facility] Hep B, Adol or Pedi Dosage 1998-03-17 00:00:00 Completed [facility] HIB 3 Dose Schedule 1998-03-17 00:00:00 Completed [facility] Polio (IPV/OPV) 1998-03-17 00:00:00 Completed [facility] DTaP, Unspecified Formulation 1998-03-17 00:00:00 Completed [facility] Haemophilus influenzae type b vaccine, conjugate unspecified formulation 1998-03-17 00:00:00 Completed [facility] HIB 4 Dose Schedule 1998-03-17 00:00:00 Completed [facility] IPV 1998-03-17 00:00:00 Completed [facility] Hep B, Adol or Pedi Dosage 1998-03-17 00:00:00 Completed [facility] HIB 3 Dose Schedule 1998-03-17 00:00:00 Completed [facility] Polio (IPV/OPV) 1998-03-17 00:00:00 Completed [facility] DTaP, Unspecified Formulation 1998-03-17 00:00:00 Completed [facility] Haemophilus influenzae type b vaccine, conjugate unspecified formulation 1998-03-17 00:00:00 Completed [facility] HIB 4 Dose Schedule 1998-03-17 00:00:00 Completed [facility] IPV 1998-03-17 00:00:00 Completed [facility] Hep B, Adol or Pedi Dosage 1998-03-17 00:00:00 Completed [facility] HIB 3 Dose Schedule 1998-03-17 00:00:00 Completed [facility] Polio (IPV/OPV) 1998-03-17 00:00:00 Completed [facility] DTaP, Unspecified Formulation 1998-03-17 00:00:00 Completed [facility] Haemophilus influenzae type b vaccine, conjugate unspecified formulation 1998-03-17 00:00:00 Completed [facility] HIB 4 Dose Schedule 1998-03-17 00:00:00 Completed [facility] IPV 1998-03-17 00:00:00 Completed [facility] Hep B, Adol or Pedi Dosage 1998-03-17 00:00:00 Completed [facility] HIB 3 Dose Schedule 1998-03-17 00:00:00 Completed [facility] Polio (IPV/OPV) 1998-03-17 00:00:00 Completed [facility] DTaP, Unspecified Formulation 1998-03-17 00:00:00 Completed [facility] Haemophilus influenzae type b vaccine, conjugate unspecified formulation 1998-03-17 00:00:00 Completed [facility] HIB 4 Dose Schedule 1998-03-17 00:00:00 Completed [facility] IPV 1998-03-17 00:00:00 Completed [facility] Hep B, Adol or Pedi Dosage 1998-03-17 00:00:00 Completed [facility] HIB 3 Dose Schedule 1998-03-17 00:00:00 Completed [facility] Polio (IPV/OPV) 1998-03-17 00:00:00 Completed [facility] DTaP, Unspecified Formulation 1998-03-17 00:00:00 Completed [facility] Haemophilus influenzae type b vaccine, conjugate unspecified formulation 1998-03-17 00:00:00 Completed [facility] HIB 4 Dose Schedule 1998-03-17 00:00:00 Completed [facility] IPV 1998-03-17 00:00:00 Completed [facility] Hep B, Adol or Pedi Dosage 1998-03-17 00:00:00 Completed [facility] HIB 3 Dose Schedule 1998-03-17 00:00:00 Completed [facility] Polio (IPV/OPV) 1998-03-17 00:00:00 Completed [facility] DTaP, Unspecified Formulation 1998-03-17 00:00:00 Completed [facility] Haemophilus influenzae type b vaccine, conjugate unspecified formulation 1998-03-17 00:00:00 Completed [facility] HIB 4 Dose Schedule 1998-03-17 00:00:00 Completed [facility] IPV 1998-03-17 00:00:00 Completed [facility] Hep B, Adol or Pedi Dosage 1998-03-17 00:00:00 Completed [facility] HIB 3 Dose Schedule 1998-03-17 00:00:00 Completed [facility] Polio (IPV/OPV) 1998-03-17 00:00:00 Completed [facility] DTaP, Unspecified Formulation 1998-03-17 00:00:00 Completed [facility] Haemophilus influenzae type b vaccine, conjugate unspecified formulation 1998-03-17 00:00:00 Completed [facility] HIB 4 Dose Schedule 1998-03-17 00:00:00 Completed [facility] IPV 1998-03-17 00:00:00 Completed [facility] Hep B, Adol or Pedi Dosage 1998-03-17 00:00:00 Completed [facility] HIB 3 Dose Schedule 1998-03-17 00:00:00 Completed [facility] Polio (IPV/OPV) 1998-03-17 00:00:00 Completed [facility] DTaP, Unspecified Formulation 1998-03-17 00:00:00 Completed [facility] Haemophilus influenzae type b vaccine, conjugate unspecified formulation 1998-03-17 00:00:00 Completed [facility] HIB 4 Dose Schedule 1998-03-17 00:00:00 Completed [facility] IPV 1998-03-17 00:00:00 Completed [facility] Hep B, Adol or Pedi Dosage 1998-03-17 00:00:00 Completed [facility] HIB 3 Dose Schedule 1998-03-17 00:00:00 Completed [facility] Polio (IPV/OPV) 1998-03-17 00:00:00 Completed [facility] DTaP, Unspecified Formulation 1998-03-17 00:00:00 Completed [facility] Haemophilus influenzae type b vaccine, conjugate unspecified formulation 1998-03-17 00:00:00 Completed [facility] HIB 4 Dose Schedule 1998-03-17 00:00:00 Completed [facility] IPV 1998-03-17 00:00:00 Completed [facility] Hep B, Adol or Pedi Dosage 1998-03-17 00:00:00 Completed HIB 3 Dose Schedule 1998-03-17 00:00:00 Completed Polio (IPV/OPV) 1998-03-17 00:00:00 Completed DTaP, Unspecified Formulation 1998-03-17 00:00:00 Completed [facility] Haemophilus influenzae type b vaccine, conjugate unspecified formulation 1998-03-17 00:00:00 Completed HIB 4 Dose Schedule 1998-03-17 00:00:00 Completed IPV 1998-03-17 00:00:00 Completed Hep B, Adol or Pedi Dosage 1998-03-17 00:00:00 Completed HIB 3 Dose Schedule 1998-03-17 00:00:00 Completed Polio (IPV/OPV) 1998-03-17 00:00:00 Completed DTaP, Unspecified Formulation 1998-03-17 00:00:00 Completed [facility] Haemophilus influenzae type b vaccine, conjugate unspecified formulation 1998-03-17 00:00:00 Completed HIB 4 Dose Schedule 1998-03-17 00:00:00 Completed IPV 1998-03-17 00:00:00 Completed DTAP 1998-02-25 00:00:00 Completed [facility] DTAP 1998-02-25 00:00:00 Completed [facility] DTAP 1998-02-25 00:00:00 Completed [facility] DTAP 1998-02-25 00:00:00 Completed [facility] DTAP 1998-02-25 00:00:00 Completed [facility] DTAP 1998-02-25 00:00:00 Completed [facility] DTAP 1998-02-25 00:00:00 Completed [facility] DTAP 1998-02-25 00:00:00 Completed [facility] DTAP 1998-02-25 00:00:00 Completed [facility] DTAP 1998-02-25 00:00:00 Completed [facility] DTAP 1998-02-25 00:00:00 Completed [facility] DTAP 1998-02-25 00:00:00 Completed [facility] DTAP 1998-02-25 00:00:00 Completed [facility] DTAP 1998-02-25 00:00:00 Completed [facility] DTAP 1998-02-25 00:00:00 Completed [facility] DTAP 1998-02-25 00:00:00 Completed [facility] DTAP 1998-02-25 00:00:00 Completed [facility] DTAP 1998-02-25 00:00:00 Completed [facility] DTAP 1998-02-25 00:00:00 Completed [facility] DTAP 1998-02-25 00:00:00 Completed [facility] DTAP 1998-02-25 00:00:00 Completed [facility] DTAP 1998-02-25 00:00:00 Completed [facility] DTAP 1998-02-25 00:00:00 Completed [facility] DTAP 1998-02-25 00:00:00 Completed [facility] DTAP 1998-02-25 00:00:00 Completed [facility] DTAP 1998-02-25 00:00:00 Completed [facility] DTAP 1998-02-25 00:00:00 Completed [facility] DTAP 1998-02-25 00:00:00 Completed [facility] HPV9 Unknown Completed [facility] DTAP Unknown Completed [facility] Hep B, Adol or Pedi Dosage Unknown Completed [facility] HIB 3 Dose Schedule Unknown Completed [facility] Meningococcal Polysaccharide (groups A, C, Y and W-135) conjugate vaccine (MCV4P) Unknown Completed [facility] MMR Unknown Completed [facility] Polio (IPV/OPV) Unknown Completed [facility] TDAP Unknown Completed [facility] Varicella (varivax)(chicken pox) Unknown Completed [facility] DTaP, Unspecified Formulation Unknown Completed [facility] Haemophilus influenzae type b vaccine, conjugate unspecified formulation Unknown Completed [facility] HIB 4 Dose Schedule Unknown Completed [facility] Pneumococcal 7 Conjugate, PCV7 (Prevnar7) Unknown Completed [facility] IPV Unknown Completed [facility] HPV9 Unknown Completed [facility] DTAP Unknown Completed [facility] Hep B, Adol or Pedi Dosage Unknown Completed [facility] HIB 3 Dose Schedule Unknown Completed [facility] Meningococcal Polysaccharide (groups A, C, Y and W-135) conjugate vaccine (MCV4P) Unknown Completed [facility] MMR Unknown Completed [facility] Polio (IPV/OPV) Unknown Completed [facility] TDAP Unknown Completed [facility] Varicella (varivax)(chicken pox) Unknown Completed [facility] DTaP, Unspecified Formulation Unknown Completed [facility] Haemophilus influenzae type b vaccine, conjugate unspecified formulation Unknown Completed [facility] HIB 4 Dose Schedule Unknown Completed [facility] Pneumococcal 7 Conjugate, PCV7 (Prevnar7) Unknown Completed [facility] IPV Unknown Completed [facility] HPV9 Unknown Completed [facility] DTAP Unknown Completed [facility] Hep B, Adol or Pedi Dosage Unknown Completed [facility] HIB 3 Dose Schedule Unknown Completed [facility] Meningococcal Polysaccharide (groups A, C, Y and W-135) conjugate vaccine (MCV4P) Unknown Completed [facility] MMR Unknown Completed [facility] Polio (IPV/OPV) Unknown Completed [facility] TDAP Unknown Completed [facility] Varicella (varivax)(chicken pox) Unknown Completed [facility] DTaP, Unspecified Formulation Unknown Completed [facility] Haemophilus influenzae type b vaccine, conjugate unspecified formulation Unknown Completed [facility] HIB 4 Dose Schedule Unknown Completed [facility] Pneumococcal 7 Conjugate, PCV7 (Prevnar7) Unknown Completed [facility] IPV Unknown Completed [facility] HIB 3 Dose Schedule Unknown Completed [facility] Meningococcal Polysaccharide (groups A, C, Y and W-135) conjugate vaccine (MCV4P) Unknown Completed [facility] Haemophilus influenzae type b vaccine, conjugate unspecified formulation Unknown Completed [facility] HIB 4 Dose Schedule Unknown Completed [facility] Pneumococcal 7 Conjugate, PCV7 (Prevnar7) Unknown Completed [facility] TDAP Unknown Completed [facility] HPV9 Unknown Completed [facility] DTAP Unknown Completed [facility] Hep B, Adol or Pedi Dosage Unknown Completed [facility] MMR Unknown Completed [facility] Polio (IPV/OPV) Unknown Completed [facility] Varicella (varivax)(chicken pox) Unknown Completed [facility] DTaP, Unspecified Formulation Unknown Completed [facility] IPV Unknown Completed [facility] TDAP Unknown Completed [facility] HPV9 Unknown Completed [facility] DTAP Unknown Completed [facility] Hep B, Adol or Pedi Dosage Unknown Completed [facility] HIB 3 Dose Schedule Unknown Completed [facility] Meningococcal Polysaccharide (groups A, C, Y and W-135) conjugate vaccine (MCV4P) Unknown Completed [facility] MMR Unknown Completed [facility] Polio (IPV/OPV) Unknown Completed [facility] Varicella (varivax)(chicken pox) Unknown Completed [facility] DTaP, Unspecified Formulation Unknown Completed [facility] Haemophilus influenzae type b vaccine, conjugate unspecified formulation Unknown Completed [facility] HIB 4 Dose Schedule Unknown Completed [facility] Pneumococcal 7 Conjugate, PCV7 (Prevnar7) Unknown Completed [facility] IPV Unknown Completed [facility] TDAP Unknown Completed [facility] HPV9 Unknown Completed [facility] DTAP Unknown Completed [facility] Hep B, Adol or Pedi Dosage Unknown Completed [facility] HIB 3 Dose Schedule Unknown Completed [facility] Meningococcal Polysaccharide (groups A, C, Y and W-135) conjugate vaccine (MCV4P) Unknown Completed [facility] MMR Unknown Completed [facility] Polio (IPV/OPV) Unknown Completed [facility] Varicella (varivax)(chicken pox) Unknown Completed [facility] DTaP, Unspecified Formulation Unknown Completed [facility] Haemophilus influenzae type b vaccine, conjugate unspecified formulation Unknown Completed [facility] HIB 4 Dose Schedule Unknown Completed [facility] Pneumococcal 7 Conjugate, PCV7 (Prevnar7) Unknown Completed [facility] IPV Unknown Completed [facility] TDAP Unknown Completed [facility] HPV9 Unknown Completed [facility] DTAP Unknown Completed [facility] Hep B, Adol or Pedi Dosage Unknown Completed [facility] HIB 3 Dose Schedule Unknown Completed [facility] Meningococcal Polysaccharide (groups A, C, Y and W-135) conjugate vaccine (MCV4P) Unknown Completed [facility] MMR Unknown Completed [facility] Polio (IPV/OPV) Unknown Completed [facility] Varicella (varivax)(chicken pox) Unknown Completed [facility] DTaP, Unspecified Formulation Unknown Completed [facility] Haemophilus influenzae type b vaccine, conjugate unspecified formulation Unknown Completed [facility] HIB 4 Dose Schedule Unknown Completed [facility] Pneumococcal 7 Conjugate, PCV7 (Prevnar7) Unknown Completed [facility] IPV Unknown Completed [facility] TDAP Unknown Completed [facility] HPV9 Unknown Completed [facility] DTAP Unknown Completed [facility] Hep B, Adol or Pedi Dosage Unknown Completed [facility] HIB 3 Dose Schedule Unknown Completed [facility] Meningococcal Polysaccharide (groups A, C, Y and W-135) conjugate vaccine (MCV4P) Unknown Completed [facility] MMR Unknown Completed [facility] Polio (IPV/OPV) Unknown Completed [facility] Varicella (varivax)(chicken pox) Unknown Completed [facility] DTaP, Unspecified Formulation Unknown Completed [facility] Haemophilus influenzae type b vaccine, conjugate unspecified formulation Unknown Completed [facility] HIB 4 Dose Schedule Unknown Completed [facility] Pneumococcal 7 Conjugate, PCV7 (Prevnar7) Unknown Completed [facility] IPV Unknown Completed [facility] TDAP Unknown Completed [facility] HPV9 Unknown Completed [facility] DTAP Unknown Completed [facility] Hep B, Adol or Pedi Dosage Unknown Completed [facility] HIB 3 Dose Schedule Unknown Completed [facility] Meningococcal Polysaccharide (groups A, C, Y and W-135) conjugate vaccine (MCV4P) Unknown Completed [facility] MMR Unknown Completed [facility] Polio (IPV/OPV) Unknown Completed [facility] Varicella (varivax)(chicken pox) Unknown Completed [facility] DTaP, Unspecified Formulation Unknown Completed [facility] Haemophilus influenzae type b vaccine, conjugate unspecified formulation Unknown Completed [facility] HIB 4 Dose Schedule Unknown Completed [facility] Pneumococcal 7 Conjugate, PCV7 (Prevnar7) Unknown Completed [facility] IPV Unknown Completed [facility] TDAP Unknown Completed [facility] HPV9 Unknown Completed [facility] DTAP Unknown Completed [facility] Hep B, Adol or Pedi Dosage Unknown Completed [facility] HIB 3 Dose Schedule Unknown Completed [facility] Meningococcal Polysaccharide (groups A, C, Y and W-135) conjugate vaccine (MCV4P) Unknown Completed [facility] MMR Unknown Completed [facility] Polio (IPV/OPV) Unknown Completed [facility] Varicella (varivax)(chicken pox) Unknown Completed [facility] DTaP, Unspecified Formulation Unknown Completed [facility] Haemophilus influenzae type b vaccine, conjugate unspecified formulation Unknown Completed [facility] HIB 4 Dose Schedule Unknown Completed [facility] Pneumococcal 7 Conjugate, PCV7 (Prevnar7) Unknown Completed [facility] IPV Unknown Completed [facility] TDAP Unknown Completed [facility] HPV9 Unknown Completed [facility] DTAP Unknown Completed [facility] Hep B, Adol or Pedi Dosage Unknown Completed [facility] HIB 3 Dose Schedule Unknown Completed [facility] Meningococcal Polysaccharide (groups A, C, Y and W-135) conjugate vaccine (MCV4P) Unknown Completed [facility] MMR Unknown Completed [facility] Polio (IPV/OPV) Unknown [facility] Varicella (varivax)(chicken pox) Unknown Completed [facility] DTaP, Unspecified Formulation Unknown Completed [facility] Haemophilus influenzae type b vaccine, conjugate unspecified formulation Unknown Completed [facility] HIB 4 Dose Schedule Unknown Completed [facility] Pneumococcal 7 Conjugate, PCV7 (Prevnar7) Unknown Completed [facility] IPV Unknown Completed [facility] TDAP Unknown Completed [facility] HPV9 Unknown Completed [facility] DTAP Unknown Completed [facility] Hep B, Adol or Pedi Dosage Unknown Completed [facility] HIB 3 Dose Schedule Unknown Completed [facility] Meningococcal Polysaccharide (groups A, C, Y and W-135) conjugate vaccine (MCV4P) Unknown Completed [facility] MMR Unknown Completed [facility] Polio (IPV/OPV) Unknown [facility] Varicella (varivax)(chicken pox) Unknown Completed [facility] DTaP, Unspecified Formulation Unknown Completed [facility] Haemophilus influenzae type b vaccine, conjugate unspecified formulation Unknown Completed [facility] HIB 4 Dose Schedule Unknown Completed [facility] Pneumococcal 7 Conjugate, PCV7 (Prevnar7) Unknown Completed [facility] IPV Unknown Completed [facility] TDAP Unknown Completed [facility] HPV9 Unknown Completed [facility] DTAP Unknown Completed [facility] Hep B, Adol or Pedi Dosage Unknown Completed [facility] HIB 3 Dose Schedule Unknown Completed [facility] Meningococcal Polysaccharide (groups A, C, Y and W-135) conjugate vaccine (MCV4P) Unknown Completed [facility] MMR Unknown Completed [facility] Polio (IPV/OPV) Unknown [facility] Varicella (varivax)(chicken pox) Unknown Completed [facility] DTaP, Unspecified Formulation Unknown Completed [facility] Haemophilus influenzae type b vaccine, conjugate unspecified formulation Unknown Completed [facility] HIB 4 Dose Schedule Unknown Completed [facility] Pneumococcal 7 Conjugate, PCV7 (Prevnar7) Unknown Completed [facility] IPV Unknown Completed [facility] TDAP Unknown Completed [facility] HPV9 Unknown Completed [facility] DTAP Unknown Completed [facility] Hep B, Adol or Pedi Dosage Unknown Completed [facility] HIB 3 Dose Schedule Unknown Completed [facility] Meningococcal Polysaccharide (groups A, C, Y and W-135) conjugate vaccine (MCV4P) Unknown Completed [facility] MMR Unknown Completed [facility] Polio (IPV/OPV) Unknown [facility] Varicella (varivax)(chicken pox) Unknown Completed [facility] DTaP, Unspecified Formulation Unknown Completed [facility] Haemophilus influenzae type b vaccine, conjugate unspecified formulation Unknown Completed [facility] HIB 4 Dose Schedule Unknown Completed [facility] Pneumococcal 7 Conjugate, PCV7 (Prevnar7) Unknown Completed [facility] IPV Unknown Completed [facility] TDAP Unknown Completed [facility] HPV9 Unknown Completed [facility] DTAP Unknown Completed [facility] Hep B, Adol or Pedi Dosage Unknown Completed [facility] HIB 3 Dose Schedule Unknown Completed [facility] Meningococcal Polysaccharide (groups A, C, Y and W-135) conjugate vaccine (MCV4P) Unknown Completed [facility] MMR Unknown Completed [facility] Polio (IPV/OPV) Unknown [facility] Varicella (varivax)(chicken pox) Unknown Completed [facility] DTaP, Unspecified Formulation Unknown Completed [facility] Haemophilus influenzae type b vaccine, conjugate unspecified formulation Unknown Completed [facility] HIB 4 Dose Schedule Unknown Completed [facility] Pneumococcal 7 Conjugate, PCV7 (Prevnar7) Unknown Completed [facility] IPV Unknown Completed [facility] TDAP Unknown Completed [facility] HPV9 Unknown Completed [facility] DTAP Unknown Completed [facility] Hep B, Adol or Pedi Dosage Unknown Completed [facility] HIB 3 Dose Schedule Unknown Completed [facility] Meningococcal Polysaccharide (groups A, C, Y and W-135) conjugate vaccine (MCV4P) Unknown Completed [facility] MMR Unknown Completed [facility] Polio (IPV/OPV) Unknown Completed [facility] Varicella (varivax)(chicken pox) Unknown Completed [facility] DTaP, Unspecified Formulation Unknown Completed [facility] Haemophilus influenzae type b vaccine, conjugate unspecified formulation Unknown Completed [facility] HIB 4 Dose Schedule Unknown Completed [facility] Pneumococcal 7 Conjugate, PCV7 (Prevnar7) Unknown Completed [facility] IPV Unknown Completed [facility] TDAP Unknown Completed [facility] HPV9 Unknown Completed [facility] DTAP Unknown Completed [facility] Hep B, Adol or Pedi Dosage Unknown Completed [facility] HIB 3 Dose Schedule Unknown Completed [facility] Meningococcal Polysaccharide (groups A, C, Y and W-135) conjugate vaccine (MCV4P) Unknown Completed [facility] MMR Unknown Completed [facility] Polio (IPV/OPV) Unknown Completed [facility] Varicella (varivax)(chicken pox) Unknown Completed [facility] DTaP, Unspecified Formulation Unknown Completed [facility] Haemophilus influenzae type b vaccine, conjugate unspecified formulation Unknown Completed [facility] HIB 4 Dose Schedule Unknown Completed [facility] Pneumococcal 7 Conjugate, PCV7 (Prevnar7) Unknown Completed [facility] IPV Unknown Completed [facility] TDAP Unknown Completed [facility] HPV9 Unknown Completed [facility] DTAP Unknown Completed [facility] Hep B, Adol or Pedi Dosage Unknown Completed [facility] HIB 3 Dose Schedule Unknown Completed [facility] Meningococcal Polysaccharide (groups A, C, Y and W-135) conjugate vaccine (MCV4P) Unknown Completed [facility] MMR Unknown Completed [facility] Polio (IPV/OPV) Unknown Completed [facility] Varicella (varivax)(chicken pox) Unknown Completed [facility] DTaP, Unspecified Formulation Unknown Completed [facility] Haemophilus influenzae type b vaccine, conjugate unspecified formulation Unknown Completed [facility] HIB 4 Dose Schedule Unknown Completed [facility] Pneumococcal 7 Conjugate, PCV7 (Prevnar7) Unknown Completed [facility] IPV Unknown Completed [facility] Vital Signs Vital Name Observation Time Observation Value Comments S ource Systolic blood pressure 2024 20:30:00 120 mm[Hg] [facility] Diastolic blood pressure 2024 20:30:00 77 mm[Hg] [facility] Heart rate 2024 20:30:00 105 /min [facility] Body temperature 2024 20:30:00 36.44 Linda [facility] Respiratory rate 2024 20:30:00 17 /min [facility] Body height 2024 20:30:00 157.5 cm [facility] Body weight 2024 20:30:00 94.62 kg [facility] BMI 2024 20:30:00 38.15 kg/m2 [facility] Systolic blood pressure 2024-10-29 18:55:00 138 mm[Hg] [facility] Diastolic blood pressure 2024-10-29 18:55:00 85 mm[Hg] [facility] Heart rate 2024-10-29 18:50:00 91 /min [facility] Body temperature 2024-10-29 18:50:00 36.06 Linda [facility] Respiratory rate 2024-10-29 18:50:00 18 /min [facility] Body height 2024-10-29 18:50:00 157.5 cm [facility] Body weight 2024-10-29 18:50:00 96.798 kg [facility] BMI 2024-10-29 18:50:00 39.03 kg/m2 [facility] Systolic blood pressure 2024-10-23 13:40:00 110 mm[Hg] [facility] Diastolic blood pressure 2024-10-23 13:40:00 65 mm[Hg] [facility] Heart rate 2024-10-23 13:40:00 95 /min [facility] Body temperature 2024-10-23 13:40:00 36.72 Linda [facility] Respiratory rate 2024-10-23 13:40:00 18 /min [facility] Oxygen saturation in Arterial blood by Pulse oximetry 2024-10-23 13:40:00 100 /min [facility] Body height 2024-10-21 13:29:00 157.5 cm [facility] Body weight 2024-10-21 13:29:00 106.323 kg Simultaneous filing. User may not have seen previous data. [facility] BMI 2024-10-21 13:29:00 42.87 kg/m2 [facility] Systolic blood pressure 2024-10-22 05:00:00 111 mm[Hg] [facility] Diastolic blood pressure 2024-10-22 05:00:00 80 mm[Hg] [facility] Heart rate 2024-10-22 05:00:00 89 /min [facility] Oxygen saturation in Arterial blood by Pulse oximetry 2024-10-22 05:00:00 100 /min [facility] Body temperature 2024-10-22 03:00:00 37.06 Linda [facility] Respiratory rate 2024-10-22 03:00:00 18 /min [facility] Body height 2024-10-21 13:29:00 157.5 cm [facility] Body weight 2024-10-21 13:29:00 106.323 kg Simultaneous filing. User may not have seen previous data. [facility] BMI 2024-10-21 13:29:00 42.87 kg/m2 [facility] Systolic blood pressure 2024-10-11 16:03:00 130 mm[Hg] [facility] Diastolic blood pressure 2024-10-11 16:03:00 83 mm[Hg] [facility] Heart rate 2024-10-11 16:03:00 92 /min [facility] Body temperature 2024-10-11 16:03:00 36.61 Linda [facility] Respiratory rate 2024-10-11 16:03:00 18 /min [facility] Body height 2024-10-11 16:03:00 157.5 cm [facility] Body weight 2024-10-11 16:03:00 106.709 kg [facility] BMI 2024-10-11 16:03:00 43.03 kg/m2 [facility] Systolic blood pressure 2024-10-09 16:08:00 132 mm[Hg] [facility] Diastolic blood pressure 2024-10-09 16:08:00 79 mm[Hg] [facility] Heart rate 2024-10-09 16:08:00 94 /min [facility] Body temperature 2024-10-09 16:08:00 36.78 Linda [facility] Respiratory rate 2024-10-09 16:08:00 19 /min [facility] Body height 2024-10-09 16:08:00 157.5 cm [facility] Body weight 2024-10-09 16:08:00 105.915 kg [facility] BMI 2024-10-09 16:08:00 42.71 kg/m2 [facility] Systolic blood pressure 2024-09-30 13:07:00 131 mm[Hg] [facility] Diastolic blood pressure 2024-09-30 13:07:00 87 mm[Hg] [facility] Heart rate 2024-09-30 13:07:00 115 /min [facility] Body temperature 2024-09-30 13:07:00 36.44 Linda [facility] Respiratory rate 2024-09-30 13:07:00 18 /min [facility] Body height 2024-09-30 13:07:00 157.5 cm [facility] Body weight 2024-09-30 13:07:00 104.826 kg [facility] BMI 2024-09-30 13:07:00 42.27 kg/m2 [facility] Systolic blood pressure 2024-09-23 13:07:00 116 mm[Hg] [facility] Diastolic blood pressure 2024-09-23 13:07:00 77 mm[Hg] [facility] Heart rate 2024-09-23 13:07:00 104 /min [facility] Body temperature 2024-09-23 13:07:00 36.56 Linda [facility] Respiratory rate 2024-09-23 13:07:00 17 /min [facility] Body height 2024-09-23 13:07:00 157.5 cm [facility] Body weight 2024-09-23 13:07:00 104.055 kg [facility] BMI 2024-09-23 13:07:00 41.96 kg/m2 [facility] Systolic blood pressure 2024-09-18 12:56:00 130 mm[Hg] [facility] Diastolic blood pressure 2024-09-18 12:56:00 83 mm[Hg] [facility] Heart rate 2024-09-18 12:56:00 102 /min [facility] Body temperature 2024-09-18 12:56:00 35.67 Linda [facility] Respiratory rate 2024-09-18 12:56:00 18 /min [facility] Body height 2024-09-18 12:56:00 157.5 cm [facility] Body weight 2024-09-18 12:56:00 104.055 kg [facility] BMI 2024-09-18 12:56:00 41.96 kg/m2 [facility] Systolic blood pressure 2024-09-11 15:42:00 126 mm[Hg] [facility] Diastolic blood pressure 2024-09-11 15:42:00 81 mm[Hg] [facility] Heart rate 2024-09-11 15:42:00 102 /min [facility] Body temperature 2024-09-11 15:42:00 36.61 Linda [facility] Respiratory rate 2024-09-11 15:42:00 18 /min [facility] Body height 2024-09-11 15:42:00 157.5 cm [facility] Body weight 2024-09-11 15:42:00 104.129 kg [facility] BMI 2024-09-11 15:42:00 41.99 kg/m2 [facility] Systolic blood pressure 2024-08-29 18:06:00 139 mm[Hg] [facility] Diastolic blood pressure 2024-08-29 18:06:00 79 mm[Hg] [facility] Heart rate 2024-08-29 18:06:00 111 /min [facility] Body temperature 2024-08-29 18:06:00 36.72 Linda [facility] Respiratory rate 2024-08-29 18:06:00 17 /min [facility] Body height 2024-08-29 18:06:00 157.5 cm [facility] Body weight 2024-08-29 18:06:00 104.101 kg [facility] BMI 2024-08-29 18:06:00 41.98 kg/m2 [facility] Systolic blood pressure 2024-08-18 10:00:00 133 mm[Hg] [facility] Diastolic blood pressure 2024-08-18 10:00:00 75 mm[Hg] [facility] Heart rate 2024-08-18 10:00:00 98 /min [facility] Body temperature 2024-08-18 10:00:00 36.78 Linda [facility] Respiratory rate 2024-08-18 10:00:00 18 /min [facility] Oxygen saturation in Arterial blood by Pulse oximetry 2024-08-18 10:00:00 100 /min [facility] Body height 2024-08-17 23:12:00 157.5 cm [facility] Body weight 2024-08-17 23:12:00 102.694 kg [facility] BMI 2024-08-17 23:12:00 41.41 kg/m2 [facility] Systolic blood pressure 2024-08-07 13:51:00 130 mm[Hg] [facility] Diastolic blood pressure 2024-08-07 13:51:00 83 mm[Hg] [facility] Heart rate 2024-08-07 13:51:00 93 /min [facility] Body temperature 2024-08-07 13:51:00 35.67 Linda [facility] Respiratory rate 2024-08-07 13:51:00 18 /min [facility] Body height 2024-08-07 13:51:00 157.5 cm [facility] Body weight 2024-08-07 13:51:00 103.964 kg [facility] BMI 2024-08-07 13:51:00 41.92 kg/m2 [facility] Body weight 2024-06-28 18:30:00 102.513 kg [facility] BMI 2024-06-28 18:30:00 41.34 kg/m2 [facility] Systolic blood pressure 2024-06-19 13:23:00 120 mm[Hg] [facility] Diastolic blood pressure 2024-06-19 13:23:00 71 mm[Hg] [facility] Heart rate 2024-06-19 13:23:00 81 /min [facility] Body temperature 2024-06-19 13:23:00 36.83 Linda [facility] Respiratory rate 2024-06-19 13:23:00 18 /min [facility] Body height 2024-06-19 13:23:00 157.5 cm [facility] Body weight 2024-06-19 13:23:00 102.513 kg [facility] BMI 2024-06-19 13:23:00 41.34 kg/m2 [facility] Systolic blood pressure 2024-06-12 19:43:00 128 mm[Hg] [facility] Diastolic blood pressure 2024-06-12 19:43:00 75 mm[Hg] [facility] Heart rate 2024-06-12 19:43:00 86 /min [facility] Body temperature 2024-06-12 19:43:00 36.44 Linda [facility] Respiratory rate 2024-06-12 19:43:00 18 /min [facility] Body height 2024-06-12 19:43:00 157.5 cm [facility] Body weight 2024-06-12 19:43:00 103.137 kg [facility] BMI 2024-06-12 19:43:00 41.59 kg/m2 [facility] Systolic blood pressure 2024-04-16 13:22:00 131 mm[Hg] [facility] Diastolic blood pressure 2024-04-16 13:22:00 80 mm[Hg] [facility] Heart rate 2024-04-16 13:22:00 80 /min [facility] Body temperature 2024-04-16 13:22:00 36.61 Linda [facility] Respiratory rate 2024-04-16 13:22:00 18 /min [facility] Body height 2024-04-16 13:22:00 157.5 cm [facility] Body weight 2024-04-16 13:22:00 102.876 kg [facility] BMI 2024-04-16 13:22:00 41.48 kg/m2 [facility] Systolic blood pressure 2024-03-14 14:49:00 115 mm[Hg] [facility] Diastolic blood pressure 2024-03-14 14:49:00 82 mm[Hg] [facility] Heart rate 2024-03-14 14:49:00 81 /min [facility] Body temperature 2024-03-14 14:49:00 36.5 Linda [facility] Respiratory rate 2024-03-14 14:49:00 18 /min [facility] Body height 2024-03-14 14:49:00 157.5 cm [facility] Body weight 2024-03-14 14:49:00 103.647 kg [facility] BMI 2024-03-14 14:49:00 41.79 kg/m2 [facility] Systolic blood pressure 2023-08-30 14:19:00 129 mm[Hg] [facility] Diastolic blood pressure 2023-08-30 14:19:00 66 mm[Hg] [facility] Heart rate 2023-08-30 14:19:00 82 /min [facility] Body temperature 2023-08-30 14:19:00 36.56 Linda [facility] Respiratory rate 2023-08-30 14:19:00 17 /min [facility] Body height 2023-08-30 14:19:00 157.5 cm [facility] Body weight 2023-08-30 14:19:00 96.299 kg [facility] BMI 2023-08-30 14:19:00 38.83 kg/m2 [facility] Systolic blood pressure 2023-02-06 15:57:00 108 mm[Hg] [facility] Diastolic blood pressure 2023-02-06 15:57:00 72 mm[Hg] [facility] Heart rate 2023-02-06 15:57:00 84 /min [facility] Body temperature 2023-02-06 15:57:00 35.78 Linda [facility] Respiratory rate 2023-02-06 15:57:00 18 /min [facility] Body height 2023-02-06 15:57:00 157.5 cm [facility] Body weight 2023-02-06 15:57:00 89.359 kg [facility] BMI 2023-02-06 15:57:00 36.03 kg/m2 [facility] Systolic blood pressure 2023-01-17 18:42:00 122 mm[Hg] [facility] Diastolic blood pressure 2023-01-17 18:42:00 78 mm[Hg] [facility] Heart rate 2023-01-17 18:42:00 65 /min [facility] Body temperature 2023-01-17 18:42:00 36.56 Linda [facility] Respiratory rate 2023-01-17 18:42:00 18 /min [facility] Oxygen saturation in Arterial blood by Pulse oximetry 2023-01-17 18:42:00 98 /min [facility] Body height 2023-01-15 14:00:00 157.5 cm [facility] Body weight 2023-01-15 14:00:00 93.849 kg [facility] BMI 2023-01-15 14:00:00 37.84 kg/m2 [facility] Systolic blood pressure 2023-01-10 21:15:00 118 mm[Hg] [facility] Diastolic blood pressure 2023-01-10 21:15:00 79 mm[Hg] [facility] Heart rate 2023-01-10 21:15:00 79 /min [facility] Body temperature 2023-01-10 21:15:00 35.61 Linda [facility] Respiratory rate 2023-01-10 21:15:00 18 /min [facility] Body height 2023-01-10 21:15:00 157.5 cm [facility] Body weight 2023-01-10 21:15:00 95.89 kg [facility] BMI 2023-01-10 21:15:00 38.67 kg/m2 [facility] Systolic blood pressure 2022-12-29 20:23:00 108 mm[Hg] [facility] Diastolic blood pressure 2022-12-29 20:23:00 80 mm[Hg] [facility] Heart rate 2022-12-29 20:23:00 87 /min [facility] Body temperature 2022-12-29 20:23:00 36.56 Linda [facility] Respiratory rate 2022-12-29 20:23:00 18 /min [facility] Body height 2022-12-29 20:23:00 154.9 cm [facility] Body weight 2022-12-29 20:23:00 93.169 kg [facility] BMI 2022-12-29 20:23:00 38.81 kg/m2 [facility] Systolic blood pressure 2022-12-26 17:23:00 117 mm[Hg] [facility] Diastolic blood pressure 2022-12-26 17:23:00 71 mm[Hg] [facility] Heart rate 2022-12-26 17:23:00 86 /min [facility] Body temperature 2022-12-26 17:23:00 35.94 Linda [facility] Respiratory rate 2022-12-26 17:23:00 18 /min [facility] Body height 2022-12-26 17:23:00 154.9 cm [facility] Body weight 2022-12-26 17:23:00 92.398 kg [facility] BMI 2022-12-26 17:23:00 38.49 kg/m2 [facility] Systolic blood pressure 2022-12-21 20:51:00 113 mm[Hg] [facility] Diastolic blood pressure 2022-12-21 20:51:00 72 mm[Hg] [facility] Heart rate 2022-12-21 20:51:00 88 /min [facility] Body temperature 2022-12-21 20:51:00 35.61 Linda [facility] Body height 2022-12-21 20:51:00 157.5 cm [facility] Body weight 2022-12-21 20:51:00 92.625 kg [facility] BMI 2022-12-21 20:51:00 37.35 kg/m2 [facility] Systolic blood pressure 2022-12-14 17:08:00 111 mm[Hg] [facility] Diastolic blood pressure 2022-12-14 17:08:00 65 mm[Hg] [facility] Heart rate 2022-12-14 17:08:00 102 /min [facility] Body temperature 2022-12-14 17:08:00 36.56 Linda [facility] Respiratory rate 2022-12-14 17:08:00 20 /min [facility] Body height 2022-12-14 17:08:00 157.5 cm [facility] Body weight 2022-12-14 17:08:00 92.806 kg [facility] BMI 2022-12-14 17:08:00 37.42 kg/m2 [facility] Systolic blood pressure 2022-11-07 14:52:00 108 mm[Hg] [facility] Diastolic blood pressure 2022-11-07 14:52:00 69 mm[Hg] [facility] Heart rate 2022-11-07 14:52:00 84 /min [facility] Body temperature 2022-11-07 14:52:00 36.39 Linda [facility] Respiratory rate 2022-11-07 14:52:00 16 /min [facility] Body height 2022-11-07 14:52:00 157.5 cm [facility] Body weight 2022-11-07 14:52:00 90.266 kg [facility] BMI 2022-11-07 14:52:00 36.40 kg/m2 [facility] Systolic blood pressure 2022-09-23 14:23:00 111 mm[Hg] [facility] Diastolic blood pressure 2022-09-23 14:23:00 63 mm[Hg] [facility] Heart rate 2022-09-23 14:23:00 77 /min [facility] Body temperature 2022-09-23 14:23:00 36 Linda [facility] Respiratory rate 2022-09-23 14:23:00 18 /min [facility] Body height 2022-09-23 14:23:00 157.5 cm [facility] Body weight 2022-09-23 14:23:00 85.531 kg [facility] BMI 2022-09-23 14:23:00 34.49 kg/m2 [facility] Systolic blood pressure 2022-08-04 14:39:00 114 mm[Hg] [facility] Diastolic blood pressure 2022-08-04 14:39:00 74 mm[Hg] [facility] Heart rate 2022-08-04 14:39:00 84 /min [facility] Body temperature 2022-08-04 14:39:00 36.28 Linda [facility] Respiratory rate 2022-08-04 14:39:00 18 /min [facility] Body height 2022-08-04 14:39:00 157.5 cm [facility] Body weight 2022-08-04 14:39:00 81.733 kg [facility] BMI 2022-08-04 14:39:00 32.96 kg/m2 [facility] Systolic blood pressure 2022-07-15 13:18:00 109 mm[Hg] [facility] Diastolic blood pressure 2022-07-15 13:18:00 83 mm[Hg] [facility] Heart rate 2022-07-15 13:18:00 90 /min [facility] Body temperature 2022-07-15 13:18:00 36.44 Linda [facility] Respiratory rate 2022-07-15 13:18:00 18 /min [facility] Body height 2022-07-15 13:18:00 157.5 cm [facility] Body weight 2022-07-15 13:18:00 80.457 kg [facility] BMI 2022-07-15 13:18:00 32.44 kg/m2 [facility] Systolic blood pressure 2022-06-30 13:02:00 128 mm[Hg] [facility] Diastolic blood pressure 2022-06-30 13:02:00 77 mm[Hg] [facility] Heart rate 2022-06-30 13:02:00 78 /min [facility] Body temperature 2022-06-30 13:02:00 36.44 Linda [facility] Respiratory rate 2022-06-30 13:02:00 20 /min [facility] Body height 2022-06-30 13:02:00 157.5 cm [facility] Body weight 2022-06-30 13:02:00 80.4 kg [facility] BMI 2022-06-30 13:02:00 32.42 kg/m2 [facility] Procedures Procedure Date / Time Performed Performing Clinician Source POCT GLUCOSE (AUTOMATED) 2024-10-23 17:25:00 Anastasia Harley [facility] POCT GLUCOSE (AUTOMATED) 2024-10-23 12:07:00 Anastasia Harley [facility] CBC WITH DIFF 2024-10-23 10:50:00 Salma Muhammad [facility] POCT GLUCOSE (AUTOMATED) 2024-10-22 23:28:00 Anastasia Harley [facility] POCT GLUCOSE (AUTOMATED) 2024-10-22 23:28:00 Anastsaia Harley [facility] POCT GLUCOSE (AUTOMATED) 2024-10-22 16:58:00 Anastasia Harley [facility] POCT GLUCOSE (AUTOMATED) 2024-10-22 16:58:00 Anastasia Harley [facility] POCT GLUCOSE (AUTOMATED) 2024-10-22 12:27:00 Anastasia Harley [facility] POCT GLUCOSE (AUTOMATED) 2024-10-22 12:27:00 Anastasia Harley [facility] SECTION 2024-10-22 05:28:00 Mookie Cormier [facility] TUBAL LIGATION 2024-10-22 05:28:00 Mookie Cormier [facility] SECTION 2024-10-22 05:28:00 Mookie Cormier [facility] TUBAL LIGATION 2024-10-22 05:28:00 Mookie Cormier [facility] POCT GLUCOSE (AUTOMATED) 2024-10-22 04:50:00 Anastasia Harley [facility] POCT GLUCOSE (AUTOMATED) 2024-10-22 04:50:00 Anastasia Harley [facility] POCT GLUCOSE (AUTOMATED) 2024-10-22 00:46:00 Anastasia Harley [facility] POCT GLUCOSE (AUTOMATED) 2024-10-22 00:46:00 Anastasia Harley [facility] POCT GLUCOSE (AUTOMATED) 2024-10-21 20:04:00 Anastasia Harley [facility] POCT GLUCOSE (AUTOMATED) 2024-10-21 20:04:00 Anastasia Harley [facility] CENTRAL NEURAXIAL BLOCK 2024-10-21 19:34:00 Diana Vázquez [facility] SGOT (ASPARTATE AMINO TRANSFER) 2024-10-21 15:43:00 Shanel Alexander [facility] CREATININE 2024-10-21 15:43:00 Jennifer Alexander [facility] ALANINE AMINO TRANSFERASE(SGPT 2024-10-21 15:43:00 Shanel Alexander [facility] LACTATE DEHYDROGENASE 2024-10-21 15:43:00 Shanel Galeas [facility] URIC ACID 2024-10-21 15:43:00 Jennifer Alexander [facility] URINALYSIS 2024-10-21 15:43:00 Jennifer Alexander [facility] PROTEIN CREAT RATIO URINE RANDOM 2024-10-21 15:43:00 Shanel Alexander [facility] SGOT (ASPARTATE AMINO TRANSFER) 2024-10-21 15:43:00 Shanel Alexander [facility] CREATININE 2024-10-21 15:43:00 Jennifer Alexander [facility] ALANINE AMINO TRANSFERASE(SGPT 2024-10-21 15:43:00 Shanel Alexander [facility] LACTATE DEHYDROGENASE 2024-10-21 15:43:00 Shanel Galeas [facility] URIC ACID 2024-10-21 15:43:00 Jennifer Alexander [facility] URINALYSIS 2024-10-21 15:43:00 Jennifer Alexander [facility] PROTEIN CREAT RATIO URINE RANDOM 2024-10-21 15:43:00 Shanel Alexander [facility] CBC WITH DIFF 2024-10-21 15:42:00 Jennifer Alexander [facility] HEPATITIS B SURFACE ANTIGEN 2024-10-21 15:42:00 Shanel Alexander [facility] HB ABO GROUPING 2024-10-21 15:42:00 Jennifer Alexander Mandi [facility] RHO (D) IMMUNE GLOBULIN 2024-10-21 15:42:00 León Raymundo [facility] HIV 1/2 AG-AB WITH REFLEX 2024-10-21 15:42:00 Shanel Alexander [facility] SYPHILIS IGG/IGM 2024-10-21 15:42:00 Marky Alexander [facility] CBC WITH DIFF 2024-10-21 15:42:00 Jennifer Alexander [facility] HEPATITIS B SURFACE ANTIGEN 2024-10-21 15:42:00 Shanel Alexander [facility] HB ABO GROUPING 2024-10-21 15:42:00 Jennifer Alexander Mandi [facility] RHO (D) IMMUNE GLOBULIN 2024-10-21 15:42:00 León Raymundo [facility] HIV 1/2 AG-AB WITH REFLEX 2024-10-21 15:42:00 Shanel Alexander [facility] SYPHILIS IGG/IGM 2024-10-21 15:42:[address] [facility] POCT GLUCOSE (AUTOMATED) 2024-10-21 14:54:00 Anastasia Harley [facility] POCT GLUCOSE (AUTOMATED) 2024-10-21 14:54:00 Anastasia Harley [facility] POCT URINALYSIS 2024-10-11 17:31:00 Cherie Lindsey [facility] POCT URINALYSIS 2024-10-11 17:30:00 Cherie Lindsey [facility] CBC WITH DIFF 2024-10-11 16:50:00 Isaura Felipe [facility] GROUP B STREPTOCOCCUS BY PCR 2024-10-11 16:50:00 Isaura Felipe [facility] NON-STRESS TEST 2024-10-11 16:48:20 Monik Lindsey [facility] NON-STRESS TEST 2024-10-09 16:57:55 Suzette Felipe [facility] SECOND AND THIRD TRIMESTER ULTRASOUND 2024-10-09 15:20:00 Cherie Lindsey [facility] POCT URINALYSIS 2024-10-09 00:00:00 Cherie Lindsey [facility] NON-STRESS TEST 2024-09-30 14:16:35 Benito Sen [facility] POCT GLUCOSE (AUTOMATED) 2024-09-30 13:43:00 Rogelio Sen [facility] POCT URINALYSIS 2024-09-30 13:10:00 Cherie Lindsey [facility] NON-STRESS TEST 2024-09-23 14:28:09 Benito Sen [facility] NON-STRESS TEST 2024-09-18 15:09:39 Karine Holden sa [facility] NON-STRESS TEST 2024-09-11 17:18:56 Suzette Felipe [facility] POCT URINALYSIS 2024-09-11 16:46:00 Cherie Lindsey [facility] SECOND AND THIRD TRIMESTER ULTRASOUND 2024-09-11 15:19:00 Cherie Lindsey [facility] POCT URINALYSIS 2024-08-29 19:17:00 Cherie Lindsey [facility] NON-STRESS TEST 2024-08-18 13:55:35 Allen Gibbs [facility] NON-STRESS TEST 2024-08-18 13:53:51 Allen Gibbs [facility] POCT GLUCOSE (AUTOMATED) 2024-08-18 13:37:00 Allen Gibbs [facility] COMP. METABOLIC PANEL (68041) 2024-08-18 10:04:00 Allen Gibbs [facility] POCT GLUCOSE (AUTOMATED) 2024-08-18 10:03:00 Allen Gibbs [facility] POCT GLUCOSE (AUTOMATED) 2024-08-18 01:59:00 GibbsAllen [facility] ADC CLC OR LCC ONLY - WET PREP 2024-08-18 01:35:00 Chapin Allen Avila [facility] AMYLASE 2024-08-18 01:21:00 Allen Gibbs [facility] LIPASE 2024-08-18 01:21:00 Chapin [facility] COMP. METABOLIC PANEL (69140) 2024-08-18 01:21:00 Chapin Allen [facility] CBC WITH DIFF 2024-08-18 01:21:00 [facility] 2024-08-18 00:01:00 Allen Gibbs [facility] POCT GLUCOSE (AUTOMATED) 2024-08-17 23:51:00 GibbsAllen [facility] POCT URINALYSIS 2024-08-07 13:55:00 Cherie Lindsey [facility] SECOND AND THIRD TRIMESTER ULTRASOUND 2024-07-17 16:43:00 Cherie Lindsey [facility] SECOND AND THIRD TRIMESTER ULTRASOUND 2024-07-17 14:34:00 Cherie Lindsey [facility] POCT URINALYSIS 2024-06-19 13:24:00 Cherie Lindsey [facility] POCT URINALYSIS 2024-06-12 19:49:00 Cherie Lindsey [facility] POCT URINALYSIS 2024-04-16 13:24:00 Cherie Lindsey [facility] FIRST TRIMESTER ULTRASOUND 2024-04-16 13:15:00 Cherie Lindsey [facility] POCT URINALYSIS W/O SPECIFIC GRAVITY 2024-03-14 14:22:00 Cherie Lindsey [facility] POCT TEST 2024-03-14 14:19:00 Angella Lindsey [facility] POCT TEST 2024-03-14 14:19:00 Angella Lindsey [facility] GC & CHLAMYDIA AMPLIFIED ASSAY 2023-08-30 16:37:00 Cherie Lindsey [facility] CBC WITH DIFF 2023-08-30 15:20:00 Cherie Lindsey [facility] GLYCOSYLATED HEMOGLOBIN (A1C) 2023-08-30 15:20:00 Cherie Lindsey [facility] HIV 1/2 AG-AB WITH REFLEX 2023-08-30 15:20:00 Cherie Lindsey [facility] SYPHILIS IGG/IGM 2023-08-30 15:20:00 Cherie Lindsey [facility] ASSIGNMENT OF BENEFITS 2023-08-30 13:56:06 Docto r Unassigned, [place] [facility] POCT TEST 2023-08-30 00:00:00 Angella Lindsey [facility] EPIDURAL BLOOD PATCH 2023-01-17 16:33:00 Shawn Branch [facility] POCT GLUCOSE (AUTOMATED) 2023-01-17 13:36:00 Jayden Mcgee [facility] CBC WITHOUT DIFF 2023-01-17 07:40:00 Mai Farah [facility] POCT GLUCOSE (AUTOMATED) 2023-01-16 17:49:00 Jayden Mcgee [facility] POCT GLUCOSE (AUTOMATED) 2023-01-16 12:02:00 Jayden Mcgee [facility] VENOUS CORD GAS 2023-01-16 05:49:[address] [facility] [facility] CENTRAL NEURAXIAL BLOCK 2023-01-16 01:51:00 Tommie Perez [facility] POCT GLUCOSE (AUTOMATED) 2023-01-15 23:39:00 Jayden Mcgee [facility] POCT GLUCOSE (AUTOMATED) 2023-01-15 19:10:00 Jayden Mcgee [facility] HB ABO GROUPING 2023-01-15 16:43:[address] Hector [facility] [facility] RHO (D) IMMUNE GLOBULIN 2023-01-15 16:43:00 Estella Bustillos [facility] CBC WITH DIFF 2023-01-15 16:37:00 Hector Fierro [facility] HEPATITIS B SURFACE ANTIGEN 2023-01-15 16:37:00 Hector Fierro [facility] EXTRA TUBE SST 2023-01-15 16:37:00 [facility] HIV 1/2 AG-AB WITH REFLEX 2023-01-15 16:37:00 Hector Fierro [facility] SYPHILIS IGG/IGM 2023-01-15 16:37:00 Hector Fierro [facility] NON-STRESS TEST 2023-01-10 22:12:15 Benito Sen [facility] POCT GLUCOSE (AUTOMATED) 2023-01-10 21:56:00 Rogelio Sen [facility] POCT URINALYSIS 2023-01-10 21:17:00 Rogelio Sen [facility] NON-STRESS TEST 2022-12-29 21:11:02 Karine Holden sa [facility] POCT URINALYSIS 2022-12-29 20:24:00 Rogelio Sen [facility] NON-STRESS TEST 2022-12-26 18:59:39 Benito Sen [facility] CBC WITH DIFF 2022-12-26 18:05:00 Rogelio Sen [facility] POCT GLUCOSE (AUTOMATED) 2022-12-26 18:00:00 Rogelio Sen [facility] POCT URINALYSIS 2022-12-26 17:25:00 Rogelio Sen [facility] DIABETES TESTING REPORTS 2022-12-26 06:01:00 Doc tor Unassigned, [place] [facility] NON-STRESS TEST 2022-12-21 21:58:30 Benito Sen [facility] POCT URINALYSIS 2022-12-21 20:53:00 Rogelio Sen [facility] POCT GLUCOSE(AGE >30DAYS) 2022-12-14 17:59:00 Rogelio Sen [facility] POCT GLUCOSE (AUTOMATED) 2022-12-14 17:40:00 Rogelio Sen [facility] POCT URINALYSIS 2022-12-14 00:00:00 Rogelio Sen [facility] URINE CULTURE 2022-11-07 16:02:[address] [facility] POCT URINALYSIS 2022-11-07 00:00:00 Rogelio Sen [facility] POCT GLUCOSE(AGE >30DAYS) 2022-09-23 15:11:00 Rogelio Sen [facility] POCT GLUCOSE (AUTOMATED) 2022-09-23 15:04:00 Rogelio Sen [facility] POCT URINALYSIS 2022-09-23 14:23:00 Rogelio Sen [facility] POCT URINALYSIS 2022-08-04 14:46:00 Rogelio Sen [facility] POCT URINALYSIS 2022-07-15 13:20:00 Rogelio Sen [facility] DIABETES TESTING REPORTS 2022-07-15 05:01:00 Doc tor Unassigned, [place] [facility] POCT URINALYSIS 2022-06-30 13:04:00 Rogelio Sen [facility] Encounters Start Date/Time End Date/Time Encounter Type Admission Type Attending Clinicians Care Facility Care Department Encounter ID Source 2024 14:30:00 2024 14:50:34 Outpatient R ROGELIO SEN [facility] [id number] [facility] 2024 14:30:00 2024 14:50:34 Routine Visit Rogelio Sen [facility] CHEMICAL LAB SUPERVISOR [facility] 1.2.840.114 350.1.13.10 4.2.7.2.686 [id number] 107 [id number] [facility] 2024-11-05 00:00:00 2024-11-05 15:33:41 Patient Secure Rogelio Reid Armen [facility] CHEMICAL LAB SUPERVISOR [facility] & CHILD [facility] 1.2.840.114 350.1.13.10 4.2.7.2.686 [id number] [facility] 2024-11-01 00:00:00 2024-11-05 13:54:50 Patient Secure SethbrynlazaraJermanRogelio C [facility] CHEMICAL LAB SUPERVISOR [facility] CHILD [facility] 1.2.840.114 350.1.13.10 4.2.7.2.686 [id number] 107 [id number] [facility] 2024-10-29 13:00:00 2024-10-29 13:25:02 Outpatient R ROGELIO SEN [facility] [id number] [facility] 2024-10-29 13:00:00 2024-10-29 13:25:02 Nurse Visit Visit, Ang-Rmchp Nurse Rogelio Sen Visit, Joaquin-Rmchp Nurse [facility] CHEMICAL LAB SUPERVISOR [facility] CHILD [facility] 1.20.114 350.1.13.10 4.2.7.2.686 [id number] [facility] 2024-10-21 06:59:00 2024-10-23 14:15:00 Inpatient P RADHA HARLEY, RADHA NAGY [facility] [id number] [facility] 2024-10-21 06:59:00 2024-10-23 14:15:00 Hospital Encounter Radha Harley [facility] ([place] 1.2.114 350.1.13.10 4.2.7.2.686 [id number] [facility] 2024-10-21 12:55:00 2024-10-22 01:09:00 Anesthesia Event Toi Crisostomo Allison Elizabeth [facility] ([place] 1.2.840.114 350.1.13.10 4.2.7.2.686 [id number] [id number] [facility] 2024-10-21 22:30:00 2024-10-22 00:44:00 Surgery CormierMookie lopez [facility] ([facility] 1.2.840.114 350.1.13.10 4.2.7.2.686 [id number] [id number] [facility] 2024-10-18 09:30:00 2024-10-18 09:30:00 Outpatient R ROGELIO SEN [facility] [id number] [facility] 2024-10-15 14:30:00 2024-10-15 14:30:00 Outpatient R CHERIE LINDSEY [facility] [id number] [facility] 2024-10-15 00:00:00 2024-10-15 09:33:17 Telephone Isaura Felipe [facility] CHEMICAL LAB SUPERVISOR [facility] MATERNAL & CHILD [facility] 1.2840.114 350.1.13.10 4.2.7.2.686 [id number] [facility] 2024-10-11 08:15:00 2024-10-11 10:54:23 Outpatient R CHERIE LINDSEY [facility] [id number] [facility] 2024-10-11 08:15:00 2024-10-11 10:54:23 Routine Visit Cherie Lindsey [facility] CHEMICAL LAB SUPERVISOR [facility] MATERNAL & CHILD [facility] 1.2.840.114 350.1.13.10 4.2.7.2.686 [id number] [facility] 2024-10-11 00:00:00 2024-10-11 08:24:04 Telephone Rogelio Sen [facility] CHEMICAL LAB SUPERVISOR [facility] & CHILD [facility] 1.2.840.114 350.1.13.10 4.2.7.2.686 [id number] [facility] 2024-10-10 00:00:00 2024-10-10 06:43:58 Abstract Cherie Lindsey [facility] CHEMICAL LAB SUPERVISOR [facility] & CHILD [facility] 1..840.114 350.1.13.10 4.2.7.2.686 [id number] 107 [id number] [facility] 2024-10-09 10:15:00 2024-10-09 10:46:14 Routine Visit Risk, Ang-Rmchp-N p/High Rogelio Sen Risk, Ang-Rmchp-N p/High [facility] 1..840.114 350.1.13.10 4.2.7.2.686 [id number] [facility] 2024-10-09 09:00:00 2024-10-09 09:38:05 Outpatient P ROGELIO SEN [facility] [id number] [facility] 2024-10-09 09:00:00 2024-10-09 09:38:05 Lending Activities Supervisor Visit Ultrasound, Rogelio Carias [facility] 1.2.840.114 350.1.13.10 4.2.7.2.686 [id number] [facility] 2024-10-07 08:30:00 2024-10-07 08:30:00 Outpatient R ROGELIO SEN [facility] [id number] [facility] 2024-10-03 08:30:00 2024-10-03 08:30:00 Outpatient ISAURA LEBRON KRISTIN [facility] [id number] [facility] 2024-09-30 07:15:00 2024-09-30 08:02:44 Outpatient R ROGELIO SEN [facility] [id number] [facility] 2024-09-30 07:15:00 2024-09-30 08:02:44 Routine Visit Rogelio Sen [facility] CHEMICAL LAB SUPERVISOR [facility] & CHILD [facility] 1.2.840.114 350.1.13.10 4.2.7.2.686 [id number] [facility] 2024-09-26 08:30:00 2024-09-26 08:30:00 Outpatient R ROGEILO SEN [facility] [id number] [facility] 2024-09-23 08:15:00 2024-09-23 09:23:52 Outpatient R ROGELIO SEN [facility] [id number] [facility] 2024-09-23 08:15:00 2024-09-23 09:23:52 Routine Visit Rogelio Sen [facility] CHEMICAL LAB SUPERVISOR [facility] & CHILD [facility] 1..840.114 350.1.13.10 4.2.7.2.686 [id number] [facility] 2024-09-18 08:00:00 2024-09-18 08:39:33 Outpatient R ROGELIO SEN [facility] [id number] [facility] 2024-09-18 08:00:00 2024-09-18 08:39:33 Routine Visit Risk, Ang-Rmchp-N p/High Rogelio Sen Risk, Ang-Rmchp-N p/High [facility] CHEMICAL LAB SUPERVISOR [facility] & CHILD [facility] 1.2.840.114 350.1.13.10 4.2.7.2.686 [id number] [facility] 2024-09-16 15:00:00 2024-09-16 15:00:00 Outpatient R ROGELIO SEN [facility] [id number] [facility] 2024-09-12 00:00:00 2024-09-12 12:03:50 Abstract Cherie Lindsey [facility] CHEMICAL LAB SUPERVISOR [facility] MATERNAL & CHILD [facility] .840.114 350.1.13.10 4.2.7.2.686 [id number] [facility] 2024-09-11 10:30:00 2024-09-11 11:43:10 Outpatient R ISAURA FELIPE KRISTIN [facility] [id number] [facility] 2024-09-11 10:30:00 2024-09-11 11:43:10 Routine Visit Risk, Ang-Rmchp-N p/High Isaura Felipe Risk, Ang-Rmchp-N p/High [facility] CHEMICAL LAB SUPERVISOR [facility] & CHILD [facility] .840.114 350.1.13.10 4.2.7.2.686 [id number] [facility] 2024-09-11 09:15:00 2024-09-11 10:29:48 Outpatient P SONALI PORTILLO [facility] [id number] [facility] 2024-09-11 09:15:00 2024-09-11 10:29:48 Lending Activities Supervisor Visit Ultrasound, Sonali Raines [facility] CHEMICAL LAB SUPERVISOR [facility] & CHILD [facility] .840.114 350.1.13.10 4.2.7.2.686 [id number] [facility] 2024-08-29 13:00:00 2024-08-29 13:36:04 Outpatient R AKINSIPE, ROGELIO [facility] [id number] [facility] 2024-08-29 13:00:00 2024-08-29 13:36:04 Routine Visit Risk, Ang-Rmchp-N p/High Akinsipe, Rogelio C Risk, Ang-Rmchp-N p/High [facility] CHEMICAL LAB SUPERVISOR [facility] & CHILD [facility] 1.840.114 350.1.13.10 4.2.7.2.686 [id number] [facility] 2024-08-22 11:00:00 2024-08-22 11:00:00 Outpatient R [facility] [id number] [facility] 2024-08-17 18:14:00 2024-08-18 11:15:00 Outpatient X ALLEN GIBBS ALLEN GIBBS [facility] [id number] [facility] 2024-08-17 18:14:00 2024-08-18 11:15:00 Emergency Allen Gibbs Austin [facility] ..114 350.1.13.10 4.2.7.2.686 [id number] [facility] 2024-08-14 09:00:00 2024-08-14 09:00:00 Outpatient ISAURA CRUZ KRISTIN [facility] [id number] [facility] 2024-08-08 00:00:00 2024-08-08 16:48:07 Telephone Rogelio Sen [facility] CHEMICAL LAB SUPERVISOR [facility] & CHILD [facility] ..114 350.1.13.10 4.2.7.2.686 [id number] [facility] 2024-08-07 08:45:00 2024-08-07 09:29:24 Outpatient R ISAURA FELIPE KRISTIN [facility] [id number] [facility] 2024-08-07 08:45:00 2024-08-07 09:29:24 Routine Visit , Ang-Rmchp-N p/High Isaura Felipe, Ang-Rmchp-N p/High [facility] CHEMICAL LAB SUPERVISOR [facility] & CHILD [facility] .840.114 350.1.13.10 4.2.7.2.686 [id number] [facility] 2024-07-18 00:00:00 2024-07-18 06:35:50 Case Management Cherie Lindsey [facility] CHEMICAL LAB SUPERVISOR [facility] & CHILD [facility] 1..840.114 350.1.13.10 4.2.7.2.686 [id number] [facility] 2024-07-17 08:45:00 2024-07-17 09:36:25 Outpatient NOHEMI ROCA CHASEY [facility] [id number] [facility] 2024-07-17 08:45:00 2024-07-17 09:36:25 Lending Activities Supervisor Visit Ultrasound, Nohemi Black [facility] CHEMICAL LAB SUPERVISOR [facility] & CHILD [facility] 1.2.840.114 350.1.13.10 4.2.7.2.686 [id number] [facility] 2024-07-03 09:00:00 2024-07-03 09:00:00 Outpatient ISIDRO PETERS [facility] [id number] [facility] 2024-06-28 13:15:00 2024-06-28 14:28:31 Outpatient SALUD EVANS CASSIE [facility] [id number] [facility] 2024-06-28 13:15:00 2024-06-28 14:28:31 Office Visit Salud Desouza [facility] 1.2.840.114 350.1.13.10 4.2.7.2.686 [id number] [facility] 2024-06-19 08:30:00 2024-06-19 09:14:34 Outpatient ISIDRO PETERS [facility] [id number] [facility] 2024-06-19 08:30:00 2024-06-19 09:14:34 Routine Visit Risk, Joaquin-Rmchp-N p/High Isidro Holden [facility] CHEMICAL LAB SUPERVISOR [facility] & CHILD [facility] 1.2.840.114 350.1.13.10 4.2.7.2.686 [id number] [facility] 2024-06-12 14:30:00 2024-06-12 15:15:35 Outpatient ISAURA LEBRON KRISTIN [facility] [id number] [facility] 2024-06-12 14:30:00 2024-06-12 15:15:35 Office Visit Risk, Ang-Rmchp-N p/High Isaura Felipe N [facility] CHEMICAL LAB SUPERVISOR [facility] & CHILD [facility] 1.2.840.114 350.1.13.10 4.2.7.2.686 [id number] [facility] 2024-06-05 15:15:00 2024-06-05 15:15:00 Outpatient ISAURA LEBRON [facility] [id number] [facility] 2024-05-28 00:00:00 2024-05-29 08:58:19 Telephone Risk, Ang-Rmchp-N p/High [facility] CHEMICAL LAB SUPERVISOR [facility] CHILD [facility] [id number] [id number] [id number] [facility] 2024-05-22 14:45:00 2024-05-22 14:45:00 Outpatient R [facility] [id number] [facility] 2024-05-16 10:30:00 2024-05-16 10:30:00 Outpatient R [facility] [id number] [facility] 2024-05-08 10:00:00 2024-05-08 10:00:00 Outpatient R [facility] [id number] [facility] 2024-05-01 08:00:00 2024-05-01 08:00:00 Outpatient ISIDRO PETERS [facility] [id number] [facility] 2024-04-17 00:00:00 2024-04-17 06:48:22 Case Management Cherie Lindsey [facility] CHEMICAL LAB SUPERVISOR [facility] & CHILD [facility] [id number] [id number] [id number] [id number] [facility] 2024-04-16 09:30:00 2024-04-16 09:30:00 Routine Visit Rogelio Sen [facility] CHEMICAL LAB SUPERVISOR [facility] CHILD [facility] 1.2.840.114 350.1.13.10 4.2.7.2.686 [id number] [facility] 2024-04-16 08:00:00 2024-04-16 08:10:57 Outpatient P SONALI PORTILLO [facility] [id number] [facility] 2024-04-16 08:00:00 2024-04-16 08:10:57 Lending Activities Supervisor Visit Ultrasound, [facility] Sonali Portillo [facility] CHEMICAL LAB SUPERVISOR [facility] 1..840.114 350.1.13.10 4.2.7.2.686 [id number] [facility] 2024-04-11 09:45:00 2024-04-11 09:45:00 Outpatient R ROGELIO SEN [facility] [id number] [facility] 2024-04-04 00:00:00 2024-04-04 08:44:17 Telephone Cherie Lindsey [facility] CHEMICAL LAB SUPERVISOR [facility] & CHILD [facility] 1.2.840.114 350.1.13.10 4.2.7.2.686 [id number] 107 [id number] [facility] 2024-04-03 10:30:00 2024-04-03 10:30:00 Outpatient R [facility] [id number] [facility] 2024-03-28 09:15:00 2024-03-28 09:15:00 Outpatient R HOLDENISIDRO [facility] [id number] [facility] 2024-03-15 00:00:00 2024-03-15 00:00:00 Telephone Cherie Lindsey [facility] CHEMICAL LAB SUPERVISOR [facility] CHILD [facility] 1..840.114 350.1.13.10 4.2.7.2.686 [id number] [facility] 2024-03-14 09:45:00 2024-03-14 11:10:21 Initial Visit Cherie Lindsey [facility] CHEMICAL LAB SUPERVISOR [facility] 1..840.114 350.1.13.10 4.2.7.2.686 [id number] 107 [id number] [facility] 2024-03-14 09:45:00 2024-03-14 09:45:00 Outpatient R CHERIE LINDSEY [facility] [id number] [facility] 2024-03-14 09:15:00 2024-03-14 09:20:10 Outpatient R CHERIE LINDSEY [facility] [id number] [facility] 2024-03-14 09:15:00 2024-03-14 09:15:00 Outpatient R CHERIE LINDSEY [facility] [id number] [facility] 2023-11-29 13:30:00 2023-11-29 13:30:00 Outpatient R ROGELIO SEN [facility] [id number] [facility] 2023-09-01 00:00:00 2023-09-01 00:00:00 Telephone Cherie Lindsey [facility] CHEMICAL LAB SUPERVISOR [facility] 1..840.114 350.1.13.10 4.2.7.2.686 [id number] 107 [id number] [facility] 2023-08-30 09:15:00 2023-08-30 10:22:56 Outpatient R CHERIE LINDSEY [facility] [id number] [facility] 2023-08-30 09:15:00 2023-08-30 10:22:56 Office Visit Cherie Lindsey [facility] CHEMICAL LAB SUPERVISOR [facility] 1.840.114 350.1.13.10 4.2.7.2.686 [id number] 107 [id number] [facility] 2023-08-30 00:00:00 2023-08-30 00:00:00 Orders Only Doctor Unassigned, [place] [facility] 1..114 350.1.13.10 4.2.7.2.686 [id number] [facility] 2023-02-27 10:45:00 2023-02-27 10:45:00 Outpatient R CHERIE LINDSEY [facility] [id number] [facility] 2023-02-06 10:45:00 2023-02-06 11:26:43 Outpatient R ROGELIO SEN [facility] [id number] [facility] 2023-02-06 10:45:00 2023-02-06 11:26:43 Routine Visit Rogelio Sen [facility] CHEMICAL LAB SUPERVISOR [facility] 1.840.114 350.1.13.10 4.2.7.2.686 [id number] [facility] 2023-01-20 00:00:00 2023-01-20 00:00:00 Telephone Rogelio Sen [facility] CHEMICAL LAB SUPERVISOR [facility] 1.840.114 350.1.13.10 4.2.7.2.686 [id number] 107 [id number] [facility] 2023-01-15 07:32:00 2023-01-17 14:50:00 Inpatient LISA ABRAHAM SHANNON [facility] [id number] [facility] 2023-01-15 07:32:00 2023-01-17 14:50:00 Hospital Encounter Lisa Mcgee [facility] 1.2.840.114 350.1.13.10 4.2.7.2.686 [id number] [facility] 2023-01-17 09:47:00 2023-01-17 10:38:00 Anesthesia Event Yessi Branch Rakesh B [facility] 1.2.840.114 350.1.13.10 4.2.7.2.686 [id number] [facility] 2023-01-16 20:02:43 2023-01-16 20:02:43 Anesthesia Event Chris Tommie [facility] 1.2.840.114 350.1.13.10 4.2.7.2.686 [id number] [facility] 2023-01-15 18:58:00 2023-01-16 00:30:00 Anesthesia Event Chris Tommie Elyssa Allan [facility] 1.2.840.114 350.1.13.10 4.2.7.2.686 [id number] [facility] 2023-01-13 08:00:00 2023-01-13 08:00:00 Outpatient R ROGELIO SEN [facility] [id number] [facility] 2023-01-10 15:15:00 2023-01-10 15:58:49 Outpatient R ROGELIO SEN [facility] [id number] [facility] 2023-01-10 15:15:00 2023-01-10 15:58:49 Routine Visit Rogelio Sen [facility] CHEMICAL LAB SUPERVISOR [facility] 1.2.840.114 350.1.13.10 4.2.7.2.686 [id number] [facility] 2023-01-06 13:15:00 2023-01-06 13:15:00 Outpatient R ROGELIO SEN [facility] [id number] [facility] 2023-01-03 09:30:00 2023-01-03 09:30:00 Outpatient R CHERIE LINDSEY [facility] [id number] [facility] 2022-12-29 13:45:00 2022-12-29 15:01:21 Outpatient R ISIDRO HOLDEN [facility] [id number] [facility] 2022-12-29 13:45:00 2022-12-29 15:01:21 Routine Visit Risk, Ang-Rmchp-N p/High Isidro Holden [facility] CHEMICAL LAB SUPERVISOR [facility] 1.2.840.114 350.1.13.10 4.2.7.2.686 [id number] 107 [id number] [facility] 2022-12-27 00:00:00 2022-12-27 00:00:00 Telephone Rogelio Sen [facility] CHEMICAL LAB SUPERVISOR [facility] 1.2.840.114 350.1.13.10 4.2.7.2.686 [id number] 107 [id number] [facility] 2022-12-27 00:00:00 2022-12-27 00:00:00 Telephone Rogelio Sen [facility] CHEMICAL LAB SUPERVISOR [facility] 1.2.840.114 350.1.13.10 4.2.7.2.686 [id number] 107 [id number] [facility] 2022-12-26 11:00:00 2022-12-26 12:09:15 Routine Visit Rogelio Sen [facility] CHEMICAL LAB SUPERVISOR [facility] 1.2.840.114 350.1.13.10 4.2.7.2.686 [id number] 107 [id number] [facility] 2022-12-26 10:15:00 2022-12-26 10:45:00 Lending Activities Supervisor Visit Ultrasound, Joaquin-Dionicio De Souza [facility] CHEMICAL LAB SUPERVISOR [facility] 1.840.114 350.1.13.10 4.2.7.2.686 [id number] [facility] 2022-12-26 10:15:00 2022-12-26 10:44:41 Outpatient DIONICIO RAZO [facility] [id number] [facility] 2022-12-26 00:00:00 2022-12-26 00:00:00 Orders Only Doctor Unassigned, [place] [facility] 1.84.114 350.1.13.10 4.2.7.2.686 [id number] [facility] 2022-12-23 13:00:00 2022-12-23 13:00:00 Outpatient R ROGELIO SEN [facility] [id number] [facility] 2022-12-21 14:45:00 2022-12-21 15:59:05 Outpatient R ROGELIO SEN [facility] [id number] [facility] 2022-12-21 14:45:00 2022-12-21 15:59:05 Routine Visit Rogelio Sen [facility] CHEMICAL LAB SUPERVISOR [facility] 1.840.114 350.1.13.10 4.2.7.2.686 [id number] 107 [id number] [facility] 2022-12-14 11:00:00 2022-12-14 11:44:27 Outpatient R ROGELIO SEN [facility] [id number] [facility] 2022-12-14 11:00:00 2022-12-14 11:44:27 Routine Visit Rogelio Sen [facility] CHEMICAL LAB SUPERVISOR [facility] 1.840.114 350.1.13.10 4.2.7.2.686 [id number] [facility] 2022-12-14 00:00:00 2022-12-14 00:00:00 Abstract MikeySonia [facility] CHEMICAL LAB SUPERVISOR [facility] CHILD [facility] 1..840.114 350.1.13.10 4.2.7.2.686 [id number] [facility] 2022-12-05 10:30:00 2022-12-05 11:00:00 Lending Activities Supervisor Visit Ultrasound, Dionicio Lew [facility] CHEMICAL LAB SUPERVISOR [facility] .840.114 350.1.13.10 4.2.7.2.686 [id number] [facility] 2022-12-05 10:30:00 2022-12-05 10:46:35 Outpatient P DIONICIO PUTNAM [facility] [id number] [facility] 2022-12-01 09:45:00 2022-12-01 09:45:00 Outpatient R ROGELIO SEN [facility] [id number] [facility] 2022-11-22 08:00:00 2022-11-22 08:00:00 Outpatient R CHERIE LINDSEY [facility] [id number] [facility] 2022-11-10 11:00:00 2022-11-10 11:00:00 Outpatient R [facility] [id number] [facility] 2022-11-09 13:00:00 2022-11-09 13:36:18 Outpatient P LOGAN DAVIS COREY [facility] [id number] [facility] 2022-11-09 13:00:00 2022-11-09 13:30:00 Lending Activities Supervisor Visit Ultrasound, Logan Swan [facility] CHEMICAL LAB SUPERVISOR [facility] 1.840.114 350.1.13.10 4.2.7.2.686 [id number] [facility] 2022-11-07 08:30:00 2022-11-07 09:35:21 Outpatient R CHERIE LINDSEY [facility] [id number] [facility] 2022-11-07 08:30:00 2022-11-07 09:35:21 Routine Visit Provider, EsperanzaRmchp Cherie Tay [facility] CHEMICAL LAB SUPERVISOR [facility] .2.840.114 350.1.13.10 4.2.7.2.686 [id number] [facility] 2022-11-04 08:00:00 2022-11-04 08:00:00 Outpatient R ROGELIO SEN [facility] [id number] [facility] 2022-10-24 10:30:00 2022-10-24 10:30:00 Outpatient P [facility] [id number] [facility] 2022-10-11 10:45:00 2022-10-11 10:45:00 Outpatient R ROGELIO SEN [facility] [id number] [facility] 2022-09-23 09:30:00 2022-09-23 10:05:44 Outpatient R ROGELIO SEN [facility] [id number] [facility] 2022-09-23 09:30:00 2022-09-23 10:05:44 Routine Visit Rogelio Sen [facility] CHEMICAL LAB SUPERVISOR [facility] .2.840.114 350.1.13.10 4.2.7.2.686 [id number] 107 [id number] [facility] 2022-09-19 15:30:00 2022-09-19 15:30:00 Outpatient R ROGELIO SEN [facility] [id number] [facility] 2022-09-08 09:00:00 2022-09-08 09:00:00 Outpatient R ROGELIO SEN [facility] [id number] [facility] 2022-09-05 08:45:00 2022-09-05 10:00:00 Lending Activities Supervisor Visit Ultrasound, Sonali Raines [facility] CHEMICAL LAB SUPERVISOR [facility] 1..840.114 350.1.13.10 4.2.7.2.686 [id number] [facility] 2022-09-05 08:45:00 2022-09-05 08:45:00 Outpatient P SONALI PORTILLO [facility] [id number] [facility] 2022-09-05 00:00:00 2022-09-05 00:00:00 Abstract Vero Dowd [facility] CHEMICAL LAB SUPERVISOR [facility] & CHILD [facility] 1..840.114 350.1.13.10 4.2.7.2.686 [id number] [facility] 2022-08-18 08:45:00 2022-08-18 08:45:00 Outpatient R ROGELIO SEN [facility] [id number] [facility] 2022-08-04 09:30:00 2022-08-04 10:17:18 Outpatient R ROGELIO SEN [facility] [id number] [facility] 2022-08-04 09:30:00 2022-08-04 10:17:18 Routine Visit Rogeilo Sen [facility] CHEMICAL LAB SUPERVISOR [facility]ILD [facility] ..840.114 350.1.13.10 4.2.7.2.686 [id number] 107 [id number] [facility] 2022-07-15 08:15:00 2022-07-15 08:49:27 Outpatient R ROGELIO SEN [facility] [id number] [facility] 2022-07-15 08:15:00 2022-07-15 08:49:27 Routine Visit Rogelio Sen [facility] CHEMICAL LAB SUPERVISOR [facility] 1..114 350.1.13.10 4.2.7.2.686 [id number] 107 [id number] [facility] 2022-07-15 00:00:00 2022-07-15 00:00:00 Orders Only Doctor Unassigned, [place] [facility] 1..114 350.1.13.10 4.2.7.2.686 [id number] [facility] 2022-07-14 14:15:00 2022-07-14 14:15:00 Outpatient R PRASAD AVILES [facility] [id number] [facility] 2022-07-13 10:45:00 2022-07-13 10:45:00 Outpatient R ROGELIO SEN [facility] [id number] [facility] 2022-06-30 08:00:00 2022-06-30 08:35:28 Routine Visit Rogelio Sen [facility] CHEMICAL LAB SUPERVISOR [facility] .84.114 350.1.13.10 4.2.7.2.686 [id number] 107 [id number] [facility] 2022-06-30 08:00:00 2022-06-30 08:35:28 Outpatient R ROGELIO SEN [facility] [id number] [facility] 2022-06-30 00:00:00 2022-06-30 00:00:00 Orders Only Doctor Unassigned, [place] [facility] .114 350.1.13.10 4.2.7.2.686 [id number] [facility] 2022-06-28 00:00:00 2022-06-28 00:00:00 Abstract Sydney Hernandez [facility] CHEMICAL LAB SUPERVISOR [facility] CHILD [facility] 1..114 350.1.13.10 4.2.7.2.686 [id number] [facility] 2022-06-27 13:30:00 2022-06-27 14:00:00 Lending Activities Supervisor Visit 3, [facility] Us Lisa Jones [facility] 1..114 350.1.13.10 4.2.7.2.686 [id number] [facility] 2022-06-27 13:30:00 2022-06-27 13:41:54 Outpatient P LISA MCGEE SHANNON [facility] [id number] [facility] 2022-06-20 09:45:00 2022-06-20 09:45:00 Outpatient R [facility] [id number] [facility] 2022-06-16 14:30:00 2022-06-16 15:46:57 Outpatient R SDYNEY HERNANDEZ [facility] [id number] [facility] 2022-06-16 14:30:00 2022-06-16 15:46:57 [facility] SUPERVISOR [facility] 840.114 350.1.13.10 4.2.7.2.686 [id number] 107 [id number] [facility] 2022-06-13 15:30:00 2022-06-13 17:16:08 Outpatient R DIONICIO PUTNAM [facility] [id number] [facility] 2022-06-13 15:30:00 2022-06-13 16:00:00 Telemedici ne Visit Faculty, Dionicio Mendez [facility] CHEMICAL LAB SUPERVISOR [facility] .840.114 350.1.13.10 4.2.7.2.686 [id number] [facility] 2022-06-09 08:00:00 2022-06-09 08:47:57 Outpatient R ROGELIO SEN [facility] [id number] [facility] 2022-06-09 08:00:00 2022-06-09 08:47:57 Routine Visit Rogelio Sen [facility] CHEMICAL LAB SUPERVISOR [facility] 1.840.114 350.1.13.10 4.2.7.2.686 [id number] 107 [id number] [facility] 2022-06-09 08:00:00 2022-06-09 08:00:00 Outpatient R ROGELIO SEN [facility] [id number] [facility] 2022-06-09 00:00:00 2022-06-09 00:00:00 Orders Only Doctor Unassigned, [place] [facility] 1..114 350.1.13.10 4.2.7.2.686 [id number] [facility] 2022-06-03 08:15:00 2022-06-03 08:15:00 Outpatient R ROGELIO SEN [facility] [id number] [facility] 2022-05-31 00:00:00 2022-05-31 00:00:00 Telephone Rogelio Sen [facility] CHEMICAL LAB SUPERVISOR [facility] .840.114 350.1.13.10 4.2.7.2.686 [id number] 107 [id number] [facility] 2022-05-25 14:15:00 2022-05-25 15:56:44 Outpatient R ROGELIO SEN [facility] [id number] [facility] 2022-05-25 14:15:00 2022-05-25 15:56:44 Initial Visit Rogelio Sen [facility] CHEMICAL LAB SUPERVISOR [facility] 1.840.114 350.1.13.10 4.2.7.2.686 [id number] 107 [id number] [facility] 2022-05-25 13:45:00 2022-05-25 14:49:41 Outpatient R ROGELIO SEN [facility] [id number] [facility] 2022-05-25 00:00:00 2022-05-25 00:00:00 Orders Only Doctor Unassigned, [place] [facility] 1.840.114 350.1.13.10 4.2.7.2.686 [id number] [facility] 2022-03-03 00:00:00 2022-03-03 00:00:00 Telephone Nika Montero 1.840.114 350.1.13.10 4.2.7.2.686 [id number] [facility] 2021-05-31 13:30:00 2021-05-31 13:30:00 Outpatient R ROGELIO SEN [facility] [id number] [facility] 2021-05-27 15:00:00 2021-05-27 15:00:00 Outpatient R [facility] [id number] [facility] 2021-03-04 14:51:27 2021-03-04 15:28:00 Nurse Visit Visit, Ang-Rmchp Nurse Rogelio Sen [facility] CHEMICAL LAB SUPERVISOR [facility] .840.114 350.1.13.10 4.2.7.2.686 [id number] 107 [id number] [facility] 2021-03-04 15:00:00 2021-03-04 15:00:00 Outpatient R [facility] [id number] [facility] 2020-12-10 13:54:25 2020-12-10 15:31:43 Office Visit Rogelio Sen [facility] CHEMICAL LAB SUPERVISOR [facility] .840.114 350.1.13.10 4.2.7.2.686 [id number] 107 [id number] 2020-12-10 13:54:25 2020-12-10 15:31:43 Office Visit Rogelio Sen [facility] CHEMICAL LAB SUPERVISOR [facility] CHILD [facility] 1.20.114 350.1.13.10 4.2.7.2.686 [id number] [facility] 2020-12-10 14:15:00 2020-12-10 14:15:00 Outpatient R ROGELIO SEN [facility] [id number] [facility] 2020-12-10 14:15:00 2020-12-10 14:15:00 Outpatient R ROGELIO SEN [facility] [id number] [facility] 2020-09-16 14:15:00 2020-09-16 14:15:00 Outpatient R PRISCA WU [facility] [id number] [facility] 2020-09-16 13:51:07 2020-09-16 14:06:07 Office Visit Prisca Wu [facility] CHEMICAL LAB SUPERVISOR [facility] CHILD [facility] 1..114 350.1.13.10 4.2.7.2.686 [id number] 107 [id number] [facility] 2020-09-16 00:00:00 2020-09-16 00:00:00 Orders Only Doctor Unassigned, [place] [facility] 1..114 350.1.13.10 4.2.7.2.686 [id number] [facility] 2019-12-24 15:04:20 2019-12-24 15:34:13 Nurse Visit Visit, Ang-Rmchp Nurse Rogelio Sen [facility] CHEMICAL LAB SUPERVISOR [facility] 1.840.114 350.1.13.10 4.2.7.2.686 [id number] [facility] 2019-08-04 19:15:00 2019-08-06 14:44:00 Hospital Encounter Divine Jean [facility] 1.2.840.114 350.1.13.10 4.2.7.2.686 [id number] [facility] 2019-08-01 10:39:14 2019-08-01 11:38:43 Routine Visit Rogelio Sen [facility] CHEMICAL LAB SUPERVISOR [facility] 1.2.840.114 350.1.13.10 4.2.7.2.686 [id number] [facility] 2019-07-30 12:55:15 2019-07-30 14:06:16 Routine Visit Rogelio Sen [facility] CHEMICAL LAB SUPERVISOR [facility] 1.2.840.114 350.1.13.10 4.2.7.2.686 [id number] [facility] 2019-07-25 13:44:20 2019-07-25 15:02:34 Routine Visit Rogelio Sen [facility] CHEMICAL LAB SUPERVISOR [facility] 1.2.840.114 350.1.13.10 4.2.7.2.686 [id number] 107 [id number] [facility] 2019-07-22 10:51:52 2019-07-22 11:32:28 Routine Visit oRgelio Sen [facility] CHEMICAL LAB SUPERVISOR [facility] 1.2.840.114 350.1.13.10 4.2.7.2.686 [id number] 107 [id number] [facility] 2019-07-22 00:00:00 2019-07-22 00:00:00 Orders Only Doctor Unassigned, [place] [facility] 1.2.840.114 350.1.13.10 4.2.7.2.686 [id number] [facility] 2019-07-19 00:00:00 2019-07-19 00:00:00 Abstract Rogelio Sen [facility] CHEMICAL LAB SUPERVISOR [facility] 1.2.840.114 350.1.13.10 4.2.7.2.686 [id number] 107 [id number] [facility] 2019-07-17 15:35:40 2019-07-17 16:05:40 Lending Activities Supervisor Visit 3, [facility] Us Room [facility], Delilah Cormier, [facility] 1.2.840.114 350.1.13.10 4.2.7.2.686 [id number] [facility] 2019-07-16 00:00:00 2019-07-16 00:00:00 Telephone Rogelio Sen [facility] CHEMICAL [facility] SUPERVISOR [facility] 1.2.840.114 350.1.13.10 4.2.7.2.686 [id number] 107 [id number] [facility] 2019-07-15 13:25:49 2019-07-15 14:29:24 Routine Visit Rogelio Sen [facility] CHEMICAL LAB SUPERVISOR [facility] 1.2.840.114 350.1.13.10 4.2.7.2.686 [id number] [facility] 2019-07-04 00:00:00 2019-07-04 00:00:00 Nurse Triage Jorgensen, [facility] 1.2.840.114 350.1.13.10 4.2.7.2.686 [id number] [facility] 2019-07-01 12:21:42 2019-07-01 12:57:48 Routine Visit Rogelio Sen [facility] CHEMICAL LAB SUPERVISOR [facility] 1.2.840.114 350.1.13.10 4.2.7.2.686 [id number] 107 [id number] [facility] 2019-07-01 00:00:00 2019-07-01 00:00:00 Orders Only Doctor Unassigned, [place] [facility] 1.2.840.114 350.1.13.10 4.2.7.2.686 [id number] [facility] Results Test Description Test Time Test Comments Results Result Co mments Source [facility] GLUCOSE (AUTOMATED)2024-10-23 12:08:16* Test Item Value Reference Range Interpretation Comme nts POCT GLU (test code = 2611492150) 97 mg/dL 70-110 Lab Interpretation (test cod e = [id number]) Normal [facility] [facility]-22 23:30:38* Test Item Value Reference Range Interpretation Comme nts POCT GLU (test code = 8957696170) 131 mg/dL 70-110 H Lab Interpretation (test cod e = 85320-1) Abnormal [facility] GLUCOSE (AUTOMATED)2024-10-22 23:30:38* Test Item Value Reference Range Interpretation Comme nts POCT GLU (test code = 2006420161) 131 mg/dL 70-110 H Lab Interpretation (test cod e = 56670-0) Abnormal [facility] GLUCOSE (AUTOMATED)2024-10-22 16:59:10* Test Item Value Reference Range Interpretation Comme nts POCT GLU (test code = 6366920176) 195 mg/dL 70-110 H Lab Interpretation (test cod e = 94480-1) Abnormal [facility] GLUCOSE (AUTOMATED)2024-10-22 16:59:10* Test Item Value Reference Range Interpretation Comme nts POCT GLU (test code = 1521562630) 195 mg/dL 70-110 H Lab Interpretation (test cod e = 70145-3) Abnormal [facility] ONLY - SYPHILIS IGG/[id number] 15:22:17* Test Item Value Reference Range Interpretation Comme nts Syphilis IgG/IgM (test code = 22013-8) Nonreactive Nonreactive Syphilis Serology Interpretation (test code = 20003-6) No serologic evidence of syphilis. If recent exposure is suspected, retest in 2 to 4 weeks. YOBANY (test code = YOBANY) ? [facility] ONLY - SYPHILIS IGG/[id number] 15:22:17* Test Item Value Reference Range Interpretation Comme nts Syphilis IgG/IgM (test code = 46942-7) Nonreactive Nonreactive Syphilis Serology Interpretation (test code = 26174-6) No serologic evidence of syphilis. If recent exposure is suspected, retest in 2 to 4 weeks. YOBANY (test code = YOBANY) ? [facility] GLUCOSE (AUTOMATED)2024-10-22 12:28:39* Test Item Value Reference Range Interpretation Comme nts POCT GLU (test code = 2089559654) 112 mg/dL 70-110 H Lab Interpretation (test cod e = 84525-3) Abnormal [facility] GLUCOSE (AUTOMATED)2024-10-22 12:28:39* Test Item Value Reference Range Interpretation Comme nts POCT GLU (test code = 4331505878) 112 mg/dL 70-110 H Lab Interpretation (test cod e = 31282-2) [facility] [id number] 08:44:35* Test Item Value Reference Range Interpretation Comme nts RHIG CANDIDATE? (test code = 5188) No- see comment Patient is not a candidate for RhIg- Patient is Rh Positive.Performed at [facility] Laboratory Services - [facility] Blood [address] [place] [address] Free: [phone] No. [id number] [facility] [id number] 08:44:35* Test Item Value Reference Range Interpretation Comme nts RHIG CANDIDATE? (test code = 5188) No- see comment Patient is not a candidate for RhIg- Patient is Rh Positive.Performed at [facility] Laboratory Services - [facility] Blood [address] [place], [place] [address]Toll Free: [phone] No. [id number] [facility] GLUCOSE (AUTOMATED)2024-10-22 04:51:09* Test Item Value Reference Range Interpretation Comme nts POCT GLU (test code = 8570888113) 111 mg/dL 70-110 H Lab Interpretation (test cod e = 90960-3) Abnormal [facility] GLUCOSE (AUTOMATED)2024-10-22 04:51:09* Test Item Value Reference Range Interpretation Comme nts POCT GLU (test code = 6941267173) 111 mg/dL 70-110 H Lab Interpretation (test cod e = 35956-3) Abnormal [facility] GLUCOSE (AUTOMATED)2024-10-22 00:46:38* Test Item Value Reference Range Interpretation Comme nts POCT GLU (test code = 4138175441) 118 mg/dL 70-110 H Lab Interpretation (test cod e = 11537-3) Abnormal [facility] GLUCOSE (AUTOMATED)2024-10-22 00:46:38* Test Item Value Reference Range Interpretation Comme nts POCT GLU (test code = 5145292705) 118 mg/dL 70-110 H Lab Interpretation (test cod e = 48325-9) Abnormal [facility] GLUCOSE (AUTOMATED)2024-10-21 20:05:36* Test Item Value Reference Range Interpretation Comme nts POCT GLU (test code = 1986798782) 135 mg/dL 70-110 H Lab Interpretation (test cod e = 64012-2) Abnormal [facility] GLUCOSE (AUTOMATED)2024-10-21 20:05:36* Test Item Value Reference Range Interpretation Comme nts POCT GLU (test code = 2944735434) 135 mg/dL 70-110 H Lab Interpretation (test cod e = 27729-1) [facility] [id number] 19:34:00 Philipp Vázquez MD ? ? 10/21/2024 ?1:35 PM Central Neuraxial Block Date/Time: 10/21/2024 1:34 PM Performed by: Philipp Vázquez MDAuthorized by: Philip Cantrell MD ?Patient Location: OBEnd Time: 10/21/2024 1:34 PMReason for Block: OB request, Patient request, Labor analgesia, Surgical anesthesia and Post-op pain managementStaff: ?Anesthesiologist: Philip Cantrell MD ?Resident/BUILDINGS PAINTER: Philipp Vázquez MD ?Performed by: resident/CRNAPreanesthetic Checklist: patient identified, IV checked, risks andbenefits explained, monitors and equipment checked, timeout performed, pre-op evaluation, site marked and anesthesia consentProcedure: ?Type of Neuraxial: Epidural ?Epidural Description: 1st attempt ? Sterility Prep cap, drape, gloves, hand hygiene and mask ?Patient Position: sitting ?Prep: Betadine and patient draped ? ?Monitoring: heart rate, continuous pulse ox, heart rate / toco and NIBP ?Location: lumbar (1-5) ?Lumbar: L2-L3 ?Approach: midline ? ?Technique: catheter and ARACELI saline ?[place] with: landmark technique}Epidural/Spinal [place] and/or Catheter: ?Epidural/Spinal Kit: BBraun ?Needle Type: Tuohy ?Needle Gauge: 17 G ?Needle Length: 3.5 in (8.89 cm) ?Needle Insertion Depth:7 ?Catheter Type: multiport ? ?Catheter Size: 19 G ? ?Catheter at Skin Depth: 13 ?Number of Attempts: 1 ?Test Dose: negative and lidocaine 1.5% with epinephrine 1-to-200,000 ? ?Dose: 5 cc ? ?CatheterSecurement Method: surgical tape and TegadermAssessment: ?Block Outcome: a full evaluation is pending, patient comfortable, patient tolerated procedure well and no apparent complications ? ?ProcedureAssessment: patient tolerated procedure well with no complicationsNotes: ? Patient identified; pre-p rocedure verification.Patient prepped and draped in standard sterile fashion using betadine x 3Subcutaneous infiltration with 1% Lidocaine ARACELI at 7 cm; catheter secured at 13 cm with mastisol, tegaderm x2 and 3-inch clear tape.Aspiration test negative x 3Test dose negativePatient tolerated procedure well with no immediate complications Epidural expectations; PCEA explained and fall precautions given.[facility] 1/2 AG-AB WITH [id number] 18:48:59* Test Item Value Reference Range Interpretation Comme nts HIV Semi-quantitative (test code = 54739-0) 0.09 Negative YOBANY (test code = YOBANY) Non-reactive for HIV-1 antigen and HIV-1/HIV-2 antibodies. ?No laboratory evidence of HIV infection. ?Repeat in 2-4 weeks if acute HIV infection is suspected. [facility] 1/2 AG-AB WITH [id number] 18:48:59* Test Item Value Reference Range Interpretation Comme nts HIV Semi-quantitative (test code = 28661-1) 0.09 Negative YOBANY (test code = YOBANY) Non-reactive for HIV-1 antigen and HIV-1/HIV-2 antibodies. ?No laboratory evidence of HIV infection. ?Repeat in 2-4 weeks if acute HIV infection is suspected. [facility] B Surface [id number] 17:12:28 * Test Item Value Reference Range Interpretation Comme nts HBsAg Semi-Quantitative (riaz t code = 5195-3) 0.08 Negative [facility] B Surface [id number] 17:12:28 * Test Item Value Reference Range Interpretation Comme nts HBsAg Semi-Quantitative (riaz t code = 5195-3) 0.08 Negative [facility]2024-10-21 16:44:25* Test Item Value Reference Range Interpretation Comme nts AST(SGOT) (test code = 3410473447) 18 U/L 13-40 Lab Interpretation (test cod e = 89961-9) Normal [facility] CenterAlanine Amino Transferase (SGPT)2024-10-21 16:44:25* Test Item Value Reference Range Interpretation Comme nts ALTv (test code = 1742-6) 12 U/L 5-35 Lab Interpretation (test cod e = 42421-2) [facility] (Asparate Amino [facility])2024-10-21 16:44:25* Test Item Value Reference Range Interpretation Comme nts AST(SGOT) (test code = 9879685615) 18 U/L 13-40 Lab Interpretation (test cod e = 94387-9) Normal [facility] Center[facility] (SGPT)2024-10-21 16:44:25* Test Item Value Reference Range Interpretation Comme nts ALTv (test code = 1742-6) 12 U/L 5-35 Lab Interpretation (test cod e = 89044-1) Normal [facility] CenterU[facility] Acid Bvxoh4932-41-05 16:44:24* Test Item Value Reference Range Interpretation Comme nts URIC ACID (test code = 5612977501) 4.6 mg/dL 2.9-6.0 Lab Interpretation (test cod e = 91664-2) Normal [facility] Evkzbcswof9481-97-14 16:44:24* Test Item Value Reference Range Interpretation Comme nts CREATININE (test code = 2160-0) 0.46 mg/dL 0.50-1.04 L eGFR (test code = 35151-1) 135.5 mL/min/1.73m2 CKD-EPI eGFR (2020). Assuming creatinine has been stable day-to-day for at least three months, the eGFR indicates Category G1 (>= 90 mL/min/1.73 m2) Lab Interpretation (test code = 30111-8) Abnormal [facility] CenterLactate Ivsooedaekvyc5044-66-53 16:44:24* Test Item Value Reference Range Interpretation Comme nts LDH (test code = 0262571117) 158 U/L 120-246 Lab Interpretation (test cod e = 17942-7) Normal [facility] CenterU[facility] Acid Xnfbe5521-21-41 16:44:24* Test Item Value Reference Range Interpretation Comme nts URIC ACID (test code = 2372166156) 4.6 mg/dL 2.9-6.0 Lab Interpretation (test cod e = 30640-3) Normal [facility] Nkwmygakqs5675-07-10 16:44:24* Test Item Value Reference Range Interpretation Comme nts CREATININE (test code = 2160-0) 0.46 mg/dL 0.50-1.04 L eGFR (test code = 61129-3) 135.5 mL/min/1.73m2 CKD-EPI eGFR (2020). Assuming creatinine has been stable day-to-day for at least three months, the eGFR indicates Category G1 (>= 90 mL/min/1.73 m2) Lab Interpretation (test code = 21899-3) [facility]normal [facility] CenterL[facility] Cycjrraldyekn6095-01-33 16:44:24* Test Item Value Reference Range Interpretation Comme nts LDH (test code = 6675467974) 158 U/L 120-246 Lab Interpretation (test cod e = 35379-7) Normal [facility] and Screen - ONCE [id number] 16:12:00 * Test Item Value Reference Range Interpretation Comme nts ABO & RH (test code = 20) O POSITIVE IAT (test code = 1185) Negative [facility] and Screen - ONCE [id number] 16:12:00 * Test Item Value Reference Range Interpretation Comme nts ABO & RH (test code = 20) O POSITIVE IAT (test code = 1185) Negative [facility] CenterCBC with Sdsbosebqfad6783-26-86 16:08:39* Test Item Value Reference Range Interpretation Comme nts WBC (test code = 6690-2) 10.11 4.30-11.10 RBC (test code = 789-8) 4.29 3.93-5.25 HGB (test code = 718-7) 8.7 g/dL 11.6-15.0 L HCT (test code = 4544-3) 27.5 % 35.7-45.2 L MCV (test code = 787-2) 64.1 fL 80.6-95.5 L MCH (test code = 785-6) 20.3 pg 25.9-32.8 L MCHC (test code = 786-4) 31.6 g/dL 31.6-35.1 RDW-SD (test code = 02669-5) 37.2 fL 39.0-49.9 L RDW-CV (test code = 788-0) 16.4 % 12.0-15.5 H PLT (test code = 777-3) 232 166-358 MPV (test code = 57172-9) 9.7 fL 9.5-12.9 NRBC/100 WBC (test code = 7926040371) 0.0 0.0-10.0 NRBC x10^3 (test code = 1266406251) See_Comment [Automated messa ge] The system which generated this result transmitted reference range: 10*3/?L. The reference range was not used to interpret this result as normal/abnormal. GRAN MAT (NEUT) % (test code = 770-8) 62.9 % IMM GRAN % (test code = 8285904897) 0.30 % LYMPH % (test code = 736-9) 30.3 % MONO % (test code = 5905-5) 5.9 % EOS % (test code = 713-8) 0.2 % BASO % (test code = 706-2) 0.4 % GRAN MAT x10^3(ANC) (test code = 5847924275) 6.36 10*3/uL 1.88-7.09 IMM GRAN x10^3 (test code = 6096593617) 0.03 10*3/uL 0.00-0.06 LYMPH x10^3 (test code = 731-0) 3.06 10*3/uL 1.32-3.29 MONO x10^3 (test code = 742-7) 0.60 10*3/uL 0.33-0.92 EOS x10^3 (test code = 711-2) 0.03-0.39 L BASO x10^3 (test code = 704-7) 0.04 10*3/uL 0.01-0.07 Lab Interpretation (test code = 51006-9) Abnormal [facility] with Sthofzjanmky2007-24-82 16:08:39* Test Item Value Reference Range Interpretation Comme nts WBC (test code = 6690-2) 10.11 4.30-11.10 RBC (test code = 789-8) 4.29 3.93-5.25 HGB (test code = 718-7) 8.7 g/dL 11.6-15.0 L HCT (test code = 4544-3) 27.5 % 35.7-45.2 L MCV (test code = 787-2) 64.1 fL 80.6-95.5 L MCH (test code = 785-6) 20.3 pg 25.9-32.8 L MCHC (test code = 786-4) 31.6 g/dL 31.6-35.1 RDW-SD (test code = 84819-1) 37.2 fL 39.0-49.9 L RDW-CV (test code = 788-0) 16.4 % 12.0-15.5 H PLT (test code = 777-3) 232 166-358 MPV (test code = 58531-2) 9.7 fL 9.5-12.9 NRBC/100 WBC (test code = 0724615887) 0.0 0.0-10.0 NRBC x10^3 (test code = 4328570914) See_Comment [Automated [employer] ge] The system which generated this result transmitted reference range: 10*3/?L. The reference range was not used to interpret this result as normal/abnormal. GRAN MAT (NEUT) % (test code = 770-8) 62.9 % IMM GRAN % (test code = 9932178236) 0.30 % LYMPH % (test code = 736-9) 30.3 % MONO % (test code = 5905-5) 5.9 % EOS % (test code = 713-8) 0.2 % BASO % (test code = 706-2) 0.4 % GRAN MAT x10^3(ANC) (test code = 1106772675) 6.36 10*3/uL 1.88-7.09 IMM GRAN x10^3 (test code = 4022374827) 0.03 10*3/uL 0.00-0.06 LYMPH x10^3 (test code = 731-0) 3.06 10*3/uL 1.32-3.29 MONO x10^3 (test code = 742-7) 0.60 10*3/uL 0.33-0.92 EOS x10^3 (test code = 711-2) 0.03-0.39 L BASO x10^3 (test code = 704-7) 0.04 10*3/uL 0.01-0.07 Lab Interpretation (test code = 66052-7) Abnormal [facility] GLUCOSE (AUTOMATED)2024-10-21 14:55:06* Test Item Value Reference Range Interpretation Comme nts POCT GLU (test code = 5285480725) 103 mg/dL 70-110 Lab Interpretation (test cod e = 30966-6) Normal [facility] GLUCOSE (AUTOMATED)2024-10-21 14:55:06* Test Item Value Reference Range Interpretation Comme nts POCT GLU (test code = 0078376577) 103 mg/dL 70-110 Lab Interpretation (test cod e = 76992-6) Normal [facility] with Bayd0715-04-32 06:14:58* Test Item Value Reference Range Interpretation Comme nts WBC (test code = 6690-2) 8.80 4.30-11.10 RBC (test code = 789-8) 4.12 3.93-5.25 HGB (test code = 718-7) 8.5 g/dL 11.6-15.0 L HCT (test code = 4544-3) 28.3 % 35.7-45.2 L MCV (test code = 787-2) 68.7 fL 80.6-95.5 L MCH (test code = 785-6) 20.6 pg 25.9-32.8 L MCHC (test code = 786-4) 30.0 g/dL 31.6-35.1 L RDW-SD (test code = 26386-7) 38.3 fL 39.0-49.9 L RDW-CV (test code = 788-0) 15.6 % 12.0-15.5 H PLT (test code = 777-3) 238 166-358 MPV (test code = 55095-9) 10.8 fL 9.5-12.9 NRBC/100 WBC (test code = 4879305117) 0.0 0.0-10.0 NRBC x10^3 (test code = 6703343802) See_Comment [Automated messa ge] The system which generated this result transmitted reference range: 10*3/?L. The reference range was not used to interpret this result as normal/abnormal. GRAN MAT (NEUT) % (test code = 770-8) 60.8 % IMM GRAN % (test code = 8688098166) 0.70 % LYMPH % (test code = 736-9) 30.5 % MONO % (test code = 5905-5) 7.2 % EOS % (test code = 713-8) 0.3 % BASO % (test code = 706-2) 0.5 % GRAN MAT x10^3(ANC) (test code = 9982540014) 5.36 10*3/uL 1.88-7.09 IMM GRAN x10^3 (test code = 0617411747) 0.06 10*3/uL 0.00-0.06 LYMPH x10^3 (test code = 731-0) 2.68 10*3/uL 1.32-3.29 MONO x10^3 (test code = 742-7) 0.63 10*3/uL 0.33-0.92 EOS x10^3 (test code = 711-2) 0.03 10*3/uL 0.03-0.39 BASO x10^3 (test code = 704-7) 0.04 10*3/uL 0.01-0.07 Lab Interpretation (test code = 39303-4) Abnormal [facility] URINALYSIS W SPECIFIC [id number] 17:31:00* Test Item Value Reference Range Interpretation Comme nts POCT U SP GRAV (test code = 3255) . 1.005-1.025 POCT PH U (test code = 3254) . 5-8 POCT U LEUK EST (test code = 3263) . Negative - N egative POCT U NIT (test code = 3262) . Negative - Negati ve POCT U PROT (test code = 3259) . Negative - Negat susan POCT U GLU (test code = 3256) . Negative - Negati ve POCT U KETONE (test code = 3258) . Negative - Neg ative POCT U UROBILI (test code = 3260) . 0.2-1 POCT U BILI (test code = 3261) . Negative - Negat susan POCT U BLD (test code = 3257) . Negative - Negati ve POCT U COLOR (test code = 3266) . POCT U APPEAR (test code = 3267) ...... [facility] URINALYSIS W SPECIFIC [id number] 17:31:00* Test Item Value Reference Range Interpretation Comme nts POCT U SP GRAV (test code = 3255) . 1.005-1.025 POCT PH U (test code = 3254) 5 mg/dl 5-8 POCT U LEUK EST (test code = 3263) 1+ Negative - Negative POCT U NIT (test code = 3262) Neg Negative - Negati ve POCT U PROT (test code = 3259) 1+ Negative - Negat susan POCT U GLU (test code = 3256) 500 Negative - Negati ve POCT U KETONE (test code = 3258) 2+ Negative - Neg ative POCT U UROBILI (test code = 3260) . 0.2-1 POCT U BILI (test code = 3261) . Negative - Negat susan POCT U BLD (test code = 3257) Trace Negative - Negati ve POCT U COLOR (test code = 3266) . POCT U APPEAR (test code = 3267) ... [facility] URINALYSIS W SPECIFIC [id number] 16:10:00* Test Item Value Reference Range Interpretation Comme nts POCT U SP GRAV (test code = 3255) . 1.005-1.025 POCT PH U (test code = 3254) 5 mg/dl 5-8 POCT U LEUK EST (test code = 3263) 1+ Negative - Negative POCT U NIT (test code = 3262) neg Negative - Negati ve POCT U PROT (test code = 3259) trace Negative - Negat susan POCT U GLU (test code = 3256) 100 Negative - Negati ve POCT U KETONE (test code = 3258) 2+ Negative - Neg ative POCT U UROBILI (test code = 3260) . 0.2-1 POCT U BILI (test code = 3261) . Negative - Negat susan POCT U BLD (test code = 3257) neg Negative - Negati ve POCT U COLOR (test code = 3266) . POCT U APPEAR (test code = 3267) . [facility] GLUCOSE (AUTOMATED)2024-09-30 13:45:17* Test Item Value Reference Range Interpretation Comme nts POCT GLU (test code = 1389096917) 143 mg/dL 70-110 H Lab Interpretation (test cod e = 12326-8) Abnormal [facility] URINALYSIS W SPECIFIC [id number] 13:10:00* Test Item Value Reference Range Interpretation Comme nts POCT U SP GRAV (test code = 3255) . 1.005-1.025 POCT PH U (test code = 3254) . 5-8 POCT U LEUK EST (test code = 3263) . Negative - N egative POCT U NIT (test code = 3262) . Negative - Negati ve POCT U PROT (test code = 3259) trace Negative - Negat susan POCT U GLU (test code = 3256) 1000 Negative - Negati ve POCT U KETONE (test code = 3258) . Negative - Neg ative POCT U UROBILI (test code = 3260) . 0.2-1 POCT U BILI (test code = 3261) . Negative - Negat susan POCT U BLD (test code = 3257) . Negative - Negati ve POCT U COLOR (test code = 3266) . POCT U APPEAR (test code = 3267) [facility] URINALYSIS W SPECIFIC [id number] 16:46:00* Test Item Value Reference Range Interpretation Comme nts POCT U SP GRAV (test code = 3255) . 1.005-1.025 POCT PH U (test code = 3254) 6 mg/dl 5-8 POCT U LEUK EST (test code = 3263) Trace Negative - Negative POCT U NIT (test code = 3262) Neg Negative - Negati ve POCT U PROT (test code = 3259) Trace Negative - Negat susan POCT U GLU (test code = 3256) 2+ Negative - Negati ve POCT U KETONE (test code = 3258) None Negative - Neg ative POCT U UROBILI (test code = 3260) . 0.2-1 POCT U BILI (test code = 3261) . Negative - Negat susan POCT U BLD (test code = 3257) Trace Negative - Negati ve POCT U COLOR (test code = 3266) . POCT U APPEAR (test code = 3267) [facility] URINALYSIS W SPECIFIC [id number] 19:17:00* Test Item Value Reference Range Interpretation Comme nts POCT U SP GRAV (test code = 3255) . 1.005-1.025 POCT PH U (test code = 3254) 7 mg/dl 5-8 POCT U LEUK EST (test code = 3263) traace Negative - Negative POCT U NIT (test code = 3262) neg Negative - Negati ve POCT U PROT (test code = 3259) trace Negative - Negat susan POCT U GLU (test code = 3256) 250 Negative - Negati ve POCT U KETONE (test code = 3258) neg Negative - Neg ative POCT U UROBILI (test code = 3260) . 0.2-1 POCT U BILI (test code = 3261) . Negative - Negat susan POCT U BLD (test code = 3257) neg Negative - Negati ve POCT U COLOR (test code = 3266) POCT U APPEAR (test code = 3267) [facility] 13:44:50* Test Item Value Reference Range Interpretation Comme nts POCT GLU (test code = 4528077199) 126 mg/dL 70-110 H Lab Interpretation (test cod e = 07204-3) Abnormal [facility]. Metabolic Panel (84265)2024-08-18 11:46:55* Test Item Value Reference Range Interpretation Comme nts NA (test code = 5231240970) 134 mmol/L 135-145 L K (test code = 0878049934) 3.3 mmol/L 3.5-5.0 L CL (test code = 6203072872) 108 mmol/L 98-108 CO2 TOTAL (test code = 5733092500) 19 mmol/L 23-31 L AGAP (test code = 4529575548) 7 2-16 BUN (test code = 6099928937) 5 mg/dL 7-23 L GLUCOSE (test code = 3772550679) 135 mg/dL 70-110 H CREATININE (test code = 2160-0) 0.48 mg/dL 0.50-1.04 L TOTAL BILI (test code = 5128242826) 0.7 mg/dL 0.1-1.1 CALCIUM (test code = 5471006263) 7.7 mg/dL 8.6-10.6 L T PROTEIN (test code = 8030380892) 6.2 g/dL 6.3-8.2 L ALBUMIN (test code = 6974488943) 3.0 g/dL 3.5-5.0 L ALK PHOS (test code = 7567227548) 72 U/L 34-122 ALTv (test code = 1742-6) 10 U/L 5-35 AST(SGOT) (test code = 4775158260) 18 U/L 13-40 eGFR (test code = 02008-4) 134.2 mL/min/1.73m2 CKD-EPI eGFR (2020). Assuming creatinine has been stable day-to-day for at least three months, the eGFR indicates Category G1 (>= 90 mL/min/1.73 m2) Lab Interpretation (test code = 31287-8) [facility]24-[facility]18 10:03:58* Test Item Value Reference Range Interpretation Comme [facility] POCT GLU (test code = 1929546088) 136 mg/dL 70-110 H Lab Interpretation (test cod e = 10316-0) [facility]normal [facility] with Jhyt0258-69-76 02:08:53* Test Item Value Reference Range Interpretation Comme [facility] WBC (test code = 6690-2) 11.38 4.30-11.10 H RBC (test code = 789-8) 4.66 3.93-5.25 HGB (test code = 718-7) 10.8 g/dL 11.6-15.0 L HCT (test code = 4544-3) 34.4 % 35.7-45.2 L MCV (test code = 787-2) 73.8 fL 80.6-95.5 L MCH (test code = 785-6) 23.2 pg 25.9-32.8 L MCHC (test code = 786-4) 31.4 g/dL 31.6-35.1 L RDW-SD (test code = 91443-5) 38.1 fL 39.0-49.9 L RDW-CV (test code = 788-0) 14.5 % 12.0-15.5 PLT (test code = 777-3) 284 166-358 MPV (test code = 23065-4) 9.5 fL 9.5-12.9 NRBC/100 WBC (test code = 2252514400) 0.0 0.0-10.0 NRBC x10^3 (test code = 5192026924) See_Comment [Automated messa ge] The system which generated this result transmitted reference range: 10*3/?L. The reference range was not used to interpret this result as normal/abnormal. GRAN MAT (NEUT) % (test code = 770-8) 85.0 % IMM GRAN % (test code = 2305293642) 0.60 % LYMPH % (test code = 736-9) 9.0 % MONO % (test code = 5905-5) 4.9 % EOS % (test code = 713-8) 0.1 % BASO % (test code = 706-2) 0.4 % GRAN MAT x10^3(ANC) (test code = 7329285069) 9.68 10*3/uL 1.88-7.09 H IMM GRAN x10^3 (test code = 7920741883) 0.07 10*3/uL 0.00-0.06 H LYMPH x10^3 (test code = 731-0) 1.02 10*3/uL 1.32-3.29 L MONO x10^3 (test code = 742-7) 0.56 10*3/uL 0.33-0.92 EOS x10^3 (test code = 711-2) 0.03-0.39 L BASO x10^3 (test code = 704-7) 0.04 10*3/uL 0.01-0.07 Lab Interpretation (test code = 97649-3) [facility][id number])2024-08-18 02:08:28* Test Item Value Reference Range Interpretation Comme nts NA (test code = 1255509059) 133 mmol/L 135-145 L K (test code = 1986466826) 3.8 mmol/L 3.5-5.0 CL (test code = 3587389536) 106 mmol/L 98-108 CO2 TOTAL (test code = 2857586464) 14 mmol/L 23-31 L AGAP (test code = 3498494876) 13 2-16 BUN (test code = 8058828077) 9 mg/dL 7-23 GLUCOSE (test code = 2647821224) 142 mg/dL 70-110 H CREATININE (test code = 2160-0) 0.41 mg/dL 0.50-1.04 L TOTAL BILI (test code = 1014399356) 0.7 mg/dL 0.1-1.1 CALCIUM (test code = 8257324998) 8.7 mg/dL 8.6-10.6 T PROTEIN (test code = 1642814724) 7.4 g/dL 6.3-8.2 ALBUMIN (test code = 8135678956) 4.1 g/dL 3.5-5.0 ALK PHOS (test code = 5106957546) 95 U/L 34-122 ALTv (test code = 1742-6) 12 U/L 5-35 AST(SGOT) (test code = 5583995783) 13 U/L 13-40 eGFR (test code = 04571-9) 139.4 mL/min/1.73m2 CKD-EPI eGFR (2020). Assuming creatinine has been stable day-to-day for at least three months, the eGFR indicates Category G1 (>= 90 mL/min/1.73 m2) Lab Interpretation (test code = 47073-3) [facility] Test Item Value Reference Range Interpretation Comme nts LIPASE (test code = 5257414688) 50 U/L 0-220 Lab Interpretation (test cod e = 69421-6) [facility] 02:07:28* Test Item Value Reference Range Interpretation Comme nts BRENDA (test code = 5117293098) 44 U/L 35-110 Lab Interpretation (test cod e = 15593-3) Normal [facility] GLUCOSE (AUTOMATED)2024-08-18 01:59:55* Test Item Value Reference Range Interpretation Comme nts POCT GLU (test code = 0546964826) 123 mg/dL 70-110 H Lab Interpretation (test cod e = 99527-7) Abnormal [facility] GLUCOSE (AUTOMATED)2024-08-17 23:51:50* Test Item Value Reference Range Interpretation Comme nts POCT GLU (test code = 4031917885) 163 mg/dL 70-110 H Lab Interpretation (test cod e = 48826-1) Abnormal [facility] URINALYSIS W SPECIFIC [id number] 13:56:00* Test Item Value Reference Range Interpretation Comme nts POCT U SP GRAV (test code = 3255) . 1.005-1.025 POCT PH U (test code = 3254) 6 mg/dl 5-8 POCT U LEUK EST (test code = 3263) 1+ Negative - Negative POCT U NIT (test code = 3262) neg Negative - Negati ve POCT U PROT (test code = 3259) trace Negative - Negat susan POCT U GLU (test code = 3256) 50 Negative - Negati ve POCT U KETONE (test code = 3258) neg Negative - Neg ative POCT U UROBILI (test code = 3260) . 0.2-1 POCT U BILI (test code = 3261) . Negative - Negat susan POCT U BLD (test code = 3257) neg Negative - Negati ve POCT U COLOR (test code = 3266) . POCT U APPEAR (test code = 3267) . [facility] URINALYSIS W SPECIFIC [id number] 13:24:00* Test Item Value Reference Range Interpretation Comme nts POCT U SP GRAV (test code = 3255) . 1.005-1.025 POCT PH U (test code = 3254) 6 mg/dl 5-8 POCT U LEUK EST (test code = 3263) 1+ Negative - Negative POCT U NIT (test code = 3262) Neg Negative - Negati ve POCT U PROT (test code = 3259) Trace Negative - Negat susan POCT U GLU (test code = 3256) Nml Negative - Negati ve POCT U KETONE (test code = 3258) None Negative - Neg ative POCT U UROBILI (test code = 3260) . 0.2-1 POCT U BILI (test code = 3261) . Negative - Negat susan POCT U BLD (test code = 3257) Trace Negative - Negati ve POCT U COLOR (test code = 3266) POCT U APPEAR (test code = 3267) [facility] URINALYSIS W SPECIFIC [id number] 19:49:00* Test Item Value Reference Range Interpretation Comme nts POCT U SP GRAV (test code = 3255) . 1.005-1.025 POCT PH U (test code = 3254) 5 mg/dl 5-8 POCT U LEUK EST (test code = 3263) Trace Negative - Negative POCT U NIT (test code = 3262) Neg Negative - Negati ve POCT U PROT (test code = 3259) Trace Negative - Negat susan POCT U GLU (test code = 3256) Nml Negative - Negati ve POCT U KETONE (test code = 3258) 1+ Negative - Neg ative POCT U UROBILI (test code = 3260) . 0.2-1 POCT U BILI (test code = 3261) . Negative - Negat susan POCT U BLD (test code = 3257) Trace Negative - Negati ve POCT U COLOR (test code = 3266) POCT U APPEAR (test code = 3267) [facility] URINALYSIS W SPECIFIC [id number] 13:24:00* Test Item Value Reference Range Interpretation Comme nts POCT U SP GRAV (test code = 3255) . 1.005-1.025 POCT PH U (test code = 3254) . 5-8 POCT U LEUK EST (test code = 3263) . Negative - N egative POCT U NIT (test code = 3262) . Negative - Negati ve POCT U PROT (test code = 3259) trace Negative - Negat susan POCT U GLU (test code = 3256) neg Negative - Negati ve POCT U KETONE (test code = 3258) . Negative - Neg ative POCT U UROBILI (test code = 3260) . 0.2-1 POCT U BILI (test code = 3261) . Negative - Negat susan POCT U BLD (test code = 3257) . Negative - Negati ve POCT U COLOR (test code = 3266) POCT U APPEAR (test code = 3267) [facility] Urinalysis w/o Specific [id number] 14:22:00* Test Item Value Reference Range Interpretation Comme nts POCT PH U (test code = 3254) 6 mg/dl 5-8 POCT U LEUK EST (test code = 3263) 2+ Negative - Negative POCT U NIT (test code = 3262) Neg Negative - Negati ve POCT U PROT (test code = 3259) Trace Negative - Negat susan POCT U GLU (test code = 3256) Nml Negative - Negati ve POCT U KETONE (test code = 3258) 2+ Negative - Neg ative POCT U BLD (test code = 3257) Neg Negative - Negati ve [facility] Urinalysis w/o Specific [id number] 14:22:00* Test Item Value Reference Range Interpretation Comme nts POCT PH U (test code = 3254) 6 mg/dl 5-8 POCT U LEUK EST (test code = 3263) 2+ Negative - Negative POCT U NIT (test code = 3262) Neg Negative - Negati ve POCT U PROT (test code = 3259) Trace Negative - Negat susan POCT U GLU (test code = 3256) Nml Negative - Negati ve POCT U KETONE (test code = 3258) 2+ Negative - Neg ative POCT U BLD (test code = 3257) Neg Negative - Negati ve [facility] [id number] 14:19:00* Test Item Value Reference Range Interpretation Comme nts POCT PREG (test code = 1605) Positive On board controls acceptable with C Line (test code = 3574) Yes POCT PREG LOT # (test code = 3575) POCT PREG TEST DATE ( test code = 3576) [facility] [id number] 14:19:00* Test Item Value Reference Range Interpretation Comme nts POCT PREG (test code = 1605) Positive On board controls acceptable with C Line (test code = 3574) Yes POCT PREG LOT # (test code = 3575) POCT PREG TEST DATE ( test code = 3576) [facility]A1C)2023-08-31 17:23:49* Test Item Value Reference Range Interpretation Comme nts HGB A1C (test code = 4548-4) 6.4 % 4.0-5.7 H YOBANY (test code = YOBANY) Reference RangesNormal: <5.7%Prediabetes: 5.7 - 6.4%Diabetes: > 6.5% Lab Interpretation (test code = 38191-9) [facility]normal [facility]GL[facility] (A1C)2023-08-31 17:23:49* Test Item Value Reference Range Interpretation Comme nts HGB A1C (test code = 4548-4) 6.4 % 4.0-5.7 H YOBANY (test code = YOBANY) Reference RangesNormal: <5.7%Prediabetes: 5.7 - 6.4%Diabetes: > 6.5% Lab Interpretation (test code = 91958-2) Abnormal [facility] ONLY - SYPHILIS [id number] 17:04:50* Test Item Value Reference Range Interpretation Comme nts Syphilis IgG/IgM (test code = 07610-3) Non-reactive Non-reactive YOBANY (test code = YOBANY) Non-reactive - No serologic evidence of T. pallidum infection. Cannot exclude incubating or early syphilis. Submit a second specimen in 2-4 weeks if syphilis is clinically suspected. Equivocal - Further testing to follow. Reactive - Further testing to follow. Lab Interpretation (test code = 96731-1) Normal [facility] ONLY - SYPHILIS [id number] 17:04:50* Test Item Value Reference Range Interpretation Comme nts Syphilis IgG/IgM (test code = 37289-7) Non-reactive Non-reactive YOBANY (test code = YOBANY) Non-reactive - No serologic evidence of T. pallidum infection. Cannot exclude incubating or early syphilis. Submit a second specimen in 2-4 weeks if syphilis is clinically suspected. Equivocal - Further testing to follow. Reactive - Further testing to follow. Lab Interpretation (test code = 94533-7) Normal [facility] WITH [id number] 07:40:39* Test Item Value Reference Range Interpretation Comme nts WBC (test code = 6690-2) 11.87 See_Comment H [Automated [employer] ge] The system which generated this result transmitted reference range: 4.30 - 11.10 10*3/?L. The reference range was not used to interpret this result as normal/abnormal. RBC (test code = 789-8) 4.81 See_Comment [Automated messa ge] The system which generated this result transmitted reference range: 3.93 - 5.25 10*6/?L. The reference range was not used to interpret this result as normal/abnormal. HGB (test code = 718-7) 10.5 g/dL 11.6-15.0 L HCT (test code = 4544-3) 34.9 % 35.7-45.2 L MCV (test code = 787-2) 72.6 fL 80.6-95.5 L MCH (test code = 785-6) 21.8 pg 25.9-32.8 L MCHC (test code = 786-4) 30.1 g/dL 31.6-35.1 L RDW-SD (test code = 95474-2) 40.8 fL 39.0-49.9 RDW-CV (test code = 788-0) 15.8 % 12.0-15.5 H PLT (test code = 777-3) 436 See_Comment H [Automated [employer]] The system which generated this result transmitted reference range: 166 - 358 10*3/?L. The reference range was not used to interpret this result as normal/abnormal. MPV (test code = 14544-0) 10.5 fL 9.5-12.9 NRBC/100 WBC (test code = 9764774152) 0.0 See_Comment [Automated [employer] ssage] The system which generated this result transmitted reference range: 0.0 - 10.0 /100 WBCs. The reference range was not used to interpret this result as normal/abnormal. NRBC x10^3 (test code = 3834345312) See_Comment [Automated [employer] ge] The system which generated this result transmitted reference range: 10*3/?L. The reference range was not used to interpret this result as normal/abnormal. GRAN MAT (NEUT) % (test code = 770-8) 53.9 % IMM GRAN % (test code = 1617850610) 0.70 % LYMPH % (test code = 736-9) 37.0 % MONO % (test code = 5905-5) 6.8 % EOS % (test code = 713-8) 0.9 % BASO % (test code = 706-2) 0.7 % GRAN MAT x10^3(ANC) (test code = 9644611992) 6.40 10*3/uL 1.88-7.09 IMM GRAN x10^3 (test code = 4783284971) 0.08 10*3/uL 0.00-0.06 H LYMPH x10^3 (test code = 731-0) 4.39 10*3/uL 1.32-3.29 H MONO x10^3 (test code = 742-7) 0.81 10*3/uL 0.33-0.92 EOS x10^3 (test code = 711-2) 0.11 10*3/uL 0.03-0.39 BASO x10^3 (test code = 704-7) 0.08 10*3/uL 0.01-0.07 H Lab Interpretation (test code = 53249-2) Abnormal [facility] WITH [id number] 07:40:39* Test Item Value Reference Range Interpretation Comme nts WBC (test code = 6690-2) 11.87 See_Comment H [Automated messa ge] The system which generated this result transmitted reference range: 4.30 - 11.10 10*3/?L. The reference range was not used to interpret this result as normal/abnormal. RBC (test code = 789-8) 4.81 See_Comment [Automated messa ge] The system which generated this result transmitted reference range: 3.93 - 5.25 10*6/?L. The reference range was not used to interpret this result as normal/abnormal. HGB (test code = 718-7) 10.5 g/dL 11.6-15.0 L HCT (test code = 4544-3) 34.9 % 35.7-45.2 L MCV (test code = 787-2) 72.6 fL 80.6-95.5 L MCH (test code = 785-6) 21.8 pg 25.9-32.8 L MCHC (test code = 786-4) 30.1 g/dL 31.6-35.1 L RDW-SD (test code = 26689-9) 40.8 fL 39.0-49.9 RDW-CV (test code = 788-0) 15.8 % 12.0-15.5 H PLT (test code = 777-3) 436 See_Comment H [Automated messa ge] The system which generated this result transmitted reference range: 166 - 358 10*3/?L. The reference range was not used to interpret this result as normal/abnormal. MPV (test code = 19577-8) 10.5 fL 9.5-12.9 NRBC/100 WBC (test code = 4220512922) 0.0 See_Comment [Automated me ssage] The system which generated this result transmitted reference range: 0.0 - 10.0 /100 WBCs. The reference range was not used to interpret this result as normal/abnormal. NRBC x10^3 (test code = 6164559473) See_Comment [Automated messa ge] The system which generated this result transmitted reference range: 10*3/?L. The reference range was not used to interpret this result as normal/abnormal. GRAN MAT (NEUT) % (test code = 770-8) 53.9 % IMM GRAN % (test code = 4212139231) 0.70 % LYMPH % (test code = 736-9) 37.0 % MONO % (test code = 5905-5) 6.8 % EOS % (test code = 713-8) 0.9 % BASO % (test code = 706-2) 0.7 % GRAN MAT x10^3(ANC) (test code = 8106951521) 6.40 10*3/uL 1.88-7.09 IMM GRAN x10^3 (test code = 8064772240) 0.08 10*3/uL 0.00-0.06 H LYMPH x10^3 (test code = 731-0) 4.39 10*3/uL 1.32-3.29 H MONO x10^3 (test code = 742-7) 0.81 10*3/uL 0.33-0.92 EOS x10^3 (test code = 711-2) 0.11 10*3/uL 0.03-0.39 BASO x10^3 (test code = 704-7) 0.08 10*3/uL 0.01-0.07 H Lab Interpretation (test code = 71382-2) Abnormal [facility] 1/2 AG-AB WITH [id number] 06:52:11* Test Item Value Reference Range Interpretation Comme [facility] HIV Semi-quantitative (test code = 71239-2) 0.08 Negative YOBANY (test code = YOBANY) Non-reactive for HIV-1 antigen and HIV-1/HIV-2 antibodies. ?No laboratory evidence of HIV infection. ?Repeat in 2-4 weeks if acute HIV infection is suspected. [facility] 1/2 AG-AB WITH [id number] 06:52:11* Test Item Value Reference Range Interpretation Comme nts HIV Semi-quantitative (test code = 55616-9) 0.08 Negative YOBANY (test code = YOBANY) Non-reactive for HIV-1 antigen and HIV-1/HIV-2 antibodies. ?No laboratory evidence of HIV infection. ?Repeat in 2-4 weeks if acute HIV infection is suspected. [facility] [id number] 14:28:00* Test Item Value Reference Range Interpretation Comme nts POCT PREG (test code = 1605) Negative On board controls acceptable with C Line (test code = 3574) Yes POCT PREG LOT # (test code = 3575) POCT PREG TEST DATE ( test code = 3576) [facility] [id number] 14:28:00* Test Item Value Reference Range Interpretation Comme nts POCT PREG (test code = 1605) Negative On board controls acceptable with C Line (test code = 3574) Yes POCT PREG LOT # (test code = 3575) POCT PREG TEST DATE ( test code = 3576) [facility] GLUCOSE (AUTOMATED)2023-01-17 13:41:52* Test Item Value Reference Range Interpretation Comme nts POCT GLU (test code = 9897483698) 92 mg/dL 70-110 Lab Interpretation (test cod e = 61074-5) Normal [facility] GLUCOSE (AUTOMATED)2023-01-16 17:53:26* Test Item Value Reference Range Interpretation Comme nts POCT GLU (test code = 3767177864) 121 mg/dL 70-110 H Lab Interpretation (test cod e = 86919-6) [facility] [id number] 15:47:35* Test Item Value Reference Range Interpretation Comme nts Syphilis IgG/IgM (test code = 46490-5) Non-reactive Non-reactive YOBANY (test code = YOBANY) Non-reactive - No serologic evidence of T. pallidum infection. Cannot exclude incubating or early syphilis. Submit a second specimen in 2-4 weeks if syphilis is clinically suspected. Equivocal - Further testing to follow. Reactive - Further testing to follow. Lab Interpretation (test code = 61677-0) Normal [facility] GLUCOSE (AUTOMATED)2023-01-16 12:03:52* Test Item Value Reference Range Interpretation Comme nts POCT GLU (test code = 5358813793) 130 mg/dL 70-110 H Lab Interpretation (test cod e = 32481-2) [facility]normal [facility] IMMUNE [id number] 10:56:10* Test Item Value Reference Range Interpretation Comme nts RHIG CANDIDATE? (test code = 5055) No- see comment Patient is not a candidate for RhIg- Patient is Rh Positive.Performed at [facility] Laboratory Services - [facility] Blood [address] [address]Ixqu Free: [phone] No. [id number] [facility] Center[facility]TER[facility] CORD [id number] 06:08:29* Test Item Value Reference Range Interpretation Comme nts BASE EXCESS, CORD (test code = 4835085625) -4.2 mEq/L QUES AC PH, CORD (BEAKER) (test code = 1482410325) 7.30 7.18-7.38 PC02, CORD (test code = 9719011732) 46 See_Comment [Automated messa ge] The system which generated this result transmitted reference range: 32 - 66 mmHg. The reference range was not used to interpret this result as normal/abnormal. PO2, CORD (test code = 0343559432) 17 See_Comment [Automated messa ge] The system which generated this result transmitted reference range: 10 - 30 mmHg. The reference range was not used to interpret this result as normal/abnormal. BICARBONATE, CORD (test code = 2134830703) 22 See_Comment [Automated messa ge] The system which generated this result transmitted reference range: 17 - 27 mEq/L. The reference range was not used to interpret this result as normal/abnormal. [facility]ORD [id number] 06:06:03* Test Item Value Reference Range Interpretation Comme nts VENOUS BASE EXCESS, CORD (test code = 9253084610) -1.0 mEq/L VENOUS PH, CORD (test code = 6979673015) 7.41 7.25-7.45 VENOUS PC02, CORD (test code = 9344614081) 37 See_Comment [Automated messa ge] The system which generated this result transmitted reference range: 27 - 49 mmHg. The reference range was not used to interpret this result as normal/abnormal. VENOUS PO2, CORD (test code = 5996067913) 29 See_Comment [Automated me ssage] The system which generated this result transmitted reference range: 17 - 41 mmHg. The reference range was not used to interpret this result as normal/abnormal. VENOUS BICARBONATE, CORD (test code = 1204410459) 23 See_Comment QUES [Automated message] The system which generated this result transmitted reference range: 12 - 29 mEq/L. The reference range was not used to interpret this result as normal/abnormal. [facility] GLUCOSE (AUTOMATED)2023-01-15 23:51:11* Test Item Value Reference Range Interpretation Comme nts POCT GLU (test code = 5253460976) 87 mg/dL 70-110 Lab Interpretation (test cod e = 33260-1) Normal [facility] GLUCOSE (AUTOMATED)2023-01-15 19:11:47* Test Item Value Reference Range Interpretation Comme nts POCT GLU (test code = 8101392237) 121 mg/dL 70-110 H Lab Interpretation (test cod e = 33488-0) [facility]normal [facility] WITH [id number] 18:30:11* Test Item Value Reference Range Interpretation Comme nts HIV Semi-quantitative (test code = 00361-7) 0.08 Negative YOBANY (test code = YOBANY) Non-reactive for HIV-1 antigen and HIV-1/HIV-2 antibodies. ?No laboratory evidence of HIV infection. ?Repeat in 2-4 weeks if acute HIV infection is suspected. [facility] CenterHepatitis B Surface [id number] 18:20:30 * Test Item Value Reference Range Interpretation Comme nts HBsAg Semi-Quantitative (riaz t code = 5195-3) 0.06 Negative [facility] Center[facility] Screen - ONCE [id number] 17:22:16 * Test Item Value Reference Range Interpretation Comme nts ABO & RH (test code = 20) O POSITIVE Performed at [facility] Laboratory Services - [facility] Blood [address] [address]Kpzf Free: [phone] No. [id number] IAT (test code = 1185) Negative Performed at [facility] Laboratory Services - [facility] Blood [address] [address]Iejl Free: [phone] No. [id number] [facility] with [id number] 16:59:29* Test Item Value Reference Range Interpretation Comme nts WBC (test code = 6690-2) 7.68 See_Comment [Automated messa ge] The system which generated this result transmitted reference range: 4.30 - 11.10 10*3/?L. The reference range was not used to interpret this result as normal/abnormal. RBC (test code = 789-8) 4.79 See_Comment [Automated messa ge] The system which generated this result transmitted reference range: 3.93 - 5.25 10*6/?L. The reference range was not used to interpret this result as normal/abnormal. HGB (test code = 718-7) 11.8 g/dL 11.6-15.0 HCT (test code = 4544-3) 36.7 % 35.7-45.2 MCV (test code = 787-2) 76.6 fL 80.6-95.5 L MCH (test code = 785-6) 24.6 pg 25.9-32.8 L MCHC (test code = 786-4) 32.2 g/dL 31.6-35.1 RDW-SD (test code = 93865-3) 49.7 fL 39.0-49.9 RDW-CV (test code = 788-0) 18.5 % 12.0-15.5 H PLT (test code = 777-3) 253 See_Comment [Automated messa ge] The system which generated this result transmitted reference range: 166 - 358 10*3/?L. The reference range was not used to interpret this result as normal/abnormal. MPV (test code = 03673-3) 9.7 fL 9.5-12.9 NRBC/100 WBC (test code = 8288310338) 0.0 See_Comment [Automated me ssage] The system which generated this result transmitted reference range: 0.0 - 10.0 /100 WBCs. The reference range was not used to interpret this result as normal/abnormal. NRBC x10^3 (test code = 6552737281) See_Comment [Automated messa ge] The system which generated this result transmitted reference range: 10*3/?L. The reference range was not used to interpret this result as normal/abnormal. GRAN MAT (NEUT) % (test code = 770-8) 54.6 % IMM GRAN % (test code = 9135025441) 0.30 % LYMPH % (test code = 736-9) 38.8 % MONO % (test code = 5905-5) 5.6 % EOS % (test code = 713-8) 0.3 % BASO % (test code = 706-2) 0.4 % GRAN MAT x10^3(ANC) (test code = 3317531157) 4.20 10*3/uL 1.88-7.09 IMM GRAN x10^3 (test code = 8020521932) 0.00-0.06 LYMPH x10^3 (test code = 731-0) 2.98 10*3/uL 1.32-3.29 MONO x10^3 (test code = 742-7) 0.43 10*3/uL 0.33-0.92 EOS x10^3 (test code = 711-2) 0.03-0.39 L BASO x10^3 (test code = 704-7) 0.03 10*3/uL 0.01-0.07 Lab Interpretation (test code = 39990-3) Abnormal [facility] GLUCOSE (AUTOMATED)2023-01-10 21:59:03* Test Item Value Reference Range Interpretation Comme nts POCT GLU (test code = 2993126885) 97 mg/dL 70-110 Lab Interpretation (test cod e = 00633-2) Normal [facility] URINALYSIS W SPECIFIC [id number] 21:17:00* Test Item Value Reference Range Interpretation Comme nts POCT U SP GRAV (test code = 3255) . 1.005-1.025 POCT PH U (test code = 3254) . 5-8 POCT U LEUK EST (test code = 3263) . Negative - N egative POCT U NIT (test code = 3262) . Negative - Negati ve POCT U PROT (test code = 3259) neg Negative - Negat susan POCT U GLU (test code = 3256) neg Negative - Negati ve POCT U KETONE (test code = 3258) . Negative - Neg ative POCT U UROBILI (test code = 3260) . 0.2-1 POCT U BILI (test code = 3261) . Negative - Negat susan POCT U BLD (test code = 3257) . Negative - Negati ve POCT U COLOR (test code = 3266) . POCT U APPEAR (test code = 3267) . [facility] URINALYSIS W SPECIFIC [id number] 20:24:00* Test Item Value Reference Range Interpretation Comme nts POCT U SP GRAV (test code = 3255) . 1.005-1.025 POCT PH U (test code = 3254) 7 mg/dl 5-8 POCT U LEUK EST (test code = 3263) 2+ Negative - Negative POCT U NIT (test code = 3262) Neg Negative - Negati ve POCT U PROT (test code = 3259) Trace Negative - Negat susan POCT U GLU (test code = 3256) Neg Negative - Negati ve POCT U KETONE (test code = 3258) None Negative - Neg ative POCT U UROBILI (test code = 3260) . 0.2-1 POCT U BILI (test code = 3261) . Negative - Negat susan POCT U BLD (test code = 3257) Trace Negative - Negati ve POCT U COLOR (test code = 3266) POCT U APPEAR (test code = 3267) [facility] WITH [id number] 06:10:54* Test Item Value Reference Range Interpretation Comme nts WBC (test code = 6690-2) 11.52 See_Comment H [Automated messa ge] The system which generated this result transmitted reference range: 4.30 - 11.10 10*3/?L. The reference range was not used to interpret this result as normal/abnormal. RBC (test code = 789-8) 4.11 See_Comment [Automated messa ge] The system which generated this result transmitted reference range: 3.93 - 5.25 10*6/?L. The reference range was not used to interpret this result as normal/abnormal. HGB (test code = 718-7) 10.0 g/dL 11.6-15.0 L HCT (test code = 4544-3) 31.4 % 35.7-45.2 L MCV (test code = 787-2) 76.4 fL 80.6-95.5 L MCH (test code = 785-6) 24.3 pg 25.9-32.8 L MCHC (test code = 786-4) 31.8 g/dL 31.6-35.1 RDW-SD (test code = 11843-9) 39.1 fL 39.0-49.9 RDW-CV (test code = 788-0) 14.3 % 12.0-15.5 PLT (test code = 777-3) 243 See_Comment [Automated messa ge] The system which generated this result transmitted reference range: 166 - 358 10*3/?L. The reference range was not used to interpret this result as normal/abnormal. MPV (test code = 85439-5) 10.6 fL 9.5-12.9 NRBC/100 WBC (test code = 5822649790) 0.0 See_Comment [Automated me ssage] The system which generated this result transmitted reference range: 0.0 - 10.0 /100 WBCs. The reference range was not used to interpret this result as normal/abnormal. NRBC x10^3 (test code = 4819535183) See_Comment [Automated messa ge] The system which generated this result transmitted reference range: 10*3/?L. The reference range was not used to interpret this result as normal/abnormal. GRAN MAT (NEUT) % (test code = 770-8) 61.1 % IMM GRAN % (test code = 2814101530) 0.40 % LYMPH % (test code = 736-9) 30.1 % MONO % (test code = 5905-5) 7.3 % EOS % (test code = 713-8) 0.8 % BASO % (test code = 706-2) 0.3 % GRAN MAT x10^3(ANC) (test code = 6611545343) 7.03 10*3/uL 1.88-7.09 IMM GRAN x10^3 (test code = 3981936307) 0.05 10*3/uL 0.00-0.06 LYMPH x10^3 (test code = 731-0) 3.47 10*3/uL 1.32-3.29 H MONO x10^3 (test code = 742-7) 0.84 10*3/uL 0.33-0.92 EOS x10^3 (test code = 711-2) 0.09 10*3/uL 0.03-0.39 BASO x10^3 (test code = 704-7) 0.04 10*3/uL 0.01-0.07 Lab Interpretation (test code = 59868-7) Abnormal [facility] GLUCOSE (AUTOMATED)2022-12-26 18:10:48* Test Item Value Reference Range Interpretation Comme nts POCT GLU (test code = 4984473360) 135 mg/dL 70-110 H Lab Interpretation (test cod e = 58903-6) Abnormal [facility] URINALYSIS W SPECIFIC [id number] 17:26:00* Test Item Value Reference Range Interpretation Comme nts POCT U SP GRAV (test code = 3255) . 1.005-1.025 POCT PH U (test code = 3254) . 5-8 POCT U LEUK EST (test code = 3263) . Negative - N egative POCT U NIT (test code = 3262) . Negative - Negati ve POCT U PROT (test code = 3259) 1+ Negative - Negat susan POCT U GLU (test code = 3256) 1+ Negative - Negati ve POCT U KETONE (test code = 3258) . Negative - Neg ative POCT U UROBILI (test code = 3260) . 0.2-1 POCT U BILI (test code = 3261) . Negative - Negat susan POCT U BLD (test code = 3257) . Negative - Negati ve POCT U COLOR (test code = 3266) . POCT U APPEAR (test code = 3267) . [facility] URINALYSIS W SPECIFIC [id number] 20:53:00* Test Item Value Reference Range Interpretation Comme nts POCT U SP GRAV (test code = 3255) . 1.005-1.025 POCT PH U (test code = 3254) . 5-8 POCT U LEUK EST (test code = 3263) . Negative - N egative POCT U NIT (test code = 3262) . Negative - Negati ve POCT U PROT (test code = 3259) Trace Negative - Negat susan POCT U GLU (test code = 3256) Neg Negative - Negati ve POCT U KETONE (test code = 3258) . Negative - Neg ative POCT U UROBILI (test code = 3260) . 0.2-1 POCT U BILI (test code = 3261) . Negative - Negat susan POCT U BLD (test code = 3257) . Negative - Negati ve POCT U COLOR (test code = 3266) . POCT U APPEAR (test code = 3267) [facility] URINALYSIS W SPECIFIC [id number] 20:53:00* Test Item Value Reference Range Interpretation Comme nts POCT U SP GRAV (test code = 3255) . 1.005-1.025 POCT PH U (test code = 3254) . 5-8 POCT U LEUK EST (test code = 3263) . Negative - N egative POCT U NIT (test code = 3262) . Negative - Negati ve POCT U PROT (test code = 3259) Trace Negative - Negat susan POCT U GLU (test code = 3256) Neg Negative - Negati ve POCT U KETONE (test code = 3258) . Negative - Neg ative POCT U UROBILI (test code = 3260) . 0.2-1 POCT U BILI (test code = 3261) . Negative - Negat susan POCT U BLD (test code = 3257) . Negative - Negati ve POCT U COLOR (test code = 3266) . POCT U APPEAR (test code = 3267) [facility] GLUCOSE (AUTOMATED)2022-12-14 19:05:33* Test Item Value Reference Range Interpretation Comme nts POCT GLU (test code = 8292826490) 143 mg/dL 70-110 H Lab Interpretation (test cod e = 75315-1) Abnormal [facility] GLUCOSE(AGE >30DAYS)2022-12-14 17:59:00* Test Item Value Reference Range Interpretation Comme nts POCT Glu (age>30days) (test code = 3342) 143 mg/dL 70-110 A Lab Interpretation (test cod e = 88083-7) Abnormal [facility] URINALYSIS W SPECIFIC [id number] 17:11:00* Test Item Value Reference Range Interpretation Comme nts POCT U SP GRAV (test code = 3255) . 1.005-1.025 POCT PH U (test code = 3254) . 5-8 POCT U LEUK EST (test code = 3263) . Negative - Negative POCT U NIT (test code = 3262) . Negative - Negati ve POCT U PROT (test code = 3259) trace Negative - Negat susan POCT U GLU (test code = 3256) negative Negative - Negati ve POCT U KETONE (test code = 3258) . Negative - Neg ative POCT U UROBILI (test code = 3260) . 0.2-1 POCT U BILI (test code = 3261) . Negative - Negat susan POCT U BLD (test code = 3257) . Negative - Negati ve POCT U COLOR (test code = 3266) . POCT U APPEAR (test code = 3267) . [facility] URINALYSIS W SPECIFIC [id number] 14:54:00* Test Item Value Reference Range Interpretation Comme nts POCT U SP GRAV (test code = 3255) . 1.005-1.025 POCT PH U (test code = 3254) . 5-8 POCT U LEUK EST (test code = 3263) . Negative - N egative POCT U NIT (test code = 3262) . Negative - Negati ve POCT U PROT (test code = 3259) trace Negative - Negat susan POCT U GLU (test code = 3256) Negative - Negati ve POCT U KETONE (test code = 3258) . Negative - Neg ative POCT U UROBILI (test code = 3260) . 0.2-1 POCT U BILI (test code = 3261) . Negative - Negat susan POCT U BLD (test code = 3257) . Negative - Negati ve POCT U COLOR (test code = 3266) . POCT U APPEAR (test code = 3267) . [facility] GLUCOSE(AGE >30DAYS)2022-09-23 15:11:00* Test Item Value Reference Range Interpretation Comme nts POCT Glu (age>30days) (test code = 3342) 90 mg/dL 70-110 [facility] GLUCOSE (AUTOMATED)2022-09-23 15:08:07* Test Item Value Reference Range Interpretation Comme nts POCT GLU (test code = 5551353632) 90 mg/dL 70-110 Lab Interpretation (test cod e = 48042-6) Normal [facility] URINALYSIS W SPECIFIC [id number] 14:24:00* Test Item Value Reference Range Interpretation Comme nts POCT U SP GRAV (test code = 3255) . 1.005-1.025 POCT PH U (test code = 3254) . 5-8 POCT U LEUK EST (test code = 3263) . Negative - N egative POCT U NIT (test code = 3262) . Negative - Negati ve POCT U PROT (test code = 3259) Trace Negative - Negat susan POCT U GLU (test code = 3256) Neg Negative - Negati ve POCT U KETONE (test code = 3258) . Negative - Neg ative POCT U UROBILI (test code = 3260) . 0.2-1 POCT U BILI (test code = 3261) . Negative - Negat susan POCT U BLD (test code = 3257) . Negative - Negati ve POCT U COLOR (test code = 3266) . POCT U APPEAR (test code = 3267) . [facility] URINALYSIS W SPECIFIC [id number] 14:46:00* Test Item Value Reference Range Interpretation Comme nts POCT U SP GRAV (test code = 3255) . 1.005-1.025 POCT PH U (test code = 3254) . 5-8 POCT U LEUK EST (test code = 3263) . Negative - N egative POCT U NIT (test code = 3262) . Negative - Negati ve POCT U PROT (test code = 3259) 1+ Negative - Negat susan POCT U GLU (test code = 3256) Neg Negative - Negati ve POCT U KETONE (test code = 3258) . Negative - Neg ative POCT U UROBILI (test code = 3260) . 0.2-1 POCT U BILI (test code = 3261) . Negative - Negat susan POCT U BLD (test code = 3257) . Negative - Negati ve POCT U COLOR (test code = 3266) . POCT U APPEAR (test code = 3267) . [facility] URINALYSIS W SPECIFIC [id number] 13:21:00* Test Item Value Reference Range Interpretation Comme nts POCT U SP GRAV (test code = 3255) . 1.005-1.025 POCT PH U (test code = 3254) . 5-8 POCT U LEUK EST (test code = 3263) . Negative - N egative POCT U NIT (test code = 3262) . Negative - Negati ve POCT U PROT (test code = 3259) Trace Negative - Negat susan POCT U GLU (test code = 3256) Neg Negative - Negati ve POCT U KETONE (test code = 3258) . Negative - Neg ative POCT U UROBILI (test code = 3260) . 0.2-1 POCT U BILI (test code = 3261) . Negative - Negat susan POCT U BLD (test code = 3257) . Negative - Negati ve POCT U COLOR (test code = 3266) . POCT U APPEAR (test code = 3267) . [facility] URINALYSIS W SPECIFIC [id number] 13:05:00* Test Item Value Reference Range Interpretation Comme nts POCT U SP GRAV (test code = 3255) . 1.005-1.025 POCT PH U (test code = 3254) . 5-8 POCT U LEUK EST (test code = 3263) . Negative - N egative POCT U NIT (test code = 3262) . Negative - Negati ve POCT U PROT (test code = 3259) 1+ Negative - Negat susan POCT U GLU (test code = 3256) Neg Negative - Negati ve POCT U KETONE (test code = 3258) . Negative - Neg ative POCT U UROBILI (test code = 3260) . 0.2-1 POCT U BILI (test code = 3261) . Negative - Negat susan POCT U BLD (test code = 3257) . Negative - Negati ve POCT U COLOR (test code = 3266) . POCT U APPEAR (test code = 3267) .. [facility] History and Physical Notes Date/Time Note Provider Source 2024-10-21 07:13:35 TRIAGE/L&D HISTORY & PHYSICAL IDENTIFYING DATA Enid Munguia is 28 year old, /White, 37w3d, female with BRYAN 11/08/2024, by Last Menstrual Period. : 1995 Primary Care Physician: Rogelio Sen CHIEF COMPLAINT Scheduled IOL HISTORY OF PRESENT ILLNESS Enid Munguia is a 28 year old at 37w3d who presents for scheduled IOL due to uncontrolled pre-gestational diabetes. Patient denies vaginal bleeding, denies leakage of fluid, denies contractions. Patient denies headache, denies nausea/vomiting, denies RUQ pain, denies visual abnormalities. Endorses normal movement. PAST OBSTETRIC HISTORY OB History Para Term AB Living 4 3 3 3 SAB IAB Ectopic Multiple Live Births 0 3 # Outcome Date GA Lbr Eliel/2nd Weight Sex Type Anes PTL Lv 4 Current 3 Term 01/15/23 39w0d 3520 g F NORMAL SPONT EPI NIKOLAY 2 Term 08/05/19 39w1d 3580 g F NORMAL SPONT EPI N NIKOLAY 1 Term 02/16/17 39w6d 3856 g F VAGINAL EPI NIKOLAY Comments: Maternal Age: 19; :1; Parity:1 Mother's Blood Type:O pos Baby's Blood Type:A pos, TEE negative Maternal Serological Test:normal Maternal Group B Strep Screening:negative; Adequate Treatment:not applicable Complications:Gestational diabetes, maternal anemia, Maternal ovarian cyst, maternal obesity Labor Complications:no OAE: passed with risk Hepatitis B Vaccine:yes Problems:yes - Term large for gestational age female: glucose 73, 62 Infant of diabetic mother 1st screen collected on 02/17/17 showed normal. mg PAST MEDICAL HISTORY Problem list: Patient Active Problem List Diagnosis Date Noted 37 weeks gestation of 10/21/2024 Insufficient care in third trimester 10/11/2024 Non-compliant patient, third trimester 10/11/2024 Herpes simplex virus (HSV) infection of vagina 04/16/2024 Rubella non-immune status, antepartum 03/15/2024 Tubal ligation status 03/14/2024 Pregestational diabetes mellitus, modified White class B 05/25/2022 Bipolar 1 disorder 09/16/2020 Depression during in third trimester 12/06/2018 Anemia of mother in , antepartum 01/26/2017 Decline flu vaccine 09/01/2016 Obesity in 06/22/2016 Operations: No past surgical history on file. Past Medical History: Diagnosis Date Anemia of mother in , antepartum 01/26/2017 resolved. Bipolar 1 disorder 08/26/2019 on medication, managed by [facility] Bipolar disorder with depression 07/2019 declines s/s depression/not taking medication Diabetes ongoing DM (diabetes mellitus), gestational 06/29/2016 ongoing Genital herpes 03/2018 has not had an outbreak since 2018 Genital herpes affecting in first trimester 12/06/2018 History of gestational diabetes in prior , currently in first trimester 12/06/2018 depression 03/09/2017 resolved CURRENT HEALTH STATUS Medications: Current Facility-Administered Medications Medication Dose Route Frequency Last Rate Last Admin D5W-LR IV infusion 1,000 mL 1,000 mL IV Infusion TITRATE dextrose 50 % in water (D50W) injection 25 mL 25 mL Slow IV Push PRN glucagon HCL injection 1 mg 1 mg Intramuscular PRN lactated ringers IV infusion 250 mL 250 mL IV Infusion PRN - SEE INSTRUCTIONS lidocaine 1% (PF) (XYLOCAINE) injection 0.3 mL 0.3 mL Infiltration PRN - SEE INSTRUCTIONS lidocaine 1% (XYLOCAINE) 10 mg/mL (1 %) injection 50 mL 50 mL Infiltration PRN - SEE INSTRUCTIONS oxytocin (PITOCIN) 30 units in NS 500 mL IV infusion 2-40 ida-units/min IV Infusion TITRATE Sliding Scale Insulin-Regular Subcutaneous SEE-INSTRUCTIONS sodium citrate-citric acid (BICITRA) 500-334 mg/5 mL solution 30 mL 30 mL Oral PRE-PROCEDURE ONCE Allergies and drug reactions: Patient has no known allergies. HOME MEDICATIONS Medications Prior to Admission Medication Sig Dispense Refill Last Dose acyclovir 400 mg tablet Take 1 tablet by mouth in the morning and 1 tablet at noon and 1 tablet in the evening. Do all this for 30 days. 90 tablet 0 buPROPion XL 150 mg 24 hr tablet Take 1 tablet by mouth in the morning. 30 tablet 1 magnesium oxide 400 mg (241.3 mg magnesium) tablet Take 1 tablet by mouth in the morning. 30 tablet 1 proMETHazine 25 mg tablet Take 1 tablet by mouth every 4 (four) hours as needed for Nausea and Vomiting (N/V) for up to 45 doses. 45 tablet 0 aspirin 81 mg EC tablet Take 1 tablet by mouth in the morning. 30 tablet 5 SERTraline (ZOLOFT) 50 mg tablet Take 1 tablet by mouth in the morning. 30 tablet 1 blood sugar diagnostic (FREESTYLE LITE STRIPS) strip Check blood glucose 4x daily 100 Each 3 Blood-Glucose Meter (FREESTYLE LITE METER) Kit Check blood glucose 4x daily 1 Kit 0 lancets (FREESTYLE LANCETS) 28 gauge Misc Check glucose 4x daily 100 Each 3 PNV 67-iron ps-folate no.1-dha (VITAFOL ULTRA) 29 mg iron- 1 mg-200 mg Cap Take 1 Each by mouth in the morning. 30 capsule 9 Iron Fum & P-FA-Vit B & C No.9 (INTEGRA PLUS) 125 mg iron- 1 mg Cap Take 1 capsule by mouth in the morning. 30 capsule 6 blood sugar diagnostic (TRUE METRIX GLUCOSE TEST STRIP) strip Check glucose level 4x daily 200 Strip 10 Blood-Glucose Meter (TRUE METRIX GLUCOSE METER) Misc Take blood sugar 4 times a day 1 Each 0 lancets (LANCETS,ULTRA THIN) 26 gauge Misc Take blood sugar 4 times a day 200 Each 10 SOCIAL HISTORY Tobacco History: Social History Tobacco Use Smoking Status Never Passive exposure: Yes Smokeless Tobacco Never Drug History: Social History Substance and Sexual Activity Drug Use No Alcohol History: Social History Substance and Sexual Activity Alcohol Use Not Currently Comment: stopped for FAMILY HISTORY Family History Problem Relation Age of Onset Cancer Mother Diabetes Father Arthritis Maternal Grandmother Cancer Maternal Grandmother Arthritis Maternal Grandfather Cancer Maternal Grandfather Arthritis Paternal Grandmother Cancer Paternal Grandmother Arthritis Paternal Grandfather Cancer Paternal Grandfather Heart Paternal Grandfather Asthma Maternal Aunt Cancer Maternal Aunt Cancer Maternal Uncle Heart Paternal Aunt Hypertension Paternal Aunt defects NoFHx Breast Cancer NoFHx Colon Cancer NoFHx Ovarian Cancer NoFHx Uterine Cancer NoFHx Depression NoFHx Genetic NoFHx High cholesterol NoFHx Mental retardation NoFHx Neurological NoFHx Osteoporosis NoFHx Psychiatry NoFHx Other - see comments NoFHx Amblyopia NoFHx Blindness NoFHx Glaucoma NoFHx Macular degeneration NoFHx Retinal detachment NoFHx REVIEW OF SYSTEMS General: negative Skin: negative HEENT: negative Neck: negative HEME: negative Resp: negative Cardio: negative GI: negative : negative Endo: negative Neuro: negative Back: negative [place]: negative Psych: negative VITAL SIGNS BP: (136)/(90) Temp: [37.2 ?C (98.9 ?F)] Temp source: Axillary (10/21 729) Pulse: [105] Resp: [18] SpO2: [99 %] Height: [157.5 cm (5' 2")] Weight: [106.3 kg (234 lb 6.4 oz)] BMI (calculated): [42.87] PHYSICAL EXAMINATIONS General: patient alert and in no acute distress HEENT: symmetric, negative for masses Lungs: unlabored breathing Breast: deferred Cardiology: peripheral pulses intact and regular Abdomen: soft, non-tender, non-distended, no liver, spleen or abnormal masses palpated and Gravid Extremities: no clubbing, cyanosis, or edema Neuro: patient moving all extremities, no facial droop : speculum exam: no lesions visualized on exam, SVE: 4/50/-3 REVIEW OF LABORATORY, PATHOLOGY, AND RADIOLOGY DATA Lab results: Type & Screen Lab Results Component Value Date/Time IABORH O POSITIVE 03/14/2024 10:52 AM IAT Negative 03/14/2024 10:52 AM Serologies Lab Results Component Value Date/Time VZVIGG Positive 03/14/2024 10:52 AM HIVMULTIPLEX Non-reactive 12/06/2018 10:51 AM RUBG Equivocal 03/14/2024 10:52 AM SYPIGG Non-reactive 09/23/2024 08:08 AM SYPIGG Nonreactive 02/15/2017 06:42 PM HBSAG Negative 03/14/2024 10:52 AM HBSAG 0.09 03/14/2024 10:52 AM Chlamydia Lab Results Component Value Date/Time VCAA Negative 10/09/2024 11:44 AM Group B Strep Lab Results Component Value Date/Time CGB Negative 10/11/2024 10:50 AM GTT Lab Results Component Value Date/Time GLUF 105 01/01/2019 08:13 AM QCSQ9HN 255 (H) 03/14/2024 10:52 AM GLU3H 121 (H) 01/01/2019 11:15 AM CBC Lab Results Component Value Date/Time HGB 8.5 (L) 10/11/2024 10:50 AM HCT 28.3 (L) 10/11/2024 10:50 AM PLT 238 10/11/2024 10:50 AM Active Hospital Problems Diagnosis Date Noted 37 weeks gestation of 10/21/2024 Resolved Hospital Problems No resolved problems to display. Present on Admission: 37 weeks gestation of Placenta Accreta Screening Prior ? : No Prior Uterine Surgery?: No Placenta low lying/previa in current ? : No Ultrasound suspicion of PASD in current ?: No Screening outcome: A positive screening outcome indicates a history of prior delivery or prior uterine surgery, AND the presence of either a placenta low lying/previa or ultrasound suspicion of PASD in the current . Negative screening. ASSESSMENT AND PLAN Enid Munguia is a 28 year old at 37w3d by d/u (10w) who presents for scheduled IOL due to poorly controlled pregestational diabetes. IOL - Patient denies vb, lof, and ctx - Patient endorses normal fm - SVE: / -3 - [place]: irritable - Plan: IOL with pitocin Uncontrolled Pregestational Diabetes - Dx 2020. Previously on Ozempic, d/c prior to in 2021 - A1C 03/14: 7.4 -> 09/23: 6.6 - Noncompliant with [facility] log, 24hr urine and no showed multiple NST according to clinic note - Patient not currently on medications - MFM US 10/09/24 with EFW and AC >97%ile. Recommend 37-38 wk delivery Plan: - Continue with IOL. - SSI ordered intrapartum H/o HSV - pt reports first outbreak 2017 - denies outbreaks during this - began suppression at 36wks; reports compliance - Speculum exam on admission: no lesions visualized on exam Bipolar 1 disorder - Prescribed Zoloft - no longer taking - Has taken Seroquel, Wellbutrin, and Ambien in the past at different intervals. - Denies SI/HI - Restarted on Wellbutrin 150 mg daily on 09/11 per patient request - Reports she has not started, stable mood today DPS - BTL consents signed 08/07/24 - PSH: none - Counseled on admission and desires, see separate counseling note Antepartum course reviewed - sero negative, Requivocal, VZVimmune, O positive/IAT negative, GBS negative, Pap NILM 05/25/22 - H/H, plt: 8.5 / 28.3, 238 on 10/11/24 - PP control plan: BTL - [place] [facility] Fetus - Presentation on admission: cephalic - anterior placenta - EFW: 4179 g, 99%tile AC >99%tile on BSUS; counseled on possibility of - FHT reactive and reassuring - Normal anatomy scan D/w Dr. Danica Alexander MD CHEMICAL LAB SUPERVISOR PGY-2 10/21/24 MACHINE KEY PERSON Associated attestation - Radha Harley MD - 10/21/2024 3:58 PM SLOT MACHINE KEY PERSON I personally examined the patient on 10/21/[address] Alexander's resident note with the following addition(s): Enid being induced at 37w3d for uncontrolled Diabetes. EFW 4179g with AC > 99th %ile, last NIXON 17cm. Discussed risk for need for should fetus fail to descend or if labor protracted. anemia also present, T&S current, recommend crossmatching 2 units on hold. Risks for PPH include LGA fetus, anemia. I actively participated in the decision-making process. Please see the resident's note for additional details. Radha Harley MD 10/21/2024 3:58 PM [facility] Faculty [facility] 2024-08-18 08:33:02 TRIAGE HISTORY & PHYSICAL IDENTIFYING DATA Enid Munguia is 28 year old, /White, 28w2d, female with BRYAN 11/08/2024, by Last Menstrual Period. : 1995 Primary Care Physician: Rogelio Sen CHIEF COMPLAINT N/V/D/right flank pain HISTORY OF PRESENT ILLNESS Enid Munguia is a 28 year old female @ 28w2d with nausea and vomiting and diarrhea that started around 6 am yesterday. No more nausea/vomiting since presentation. Had another episode of diarrhea around 5 am. Denies fever, chills, or bloody BM. Right mid flank pain that started about 4 days ago that was worse yesterday. Achy, constant, worse when laying on back/side, better when not laying on that side, has not require medication, non-radiation, 10 in severity. Denies UTI symptoms or hematuria. +FM. No VB, LOF, or CTX. No pre-eclampsia sx or other complaints. PAST OBSTETRIC HISTORY OB History Para Term AB Living 4 3 3 3 SAB IAB Ectopic Multiple Live Births 0 3 # Outcome Date GA Lbr Eliel/2nd Weight Sex Delivery Anes PTL Lv 4 Current 3 Term 01/15/23 39w0d 3520 g F NORMAL SPONT EPI NIKOLAY 2 Term 08/05/19 39w1d 3580 g F NORMAL SPONT EPI N NIKOLAY 1 Term 02/16/17 39w6d 3856 g F VAGINAL EPI NIKOLAY Comments: Maternal Age: 19; :1; Parity:1 Mother's Blood Type:O pos Baby's Blood Type:A pos, TEE negative Maternal Serological Test:normal Maternal Group B Strep Screening:negative; Adequate Treatment:not applicable Complications:Gestational diabetes, maternal anemia, Maternal ovarian cyst, maternal obesity Labor Complications:no OAE: passed with risk Hepatitis B Vaccine:yes Problems:yes - Term large for gestational age female: glucose 73, 62 of diabetic mother 1st screen collected on 02/17/17 showed normal. mg PAST MEDICAL HISTORY Problem list: Patient Active Problem List Diagnosis Date Noted Nausea vomiting and diarrhea 08/18/2024 Herpes simplex virus (HSV) infection of vagina 04/16/2024 Rubella non-immune status, antepartum 03/15/2024 related nausea, antepartum 03/14/2024 Tubal ligation status 03/14/2024 Pregestational diabetes mellitus, modified White class B 05/25/2022 Bipolar 1 disorder 09/16/2020 28 weeks gestation of 02/15/2017 Anemia of mother in , antepartum 01/26/2017 Decline flu vaccine 09/01/2016 Obesity in 06/22/2016 Operations: No past surgical history on file. Past Medical History: Diagnosis Date Anemia of mother in , antepartum 01/26/2017 resolved. Bipolar 1 disorder 08/26/2019 on medication, managed by [facility] Bipolar disorder with depression 07/2019 declines s/s depression/not taking medication Diabetes ongoing DM (diabetes mellitus), gestational 06/29/2016 ongoing Genital herpes 03/2018 has not had an outbreak since 2017 Genital herpes affecting in first trimester 12/06/2018 History of gestational diabetes in prior , currently in first trimester 12/06/2018 depression 03/09/2017 resolved CURRENT HEALTH STATUS Medications: Current Facility-Administered Medications Medication Dose Route Frequency Last Rate Last Admin Nitrofurantoin&Nit. Macrocryst (MACROBID) 100 mg capsule 100 mg 100 mg Oral BID 100 mg at 08/18/24 0840 Sliding Scale Insulin-Regular Subcutaneous AC+HS acetaminophen (TYLENOL) tablet 650 mg 650 mg Oral Q6HPRN 650 mg at 08/17/24 2217 metoclopramide HCl (REGLAN) 10 mg in NaCl 0.9% (NS) piggyback 10 mg IV Piggyback Q6HPRN 150 mL/hr at 08/17/24 2257 10 mg at 08/17/24 2257 metroNIDAZOLE (FLAGYL) tablet 500 mg 500 mg Oral Q12H 500 mg at 08/18/24 0841 NaCl 0.9% (NS) IV infusion 1,000 mL 1,000 mL IV Infusion CONTINUOUS 125 mL/hr at 08/18/24 0340 1,000 mL at 08/18/24 0340 Allergies and drug reactions: Patient has no known allergies. HOME MEDICATIONS Medications Prior to Admission Medication Sig Dispense Refill Last Dose magnesium oxide 400 mg (241.3 mg magnesium) tablet Take 1 tablet by mouth in the morning. 30 tablet 1 proMETHazine 25 mg tablet Take 1 tablet by mouth every 4 (four) hours as needed for Nausea and Vomiting (N/V) for up to 45 doses. 45 tablet 0 aspirin 81 mg EC tablet Take 1 tablet by mouth in the morning. 30 tablet 5 SERTraline (ZOLOFT) 50 mg tablet Take 1 tablet by mouth in the morning. 30 tablet 1 blood sugar diagnostic (FREESTYLE LITE STRIPS) strip Check blood glucose 4x daily 100 Each 3 Blood-Glucose Meter (FREESTYLE LITE METER) Kit Check blood glucose 4x daily 1 Kit 0 lancets (FREESTYLE LANCETS) 28 gauge Misc Check glucose 4x daily 100 Each 3 PNV 67-iron ps-folate no.1-dha (VITAFOL ULTRA) 29 mg iron- 1 mg-200 mg Cap Take 1 Each by mouth in the morning. 30 capsule 9 Iron Fum & P-FA-Vit B & C No.9 (INTEGRA PLUS) 125 mg iron- 1 mg Cap Take 1 capsule by mouth in the morning. 30 capsule 6 blood sugar diagnostic (TRUE METRIX GLUCOSE TEST STRIP) strip Check glucose level 4x daily 200 Strip 10 Blood-Glucose Meter (TRUE METRIX GLUCOSE METER) Misc Take blood sugar 4 times a day 1 Each 0 lancets (LANCETS,ULTRA THIN) 26 gauge Misc Take blood sugar 4 times a day 200 Each 10 SOCIAL HISTORY Tobacco History: Social History Tobacco Use Smoking Status Never Passive exposure: Yes Smokeless Tobacco Never Drug History: Social History Substance and Sexual Activity Drug Use No Alcohol History: Social History Substance and Sexual Activity Alcohol Use Not Currently Comment: stopped for FAMILY HISTORY Family History Problem Relation Age of Onset Cancer Mother Diabetes Father Arthritis Maternal Grandmother Cancer Maternal Grandmother Arthritis Maternal Grandfather Cancer Maternal Grandfather Arthritis Paternal Grandmother Cancer Paternal Grandmother Arthritis Paternal Grandfather Cancer Paternal Grandfather Heart Paternal Grandfather Asthma Maternal Aunt Cancer Maternal Aunt Cancer Maternal Uncle Heart Paternal Aunt Hypertension Paternal Aunt defects NoFHx Breast Cancer NoFHx Colon Cancer NoFHx Ovarian Cancer NoFHx Uterine Cancer NoFHx Depression NoFHx Genetic NoFHx High cholesterol NoFHx Mental retardation NoFHx Neurological NoFHx Osteoporosis NoFHx Psychiatry NoFHx Other - see comments NoFHx Amblyopia NoFHx Blindness NoFHx Glaucoma NoFHx Macular degeneration NoFHx Retinal detachment NoFHx REVIEW OF SYSTEMS General: negative Constitutional: negative Eyes: negative ENT/Mouth: negative Cardiovascular: negative Respiratory: negative Gastrointestinal: see HPI Genitourinary: negative Musculoskeletal: negative Skin/breast: negative Neurological: negative Psychiatric: negative Endocrine: negative Hemat/Lymph: negative Allergic/Immuno:none VITAL SIGNS BP: (122-133)/(59-78) Temp: [36.6 ?C (97.9 ?F)-36.8 ?C (98.2 ?F)] Temp source: Oral (08/18 0500) Pulse: [96-128] Resp: [18] SpO2: [97 %-100 %] Height: [157.5 cm (5' 2")] Weight: [102.7 kg (226 lb 6.4 oz)] BMI (calculated): [41.41] PHYSICAL EXAMINATIONS Gen: alert and oriented, well appearing, no distress CV: RRR, normal S1/S2, no m/r/g Resp: normal work of breathing, lungs CTAB Abd: gravid, soft, NTTP Ext: no calf tenderness or edema : SVE closed by POLYTECHNIC REGISTRAR OF LABORATORY, PATHOLOGY, AND RADIOLOGY DATA Lab results: Type & Screen HIV Hep B Syphilis Chlamydia ABO & RH Date Value Ref Range Status 03/14/2024 O POSITIVE Final HIV Ag-Ab Multiplex Date Value Ref Range Status 12/06/2018 Non-reactive Non-reactive Final No components found for: "HBSHBSAG" Syphilis IgG/IgM Date Value Ref Range Status 03/14/2024 Non-reactive Non-reactive Final C. trachomatis Nucleic Acid Date Value Ref Range Status 03/14/2024 Negative Negative Final IAT Date Value Ref Range Status 03/14/2024 Negative Final Varicella Rubella Glucose Group B Strep CBC VZV IgG antibody Date Value Ref Range Status 03/14/2024 Positive Negative Final Rubella screen IgG Date Value Ref Range Status 03/14/2024 Equivocal Negative Final GLUC 1 HR Date Value Ref Range Status 03/14/2024 255 (H) 120 - 170 mg/dL Final No results found for: "CGBS" HGB Date Value Ref Range Status 08/17/2024 10.8 (L) 11.6 - 15.0 g/dL Final HCT Date Value Ref Range Status 08/17/2024 34.4 (L) 35.7 - 45.2 % Final PLT Date Value Ref Range Status 08/17/2024 284 166 - 358 10*3/?L Final Active Hospital Problems Diagnosis Date Noted Nausea vomiting and diarrhea 08/18/2024 Pregestational diabetes mellitus, modified White class B 05/25/2022 28 weeks gestation of 02/15/2017 Obesity in 06/22/2016 Resolved Hospital Problems No resolved problems to display. Present on Admission: 28 weeks gestation of Pregestational diabetes mellitus, modified White class B Obesity in Placenta Accreta Screening Prior ? : No Prior Uterine Surgery?: No Placenta low lying/previa in current ? : No Screening outcome: A positive screening outcome indicates a history of prior delivery or prior uterine surgery, AND the presence of either a placenta low lying/previa or ultrasound suspicion of PASD in the current . Negative screening. ASSESSMENT AND PLAN Enid Munguia is a 28 year old at 28w2d who presents with N/V/D and right flank pain. N/V/D - appeared to be gastroenteritis. Patient received IV fluids and tolerating clears now. Advance diet as tolerated - Electrolytes repletion ordered UTI - received Rocephin IV - Macrobid ordered - urine culture result pending BV - on Flagyl Class B DM - not on medication - FSBG and SSI prn Latest Reference Range & Units 08/17/24 18:51 08/17/24 20:59 08/18/24 05:03 08/18/24 08:37 POCT GLU 70 - 110 mg/dL 163 (H) 123 (H) 136 (H) 126 (H) (H): Data is abnormally high - patient states her glucose is ~ 100s at home. Advise to check FSBG 4x/day and to bring glucose log to her next visit on . Round ligament pain - Right flank pain appeared to be round ligament pain - No tenderness noted on exam - Advise maternity belt, rest prn, tylenol prn care with [facility], please see note for more details Dispo: anticipate discharge home today if continues to do well Allen Gibbs MD [facility] - Health Procedure Notes Date/Time Note Provider Source 2024-10-21 13:34:40 Associated Order(s): Central Neuraxial Block Central Neuraxial Block Date/Time: 10/21/2024 1:34 PM Performed by: Philipp Vázquez MD Authorized by: Philip Cantrell MD Patient Location: OB End Time: 10/21/2024 1:34 PM Reason for Block: OB request, Patient request, Labor analgesia, Surgical anesthesia and Post-op pain management Staff: Anesthesiologist: Philip Cantrell MD Resident/BUILDINGS PAINTER: Philipp Vázquez MD Performed by: resident/BUILDINGS PAINTER Preanesthetic Checklist: patient identified, IV checked, risks and benefits explained, monitors and equipment checked, timeout performed, pre-op evaluation, site marked and anesthesia consent Procedure: Type of Neuraxial: Epidural Epidural Description: 1st attempt Sterility Prep cap, drape, gloves, hand hygiene and mask Patient Position: sitting Prep: Betadine and patient draped Monitoring: heart rate, continuous pulse ox, heart rate / toco and NIBP Location: lumbar (1-5) Lumbar: L2-L3 Approach: midline Technique: catheter and ARACELI saline Guidance with: landmark technique} Epidural/Spinal Maxton and/or Catheter: Epidural/Spinal Kit: BBraun Needle Type: Tuohy Needle Gauge: 17 G Needle Length: 3.5 in (8.89 cm) Needle Insertion Depth: 7 Catheter Type: multiport Catheter Size: 19 G Catheter at Skin Depth: 13 Number of Attempts: 1 Test Dose: negative and lidocaine 1.5% with epinephrine 1-to-200,000 Dose: 5 cc Catheter Securement Method: surgical tape and Tegaderm Assessment: Block Outcome: a full evaluation is pending, patient comfortable, patient tolerated procedure well and no apparent complications Procedure Assessment: patient tolerated procedure well with no complications Notes: Patient identified; pre-procedure verification. Patient prepped and draped in standard sterile fashion using betadine x 3 Subcutaneous infiltration with 1% Lidocaine ARACELI at 7 cm; catheter secured at 13 cm with mastisol, tegaderm x2 and 3-inch clear tape. Aspiration test negative x 3 Test dose negative Patient tolerated procedure well with no immediate complications Epidural expectations; PCEA explained and fall precautions given. [facility] ANESTHESIOLOGY [facility]
[2024-11-17] MEDS ORDERED: AZITHROMYCIN 250 MG TAB ONE (09:22)
[2024-11-17 10:00] LABS: SARS-CoV-2 Antigen CONTROL BLUE LINE VIS/BG OK; SARS-CoV-2 Antigen Rapid Res Negative (Negative)
--- NOTE | 2024-11-17 10:48 | ER ---
Nurse's Notes [facility] Name: Enid Munguia Age: 29 yrs Sex: Female : 1995 Arrival Date: 11/17/2024 Time: 09:08 Bed 18 Private MD: Diagnosis: Acute pharyngitis, unspecified;Acute upper respiratory infection, unspecified Presentation: 11/17 09:20 Chief complaint: Patient states: SORE THROAT AND RUNNY NOSE SINCE LAST PM. Coronavirus bp screen: At this time, the client does not indicate any symptoms associated with coronavirus-19. Ebola Screen: No symptoms or risks identified at this time. Initial Sepsis Screen: Does the patient meet any 2 criteria? No. Patient's initial sepsis screen is negative. Does the patient have a suspected source of infection? No. Patient's initial sepsis screen is negative. Risk Assessment: Do you want to hurt yourself or someone else? Patient reports no desire to harm self or others. Onset of symptoms is unknown. 09:20 Method Of Arrival: Ambulatory bp 09:20 Acuity: DERRELL 4 bp Triage Assessment: 09:48 General: Appears in no apparent distress. Behavior is calm, cooperative, appropriate bp for age. Pain: Complains of pain in neck. EENT: Throat is reddened. Neuro: No deficits noted. Cardiovascular: No deficits noted. Respiratory: No deficits noted. GI: No signs and/or symptoms were reported involving the gastrointestinal system. : No signs and/or symptoms were reported regarding the genitourinary system. Derm: No deficits noted. Musculoskeletal: No deficits noted. Historical: - Allergies: 09:48 NKDA; bp - PMHx: 09:48 Bipolar disorder; Ovarian cyst; bp - Immunization history:: Adult Immunizations up to date. - Infectious Disease History:: Denies. - Social history:: Smoking status: Patient denies any tobacco usage or history of. Screenin:49 [facility] ED Fall Risk Assessment (Adult) History of falling in the last 3 months, bp including since admission No falls in past 3 months (0 pts) Confusion or Disorientation No (0 pts) Intoxicated or Sedated No (0 pts) Impaired Gait No (0 pts) Mobility Assist Device Used No (0 pt) Altered Elimination No (0 pt) Score/Fall Risk Level 0 - 2 = Low Risk Oriented to surroundings. Abuse screen: Denies threats or abuse. Denies injuries from another. Nutritional screening: No deficits noted. Tuberculosis screening: No symptoms or risk factors identified. Assessment: 09:49 General: Appears in no apparent distress. Behavior is calm, cooperative, appropriate bp for age. Respiratory: Airway is patent Respiratory effort is even, unlabored, Breath sounds are clear bilaterally. Vital Signs: 09:20 BP 138 / 85; Pulse 87; Resp 16; Temp 98.1; Pulse Ox 98% ; Weight 92.08 kg; Height 5 ft. bp 1 in. ; 09:20 Body Mass Index 38.36 (92.08 kg, 154.94 cm) bp ED Course: 09:10 Patient arrived in ED. ra3 09:11 Logan Tyson MD is Attending Physician. [facility] 09:20 Hammad Orta, RN is Primary Nurse. bp 09:27 Strep Sent. bc6 09:27 SARS RAPID Sent. bc6 09:27 Flu Sent. bc6 09:27 COVID swab sent to lab. Flu and/or RSV swab sent to lab. Strep swab sent to lab. bc6 09:48 Triage completed. bp 09:48 Arm band placed on. bp 09:49 Patient has correct armband on for positive identification. bp 10:55 No provider procedures requiring assistance completed. Patient did not have IV access bp during this emergency room visit. Administered Medications: 09:23 Drug: AZITHromycin PO 500 mg PO once Route: PO; bp 10:56 Follow up: Response: No adverse reaction bp Medication: 09:49 VIS not applicable for this client. bp Outcome: 10:47 Discharge ordered by . marilee 10:55 Discharged to home ambulatory, bp 10:55 Condition: stable 10:55 Discharge instructions given to patient, Instructed on discharge instructions, follow up and referral plans. medication usage, Demonstrated understanding of instructions, follow-up care, medications, Prescriptions given X 3, 10:56 Patient left the ED. bp Signatures: Logan Tyson MD MD cha Peltier, Brian, RN RN Minda Dc [facility] Aline Regan ra3
--- NOTE | 2024-11-17 10:48 | EDPHYS ---
Physician Documentation [facility] Name: Enid Munguia Age: 29 yrs Sex: Female : 1995 Arrival Date: 11/17/2024 Time: 09:08 Bed 18 Private MD: ED Physician Logan Tyson HPI: 11/17 10:43 This 29 yrs old Female presents to ER via Ambulatory with complaints of Sore marilee Throat. 10:43 The patient presents with sore throat. The patient describes throat pain as constant, marilee raw. Onset: The symptoms/episode began/occurred 2 day(s) ago. Severity of symptoms: At their worst the symptoms were mild, moderate, in the emergency department the symptoms are unchanged. Modifying factors: The symptoms are alleviated by nothing, the symptoms are aggravated by swallowing. Associated signs and symptoms: The patient has no apparent associated signs or symptoms. The patient has experienced similar episodes in the past, several times. Historical: - Allergies: 09:48 NKDA; bp - PMHx: 09:48 Bipolar disorder; Ovarian cyst; bp - Immunization history:: Adult Immunizations up to date. - Infectious Disease History:: Denies. - Social history:: Smoking status: Patient denies any tobacco usage or history of. ROS: 10:44 Constitutional: Negative for fever, chills, and weight loss, Eyes: Negative for injury, marilee pain, redness, and discharge, Neck: Negative for injury, pain, and swelling, Cardiovascular: Negative for chest pain, palpitations, and edema, Respiratory: Negative for shortness of breath, cough, wheezing, and pleuritic chest pain, Abdomen/GI: Negative for abdominal pain, nausea, vomiting, diarrhea, and constipation, Back: Negative for injury and pain, : Negative for injury, bleeding, discharge, and swelling, MS/Extremity: Negative for injury and deformity, Skin: Negative for injury, rash, and discoloration, Neuro: Negative for headache, weakness, numbness, tingling, and seizure, Psych: Negative for depression, anxiety, suicide ideation, homicidal ideation, and hallucinations, Allergy/Immunology: Negative for hives, rash, and allergies, Endocrine: Negative for neck swelling, polydipsia, polyuria, polyphagia, and marked weight changes, Hematologic/Lymphatic: Negative for swollen nodes, abnormal bleeding, and unusual bruising, 10:44 ENT: Positive for sinus congestion, sore throat, Exam: 10:44 Constitutional: This is a well developed, well nourished patient who is awake, alert, marilee and in no acute distress. Head/Face: Normocephalic, atraumatic. Eyes: Pupils equal round and reactive to light, extra-ocular motions intact. Lids and lashes normal. Conjunctiva and sclera are non-icteric and not injected. Cornea within normal limits. Periorbital areas with no swelling, redness, or edema. Neck: Trachea midline, no thyromegaly or masses palpated, and no cervical lymphadenopathy. Supple, full range of motion without nuchal rigidity, or vertebral point tenderness. No Meningismus. Chest/axilla: Normal chest wall appearance and motion. Nontender with no deformity. No lesions are appreciated. Cardiovascular: Regular rate and rhythm with a normal S1 and S2. No gallops, murmurs, or rubs. Normal PMI, no JVD. No pulse deficits. Respiratory: Lungs have equal breath sounds bilaterally, clear to auscultation and percussion. No rales, rhonchi or wheezes noted. No increased work of breathing, no retractions or nasal flaring. Abdomen/GI: Soft, non-tender, with normal bowel sounds. No distension or tympany. No guarding or rebound. No evidence of tenderness throughout. Back: No spinal tenderness. No costovertebral tenderness. Full range of motion. Skin: Warm, dry with normal turgor. Normal color with no rashes, no lesions, and no evidence of cellulitis. MS/ Extremity: Pulses equal, no cyanosis. Neurovascular intact. Full, normal range of motion., bilateral aka Neuro: Awake and alert, GCS 15, oriented to person, place, time, and situation. Cranial nerves II-XII grossly intact. Motor strength 5/5 in all extremities. Sensory grossly intact. Cerebellar exam normal. Normal gait. Psych: Awake, alert, with orientation to person, place and time. Behavior, mood, and affect are within normal limits. 10:44 ENT: Posterior pharynx: Airway: normal, Tonsils: bilaterally enlarged, Uvula: normal, swelling, that is mild, erythema, that is mild, exudate, is not appreciated, peritonsillar mass, is not appreciated, pooling of secretions, is not appreciated, Vital Signs: 09:20 BP 138 / 85; Pulse 87; Resp 16; Temp 98.1; Pulse Ox 98% ; Weight 92.08 kg; Height 5 ft. bp 1 in. ; 09:20 Body Mass Index 38.36 (92.08 kg, 154.94 cm) bp MDM: 09:11 Medical Screening Exam initiated marilee 10:45 Differential diagnosis: influenza, laryngitis, mononucleosis, peritonsillar abscess marilee chlamydia pharyngitis, neisseria gonorrheoeae pharangitis, Mycoplasma Pharyngitis pharyngitis, retropharyngeal abcess tonsillitis, tracheobronchitis, upper respiratory infection, uvulitis, viral syndrome. Differential Diagnosis sepsis, flu. Data reviewed: vital signs, nurses notes, lab test result(s), Flu: negative. Consideration of Admission/Observation Escalation of care including admission/observation considered. I considered the following discharge prescriptions or medication management in the emergency department Medications were administered in the Emergency Department. See MAR. Test considered but Not performed: Labs: no cbc, no comp met. Historians other than the Patient: pt well informed. Care significantly affected by the following chronic conditions: bipolar, ovarian cyst. 11/17 09:12 Order name: Strep [facility] 11/17 09:12 Order name: Flu; Complete Time: 10:41 [facility] 11/17 09:12 Order name: SARS RAPID; Complete Time: 10:04 [facility] 11/17 10:03 Order name: Throat Culture EDMS Administered Medications: 09:23 Drug: AZITHromycin PO 500 mg PO once Route: PO; bp 10:56 Follow up: Response: No adverse reaction bp Disposition Summary: 11/17/24 10:47 Discharge Ordered Notes: Location: Home [facility] Problem: new marilee Symptoms: have improved marilee Condition: Stable marilee Diagnosis - Acute pharyngitis, unspecified marilee - Acute upper respiratory infection, unspecified marilee Followup: marilee - With: Private Physician - When: 2 - 3 days - Reason: Recheck today's complaints, Continuance of care, Re-evaluation by your physician Discharge Instructions: - Discharge Summary Sheet marilee - Pharyngitis marilee - Sore Throat marilee - Cool Mist Vaporizer marilee - Pharyngitis, [id number] marilee Forms: - Medication Reconciliation Form marilee - Antibiotic Education marilee - Prescription Opioid Use marilee - Patient Portal Instructions [facility] - Leadership Thank You Letter marilee Prescriptions: - Faye-D 12 Hour 60-120 mg Oral Tablet Sustained Release 12 hr - take 1 tablet ORAL route every 12 hours As needed; 20 tablet; Refills: 0, [facility] Product Selection Permitted - Tessalon Perles 100 mg Oral capsule - take 2 capsule ORAL route every 8 hours As needed; 30 capsule; Refills: 0, [facility] Product Selection Permitted - Zithromax 500 mg Oral tablet - take 1 tablet ORAL route once daily for 4 days; 4 tablet; Refills: 0, Product [facility] Selection Permitted Signatures: Dispatcher [employer] EDLogan Samuel MD MD cha Peltier, Brian, RN RN bp Corrections: (The following items were deleted from the chart) : 09:12 Influenza Screen (A \T\ B)+BA.LAB.BRZ ordered. EDMS EDMS :12 09:12 SARS-COV-2 Antigen Rapid+I.LAB.BRZ ordered. EDMS EDMS :12 09:12 Group A Streptococcus Rapid Sc+BA.LAB.BRZ ordered. EDNH EDMS
[2024-11-17 11:03] VITALS: BP 138/85; TEMP 98.1; O2SAT 98
== END 2024-11-17 10:56 | disposition home or self-care (01) ==
LOC: ER 09:08
DX: J06.9 Acute upper respiratory infection, unspecified (principal); Z11.52 Encounter for screening for COVID-19
CPT/HCPCS: 36415; 87070; 87081; 87804; 87811; 99283